=== PATIENT | female | born 1930 | race African-American/Black ===

== ENCOUNTER 2016-12-16 14:27 | Inpatient (IN) | payer MEDICARE, OTHER ==
[~2016-12-16] VITALS: Ht 163.2 cm; Wt 81.7 kg
[~2016-12-16 14:27] MED LIST: ALBU8.5H8 INH; ALLO100T PO; ALPR0.25 PO; AMLO10TA2 PO; AMLO10TA4 PO; AMLO5TAB2 PO; ASPI-612 PO; ASPI-630 PO; ATOR40TA PO; ATORVASTATIN CA80 MG PO; BUME1TAB PO; CITA40TA12 PO; CLOP75TA57 PO; DEXL60CA2 PO; ESOM40CA PO; EXEN2VIA SQ; EZET10TA18 PO; FERR-26 PO; FURO-68 PO; FURO-69 PO; FURO40TA4 PO; GLIP-26 PO; GLIP10TA13 PO; GUAI-107 PO; INSU100I17 SQ; INSU100I27 SQ; INSU100V13 SQ; INSU300I SQ; IPRA3AMP NEB; ISOS10TA2 PO; ISOS30TA4 PO; LIDO700A4 TP; LISI-338 PO; MECL25TA3 PO; METO10TA81 PO; METO25TA4 PO; METO50TA2 PO; NEBI10TA3 PO; NIFE30TA38 PO; NIFE60TA PO; NITR0.4T22 SL; PANT40TA5 PO; PIOG15TA42 PO; PRED-220 PO; PRED5TAB PO; RANO10002 PO; RANO500T2 PO; SUCR1TAB PO; SUCR1TAB35 PO; TRAM-48 PO; TRAM50TA PO; TRAZ-90 PO; TRAZ150T49 PO; UBID50CA25 PO; WARF-78 PO; WARF2TAB7 PO; WARF5TAB7 PO; Warfarin Sodium MC; co q 10
[2016-12-16 15:17] VITALS: BP 122/68
[2016-12-16 15:30] VITALS: BP 122/68
[2016-12-16 15:33] VITALS: BP 122/68
[2016-12-16] MEDS ORDERED: BUME2TAB PO (15:40)
[2016-12-16] MEDS ORDERED: ALBU1.25 NEB (15:43)
[2016-12-16 15:44] LABS: BASO # 0.1 x10^3/uL (0.0-0.2); BASO % 1 % (0-3); EOS # 0.1 x10^3/uL (0.0-0.7); EOS % 2 % (0-3); HEMATOCRIT 29.6 % (36.0-47.0); HEMOGLOBIN 9.7 g/dL (12.0-15.5); LYMPH # 1.8 x10^3/uL (1.0-4.8); LYMPH % 30 % (24-48); MEAN CORPUSCULAR HEMOGLOBIN 29 pg (25-35); MEAN CORPUSCULAR HGB CONC 33 g/dL (31-37); MEAN CORPUSCULAR VOLUME 87 fL (79-100); MONO # 0.5 x10^3/uL (0.0-1.1); MONO % 9 % (0-9); NEUT # 3.5 x10^3uL (1.8-7.7); NEUT % 59 % (31-73); PLATELET COUNT 182 x10^3/uL (140-400); RED BLOOD COUNT 3.39 x10^6/uL (3.50-5.40); RED CELL DISTRIBUTION WIDTH 15.4 % (11.5-14.5); WHITE BLOOD COUNT 5.9 x10^3/uL (4.0-11.0)
[2016-12-16] MEDS ORDERED: UBID100C26 PO (15:47)
[2016-12-16] MEDS ORDERED: ENOX40DI SQ (15:48)
[2016-12-16] MEDS ORDERED: CARV40CP PO (15:50)
[2016-12-16 15:51] LABS: ALBUMIN 3.2 g/dL (3.4-5.0); ALBUMIN/GLOBULIN RATIO 0.9 (1.0-1.7); CREATININE 1.8 mg/dL (0.6-1.0); GFR 32.3; MAGNESIUM 2.1 mg/dL (1.8-2.4); POTASSIUM 4.7 mmol/L (3.5-5.1); TOTAL BILIRUBIN 0.3 mg/dL (0.2-1.0); TOTAL PROTEIN 6.7 g/dL (6.4-8.2)
[2016-12-16] MEDS ORDERED: MAGN400T3 PO (15:51)
[2016-12-16] MEDS ORDERED: NIFE60TA16 PO (15:52)
[2016-12-16] MEDS ORDERED: INSU300I SQ (16:14)
[2016-12-16] MEDS ORDERED: traMADol 50 MG TABLET PO PRN (16:15)
[2016-12-16] MEDS ORDERED: MECLIZINE 25 MG TABLET PO PRN (16:15)
[2016-12-16] MEDS ORDERED: NITROGLYCERIN SUBLINGUAL 0.4 MG BOTTLE OF 25. SL PRN (16:15)
[2016-12-16] MEDS ORDERED: ALPRAZolam 0.25 MG TABLET PO PRN (16:15)
[2016-12-16] MEDS ORDERED: LIDOCAINE (700MG/PATCH) PATCH. TP PRN (16:15)
[2016-12-16] MEDS ORDERED: NON FORMULARY ITEM (Albuterol Sulfate (Albuterol Sulfate Neb Soln) 1 VIAL) NEB PRN (16:15)
[2016-12-16] MEDS ORDERED: DEXTROSE 50% 25 GM / 50ML DISP.SYRIN. IV PRN (16:30)
[2016-12-16] MEDS: INSULIN ASPART 300 UNITS/3 ML INSULN.PEN SQ SCH ×2 (16:30→20:23)
[2016-12-16] MEDS: SUCRALFATE 1 GM TABLET. PO SCH ×2 (16:58→20:18)
[2016-12-16] MEDS ORDERED: CARVEDILOL 12.5 MG TABLET PO SCH (17:00)
[2016-12-16] MEDS ORDERED: ALBUTEROL SULFATE 2.5 MG/3 ML NEBU. NEB PRN (17:15)
[2016-12-16] MEDS ORDERED: ENOXAPARIN 30 MG/0.3 ML DISP.SYRIN. SQ SCH ×2 (17:30→21:00)
[2016-12-16 18:45] VITALS: BP 157/76
[2016-12-16] MEDS: INSULIN DETEMIR 300 UNITS/3 ML INSULN.PEN. SQ SCH (20:19)
[2016-12-16] MEDS ORDERED: glipiZIDE XL 10 MG TAB.ER.24 PO SCH (21:00)
[2016-12-16] MEDS ORDERED: INSULIN DETEMIR 300 UNITS/3 ML INSULN.PEN. SQ SCH (21:00)
[2016-12-16] MEDS ORDERED: traZODone 50 MG TABLET. PO SCH (21:00)
[2016-12-16 22:47] VITALS: BP 166/68
[2016-12-17 05:03] VITALS: BP 122/58
[2016-12-17 06:18] LABS: HEMATOCRIT 28.9 % (36.0-47.0); HEMOGLOBIN 9.5 g/dL (12.0-15.5); RED BLOOD COUNT 3.31 x10^6/uL (3.50-5.40); RED CELL DISTRIBUTION WIDTH 15.3 % (11.5-14.5); WHITE BLOOD COUNT 5.6 x10^3/uL (4.0-11.0)
[2016-12-17 06:33] LABS: ALBUMIN 3.1 g/dL (3.4-5.0); ALBUMIN/GLOBULIN RATIO 0.9 (1.0-1.7); CREATININE 1.7 mg/dL (0.6-1.0); GFR 34.5; POTASSIUM 4.5 mmol/L (3.5-5.1); TOTAL BILIRUBIN 0.3 mg/dL (0.2-1.0); TOTAL PROTEIN 6.5 g/dL (6.4-8.2)
[2016-12-17] MEDS: INSULIN ASPART 300 UNITS/3 ML INSULN.PEN SQ SCH ×4 (07:20→20:25)
[2016-12-17] MEDS ORDERED: PANTOPRAZOLE 40 MG TABLET. PO SCH (07:30)
[2016-12-17] MEDS ORDERED: UBIDECARENONE 50 MG CAPSULE. PO SCH (09:00)
[2016-12-17] MEDS: SUCRALFATE 1 GM TABLET. PO SCH (09:00)
[2016-12-17] MEDS ORDERED: LISINOPRIL 5 MG TABLET. PO SCH (09:00)
[2016-12-17] MEDS ORDERED: MAGNESIUM OXIDE 400 MG TABLET PO SCH (09:00)
[2016-12-17] MEDS ORDERED: BUMETANIDE 2 MG TABLET PO SCH (09:00)
[2016-12-17] MEDS ORDERED: ISOSORBIDE MONONITRATE ER 30 MG TAB.ER.24H PO SCH (09:00)
[2016-12-17] MEDS ORDERED: NIFEDIPINE PO SCH (09:00)
[2016-12-17] MEDS ORDERED: NON FORMULARY ITEM (Nebivolol Hcl (Bystolic) 1 TAB) PO SCH (09:00)
[2016-12-17] MEDS ORDERED: amLODIPine BESYLATE 5 MG TABLET PO SCH (09:00)
[2016-12-17] MEDS: BUMETANIDE 1 MG TABLET PO SCH (09:30)
[2016-12-17] MEDS ORDERED: METO25TA4 PO (10:01)
[2016-12-17] MEDS ORDERED: LOSA50TA6 PO (10:01)
[2016-12-17] MEDS ORDERED: APIX2.5T PO (10:04)
[2016-12-17] MEDS ORDERED: RANO500T2 PO (10:04)
[2016-12-17] MEDS ORDERED: AMLO5TAB2 PO ×2 (10:04→10:19)
[2016-12-17] MEDS ORDERED: CHOL2000 PO (10:04)
[2016-12-17] MEDS ORDERED: INSU100V13 SQ (10:07)
[2016-12-17] MEDS ORDERED: ALPR0.25 PO (10:16)
[2016-12-17 10:44] VITALS: BP 135/66
[2016-12-17] MEDS: LOSARTAN 50 MG TABLET. PO SCH (11:12)
[2016-12-17] MEDS: RANOLAZINE 500 MG TAB.ER.12H PO SCH ×2 (11:12→20:28)
[2016-12-17] MEDS: ALPRAZolam 0.25 MG TABLET PO SCH ×2 (11:12→20:27)
[2016-12-17] MEDS: APIXABAN 2.5 MG TABLET PO SCH ×2 (11:12→20:27)
--- NOTE | 2016-12-17 13:08 | HP ---
ADMIT DATE: 12/17/2016 REASON FOR ADMISSION: Hypoglycemia, weakness, falls. HISTORY OF PRESENT ILLNESS: This is an 86-year-old female who was just in the hospital at [facility] from 12/06/2016 to 12/08/2016. She was sent back home. She was admitted for low blood sugar as well as falling, but did not stay long enough to be able to go to rehabilitation. One of her daughters called me yesterday and stated that she was still very weak. She was still having low blood sugars and was not able to get around very well, and so was admitted for evaluation. The patient reports not resting, very nervous, her bowels not moving and still some dizziness and low blood sugars at home. PAST MEDICAL HISTORY: The patient has had [id number] congestive heart failure multiple times, acute coronary syndrome requiring a stent, coronary artery disease with stents, chronic kidney disease stage 3, paroxysmal atrial fibrillation, hypertension, diabetes, long-term use of anticoagulants, moderate protein malnutrition, falls. She has sick sinus syndrome with a pacemaker placement, has had a CVA with left-sided weakness, history of TIAs, and osteoarthritis. PAST SURGICAL HISTORY: Coronary artery disease, status post PTCA, coronary angioplasty x 2 and stent deployment, sick sinus syndrome with permanent pacemaker implantation. She has had bilateral cataract extraction, cholecystectomy, appendectomy, tubal ligation, back surgery, left total hip, bilateral total knees, carpal tunnel release, laminectomy, tibial plateau, arthroplasty, and repair of umbilical hernia. ALLERGIES: Penicillin, influenza vaccine, amoxicillin, cephalexin, Reglan, Flexeril. FAMILY HISTORY: Positive for diabetes, hypertension, and stroke in her mother. SOCIAL HISTORY: She is a . She has 5 sons and 6 daughters, most of whom live in the area. Two sons live with her and currently, there is someone with her at all times. She quit driving about a year ago. 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 MEDICATIONS: Reviewed and corrected and are available on the MAR. REVIEW OF SYSTEMS: According to the patient, positive for insomnia, not resting, continued dizziness, low blood sugars, constipation. OBJECTIVE: VITAL SIGNS: Blood pressure pulse 73, respirations 20, pulse ox 96% on room air. Height 64.25 inches, weight 181.5 pounds. GENERAL: Pleasant elderly female, in no acute distress. HEENT: Her hearing is normal. Her eyes are clear. Nose is patent. Throat was clear. NECK: Supple, without adenopathy. LUNGS: Clear to auscultation. CARDIOVASCULAR: Regular rhythm and rate with a 2/6 systolic murmur. ABDOMEN: Mildly protuberant. Bowel sounds are positive. Nontender. EXTREMITIES: With a trace of edema. NEUROLOGIC: She is intact. Her gait was not examined. LABORATORY DATA: Her fasting glucose this morning was 52, yesterday afternoon was 64 with at bedtime of 207. Albumin is 3.1, BUN 25, creatinine 1.7. Hemoglobin 9.5, hematocrit 28.9. ASSESSMENT: 1. Weakness. 2. Hypoglycemia. 3. Constipation. 4. Insomnia. 5. Gastroparesis. 6. Frequent falls. 7. Multiple other chronic kidney disease, stage 3. 8. Long-term use of anticoagulants. PLAN: PT and OT evaluation and we will try to do swing bed and adjust her diabetes medications as the risk of hypoglycemia is certainly greater than mild hyperglycemia and we will monitor for falls. WARD ALCANTAR DO DR: CHANG/deepak JOB#: [id number] / [id number]
[2016-12-17 14:47] VITALS: BP 124/68
--- NOTE | 2016-12-17 17:02 | ACF ---
Admission Criteria Forms GENERAL ADMISSION CRITERIA (Place 'X' for any and all applicable criteria): Admission is indicated for ANY ONE of the following: [ ]I. Hemodynamic instability as indicated by ANY ONE of the following(1)(2) (3)(4)(5): [ ]a) Vital sign abnormality not readily corrected by appropriate treatment within 12 to 24 hours indicated by ANY ONE of the following: [ ]i) Hypotension [ ]ii) Symptomatic Tachycardia unresponsive to treatment (eg , analgesia, fluids, sedation as indicated) [ ]iii) Orthostatic vital sign changes unresponsive to treatment (eg, fluids) [ ]b) Vital sign abnormality that is severe indicated by ANY ONE of the following: [ ]i) Inadequate perfusion indicated by ANY ONE of the following: [ ]1) Lactic acidosis (greater than 2 mmol/L) [ ]2) New abnormal capillary refill (greater than 3 seconds) [ ]3) Other metabolic acidosis (arterial pH less than 7.35) not otherwise explained [ ]4) Reduced urine output [ ]5) Altered mental status [ ]6) Myocardial Ischemia [ ]v) Mean arterial pressure[A] less than 60 mm Hg [ ]vi) Mean arterial pressure[A] less than 70 mm Hg after 30 minutes of appropriate treatment (eg, fluid resuscitation) [ ]vii) IV inotropic or vasopressor medication required to maintain adequate blood pressure or perfusion [ ]viii) Sustained heart rate greater than 120 beats per minute in adult or child 6 years or older[B]] [ ]II. Hypertension requiring inpatient treatment as indicated by ANY ONE of the following(6)(7)(8): [ ]a) SBP greater than 220 mm Hg or DBP greater than 120 mm Hg despite treatment [ ]b) SBP greater than 140 mm Hg or DBP greater than 100 mm Hg with evidence of acute end organ damage as indicated by ANY ONE of the following: [ ]i) Encephalopathy [ ]ii) Acute renal failure as indicated by new onset of ANY ONE of the following(9)(10)(11)(12)(13): [ ]1) A 3-fold rise in serum creatinine from baseline [ ]2) Serum creatinine greater than 4 mg/dL ( 354 micromoles/L) with acute rise greater than 0.5 mg/dL (44.2 micromoles/L) [ ]3) Reduction of more than 75% in estimated glomerular filtration rate from baseline [ ]4) Estimated glomerular filtration rate less than 35 mL/min/1.73m2 (0.59 mL/sec/1.73m2) in child up to 18 years of age [ ]5) Cessation of urine output indicated by ALL of the following: [ ]A. Adequate volume status [ ]B. Inadequate urine output as indicated by ANY ONE of the following: [ ]a. Urine output less than 0.3 mL/kg/hr for 24 hours [ ]b. Anuria (urine output less than 0.1 mL/kg/hr) for 12 hours [ ]iii) Aortic dissection [ ]iv) Myocardial ischemia [ ]v) Left ventricular heart failure [ ]vi) Retinal hemorrhage [ ]vii) Other significant finding [ ]c) Hypertension in child requiring inpatient treatment as indicated by ALL of the following(14)(15)(16): [ ]i) Outpatient treatment not effective, not available, or not appropriate [ ]ii) SBP or DBP greater than 95th percentile for age [ ]iii) Evidence of acute end organ damage as indicated by ANY ONE of the following: [ ]1) Altered mental status [ ]2) Acute renal failure as indicated by new onset of ANY ONE of the following(9)(10)(11)(12)(13): [ ]A. A 3-fold rise in serum creatinine from baseline [ ]B. Serum creatinine greater than 4 mg/dL (354 micromoles/L) with acute rise greater than 0.5 mg/dL (44.2 micromoles/L) [ ]C. Reduction of more than 75% in estimated glomerular filtration rate from baseline [ ]D. Estimated glomerular filtration rate less than 35 mL/min/1.73m2 (0.59 mL/sec/1.73m2)in child up to 18 years of age [ ]E. Cessation of urine output indicated by ALL of the following: [ ]a. Adequate volume status [ ]b. Inadequate urine output as indicated by ANY ONE of the following: [ ]1) Urine output less than 0.3 mL/kg/hr for 24 hours [ ]2) Anuria (urine output less than 0.1 mL/kg/hr) for 12 hours [ ]3) Severe headache [ ]4) Visual disturbance [ ]5) Retinal hemorrhage [ ]6) Other significant finding [ ]III. Acute cardiac or peripheral ischemia as indicated by ANY ONE of the following: [ ]a) Acute coronary syndrome(17)(18) [ ]b) Acute peripheral ischemia (eg, pulseless, cool, mottled, or cyanotic extremity)(19) [ ]IV. Cardiac arrhythmias or findings of immediate concern indicated by ANY ONE of the following(20)(21): [ ]a) Heart rhythms that are inherently dangerous or unstable indicated by ANY ONE of the following(22)(23)(24): [ ]i) Resuscitated ventricular fibrillation or cardiac arrest [ ]ii) Ventricular escape rhythm [ ]iii) Sustained ventricular tachycardia (30 seconds or more of ventricular rhythm at greater than 100 beats per minute) [ ]iv) Nonsustained ventricular tachycardia and ANY ONE of the following: [ ]1) Suspected cardiac ischemia as cause or consequence of ventricular tachycardia [ ]2) In setting of acute myocarditis [ ]b) Unstable cardiac conduction defects indicated by ANY ONE of the following(24)(25)(26): [ ]i) Type II second-degree atrioventricular block [ ]ii) Third-degree atrioventricular block [ ]iii) New-onset left bundle branch block with suspected myocardial ischemia [ ]c) Any heart rhythm and ANY ONE of the following(22)(23)(27)(28)( 29): [ ] i) Continuous long-term ECG monitoring needed (eg, initiation of drug requiring monitoring for more than 24 hours) [ ] ii) Patient has automatic implanted cardioverter defibrillator that is repeatedly firing, malfunctioning, or in need of immediate adjustment of settings beyond the scope of ambulatory or observation care. [ ]d) Heart rhythms of concern due to ANY ONE of the following: [ ]i) Hypotension [ ]ii) Respiratory distress [ ]iii) Association with other significant symptoms (eg, bradycardia with syncope or ongoing dizziness, supraventricular tachycardia with chest pain) (27)(28) (30) [ ] V. Severe heart failure as indicated by ANY ONE of the following ( 31)(32): [ ]a) Respiratory distress [ ]b) Hypotension [ ]c) Anasarca (refractory to outpatient therapy) [ ]d) Cardiac arrhythmias of immediate concern [ ]e) Myocardial ischemia [ ]. Respiratory abnormalities, including ANY ONE of the following(33)(34) (35)(36): [ ]a) Respiratory rate greater than 30 breaths per minute unresponsive to treatment [A] [ ]b) New saturation of arterial oxygen less than 90% [ ]c) New partial pressure of carbon dioxide greater than 44 mm Hg ( 5.9 kPa) [ ]d) Supplemental oxygen or respiratory treatments needed that are new or not performable at other levels of care [ ]e) New-onset cyanosis [ ]f) Inability to protect airway [ ]g) Chronic lung disease with severe deterioration (not responsive to emergency and observation care treatment as appropriate) as indicated by ANY ONE of the following(34)(36 ): [ ]i) SaO2 5% below baseline in patient with chronic hypoxemia [ ]ii) New requirement for supplemental oxygen to keep SaO2 at baseline or acceptable level [ ]iii) Required supplemental oxygen performable only in acute inpatient setting [ ]iv) Severe airflow or ventilation abnormalities [ ]v) Previously mobile patient unable to walk between rooms [ ]vi Inability to eat or sleep due to dyspnea [ ]vii) Rapid rate of exacerbation onset [ ]viii) Altered mental status ]VII. Severe airflow or ventilation abnormalities (not responsive to emergency and observation care treatment as appropriate) as indicated by ANY ONE of the following(33)(34)(35)(37): [ ]a) PCO2 greater than 42 mm Hg (5.6 kPa) and pH less than 7.35 (new ) [ ]b) Documented PCO2 increased more than 5 mm Hg (0.7 kPa) from disease baseline [ ]c) Airflow measurements [B] less than 60% of previous best or predicted (eg, peak expiratory flow rate less than 300 L/minute) despite intensive emergent treatment [C] [ ]d) Required respiratory treatments that are performable only in acute inpatient setting [ ]VIII. Impending or actual respiratory arrest ( Also use Respiratory Failure GRG for severe respiratory disease and long-term mechanical ventilation patients) [ ]IX. Neurologic abnormalities, including ANY ONE of the following: [ ]a) New findings that suggest ANY ONE of the following: [ ]i) CLOTH EXAMINER infection(38) [ ]ii) Cerebral bleeding, ischemia, or vasospasm(39)(40) [ ]iii) Increased intracranial pressure, hydrocephalus, or cerebral edema(41)(42)(43) [ ]iv) Spinal cord injury(44) [ ]b) Uncontrolled seizures(45) [ ]c) New-onset coma (eg, Merritt coma scale score less than 9) or unexplained abnormal mental status (eg, Merritt coma scale score less than 14) [D](41)(46)(47) [ ]X. New-onset severe neurologic findings requiring inpatient care; examples include(42)(48)(49): [ ]a) Papilledema [ ]b) Cerebral edema [ ]c) Mass effect on CT scan [ ]XI. Suspected acute intra-abdominal process with peritoneal signs, abdominal mass, or similar findings (50)(51)(52) [X]XII. Severe physiologic disorder remaining after emergency or observation level care (as appropriate) as indicated by ANY ONE of the following (53): [ ]a) Significant dehydration [ ]b) Diabetic ketoacidosis [ ]c) Hyperglycemic hyperosmolar state (eg, osmolality greater than 320 mOsm/kg (mmol/kg) [X]d) Hypoglycemia [ ]e) Other (new) acid-base disorder with pH less than 7.35 or greater than 7.5(54) [ ]f) Thyroid storm (55) [ ]g) Myxedema coma (55) [ ]XIII. Abdominal abnormalities with ANY ONE of the following(56)(57): [ ]a) Absent bowel sounds with complete ileus [ ]b) Signs of intestinal obstruction or peritonitis [E] [ ]c) Nausea and vomiting that cannot be controlled with outpatient or observation care [ ]XIV. Acute renal failure as indicated by new onset of ANY ONE of the following(9)(10)(11)(12)(13): [ ]a) A 3-fold rise in serum creatinine from baseline [ ]b) Serum creatinine greater than 4 mg/dL (354 micromoles/L) with acute rise greater than 0.5 mg/dL (44.2 micromoles/L) [ ]c) Reduction of more than 75% in estimated glomerular filtration rate from baseline [ ]d) Estimated glomerular filtration rate less than 35 mL/min/ 1.73m2 (0.59 mL/sec/1.73m2) in child up to 18 years of age [ ]e) Cessation of urine output indicated by ALL of the following: [ ]i) Adequate volume status [ ]ii) Inadequate urine output as indicated by ANY ONE of the following: [ ]1) Urine output less than 0.3 mL/kg/hr for 24 hours [ ]2) Anuria (urine output less than 0.1 mL/kg/hr) for 12 hours [ ]XV. Significant uremic complications as indicated by ANY ONE of the following(58)(59)(60): [ ]a) Outpatient therapy is ineffective or not feasible for ANY ONE of the following: [ ]i) Severe heart failure [ ]ii) Severehypertension [ ]iii) Pleural effusion [ ]iv) Pericarditis or pericardial effusion [ ]b) Cardiac arrhythmias of immediate concern [ ]c) Intractable nausea or vomiting [ ]d) Recurrent seizures [ ]e) Encephalopathy [ ]f) Bleeding abnormalities (eg, platelet dysfunction) with active (eg, gastrointestinal) bleeding [ ]g) Dialysis indicated before long-term access or ambulatory arrangements can be made [ ]h) Significant metabolic or electrolyte abnormalities (eg, severe acidosis or hyperkalemia) [ ]XVI. High fever or other high-risk infection situation as indicated by ANY ONE of the following(61)(62)(63)(64): [ ]a) Outpatient and observation care antimicrobial treatment unavailable, not effective, or not appropriate [ ]b) Documented bacteremia [ ]c) Temperature greater than 40.5 degrees C (104.9 degrees F) ( oral) [ ]d) Temperature greater than 39.5 degrees C (103.1 degrees F) ( oral) or less than 36 degrees C (96.8 degrees F) (rectal) that does not respond to e treatment and observation care [ ] XVII. Temperature less than 95 degrees F (35 degrees C)(rectal)(65) [ ] XVIII. Severe nutritional abnormalities as indicated by ALL of the following (66)(67): [ ]a) Inability to tolerate or establish sufficient oral or other enteral nutrition in outpatient setting [ ]b) Parenteral nutrition regimen need that must be implemented on inpatient basis [ ] XIX. Severe electrolyte abnormalities indicated by ALL of the following(68) (69)(70): [ ]a) Electrolytes and associated findings are not as expected for patient baseline or acceptable treatment effects. [ ]b) Severe abnormalities indicated by ANY ONE of the following: [ ]i) Sodium less than 130 mEq/L (mmol/L) (new) [ ]ii)Sodium less than 135 mEq/L (mmol/L) with ANY ONE of the following: [ ]1) Uncorrectable (to near normal or chronic baseline) after trial of outpatient and emergency treatment [ ]2) Altered mental status [ ]3) Seizures [ ]4) Severe medical etiology requiring inpatient management (eg, heart failure, hypovolemia) [ ]iii) Sodium greater than 155 mEq/L (mmol/L) [ ]iv) Sodium greater than 150 mEq/L (mmol/L) with ANY ONE of the following: [ ]1) Uncorrectable (to near normal or chronic baseline) with outpatient and emergency treatment [ ]2) Altered mental status [ ]3) Seizures [ ]4) Severe medical etiology (eg, hypovolemia, diabetes insipidus) [ ]v) Potassium less than 2.5 mEq/L (mmol/L) despite outpatient and emergency treatment [ ]vi) Potassium less than 3 mEq/L (mmol/L) with ANY ONE of the following: [ ]1) Weakness [ ]2) Cardiac abnormality (eg, arrhythmia, conduction disturbance) [ ]3) Cardiac ischemia [ ]4) Ileus [ ]5) Ongoing medical cause requiring inpatient management (eg, acute renal wasting or SIADH) [ ]6) Other severe symptoms [ ]vii) Potassium greater than 6.5 mEq/L (mmol/L) [ ]viii) Potassium greater than 5 mEq/L (mmol/L) with ANY ONE of the following: [ ]1) Uncorrectable (to near normal or chronic baseline) with outpatient and emergency treatment [ ]2) Severe ECG findings [F] [ ]3) Acute worsening of renal failure (creatinine greater than 2.5 mg/dL (221 micromoles/L) or significant elevation for age and size) [ ]4) Severe weakness [ ]5) Severe medical etiology (eg, hemolysis, infection, drug overdose) [ ]ix) Calcium less than 7 mg/dL (1.75 mmol/L) despite outpatient and emergency treatment (72) [ ]x) Calcium less than 8 mg/dL (2 mmol/L) with significant symptoms or findings; examples include(72): [ ]1) Altered mental status [ ]2) Muscle spasms [ ]3) Seizures [ ]4) Breathing difficulty [ ]5) Cardiac abnormality (eg, arrhythmia or conduction disturbance) [ ]xi) Calcium greater than 14 mg/dL (3.5 mmol/L)(72) [ ]xii) Calcium greater than 12 mg/dL (3 mmol/L) with ANY ONE of the following(72): [ ]1) Uncorrectable (to near normal or chronic baseline) with outpatient and emergency treatment [ ]2) Significant dehydration or hypovolemia as indicated by ALL of the following(70)(73)(74): [ ]A. Not resolved with initial treatments [ ]B. Clinically significant dehydration as indicated by ANY ONE of the following: [ ]a. Vomiting refractory to outpatient treatment (ie, precluding oral rehydration) [ ]b. Inability to drink [ ]c. Hypernatremia or other electrolyte abnormality unable to be corrected with outpatient and emergency treatment [ ]d. Failure to remain hydrated with outpatient therapy [ ]e. Reduced urine output [ ]f. Hypotension [ ]g. Serious cause for dehydration requiring acute hospitalization (eg, bowel obstruction, increased intracranial pressure, infectious cause) [ ]h. Child with ANY ONE of the following(75): [ ]1) Severe abdominal tenderness [ ]2) Adequate care not available at home [ ]3) Severe dehydration ( greater than 9% loss of body weight) [ ]4) Significant symptoms or findings; examples include: [ ]A. Altered mental status [ ]B. Cardiac abnormality (eg, arrhythmia, conduction disturbance) [ ]C. Malignant etiology requiring inpatient treatment [ ]xiii) Phosphorus less than 1 mg/dL (0.32 mmol/L) [ ]xiv) Phosphorus less than 1.5 mg/dL (0.48 mmol/L) with ANY ONE of the following: [ ]1) Patient unresponsive to outpatient and emergency treatment [ ]2) Significant symptoms or findings; examples include: [ ]A. Weakness [ ]B. Altered mental status [ ]C. Breathing difficulty [ ]D. Seizures [ ]E. Rhabdomyolysis [ ]xv) Phosphorus greater than 10 mg/dL (3.2 mmol/L) [ ]xvi) Phosphorus greater than 4.5 mg/dL (1.45 mmol/L) (new) with ANY ONE of the following: [ ]1) Severe medical etiology (eg, crush injury, acute renal failure) [ ]2) Associated hypocalcemia with significant findings; examples include: [ ]A. Neurologic symptoms [ ]B. Altered mental status [ ]C. Muscle spasms [ ]D. Seizures [ ]E. Breathing difficulty [ ]F. Cardiac abnormality (eg, arrhythmia, conduction disturbance) [ ]xvii) Magnesium less than 1 mg/dL (0.41 mmol/L) [ ]xviii) Magnesium less than 1.5 mg/dL (0.62 mmol/L) with ANY ONE of the following: [ ]1) Patient unresponsive to outpatient and emergency treatment [ ]2) Associated hypocalcemia with significant findings; examples include: [ ]A. Altered mental status [ ]B. Muscle spasms [ ]C. Seizures [ ]D. Breathing difficulty [ ]E. Cardiac abnormality (eg, arrhythmia , conduction disturbance) [ ]3) Associated hypokalemia (potassium less than 3 mEq/L (mmol/L)) with risk of arrhythmia [ ]xix) Magnesium greater than 4 mEq/L (2 mmol/L) [ ]xx) Magnesium greater than 2.5 mEq/L (1.25 mmol/L) with significant symptoms or findings; examples include: [ ]1) Weakness [ ]2) Altered mental status [ ]3) Cardiac abnormality (eg, arrhythmia, conduction disturbance) [ ]4) Breathing difficulty [ ]5) Severe medical etiology (eg, renal failure, hypovolemia) [ ]xxi) Uric acid greater than 20 mg/dL (1190 micromoles/L)(76) [ ]xxii) Uric acid greater than 8 mg/dL (476 micromoles/L) with significant symptoms or findings of tumor lysis syndrome; examples include(76): [ ]1) Creatinine greater than 1.5 times upper limit of normal [ ]2) Cardiac abnormality (eg, arrhythmia, conduction disturbance) [ ]3) Seizure [ ]XX. Acute blood loss causing significant abnormality as indicated by ANY ONE of the following(77)(78): [ ]a) Hemoglobin less than 10 g/dL (100 g/L) (not baseline) [ ]b) Hematocrit less than 30% (0.30) (not baseline) [ ]c) Repeat hematocrit decreased more than 2% (0.02) [ ]d) Uncontrolled bleeding [ ]XXI. Severe anemia indicated by ANY ONE of the following(78)(79): [ ]a) Altered mental status [ ]b) Chest pain [ ]c) Exertional dyspnea [ ]d) Syncope [ ]e) Other findings suggesting inadequate perfusion [ ]f) Treatment with transfusion or volume replacement is ineffective at resolving ANY ONE of the following [G]: [ ]i) Tachycardia for age [ ]ii) Orthostatic vital sign changes as indicated by ANY ONE of the following(80): [ ]1) Fall in SBP of 20 mm Hg or more 1 to 3 minutes after patient sits or stands from recumbent position [ ]2) Fall in DBP of 10 mm Hg or more 1 to 3 minutes after patient sits or stands from recumbent position [ ]XXII. High-risk low platelet count as indicated by ANY ONE of the following( 81)(82): [ ]a) Severe or life-threatening bleeding (eg, intracranial, major gastrointestinal, or extensive mucosal bleeding), with any reduced platelet count [ ]b) Platelet count less than 20,000/mm3 (20 x109/L) with any active bleeding [ ]c) Platelet count less than 10,000/mm3 (10 x109/L) with minor purpura or petechiae [ ]d) Platelet count less than 5000/mm3 (5 x109/L) [ ]e) Low platelet count with hemolytic anemia [ ]XXIII. Disseminated intravascular coagulation(77)(83) [ ]XXIV. Severe adverse drug or systemic toxin reaction requiring inpatient treatment; examples include(84)(85): [ ]a) Serotonin syndrome(86) [ ]b) Neuroleptic malignant syndrome(86) [ ]c) Cholinergic syndrome with severe symptoms (eg, bronchorrhea, weakness, mental status changes, seizures) [ ]d) Sympathetic syndrome with severe symptoms (eg, seizures, mental status changes, cardiac dysrhythmias) [ ]e) Anticholinergic syndrome [ ]XXV. Severe pain requiring acute inpatient management as indicated by ALL of the following (87)(88)(89): [ ]a) Continuous or frequent (eg, every 2 to 4 hours) parenteral analgesics required [H] [ ]b) Rapid improvement expected from treatment or acute intervention (eg, surgery, anesthesia procedure) [ ]XXVI.Severe behavioral health issues judged unmanageable at a lower level of care (eg, residential) in a patient who is ANY ONE of the following(91) [ ]a) Acutely suicidal [ ]b) A danger to self (eg, self-mutilating or suicidal behavior) [ ]c) A danger to others (eg, assaultive or homicidal behavior) [ ]d) Incapacitated because of grave disability (eg, inability to provide for self at lower level of care) (92) [ ]XXVII. Inpatient monitoring needed; examples include(1)(3)(87)(93)(94)(95)(96 ): [ ]a) Vital signs, neurologic signs, or vascular checks more frequently than every 4 hours [ ]b) Cardiac or respiratory monitoring beyond the scope (eg, over 24 hours) of observation care [ ]c) Pulmonary artery catheter monitoring [ ]d) Suspected compartment syndrome(97) (98) [ ]e) Cerebral bleeding, hydrocephalus, or vasospasm monitoring [ ]f) Increased intracranial pressure or cerebral edema monitoring [ ]g) monitoring [ ]XXVIII. Treatment requiring inpatient care; examples include: [ ]a) IV fluid to replace significant ongoing losses (greater than 3 L/m2 per day)(53) [ ]b) High concentration oxygen (greater than 40%)(33)(99)(100) [ ]c) Frequent respiratory therapy (more frequently than every 4 hours) to maintain airflow rates greater than 60% of baseline(33)(99)(100) [ ]d) Epidural analgesia(87) [ ]e) IV anticoagulation, vasoactive, or antiarrhythmic medication(19 )(23) [ ]f) Acute thrombolytics (generally require 24 hours of observation )(101)(102) [ ]XXIX. Emergency procedures needed; examples include: [ ]a) Emergency inpatient surgery [ ]b) Temporary pacemaker placement(103) [ ]c) Chest tube placement with active evacuation (eg, suction, drainage)(104) [ ]d) Emergent cardioversion(105) [ ]e) Emergent cardiac or vascular procedures (eg, cardiac catheterization, angioplasty) (17)(18) [ ]f) Emergent dialysis access placement and institution(10)(106) [ ]g) Emergent pericardiocentesis(107) [ ]h) Emergent plasmapheresis or leukapheresis(83) [ ]i) Emergent tracheostomy The original [employer] content created by [employer] has been revised. The portions of the content which have been revised are identified through the use of italic text or in bold, and [facility] [employer] has neither reviewed nor approved the modified material. All other unmodified content is copyright [employer]. Please see references footnoted in the original [facility] edition 2016 Admission Criteria Met?: Yes YENNI SHAHID December 17, 2016 17:02
[2016-12-17 20:19] VITALS: BP 139/69
[2016-12-17] MEDS: INSULIN DETEMIR 300 UNITS/3 ML INSULN.PEN. SQ SCH (20:26)
[2016-12-17] MEDS: METOPROLOL TART IMMED RELEASE 25 MG TABLET PO SCH (20:27)
[2016-12-17 23:13] VITALS: BP 133/84
[2016-12-18] MEDS: INSULIN ASPART 300 UNITS/3 ML INSULN.PEN SQ SCH ×4 (07:30→20:31)
[2016-12-18 07:39] VITALS: BP 137/85
[2016-12-18] MEDS ORDERED: amLODIPine BESYLATE 5 MG TABLET PO SCH (09:00)
[2016-12-18] MEDS: BUMETANIDE 1 MG TABLET PO SCH (09:02)
[2016-12-18] MEDS: ALPRAZolam 0.25 MG TABLET PO SCH ×2 (09:02→20:31)
[2016-12-18] MEDS: APIXABAN 2.5 MG TABLET PO SCH ×2 (09:02→20:31)
[2016-12-18] MEDS: RANOLAZINE 500 MG TAB.ER.12H PO SCH ×2 (09:03→20:30)
[2016-12-18] MEDS: LOSARTAN 50 MG TABLET. PO SCH (09:04)
[2016-12-18] MEDS: METOPROLOL TART IMMED RELEASE 25 MG TABLET PO SCH ×2 (09:06→20:31)
[2016-12-18 10:45] VITALS: BP 158/65
[2016-12-18 14:27] VITALS: BP 126/66
[2016-12-18 17:52] VITALS: BP 129/74
[2016-12-18 20:31] VITALS: BP 129/74
[2016-12-18] MEDS: INSULIN DETEMIR 300 UNITS/3 ML INSULN.PEN. SQ SCH (20:33)
--- NOTE | 2016-12-19 01:16 | PN ---
DATE: 12/18/2016 PROBLEMS: 1. Weakness. 2. Hypoglycemia. 3. Constipation. 4. Insomnia. 5. Gastroparesis. 6. Frequent falls. 7. Long-term use of anticoagulants. 8. Chronic kidney disease, stage 3. 9. History of congestive heart failure. 10. Coronary artery disease. 11. Paroxysmal atrial fibrillation. 12. Normochromic normocytic anemia and mild protein-calorie malnutrition. NARRATIVE: An 86-year-old female who was admitted with weakness, hypoglycemia, and falls. Tonight will be her third night stay and she will be able to go to the swing bed status tomorrow. She was observed with the Physical Therapy Department ambulating in the [place] with a walker. The patient used some Smooth Move tea and was able to have a bowel movement and is feeling much better in that regard. OBJECTIVE: VITAL SIGNS: Blood pressure 158/65, pulse 72, respirations 20, temperature 97.7, pulse ox 100% on room air. GENERAL: The patient is sitting up in the chair, visiting. HEENT: Tongue was moist. NECK: Supple. LUNGS: Clear. CARDIOVASCULAR: Regular rhythm and rate. ABDOMEN: Soft, nontender. EXTREMITIES: With a trace of edema. LABORATORY DATA: Fasting blood sugar this morning was 80, which is improved from yesterday, which was 68 and she then had an additional . No other labs to check today. PLAN: One additional night stay and swing bed tomorrow. WARD ALCANTAR DO DR: CHANG/deepak JOB#: [id number] / [id number]
[2016-12-19] MEDS ORDERED: DEXTROSE 50% 25 GM / 50ML DISP.SYRIN. IV PRN (01:30)
[2016-12-19] MEDS ORDERED: INSU100I17 SQ (01:30)
[2016-12-19] MEDS ORDERED: NITROGLYCERIN SUBLINGUAL 0.4 MG BOTTLE OF 25. SL PRN (01:30)
[2016-12-19] MEDS ORDERED: NITR0.4T22 SL (01:30)
[2016-12-19] MEDS ORDERED: INSULIN ASPART 300 UNITS/3 ML INSULN.PEN SQ SCH (07:30)
[2016-12-24] MEDS ORDERED: CHOLECALCIFEROL (VITAMIN D3) 50,000 UNIT CAPSULE PO SCH (09:00)
== END 2016-12-19 04:14 | disposition swing bed (61) | DRG 638 ==
LOC: 1 SOUTH 14:53
PROVIDERS: ADMIT Family Medicine; ATTEND Family Medicine
DX: E11.649 Type 2 diabetes mellitus with hypoglycemia without coma (principal); E44.1 Mild protein-calorie malnutrition; I13.0 Hypertensive heart and chronic kidney disease with heart failure and stage 1 through stage 4 chronic kidney disease, or unspecified chronic kidney disease; I69.354 Hemiplegia and hemiparesis following cerebral infarction affecting left non-dominant side; R53.1 Weakness; E11.43 Type 2 diabetes mellitus with diabetic autonomic (poly)neuropathy; E16.2 Hypoglycemia, unspecified; D64.9 Anemia, unspecified; E11.22 Type 2 diabetes mellitus with diabetic chronic kidney disease; G47.00 Insomnia, unspecified; I25.10 Atherosclerotic heart disease of native coronary artery without angina pectoris; I48.0 Paroxysmal atrial fibrillation; M19.90 Unspecified osteoarthritis, unspecified site; I50.9 Heart failure, unspecified; N18.3 Chronic kidney disease, stage 3 (moderate); Z79.01 Long term (current) use of anticoagulants; Z82.3 Family history of stroke; Z82.49 Family history of ischemic heart disease and other diseases of the circulatory system; Z95.0 Presence of cardiac pacemaker; Z83.3 Family history of diabetes mellitus; Z95.5 Presence of coronary angioplasty implant and graft; Z98.41 Cataract extraction status, right eye; Z98.42 Cataract extraction status, left eye; Z68.30 Body mass index [BMI] 30.0-30.9, adult; Z88.1 Allergy status to other antibiotic agents; Z88.0 Allergy status to penicillin; Z88.7 Allergy status to serum and vaccine; Z88.8 Allergy status to other drugs, medicaments and biological substances
CPT/HCPCS: 36415; 80053; 82947; 83735; 85027; 94640; J1650; J1815; 97110; 97116; 97530

== ENCOUNTER 2017-03-26 10:48 | Inpatient (IN) | payer MEDICARE, OTHER ==
[~2017-03-26] VITALS: Ht 163.8 cm; Wt 85.9 kg
[~2017-03-26 10:48] MED LIST changes: +ALBU1.25 NEB; +APIX2.5T PO; +BUME2TAB PO; +CARV40CP PO; +CHOL2000 PO; +ENOX40DI SQ; +LOSA50TA6 PO; +MAGN400T3 PO; +NIFE60TA16 PO; +UBID100C26 PO
[2017-03-27] MEDS ORDERED: HYDR-2758 PO (12:12)
[2017-03-27] MEDS ORDERED: ACET325T9 PO (12:12)
[2017-03-27] MEDS ORDERED: MAGN400T3 PO (12:12)
[2017-03-27] MEDS ORDERED: GLIM4TAB2 PO (12:12)
[2017-03-27] MEDS ORDERED: FURO40TA4 PO (12:12)
[2017-03-27] MEDS ORDERED: PANT40TA5 PO (12:12)
[2017-03-27] MEDS ORDERED: SENN-37 PO (12:12)
[2017-03-27] MEDS ORDERED: NEBI5TAB2 PO (12:12)
[2017-03-27] MEDS ORDERED: IPRA3AMP NEB (12:43)
[2017-03-27] MEDS ORDERED: ATOR10TA60 PO (12:43)
[2017-03-27] MEDS ORDERED: DEXL60CA2 PO (12:43)
[2017-03-27] MEDS ORDERED: MECL25TA3 PO (12:43)
[2017-03-27 13:28] VITALS: BP 139/68
[2017-03-27] MEDS ORDERED: IPRATRPIUM/ALBUTEROL 0.5/2.5MG 3 ML NEBU. NEB PRN (13:45)
[2017-03-27] MEDS ORDERED: NITROGLYCERIN SUBLINGUAL 0.4 MG BOTTLE OF 25. SL PRN (13:45)
[2017-03-27] MEDS ORDERED: DEXTROSE 50% 25 GM / 50ML DISP.SYRIN. IV PRN (13:45)
[2017-03-27] MEDS ORDERED: MECLIZINE 12.5 MG TABLET. PO PRN (14:15)
[2017-03-27] MEDS: ACETAMINOPHEN 325 MG TABLET PO PRN ×2 (16:18→19:45)
[2017-03-27] MEDS: INSULIN ASPART 300 UNITS/3 ML INSULN.PEN SQ SCH ×2 (16:30→20:01)
[2017-03-27 17:59] VITALS: BP 131/86
[2017-03-27] MEDS: METOPROLOL TART IMMED RELEASE 25 MG TABLET PO SCH (19:45)
[2017-03-27] MEDS: APIXABAN 2.5 MG TABLET PO SCH (19:46)
[2017-03-27] MEDS: ATORVASTATIN CALCIUM 10 MG TABLET. PO SCH (19:46)
[2017-03-27] MEDS: INSULIN DETEMIR 300 UNITS/3 ML INSULN.PEN. SQ SCH (20:00)
[2017-03-27] MEDS: SENNOSIDES/DOCUSATE 8.6/50MG TABLET. PO SCH (20:02)
[2017-03-27] MEDS: BYSTOLIC 5 MG PO SCH (20:02)
[2017-03-27] MEDS: ALPRAZolam 0.25 MG TABLET PO PRN (21:09)
[2017-03-28 06:09] VITALS: BP 157/72
[2017-03-28] MEDS: INSULIN ASPART 300 UNITS/3 ML INSULN.PEN SQ SCH ×4 (07:30→20:36)
[2017-03-28] MEDS: SENNOSIDES/DOCUSATE 8.6/50MG TABLET. PO SCH ×2 (08:48→20:32)
[2017-03-28] MEDS: PANTOPRAZOLE 40 MG TABLET. PO SCH (08:48)
[2017-03-28] MEDS: FUROSEMIDE 40 MG TABLET PO SCH (08:48)
[2017-03-28] MEDS: APIXABAN 2.5 MG TABLET PO SCH ×2 (08:48→20:32)
[2017-03-28] MEDS: GLIMEPIRIDE 2 MG TABLET PO SCH (08:48)
[2017-03-28] MEDS: MAGNESIUM OXIDE 400 MG TABLET PO SCH (08:49)
[2017-03-28] MEDS: amLODIPine BESYLATE 5 MG TABLET PO SCH (08:49)
[2017-03-28] MEDS: METOPROLOL TART IMMED RELEASE 25 MG TABLET PO SCH ×2 (08:50→20:29)
[2017-03-28] MEDS: CHOLECALCIFEROL (VITAMIN D3) 1,000 UNIT TABLET PO SCH (08:55)
[2017-03-28] MEDS ORDERED: IPRATRPIUM/ALBUTEROL 0.5/2.5MG 3 ML NEBU. NEB ONE (09:15)
[2017-03-28 09:22] LABS: BASO % 1 % (0-3); EOS # 0.2 x10^3/uL (0.0-0.7); EOS % 3 % (0-3); HEMATOCRIT 26.4 % (36.0-47.0); HEMOGLOBIN 8.4 g/dL (12.0-15.5); LYMPH # 0.8 x10^3/uL (1.0-4.8); LYMPH % 11 % (24-48); MEAN CORPUSCULAR HEMOGLOBIN 29 pg (25-35); MEAN CORPUSCULAR HGB CONC 32 g/dL (31-37); MEAN CORPUSCULAR VOLUME 89 fL (79-100); MONO # 0.4 x10^3/uL (0.0-1.1); MONO % 6 % (0-9); NEUT % 80 % (31-73); PLATELET COUNT 180 x10^3/uL (140-400); RED BLOOD COUNT 2.95 x10^6/uL (3.50-5.40); RED CELL DISTRIBUTION WIDTH 15.7 % (11.5-14.5); WHITE BLOOD COUNT 7.5 x10^3/uL (4.0-11.0)
[2017-03-28] MEDS: IPRATRPIUM/ALBUTEROL 0.5/2.5MG 3 ML NEBU. NEB SCH ×3 (09:38→20:30)
[2017-03-28 09:44] LABS: CALCIUM 8.6 mg/dL (8.5-10.1); CREATININE 1.8 mg/dL (0.6-1.0); GFR 32.3; POTASSIUM 4.8 mmol/L (3.5-5.1)
--- NOTE | 2017-03-28 10:09 | RAD ---
Single view chest History:Shortness of breath An AP view of the chest is submitted. Comparison: 10/06/2016. Findings: There is no significant infiltrate, pleural effusion, or pneumothorax. The pericardial cardiac silhouette is within normal limits in size. There is again triple lead left electronic cardiac device. There is again cervical fusion hardware. There is degenerative change of the bilateral shoulders. There is atherosclerotic calcification near aortic arch. Impression: There is no evidence of acute cardiopulmonary disease.
--- NOTE | 2017-03-28 13:42 | HP ---
ADMIT DATE: 03/27/2017 History and physical for usp service/swing bed status. REASON FOR ADMISSION: PT and OT and usp services after a left total hip arthroplasty. HISTORY OF PRESENT ILLNESS: This is an 86-year-old female who was transferred from [facility] where she had been since 03/23/2017 and on 03/23/2017, underwent a left total hip arthroplasty. She was admitted to [facility] nursing services for further physical therapy, occupational therapy and usp services. PAST MEDICAL HISTORY: The patient has had congestive heart failure, acute coronary syndrome requiring stent, coronary artery disease with stents, chronic kidney disease stage 3, paroxysmal atrial fibrillation, hypertension, diabetes, long-term use of anticoagulants, moderate protein malnutrition, history of falls, sick sinus syndrome with pacemaker placement, CVA with left-sided weakness, history of TIAs and severe osteoarthritis. She recently had a blood transfusion at [facility] as well. PAST SURGICAL HISTORY: Recent total left hip arthroplasty, PTCA, coronary angioplasty x 2 with stent deployment, pacemaker implantation, bilateral cataract extraction, cholecystectomy, appendectomy, tubal ligation, back surgery, left total hip surgery, previous bilateral total knees, carpal tunnel release, laminectomy, tibial plateau arthroplasty and repair of umbilical hernia. ALLERGIES: PENICILLIN, INFLUENZA VACCINE, AMOXICILLIN, CEPHALEXIN, REGLAN, FLEXERIL. FAMILY HISTORY: Positive for diabetes, hypertension and stroke in her mother. SOCIAL HISTORY: She is a . She has 5 sons and 6 daughters, most of whom live in the left knee area, two sons live with her and there is someone with her at all times. She quit driving about a year ago. She does not drink alcohol or smoke, she never smoked. 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 MEDICATIONS: Reviewed from [facility] and are available on the MAR. REVIEW OF SYSTEMS: Positive for being a little bit short of breath, little bit wheezy and since hospitalization has had some weight gain. PHYSICAL EXAMINATION: VITAL SIGNS: Blood pressure is 157/72, pulse 63, respirations 18, temperature 97.8, pulse ox is 100% on 1 liter. Height is 64.5 inches, weight is 187.13 pounds, on previous admission, she was 174 pounds. GENERAL: An 86-year-old mildly short of breath. HEENT: Face is a little bit puffy. Her throat was clear. NECK: Supple. LUNGS: With mild inspiratory and expiratory wheezes. CARDIOVASCULAR: Regular rhythm and rate. ABDOMEN: Soft, nontender. EXTREMITIES: With slight trace of edema. Left hip has a battery powered drain. LABORATORY DATA: Hemoglobin is 8.4, hematocrit is 26.4. Chemistry, BNP 6801, up from previous admission; glucose is slightly elevated as well; BUN 26, creatinine 1.8 consistent with other admissions. Chest x-ray is negative acute congestive heart failure. ASSESSMENT: 1. Status post left total hip arthroplasty. 2. Mild congestive heart failure by symptoms. 3. Fall risk. 4. Type 2 diabetes. 5. Chronic kidney disease stage III. 6. Long-term use of anticoagulants. 7. Coronary artery disease. 8. Anemia. PLAN: Continue with anticoagulants, continue PT and OT, add in an extra dose of Lasix today and monitor her weight closely. WARD ALCANTAR DO DR: CHANG/deepak JOB#: [id number] / [id number]
[2017-03-28] MEDS: ACETAMINOPHEN 325 MG TABLET PO PRN ×2 (18:14→20:46)
[2017-03-28] MEDS: ATORVASTATIN CALCIUM 10 MG TABLET. PO SCH (20:29)
[2017-03-28] MEDS: INSULIN DETEMIR 300 UNITS/3 ML INSULN.PEN. SQ SCH (20:36)
[2017-03-28] MEDS: BYSTOLIC 5 MG PO SCH (20:37)
[2017-03-28] MEDS: ALPRAZolam 0.25 MG TABLET PO PRN (20:46)
[2017-03-29] MEDS: IPRATRPIUM/ALBUTEROL 0.5/2.5MG 3 ML NEBU. NEB SCH ×4 (05:58→21:16)
[2017-03-29 06:58] LABS: BASO % 0 % (0-3); EOS # 0.2 x10^3/uL (0.0-0.7); EOS % 3 % (0-3); HEMATOCRIT 24.1 % (36.0-47.0); HEMOGLOBIN 7.7 g/dL (12.0-15.5); LYMPH # 1.1 x10^3/uL (1.0-4.8); LYMPH % 16 % (24-48); MEAN CORPUSCULAR HEMOGLOBIN 29 pg (25-35); MEAN CORPUSCULAR HGB CONC 32 g/dL (31-37); MEAN CORPUSCULAR VOLUME 89 fL (79-100); MONO # 0.6 x10^3/uL (0.0-1.1); MONO % 8 % (0-9); NEUT # 5.2 x10^3uL (1.8-7.7); NEUT % 73 % (31-73); PLATELET COUNT 181 x10^3/uL (140-400); RED BLOOD COUNT 2.71 x10^6/uL (3.50-5.40); RED CELL DISTRIBUTION WIDTH 15.3 % (11.5-14.5); WHITE BLOOD COUNT 7.1 x10^3/uL (4.0-11.0)
[2017-03-29] MEDS: INSULIN ASPART 300 UNITS/3 ML INSULN.PEN SQ SCH ×4 (07:07→20:21)
[2017-03-29 07:10] LABS: ALBUMIN 2.3 g/dL (3.4-5.0); ALBUMIN/GLOBULIN RATIO 0.6 (1.0-1.7); CALCIUM 8.3 mg/dL (8.5-10.1); CREATININE 1.8 mg/dL (0.6-1.0); GFR 32.3; MAGNESIUM 1.9 mg/dL (1.8-2.4); POTASSIUM 4.2 mmol/L (3.5-5.1); TOTAL BILIRUBIN 0.3 mg/dL (0.2-1.0)
[2017-03-29] MEDS: FUROSEMIDE 40 MG TABLET PO SCH (07:59)
[2017-03-29] MEDS: APIXABAN 2.5 MG TABLET PO SCH ×2 (08:01→20:21)
[2017-03-29] MEDS: amLODIPine BESYLATE 5 MG TABLET PO SCH (08:01)
[2017-03-29] MEDS: GLIMEPIRIDE 2 MG TABLET PO SCH (08:02)
[2017-03-29] MEDS: METOPROLOL TART IMMED RELEASE 25 MG TABLET PO SCH ×2 (08:02→20:21)
[2017-03-29] MEDS: SENNOSIDES/DOCUSATE 8.6/50MG TABLET. PO SCH ×2 (08:02→20:21)
[2017-03-29] MEDS: PANTOPRAZOLE 40 MG TABLET. PO SCH (08:02)
[2017-03-29] MEDS: MAGNESIUM OXIDE 400 MG TABLET PO SCH (08:02)
[2017-03-29 08:03] VITALS: BP 152/68
[2017-03-29] MEDS ORDERED: FUROSEMIDE 40 MG TABLET PO ONE (09:00)
[2017-03-29] MEDS: ACETAMINOPHEN 325 MG TABLET PO PRN ×2 (11:03→20:29)
[2017-03-29 18:18] VITALS: BP 147/60
[2017-03-29] MEDS: BYSTOLIC 5 MG PO SCH (20:20)
[2017-03-29] MEDS: ATORVASTATIN CALCIUM 10 MG TABLET. PO SCH (20:21)
[2017-03-29] MEDS: ALPRAZolam 0.25 MG TABLET PO PRN (20:21)
[2017-03-29] MEDS: INSULIN DETEMIR 300 UNITS/3 ML INSULN.PEN. SQ SCH (20:41)
[2017-03-30] MEDS: IPRATRPIUM/ALBUTEROL 0.5/2.5MG 3 ML NEBU. NEB SCH ×4 (05:43→20:36)
[2017-03-30 06:06] LABS: CALCIUM 8.7 mg/dL (8.5-10.1); CREATININE 1.6 mg/dL (0.6-1.0); MAGNESIUM 1.7 mg/dL (1.8-2.4); POTASSIUM 4.2 mmol/L (3.5-5.1)
[2017-03-30 06:07] VITALS: BP 151/63
[2017-03-30] MEDS: INSULIN ASPART 300 UNITS/3 ML INSULN.PEN SQ SCH ×4 (07:30→21:17)
[2017-03-30] MEDS ORDERED: FUROSEMIDE 40 MG TABLET PO ONE (08:00)
[2017-03-30] MEDS: FUROSEMIDE 40 MG TABLET PO SCH (08:44)
[2017-03-30] MEDS: APIXABAN 2.5 MG TABLET PO SCH ×2 (08:45→20:32)
[2017-03-30] MEDS: MAGNESIUM OXIDE 400 MG TABLET PO SCH (08:45)
[2017-03-30] MEDS: GLIMEPIRIDE 2 MG TABLET PO SCH (08:45)
[2017-03-30] MEDS: amLODIPine BESYLATE 5 MG TABLET PO SCH (08:45)
[2017-03-30] MEDS: PANTOPRAZOLE 40 MG TABLET. PO SCH (08:45)
[2017-03-30] MEDS: SENNOSIDES/DOCUSATE 8.6/50MG TABLET. PO SCH ×2 (08:45→20:31)
[2017-03-30] MEDS: METOPROLOL TART IMMED RELEASE 25 MG TABLET PO SCH ×2 (08:45→20:31)
[2017-03-30] MEDS: ACETAMINOPHEN 325 MG TABLET PO PRN (14:40)
[2017-03-30 18:30] VITALS: BP 131/68
[2017-03-30] MEDS: ATORVASTATIN CALCIUM 10 MG TABLET. PO SCH (20:31)
[2017-03-30] MEDS: BYSTOLIC 5 MG PO SCH (20:32)
[2017-03-30] MEDS: INSULIN DETEMIR 300 UNITS/3 ML INSULN.PEN. SQ SCH (21:18)
[2017-03-31] MEDS: IPRATRPIUM/ALBUTEROL 0.5/2.5MG 3 ML NEBU. NEB SCH ×4 (04:23→21:21)
[2017-03-31 04:24] VITALS: BP 148/88
[2017-03-31] MEDS: INSULIN ASPART 300 UNITS/3 ML INSULN.PEN SQ SCH ×4 (07:30→21:59)
[2017-03-31] MEDS: FUROSEMIDE 40 MG TABLET PO SCH (09:05)
[2017-03-31] MEDS: GLIMEPIRIDE 2 MG TABLET PO SCH (09:05)
[2017-03-31] MEDS: PANTOPRAZOLE 40 MG TABLET. PO SCH (09:05)
[2017-03-31] MEDS: METOPROLOL TART IMMED RELEASE 25 MG TABLET PO SCH ×2 (09:05→21:26)
[2017-03-31] MEDS: APIXABAN 2.5 MG TABLET PO SCH ×2 (09:05→21:26)
[2017-03-31] MEDS: ACETAMINOPHEN 325 MG TABLET PO PRN (09:06)
[2017-03-31] MEDS: MAGNESIUM OXIDE 400 MG TABLET PO SCH (09:06)
[2017-03-31] MEDS: SENNOSIDES/DOCUSATE 8.6/50MG TABLET. PO SCH ×2 (09:06→21:26)
[2017-03-31] MEDS: amLODIPine BESYLATE 5 MG TABLET PO SCH (09:06)
[2017-03-31 18:43] VITALS: BP 142/55
[2017-03-31] MEDS: BYSTOLIC 5 MG PO SCH (21:00)
[2017-03-31] MEDS: ATORVASTATIN CALCIUM 10 MG TABLET. PO SCH (21:26)
[2017-03-31] MEDS: INSULIN DETEMIR 300 UNITS/3 ML INSULN.PEN. SQ SCH (21:57)
[2017-04-01 04:12] VITALS: BP 161/72
[2017-04-01] MEDS: IPRATRPIUM/ALBUTEROL 0.5/2.5MG 3 ML NEBU. NEB SCH ×4 (05:34→22:00)
[2017-04-01] MEDS: INSULIN ASPART 300 UNITS/3 ML INSULN.PEN SQ SCH ×4 (07:30→20:48)
[2017-04-01] MEDS: PANTOPRAZOLE 40 MG TABLET. PO SCH (09:29)
[2017-04-01] MEDS: GLIMEPIRIDE 2 MG TABLET PO SCH (09:30)
[2017-04-01] MEDS: APIXABAN 2.5 MG TABLET PO SCH ×2 (09:31→20:41)
[2017-04-01] MEDS: FUROSEMIDE 40 MG TABLET PO SCH (09:31)
[2017-04-01] MEDS: METOPROLOL TART IMMED RELEASE 25 MG TABLET PO SCH ×2 (09:33→20:41)
[2017-04-01] MEDS: MAGNESIUM OXIDE 400 MG TABLET PO SCH (09:33)
[2017-04-01] MEDS: amLODIPine BESYLATE 5 MG TABLET PO SCH (09:34)
[2017-04-01] MEDS: SENNOSIDES/DOCUSATE 8.6/50MG TABLET. PO SCH ×2 (09:35→20:41)
[2017-04-01] MEDS: ACETAMINOPHEN 325 MG TABLET PO PRN (09:36)
[2017-04-01 18:32] VITALS: BP 137/80
[2017-04-01] MEDS: BYSTOLIC 5 MG PO SCH (20:40)
[2017-04-01] MEDS: ATORVASTATIN CALCIUM 10 MG TABLET. PO SCH (20:41)
[2017-04-01] MEDS: ALPRAZolam 0.25 MG TABLET PO PRN (20:44)
[2017-04-01] MEDS: INSULIN DETEMIR 300 UNITS/3 ML INSULN.PEN. SQ SCH (20:48)
--- NOTE | 2017-04-02 02:19 | PN ---
DATE: 04/01/2017 SUBJECTIVE: The patient is resting slightly propped up in bed, resting comfortably, in no apparent distress. The nursing staff are concerned that she has been complaining of being dizzy. Her blood pressure was high. She did complain of what seems to be vertigo with things spinning around, although denied any nausea or vomiting. This happened twice now; last Thursday and today. She also complained of swelling of both lower extremities; however, the wound in her right hip is healing nicely with no redness, tenderness or discharge. PHYSICAL EXAMINATION: GENERAL: When I examined her, she was slightly pale, but no jaundice, cyanosis, or thyromegaly. No jugular venous distention, with mild bilateral lower limb edema. VITAL SIGNS: Her heart rate was 60, blood pressure was 161/72, temperature was 98.6, respiratory rate 20, and oxygen saturation was 100% on 1 liter of oxygen. HEAD, EYES, EARS, NOSE AND THROAT: Showed normocephalic, atraumatic. NECK: Supple. HEART: Showed normal first and second heart sounds with no gallop, rub or murmur. CHEST: Clear to auscultation. No crepitation or rhonchi. ABDOMEN: Distended, soft, nontender. No guarding or rigidity. No organomegaly. Hernial orifices intact. Bowel sounds normal. NEUROLOGIC: She was awake, alert, responding appropriately. Cranial nerves intact. She moves extremities without difficulty. She ambulates with a walker without difficulty. Her intake over the last 24 hours was 1900, output was 3600. LABORATORY DATA: Her white cell count was 7100, hemoglobin 7.7, hematocrit 24, MCV 89 and platelet count of 181,000. Her most recent chemistry showed a serum sodium 144, potassium 4.2, chloride 108, bicarbonate 29, anion gap of 7, BUN 20, creatinine 1.6, estimated GFR was 37 mL per minute. Her glucose was 61, calcium was 8.7, magnesium was 1.7. ASSESSMENT: 1. Status post right total hip arthroplasty revision. 2. Type 2 diabetes. 3. Chronic kidney disease stage III, coronary artery disease, anemia, probably diastolic congestive heart failure. She is currently on Levemir insulin 20 units subcutaneously at bedtime. She is on glimepiride 4 mg daily and furosemide 40 mg daily, amlodipine 5 mg daily. She is also on metoprolol 25 mg twice a day. PLAN: My plan is to repeat her labs and increase her amlodipine to 10 mg and decide on further management accordingly. JAMES MULTANI MD DR: ESTEPHANIA/deepak JOB#: [id number] / [id number]
[2017-04-02 05:35] VITALS: BP 152/71
[2017-04-02] MEDS: IPRATRPIUM/ALBUTEROL 0.5/2.5MG 3 ML NEBU. NEB SCH ×4 (06:14→20:36)
[2017-04-02 06:36] LABS: ALBUMIN 2.5 g/dL (3.4-5.0); ALBUMIN/GLOBULIN RATIO 0.7 (1.0-1.7); CALCIUM 8.6 mg/dL (8.5-10.1); CREATININE 1.5 mg/dL (0.6-1.0); GFR 39.8; MAGNESIUM 1.7 mg/dL (1.8-2.4); POTASSIUM 3.9 mmol/L (3.5-5.1); TOTAL BILIRUBIN 0.3 mg/dL (0.2-1.0)
[2017-04-02 06:42] LABS: HEMATOCRIT 23.3 % (36.0-47.0); HEMOGLOBIN 7.8 g/dL (12.0-15.5); RED BLOOD COUNT 2.72 x10^6/uL (3.50-5.40); RED CELL DISTRIBUTION WIDTH 14.9 % (11.5-14.5); WHITE BLOOD COUNT 7.6 x10^3/uL (4.0-11.0)
[2017-04-02] MEDS: INSULIN ASPART 300 UNITS/3 ML INSULN.PEN SQ SCH ×4 (07:18→20:24)
[2017-04-02] MEDS: PANTOPRAZOLE 40 MG TABLET. PO SCH (08:20)
[2017-04-02] MEDS: METOPROLOL TART IMMED RELEASE 25 MG TABLET PO SCH ×2 (08:20→20:16)
[2017-04-02] MEDS: SENNOSIDES/DOCUSATE 8.6/50MG TABLET. PO SCH ×2 (08:20→20:15)
[2017-04-02] MEDS: GLIMEPIRIDE 2 MG TABLET PO SCH (08:20)
[2017-04-02] MEDS: MAGNESIUM OXIDE 400 MG TABLET PO SCH (08:20)
[2017-04-02] MEDS: amLODIPine BESYLATE 10 MG TABLET PO SCH (08:21)
[2017-04-02] MEDS: FUROSEMIDE 40 MG TABLET PO SCH (08:21)
[2017-04-02] MEDS: APIXABAN 2.5 MG TABLET PO SCH ×2 (08:21→20:15)
[2017-04-02 18:46] VITALS: BP 152/58
[2017-04-02] MEDS: ATORVASTATIN CALCIUM 10 MG TABLET. PO SCH (20:15)
[2017-04-02] MEDS: ALPRAZolam 0.25 MG TABLET PO PRN (20:15)
[2017-04-02] MEDS: ACETAMINOPHEN 325 MG TABLET PO PRN (20:15)
[2017-04-02] MEDS: BYSTOLIC 5 MG PO SCH (20:17)
[2017-04-02] MEDS: INSULIN DETEMIR 300 UNITS/3 ML INSULN.PEN. SQ SCH (20:23)
[2017-04-03 03:15] LABS: HEMOGLOBIN A1C 6.9 % (4.8-5.6)
[2017-04-03 05:20] VITALS: BP 138/81
[2017-04-03] MEDS: IPRATRPIUM/ALBUTEROL 0.5/2.5MG 3 ML NEBU. NEB SCH ×4 (05:39→21:15)
[2017-04-03] MEDS: INSULIN ASPART 300 UNITS/3 ML INSULN.PEN SQ SCH ×4 (07:30→20:39)
[2017-04-03] MEDS: MAGNESIUM OXIDE 400 MG TABLET PO SCH (08:14)
[2017-04-03] MEDS: APIXABAN 2.5 MG TABLET PO SCH ×2 (08:14→20:23)
[2017-04-03] MEDS: FUROSEMIDE 40 MG TABLET PO SCH (08:15)
[2017-04-03] MEDS: METOPROLOL TART IMMED RELEASE 25 MG TABLET PO SCH ×2 (08:15→20:23)
[2017-04-03] MEDS: amLODIPine BESYLATE 10 MG TABLET PO SCH (08:15)
[2017-04-03] MEDS: PANTOPRAZOLE 40 MG TABLET. PO SCH (08:15)
[2017-04-03] MEDS: SENNOSIDES/DOCUSATE 8.6/50MG TABLET. PO SCH ×2 (08:15→20:22)
[2017-04-03] MEDS: GLIMEPIRIDE 2 MG TABLET PO SCH (08:15)
[2017-04-03] MEDS: ACETAMINOPHEN 325 MG TABLET PO PRN (10:12)
[2017-04-03 20:12] VITALS: BP 156/66
[2017-04-03] MEDS: ATORVASTATIN CALCIUM 10 MG TABLET. PO SCH (20:23)
[2017-04-03] MEDS: BYSTOLIC 5 MG PO SCH (20:24)
[2017-04-03] MEDS: INSULIN DETEMIR 300 UNITS/3 ML INSULN.PEN. SQ SCH (20:40)
[2017-04-04] MEDS: IPRATRPIUM/ALBUTEROL 0.5/2.5MG 3 ML NEBU. NEB SCH ×4 (05:35→22:13)
[2017-04-04 05:50] VITALS: BP 144/70
[2017-04-04] MEDS: INSULIN ASPART 300 UNITS/3 ML INSULN.PEN SQ SCH ×4 (07:30→20:52)
[2017-04-04] MEDS: PANTOPRAZOLE 40 MG TABLET. PO SCH (08:10)
[2017-04-04] MEDS: SENNOSIDES/DOCUSATE 8.6/50MG TABLET. PO SCH ×2 (08:11→20:19)
[2017-04-04] MEDS: APIXABAN 2.5 MG TABLET PO SCH ×2 (08:11→20:19)
[2017-04-04] MEDS: FUROSEMIDE 40 MG TABLET PO SCH (08:11)
[2017-04-04] MEDS: amLODIPine BESYLATE 10 MG TABLET PO SCH (08:11)
[2017-04-04] MEDS: MAGNESIUM OXIDE 400 MG TABLET PO SCH (08:12)
[2017-04-04] MEDS: METOPROLOL TART IMMED RELEASE 25 MG TABLET PO SCH ×2 (08:12→20:19)
[2017-04-04] MEDS: GLIMEPIRIDE 2 MG TABLET PO SCH (08:12)
[2017-04-04] MEDS: CHOLECALCIFEROL (VITAMIN D3) 1,000 UNIT TABLET PO SCH (08:40)
[2017-04-04] MEDS: ACETAMINOPHEN 325 MG TABLET PO PRN (09:35)
[2017-04-04 19:01] VITALS: BP 115/69
[2017-04-04] MEDS: ATORVASTATIN CALCIUM 10 MG TABLET. PO SCH (20:19)
[2017-04-04] MEDS: BYSTOLIC 5 MG PO SCH (20:20)
[2017-04-04] MEDS: INSULIN DETEMIR 300 UNITS/3 ML INSULN.PEN. SQ SCH (20:52)
[2017-04-05 05:11] VITALS: BP 136/58
[2017-04-05] MEDS: IPRATRPIUM/ALBUTEROL 0.5/2.5MG 3 ML NEBU. NEB SCH ×4 (05:25→21:50)
[2017-04-05 06:58] LABS: BASO # 0.1 x10^3/uL (0.0-0.2); BASO % 1 % (0-3); EOS # 0.4 x10^3/uL (0.0-0.7); EOS % 4 % (0-3); HEMATOCRIT 26.2 % (36.0-47.0); HEMOGLOBIN 8.3 g/dL (12.0-15.5); LYMPH # 1.6 x10^3/uL (1.0-4.8); LYMPH % 16 % (24-48); MEAN CORPUSCULAR HEMOGLOBIN 28 pg (25-35); MEAN CORPUSCULAR HGB CONC 32 g/dL (31-37); MEAN CORPUSCULAR VOLUME 89 fL (79-100); MONO # 0.6 x10^3/uL (0.0-1.1); MONO % 6 % (0-9); NEUT # 7.2 x10^3uL (1.8-7.7); NEUT % 73 % (31-73); PLATELET COUNT 301 x10^3/uL (140-400); RED BLOOD COUNT 2.95 x10^6/uL (3.50-5.40); RED CELL DISTRIBUTION WIDTH 15.1 % (11.5-14.5); WHITE BLOOD COUNT 9.8 x10^3/uL (4.0-11.0)
[2017-04-05 07:30] VITALS: BP 154/68
[2017-04-05] MEDS: INSULIN ASPART 300 UNITS/3 ML INSULN.PEN SQ SCH ×3 (07:30→17:05)
[2017-04-05] MEDS: PANTOPRAZOLE 40 MG TABLET. PO SCH (07:41)
[2017-04-05] MEDS: GLIMEPIRIDE 2 MG TABLET PO SCH (08:27)
[2017-04-05] MEDS: FUROSEMIDE 40 MG TABLET PO SCH (08:28)
[2017-04-05] MEDS: APIXABAN 2.5 MG TABLET PO SCH ×2 (08:28→19:58)
[2017-04-05] MEDS: MAGNESIUM OXIDE 400 MG TABLET PO SCH (08:29)
[2017-04-05] MEDS: METOPROLOL TART IMMED RELEASE 25 MG TABLET PO SCH ×2 (08:29→19:58)
[2017-04-05] MEDS: SENNOSIDES/DOCUSATE 8.6/50MG TABLET. PO SCH ×2 (08:30→20:03)
[2017-04-05] MEDS: amLODIPine BESYLATE 10 MG TABLET PO SCH (08:30)
[2017-04-05] MEDS ORDERED: FUROSEMIDE 40 MG TABLET PO ONE (12:45)
[2017-04-05 18:58] VITALS: BP 156/68
[2017-04-05] MEDS: ATORVASTATIN CALCIUM 10 MG TABLET. PO SCH (19:57)
[2017-04-05] MEDS: BYSTOLIC 5 MG PO SCH (19:58)
[2017-04-05] MEDS: ALPRAZolam 0.25 MG TABLET PO PRN (19:58)
[2017-04-05] MEDS: INSULIN DETEMIR 300 UNITS/3 ML INSULN.PEN. SQ SCH (20:00)
--- NOTE | 2017-04-06 02:47 | PN ---
DATE: 04/05/2017 SUBJECTIVE: the patient is sitting in her recliner, eating her lunch comfortably. However, on questioning her, she complained of swelling of her legs and pain, stating that sometimes when her gouty arthritis flares up, she feels this way. Although, I could not really see any inflammation on her first tarsometatarsal joint, no redness or tenderness. She does have bilateral lower extremity edema; however, she denied any chest pain or shortness of breath. Denied any orthopnea or paroxysmal nocturnal dyspnea. PHYSICAL EXAMINATION: GENERAL: When I examined her, she was pale, but no jaundice, cyanosis, or thyromegaly. No jugular venous distention. No limb edema. VITAL SIGNS: Her heart rate was 65, blood pressure 154/65, temperature was 98.5, respiratory rate was 16 and oxygen saturation was 100% on 3 liters of oxygen. HEAD, EYES, EARS, NOSE AND THROAT: Showed normocephalic, atraumatic. NECK: Supple. HEART: Showed normal first and second sounds. No gallop, rub or murmur. CHEST: Clear to auscultation. No crepitation or rhonchi. ABDOMEN: Distended, soft, nontender. No guarding or rigidity. No organomegaly. All hernial orifices are intact. Bowel sounds are normal. NEUROLOGIC: She was awake, alert, responding appropriately. All her cranial nerves are intact. She moves extremities without difficulty. She ambulates with a walker with standby assist. Her intake over the last 24 hours was 1316, no output was recorded. LABORATORY DATA: Most recent lab work showed that her BUN was 21, creatinine 1.5. Her calcium was 8.6, magnesium 1.7. ASSESSMENT: 1. Status post right total hip arthroplasty revision, doing well. The surgical wounds are healing nicely with no redness, tenderness or discharge. 2. Type 2 diabetes mellitus, well controlled. 3. Chronic kidney disease stage 3. 4. Coronary artery disease. 5. Anemia. 6. Diastolic congestive heart failure. 7. Mild bilateral lower limb edema, questionable flareup of polyarticular gouty arthritis. PLAN: My plan is to add extra dose of furosemide today. We will repeat her labs tomorrow including a serum uric acid, CBC, CMP, sed rate, CRP and decide on further management accordingly. I will also cover her with NovoLog insulin only before meals. Meanwhile, continue with all other medication. JAMES MULTANI MD DR: ESTEPHANIA/deepak JOB#: [id number] / [id number]
[2017-04-06] MEDS: IPRATRPIUM/ALBUTEROL 0.5/2.5MG 3 ML NEBU. NEB SCH ×4 (05:23→20:00)
[2017-04-06 06:10] VITALS: BP 129/53
[2017-04-06 06:38] LABS: HEMATOCRIT 23.7 % (36.0-47.0); HEMOGLOBIN 7.7 g/dL (12.0-15.5); RED BLOOD COUNT 2.69 x10^6/uL (3.50-5.40); RED CELL DISTRIBUTION WIDTH 15.3 % (11.5-14.5); WHITE BLOOD COUNT 8.9 x10^3/uL (4.0-11.0)
[2017-04-06 06:39] LABS: ALBUMIN 2.6 g/dL (3.4-5.0); ALBUMIN/GLOBULIN RATIO 0.7 (1.0-1.7); C REACTIVE PROTEIN 14.9 mg/L (0-3.3); CALCIUM 8.5 mg/dL (8.5-10.1); CREATININE 1.8 mg/dL (0.6-1.0); GFR 32.3; POTASSIUM 4.1 mmol/L (3.5-5.1); TOTAL BILIRUBIN 0.2 mg/dL (0.2-1.0); TOTAL PROTEIN 6.1 g/dL (6.4-8.2); URIC ACID 8.4 mg/dL (2.6-6.0)
[2017-04-06] MEDS: INSULIN ASPART 300 UNITS/3 ML INSULN.PEN SQ SCH ×3 (07:30→16:56)
[2017-04-06] MEDS: GLIMEPIRIDE 2 MG TABLET PO SCH (08:37)
[2017-04-06] MEDS: APIXABAN 2.5 MG TABLET PO SCH ×2 (08:37→20:15)
[2017-04-06] MEDS: PANTOPRAZOLE 40 MG TABLET. PO SCH (08:37)
[2017-04-06] MEDS: SENNOSIDES/DOCUSATE 8.6/50MG TABLET. PO SCH ×2 (08:37→20:15)
[2017-04-06] MEDS: amLODIPine BESYLATE 10 MG TABLET PO SCH (08:37)
[2017-04-06] MEDS: METOPROLOL TART IMMED RELEASE 25 MG TABLET PO SCH ×2 (08:37→20:16)
[2017-04-06] MEDS: FUROSEMIDE 40 MG TABLET PO SCH (08:38)
[2017-04-06] MEDS: MAGNESIUM OXIDE 400 MG TABLET PO SCH (08:38)
[2017-04-06 17:47] VITALS: BP 102/61
[2017-04-06 20:10] VITALS: BP 136/75
[2017-04-06] MEDS: ACETAMINOPHEN 325 MG TABLET PO PRN (20:15)
[2017-04-06] MEDS: ALPRAZolam 0.25 MG TABLET PO PRN (20:15)
[2017-04-06] MEDS: ATORVASTATIN CALCIUM 10 MG TABLET. PO SCH (20:15)
[2017-04-06] MEDS: BYSTOLIC 5 MG PO SCH (20:16)
[2017-04-06] MEDS: INSULIN DETEMIR 300 UNITS/3 ML INSULN.PEN. SQ SCH (20:20)
--- NOTE | 2017-04-07 01:42 | PN ---
DATE: 04/06/2017 SUBJECTIVE: The patient is sitting comfortably in her recliner in no apparent distress. She continued to complain of swelling of her legs and pain, although the pain is diffuse and not characteristic of acute gouty arthritis. I did send her labs yesterday including her serum uric acid, which was slightly high at 8.4. C-reactive protein was 14.9 and a sedimentation rate was elevated at 88. OBJECTIVE: GENERAL: When I examined her, she looked pale, no jaundice, cyanosis, lymphadenopathy, or thyromegaly. No jugular venous distention. No limb edema. VITAL SIGNS: Her heart rate was 60, blood pressure 129/53, temperature was 98.3, respiratory rate was 18 and oxygen saturation was 100% on 2 liters of oxygen. HEENT: Showed normocephalic, atraumatic. NECK: Supple. HEART: Showed normal first and second sounds. No gallop, rub or murmur. CHEST: Clear to auscultation. No crepitation or rhonchi. ABDOMEN: Distended, soft, nontender. No guarding or rigidity. No organomegaly. Hernial orifices intact. Bowel sounds normal. NEUROLOGIC: She was awake, alert, responding appropriately. Cranial nerves intact. She ambulates with a walker. Her intake over the last 24 hours is ____. LABORATORY DATA: Her lab work this morning showed a white cell count 8900, hemoglobin 7.7, hematocrit 23.7, MCV 88 and platelet count 266,000. Her chemistry showed a serum sodium of 143, potassium 4.1, chloride 108, bicarbonate 33, anion gap of 2, BUN 30, creatinine 1.8. Estimated GFR was 32 mL per minute. Her glucose was 126, calcium was 8.5. Uric acid was 8.4. Total bilirubin, AST, ALT were normal. Alkaline phosphatase was also normal. Total protein was 6.1, albumin 2.6. ASSESSMENT AND PLAN: 1. Status post right total hip arthroplasty revision, doing well, the surgical wounds are healing nicely with no redness, tenderness or discharge. 2. Type 2 diabetes mellitus, well controlled. 3. Chronic kidney disease, stage III. 4. Coronary artery disease, currently asymptomatic. 5. Normochromic normocytic anemia. 6. Diastolic congestive heart failure. 7. Mild bilateral lower limb edema. 8. Hyperuricemia with no evidence of acute gouty arthritis. I did add metolazone to be given Thursday, Thursday, and Thursday. She continued to have bilateral lower limb edema. I gave her the option of starting her on a tapering course of steroids, but the patient was reluctant to undergo that. She is not a good candidate for nonsteroidal anti-inflammatory medication or colchicine, and allopurinol could not be started without something to suppress the flareups. I advised her to follow up with her primary care physician. I will also order her serum iron, total iron binding capacity as well as vitamin B12 as she might be a candidate for starting on erythropoietin. JAMES MULTANI MD DR: ESTEPHANIA/deepak JOB#: [id number] / [id number]
[2017-04-07 05:25] VITALS: BP 149/68
[2017-04-07] MEDS: IPRATRPIUM/ALBUTEROL 0.5/2.5MG 3 ML NEBU. NEB SCH ×2 (05:39→11:41)
[2017-04-07] MEDS: INSULIN ASPART 300 UNITS/3 ML INSULN.PEN SQ SCH ×2 (07:30→11:41)
[2017-04-07] MEDS: GLIMEPIRIDE 2 MG TABLET PO SCH (08:38)
[2017-04-07] MEDS: PANTOPRAZOLE 40 MG TABLET. PO SCH (08:38)
[2017-04-07] MEDS: APIXABAN 2.5 MG TABLET PO SCH (08:39)
[2017-04-07] MEDS: FUROSEMIDE 40 MG TABLET PO SCH (08:39)
[2017-04-07] MEDS: METOPROLOL TART IMMED RELEASE 25 MG TABLET PO SCH (08:41)
[2017-04-07] MEDS: MAGNESIUM OXIDE 400 MG TABLET PO SCH (08:41)
[2017-04-07 08:42] VITALS: BP 149/68
[2017-04-07] MEDS: amLODIPine BESYLATE 10 MG TABLET PO SCH (08:42)
[2017-04-07] MEDS: SENNOSIDES/DOCUSATE 8.6/50MG TABLET. PO SCH (08:42)
[2017-04-07] MEDS ORDERED: METO2.5T PO (11:59)
[2017-04-07] MEDS ORDERED: ALLO100T PO (11:59)
[2017-04-07] MEDS ORDERED: AMLO5TAB2 PO (11:59)
--- NOTE | 2017-04-07 12:29 | PDOC3 ---
Discharge Summary Visit Information Date of Admission: Mar 27, 2017 Date of Discharge: Apr 07, 2017 Final Diagnosis . Status post left total hip arthroplasty. 2. Mild congestive heart failure by symptoms. 3. Fall risk. 4. Type 2 diabetes. 5. Chronic kidney disease stage III. 6. Long-term use of anticoagulants. 7. Coronary artery disease. 8. Anemia. . Mild bilateral lower limb edema. 8. Hyperuricemia with no evidence of acute gouty arthritis. . Problems: Brief Hospital Course Allergies Allergies Coded Allergies Type Severity Reaction Last Updated Verified Influenza Virus Vaccines Allergy Intermediate GENERALIZED BODY/JOINT ACHES 10/07 Yes Penicillins Allergy Intermediate NAUSEA/VOMITING 10/07/16 Yes amoxicillin Allergy Intermediate Nausea/Vomiting 10/07/16 Yes cephalexin Allergy Intermediate Nausea/Vomiting 10/07/16 Yes clavulanic acid Allergy Intermediate Nausea/Vomiting 10/07/16 Yes metoclopramide Allergy Intermediate NAUSEA/VOMITING 10/07/16 Yes Vital Signs Vital Signs Date Time Temp Pulse Resp B/P (MAP) Pulse Ox O2 Delivery O2 Flow Rate FiO2 04/07/17 11:41 95 Room Air 04/07/17 08:42 76 149/68 04/07/17 08:15 2.0 04/07/17 05:25 97.9 18 Lab Results Laboratory Tests Test 04/05/17 16:37 04/05/17 18:45 04/06/17 05:57 04/06/17 07:31 Glucose (Fingerstick) 180 mg/dL (70-99) 183 mg/dL (70-99) 112 mg/dL (70-99) White Blood Count 8.9 x10^3/uL (4.0-11.0) Red Blood Count 2.69 x10^6/uL (3.50-5.40) Hemoglobin 7.7 g/dL (12.0-15.5) Hematocrit 23.7 % (36.0-47.0) Mean Corpuscular Volume 88 fL (79-100) Mean Corpuscular Hemoglobin 28 pg (25-35) Mean Corpuscular Hemoglobin Concent 32 g/dL (31-37) Red Cell Distribution Width 15.3 % (11.5-14.5) Platelet Count 266 x10^3/uL (140-400) Erythrocyte Sedimentation Rate 88 (0-25) Sodium Level 143 mmol/L (136-145) Potassium Level 4.1 mmol/L (3.5-5.1) Chloride Level 108 mmol/L (98-107) Carbon Dioxide Level 33 mmol/L (21-32) Anion Gap 2 (6-14) Blood Urea Nitrogen 30 mg/dL (7-20) Creatinine 1.8 mg/dL (0.6-1.0) Estimated GFR (Cockcroft-Gault) 32.3 BUN/Creatinine Ratio 17 (6-20) Glucose Level 126 mg/dL (70-99) Uric Acid 8.4 mg/dL (2.6-6.0) Calcium Level 8.5 mg/dL (8.5-10.1) Total Bilirubin 0.2 mg/dL (0.2-1.0) Aspartate Amino Transf (AST/SGOT) 19 U/L (15-37) Alanine Aminotransferase (ALT/SGPT) 20 U/L (14-59) Alkaline Phosphatase 53 U/L (46-116) C-Reactive Protein 14.9 mg/L (0-3.3) Total Protein 6.1 g/dL (6.4-8.2) Albumin 2.6 g/dL (3.4-5.0) Albumin/Globulin Ratio 0.7 (1.0-1.7) Test 04/06/17 11:34 04/06/17 16:31 04/06/17 19:28 04/07/17 07:57 Glucose (Fingerstick) 215 mg/dL (70-99) 260 mg/dL (70-99) 327 mg/dL (70-99) 104 mg/dL (70-99) Test 04/07/17 11:36 Glucose (Fingerstick) 210 mg/dL (70-99) Brief Hospital Course Ms. Noriega is a 86 old female who was admitted to the Swing Bed unit for rehab after undergoing a left total hip arthroplasty. She did very well with her rehab. She did have and elevated uric acid and did not want to take steroids. I will start her on Allopurinol in a week or so. She is anemic and will have to have that monitored. She received extra diurectic for fluid retention. she was anxious lynette go home and was stable on the day of discharge. PE: tongue moist, throat clear, lungs clear to auscultation. CVRRR, EXT- 1 plus edema. Discharge Information Condition at Discharge: Improved Disposition/Orders: D/C to Home w/ HH Dischare Medications Current Medications Insulin Aspart (NovoLOG) 0-9 UNITS QIDACHS SQ Last administered on 04/05/17 12: 13; Start 03/27/17 at 16:30; Stop 04/05/17 at 12:40; Status DC Dextrose 12.5 gm PRN Q15MIN PRN IV SEE COMMENTS; Start 03/27/17 at 13:45 Acetaminophen (Tylenol) 650 mg PRN Q6HRS PRN PO PAIN Last administered on 20:15; Start 03/27/17 at 13:45 Alprazolam (Xanax) 0.25 mg PRN TID PRN PO ANXIETY / AGITATION Last administered on 04/06/17 20:15; Start 03/27/17 at 13:45 Amlodipine Besylate (Norvasc) 5 mg DAILY PO Last administered on 04/01/17 09: 34; Start 03/28/17 at 09:00; Stop 04/01/17 at 14:54; Status DC Apixaban (Eliquis) 2.5 mg BID PO Last administered on 04/07/17 08:39; Start at 21:00 Atorvastatin Calcium (Lipitor) 10 mg HS PO Last administered on 04/06/17 20:15 ; Start 03/27/17 at 21:00 Furosemide (Lasix) 40 mg DAILY PO Last administered on 04/07/17 08:39; Start at 09:00 Glimepiride (Amaryl) 4 mg DAILY PO Last administered on 04/07/17 08:38; Start 03/28/17 at 09:00 Albuterol/ Ipratropium (Duoneb) 3 ml PRN Q6HRS PRN NEB SHORTNESS OF BREATH; Start 03/27/17 at 13:45; Stop 03/28/17 at 09:12; Status DC Magnesium Oxide (Magnesium Oxide) 400 mg DAILY PO Last administered on 08:41; Start 03/28/17 at 09:00 Meclizine HCl (Antivert) 25 mg PRN TID PRN PO DIZZINESS; Start 03/27/17 at 14: 15 Metoprolol Tartrate (Lopressor) 25 mg BID PO Last administered on 04/07/17 08: 41; Start 03/27/17 at 21:00 Nitroglycerin (Nitrostat) 0.4 mg PRN Q5MIN PRN SL CHEST PAIN Last administered on 04/03/17 09:34; Start 03/27/17 at 13:45 Senna/Docusate Sodium (Senna Plus) 1 tab BID PO Last administered on 04/07/17 08:42; Start 03/27/17 at 21:00 Vitamin D (Vitamin D3) 5,000 unit WEEKLY PO Last administered on 04/04/17 08:40 ; Start 03/28/17 at 09:00 Pantoprazole Sodium (Protonix) 40 mg DAILYAC PO Last administered on 04/07/17 08:38; Start 03/28/17 at 07:30 Insulin Detemir (Levemir) 20 units QHS SQ Last administered on 03/29/17 20:41 ; Start 03/27/17 at 21:00; Stop 03/30/17 at 14:23; Status DC Non-Formulary Medication 1 tab HS PO Last administered on 04/06/17 20:16; Start 03/27/17 at 21:00 Albuterol/ Ipratropium (Duoneb) 3 ml RTQID NEB Last administered on 04/07/17 11 :41; Start 03/28/17 at 12:00 Albuterol/ Ipratropium (Duoneb) 3 ml 1X ONCE NEB Last administered on 09:37; Start 03/28/17 at 09:15; Stop 03/28/17 at 09:16; Status DC Furosemide (Lasix) 40 mg 1X ONCE PO Last administered on 03/29/17 08:03; Start 03/29/17 at 09:00; Stop 03/29/17 at 09:01; Status DC Furosemide (Lasix) 40 mg 1X ONCE PO Last administered on 03/30/17 08:44; Start 03/30/17 at 08:00; Stop 03/30/17 at 08:01; Status DC Insulin Detemir (Levemir) 20 units QHS SQ Last administered on 04/06/17 20:20; Start 03/30/17 at 14:23 Amlodipine Besylate (Norvasc) 10 mg DAILY PO Last administered on 04/07/17 08: 42; Start 04/02/17 at 09:00 Furosemide (Lasix) 40 mg 1X ONCE PO Last administered on 04/05/17 12:59; Start 04/05/17 at 12:45; Stop 04/05/17 at 12:46; Status DC Insulin Aspart (NovoLOG) 0-9 UNITS TIDAC SQ Last administered on 04/07/17 11:41 ; Start 04/05/17 at 16:30 Metolazone (Zaroxolyn) 2.5 mg 3X/WEEK PO ; Start 04/08/17 at 09:00 Active Scripts Active Reported Meclizine Hcl 25 Mg Tablet 1 Tab PO PRN TID Duoneb 0.5-3(2.5) Mg/3 Ml (Albuterol/Ipratropium) 3 Ml Ampul.neb 3 Ml NEB PRN Q6HRS PRN Dexilant (Dexlansoprazole) 60 Mg Cap.mp 1 Cap PO DAILY Atorvastatin Calcium 10 Mg Tablet 1 Tab PO HS Hydrocodone-Apap 5-325 (Hydrocodone Bit/Acetaminophen) 1 Each Tablet 1-2 Tab PO PRN Q4HRS PRN Tylenol (Acetaminophen) 325 Mg Tablet 2 Tab PO PRN Q6HRS PRN Senokot-S Tablet (Sennosides/Docusate Sodium) 1 Each Tablet 1 Tab PO BID Bystolic (Nebivolol Hcl) 5 Mg Tablet 1 Tab PO HS Magnesium Oxide 400 Mg Tablet 1 Tab PO DAILY Glimepiride 4 Mg Tablet 1 Tab PO DAILY Furosemide 40 Mg Tablet 1 Tab PO DAILY Novolog Flexpen (Insulin Aspart) 100 Unit/1 Ml Insuln.pen 0-7 Unit SQ QIDACHS LAST DOSE GIVEN: DATE: 01/01/17 TIME: 2100 NEXT DOSE DUE: DATE: 01/02/17 TIME: 0730 NITROGLYCERIN SubLingual (Nitroglycerin) 0.4 Mg Tab.subl 0.4 Mg SL PRN Q5MIN PRN LAST DOSE GIVEN: DATE: No given in hospital TIME: NEXT DOSE DUE: DATE: as needed for chest pain TIME: Amlodipine Besylate 5 Mg Tablet 5 Mg PO DAILY LAST DOSE GIVEN: DATE: 01/01/17 TIME: 0900 NEXT DOSE DUE: DATE: 01/02/17 TIME: 899 Xanax (Alprazolam) 0.25 Mg Tablet 0.25 Mg PO PRN TID PRN LAST DOSE GIVEN: DATE: 01/01/17 TIME: 2099 NEXT DOSE DUE: DATE: 01/02/17 TIME: 899 Levemir (Insulin Detemir) 100 Unit/1 Ml Vial 20 Unit SQ HS LAST DOSE GIVEN: DATE: 01/01/17 TIME: 2099 NEXT DOSE DUE: DATE: 01/02/17 TIME: 2099 Eliquis (Apixaban) 2.5 Mg Tablet 2.5 Mg PO BID LAST DOSE GIVEN: DATE: 01/01/17 TIME: 2099 NEXT DOSE DUE: DATE: 01/02/17 TIME: 899 Vitamin D (Cholecalciferol (Vitamin D3)) 2,000 Unit Capsule 5,000 Unit PO WEEKLY LAST DOSE GIVEN: DATE: 12/31/16 TIME: 0900 NEXT DOSE DUE: DATE:01/07/17 TIME: 899 Metoprolol Tartrate 25 Mg Tablet 25 Mg PO BID LAST DOSE GIVEN: DATE: 01/01/17 TIME: 2099 NEXT DOSE DUE: DATE: 01/02/17 TIME: 0900 Patient Instructions Patient Instuctions See typwritten instructions on [employer]. WARD ALCANTAR DO Apr 07, 2017 12:29
[2017-04-08] MEDS ORDERED: metOLazone 2.5 MG TABLET PO SCH (09:00)
== END 2017-04-07 14:00 | disposition home health service (06) | DRG 292 ==
LOC: LND 03-27 12:56
PROVIDERS: ADMIT Family Medicine; ATTEND Family Medicine
DX: I13.0 Hypertensive heart and chronic kidney disease with heart failure and stage 1 through stage 4 chronic kidney disease, or unspecified chronic kidney disease (principal); I50.30 Unspecified diastolic (congestive) heart failure; E11.22 Type 2 diabetes mellitus with diabetic chronic kidney disease; I48.0 Paroxysmal atrial fibrillation; D64.9 Anemia, unspecified; I25.10 Atherosclerotic heart disease of native coronary artery without angina pectoris; E79.0 Hyperuricemia without signs of inflammatory arthritis and tophaceous disease; N18.3 Chronic kidney disease, stage 3 (moderate); Z96.643 Presence of artificial hip joint, bilateral; F41.9 Anxiety disorder, unspecified; M19.90 Unspecified osteoarthritis, unspecified site; M79.89 Other specified soft tissue disorders; R70.0 Elevated erythrocyte sedimentation rate; Z96.653 Presence of artificial knee joint, bilateral; Z98.41 Cataract extraction status, right eye; Z79.01 Long term (current) use of anticoagulants; Z79.4 Long term (current) use of insulin; Z79.84 Long term (current) use of oral hypoglycemic drugs; Z79.899 Other long term (current) drug therapy; Z82.3 Family history of stroke; Z82.49 Family history of ischemic heart disease and other diseases of the circulatory system; Z91.81 History of falling; Z83.3 Family history of diabetes mellitus; Z95.0 Presence of cardiac pacemaker; Z95.5 Presence of coronary angioplasty implant and graft; Z98.42 Cataract extraction status, left eye; Z88.0 Allergy status to penicillin; Z88.7 Allergy status to serum and vaccine; Z88.8 Allergy status to other drugs, medicaments and biological substances; Z86.73 Personal history of transient ischemic attack (TIA), and cerebral infarction without residual deficits; Z88.6 Allergy status to analgesic agent; Z88.1 Allergy status to other antibiotic agents
CPT/HCPCS: 36415; 71010; 80048; 80053; 82607; 82728; 82746; 82947; 83036; 83540; 83550; 83735; 83880; 84550; 85025; 85027; 85651; 86140; 94640; 94760; J1815; J7620; 97110; 97116; 97530; 97535

== ENCOUNTER 2017-04-11 16:21 | Inpatient (IN) | payer MEDICARE, OTHER ==
[~2017-04-11] VITALS: Ht 163.8 cm; Wt 85.3 kg
[~2017-04-11 16:21] MED LIST changes: +ACET325T9 PO; +ATOR10TA60 PO; +GLIM4TAB2 PO; -GUAI-107 PO; +GUAI-108 PO; +HYDR-2758 PO; +METO2.5T PO; +NEBI5TAB2 PO; +SENN-37 PO
--- NOTE | 2017-04-11 16:47 | PHYS DOC ---
Past History Past Medical History: A-Fib, Diabetes, Heart Disease, Hypertension Past Surgical History: Appendectomy, Cholecystectomy, Knee Replacement, Pacemaker, Other Alcohol Use: None Drug Use: None Adult General Chief Complaint Chief Complaint: LOWER EXT PAIN HPI HPI 86-year-old female with a history of [place] and congestive heart failure who recently had hip surgery presents emergency department with worsening shortness of breath. She also describes a chest pain that is mild nonradiating a pressure sensation intermittent and without alleviating factors. She denies nausea vomiting or diaphoresis but does have worsening shortness of breath with exertion and is improved with rest. Review of systems is negative for fevers chills nausea vomiting diaphoresis. All other review of systems is negative unless otherwise noted in history of present illness. ED course: 86-year-old female presenting to the emergency department today with shortness of breath and chest pain. EKG obtained which showed paced rhythm with a regular rate. Chest x-ray obtained along with blood work. Patient was saturating well on room air. Pertinent physical examination findings showed mild pulmonary crackles on inspiration and expiration with 2+ edema in the legs. Otherwise abdomen is soft and nontender. The patient was then admitted to the hospital for further evaluation workup and care. Likely CHF exacerbation. Review of Systems Review of Systems see above Allergies Allergies Allergies Coded Allergies Type Severity Reaction Last Updated Verified Influenza Virus Vaccines Allergy Intermediate GENERALIZED BODY/JOINT ACHES 10/07 Yes Penicillins Allergy Intermediate NAUSEA/VOMITING 10/07/16 Yes amoxicillin Allergy Intermediate Nausea/Vomiting 10/07/16 Yes cephalexin Allergy Intermediate Nausea/Vomiting 10/07/16 Yes clavulanic acid Allergy Intermediate Nausea/Vomiting 10/07/16 Yes metoclopramide Allergy Intermediate NAUSEA/VOMITING 10/07/16 Yes Physical Exam Physical Exam See above Constitutional: Well developed, well nourished, no acute distress, non-toxic appearance. [] HENT: Normocephalic, atraumatic, bilateral external ears normal, oropharynx moist, no oral exudates, nose normal. [] Eyes: PERRLA, EOMI, conjunctiva normal, no discharge. [] Neck: Normal range of motion, no tenderness, supple, no stridor. [] Cardiovascular:Heart rate regular rhythm, no murmur [] Lungs & Thorax: See above Abdomen: Bowel sounds normal, soft, no tenderness, no masses, no pulsatile masses. [] Skin: Warm, dry, no erythema, no rash. [] Back: No tenderness, no CVA tenderness. [] Extremities: No tenderness, no cyanosis, no clubbing, ROM intact, See above Neurologic: Alert and oriented X 3, normal motor function, normal sensory function, no focal deficits noted. [] Psychologic: Affect normal, judgement normal, mood normal. [] EKG EKG See above[] Radiology/Procedures Radiology/Procedures [] Course & Med Decision Making Course & Med Decision Making Pertinent Labs and Imaging studies reviewed. (See chart for details) [] Dragon Disclaimer Dragon Disclaimer This chart was dictated in whole or in part using Voice Recognition software in a busy, high-work load, and often noisy Emergency Department environment. It may contain unintended and wholly unrecognized errors or omissions. Departure Departure: Impression: Primary Impression: CHF (congestive heart failure) Additional Impressions: Weakness Shortness of breath Disposition: ADMITTED INPATIENT Admitting Physician: Veronica Blair Condition: STABLE Referrals: PATRICIA COOPER MD (PCP) Problem Qualifiers KIRILL FARRIS MD Apr 11, 2017 16:47
[2017-04-11] MEDS ORDERED: MORPHINE SULFATE 2 MG/ML DISP.SYRIN. IV PRN (17:15)
[2017-04-11] MEDS ORDERED: ONDANSETRON PF 4 MG/2 ML VIAL. IV PRN (17:15)
--- NOTE | 2017-04-11 17:22 | EKG ---
[address] [address] Test Date: 2017-04-11 Test Time: 16:39:47 Pat Name: CARINA TREADWELL Department: Room: Gender: F Clinical Sales Consultant: : [id number] Requested By: KIRILL FARRIS Order Number: [id number] Reading MD: Indra Waller Measurements Intervals [place] Rate: 97 P: SD: QRS: -72 QRSD: 194 T: 94 QT: 404 QTc: 518 Interpretive Statements V-PACED Electronically Signed On 04-13-2017 9:56:16 CDT by Indra Waller
[2017-04-11 17:26] LABS: DIRECT BILIRUBIN 0.1 mg/dL (0.0-0.2)
[2017-04-11 17:38] LABS: BASO # 0.1 x10^3/uL (0.0-0.2); BASO % 1 % (0-3); EOS # 0.4 x10^3/uL (0.0-0.7); EOS % 5 % (0-3); HEMATOCRIT 27.6 % (36.0-47.0); LYMPH % 22 % (24-48); MEAN CORPUSCULAR HEMOGLOBIN 29 pg (25-35); MEAN CORPUSCULAR HGB CONC 33 g/dL (31-37); MEAN CORPUSCULAR VOLUME 88 fL (79-100); MONO # 0.5 x10^3/uL (0.0-1.1); MONO % 6 % (0-9); NEUT # 5.8 x10^3uL (1.8-7.7); NEUT % 66 % (31-73); PLATELET COUNT 266 x10^3/uL (140-400); RED BLOOD COUNT 3.15 x10^6/uL (3.50-5.40); RED CELL DISTRIBUTION WIDTH 15.1 % (11.5-14.5); WHITE BLOOD COUNT 8.8 x10^3/uL (4.0-11.0)
[2017-04-11] MEDS ORDERED: ASPIRIN 81 MG TAB.CHEW PO ONE (18:00)
--- NOTE | 2017-04-11 18:23 | NUR ---
The patient, CARINA TREADWELL, 86 y/o, F admitted by WARD ALCANTAR DO, was given written information regarding hospital policies, unit procedures and contact persons. Valuables were checked and the patient was made comfortable by staff.
[2017-04-11 18:29] LABS: HEMOGLOBIN ISTAT 8.5 gm/dL; POTASSIUM ISTAT 4.4 mmol/L (3.5-5.0)
[2017-04-11] MEDS ORDERED: DEXTROSE 50% 25 GM / 50ML DISP.SYRIN. IV PRN (18:45)
[2017-04-11] MEDS ORDERED: MECLIZINE 12.5 MG TABLET. PO PRN (18:45)
[2017-04-11] MEDS ORDERED: NITROGLYCERIN SUBLINGUAL 0.4 MG BOTTLE OF 25. SL PRN (18:45)
[2017-04-11] MEDS ORDERED: ALBUTEROL SULFATE 2.5 MG/3 ML NEBU. NEB PRN (19:00)
[2017-04-11 19:07] LABS: BILIRUBIN,URINE NEG (NEG); CLARITY,URINE HAZY; COLOR,URINE YELLOW; GLUCOSE,URINE NEG (NEG); NITRITE,URINE NEG (NEG); UROBILINOGEN,URINE 0.2 mg/dL (0.2 mg/dL)
[2017-04-11 19:08] LABS: BACTERIA,URINE FEW /HPF (0-FEW); SQUAMOUS EPITHELIAL CELL,UR MANY /LPF
[2017-04-11] MEDS ORDERED: FUROSEMIDE 40 MG/4 ML VIAL IVP ONE (19:15)
[2017-04-11 19:30] VITALS: BP 148/59
[2017-04-11 21:28] LABS: ALBUMIN 3.1 g/dL (3.4-5.0); TOTAL BILIRUBIN 0.2 mg/dL (0.2-1.0)
[2017-04-11] MEDS: SENNOSIDES/DOCUSATE 8.6/50MG TABLET. PO SCH (21:36)
[2017-04-11] MEDS: ATORVASTATIN CALCIUM 10 MG TABLET. PO SCH (21:36)
[2017-04-11] MEDS: ACETAMINOPHEN 325 MG TABLET PO PRN (21:36)
[2017-04-11] MEDS: METOPROLOL TART IMMED RELEASE 25 MG TABLET PO SCH (21:37)
[2017-04-11 21:38] LABS: TOTAL PROTEIN 6.7 g/dL (6.4-8.2)
[2017-04-11] MEDS: INSULIN DETEMIR 300 UNITS/3 ML INSULN.PEN. SQ SCH (21:38)
[2017-04-11] MEDS: INSULIN ASPART 300 UNITS/3 ML INSULN.PEN SQ SCH (21:40)
[2017-04-11] MEDS: APIXABAN 2.5 MG TABLET PO SCH (21:40)
[2017-04-11] MEDS: ALPRAZolam 0.25 MG TABLET PO PRN (21:41)
--- NOTE | 2017-04-11 21:57 | RAD ---
Bilateral lower extremity venous Doppler ultrasound Indication: 2 weeks right hip replacement. Right hip pain and swelling. Technique: Color Doppler, grayscale, duplex, spectral waveform analysis is used to evaluate the bilateral lower extremity deep venous system, including the common femoral vein, superficial femoral vein, popliteal vein, tibioperoneal trunk and calf veins. Findings: As per the technologist, there were technical difficulties with the scan resulting in limited detail. The right and left common femoral vein, deep femoral vein, greater saphenous vein proximal to mid superficial femoral vein and popliteal vein appear patent bilaterally. The distal right and left superficial femoral vein could not be adequately visualized on either side for diagnosis. Similarly, the calf veins could not be adequately visualized for diagnosis. IMPRESSION: Technically limited examination. No definite right or left deep venous thrombosis, but note that the distal right and left superficial femoral veins, and the bilateral calf veins, are in particular poorly seen. Electronically signed by: Madan Rodriguez MD (04/11/2017 9:54 PM) [facility]
[2017-04-11 22:30] VITALS: BP 131/64
[2017-04-12] MEDS: ACETAMINOPHEN 325 MG TABLET PO PRN ×2 (05:40→20:20)
[2017-04-12 05:46] VITALS: BP 113/61
[2017-04-12 06:58] LABS: BASO # 0.1 x10^3/uL (0.0-0.2); BASO % 1 % (0-3); EOS # 0.3 x10^3/uL (0.0-0.7); EOS % 6 % (0-3); HEMATOCRIT 23.4 % (36.0-47.0); HEMOGLOBIN 7.7 g/dL (12.0-15.5); LYMPH # 1.5 x10^3/uL (1.0-4.8); LYMPH % 25 % (24-48); MEAN CORPUSCULAR HEMOGLOBIN 29 pg (25-35); MEAN CORPUSCULAR HGB CONC 33 g/dL (31-37); MEAN CORPUSCULAR VOLUME 88 fL (79-100); MONO # 0.4 x10^3/uL (0.0-1.1); MONO % 7 % (0-9); NEUT # 3.7 x10^3uL (1.8-7.7); NEUT % 62 % (31-73); PLATELET COUNT 202 x10^3/uL (140-400); RED BLOOD COUNT 2.67 x10^6/uL (3.50-5.40); RED CELL DISTRIBUTION WIDTH 15.4 % (11.5-14.5)
[2017-04-12] MEDS: MAGNESIUM OXIDE 400 MG TABLET PO SCH (08:00)
[2017-04-12] MEDS: GLIMEPIRIDE 4 MG TABLET PO SCH (08:00)
[2017-04-12] MEDS: SENNOSIDES/DOCUSATE 8.6/50MG TABLET. PO SCH ×2 (08:01→20:19)
[2017-04-12] MEDS: APIXABAN 2.5 MG TABLET PO SCH ×2 (08:01→20:20)
[2017-04-12] MEDS: ALLOPURINOL 100 MG TABLET. PO SCH (08:01)
[2017-04-12] MEDS: FUROSEMIDE 40 MG TABLET PO SCH (08:01)
[2017-04-12] MEDS: PANTOPRAZOLE 40 MG TABLET. PO SCH (08:01)
[2017-04-12] MEDS: METOPROLOL TART IMMED RELEASE 25 MG TABLET PO SCH ×2 (08:02→20:20)
[2017-04-12] MEDS: amLODIPine BESYLATE 10 MG TABLET PO SCH (08:03)
--- NOTE | 2017-04-12 08:17 | RAD ---
Portable chest, 04/11/2017: History: Chest pain Comparison is made to a study from 03/28/2017. A left-sided transvenous pacemaker remains in place with active an active leads extending into the right heart. The heart size and pulmonary vascularity are normal. There is calcific plaquing of the aorta. No pulmonary infiltrates are seen. There is no evidence of pleural fluid. A surgical plate and screws is evident in the lower cervical spine. There are moderate scattered degenerative changes in the spine and at both shoulders. IMPRESSION: No acute cardiopulmonary abnormality is detected.
[2017-04-12 08:18] LABS: CALCIUM 8.5 mg/dL (8.5-10.1); GFR 28.6; POTASSIUM 4.3 mmol/L (3.5-5.1)
[2017-04-12] MEDS ORDERED: METOPROLOL TART IMMED RELEASE 25 MG TABLET PO SCH (09:00)
[2017-04-12] MEDS: INSULIN ASPART 300 UNITS/3 ML INSULN.PEN SQ SCH ×4 (09:08→20:24)
--- NOTE | 2017-04-12 09:08 | RAD ---
Ventilation/perfusion lung scan, 04/12/2017: History: Chest pain, shortness of breath, elevated d-dimer The ventilation study was performed utilizing 12.5 mCi of xenon-133. Activity in the lungs is mildly heterogeneous, probably related to patient size. There is decreased activity in the left lower chest due to the enlarged heart. There is minimal retention of activity in the lungs on the washout phase. Perfusion imaging was performed utilizing 5.5 mCi of technetium 99m MAA. A similar pattern of activity is seen. No segmental or unmatched perfusion defects are seen. IMPRESSION: There are no VQ findings to suggest pulmonary .
[2017-04-12] MEDS ORDERED: IPRATRPIUM/ALBUTEROL 0.5/2.5MG 3 ML NEBU. NEB ONE (09:45)
[2017-04-12] MEDS ORDERED: methylPREDNISolone SOD SUCC PF 40 MG/ML VIAL. IV ONE (10:00)
[2017-04-12 11:00] VITALS: BP 129/72
[2017-04-12 15:00] VITALS: BP 149/56
[2017-04-12] MEDS: IPRATRPIUM/ALBUTEROL 0.5/2.5MG 3 ML NEBU. NEB SCH ×2 (16:23→20:28)
[2017-04-12 19:58] VITALS: BP 160/68
--- NOTE | 2017-04-12 20:05 | NUR ---
Patient assessed, care plan reviewed, continue to monitor.
[2017-04-12] MEDS: ALPRAZolam 0.25 MG TABLET PO PRN (20:19)
[2017-04-12] MEDS: ATORVASTATIN CALCIUM 10 MG TABLET. PO SCH (20:21)
--- NOTE | 2017-04-12 20:24 | HP ---
ADMIT DATE: 04/12/2017 REASON FOR ADMISSION: Shortness of breath, chest pressure, weight gain. HISTORY OF PRESENT ILLNESS: This is an 86-year-old female, who was just discharged from the swing bed where she was undergoing rehab for left total hip arthroplasty. She went back home and physical therapist saw her yesterday and it appeared that she had gained like 9 pounds and she was feeling short of breath and had some central chest pain and so was admitted. PAST MEDICAL HISTORY: 1.Status post left total hip arthroplasty. 2.Congestive heart failure. 3.Fall risk. 4.Type 2 diabetes. 5.Chronic kidney disease stage 3. 6.Long-term use of anticoagulants. 7.Coronary artery disease. 8.Anemia. 9.Hyperuricemia. MEDICATIONS: Reviewed. ALLERGIES: INFLUENZA VIRUS VACCINE, PENICILLIN, AMOXICILLIN, CEPHALEXIN, CLAVULANIC ACID, METOCLOPRAMIDE. HABITS: Nonsmoker, nondrinker. Most of this information is available on multiple other history and physicals. REVIEW OF SYSTEMS: Positive for some central chest pain and some shortness of breath and right leg swelling. OBJECTIVE: VITAL SIGNS: Blood pressure 129/72, pulse 81, respirations 18, O2 sat is 98% on room air. Height 64-1/2 inches, weight was . GENERAL: She is alert and oriented. HEENT: Her eyes were clear. Her tongue was moist. NECK: Supple. LUNGS: With diffuse wheezes. CARDIOVASCULAR: Regular rhythm and rate. ABDOMEN: Soft, nontender. EXTREMITIES: Right leg is completely swollen with edema, left leg slightly edematous. LABORATORY DATA: D-dimer was 2.09. CBC: Hemoglobin is 7.7, hematocrit 23.4. Urinalysis 5 to 10 white cells, trace leukocyte esterase. Chest x-ray negative. V/Q scan negative for PE. Doppler is negative for DVT. Chest x-ray does not show any evidence of congestive heart failure. ASSESSMENT: 1. Mild exacerbation of chronic obstructive pulmonary disease. 2. Lower extremity swelling. 3. Weight gain. 4. Coronary artery disease. 5. Frequent bouts of congestive heart failure. 6. Long-term use of anticoagulants. 7. Elevated D-dimer, pulmonary embolism and DVT negative. PLAN: Gave her a small dose of Lasix and a low dose of Solu-Medrol, started her on breathing treatments. She should be able to be discharged tomorrow and her metolazone was increased to 3 times a day. She had been discharged on twice a day, otherwise doing well. Her BNP was 2307, it was over 6000 at the last visit. Her troponin was negative. WARD ALCANTAR DO DR: CHANG/deepak JOB#: [id number] / [id number]
[2017-04-12] MEDS: INSULIN DETEMIR 300 UNITS/3 ML INSULN.PEN. SQ SCH (20:25)
[2017-04-13 04:30] VITALS: BP_SYST 147; BP_DIAS 65; BP_DIAS 68
[2017-04-13 07:53] VITALS: BP 142/67
[2017-04-13] MEDS: MAGNESIUM OXIDE 400 MG TABLET PO SCH (07:59)
[2017-04-13] MEDS: APIXABAN 2.5 MG TABLET PO SCH ×2 (08:02→20:53)
[2017-04-13] MEDS: METOPROLOL TART IMMED RELEASE 25 MG TABLET PO SCH ×2 (08:02→20:54)
[2017-04-13] MEDS: amLODIPine BESYLATE 10 MG TABLET PO SCH (08:02)
[2017-04-13] MEDS: GLIMEPIRIDE 4 MG TABLET PO SCH (08:03)
[2017-04-13] MEDS: PANTOPRAZOLE 40 MG TABLET. PO SCH (08:03)
[2017-04-13] MEDS: metOLazone 2.5 MG TABLET PO SCH (08:03)
[2017-04-13] MEDS: FUROSEMIDE 40 MG TABLET PO SCH (08:03)
[2017-04-13] MEDS: SENNOSIDES/DOCUSATE 8.6/50MG TABLET. PO SCH ×2 (08:03→20:53)
[2017-04-13] MEDS: ALLOPURINOL 100 MG TABLET. PO SCH (08:03)
[2017-04-13] MEDS: INSULIN ASPART 300 UNITS/3 ML INSULN.PEN SQ SCH ×4 (08:07→21:19)
[2017-04-13] MEDS: IPRATRPIUM/ALBUTEROL 0.5/2.5MG 3 ML NEBU. NEB SCH ×3 (09:00→20:34)
--- NOTE | 2017-04-13 10:46 | NUR ---
Pt resting in chair at this time, independent with transfers using walker for assistance. Pt does become SOA after walking, vital signs remain stable. Pt states she continues to have these issues. Will notify cardiology and hospitalist of concerns.
[2017-04-13 11:11] VITALS: BP 123/61
[2017-04-13 13:30] LABS: HEMATOCRIT 26.7 % (36.0-47.0); HEMOGLOBIN 8.7 g/dL (12.0-15.5); RED BLOOD COUNT 3.06 x10^6/uL (3.50-5.40); RED CELL DISTRIBUTION WIDTH 15.3 % (11.5-14.5); WHITE BLOOD COUNT 11.2 x10^3/uL (4.0-11.0)
[2017-04-13 13:33] LABS: CALCIUM 9.2 mg/dL (8.5-10.1); CREATININE 1.9 mg/dL (0.6-1.0); GFR 30.3; POTASSIUM 4.3 mmol/L (3.5-5.1)
[2017-04-13 14:43] VITALS: BP 135/68
--- NOTE | 2017-04-13 15:10 | RAD ---
CT of the chest, abdomen and pelvis without contrast, 04/13/2017: History: Shortness of breath, chest pain, epigastric pain Noncontrast scans were obtained as requested. Transvenous pacing leads extend into the right heart. There are moderate coronary artery calcifications. There is calcific plaquing of the thoracic aorta without evidence of aneurysm. No mediastinal hemorrhage or adenopathy is seen. No pulmonary infiltrate is present. There is no evidence of pleural fluid or pneumothorax. The unopacified liver is unremarkable. The gallbladder is surgically absent. No pancreatic abnormality is detected. The spleen is of normal size. The unopacified kidneys demonstrate a couple of small cysts. There is moderate bilateral renal cortical scarring. The kidneys show no evidence of obstruction. Moderate aortoiliac calcific plaquing is present without evidence of aneurysm. Artifacts arising from bilateral hip prostheses degrade image quality in the lower pelvis. There are small uterine calcifications. No abdominal or pelvic adenopathy is seen. The bowel loops are not dilated. No free air or significant free fluid is identified in the abdomen. Moderate multilevel degenerative changes are present in the spine, most severe in the lower lumbar region. IMPRESSION: 1. Calcific plaquing of the aorta and coronary arteries. 2. Moderate bilateral renal scarring with small renal cysts. 3. No acute abnormality is identified in the chest, abdomen or pelvis. PQRS Compliance Statement: One or more of the following individualized dose reduction techniques were utilized for this examination: 1. Automated exposure control 2. Adjustment of the mA and/or kV according to patient size 3. Use of iterative reconstruction technique
[2017-04-13 18:25] VITALS: BP 136/75
[2017-04-13 20:00] VITALS: BP 119/60
--- NOTE | 2017-04-13 20:00 | NUR ---
resumed care of pt. reviewed poc with pt, pt verbalized understanding of poc. discussed chf, soa, and how we will make her comfortable (position robles ) for her to be able to sleep tonight. Pt does state she gets anxious and becomes more sob.
[2017-04-13] MEDS: ATORVASTATIN CALCIUM 10 MG TABLET. PO SCH (20:53)
[2017-04-13] MEDS: INSULIN DETEMIR 300 UNITS/3 ML INSULN.PEN. SQ SCH (21:19)
[2017-04-13] MEDS: ALPRAZolam 0.25 MG TABLET PO PRN (22:31)
[2017-04-14 00:01] VITALS: BP 124/68
--- NOTE | 2017-04-14 02:13 | PN ---
DATE: 04/13/2017 SUBJECTIVE: The patient is sitting in her recliner, continued to complain of shortness of breath on exertion, also chest pain that goes through to the back. She also complained of orthopnea and paroxysmal nocturnal dyspnea and swelling of her legs, but denied any chills, rigors or fever. Denied any cough, phlegm or hemoptysis. When I examined her, she was clearly very anxious, emotional and crying, stating that she is depressed and she is unable to walk without becoming very short of breath. PHYSICAL EXAMINATION: GENERAL: However, when I examined her, she looked pale, but no jaundice, cyanosis or thyromegaly. No jugular venous distension. No limb edema. VITAL SIGNS: Her heart rate was 68, blood pressure 123/61, temperature was 97, respiratory rate was 20, and oxygen saturation was 99% on 2 liters of oxygen. HEAD, EYES, EARS, NOSE AND THROAT: Showed normocephalic, atraumatic. NECK: Supple. HEART: Showed normal first and second heart sounds with no gallop, rub or murmur. CHEST: Clear to auscultation. Chest shows central trachea, equally reduced expansion, reduced air entry, vesicular sounds. I could not really appreciate any crepitation or rhonchi. ABDOMEN: Distended, soft, nontender. NEUROLOGIC: She was awake, alert, responding appropriately. Cranial nerves intact. She moves extremities without difficulty. Her intake over the last 24 hours was 560, output was 775. LABORATORY DATA: As of yesterday showed a serum sodium 142, potassium 4.3, chloride 106, bicarbonate 28, anion gap of 8, BUN of 36, creatinine 2. Estimated GFR was 28 mL per minute. Her glucose was 116. Calcium was 8.5. His white cell count was 6000, hemoglobin 7.7, hematocrit 23.4, MCV 88 and platelet count of 222,000 with normal manual differential. She apparently has had a V/Q scan because of elevated D-dimer, which showed no V/Q scan findings to suggest pulmonary embolism. Venous Doppler ultrasound of both lower extremities showed no definite right or left deep vein thrombosis, but the distal right and left superficial femoral veins and bilateral calf veins are in particular poorly seen. Her chest x-ray showed that the left-sided transverse pacemaker remains in place with active leads extending into the right heart to heart size and pulmonary vascularity are normal. There is calcific plaquing of the aorta. No pulmonary infiltrates are seen. There is no evidence of pleural fluid. The surgical plates and screws are evident in the lower cervical spine. There are moderate scattered degenerative changes in the spine and at both shoulders. ASSESSMENT: This is an 86-year-old -[place] female patient, who was admitted with: 1. Increasing shortness of breath on exertion. 2. Status post left total hip arthroplasty. 3. She is known to have congestive heart failure. 4. Type 2 diabetes mellitus. 5. Chronic kidney disease stage 3, labile hypertension, anemia as well as hyperuricemia. PLAN: My plan is to consult the cardiology team, do 2 more sets of cardiac enzyme and perhaps change her IV Lasix to be given intravenously and decide on further management accordingly. JAMES MULTANI MD DR: ESTEPHANIA/deepak JOB#: [id number] / [id number]
[2017-04-14 05:00] VITALS: BP 138/66
[2017-04-14 06:27] VITALS: BP 138/66
[2017-04-14 06:37] LABS: BASO # 0.1 x10^3/uL (0.0-0.2); BASO % 1 % (0-3); EOS # 0.2 x10^3/uL (0.0-0.7); EOS % 3 % (0-3); HEMATOCRIT 24.5 % (36.0-47.0); HEMOGLOBIN 7.9 g/dL (12.0-15.5); LYMPH # 2.2 x10^3/uL (1.0-4.8); LYMPH % 29 % (24-48); MEAN CORPUSCULAR HEMOGLOBIN 29 pg (25-35); MEAN CORPUSCULAR HGB CONC 32 g/dL (31-37); MEAN CORPUSCULAR VOLUME 88 fL (79-100); MONO # 0.6 x10^3/uL (0.0-1.1); MONO % 8 % (0-9); NEUT # 4.6 x10^3uL (1.8-7.7); NEUT % 61 % (31-73); PLATELET COUNT 216 x10^3/uL (140-400); RED BLOOD COUNT 2.79 x10^6/uL (3.50-5.40); RED CELL DISTRIBUTION WIDTH 15.2 % (11.5-14.5); WHITE BLOOD COUNT 7.6 x10^3/uL (4.0-11.0)
[2017-04-14 06:58] LABS: ALBUMIN/GLOBULIN RATIO 0.9 (1.0-1.7); CALCIUM 8.8 mg/dL (8.5-10.1); CREATININE 1.9 mg/dL (0.6-1.0); GFR 30.3; MAGNESIUM 2.1 mg/dL (1.8-2.4); POTASSIUM 3.9 mmol/L (3.5-5.1); TOTAL BILIRUBIN 0.3 mg/dL (0.2-1.0); TOTAL PROTEIN 6.3 g/dL (6.4-8.2)
[2017-04-14] MEDS: INSULIN ASPART 300 UNITS/3 ML INSULN.PEN SQ SCH ×4 (07:30→21:00)
[2017-04-14] MEDS ORDERED: methylPREDNISolone 4 MG TABLET. PO SCH ×2 (09:00→12:30)
--- NOTE | 2017-04-14 09:03 | PDOC ---
GABINO SULLIVAN TELEVISION NEWS ANCHOR 04/14/17 0903: PROGRESS NOTES Diagnosis Problem Problems Medical Problems: (1) Chest pain Status: Acute (2) CHF (congestive heart failure) Status: Acute (3) Shortness of breath Status: Acute Assessment Full consult was dictated 04/13/[address] Canela. Not available on chart yet. We are seeing the patient for congestive heart failure 1. Congestive heart failure, acute on chronic diastolic. She is feeling much better this morning after 2000cc of urine out last night. On Lasix/Metolozone and beta juarez. Not on NICHOLE/ARB due to chronic kidney disease. Continue IV lasix one more day and check labs in the am. 2. CAD - Chest tightness improved with diuresing. GA has been ruled out. Continue medical therapy. 3. HTN - Controlled, continue current medications 4. HLD - Continue statin therapy Problems: Subjective Breathing has improved, continues to have mild orthopnea. 2 pillows with HOB up 30 degrees. SOA when getting up to chair but at rest breathing is good. Constant tightness sensation has improved and denies palpitations. Slept better last night. Objective Vital Signs Date Time Temp Pulse Resp B/P (MAP) Pulse Ox O2 Delivery O2 Flow Rate FiO2 04/14/17 05:00 98.2 68 20 138/66 (90) 98 Room Air 04/13/17 20:34 2.0 Abdomen: Normal bowel sounds, Soft, No tenderness Heart: Regular rate, Normal S1, Normal S2, No murmurs Extremities: Other (right +1 left trace) General: Alert, Oriented X3 HEENT: EOMI, Mucous membr. moist/pink Lungs: Clear to auscultation Psych/Mental Status: Mental status NL, Mood NL Review of Relevant I have reviewed the following items alisha (where applicable) has been applied. Labs Laboratory Tests Test 04/12/17 11:39 04/12/17 16:51 04/12/17 20:09 04/13/17 07:32 Glucose (Fingerstick) 200 mg/dL (70-99) 243 mg/dL (70-99) 346 mg/dL (70-99) 237 mg/dL (70-99) Test 04/13/17 11:35 04/13/17 13:17 04/13/17 16:25 04/13/17 20:57 Glucose (Fingerstick) 223 mg/dL (70-99) 233 mg/dL (70-99) 217 mg/dL (70-99) White Blood Count 11.2 x10^3/uL (4.0-11.0) Red Blood Count 3.06 x10^6/uL (3.50-5.40) Hemoglobin 8.7 g/dL (12.0-15.5) Hematocrit 26.7 % (36.0-47.0) Mean Corpuscular Volume 87 fL (79-100) Mean Corpuscular Hemoglobin 29 pg (25-35) Mean Corpuscular Hemoglobin Concent 33 g/dL (31-37) Red Cell Distribution Width 15.3 % (11.5-14.5) Platelet Count 255 x10^3/uL (140-400) Sodium Level 139 mmol/L (136-145) Potassium Level 4.3 mmol/L (3.5-5.1) Chloride Level 103 mmol/L (98-107) Carbon Dioxide Level 29 mmol/L (21-32) Anion Gap 7 (6-14) Blood Urea Nitrogen 42 mg/dL (7-20) Creatinine 1.9 mg/dL (0.6-1.0) Estimated GFR (Cockcroft-Gault) 30.3 Glucose Level 210 mg/dL (70-99) Calcium Level 9.2 mg/dL (8.5-10.1) Troponin I Quantitative < 0.017 ng/mL (0-0.055) Lipase 56 U/L (73-393) Test 04/14/17 05:50 White Blood Count 7.6 x10^3/uL (4.0-11.0) Red Blood Count 2.79 x10^6/uL (3.50-5.40) Hemoglobin 7.9 g/dL (12.0-15.5) Hematocrit 24.5 % (36.0-47.0) Mean Corpuscular Volume 88 fL (79-100) Mean Corpuscular Hemoglobin 29 pg (25-35) Mean Corpuscular Hemoglobin Concent 32 g/dL (31-37) Red Cell Distribution Width 15.2 % (11.5-14.5) Platelet Count 216 x10^3/uL (140-400) Neutrophils (%) (Auto) 61 % (31-73) Lymphocytes (%) (Auto) 29 % (24-48) Monocytes (%) (Auto) 8 % (0-9) Eosinophils (%) (Auto) 3 % (0-3) Basophils (%) (Auto) 1 % (0-3) Neutrophils # (Auto) 4.6 x10^3uL (1.8-7.7) Lymphocytes # (Auto) 2.2 x10^3/uL (1.0-4.8) Monocytes # (Auto) 0.6 x10^3/uL (0.0-1.1) Eosinophils # (Auto) 0.2 x10^3/uL (0.0-0.7) Basophils # (Auto) 0.1 x10^3/uL (0.0-0.2) Sodium Level 143 mmol/L (136-145) Potassium Level 3.9 mmol/L (3.5-5.1) Chloride Level 107 mmol/L (98-107) Carbon Dioxide Level 29 mmol/L (21-32) Anion Gap 7 (6-14) Blood Urea Nitrogen 42 mg/dL (7-20) Creatinine 1.9 mg/dL (0.6-1.0) Estimated GFR (Cockcroft-Gault) 30.3 BUN/Creatinine Ratio 22 (6-20) Glucose Level 99 mg/dL (70-99) Calcium Level 8.8 mg/dL (8.5-10.1) Magnesium Level 2.1 mg/dL (1.8-2.4) Total Bilirubin 0.3 mg/dL (0.2-1.0) Aspartate Amino Transf (AST/SGOT) 17 U/L (15-37) Alanine Aminotransferase (ALT/SGPT) 20 U/L (14-59) Alkaline Phosphatase 55 U/L (46-116) Total Protein 6.3 g/dL (6.4-8.2) Albumin 3.0 g/dL (3.4-5.0) Albumin/Globulin Ratio 0.9 (1.0-1.7) Microbiology 04/11/17 Urine Culture - Final, Complete 04/11/17 Urine Culture Result 1 (CLAUDIO) - Final, Complete Medications Current Medications Ondansetron HCl (Zofran) 4 mg PRN Q4HRS PRN IV NAUSEA/VOMITING; Start 04/11/17 at 17:15; Stop 04/12/17 at 17:14; Status DC Morphine Sulfate (Morphine 2mg Syringe) 2 mg PRN Q2HR PRN IV PAIN; Start at 17:15; Stop 04/11/17 at 18:33; Status DC Aspirin (Children'S Aspirin) 324 mg 1X ONCE PO Last administered on 04/11/17 17:40; Start 04/11/17 at 18:00; Stop 04/11/17 at 18:02; Status DC Furosemide (Lasix) 40 mg 1X ONCE IVP Last administered on 04/11/17 21:33; Start 04/11/17 at 19:15; Stop 04/11/17 at 19:16; Status DC Acetaminophen (Tylenol) 650 mg PRN Q6HRS PRN PO PAIN Last administered on 20:20; Start 04/11/17 at 18:45 Allopurinol (Zyloprim) 100 mg DAILY PO Last administered on 04/13/17 08:03; Start 04/12/17 at 09:00 Alprazolam (Xanax) 0.25 mg PRN TID PRN PO ANXIETY / AGITATION Last administered on 04/13/17 22:31; Start 04/11/17 at 18:45 Amlodipine Besylate (Norvasc) 10 mg DAILY PO Last administered on 04/13/17 08: 02; Start 04/12/17 at 09:00 Apixaban (Eliquis) 2.5 mg BID PO Last administered on 04/13/17 20:53; Start at 21:00 Atorvastatin Calcium (Lipitor) 10 mg HS PO Last administered on 04/13/17 20:53 ; Start 04/11/17 at 21:00 Furosemide (Lasix) 40 mg DAILY PO Last administered on 04/13/17 08:03; Start 04/12/17 at 09:00; Stop 04/13/17 at 13:13; Status DC Glimepiride (Amaryl) 4 mg DAILY PO Last administered on 04/13/17 08:03; Start 04/12/17 at 09:00 Albuterol Sulfate (Ventolin) 2.5 mg PRN Q6HRS PRN NEB SOA; Start 04/11/17 at 19: 00 Magnesium Oxide (Magnesium Oxide) 400 mg DAILY PO Last administered on 07:59; Start 04/12/17 at 09:00 Meclizine HCl (Antivert) 25 mg PRN TID PRN PO DIZZINESS Last administered on 21:40; Start 04/11/17 at 18:45 Metolazone (Zaroxolyn) 2.5 mg 3X/WEEK PO Last administered on 04/13/17 08:03; Start 04/13/17 at 09:00 Metoprolol Tartrate (Lopressor) 25 mg BID PO Last administered on 04/13/17 20: 54; Start 04/11/17 at 21:00 Nitroglycerin (Nitrostat) 0.4 mg PRN Q5MIN PRN SL CHEST PAIN; Start 04/11/17 at 18:45 Senna/Docusate Sodium (Senna Plus) 1 tab BID PO Last administered on 04/13/17 20:53; Start 04/11/17 at 21:00 Vitamin D (Vitamin D3) 5,000 unit WEEKLY PO ; Start 04/18/17 at 09:00 Pantoprazole Sodium (Protonix) 40 mg DAILYAC PO Last administered on 04/13/17 08:03; Start 04/12/17 at 07:30 Insulin Detemir (Levemir) 20 units QHS SQ Last administered on 04/13/17 21:19 ; Start 04/11/17 at 21:00 Metoprolol Tartrate (Lopressor) 25 mg BID PO ; Start 04/12/17 at 09:00; Stop 05/19 at 09:00; Status DC Insulin Aspart (NovoLOG) 0-7 UNITS QIDACHS SQ Last administered on 04/13/17 21 :19; Start 04/11/17 at 21:00 Dextrose 12.5 gm PRN Q15MIN PRN IV SEE COMMENTS; Start 04/11/17 at 18:45 Albuterol/ Ipratropium (Duoneb) 3 ml 1X ONCE NEB Last administered on 09:59; Start 04/12/17 at 09:45; Stop 04/12/17 at 09:46; Status DC Albuterol/ Ipratropium (Duoneb) 3 ml [id number] NEB Last administered on 04/13/17t 20:34; Start 04/12/17 at 16:00 Methylprednisolone Sodium Succinate (SOLU-Medrol 40MG VIAL) 30 mg 1X ONCE IV Last administered on 04/12/17t 12:31; Start 04/12/17 at 10:00; Stop 04/12/17 at 10:01; Status DC Furosemide (Lasix) 40 mg DAILY IVP ; Start 04/14/17 at 09:00 Active Scripts Active Allopurinol 100 Mg Tablet 1 Tab PO DAILY Metolazone 2.5 Mg Tablet 2.5 Mg PO 2XWEEK 90 Days Amlodipine Besylate 5 Mg Tablet 10 Mg PO DAILY 90 Days LAST DOSE GIVEN: DATE: 01/01/17 TIME: 0900 NEXT DOSE DUE: DATE: 01/02/17 TIME: 0900 Reported Meclizine Hcl 25 Mg Tablet 1 Tab PO PRN TID Take as prescribed when needed Duoneb 0.5-3(2.5) Mg/3 Ml (Albuterol/Ipratropium) 3 Ml Ampul.neb 3 Ml NEB PRN Q6HRS PRN Dexilant (Dexlansoprazole) 60 Mg Cap.mp 1 Cap PO DAILY Take tomorrow morning Atorvastatin Calcium 10 Mg Tablet 1 Tab PO HS LAST DOSE GIVEN: DATE: 04/06/17 TIME: 9 PM NEXT DOSE DUE: DATE: 04/07/17 TIME: 9 PM Tylenol (Acetaminophen) 325 Mg Tablet 2 Tab PO PRN Q6HRS PRN Take as directed when needed Senokot-S Tablet (Sennosides/Docusate Sodium) 1 Each Tablet 1 Tab PO BID LAST DOSE GIVEN: DATE: 04/07/17 TIME: 9 AM NEXT DOSE DUE: DATE: 04/07/17 TIME: 9 PM Bystolic (Nebivolol Hcl) 5 Mg Tablet 1 Tab PO HS LAST DOSE GIVEN: DATE: 04/06/17 TIME: 9 PM NEXT DOSE DUE: DATE: 04/07/17 TIME: 9 PM Magnesium Oxide 400 Mg Tablet 1 Tab PO DAILY Take tomorrow morning Glimepiride 4 Mg Tablet 1 Tab PO DAILY Take tomorrow morning Furosemide 40 Mg Tablet 1 Tab PO DAILY Take tomorrow morning Novolog Flexpen (Insulin Aspart) 100 Unit/1 Ml Insuln.pen 0-7 Unit SQ QIDACHS LAST DOSE GIVEN: DATE: 04/07/17 TIME: 1130 NEXT DOSE DUE: DATE: 04/07/17 TIME: 9 PM According to sliding scale NITROGLYCERIN SubLingual (Nitroglycerin) 0.4 Mg Tab.subl 0.4 Mg SL PRN Q5MIN PRN LAST DOSE GIVEN: DATE: No given in hospital TIME: NEXT DOSE DUE: DATE: as needed for chest pain TIME: Xanax (Alprazolam) 0.25 Mg Tablet 0.25 Mg PO PRN TID PRN Take as directed when needed DATE: 01/01/17 TIME: 2100 NEXT DOSE DUE: DATE: 01/02/17 TIME: 0900 Levemir (Insulin Detemir) 100 Unit/1 Ml Vial 20 Unit SQ HS LAST DOSE GIVEN: DATE: 04/06/17 TIME: 9 PM NEXT DOSE DUE: DATE: 04/07/17 TIME: 9 PM Eliquis (Apixaban) 2.5 Mg Tablet 2.5 Mg PO BID LAST DOSE GIVEN: DATE: 04/07/17 TIME: 9 AM NEXT DOSE DUE: DATE: 04/07/17 TIME: 9 PM Vitamin D (Cholecalciferol (Vitamin D3)) 2,000 Unit Capsule 5,000 Unit PO WEEKLY Continue taking on your weekly schedule DATE: 12/31/16 TIME: 0900 NEXT DOSE DUE: DATE:01/07/17 TIME: 0900 Metoprolol Tartrate 25 Mg Tablet 25 Mg PO BID LAST DOSE GIVEN: DATE: 04/07/17 TIME: 9 AM NEXT DOSE DUE: DATE: 04/07/17 TIME: 9 PM Vitals/I & O Vital Sign - Last 24 Hours 04/13/17 04/13/17 04/13/17 04/13/17 11:11 14:43 15:16 18:25 Temp 97.0 97.8 98.3 Pulse 68 60 70 Resp 20 20 20 B/P (MAP) 123/61 (81) 135/68 (90) 136/75 (95) Pulse Ox 99 99 100 99 O2 Delivery Nasal Cannula Nasal Cannula Nasal Cannula Room Air O2 Flow Rate 2.0 2.0 2.0 04/13/17 04/13/17 04/13/17 04/13/17 20:00 20:00 20:34 20:54 Temp 98.0 Pulse 68 68 Resp 18 B/P (MAP) 119/60 (79) 119/60 Pulse Ox 97 100 O2 Delivery Room Air Room Air Nasal Cannula O2 Flow Rate 2.0 04/14/17 04/14/17 00:01 05:00 Temp 98.2 Pulse 65 68 Resp 20 20 B/P (MAP) 124/68 (86) 138/66 (90) Pulse Ox 97 98 O2 Delivery Room Air Room Air CAROL ALLEN Jr, MD 04/20/17 1820: PROGRESS NOTES Assessment The patient was seen by Gabino Sullivan APRN and I have reviewed her findings and plan and agree with above. Due to staffing constraints, we did not have an attending available on this day to see the patient. Problems: GABINO SULLIVAN APRN Apr 14, 2017 09:03 CAROL ALLEN Jr, MD Apr 20, 2017 18:20
[2017-04-14] MEDS: ALLOPURINOL 100 MG TABLET. PO SCH (11:03)
[2017-04-14] MEDS: METOPROLOL TART IMMED RELEASE 25 MG TABLET PO SCH ×2 (11:03→21:41)
[2017-04-14] MEDS: SENNOSIDES/DOCUSATE 8.6/50MG TABLET. PO SCH ×2 (11:04→21:40)
[2017-04-14] MEDS: APIXABAN 2.5 MG TABLET PO SCH ×2 (11:04→21:41)
[2017-04-14] MEDS: MAGNESIUM OXIDE 400 MG TABLET PO SCH (11:04)
[2017-04-14] MEDS: amLODIPine BESYLATE 10 MG TABLET PO SCH (11:04)
[2017-04-14] MEDS: GLIMEPIRIDE 4 MG TABLET PO SCH (11:04)
[2017-04-14] MEDS: PANTOPRAZOLE 40 MG TABLET. PO SCH (11:04)
[2017-04-14] MEDS: FUROSEMIDE 40 MG/4 ML VIAL IVP SCH (11:05)
[2017-04-14] MEDS: ACETAMINOPHEN 325 MG TABLET PO PRN (11:19)
--- NOTE | 2017-04-14 12:00 | CONS ---
DATE OF CONSULTATION: 04/13/2017 CARDIOLOGY CONSULTATION HISTORY OF PRESENT ILLNESS: This is an 86-year-old -[place] woman who is well known to our service, who has been in and out of the hospital recently with multiple different issues, the most recent being a hip surgery on the right side. She was in the hospital and was discharged 6 days ago from the swing bed. However, after she went home, she noted that she was more short of breath and hence decided to come to the hospital. On further questioning, she said she has been short of breath for a year or so, and hence this appears to be a worsening of the baseline abnormality. She has noticed edema, more on the right than the left. She is feeling somewhat better, although she continues to have exertional shortness of breath and tiredness even with walking. REVIEW OF SYSTEMS: Shortness of breath and tightness, and pedal edema. She denies any palpitations. She denies any dizziness. She has hip pain from a recent surgery. She does have chronic exertional dyspnea for at least a year and has seen multiple doctors for this. PREVIOUS MEDICAL HISTORY: She has a history of coronary artery disease, and has a history of stent placement to the LAD, with the most recent stent in 07/2015. She had her most recent cardiac catheterization in 09/2016, which showed that her stent in the LAD was patent, although it may be protruding into the left main. There is a 20% stenosis. There was an 80% stenosis in the ostium of the left circumflex, which was decided to be managed medically, and the right coronary artery was nonobstructive. She has normal LV function. Her PA systolic pressure is mildly increased to 37. She has a history of DVT, paroxysmal atrial fibrillation, sick sinus syndrome, status post pacemaker implant, hypertension, and untreated hypercholesterolemia. She is a diabetic, on insulin currently. FAMILY HISTORY: Mother had a history of coronary artery disease, but at age of 92. There is no other family history of premature coronary artery disease. SOCIAL HISTORY: She lives with her son. She does not smoke or take alcohol. She does have oxygen. She uses a cane normally. MEDICATIONS: This is reviewed. This includes furosemide, Eliquis, amlodipine, metolazone, glimepiride, insulin, metoprolol, Nitrostat. PHYSICAL EXAMINATION: GENERAL: She appears comfortable. Her family is with her. VITAL SIGNS: She is afebrile. O2 sats 99% on nasal cannula at 2 liters at 94% on room air. Blood pressure 135/68. HEENT: Her pupils are equal and reactive. Extraocular movements are normal. Sclerae was clear. Mucous membranes are moist. NECK: Supple. No thyromegaly. Jugular venous pressure is not elevated. Hepatojugular reflux is absent. There are no carotid bruits. Apical impulse is not palpable. She does appear to have prominent parasternal pulsations. CARDIOVASCULAR: First and second heart sounds appear normal. She has a 2/6 systolic murmur. There are no diastolic murmurs. CHEST: Revealed diminished breath sounds bilaterally. She does have expiratory wheezing. Diminished breath sounds are diminished bilaterally. No crackles. ABDOMEN: Soft, without any palpable mass or pulsations. No bruits. EXTREMITIES: Revealed mild edema on the right leg and trace edema on the left leg. Distal pulses are well felt. There is no cyanosis or clubbing. No tremors. NEUROLOGIC: There is no facial asymmetry. There are no motor or sensory deficits. INVESTIGATIONS: Hemoglobin was 9.0, 7.7, and 8.7. Her BUN and creatinine are 42 and 1.9. Her ProBNP was . Her serial troponins are negative. EKG: Shows an atrial ventricular paced rhythm. IMPRESSION: 1. Acute decompensated diastolic congestive heart failure: This may be secondary to her recent hospitalization component by anemia. Her symptoms appear to be related to this. The proBNP is ____. I would agree with Lasix IV, which was just seen today and increasing the metolazone. Her edema has improved, although her respiratory symptoms still persist. 2. ?Chronic obstructive pulmonary disease: Chest examination does reveal expiratory wheezes. She is not known to have COPD. She has had a chest CT today, the report of which is still pending. 3. Pulmonary hypertension: She has had mild pulmonary hypertension with a PA systolic pressure of 37 by her most recent echo in September 2016. It is possible that this is an underestimation. 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 4. Coronary artery disease: She had a prior stent to the proximal LAD and the most recent cardiac catheterization showed an 80% stenosis in the ostium of the left circumflex, which was managed medically. I will add Imdur to this regimen. 5. Essential hypertension: Blood pressure under good control except for occasional spike to 160. 6. Hypercholesterolemia: She is not on a statin. She should be on one as she has coronary disease and a diabetic. I discussed this with her. She thought she was on some treatment. I will start her on a statin. 7. Exertional chest tightness: This is likely related to CHF. Her troponins are negative. She had a recent cardiac catheterization. She also reports that she has had a stress myocardial perfusion scan in Dr. Dunn's office. 8. Edema: Likely related to surgery as well as renal impairment. This is improving with IV Lasix. 9. Chronic kidney disease: Creatinine has been ranging between 1.8-2.0. 10. Anemia: Her hemoglobin dropped to as low as 7.7. This is likely related to her recent surgery. 11. Paroxysmal atrial fibrillation: She was placed on warfarin, but now is on Eliquis 2.5, which is appropriate for her age and renal impairment. 12. Recent hip surgery. She had a negative V/Q scan and lower extremity duplex scan. Thank you for the consultation. PAUL FERRER MD DR: NEREYDA/deepak JOB#: [id number] / [id number] JAMES Lynch MD, KIRITKUMAR MD
--- NOTE | 2017-04-14 14:50 | RAD ---
Right lower extremity venous ultrasound, 04/14/2017 : History: Right groin and thigh pain after hip replacement Duplex evaluation including grayscale, color flow and spectral Doppler analysis was performed. The femoral and popliteal veins show no filling defects to suggest DVT. The visualized deep veins in the right calf are unremarkable. IMPRESSION: There is no sonographic evidence of deep vein thrombosis in the right lower extremity
[2017-04-14 15:34] VITALS: BP 134/62
--- NOTE | 2017-04-14 18:17 | NUR ---
Pt has been in the chair for the majority of the day with visitors at bedside. Pt was c/o new onset of pain 6/10 in right leg. Pt would grimace with any pressure to the groin or the inner calf. Dr. Lynn notified and order given to obtain a new venous doppler. Pt has had to use PRN O2 at 2L/NC throughout the day. Request to hold senna this evening as she has had 2 loose stools today and excellent output from the lasix. Pt is up with SBA and walker to get around in the room. Denies further needs at this time, encourage to elevate legs as there is 3+ pitting edema bilaterally. Pt refuses SCD's or KELLE hose. Up in chair and call light within reach.
[2017-04-14 19:49] VITALS: BP 122/63
[2017-04-14] MEDS: IPRATRPIUM/ALBUTEROL 0.5/2.5MG 3 ML NEBU. NEB SCH (21:37)
[2017-04-14] MEDS: INSULIN DETEMIR 300 UNITS/3 ML INSULN.PEN. SQ SCH (21:39)
[2017-04-14] MEDS: ATORVASTATIN CALCIUM 10 MG TABLET. PO SCH (21:41)
[2017-04-14 23:33] VITALS: BP 122/56
--- NOTE | 2017-04-15 03:28 | PN ---
DATE: 04/14/2017 SUBJECTIVE: The patient is sitting comfortably in her recliner, in no apparent distress. She complained of pain in her right lower extremity, which is more swollen than the left lower extremity. We did a venous Doppler ultrasound, which was negative for deep vein thrombosis. She was seen by the Cardiology team, who made some adjustment including adding Imdur as well as statin. PHYSICAL EXAMINATION: GENERAL: When I examined her this afternoon, she looked well and was clearly in no apparent respiratory distress, pale, but no jaundice, cyanosis, or thyromegaly. No jugular venous distention. No limb edema. VITAL SIGNS: Her heart rate was 74, blood pressure 134/62, temperature was 98.2, respiratory rate 20, and oxygen saturation was 98% on 2 liters of oxygen. HEAD, EYES, EARS, NOSE AND THROAT: Showed normocephalic, atraumatic. NECK: Supple. HEART: Showed normal first and second heart sounds with no gallop, rub or murmur. CHEST: Shows central trachea, equally reduced expansion, reduced air entry, vesicular sounds with very few scattered rhonchi, could not appreciate any crepitation. ABDOMEN: Distended, soft, nontender. No guarding or rigidity. No organomegaly. Hernial orifices were intact. Bowel sounds normal. NEUROLOGIC: She was awake, alert, responding appropriately. Cranial nerves intact. She moves extremities without difficulty. EXTREMITIES: Her right lower extremity is definitely more swollen than left and she has marked tenderness in her right foot, especially around the first tarsometatarsal, especially over the big toe and the lateral aspect of the right foot. LABORATORY DATA: Her intake over the last 24 hours was 1100, output was 2400. Her lab work this morning showed a white cell count of 7600, hemoglobin 7.9, hematocrit 24, MCV 88 and platelet count 216,000. Her chemistry showed a serum sodium 143, potassium 3.9, chloride 107, bicarbonate 29, anion gap of 7, BUN 42, creatinine 1.9, estimated GFR was mL per minute. Her glucose was 99. Calcium was 8.8, magnesium was 2.1. Total bilirubin, AST, ALT, alkaline phosphatase were normal. Her total protein was 6.3, albumin 3. Her prothrombin time was 10.3, INR of 1, APTT is 26. Her D-dimer was slightly high at 2.09. Urinalysis was essentially unremarkable. ASSESSMENT: 1. Acute decompensated diastolic congestive heart failure for which she is now on IV Lasix together with metolazone. She continued to have swollen lower extremities, right more than left and continued to complain of shortness of breath on exertion. 2. Chronic obstructive pulmonary disease. The patient herself denied and said she has never smoked, but she has been a secondhand smoker. Her V/Q scan was low probability for PE and her CT scan of the chest was unremarkable. 3. Pulmonary hypertension. 4. Coronary artery disease for which she had had a prior stent to the proximal left anterior descending and the most recent cardiac catheterization showed an 80% stenosis in the ostium of the left circumflex, which was managed medically. Dr. Canela has added Imdur to her treatment. 5. Hypertension, seems to be reasonably controlled with occasional spikes. 6. Hypercholesterolemia for which she was started on statin. 7. Exertional chest tightness, likely related to congestive heart failure. Her troponin was negative. 8. Bilateral lower extremity edema, right more than left, for which we started her on IV Lasix and also did venous Doppler ultrasound, was negative. 9. Chronic kidney disease with serum creatinine that is stable between 1.8 to 2 mg. 10. Normochromic normocytic anemia that is most likely due to chronic kidney disease. 11. Paroxysmal atrial fibrillation, rate controlled and she is now on apixaban and well anticoagulated. 12. Pain in her right big toe consistent with flareup of gout for which I will start her on a short course of tapering steroids in the form of Medrol Dosepak. JAMES MULTANI MD DR: ESTEPHANIA/deepak JOB#: [id number] / [id number]
[2017-04-15 05:42] VITALS: BP 126/55
[2017-04-15 06:24] LABS: BASO # 0.1 x10^3/uL (0.0-0.2); BASO % 1 % (0-3); EOS # 0.4 x10^3/uL (0.0-0.7); EOS % 5 % (0-3); HEMATOCRIT 24.9 % (36.0-47.0); HEMOGLOBIN 8.2 g/dL (12.0-15.5); LYMPH # 1.8 x10^3/uL (1.0-4.8); LYMPH % 24 % (24-48); MEAN CORPUSCULAR HEMOGLOBIN 29 pg (25-35); MEAN CORPUSCULAR HGB CONC 33 g/dL (31-37); MEAN CORPUSCULAR VOLUME 87 fL (79-100); MONO # 0.6 x10^3/uL (0.0-1.1); MONO % 8 % (0-9); NEUT # 4.8 x10^3uL (1.8-7.7); NEUT % 63 % (31-73); PLATELET COUNT 223 x10^3/uL (140-400); RED BLOOD COUNT 2.86 x10^6/uL (3.50-5.40); RED CELL DISTRIBUTION WIDTH 15.6 % (11.5-14.5); WHITE BLOOD COUNT 7.7 x10^3/uL (4.0-11.0)
[2017-04-15 06:40] LABS: ALBUMIN/GLOBULIN RATIO 0.9 (1.0-1.7); C REACTIVE PROTEIN 10.2 mg/L (0-3.3); CALCIUM 8.9 mg/dL (8.5-10.1); CREATININE 1.8 mg/dL (0.6-1.0); GFR 32.3; POTASSIUM 4.2 mmol/L (3.5-5.1); TOTAL BILIRUBIN 0.2 mg/dL (0.2-1.0); TOTAL PROTEIN 6.4 g/dL (6.4-8.2); URIC ACID 8.7 mg/dL (2.6-6.0)
--- NOTE | 2017-04-15 07:24 | RAD ---
Right foot, 2 views, 04/14/2017: History: Foot pain There is moderate degenerative change at the first MTP joint. There is mild spurring at the midfoot level. No fracture or destructive bony lesion is seen. Arterial calcifications are evident. There is moderate diffuse soft tissue swelling about the foot. IMPRESSION: 1. Degenerative change. 2. No acute bony abnormality is detected.
[2017-04-15] MEDS: INSULIN ASPART 300 UNITS/3 ML INSULN.PEN SQ SCH ×4 (07:30→20:57)
[2017-04-15 08:10] LABS: SEDIMENTATION RATE 70 (0-25)
[2017-04-15] MEDS ORDERED: methylPREDNISolone 4 MG TABLET. PO SCH ×4 (08:30→21:00)
[2017-04-15] MEDS: SENNOSIDES/DOCUSATE 8.6/50MG TABLET. PO SCH ×2 (09:00→20:39)
--- NOTE | 2017-04-15 09:55 | PDOC ---
SUBJECTIVE Subjective: Ms. Noriega is doing reasonably well this morning. She reports that her breathing continues to improve. She does continue to report symptoms of chest pressure and discomfort. She has not been able to identify any significant exacerbating or relieving factors, other than perhaps some mild exertion. The patient denies any palpitations, lightheadedness, or syncope. She has not had any significant nausea or vomiting. Exam x OBJECTIVE Vital Signs Vital Signs Date Time Temp Pulse Resp B/P (MAP) Pulse Ox O2 Delivery O2 Flow Rate FiO2 04/15/17 08:33 Room Air 04/15/17 05:42 97.5 64 20 126/55 (78) 94 04/14/17 15:34 2.0 Physical Exam Constitutional: Well developed, well nourished, no acute distress, non-toxic appearance. HENT: Normocephalic, atraumatic, bilateral external ears normal, oropharynx moist, no oral exudates, nose normal. Eyes: ABBY, EOMI, conjunctiva normal, no discharge. Neck: Normal range of motion, no tenderness, supple, no stridor. Cardiovascular: JVP not elevated. No carotid bruit. Nor precordial pulsations or heaves. S1 N,S2N. No murmurs. No rubs or clicks. Thorax and Lungs: Normal respiration. Normal chest expansion. Normal to percuss. Equal breath sounds. No crackles. Expiratory wheezes. Abdomen: Bowel sounds normal, soft, no tenderness, no masses, no pulsatile masses. Skin: Warm, dry, no erythema, no rash. Back: No tenderness, no CVA tenderness. Extremities: Intact distal pulses, no tenderness, no cyanosis, no clubbing, ROM intact, 1+ pitting edema bilaterally. Neurologic: Alert and oriented X 3, normal motor function, normal sensory function, no focal deficits noted. Psychologic: Affect normal, judgement normal, mood normal. Lab Laboratory Tests Test 04/14/17 11:28 04/14/17 16:53 04/14/17 20:32 04/15/17 05:58 Glucose (Fingerstick) 197 mg/dL (70-99) H 253 mg/dL (70-99) H 132 mg/dL (70-99) H White Blood Count 7.7 x10^3/uL (4.0-11.0) Red Blood Count 2.86 x10^6/uL (3.50-5.40) L Hemoglobin 8.2 g/dL (12.0-15.5) L Hematocrit 24.9 % (36.0-47.0) L Mean Corpuscular Volume 87 fL (79-100) Mean Corpuscular Hemoglobin 29 pg (25-35) Mean Corpuscular Hemoglobin Concent 33 g/dL (31-37) Red Cell Distribution Width 15.6 % (11.5-14.5) H Platelet Count 223 x10^3/uL (140-400) Neutrophils (%) (Auto) 63 % (31-73) Lymphocytes (%) (Auto) 24 % (24-48) Monocytes (%) (Auto) 8 % (0-9) Eosinophils (%) (Auto) 5 % (0-3) H Basophils (%) (Auto) 1 % (0-3) Neutrophils # (Auto) 4.8 x10^3uL (1.8-7.7) Lymphocytes # (Auto) 1.8 x10^3/uL (1.0-4.8) Monocytes # (Auto) 0.6 x10^3/uL (0.0-1.1) Eosinophils # (Auto) 0.4 x10^3/uL (0.0-0.7) Basophils # (Auto) 0.1 x10^3/uL (0.0-0.2) Erythrocyte Sedimentation Rate 70 (0-25) H Sodium Level 141 mmol/L (136-145) Potassium Level 4.2 mmol/L (3.5-5.1) Chloride Level 106 mmol/L (98-107) Carbon Dioxide Level 33 mmol/L (21-32) H Anion Gap 2 (6-14) L Blood Urea Nitrogen 37 mg/dL (7-20) H Creatinine 1.8 mg/dL (0.6-1.0) H Estimated GFR (Cockcroft-Gault) 32.3 BUN/Creatinine Ratio 21 (6-20) H Glucose Level 133 mg/dL (70-99) H Uric Acid 8.7 mg/dL (2.6-6.0) H Calcium Level 8.9 mg/dL (8.5-10.1) Total Bilirubin 0.2 mg/dL (0.2-1.0) Aspartate Amino Transferase (AST) 13 U/L (15-37) L Alanine Aminotransferase (ALT) 19 U/L (14-59) Alkaline Phosphatase 58 U/L (46-116) C-Reactive Protein 10.2 mg/L (0-3.3) H Total Protein 6.4 g/dL (6.4-8.2) Albumin 3.0 g/dL (3.4-5.0) L Albumin/Globulin Ratio 0.9 (1.0-1.7) L Test 04/15/17 08:00 Glucose (Fingerstick) 112 mg/dL (70-99) H MEDICATIONS Medications Current Medications Medications (Trade) Dose Ordered Sig/Ruel Start Time Stop Time Status Last Admin Dose Admin Acetaminophen (Tylenol) 650 mg PRN Q6HRS PRN 04/11/17 18:45 04/14/17 11:19 650 MG Albuterol Sulfate (Ventolin) 2.5 mg PRN Q6HRS PRN 04/11/17 19:00 Albuterol/ Ipratropium (Duoneb) 3 ml [id number] 04/12/17 16:00 04/14/17 21:37 3 ML Allopurinol (Zyloprim) 100 mg DAILY 04/12/17 09:00 04/14/17 11:03 100 MG Alprazolam (Xanax) 0.25 mg PRN TID PRN 04/11/17 18:45 04/13/17 22:31 0.25 MG Amlodipine Besylate (Norvasc) 10 mg DAILY 04/12/17 09:00 04/14/17 11:04 10 MG Apixaban (Eliquis) 2.5 mg BID 04/11/17 21:00 04/14/17 21:41 2.5 MG Aspirin (Children'S Aspirin) 324 mg 1X ONCE 04/11/17 18:00 04/11/17 18:02 DC 04/11/17 17:40 324 MG Atorvastatin Calcium (Lipitor) 10 mg HS 04/11/17 21:00 04/14/17 21:41 10 MG Dextrose 12.5 gm PRN Q15MIN PRN 04/11/17 18:45 Furosemide (Lasix) 40 mg DAILY 04/14/17 09:00 04/14/17 11:05 40 MG Glimepiride (Amaryl) 4 mg DAILY 04/12/17 09:00 04/14/17 11:04 4 MG Insulin Aspart (NovoLOG) 0-7 UNITS QIDACHS 04/11/17 21:00 04/14/17 16:58 6 UNITS Insulin Detemir (Levemir) 20 units QHS 04/11/17 21:00 04/14/17 21:39 20 UNITS Isosorbide Mononitrate (Imdur) 30 mg DAILY 04/15/17 09:00 Magnesium Oxide (Magnesium Oxide) 400 mg DAILY 04/12/17 09:00 04/14/17 11:04 400 MG Meclizine HCl (Antivert) 25 mg PRN TID PRN 04/11/17 18:45 04/11/17 21:40 25 MG Methylprednisolone (Medrol) 4 mg DAILY 04/20/17 09:00 04/20/17 09:01 Methylprednisolone Sodium Succinate (SOLU-Medrol 40MG VIAL) 30 mg 1X ONCE 04/12/17 10:00 04/12/17 10:01 DC 04/12/17 12:31 30 MG Metolazone (Zaroxolyn) 2.5 mg 3X/WEEK 04/13/17 09:00 04/13/17 08:03 2.5 MG Metoprolol Tartrate (Lopressor) 25 mg BID 04/12/17 09:00 04/12/17 09:00 DC Morphine Sulfate (Morphine 2mg Syringe) 2 mg PRN Q2HR PRN 04/11/17 17:15 04/11/17 18:33 DC Nitroglycerin (Nitrostat) 0.4 mg PRN Q5MIN PRN 04/11/17 18:45 Ondansetron HCl (Zofran) 4 mg PRN Q4HRS PRN 04/11/17 17:15 04/12/17 17:14 DC Pantoprazole Sodium (Protonix) 40 mg DAILYAC 04/12/17 07:30 04/14/17 11:04 40 MG Senna/Docusate Sodium (Senna Plus) 1 tab BID 04/11/17 21:00 04/14/17 21:40 1 TAB Vitamin D (Vitamin D3) 5,000 unit WEEKLY 04/18/17 09:00 PLAN Plan 1. Acute CHF, diastolic, improving 2. HFpEF 3. Chest pain, possible underlying angina pectoris 4. CAD s/p PCI to LAD with known severe residual stenosis of the ostial LCX 5. Essential hypertension 6. Hyperlipidemia Ms. Noriega has remained hemodynamically stable. She continues to have symptoms of mild chest discomfort, particularly with significant exertion, but this appears to be stable at the moment. Patient does have known underlying severe 80% ostial stenosis of her left circumflex coronary artery, as well as a previously placed stent within the proximal LAD extending into the distal left main coronary artery per prior reports. Plans have been to manage this conservatively. On examination, the patient does appear to be more euvolemic, and she does demonstrate evidence of expiratory wheezes on auscultation of her lungs with mild lower extremity edema. At this point in time, I agree with continued IV diuresis. We could consider transitioning her back to oral Lasix regimen tomorrow if able. I agree with continuing her metolazone as prescribed. I would hold off on any further cardiac diagnostic testing in the inpatient setting at this point in time. The patient does follow closely with Dr. Dunn in [place], [place], and I would suggest that she follow closely with him when she is ready for discharge. We will continue to follow along. Please call with any further questions. UMAIR DONALD MD Apr 15, 2017 09:55
[2017-04-15] MEDS: PANTOPRAZOLE 40 MG TABLET. PO SCH (10:25)
[2017-04-15] MEDS: APIXABAN 2.5 MG TABLET PO SCH ×2 (10:26→20:59)
[2017-04-15] MEDS: GLIMEPIRIDE 4 MG TABLET PO SCH (10:26)
[2017-04-15] MEDS: ISOSORBIDE MONONITRATE ER 30 MG TAB.ER.24H PO SCH (10:27)
[2017-04-15] MEDS: FUROSEMIDE 40 MG/4 ML VIAL IVP SCH (10:28)
[2017-04-15] MEDS: METOPROLOL TART IMMED RELEASE 25 MG TABLET PO SCH ×2 (10:28→20:59)
[2017-04-15] MEDS: MAGNESIUM OXIDE 400 MG TABLET PO SCH (10:28)
[2017-04-15] MEDS: methylPREDNISolone 4 MG TABLET. PO SCH ×4 (10:30→21:00)
[2017-04-15] MEDS: amLODIPine BESYLATE 10 MG TABLET PO SCH (10:30)
[2017-04-15] MEDS: ALLOPURINOL 100 MG TABLET. PO SCH (10:31)
[2017-04-15] MEDS: metOLazone 2.5 MG TABLET PO SCH (10:33)
[2017-04-15] MEDS: IPRATRPIUM/ALBUTEROL 0.5/2.5MG 3 ML NEBU. NEB SCH ×2 (10:50→21:00)
[2017-04-15 11:12] VITALS: BP 130/59
--- NOTE | 2017-04-15 13:00 | NUR ---
Pt transferred to Med Surg room 103. "Check in with nurse" note placed on door to limit visitors to 15 minutes. Pt request to sleep at this time, pt will be asked to return later. Pt denies pain or further needs at this time.
[2017-04-15 15:40] VITALS: BP 158/67
[2017-04-15 20:29] VITALS: BP 115/69
[2017-04-15] MEDS: INSULIN DETEMIR 300 UNITS/3 ML INSULN.PEN. SQ SCH (20:55)
[2017-04-15] MEDS: traZODone 50 MG TABLET. PO SCH (20:59)
[2017-04-15] MEDS: ATORVASTATIN CALCIUM 10 MG TABLET. PO SCH (20:59)
[2017-04-15 22:53] VITALS: BP 129/70
[2017-04-16] VITALS (7 sets, daily range): BP systolic 111–136; BP diastolic 57–71
[2017-04-16] MEDS: ACETAMINOPHEN 325 MG TABLET PO PRN ×2 (01:19→20:24)
[2017-04-16] MEDS: ALPRAZolam 0.25 MG TABLET PO PRN (01:19)
--- NOTE | 2017-04-16 01:37 | PN ---
DATE: 04/15/2017 SUBJECTIVE: The patient is resting slightly propped up in her recliner in no apparent distress. She is feeling tired, but denied any chest pain or shortness of breath. The swelling of her right lower extremity is still there, but the venous Doppler ultrasound is negative. X-ray of her right foot is negative, apart from some degenerative changes, no evidence of fracture. OBJECTIVE: GENERAL: On examining her, she looked pale, but not jaundiced, cyanosed or thyromegaly. No jugular venous distension. No limb edema. VITAL SIGNS: Her heart rate was 64, blood pressure 130/59, temperature was 97.5, respiratory rate was 20, and oxygen saturation was 95% on room air. HEAD, EYES, EARS, NOSE AND THROAT: Showed normocephalic, atraumatic. NECK: Supple. HEART: Showed normal first and second heart sounds with no gallop, rub or murmur. CHEST: Clear to auscultation. No crepitation or rhonchi. ABDOMEN: Distended, soft, nontender. No guarding or rigidity. No organomegaly. Hernial orifices intact. Bowel sounds normal. NEUROLOGIC: She was sleepy, but arousable. All cranial nerves intact. She moves extremities without difficulty. She ambulates with a walker. Her intake was 1080, output was 2400. LABORATORY DATA: As of this morning, her white cell count was 7700, hemoglobin 8.2, hematocrit 24.9, MCV 87 and platelet count 223,000. Her chemistry showed a serum sodium 141, potassium 4.2, chloride 106, bicarbonate 33, anion gap of 2, BUN of 37 and creatinine 1.8. Estimated GFR was 32 mL per minute. Her glucose was 133, uric acid was 8.7, calcium was 8.9. Total bilirubin, AST, ALT, alkaline phosphatase were normal. Her C-reactive protein was high at 10.2, total protein was 6.4, albumin 3. Her sedimentation rate was 70 mm per hour. ASSESSMENT: 1. Acute decompensated diastolic congestive heart failure, for which she is now on IV Lasix together with metolazone. She continued to have swelling in the lower extremity, right more than left. She continued to complain of shortness of breath on exertion. 2. Chronic obstructive pulmonary disease. The patient herself denied any smoking, she has never smoked; however, she has been a secondhand smoker. Her VQ scan showed low probability for PE and her CT scan of the chest was unremarkable. 3. Pulmonary hypertension. 4. Coronary artery disease for which she has had prior stent to the proximal left anterior descending. Most recent cardiac catheterization showed an 80% stenosis to the ostium of the left circumflex, which was managed medically. Imdur 30 mg was added yesterday. 5. Hypertension seems to be reasonably controlled with occasional spikes. 6. Hypercholesterolemia for which she was started on statin. 7. Exertional chest tightness, likely related to congestive heart failure. Her troponins were negative. 8. Bilateral lower extremity edema, right more than left, for which we started her on IV Lasix and did venous Doppler ultrasound that was negative. 9. Chronic kidney disease with serum creatinine that is stable around 1.8 to 2 mg/dL. 10. Normochromic normocytic anemia that is most likely due to chronic kidney disease. 11. Paroxysmal atrial fibrillation, rate controlled and she is now on apixaban and well anticoagulated. 12. Pain in her right big toe consistent with flare up of gout, for which we started her on short course of tapering steroids in the form of Medrol Dosepak. PLAN: To continue with IV Lasix. Continue with tapering course of steroids. Continue with metolazone. Continue with nebulized albuterol and Atrovent as well as allopurinol. Continue to monitor her blood sugars and adjust insulin as needed. We will discharge her to swing bed. JAMES MULTANI MD DR: ESTEPHANIA/deepak JOB#: [id number] / [id number]
[2017-04-16 06:45] LABS: ALBUMIN 2.9 g/dL (3.4-5.0); ALBUMIN/GLOBULIN RATIO 0.9 (1.0-1.7); CALCIUM 8.4 mg/dL (8.5-10.1); GFR 28.6; POTASSIUM 4.9 mmol/L (3.5-5.1); TOTAL BILIRUBIN 0.3 mg/dL (0.2-1.0); TOTAL PROTEIN 6.2 g/dL (6.4-8.2)
[2017-04-16 06:52] LABS: BASO % 0 % (0-3); EOS % 0 % (0-3); HEMATOCRIT 23.5 % (36.0-47.0); HEMOGLOBIN 7.9 g/dL (12.0-15.5); LYMPH # 0.9 x10^3/uL (1.0-4.8); LYMPH % 12 % (24-48); MEAN CORPUSCULAR HEMOGLOBIN 29 pg (25-35); MEAN CORPUSCULAR HGB CONC 33 g/dL (31-37); MEAN CORPUSCULAR VOLUME 86 fL (79-100); MONO # 0.3 x10^3/uL (0.0-1.1); MONO % 3 % (0-9); NEUT # 6.3 x10^3uL (1.8-7.7); NEUT % 84 % (31-73); PLATELET COUNT 202 x10^3/uL (140-400); RED BLOOD COUNT 2.74 x10^6/uL (3.50-5.40); RED CELL DISTRIBUTION WIDTH 15.1 % (11.5-14.5); WHITE BLOOD COUNT 7.5 x10^3/uL (4.0-11.0)
[2017-04-16] MEDS: methylPREDNISolone 4 MG TABLET. PO SCH ×3 (08:08→17:16)
[2017-04-16] MEDS: PANTOPRAZOLE 40 MG TABLET. PO SCH (08:09)
[2017-04-16] MEDS: INSULIN ASPART 300 UNITS/3 ML INSULN.PEN SQ SCH ×4 (08:10→20:39)
[2017-04-16] MEDS ORDERED: methylPREDNISolone 4 MG TABLET. PO SCH ×3 (09:00→21:00)
--- NOTE | 2017-04-16 09:49 | PDOC ---
GABINO SULLIVAN GRAVITY PROSPECTING OPERATOR 04/16/17 0949: PROGRESS NOTES Diagnosis Problem Problems Medical Problems: (1) Chest pain Status: Acute (2) CHF (congestive heart failure) Status: Acute (3) Shortness of breath Status: Acute Assessment We are seeing the patient for congestive heart failure 1. Congestive heart failure, acute on chronic diastolic. Not on NICHOLE/ARB due to chronic kidney disease. change over to oral therapy and plan to transfer to swing bed. 2. CAD - Chest tightness - NE has been ruled out. Continue medical therapy. Will plan for evaluation post discharge. 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 HTN - Controlled, continue current medications 4. HLD - Continue statin therapy Problems: Subjective She is sitting up in the chair and her breathing has improved. She continues to have swelling in her right leg greater than her left leg. She complains of restless leg syndrome and feeling of hoarseness. She states her chest discomfort she does not believe is coming from her heart she pleases coming from the congestion. It is not related to activity and does not seem worse when she is mobile. It is not associated with any shortness of breath, nausea, vomiting or diaphoresis. Objective Vital Signs Date Time Temp Pulse Resp B/P (MAP) Pulse Ox O2 Delivery O2 Flow Rate FiO2 04/16/17 05:50 98.2 69 20 120/71 (87) 97 Room Air 04/14/17 15:34 2.0 Intake and Output 04/17/17 07:00 Intake Total 480 ml Balance 480 ml Intake Oral 480 ml Abdomen: Normal bowel sounds, Soft, No tenderness Heart: Regular rate, Normal S1, Normal S2, No murmurs Extremities: Other (right +1 and left trace) General: Alert, Oriented X3, Cooperative Lungs: Clear to auscultation Psych/Mental Status: Mental status NL, Mood NL Review of Relevant I have reviewed the following items alisha (where applicable) has been applied. Labs Laboratory Tests Test 04/14/17 11:28 04/14/17 16:53 04/14/17 20:32 04/15/17 05:58 Glucose (Fingerstick) 197 mg/dL (70-99) 253 mg/dL (70-99) 132 mg/dL (70-99) White Blood Count 7.7 x10^3/uL (4.0-11.0) Red Blood Count 2.86 x10^6/uL (3.50-5.40) Hemoglobin 8.2 g/dL (12.0-15.5) Hematocrit 24.9 % (36.0-47.0) Mean Corpuscular Volume 87 fL (79-100) Mean Corpuscular Hemoglobin 29 pg (25-35) Mean Corpuscular Hemoglobin Concent 33 g/dL (31-37) Red Cell Distribution Width 15.6 % (11.5-14.5) Platelet Count 223 x10^3/uL (140-400) Neutrophils (%) (Auto) 63 % (31-73) Lymphocytes (%) (Auto) 24 % (24-48) Monocytes (%) (Auto) 8 % (0-9) Eosinophils (%) (Auto) 5 % (0-3) Basophils (%) (Auto) 1 % (0-3) Neutrophils # (Auto) 4.8 x10^3uL (1.8-7.7) Lymphocytes # (Auto) 1.8 x10^3/uL (1.0-4.8) Monocytes # (Auto) 0.6 x10^3/uL (0.0-1.1) Eosinophils # (Auto) 0.4 x10^3/uL (0.0-0.7) Basophils # (Auto) 0.1 x10^3/uL (0.0-0.2) Erythrocyte Sedimentation Rate 70 (0-25) Sodium Level 141 mmol/L (136-145) Potassium Level 4.2 mmol/L (3.5-5.1) Chloride Level 106 mmol/L (98-107) Carbon Dioxide Level 33 mmol/L (21-32) Anion Gap 2 (6-14) Blood Urea Nitrogen 37 mg/dL (7-20) Creatinine 1.8 mg/dL (0.6-1.0) Estimated GFR (Cockcroft-Gault) 32.3 BUN/Creatinine Ratio 21 (6-20) Glucose Level 133 mg/dL (70-99) Uric Acid 8.7 mg/dL (2.6-6.0) Calcium Level 8.9 mg/dL (8.5-10.1) Total Bilirubin 0.2 mg/dL (0.2-1.0) Aspartate Amino Transf (AST/SGOT) 13 U/L (15-37) Alanine Aminotransferase (ALT/SGPT) 19 U/L (14-59) Alkaline Phosphatase 58 U/L (46-116) C-Reactive Protein 10.2 mg/L (0-3.3) Total Protein 6.4 g/dL (6.4-8.2) Albumin 3.0 g/dL (3.4-5.0) Albumin/Globulin Ratio 0.9 (1.0-1.7) Test 04/15/17 08:00 04/15/17 11:35 04/15/17 17:02 04/15/17 20:11 Glucose (Fingerstick) 112 mg/dL (70-99) 225 mg/dL (70-99) 332 mg/dL (70-99) 379 mg/dL (70-99) Test 04/15/17 22:40 04/16/17 06:08 04/16/17 07:26 Glucose (Fingerstick) 320 mg/dL (70-99) 282 mg/dL (70-99) White Blood Count 7.5 x10^3/uL (4.0-11.0) Red Blood Count 2.74 x10^6/uL (3.50-5.40) Hemoglobin 7.9 g/dL (12.0-15.5) Hematocrit 23.5 % (36.0-47.0) Mean Corpuscular Volume 86 fL (79-100) Mean Corpuscular Hemoglobin 29 pg (25-35) Mean Corpuscular Hemoglobin Concent 33 g/dL (31-37) Red Cell Distribution Width 15.1 % (11.5-14.5) Platelet Count 202 x10^3/uL (140-400) Neutrophils (%) (Auto) 84 % (31-73) Lymphocytes (%) (Auto) 12 % (24-48) Monocytes (%) (Auto) 3 % (0-9) Eosinophils (%) (Auto) 0 % (0-3) Basophils (%) (Auto) 0 % (0-3) Neutrophils # (Auto) 6.3 x10^3uL (1.8-7.7) Lymphocytes # (Auto) 0.9 x10^3/uL (1.0-4.8) Monocytes # (Auto) 0.3 x10^3/uL (0.0-1.1) Eosinophils # (Auto) 0.0 x10^3/uL (0.0-0.7) Basophils # (Auto) 0.0 x10^3/uL (0.0-0.2) Sodium Level 137 mmol/L (136-145) Potassium Level 4.9 mmol/L (3.5-5.1) Chloride Level 103 mmol/L (98-107) Carbon Dioxide Level 29 mmol/L (21-32) Anion Gap 5 (6-14) Blood Urea Nitrogen 47 mg/dL (7-20) Creatinine 2.0 mg/dL (0.6-1.0) Estimated GFR (Cockcroft-Gault) 28.6 BUN/Creatinine Ratio 24 (6-20) Glucose Level 293 mg/dL (70-99) Calcium Level 8.4 mg/dL (8.5-10.1) Total Bilirubin 0.3 mg/dL (0.2-1.0) Aspartate Amino Transf (AST/SGOT) 11 U/L (15-37) Alanine Aminotransferase (ALT/SGPT) 14 U/L (14-59) Alkaline Phosphatase 58 U/L (46-116) Total Protein 6.2 g/dL (6.4-8.2) Albumin 2.9 g/dL (3.4-5.0) Albumin/Globulin Ratio 0.9 (1.0-1.7) Microbiology 04/11/17 Urine Culture - Final, Complete 04/11/17 Urine Culture Result 1 (CLAUDIO) - Final, Complete Medications Current Medications Ondansetron HCl (Zofran) 4 mg PRN Q4HRS PRN IV NAUSEA/VOMITING; Start 04/11/17 at 17:15; Stop 04/12/17 at 17:14; Status DC Morphine Sulfate (Morphine 2mg Syringe) 2 mg PRN Q2HR PRN IV PAIN; Start at 17:15; Stop 04/11/17 at 18:33; Status DC Aspirin (Children'S Aspirin) 324 mg 1X ONCE PO Last administered on 04/11/17 17:40; Start 04/11/17 at 18:00; Stop 04/11/17 at 18:02; Status DC Furosemide (Lasix) 40 mg 1X ONCE IVP Last administered on 04/11/17 21:33; Start 04/11/17 at 19:15; Stop 04/11/17 at 19:16; Status DC Acetaminophen (Tylenol) 650 mg PRN Q6HRS PRN PO PAIN Last administered on 01:19; Start 04/11/17 at 18:45 Allopurinol (Zyloprim) 100 mg DAILY PO Last administered on 04/15/17 10:31; Start 04/12/17 at 09:00 Alprazolam (Xanax) 0.25 mg PRN TID PRN PO ANXIETY / AGITATION Last administered on 04/16/17 01:19; Start 04/11/17 at 18:45 Amlodipine Besylate (Norvasc) 10 mg DAILY PO Last administered on 04/15/17 10: 30; Start 04/12/17 at 09:00 Apixaban (Eliquis) 2.5 mg BID PO Last administered on 04/15/17 20:59; Start at 21:00 Atorvastatin Calcium (Lipitor) 10 mg HS PO Last administered on 04/15/17 20:59 ; Start 04/11/17 at 21:00 Furosemide (Lasix) 40 mg DAILY PO Last administered on 04/13/17 08:03; Start 04/12/17 at 09:00; Stop 04/13/17 at 13:13; Status DC Glimepiride (Amaryl) 4 mg DAILY PO Last administered on 04/15/17 10:26; Start 04/12/17 at 09:00 Albuterol Sulfate (Ventolin) 2.5 mg PRN Q6HRS PRN NEB SOA; Start 04/11/17 at 19: 00 Magnesium Oxide (Magnesium Oxide) 400 mg DAILY PO Last administered on 10:28; Start 04/12/17 at 09:00 Meclizine HCl (Antivert) 25 mg PRN TID PRN PO DIZZINESS Last administered on 21:40; Start 04/11/17 at 18:45 Metolazone (Zaroxolyn) 2.5 mg 3X/WEEK PO Last administered on 04/15/17 10:33; Start 04/13/17 at 09:00 Metoprolol Tartrate (Lopressor) 25 mg BID PO Last administered on 04/15/17 20: 59; Start 04/11/17 at 21:00 Nitroglycerin (Nitrostat) 0.4 mg PRN Q5MIN PRN SL CHEST PAIN; Start 04/11/17 at 18:45 Senna/Docusate Sodium (Senna Plus) 1 tab BID PO Last administered on 04/14/17 21:40; Start 04/11/17 at 21:00 Vitamin D (Vitamin D3) 5,000 unit WEEKLY PO ; Start 04/18/17 at 09:00 Pantoprazole Sodium (Protonix) 40 mg DAILYAC PO Last administered on 04/16/17 08:09; Start 04/12/17 at 07:30 Insulin Detemir (Levemir) 20 units QHS SQ Last administered on 04/15/17 20:55 ; Start 04/11/17 at 21:00 Metoprolol Tartrate (Lopressor) 25 mg BID PO ; Start 04/12/17 at 09:00; Stop 05/19 at 09:00; Status DC Insulin Aspart (NovoLOG) 0-7 UNITS QIDACHS SQ Last administered on 04/16/17 08 :10; Start 04/11/17 at 21:00 Dextrose 12.5 gm PRN Q15MIN PRN IV SEE COMMENTS; Start 04/11/17 at 18:45 Albuterol/ Ipratropium (Duoneb) 3 ml 1X ONCE NEB Last administered on 09:59; Start 04/12/17 at 09:45; Stop 04/12/17 at 09:46; Status DC Albuterol/ Ipratropium (Duoneb) 3 ml [id number] NEB Last administered on 04/15/17 10:50; Start 04/12/17 at 16:00; Stop 04/15/17 at 16:09; Status DC Methylprednisolone Sodium Succinate (SOLU-Medrol 40MG VIAL) 30 mg 1X ONCE IV Last administered on 04/12/17 12:31; Start 04/12/17 at 10:00; Stop 04/12/17 at 10:01; Status DC Furosemide (Lasix) 40 mg DAILY IVP Last administered on 04/15/17 10:28; Start 04/14/17 at 09:00 Isosorbide Mononitrate (Imdur) 30 mg DAILY PO Last administered on 04/15/17t 10 :27; Start 04/15/17 at 09:00 Methylprednisolone (Medrol) 8 mg BID PO ; Start 04/14/17 at 09:00; Stop at 21:01; Status UNV Methylprednisolone (Medrol) 4 mg BIDPCLD PO ; Start 04/14/17 at 12:30; Stop 07/19 at 17:31; Status UNV Methylprednisolone (Medrol) 4 mg TIDPC PO ; Start 04/15/17 at 08:30; Stop at 17:31; Status UNV Methylprednisolone (Medrol) 8 mg QHS PO ; Start 04/15/17 at 21:00; Stop at 21:01; Status UNV Methylprednisolone (Medrol) 4 mg QIDAFTMEAL PO ; Start 04/16/17 at 09:00; Stop 04/16/17 at 21:01; Status UNV Methylprednisolone (Medrol) 4 mg TID PO ; Start 04/17/17 at 09:00; Stop at 21:01; Status UNV Methylprednisolone (Medrol) 4 mg BID PO ; Start 04/18/17 at 09:00; Stop at 21:01; Status UNV Methylprednisolone (Medrol) 4 mg DAILY PO ; Start 04/19/17 at 09:00; Stop at 09:01; Status UNV Methylprednisolone (Medrol) 4 mg TIDPC PO ; Start 04/15/17 at 08:30; Stop at 17:31; Status UNV Methylprednisolone (Medrol) 8 mg QHS PO ; Start 04/15/17 at 21:00; Stop at 21:01; Status UNV Methylprednisolone (Medrol) 4 mg QIDAFTMEAL PO ; Start 04/16/17 at 09:00; Stop 04/16/17 at 21:01; Status UNV Methylprednisolone (Medrol) 4 mg TID PO ; Start 04/17/17 at 09:00; Stop at 21:01; Status UNV Methylprednisolone (Medrol) 4 mg BID PO ; Start 04/18/17 at 09:00; Stop at 21:01; Status UNV Methylprednisolone (Medrol) 4 mg DAILY PO ; Start 04/19/17 at 09:00; Stop at 09:01; Status UNV Methylprednisolone (Medrol) 8 mg BID PO Last administered on 04/15/17 21:00; Start 04/15/17 at 09:00; Stop 04/15/17 at 21:01; Status DC Methylprednisolone (Medrol) 4 mg BIDPCLD PO Last administered on 04/15/17 17: 18; Start 04/15/17 at 12:30; Stop 04/15/17 at 17:31; Status DC Methylprednisolone (Medrol) 4 mg TIDPC PO Last administered on 04/16/17 08:08 ; Start 04/16/17 at 08:30; Stop 04/16/17 at 17:31 Methylprednisolone (Medrol) 8 mg QHS PO ; Start 04/16/17 at 21:00; Stop at 21:01 Methylprednisolone (Medrol) 4 mg QIDAFTMEAL PO ; Start 04/17/17 at 09:00; Stop 04/17/17 at 21:01 Methylprednisolone (Medrol) 4 mg TID PO ; Start 04/18/17 at 09:00; Stop at 21:01 Methylprednisolone (Medrol) 4 mg BID PO ; Start 04/19/17 at 09:00; Stop at 21:01 Methylprednisolone (Medrol) 4 mg DAILY PO ; Start 04/20/17 at 09:00; Stop at 09:01 Albuterol/ Ipratropium (Duoneb) 3 ml BID NEB Last administered on 04/15/17 21: 00; Start 04/15/17 at 21:00 Trazodone HCl (Desyrel) 50 mg QHS PO Last administered on 04/15/17 20:59; Start 04/15/17 at 21:00 Active Scripts Active Allopurinol 100 Mg Tablet 1 Tab PO DAILY Metolazone 2.5 Mg Tablet 2.5 Mg PO 2XWEEK 90 Days Amlodipine Besylate 5 Mg Tablet 10 Mg PO DAILY 90 Days LAST DOSE GIVEN: DATE: 01/01/17 TIME: 0900 NEXT DOSE DUE: DATE: 01/02/17 TIME: 0900 Reported Meclizine Hcl 25 Mg Tablet 1 Tab PO PRN TID Take as prescribed when needed Duoneb 0.5-3(2.5) Mg/3 Ml (Albuterol/Ipratropium) 3 Ml Ampul.neb 3 Ml NEB PRN Q6HRS PRN Dexilant (Dexlansoprazole) 60 Mg Cap. 1 Cap PO DAILY Take tomorrow morning Atorvastatin Calcium 10 Mg Tablet 1 Tab PO HS LAST DOSE GIVEN: DATE: 04/06/17 TIME: 9 PM NEXT DOSE DUE: DATE: 04/07/17 TIME: 9 PM Tylenol (Acetaminophen) 325 Mg Tablet 2 Tab PO PRN Q6HRS PRN Take as directed when needed Senokot-S Tablet (Sennosides/Docusate Sodium) 1 Each Tablet 1 Tab PO BID LAST DOSE GIVEN: DATE: 04/07/17 TIME: 9 AM NEXT DOSE DUE: DATE: 04/07/17 TIME: 9 PM Bystolic (Nebivolol Hcl) 5 Mg Tablet 1 Tab PO HS LAST DOSE GIVEN: DATE: 04/06/17 TIME: 9 PM NEXT DOSE DUE: DATE: 04/07/17 TIME: 9 PM Magnesium Oxide 400 Mg Tablet 1 Tab PO DAILY Take tomorrow morning Glimepiride 4 Mg Tablet 1 Tab PO DAILY Take tomorrow morning Furosemide 40 Mg Tablet 1 Tab PO DAILY Take tomorrow morning Novolog Flexpen (Insulin Aspart) 100 Unit/1 Ml Insuln.pen 0-7 Unit SQ QIDACHS LAST DOSE GIVEN: DATE: 04/07/17 TIME: 1130 NEXT DOSE DUE: DATE: 04/07/17 TIME: 9 PM According to sliding scale NITROGLYCERIN SubLingual (Nitroglycerin) 0.4 Mg Tab.subl 0.4 Mg SL PRN Q5MIN PRN LAST DOSE GIVEN: DATE: No given in hospital TIME: NEXT DOSE DUE: DATE: as needed for chest pain TIME: Xanax (Alprazolam) 0.25 Mg Tablet 0.25 Mg PO PRN TID PRN Take as directed when needed DATE: 01/01/17 TIME: 2100 NEXT DOSE DUE: DATE: 01/02/17 TIME: 0900 Levemir (Insulin Detemir) 100 Unit/1 Ml Vial 20 Unit SQ HS LAST DOSE GIVEN: DATE: 04/06/17 TIME: 9 PM NEXT DOSE DUE: DATE: 04/07/17 TIME: 9 PM Eliquis (Apixaban) 2.5 Mg Tablet 2.5 Mg PO BID LAST DOSE GIVEN: DATE: 04/07/17 TIME: 9 AM NEXT DOSE DUE: DATE: 04/07/17 TIME: 9 PM Vitamin D (Cholecalciferol (Vitamin D3)) 2,000 Unit Capsule 5,000 Unit PO WEEKLY Continue taking on your weekly schedule DATE: 12/31/16 TIME: 0900 NEXT DOSE DUE: DATE:01/07/17 TIME: 0900 Metoprolol Tartrate 25 Mg Tablet 25 Mg PO BID LAST DOSE GIVEN: DATE: 04/07/17 TIME: 9 AM NEXT DOSE DUE: DATE: 04/07/17 TIME: 9 PM Vitals/I & O Vital Sign - Last 24 Hours 04/15/17 04/15/17 04/15/17 04/15/17 10:27 10:28 10:30 10:50 Pulse 64 64 64 B/P (MAP) 126/55 126/55 126/55 Pulse Ox 98 O2 Delivery Room Air 04/15/17 04/15/17 04/15/17 04/15/17 11:12 15:40 19:50 20:29 Temp 98.1 98.0 Pulse 67 70 Resp 20 20 B/P (MAP) 130/59 (82) 158/67 (97) 115/69 (84) Pulse Ox 95 100 100 O2 Delivery Room Air Room Air Room Air Room Air 04/15/17 04/15/17 04/15/17 04/16/17 20:59 21:44 22:53 01:18 Temp 97.8 97.7 Pulse 70 69 64 Resp 18 18 B/P (MAP) 115/69 129/70 (89) 136/71 (92) Pulse Ox 99 100 98 O2 Delivery Room Air Room Air Room Air 04/16/17 05:50 Temp 98.2 Pulse 69 Resp 20 B/P (MAP) 120/71 (87) Pulse Ox 97 O2 Delivery Room Air Intake and Output 04/16/17 04/16/17 04/17/17 15:00 23:00 07:00 Intake Total 480 ml Balance 480 ml CAROL ALLEN Jr, MD 04/20/17 1822: PROGRESS NOTES Assessment The patient was seen by Gabino Sullivan APRN and I have reviewed her findings and plan and agree with above. Due to staffing constraints, we did not have an attending available on this day to see the patient. Problems: GABINO SULLIVAN APRN Apr 16, 2017 09:49 CAROL ALLEN Jr, MD Apr 20, 2017 18:22
[2017-04-16] MEDS: FUROSEMIDE 40 MG/4 ML VIAL IVP SCH (11:05)
[2017-04-16] MEDS: MAGNESIUM OXIDE 400 MG TABLET PO SCH (11:07)
[2017-04-16] MEDS: ALLOPURINOL 100 MG TABLET. PO SCH (11:09)
[2017-04-16] MEDS: APIXABAN 2.5 MG TABLET PO SCH ×2 (11:10→20:24)
[2017-04-16] MEDS: SENNOSIDES/DOCUSATE 8.6/50MG TABLET. PO SCH ×2 (11:10→20:24)
[2017-04-16] MEDS: amLODIPine BESYLATE 10 MG TABLET PO SCH (11:11)
[2017-04-16] MEDS: ISOSORBIDE MONONITRATE ER 30 MG TAB.ER.24H PO SCH (11:12)
[2017-04-16] MEDS: METOPROLOL TART IMMED RELEASE 25 MG TABLET PO SCH ×2 (11:13→20:25)
[2017-04-16] MEDS: GLIMEPIRIDE 4 MG TABLET PO SCH (11:19)
[2017-04-16] MEDS: IPRATRPIUM/ALBUTEROL 0.5/2.5MG 3 ML NEBU. NEB SCH ×2 (11:42→21:35)
[2017-04-16] MEDS: traZODone 50 MG TABLET. PO SCH (20:24)
[2017-04-16] MEDS: ATORVASTATIN CALCIUM 10 MG TABLET. PO SCH (20:26)
[2017-04-16] MEDS: INSULIN DETEMIR 300 UNITS/3 ML INSULN.PEN. SQ SCH (20:39)
[2017-04-16] MEDS ORDERED: rOPINIRole 0.25 MG TABLET. PO SCH (21:00)
[2017-04-17 05:00] VITALS: BP 147/64
--- NOTE | 2017-04-17 06:02 | ACF ---
Admission Criteria Forms HEART FAILURE: COMMON COMPLICATIONS (Place 'X' for any and all applicable criteria): Ongoing inpatient care may be indicated for heart failure with 1 or more of the following (1)(2)(3)(4)(5)(6)(7)(8): [ ]I. New-onset heart failure [ ]II. Acute cardiac ischemia causing or associated with failure [ ]III. Ongoing need for care for primary condition requiring frequent therapy adjustments because of changes in cardiac function (eg, drug dosage changes for drugs that are renally metabolized) [X]IV. Complications of heart failure, including 1 or more of the following: [ ]a) Hemodynamic instability [ ]b) Pericardial effusion [ ]c) Symptomatic pleural effusion [ ]d) Hypoxemia [ ]e) Tachypnea [X]f) Dyspnea [ ]g) Syncope [ ]h) Altered mental status [ ]i) Acute renal insufficiency that is severe (reduction of more than 50% in estimated glomerular filtration rate from baseline) or progressive reduction of more than 25% in estimated glomerular filtration rate from baseline, with creatinine continuing to rise) [ ]j) Debilitating anasarca (eg tissue breakdown with infection, inability to void due to edema) (E) [ ]k) Clinically significant metabolic abnormalities due to heart failure (eg, new-onset metabolic acidosis) Extended stay may be needed until ALL of the following are present (1)(3)(18)(41 )(55) [ ]a) Hemodynamic stability [ ]b) Stable and effective diuretic regimen established (or patient on stable dialysis regimen if in chronic renal failure) [ ]c) Volume status acceptable on oral medication [ ]d) Breathing comfortably at rest [ ]e) Saturation of arterial oxygen greater than 90% or at acceptable baseline [ ]f) Pulmonary edema absent or improved [ ]g) Peripheral or sacral edema absent or improved [ ]h) Renal function stable and manageable at a lower level of care [ ]i) Complications (eg, pleural effusion) resolved or manageable at a lower level of care [ ]g) Patient or caregiver has received written discharge instructions or educational material addressing activity level, diet, discharge medications, follow-up appointment, weight monitoring, and what to do if symptoms worsen.(25)(26) The original [facility] [employer] content created by [facility] has been revised. The portions of the content which have been revised are identified through the use of italic text, and [facility] has neither reviewed nor approved the modified material.All other unmodified content is copyright [facility]. Please see references footnoted in the original [facility] edition 2015 Admission Criteria Met?: Yes YENNI SHAHID Apr 17, 2017 06:02
[2017-04-17 06:48] LABS: CALCIUM 8.5 mg/dL (8.5-10.1); CREATININE 2.1 mg/dL (0.6-1.0); POTASSIUM 4.7 mmol/L (3.5-5.1)
[2017-04-17] MEDS: PANTOPRAZOLE 40 MG TABLET. PO SCH (07:05)
--- NOTE | 2017-04-17 08:54 | PDOC ---
GABINO SULLIVAN [employer]ING [employer]EM[employer] 04/17/17 0853: PROGRESS NOTES Diagnosis Problem Problems Medical Problems: (1) Chest pain Status: Acute (2) CHF (congestive heart failure) Status: Acute (3) Shortness of breath Status: Acute Assessment We are seeing the patient for congestive heart failure 1. Congestive heart failure, chronic diastolic. Patient appears euvolemic at this time. Change lasix to oral. Not on NICHOLE/ARB due to chronic kidney disease. Plan to transfer to swing bed. 2. CAD - Chest tightness - [place] has been ruled out. Continue medical therapy. Will plan for evaluation post discharge. With her primary pediatric intensive physician 3. HTN - Controlled, continue current medications 4. HLD - Continue statin therapy Problems: Subjective She believes the chest tightness comes with swallowing and dryness. She is having a swallow study this morning. Shortness of breath and edema have improved. She denies palpitations. Objective Vital Signs Date Time Temp Pulse Resp B/P (MAP) Pulse Ox O2 Delivery O2 Flow Rate FiO2 04/17/17 08:20 Room Air 04/17/17 05:00 98.2 69 20 147/64 (91) 94 04/16/17 11:05 0.0 Abdomen: Normal bowel sounds, Soft, No tenderness Heart: Regular rate, Normal S1, Normal S2, No murmurs Extremities: No edema, Normal pulses General: Alert, Oriented X3, Cooperative HEENT: EOMI, Mucous membr. moist/pink Lungs: Clear to auscultation Psych/Mental Status: Mental status NL, Mood NL Review of Relevant I have reviewed the following items alisha (where applicable) has been applied. Labs Laboratory Tests Test 04/15/17 11:35 04/15/17 17:02 04/15/17 20:11 04/15/17 22:40 Glucose (Fingerstick) 225 mg/dL (70-99) 332 mg/dL (70-99) 379 mg/dL (70-99) 320 mg/dL (70-99) Test 04/16/17 06:08 04/16/17 07:26 04/16/17 11:42 04/16/17 16:34 White Blood Count 7.5 x10^3/uL (4.0-11.0) Red Blood Count 2.74 x10^6/uL (3.50-5.40) Hemoglobin 7.9 g/dL (12.0-15.5) Hematocrit 23.5 % (36.0-47.0) Mean Corpuscular Volume 86 fL (79-100) Mean Corpuscular Hemoglobin 29 pg (25-35) Mean Corpuscular Hemoglobin Concent 33 g/dL (31-37) Red Cell Distribution Width 15.1 % (11.5-14.5) Platelet Count 202 x10^3/uL (140-400) Neutrophils (%) (Auto) 84 % (31-73) Lymphocytes (%) (Auto) 12 % (24-48) Monocytes (%) (Auto) 3 % (0-9) Eosinophils (%) (Auto) 0 % (0-3) Basophils (%) (Auto) 0 % (0-3) Neutrophils # (Auto) 6.3 x10^3uL (1.8-7.7) Lymphocytes # (Auto) 0.9 x10^3/uL (1.0-4.8) Monocytes # (Auto) 0.3 x10^3/uL (0.0-1.1) Eosinophils # (Auto) 0.0 x10^3/uL (0.0-0.7) Basophils # (Auto) 0.0 x10^3/uL (0.0-0.2) Sodium Level 137 mmol/L (136-145) Potassium Level 4.9 mmol/L (3.5-5.1) Chloride Level 103 mmol/L (98-107) Carbon Dioxide Level 29 mmol/L (21-32) Anion Gap 5 (6-14) Blood Urea Nitrogen 47 mg/dL (7-20) Creatinine 2.0 mg/dL (0.6-1.0) Estimated GFR (Cockcroft-Gault) 28.6 BUN/Creatinine Ratio 24 (6-20) Glucose Level 293 mg/dL (70-99) Calcium Level 8.4 mg/dL (8.5-10.1) Total Bilirubin 0.3 mg/dL (0.2-1.0) Aspartate Amino Transf (AST/SGOT) 11 U/L (15-37) Alanine Aminotransferase (ALT/SGPT) 14 U/L (14-59) Alkaline Phosphatase 58 U/L (46-116) Total Protein 6.2 g/dL (6.4-8.2) Albumin 2.9 g/dL (3.4-5.0) Albumin/Globulin Ratio 0.9 (1.0-1.7) Glucose (Fingerstick) 282 mg/dL (70-99) 389 mg/dL (70-99) 293 mg/dL (70-99) Test 04/16/17 20:16 04/17/17 05:45 Glucose (Fingerstick) 324 mg/dL (70-99) Sodium Level 137 mmol/L (136-145) Potassium Level 4.7 mmol/L (3.5-5.1) Chloride Level 102 mmol/L (98-107) Carbon Dioxide Level 28 mmol/L (21-32) Anion Gap 7 (6-14) Blood Urea Nitrogen 54 mg/dL (7-20) Creatinine 2.1 mg/dL (0.6-1.0) Estimated GFR (Cockcroft-Gault) 27.0 Glucose Level 294 mg/dL (70-99) Calcium Level 8.5 mg/dL (8.5-10.1) Microbiology 04/11/17 Urine Culture - Final, Complete 04/11/17 Urine Culture Result 1 (CLAUDIO) - Final, Complete Medications Current Medications Ondansetron HCl (Zofran) 4 mg PRN Q4HRS PRN IV NAUSEA/VOMITING; Start 04/11/17 at 17:15; Stop 04/12/17 at 17:14; Status DC Morphine Sulfate (Morphine 2mg Syringe) 2 mg PRN Q2HR PRN IV PAIN; Start at 17:15; Stop 04/11/17 at 18:33; Status DC Aspirin (Children'S Aspirin) 324 mg 1X ONCE PO Last administered on 04/11/17 17:40; Start 04/11/17 at 18:00; Stop 04/11/17 at 18:02; Status DC Furosemide (Lasix) 40 mg 1X ONCE IVP Last administered on 04/11/17 21:33; Start 04/11/17 at 19:15; Stop 04/11/17 at 19:16; Status DC Acetaminophen (Tylenol) 650 mg PRN Q6HRS PRN PO PAIN Last administered on 20:24; Start 04/11/17 at 18:45 Allopurinol (Zyloprim) 100 mg DAILY PO Last administered on 04/16/17 11:09; Start 04/12/17 at 09:00 Alprazolam (Xanax) 0.25 mg PRN TID PRN PO ANXIETY / AGITATION Last administered on 04/16/17 01:19; Start 04/11/17 at 18:45 Amlodipine Besylate (Norvasc) 10 mg DAILY PO Last administered on 04/16/17 11: 11; Start 04/12/17 at 09:00 Apixaban (Eliquis) 2.5 mg BID PO Last administered on 04/16/17 20:24; Start at 21:00 Atorvastatin Calcium (Lipitor) 10 mg HS PO Last administered on 04/16/17 20:26 ; Start 04/11/17 at 21:00 Furosemide (Lasix) 40 mg DAILY PO Last administered on 04/13/17 08:03; Start 04/12/17 at 09:00; Stop 04/13/17 at 13:13; Status DC Glimepiride (Amaryl) 4 mg DAILY PO Last administered on 04/16/17 11:19; Start 04/12/17 at 09:00 Albuterol Sulfate (Ventolin) 2.5 mg PRN Q6HRS PRN NEB SOA; Start 04/11/17 at 19: 00 Magnesium Oxide (Magnesium Oxide) 400 mg DAILY PO Last administered on 11:07; Start 04/12/17 at 09:00 Meclizine HCl (Antivert) 25 mg PRN TID PRN PO DIZZINESS Last administered on 21:40; Start 04/11/17 at 18:45 Metolazone (Zaroxolyn) 2.5 mg 3X/WEEK PO Last administered on 04/15/17 10:33; Start 04/13/17 at 09:00 Metoprolol Tartrate (Lopressor) 25 mg BID PO Last administered on 04/16/17 20: 25; Start 04/11/17 at 21:00 Nitroglycerin (Nitrostat) 0.4 mg PRN Q5MIN PRN SL CHEST PAIN; Start 04/11/17 at 18:45 Senna/Docusate Sodium (Senna Plus) 1 tab BID PO Last administered on 04/16/17 20:24; Start 04/11/17 at 21:00 Vitamin D (Vitamin D3) 5,000 unit WEEKLY PO ; Start 04/18/17 at 09:00 Pantoprazole Sodium (Protonix) 40 mg DAILYAC PO Last administered on 04/17/17 07:05; Start 04/12/17 at 07:30 Insulin Detemir (Levemir) 20 units QHS SQ Last administered on 04/16/17 20:39 ; Start 04/11/17 at 21:00 Metoprolol Tartrate (Lopressor) 25 mg BID PO ; Start 04/12/17 at 09:00; Stop 05/19 at 09:00; Status DC Insulin Aspart (NovoLOG) 0-7 UNITS QIDACHS SQ Last administered on 04/16/17 12 :19; Start 04/11/17 at 21:00; Stop 04/16/17 at 12:26; Status DC Dextrose 12.5 gm PRN Q15MIN PRN IV SEE COMMENTS; Start 04/11/17 at 18:45 Albuterol/ Ipratropium (Duoneb) 3 ml 1X ONCE NEB Last administered on 09:59; Start 04/12/17 at 09:45; Stop 04/12/17 at 09:46; Status DC Albuterol/ Ipratropium (Duoneb) 3 ml [id number] NEB Last administered on 04/15/17 10:50; Start 04/12/17 at 16:00; Stop 04/15/17 at 16:09; Status DC Methylprednisolone Sodium Succinate (SOLU-Medrol 40MG VIAL) 30 mg 1X ONCE IV Last administered on 04/12/17 12:31; Start 04/12/17 at 10:00; Stop 04/12/17 at 10:01; Status DC Furosemide (Lasix) 40 mg DAILY IVP Last administered on 04/16/17 11:05; Start 04/14/17 at 09:00 Isosorbide Mononitrate (Imdur) 30 mg DAILY PO Last administered on 04/16/17 11 :12; Start 04/15/17 at 09:00 Methylprednisolone (Medrol) 8 mg BID PO ; Start 04/14/17 at 09:00; Stop at 21:01; Status UNV Methylprednisolone (Medrol) 4 mg BIDPCLD PO ; Start 04/14/17 at 12:30; Stop 07/19 at 17:31; Status UNV Methylprednisolone (Medrol) 4 mg TIDPC PO ; Start 04/15/17 at 08:30; Stop at 17:31; Status UNV Methylprednisolone (Medrol) 8 mg QHS PO ; Start 04/15/17 at 21:00; Stop at 21:01; Status UNV Methylprednisolone (Medrol) 4 mg QIDAFTMEAL PO ; Start 04/16/17 at 09:00; Stop 04/16/17 at 21:01; Status UNV Methylprednisolone (Medrol) 4 mg TID PO ; Start 04/17/17 at 09:00; Stop at 21:01; Status UNV Methylprednisolone (Medrol) 4 mg BID PO ; Start 04/18/17 at 09:00; Stop at 21:01; Status UNV Methylprednisolone (Medrol) 4 mg DAILY PO ; Start 04/19/17 at 09:00; Stop at 09:01; Status UNV Methylprednisolone (Medrol) 4 mg TIDPC PO ; Start 04/15/17 at 08:30; Stop at 17:31; Status UNV Methylprednisolone (Medrol) 8 mg QHS PO ; Start 04/15/17 at 21:00; Stop at 21:01; Status UNV Methylprednisolone (Medrol) 4 mg QIDAFTMEAL PO ; Start 04/16/17 at 09:00; Stop 04/16/17 at 21:01; Status UNV Methylprednisolone (Medrol) 4 mg TID PO ; Start 04/17/17 at 09:00; Stop at 21:01; Status UNV Methylprednisolone (Medrol) 4 mg BID PO ; Start 04/18/17 at 09:00; Stop at 21:01; Status UNV Methylprednisolone (Medrol) 4 mg DAILY PO ; Start 04/19/17 at 09:00; Stop at 09:01; Status UNV Methylprednisolone (Medrol) 8 mg BID PO Last administered on 04/15/17t 21:00; Start 04/15/17 at 09:00; Stop 04/15/17 at 21:01; Status DC Methylprednisolone (Medrol) 4 mg BIDPCLD PO Last administered on 04/15/17 17: 18; Start 04/15/17 at 12:30; Stop 04/15/17 at 17:31; Status DC Methylprednisolone (Medrol) 4 mg TIDPC PO Last administered on 04/16/17 17:16 ; Start 04/16/17 at 08:30; Stop 04/16/17 at 17:31; Status DC Methylprednisolone (Medrol) 8 mg QHS PO Last administered on 04/16/17 20:24; Start 04/16/17 at 21:00; Stop 04/16/17 at 21:01; Status DC Methylprednisolone (Medrol) 4 mg QIDAFTMEAL PO ; Start 04/17/17 at 09:00; Stop 04/17/17 at 21:01 Methylprednisolone (Medrol) 4 mg TID PO ; Start 04/18/17 at 09:00; Stop at 21:01 Methylprednisolone (Medrol) 4 mg BID PO ; Start 04/19/17 at 09:00; Stop at 21:01 Methylprednisolone (Medrol) 4 mg DAILY PO ; Start 04/20/17 at 09:00; Stop at 09:01 Albuterol/ Ipratropium (Duoneb) 3 ml BID NEB Last administered on 04/16/17 21: 35; Start 04/15/17 at 21:00 Trazodone HCl (Desyrel) 50 mg QHS PO Last administered on 04/16/17 20:24; Start 04/15/17 at 21:00 Insulin Aspart (NovoLOG) 0-9 UNITS QIDACHS SQ Last administered on 04/16/17 20 :39; Start 04/16/17 at 16:30 Ropinirole HCl (Requip) 0.25 mg QHS PO Last administered on 04/16/17 20:24; Start 04/16/17 at 21:00 Active Scripts Active Allopurinol 100 Mg Tablet 1 Tab PO DAILY Metolazone 2.5 Mg Tablet 2.5 Mg PO 2XWEEK 90 Days Amlodipine Besylate 5 Mg Tablet 10 Mg PO DAILY 90 Days LAST DOSE GIVEN: DATE: 01/01/17 TIME: 0900 NEXT DOSE DUE: DATE: 01/02/17 TIME: 0900 Reported Meclizine Hcl 25 Mg Tablet 1 Tab PO PRN TID Take as prescribed when needed Duoneb 0.5-3(2.5) Mg/3 Ml (Albuterol/Ipratropium) 3 Ml Ampul.neb 3 Ml NEB PRN Q6HRS PRN Dexilant (Dexlansoprazole) 60 Mg Cap. 1 Cap PO DAILY Take tomorrow morning Atorvastatin Calcium 10 Mg Tablet 1 Tab PO HS LAST DOSE GIVEN: DATE: 04/06/17 TIME: 9 PM NEXT DOSE DUE: DATE: 04/07/17 TIME: 9 PM Tylenol (Acetaminophen) 325 Mg Tablet 2 Tab PO PRN Q6HRS PRN Take as directed when needed Senokot-S Tablet (Sennosides/Docusate Sodium) 1 Each Tablet 1 Tab PO BID LAST DOSE GIVEN: DATE: 04/07/17 TIME: 9 AM NEXT DOSE DUE: DATE: 04/07/17 TIME: 9 PM Bystolic (Nebivolol Hcl) 5 Mg Tablet 1 Tab PO HS LAST DOSE GIVEN: DATE: 04/06/17 TIME: 9 PM NEXT DOSE DUE: DATE: 04/07/17 TIME: 9 PM Magnesium Oxide 400 Mg Tablet 1 Tab PO DAILY Take tomorrow morning Glimepiride 4 Mg Tablet 1 Tab PO DAILY Take tomorrow morning Furosemide 40 Mg Tablet 1 Tab PO DAILY Take tomorrow morning Novolog Flexpen (Insulin Aspart) 100 Unit/1 Ml Insuln.pen 0-7 Unit SQ QIDACHS LAST DOSE GIVEN: DATE: 04/07/17 TIME: 1130 NEXT DOSE DUE: DATE: 04/07/17 TIME: 9 PM According to sliding scale NITROGLYCERIN SubLingual (Nitroglycerin) 0.4 Mg Tab.subl 0.4 Mg SL PRN Q5MIN PRN LAST DOSE GIVEN: DATE: No given in hospital TIME: NEXT DOSE DUE: DATE: as needed for chest pain TIME: Xanax (Alprazolam) 0.25 Mg Tablet 0.25 Mg PO PRN TID PRN Take as directed when needed DATE: 01/01/17 TIME: 2100 NEXT DOSE DUE: DATE: 01/02/17 TIME: 0900 Levemir (Insulin Detemir) 100 Unit/1 Ml Vial 20 Unit SQ HS LAST DOSE GIVEN: DATE: 04/06/17 TIME: 9 PM NEXT DOSE DUE: DATE: 04/07/17 TIME: 9 PM Eliquis (Apixaban) 2.5 Mg Tablet 2.5 Mg PO BID LAST DOSE GIVEN: DATE: 04/07/17 TIME: 9 AM NEXT DOSE DUE: DATE: 04/07/17 TIME: 9 PM Vitamin D (Cholecalciferol (Vitamin D3)) 2,000 Unit Capsule 5,000 Unit PO WEEKLY Continue taking on your weekly schedule DATE: 12/31/16 TIME: 0900 NEXT DOSE DUE: DATE:01/07/17 TIME: 0900 Metoprolol Tartrate 25 Mg Tablet 25 Mg PO BID LAST DOSE GIVEN: DATE: 04/07/17 TIME: 9 AM NEXT DOSE DUE: DATE: 04/07/17 TIME: 9 PM Vitals/I & O Vital Sign - Last 24 Hours 04/16/17 04/16/17 04/16/17 04/16/17 10:58 11:05 11:11 11:12 Temp 98.2 Pulse 61 72 72 72 Resp 20 20 B/P (MAP) 121/59 (79) 123/67 (85) 125/67 123/67 Pulse Ox 99 99 O2 Delivery Room Air Room Air O2 Flow Rate 0.0 04/16/17 04/16/17 04/16/17 04/16/17 11:13 11:43 16:03 19:40 Temp 98.3 Pulse 72 78 Resp 18 B/P (MAP) 123/67 111/58 (75) Pulse Ox 99 97 O2 Delivery Room Air Room Air Room Air 04/16/17 04/16/17 04/16/17 04/16/17 20:00 20:25 21:35 23:42 Temp 97.8 98.1 Pulse 76 76 60 Resp 18 20 B/P (MAP) 123/62 (82) 123/62 117/57 (77) Pulse Ox 97 99 94 O2 Delivery Room Air Room Air Room Air 04/17/17 04/17/17 05:00 08:20 Temp 98.2 Pulse 69 Resp 20 B/P (MAP) 147/64 (91) Pulse Ox 94 O2 Delivery Room Air Room Air PAUL FERRER MD 04/17/17 1245: PROGRESS NOTES Assessment I have participated in the care of this patient and I have reviewed and agree with all pertinent clinical information above including history, exam, and recommendations. Constitutional: Well developed, well nourished, no acute distress, non-toxic appearance. HENT: Normocephalic, atraumatic, bilateral external ears normal, oropharynx moist, no oral exudates, nose normal. Eyes: ABBY, EOMI, conjunctiva normal, no discharge. Neck: Normal range of motion, no tenderness, supple, no stridor. Cardiovascular: First and second heart sounds Thorax and Lungs: Chest is clear Abdomen: Bowel sounds normal, soft, no tenderness, no masses, no pulsatile masses. Skin: Warm, dry, no erythema, no rash. Back: No tenderness, no CVA tenderness. Extremities: Intact distal pulses, no tenderness, no cyanosis, no clubbing, ROM intact, mild pitting edema on the right . Neurologic: Alert and oriented X 3, normal motor function, normal sensory function, no focal deficits noted. Psychologic: Affect normal, judgement normal, mood normal. Impression Acute decompensated heart failure percent ejection fraction: She has improved. Agree with changing to PO diuretics consisting the metolazone. COPD: The chest is now much better Coronary disease: She's had a prior stent to theand has a 80% residual stenosis in the ostial circumflex which is being managed medically. She has had no further chest pain . Pulmonary hypertension: She has had mild pulmonary hypertension with a PA systolic pressure of 37 by her most recent echo in September 2016. It is possible that this is an underestimation. 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 Essential hypertension: Blood pressure under good control Hypercholesterolemia: We'll recently started her on atorvastatin Problems: CAROL ALLEN Jr, MD 04/20/171821: PROGRESS NOTES Assessment The patient was seen by Gabino Sullivan APRN and I have reviewed her findings and plan and agree with above. Due to staffing constraints, we did not have an attending available on this day to see the patient. Problems: GABINO SULLIVAN APRN Apr 17, 2017 08:53 PAUL FERRER MD Apr 17, 2017 12:45 CAROL ALLEN Jr, MD Apr 20, 2017 18:22
[2017-04-17] MEDS ORDERED: FUROSEMIDE 20 MG TABLET PO SCH (09:00)
[2017-04-17] MEDS ORDERED: methylPREDNISolone 4 MG TABLET. PO SCH ×2 (09:00)
[2017-04-17] MEDS: SENNOSIDES/DOCUSATE 8.6/50MG TABLET. PO SCH (09:00)
[2017-04-17] MEDS: APIXABAN 2.5 MG TABLET PO SCH (09:06)
[2017-04-17] MEDS: metOLazone 2.5 MG TABLET PO SCH (09:06)
[2017-04-17] MEDS: MAGNESIUM OXIDE 400 MG TABLET PO SCH (09:06)
[2017-04-17] MEDS: methylPREDNISolone 4 MG TABLET. PO SCH ×2 (09:06→13:05)
[2017-04-17] MEDS: GLIMEPIRIDE 4 MG TABLET PO SCH (09:07)
[2017-04-17] MEDS: ISOSORBIDE MONONITRATE ER 30 MG TAB.ER.24H PO SCH (09:07)
[2017-04-17] MEDS: ALLOPURINOL 100 MG TABLET. PO SCH (09:08)
[2017-04-17] MEDS: METOPROLOL TART IMMED RELEASE 25 MG TABLET PO SCH (09:17)
[2017-04-17] MEDS: amLODIPine BESYLATE 10 MG TABLET PO SCH (09:18)
[2017-04-17] MEDS: INSULIN ASPART 300 UNITS/3 ML INSULN.PEN SQ SCH ×3 (09:19→17:28)
[2017-04-17] MEDS: IPRATRPIUM/ALBUTEROL 0.5/2.5MG 3 ML NEBU. NEB SCH (09:26)
--- NOTE | 2017-04-17 10:55 | RAD ---
Examination: Esophagram History: History of dysphagia Comparison: None available Findings Patient was brought to the fluoroscopic suite. Patient was given oral thick and thin barium. There is normal peristalsis of the esophagus. No evidence of diverticula identified. However examination is limited as the examination was not completed due to patient's dizziness. On the visualized images there is only minimal distention of the laryngo-pharyngeal and upper esophageal region. Patient had difficulty initiating swallow. Impression: 1. Limited examination as examination was not completed due to patient dizziness. 2. On the visualized images , there is only minimal distention of the laryngo-pharyngeal and upper esophageal region. Patient had difficulty initiating swallow. Consider endoscopic evaluation to evaluate the laryngopharynx and upper esophagus. Total fluoroscopy time 1.2 minutes. Total fluoroscopy images 20.
--- NOTE | 2017-04-17 10:59 | RAD ---
Examination: Video swallow History: History of dysphagia to liquids Comparison: None available Findings: Patient was brought to fluoroscopy suite. Patient was given thin liquids, thick liquids and pudding consistency. There is no evidence of deep laryngeal penetration or aspiration identified. There is only minimal distention of the laryngopharynx below the level of the epiglottis. Patient had difficulty initiating swallow. Impression: 1. Difficulty initiating swallow. 2. Minimal distention of the laryngopharynx below the level of the epiglottis. Consider endoscopic evaluation. 3. Please see speech pathology report report for further details. Total fluoroscopy time 1 minute. No fluoroscopic Images were obtained.
[2017-04-17 11:00] VITALS: BP 125/63
[2017-04-17] MEDS: ACETAMINOPHEN 325 MG TABLET PO PRN (11:52)
--- NOTE | 2017-04-17 11:52 | NUR ---
Videoswallow evaluation completed. Please refer to full report in speech therapy section. Impressions: Mild oropharyngeal dysphagia w/ difficulty and effort to initiate swallow. Pt. appears at low risk of aspiration for all PO, however pt's struggle and initiation at time is a factor in eating/drinking. Etiology of swallowing deficit unknown at this time. Due to pt's notable hoarse vocal quality in addition to this onset of swallowing difficulty an ENT referral is recommended. Recommendations: 1. Regular diet/thin liquids or foods as preferred by pt. 2. Investigation into etiology of dysphagia and esophageal complaints; and ENT referral 3. Refer to Dr. Arguello's report (radiology) for additional information. 4. ST f/u for dysphagia
--- NOTE | 2017-04-17 15:02 | RAD ---
Examination: CT soft tissue neck with contrast History: History of dysphagia. Comparison: None available Technique: Axial CT soft tissue neck were performed without contrast. Coronal and sagittal reformats are performed. PQRS Compliance Statement: One or more of the following individualized dose reduction techniques were utilized for this examination: 1. Automated exposure control 2. Adjustment of the mA and/or kV according to patient size 3. Use of iterative reconstruction technique Findings: The visualized intracranial portion grossly appears unremarkable. The bilateral parotid glands, masticators spaces grossly appears unremarkable. The bilateral parapharyngeal spaces unremarkable No radiologically significant cervical lymphadenopathy identified. There is collapsed appearance of the left piriform sinus. There is mild thickening of the soft tissue in the region of the right arytenoid fold fold with some calcification. There is mild asymmetry of the vocal cords. The visualized thyroid gland grossly appears unremarkable Moderate aortic atherosclerosis The apical lungs are clear. There is medial deviation of the bilateral carotid arteries lying just below the mucosa in the laryngopharyngeal region. Anterior cervical fusion device with the intervertebral disc spacer are identified at C5-C6 vertebral levels. The bilateral facets are well aligned. Impression: 1. Mild thickening of the soft tissue in the region of the right arytenoid fold with some calcification,, nonspecific with collapsed appearance of the left piriform sinus. Endoscopic evaluation can be considered. 2. Medial tortuous carotid arteries.
[2017-04-17 16:27] VITALS: BP 179/63
--- NOTE | 2017-04-17 17:31 | NUR ---
Pt and daughter Elaine given discharge instructions, IV removed without incident, catheter tip intact, direct pressure applied, pt belongings, pt discharged to [facility]
[2017-04-17] MEDS ORDERED: ISOS30TA4 PO (20:00)
--- NOTE | 2017-04-17 23:57 | DS ---
DATE OF DISCHARGE: 04/17/2017 HOSPITAL COURSE: The patient is an 86-year-old female patient who was admitted on 04/12/2017, with increased shortness of breath and chest pressure and weight gain. She was extensively evaluated by the Cardiology team. She also complained of swelling of her right lower extremity and we did actually the venous Doppler ultrasound, which showed no evidence of deep vein thrombosis. She did have also pulmonary perfusion ventilation scan, which was read as low probability for pulmonary embolism. She was started on IV Lasix and did very well. She had an episode of acute gouty arthritis treated with tapering dose of steroids, as she has impaired kidney function and is not a candidate for nonsteroidals or colchicine and did very well with that. She did start complaining of also difficulty swallowing and she has had a video swallowing evaluation as well as CT scan of the soft tissue of the neck, which basically showed mild thickening of the soft tissue in the region of the right arytenoid fold with some calcifications, nonspecific with collapsed appearance with a soft piriform sinus. Endoscopic evaluation can be considered. The video swallowing evaluation showed that there is only minimal distention of the laryngopharyngeal and upper esophageal region. The patient had difficulty initiating swallow, considering endoscopic evaluation to evaluate laryngopharyngeal and upper esophagus area. We actually contacted [facility] and we have no ENT surgeons here or at [facility] and decision was made to discharge her to swing bed to continue with the process of physical and occupational therapy and arrange for her to be seen by an ENT surgeon upon discharge from the swing bed. PHYSICAL EXAMINATION: GENERAL: When I examined her today, she looked well and was clearly in no apparent respiratory distress, pale, no jaundice, cyanosis, or thyromegaly. No jugular venous distention. No limb edema. VITAL SIGNS: Her heart rate was 68, blood pressure 125/63, temperature was 98.2, respiratory rate was 20, and oxygen saturation was 94% on room air. HEAD, EYES, EARS, NOSE AND THROAT: Showed normocephalic, atraumatic. NECK: Supple. HEART: Showed normal first and second heart sounds with no gallop, rub or murmur. CHEST: Clear to auscultation. No crepitation or rhonchi. ABDOMEN: Distended, soft, nontender. No guarding or rigidity. No organomegaly. Hernial orifices intact. Bowel sounds normal. NEUROLOGIC: She was awake, alert, responding appropriately. Cranial nerves intact. EXTREMITIES: She moves extremities without difficulty. She ambulates with a walker with standby assist. LABORATORY DATA: Her lab work this morning showed a white cell count of 7500; hemoglobin 7.9; hematocrit 23.5; MCV 86 and platelet count of 202,000. Her chemistry showed a serum sodium of 137, potassium 4.7, chloride 102, bicarbonate 28, anion gap of 7, BUN 54, creatinine 2.1, estimated GFR was 27, glucose was 294, calcium was 8.5. Her prothrombin time was 10.3, INR 1, aPTT was 26. Her D-dimer was high at 2.09. Urinalysis was unremarkable. DISCHARGE MEDICATIONS: She was transferred to [facility] bed to continue on a tapering course of steroids as directed, vitamin D 5000 international units once a week, furosemide 40 mg once a day, Requip 0.25 mg at bedtime. She is on NovoLog insulin before meals, trazodone 50 mg at bedtime, albuterol/Atrovent by nebulizer twice a day, isosorbide mononitrate 30 mg once a day, metolazone 2.5 mg 3 times a week, magnesium oxide 400 mg daily, glimepiride 4 mg once a day, amlodipine 10 mg once a day, allopurinol 100 mg daily, Protonix 40 mg daily p.r.n., Levemir insulin 20 units at bedtime, Senna-S 1 tablet p.o. b.i.d., metoprolol tartrate 25 mg twice a day, atorvastatin 10 mg at bedtime, apixaban 2.5 mg twice a day, albuterol sulfate every 6 hours, nitroglycerin 0.4 mg sublingually every 5 minutes x 3 for chest pain, meclizine 25 mg 3 times a day, alprazolam 0.25 mg t.i.d., acetaminophen 650 mg every 6 hours as needed. FINAL DISCHARGE DIAGNOSES: 1. Acute decompensated diastolic congestive heart failure for which she was treated with IV Lasix and metolazone and swelling of her upper extremities is much, much improved. 2. Chronic obstructive pulmonary disease. The patient probably has been a secondhand smoker; however, ventilation/perfusion scan showed low probability for pulmonary embolism and a CT scan of the chest was unremarkable. 3. Pulmonary hypertension. 4. Coronary artery disease for which she had prior stent to the proximal left anterior descending. Most recent cardiac catheterization showed an 80% stenosis to the ostium and left circumflex, which was managed medically, Imdur 30 mg daily was added. 5. Hypertension, seems to be reasonably controlled. 6. Hypercholesterolemia for which she was started on statin. 7. Exertional chest tightness, likely related to congestive heart failure. Her troponins were negative. 8. She had bilateral lower extremity edema, right more than left, for which we started her on on IV Lasix and did have venous Doppler ultrasound, which was negative. 9. Chronic kidney disease, serum creatinine that is stable around 1.8 to 2 mg/dL. 10. Normochromic normocytic anemia, most likely due to chronic kidney disease. 11. Paroxysmal atrial fibrillation, rate controlled and she is now on apixaban and well anticoagulated. 12. Acute gouty arthritis for which she was treated with a tapering course of steroids. 13. Dysphagia for which we did video swallowing evaluation as well as CT scan of the soft tissue of the neck, which basically showed that she has mild thickening of the soft tissue in the region of the right arytenoid fold with some calcification, nonspecific with collapsed appearance of the left piriform sinus. Endoscopic evaluation could be considered. PLAN: To switch her to swing bed and arrange for her to be seen as an outpatient by an ENT surgeon upon discharge. JAMES MULTANI MD DR: ESTEPHANIA/deepak JOB#: [id number] / [id number]
[2017-04-18] MEDS ORDERED: CHOLECALCIFEROL (VITAMIN D3) 1,000 UNIT TABLET PO SCH (09:00)
[2017-04-18] MEDS ORDERED: methylPREDNISolone 4 MG TABLET. PO SCH ×3 (09:00)
[2017-04-19] MEDS ORDERED: methylPREDNISolone 4 MG TABLET. PO SCH ×3 (09:00)
[2017-04-20] MEDS ORDERED: methylPREDNISolone 4 MG TABLET. PO SCH (09:00)
[2017-04-23] MEDS ORDERED: METO2.5T PO (07:21)
[2017-04-23] MEDS ORDERED: LIDO700A39 TD (07:21)
[2017-04-23] MEDS ORDERED: PANT40TA5 PO (07:21)
[2017-04-23] MEDS ORDERED: ROPI0.25 PO (07:21)
[2017-04-23] MEDS ORDERED: TRAZ50TA15 PO (07:21)
== END 2017-04-17 16:00 | DRG 291 ==
LOC: ER 16:21 → ICU 17:52 → 1 SOUTH 04-15 14:11
PROVIDERS: ADMIT Family Medicine; ATTEND Family Medicine
DX: I13.0 Hypertensive heart and chronic kidney disease with heart failure and stage 1 through stage 4 chronic kidney disease, or unspecified chronic kidney disease (principal); I50.33 Acute on chronic diastolic (congestive) heart failure; N18.4 Chronic kidney disease, stage 4 (severe); I27.2 Other secondary pulmonary hypertension; E11.22 Type 2 diabetes mellitus with diabetic chronic kidney disease; J44.1 Chronic obstructive pulmonary disease with (acute) exacerbation; I48.0 Paroxysmal atrial fibrillation; R13.10 Dysphagia, unspecified; F32.9 Major depressive disorder, single episode, unspecified; G25.81 Restless legs syndrome; D63.1 Anemia in chronic kidney disease; E78.00 Pure hypercholesterolemia, unspecified; E78.5 Hyperlipidemia, unspecified; I25.10 Atherosclerotic heart disease of native coronary artery without angina pectoris; Z96.659 Presence of unspecified artificial knee joint; M10.9 Gout, unspecified; Z77.22 Contact with and (suspected) exposure to environmental tobacco smoke (acute) (chronic); R63.5 Abnormal weight gain; Z68.31 Body mass index [BMI] 31.0-31.9, adult; Z96.642 Presence of left artificial hip joint; Z82.49 Family history of ischemic heart disease and other diseases of the circulatory system; I25.2 Old myocardial infarction; Z90.49 Acquired absence of other specified parts of digestive tract; Z95.0 Presence of cardiac pacemaker; Z88.0 Allergy status to penicillin; Z88.8 Allergy status to other drugs, medicaments and biological substances; Z88.1 Allergy status to other antibiotic agents; Z79.01 Long term (current) use of anticoagulants; Z88.7 Allergy status to serum and vaccine; Z95.5 Presence of coronary angioplasty implant and graft; Z86.718 Personal history of other venous thrombosis and embolism; Z79.4 Long term (current) use of insulin; Z79.84 Long term (current) use of oral hypoglycemic drugs; Z79.899 Other long term (current) drug therapy
CPT/HCPCS: 36415; 70490; 71010; 71250; 73630; 74176; 74220; 74230; 78582; 80047; 80048; 80053; 80076; 81001; 82728; 82947; 83540; 83550; 83690; 83735; 83880; 84484; 84550; 85025; 85027; 85379; 85610; 85651; 85730; 86140; 87086; 87641; 93005; 93970; 93971; 94640; 96374; A9540; A9558; J1815; J1940; J2920; J7509; J7620; J8597; 92610; 92611; 97110; 97116; 97530; 97535; 99285-25

== ENCOUNTER 2017-04-16 08:34 | Inpatient (IN) | payer MEDICARE, OTHER ==
[~2017-04-16] VITALS: Ht 163.8 cm; Wt 84.8 kg
[2017-04-16] MEDS ORDERED: IPRATRPIUM/ALBUTEROL 0.5/2.5MG 3 ML NEBU. ONE (11:26)
--- NOTE | 2017-04-17 07:46 | PN ---
DATE: 04/16/2017 SUBJECTIVE: The patient is resting, slightly propped up in bed, and in no apparent distress. On questioning her, she did complain of dysphagia mostly liquid. She complained of restless legs syndrome. She could not sleep last night. Her pain on her throat has largely subsided. Swelling is much improved. PHYSICAL EXAMINATION: GENERAL: When I examined her, she was slightly pale, but no jaundice, cyanosis, or thyromegaly. No jugular venous distension. No limb edema. VITAL SIGNS: Her heart rate was 72, blood pressure 123/67, temperature was 98.2, respiratory rate 20, and oxygen saturation was 99%. HEAD, EYES, EARS, NOSE, AND THROAT: Normocephalic and atraumatic. NECK: Supple. HEART: Showed normal first and second heart sounds with no gallop, rub, or murmur. CHEST: Clear to auscultation. No wheezes or rhonchi. ABDOMEN: Distended, soft, and nontender. No guarding or rigidity. No organomegaly. Hernial orifices are intact. Bowel sounds normal. NEUROLOGIC: She is awake, alert, and responding appropriately. Cranial nerves are intact. She moves extremities without difficulty. She does ambulate with a walker. Her intake was 1050 and output was 530. LABORATORY DATA: Her lab work this morning showed white cell count 7500, hemoglobin 7.9, hematocrit 33.5, MCV 86, and platelet count 202,000. Her chemistry showed a serum sodium 137, potassium 4.9, chloride 103, bicarbonate 29, anion gap of 5, BUN 47, creatinine 2, and estimated GFR was 28 mL per minute. Her glucose was 193. Calcium was 8.4. Total bilirubin, AST, ALT, and alkaline phosphatase were normal. Total protein 6.2 and albumin 2.5. ASSESSMENT: 1. Acute decompensated diastolic congestive heart failure for which she is on IV Lasix and metolazone. She continued to have swelling in the right lower extremity, right more than left that is actually improving. 2. Chronic obstructive pulmonary disease. The patient herself denied any smoking. She has never smoked; however, she has been secondhand smoker. Her V/Q scan showed low probability for PE and her CT scan of the chest was unremarkable. 3. Pulmonary hypertension. 4. Coronary artery disease for which she has prior stent to the proximal left anterior descending. Most recent cardiac catheterization showed an 80% stenosis at the ostium of the left circumflex that was treated medically. Imdur 30 mg was added. 5. Hypertension, much better controlled. 6. Hypercholesterolemia for which she was started on statin. 7. Exertional chest tightness likely related to congestive heart failure. Her troponins were negative. 8. Bilateral lower extremity edema, right more than left for which we started her on IV Lasix and the venous Doppler ultrasound was negative. 9. Chronic kidney disease with a serum creatinine is stable around 1.8-2 mg/dL. 10. Normochromic and normocytic anemia most likely due to chronic kidney disease. 11. Paroxysmal atrial fibrillation, rate controlled. She is now on apixaban and well anticoagulated it. 12. Pain in her right big toe ____ flare up of gout for which we started her short tapering course of steroids and Medrol Dosepak. 13. Dysphagia. The patient stated that she has had esophageal stricture that was dilated before, but cannot remember when and where. We did consult the speech and language pathology to evaluate that and perhaps order barium swallow. 13. Restless legs syndrome for which I will start her on Requip. JAMES MULTANI MD DR: ESTEPHANIA/deepak JOB#: [id number] / [id number]
--- NOTE | 2017-04-17 18:30 | NUR ---
Pt admitted to group home unit 04/17/2017 for PT/OT d/t weakness for generalized strengthening. Cognitive: Pt is A&Ox4. Pt states that she is "Feeling much better." Pt is calm and cooperative with cares Pain: Pt denies any pain at this time Respiratory Status: Pt is on room air and remains up in chair throughout the day Skin: Dry and Intact, post surgical right hip revision site has healed and open to air ADL: Pt requires minimal assistance with all ADL, pt ambulates with walker to restroom, toilets herself, makes her bed, feeds and dresses herself unassisted. Pt got up made her bed, dressed herself and was seated in the chair waiting for breakfast this morning. Pt repositions herself when in bed. Pt is resting in her chair, call light within reach, no complaints
[2017-04-17] MEDS ORDERED: ALPRAZolam 0.25 MG TABLET PO PRN (20:00)
[2017-04-17] MEDS ORDERED: NITROGLYCERIN SUBLINGUAL 0.4 MG BOTTLE OF 25. SL PRN (20:00)
[2017-04-17] MEDS ORDERED: ISOS30TA4 PO (20:00)
[2017-04-17 20:11] VITALS: BP 129/67
[2017-04-17] MEDS ORDERED: DEXTROSE 50% 25 GM / 50ML DISP.SYRIN. IV PRN (20:15)
[2017-04-17] MEDS ORDERED: MECLIZINE 12.5 MG TABLET. PO PRN (20:45)
[2017-04-17] MEDS: IPRATRPIUM/ALBUTEROL 0.5/2.5MG 3 ML NEBU. NEB SCH (20:53)
--- NOTE | 2017-04-17 20:55 | NUR ---
Patients HS blood sugar was 433, called Dr. Lynn. He said to increase her levemir to 25 units and to hold HS novolog. New orders noted. Will continue to monitor.
[2017-04-17] MEDS ORDERED: NON FORMULARY ITEM (Nebivolol Hcl (Bystolic) 1 TAB) PO SCH (21:00)
[2017-04-17] MEDS ORDERED: methylPREDNISolone 4 MG TABLET. PO SCH (21:00)
[2017-04-17] MEDS ORDERED: INSULIN DETEMIR 300 UNITS/3 ML INSULN.PEN. SQ SCH (21:00)
[2017-04-17] MEDS: INSULIN ASPART 300 UNITS/3 ML INSULN.PEN SQ SCH (21:00)
[2017-04-17] MEDS ORDERED: ALBUTEROL SULFATE 2.5 MG/3 ML NEBU. NEB PRN (21:00)
[2017-04-17] MEDS: traZODone 50 MG TABLET. PO SCH (21:02)
[2017-04-17] MEDS: APIXABAN 2.5 MG TABLET PO SCH (21:02)
[2017-04-17] MEDS: ATORVASTATIN CALCIUM 10 MG TABLET. PO SCH (21:02)
[2017-04-17] MEDS: METOPROLOL TART IMMED RELEASE 25 MG TABLET PO SCH (21:03)
[2017-04-17] MEDS: SENNOSIDES/DOCUSATE 8.6/50MG TABLET. PO SCH (21:06)
[2017-04-17] MEDS: INSULIN DETEMIR 300 UNITS/3 ML INSULN.PEN. SQ SCH (21:08)
--- NOTE | 2017-04-18 02:24 | NUR ---
Pt admitted to senior care unit 04/17/2017 for PT/OT d/t weakness for generalized strengthening. Admitted from the ICU unit, prior to that she was living at home. Cognitive: Pt is A&Ox4. Pt states that she is "Feeling much better." Pt is calm and cooperative with cares. Pain: Pt denies any pain at this time. Respiratory Status: Patient is on room air and lungs are clear. Skin: Dry and Intact, post surgical right hip revision site has healed and open to air. ADL: Pt requires minimal assistance with all ADL, pt ambulates with walker to restroom, toilets herself, patient is able to dress her self. Patient is continent of bowel and bladder. Last BM was on 04/17. Refused HS snack. PT/OT consulted.
[2017-04-18 05:26] VITALS: BP 138/58
[2017-04-18] MEDS: SENNOSIDES/DOCUSATE 8.6/50MG TABLET. PO SCH ×2 (08:14→20:42)
[2017-04-18] MEDS: APIXABAN 2.5 MG TABLET PO SCH ×2 (08:14→20:42)
[2017-04-18] MEDS: MAGNESIUM OXIDE 400 MG TABLET PO SCH (08:14)
[2017-04-18] MEDS: GLIMEPIRIDE 2 MG TABLET PO SCH (08:14)
[2017-04-18] MEDS: PANTOPRAZOLE 40 MG TABLET. PO SCH (08:14)
[2017-04-18] MEDS: METOPROLOL TART IMMED RELEASE 25 MG TABLET PO SCH ×2 (08:15→20:42)
[2017-04-18] MEDS: amLODIPine BESYLATE 5 MG TABLET PO SCH (08:15)
[2017-04-18] MEDS: ALLOPURINOL 100 MG TABLET. PO SCH (08:15)
[2017-04-18] MEDS: FUROSEMIDE 40 MG TABLET PO SCH (08:16)
[2017-04-18] MEDS: methylPREDNISolone 4 MG TABLET. PO SCH ×3 (08:16→20:42)
[2017-04-18] MEDS: ISOSORBIDE MONONITRATE ER 30 MG TAB.ER.24H PO SCH (08:16)
[2017-04-18] MEDS: ACETAMINOPHEN 325 MG TABLET PO PRN ×2 (08:19→20:42)
[2017-04-18] MEDS: INSULIN ASPART 300 UNITS/3 ML INSULN.PEN SQ SCH ×3 (08:25→16:57)
--- NOTE | 2017-04-18 08:52 | NUR ---
Pt doing well this morning. Does state she feels some shortness of air, but was trying to tidy up her room and make her bed. Swelling improved. Lung sounds clear but diminished. No other complaints. Will continue to monitor.
--- NOTE | 2017-04-18 08:54 | NUR ---
Pt admitted to residential unit 04/17/2017 for PT/OT d/t weakness for generalized strengthening. Admitted from the ICU unit, prior to that she was living at home. Cognitive: Pt is A&Ox4. Pt states that she is "Feeling some shortness of air." Pt is calm and cooperative with cares. Pain: Pt denies any pain at this time. Respiratory Status: Patient is on room air and lungs are clear. Skin: Dry and Intact, post surgical right hip revision site has healed and open to air. ADL: Pt requires minimal assistance with all ADL, pt ambulates with walker to restroom, toilets herself, patient is able to dress her self. Patient is continent of bowel and bladder. Last BM was on 04/17. PT/OT consulted.
[2017-04-18] MEDS ORDERED: CHOLECALCIFEROL (VITAMIN D3) 1,000 UNIT TABLET PO SCH (09:00)
[2017-04-18] MEDS ORDERED: FUROSEMIDE 40 MG TABLET PO SCH (09:00)
[2017-04-18] MEDS: IPRATRPIUM/ALBUTEROL 0.5/2.5MG 3 ML NEBU. NEB SCH ×2 (10:24→19:55)
[2017-04-18] MEDS ORDERED: DEXTROSE 50% 25 GM / 50ML DISP.SYRIN. IV PRN (12:30)
[2017-04-18 15:27] VITALS: BP 126/78
[2017-04-18 20:04] VITALS: BP 110/64
[2017-04-18] MEDS: rOPINIRole 0.25 MG TABLET. PO SCH (20:42)
[2017-04-18] MEDS: traZODone 50 MG TABLET. PO SCH (20:42)
[2017-04-18] MEDS: ATORVASTATIN CALCIUM 10 MG TABLET. PO SCH (20:42)
[2017-04-18] MEDS: INSULIN DETEMIR 300 UNITS/3 ML INSULN.PEN. SQ SCH (20:47)
--- NOTE | 2017-04-19 02:06 | NUR ---
Swing Bed Nursing Note Nursing Problem: Pt admitted to snf unit 04/17/2017 for PT/OT d/t weakness for generalized strengthening. Admitted from the ICU unit, prior to that she was living at home. Cognitive: Pt is A&Ox4. Pt states that she is "Feeling some shortness of air." Pt is calm and cooperative with cares. Pain: Pt denies any pain at this time. Respiratory Status: Patient is on room air and lungs are clear. Skin: Dry and Intact, post surgical right hip revision site has healed and open to air. ADL: Pt requires minimal assistance with all ADL, pt ambulates with walker to restroom, toilets herself, patient is able to dress her self. Patient is continent of bowel and bladder. Last BM was on 04/17. PT/OT consulted.
[2017-04-19 05:57] LABS: BASO % 0 % (0-3); EOS % 1 % (0-3); HEMOGLOBIN 8.4 g/dL (12.0-15.5); LYMPH # 1.3 x10^3/uL (1.0-4.8); LYMPH % 16 % (24-48); MEAN CORPUSCULAR HEMOGLOBIN 29 pg (25-35); MEAN CORPUSCULAR HGB CONC 34 g/dL (31-37); MEAN CORPUSCULAR VOLUME 86 fL (79-100); MONO # 0.6 x10^3/uL (0.0-1.1); MONO % 8 % (0-9); NEUT # 6.1 x10^3uL (1.8-7.7); NEUT % 75 % (31-73); PLATELET COUNT 204 x10^3/uL (140-400); RED BLOOD COUNT 2.92 x10^6/uL (3.50-5.40); RED CELL DISTRIBUTION WIDTH 15.6 % (11.5-14.5)
[2017-04-19 06:20] LABS: ALBUMIN 3.2 g/dL (3.4-5.0); CALCIUM 8.4 mg/dL (8.5-10.1); CREATININE 2.1 mg/dL (0.6-1.0); POTASSIUM 4.1 mmol/L (3.5-5.1); TOTAL BILIRUBIN 0.2 mg/dL (0.2-1.0); TOTAL PROTEIN 6.5 g/dL (6.4-8.2)
[2017-04-19] MEDS: PANTOPRAZOLE 40 MG TABLET. PO SCH (07:43)
[2017-04-19] MEDS: INSULIN ASPART 300 UNITS/3 ML INSULN.PEN SQ SCH ×3 (07:45→16:31)
[2017-04-19] MEDS: FUROSEMIDE 40 MG TABLET PO SCH (08:23)
[2017-04-19] MEDS: methylPREDNISolone 4 MG TABLET. PO SCH ×2 (08:23→19:51)
[2017-04-19] MEDS: MAGNESIUM OXIDE 400 MG TABLET PO SCH (08:23)
[2017-04-19] MEDS: APIXABAN 2.5 MG TABLET PO SCH ×2 (08:23→19:51)
[2017-04-19] MEDS: amLODIPine BESYLATE 5 MG TABLET PO SCH (08:23)
[2017-04-19] MEDS: SENNOSIDES/DOCUSATE 8.6/50MG TABLET. PO SCH ×2 (08:23→19:54)
[2017-04-19] MEDS: GLIMEPIRIDE 2 MG TABLET PO SCH (08:23)
[2017-04-19] MEDS: ALLOPURINOL 100 MG TABLET. PO SCH (08:24)
[2017-04-19] MEDS: METOPROLOL TART IMMED RELEASE 25 MG TABLET PO SCH ×2 (08:24→19:53)
[2017-04-19] MEDS: ISOSORBIDE MONONITRATE ER 30 MG TAB.ER.24H PO SCH (08:24)
[2017-04-19] MEDS: IPRATRPIUM/ALBUTEROL 0.5/2.5MG 3 ML NEBU. NEB SCH ×2 (09:00→20:22)
--- NOTE | 2017-04-19 09:10 | NUR ---
Swing Bed Nursing Note Nursing Problem: Pt [facility] to prison unit 04/17/2017 for PT/OT d/t weakness for generalized strengthening. Admitted from the ICU unit, prior to that she was living at home. Cognitive: Pt is A&Ox4. Pt states that she is "Doing well!". Pt is calm and cooperative with cares. Pain: Pt denies any pain at this time. Respiratory Status: Patient is on room air and lungs are clear. Skin: Dry and Intact, post surgical right hip revision site has healed and open to air. ADL: Pt requires minimal assistance with all ADL, pt ambulates with walker to restroom, toilets herself, patient is able to dress her self. Patient is continent of bowel and bladder. Last BM was on 04/19. PT/OT consulted. Assist with set up for shower.
[2017-04-19 10:29] VITALS: BP 144/69
[2017-04-19] MEDS: ACETAMINOPHEN 325 MG TABLET PO PRN (14:53)
[2017-04-19 18:03] VITALS: BP 116/61
[2017-04-19] MEDS: rOPINIRole 0.25 MG TABLET. PO SCH (19:52)
[2017-04-19] MEDS: traZODone 50 MG TABLET. PO SCH (19:52)
[2017-04-19] MEDS: ATORVASTATIN CALCIUM 10 MG TABLET. PO SCH (19:53)
[2017-04-19] MEDS: INSULIN DETEMIR 300 UNITS/3 ML INSULN.PEN. SQ SCH (19:58)
--- NOTE | 2017-04-20 01:26 | NUR ---
Swing Bed Nursing Note Nursing Problem: Pt admitted to long term unit 04/17/2017 for PT/OT d/t weakness for generalized strengthening. Admitted from the ICU unit, prior to that she was living at home. Cognitive: Pt is A&Ox4. Pt states that she is feeling great. Pt is calm and cooperative with cares. Pain: Pt denies any pain at this time. Respiratory Status: Patient is on room air and lungs are clear. Skin: Dry and Intact, post surgical right hip revision site has healed and open to air. ADL: Pt requires minimal assistance with all ADL, pt ambulates with walker to restroom, toilets herself, patient is able to dress her self. Patient is continent of bowel and bladder. Last BM was on 04/19. PT/OT consulted.
[2017-04-20 06:05] VITALS: BP 121/68
--- NOTE | 2017-04-20 07:12 | NUR ---
Swing Bed Nursing Note Nursing Problem: Pt admitted to assisted unit 04/17/2017 for PT/OT d/t weakness for generalized strengthening. Admitted from the ICU unit, prior to that she was living at home. Cognitive: Pt is A&Ox4. Pt states that she is feeling great. Pt is calm and cooperative with cares. Pain: Pt denies any pain at this time. Respiratory Status: Patient is on room air and lungs are clear. Skin: Dry and Intact, post surgical right hip revision site has healed and open to air. ADL: Pt requires minimal assistance with all ADL, pt ambulates with walker to restroom, toilets herself, patient is able to dress her self. Patient is continent of bowel and bladder. Last BM was on 04/19. PT/OT consulted.
[2017-04-20] MEDS: INSULIN ASPART 300 UNITS/3 ML INSULN.PEN SQ SCH ×3 (07:30→17:17)
[2017-04-20] MEDS: MAGNESIUM OXIDE 400 MG TABLET PO SCH (08:08)
[2017-04-20] MEDS: METOPROLOL TART IMMED RELEASE 25 MG TABLET PO SCH ×2 (08:08→21:01)
[2017-04-20] MEDS: ISOSORBIDE MONONITRATE ER 30 MG TAB.ER.24H PO SCH (08:08)
[2017-04-20] MEDS: GLIMEPIRIDE 2 MG TABLET PO SCH (08:09)
[2017-04-20] MEDS: ALLOPURINOL 100 MG TABLET. PO SCH (08:09)
[2017-04-20] MEDS: metOLazone 2.5 MG TABLET PO SCH (08:09)
[2017-04-20] MEDS: APIXABAN 2.5 MG TABLET PO SCH ×2 (08:09→21:01)
[2017-04-20] MEDS: FUROSEMIDE 40 MG TABLET PO SCH (08:10)
[2017-04-20] MEDS: PANTOPRAZOLE 40 MG TABLET. PO SCH (08:10)
[2017-04-20] MEDS: amLODIPine BESYLATE 5 MG TABLET PO SCH (08:10)
[2017-04-20] MEDS: SENNOSIDES/DOCUSATE 8.6/50MG TABLET. PO SCH ×2 (08:13→21:01)
[2017-04-20] MEDS ORDERED: methylPREDNISolone 4 MG TABLET. PO SCH (09:00)
[2017-04-20] MEDS: IPRATRPIUM/ALBUTEROL 0.5/2.5MG 3 ML NEBU. NEB SCH ×2 (10:55→20:27)
[2017-04-20 20:58] VITALS: BP 166/72
[2017-04-20] MEDS: INSULIN DETEMIR 300 UNITS/3 ML INSULN.PEN. SQ SCH (20:59)
[2017-04-20] MEDS: rOPINIRole 0.25 MG TABLET. PO SCH (21:00)
[2017-04-20] MEDS: ACETAMINOPHEN 325 MG TABLET PO PRN (21:00)
[2017-04-20] MEDS: ATORVASTATIN CALCIUM 10 MG TABLET. PO SCH (21:01)
[2017-04-20] MEDS: traZODone 50 MG TABLET. PO SCH (21:01)
--- NOTE | 2017-04-21 04:47 | NUR ---
Pt reporting feeling weak this morning, checked blood sugar: 61. Pt given orange juice, milk and a cereal bar.
[2017-04-21 04:52] VITALS: BP 100/62
--- NOTE | 2017-04-21 05:23 | NUR ---
Swing Bed Nursing Note Nursing Problem: Pt admitted to half-way unit 04/17/2017 for PT/OT d/t weakness for generalized strengthening. Admitted from the ICU unit, prior to that she was living at home. Cognitive: Pt is A&Ox4. Pt is calm and cooperative with cares. Pain: Pt denies any pain at this time. Respiratory Status: Patient is on room air and lungs are clear. Skin: Dry and Intact, post surgical right hip revision site has healed and open to air. ADL: Pt requires minimal assistance with all ADL, pt ambulates with walker to restroom, toilets herself, patient is able to dress her self. Patient is continent of bowel and bladder. Last BM was on 04/20. PT/OT consulted.
[2017-04-21] MEDS: INSULIN ASPART 300 UNITS/3 ML INSULN.PEN SQ SCH ×3 (07:30→16:30)
[2017-04-21] MEDS: MAGNESIUM OXIDE 400 MG TABLET PO SCH (08:09)
[2017-04-21] MEDS: ALLOPURINOL 100 MG TABLET. PO SCH (08:09)
[2017-04-21] MEDS: ISOSORBIDE MONONITRATE ER 30 MG TAB.ER.24H PO SCH (08:10)
[2017-04-21] MEDS: amLODIPine BESYLATE 5 MG TABLET PO SCH (08:10)
[2017-04-21] MEDS: PANTOPRAZOLE 40 MG TABLET. PO SCH (08:10)
[2017-04-21] MEDS: SENNOSIDES/DOCUSATE 8.6/50MG TABLET. PO SCH ×2 (08:11→20:15)
[2017-04-21] MEDS: GLIMEPIRIDE 2 MG TABLET PO SCH (08:11)
[2017-04-21] MEDS: METOPROLOL TART IMMED RELEASE 25 MG TABLET PO SCH ×2 (08:11→20:22)
[2017-04-21] MEDS: FUROSEMIDE 40 MG TABLET PO SCH (08:11)
[2017-04-21] MEDS: APIXABAN 2.5 MG TABLET PO SCH ×2 (08:11→20:15)
[2017-04-21] MEDS: ACETAMINOPHEN 325 MG TABLET PO PRN (08:17)
[2017-04-21] MEDS: IPRATRPIUM/ALBUTEROL 0.5/2.5MG 3 ML NEBU. NEB SCH ×2 (10:21→21:00)
[2017-04-21 11:32] VITALS: BP 108/68
[2017-04-21] MEDS: LIDOCAINE (700MG/PATCH) PATCH. TD SCH (16:25)
[2017-04-21 16:52] LABS: ALBUMIN 3.3 g/dL (3.4-5.0); CALCIUM 8.9 mg/dL (8.5-10.1); GFR 28.6; MAGNESIUM 2.1 mg/dL (1.8-2.4); TOTAL BILIRUBIN 0.2 mg/dL (0.2-1.0); TOTAL PROTEIN 6.7 g/dL (6.4-8.2)
[2017-04-21 17:14] LABS: BASO % 1 % (0-3); EOS # 0.2 x10^3/uL (0.0-0.7); EOS % 3 % (0-3); HEMATOCRIT 29.1 % (36.0-47.0); HEMOGLOBIN 9.5 g/dL (12.0-15.5); LYMPH % 23 % (24-48); MEAN CORPUSCULAR HEMOGLOBIN 28 pg (25-35); MEAN CORPUSCULAR HGB CONC 33 g/dL (31-37); MEAN CORPUSCULAR VOLUME 86 fL (79-100); MONO # 0.7 x10^3/uL (0.0-1.1); MONO % 8 % (0-9); NEUT # 5.6 x10^3uL (1.8-7.7); NEUT % 66 % (31-73); PLATELET COUNT 224 x10^3/uL (140-400); RED BLOOD COUNT 3.37 x10^6/uL (3.50-5.40); RED CELL DISTRIBUTION WIDTH 15.9 % (11.5-14.5); WHITE BLOOD COUNT 8.6 x10^3/uL (4.0-11.0)
[2017-04-21] MEDS: ATORVASTATIN CALCIUM 10 MG TABLET. PO SCH (20:15)
[2017-04-21] MEDS: rOPINIRole 0.25 MG TABLET. PO SCH (20:15)
[2017-04-21] MEDS: traZODone 50 MG TABLET. PO SCH (20:15)
[2017-04-21 20:21] VITALS: BP 121/65
[2017-04-21] MEDS: INSULIN DETEMIR 300 UNITS/3 ML INSULN.PEN. SQ SCH (20:25)
--- NOTE | 2017-04-21 20:50 | NUR ---
Swing Bed Nursing Note Nursing Problem: Pt admitted to [facility] unit 04/17/2017 for PT/OT d/t weakness for generalized strengthening. Admitted from the ICU unit, prior to that she was living at home. Cognitive: Pt is A&Ox4. Pt is calm and cooperative with cares. Pain: Lidocaine patches ordered today. Patient states it has helped the pain but pain is still there. Patient reports 3/10 pain in R saenz and between breasts. Patient describes the pain as tenderness. Lidocaine patches removed at 2049 as patient is going to bed. Respiratory Status: Patient is on room air and lungs are clear and diminished. Skin: Dry and Intact, post surgical right hip revision site has healed and open to air. ADL: Pt requires minimal assistance with all ADL, pt ambulates with walker to restroom, toilets herself, patient is able to dress her self. Patient is continent of bowel and bladder. Last BM was on 04/20. PT/OT consulted.
[2017-04-22 06:06] VITALS: BP 130/69
--- NOTE | 2017-04-22 07:15 | RAD ---
Chest, 2 views, 04/21/2017: History: Shortness of breath Comparison is made to a study from 04/11/2017. 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 The heart size and pulmonary vascularity are normal. There is calcific plaquing of the aorta. No pulmonary infiltrate is seen. There is no evidence of pleural fluid. Moderate hypertrophic spurring is present in the spine. A surgical plate and screws is noted in the lower cervical region. IMPRESSION: No acute cardiopulmonary abnormality is detected.
[2017-04-22] MEDS: INSULIN ASPART 300 UNITS/3 ML INSULN.PEN SQ SCH ×3 (07:30→17:19)
[2017-04-22] MEDS: metOLazone 2.5 MG TABLET PO SCH (08:28)
[2017-04-22] MEDS: SENNOSIDES/DOCUSATE 8.6/50MG TABLET. PO SCH ×2 (08:29→20:32)
[2017-04-22] MEDS: METOPROLOL TART IMMED RELEASE 25 MG TABLET PO SCH ×2 (08:29→20:32)
[2017-04-22] MEDS: PANTOPRAZOLE 40 MG TABLET. PO SCH (08:30)
[2017-04-22] MEDS: ISOSORBIDE MONONITRATE ER 30 MG TAB.ER.24H PO SCH (08:30)
[2017-04-22] MEDS: APIXABAN 2.5 MG TABLET PO SCH ×2 (08:31→20:32)
[2017-04-22] MEDS: FUROSEMIDE 40 MG TABLET PO SCH (08:31)
[2017-04-22] MEDS: ALLOPURINOL 100 MG TABLET. PO SCH (08:32)
[2017-04-22] MEDS: MAGNESIUM OXIDE 400 MG TABLET PO SCH (08:32)
[2017-04-22] MEDS: amLODIPine BESYLATE 5 MG TABLET PO SCH (08:33)
[2017-04-22] MEDS: GLIMEPIRIDE 2 MG TABLET PO SCH (08:34)
[2017-04-22] MEDS: LIDOCAINE (700MG/PATCH) PATCH. TD SCH (08:37)
[2017-04-22] MEDS: IPRATRPIUM/ALBUTEROL 0.5/2.5MG 3 ML NEBU. NEB SCH ×2 (11:28→21:00)
--- NOTE | 2017-04-22 11:53 | PN ---
DATE: RESIDENTIAL SERVICE CHIEF COMPLAINT: Pain, right below her sternum and little bit of chest pain, which she describes as wish she had a spoon and she could scoop it out. She also has a little bit of pain in her right saenz, which is not new and occasional headache on the left side, also that is not new. She continues on all her medications, have to be concerned that we have to watch her kidney function with the diuretics that she is on. She is also complaining of a little bit of dry mouth, which makes me think maybe we need to hold her diuretic for a day____. PHYSICAL EXAMINATION: VITAL SIGNS: ____ blood pressure 108/68, pulse 69, respirations 18, pulse ox 99% on room air. Height is 64 inches, weight is 168 pounds. She is actually down a couple of pounds since the . HEENT: Her eyes are clear. Her throat is clear. Tongue slightly dry. NECK: Supple. LUNGS: Clear. CARDIOVASCULAR: Regular rhythm and rate. ABDOMEN: Soft, nontender. She does have some soft tissue tenderness right below the sternum, it is tender to palpation. EXTREMITIES: She has some tenderness on her saenz, it is not swollen. Nothing else was found that was abnormal. LABORATORY DATA: Glucose was 377 at lunch time and her last hemoglobin was 8.4. ASSESSMENT: 1. Soft tissue, midepigastric pain. 2. Dysphagia with some subtle abnormalities on her esophagogram and video swallow, this needs to be followed up as an outpatient. 3. Right saenz pain, this is not new and the right mid sternal soft tissue pain. 4. Chronic diastolic congestive heart failure. PLAN: Repeat her labs, check a chest x-ray, a BNP and get a lidocaine patch for her saenz, that area that is tender and we can increase her Protonix to see if that helps, but probably is going to need an ear, nose and throat evaluation as soon as she is discharged from [facility]. WARD ALCANTAR DO DR: CHANG/deepak JOB#: [id number] / [id number]
--- NOTE | 2017-04-22 17:00 | NUR ---
Swing Bed Nursing Note Nursing Problem: Pt admitted to correction unit 04/17/2017 for PT/OT d/t weakness for generalized strengthening. Admitted from the ICU unit, prior to that she was living at home. Cognitive: Pt is A&Ox4. Pt has been laughing and interactive with staff this shift. Pain: Lidocaine patch applied to chest this AM. Patient has not reported any pain to this nurse this shift. Respiratory Status: Patient is on room air and lungs are clear but diminished. Denies cough or SOA. Skin: Dry and Intact, post surgical right hip revision site has healed and open to air. ADL: Pt requires minimal assistance with all ADL's, pt ambulates with walker to restroom, toilets herself, patient is able to dress her self. Patient is continent of bowel and bladder. Reports last BM was 04/20. Pt has been receiving Senna tabs BID. PT/OT consulted.
--- NOTE | 2017-04-22 18:20 | PDOC ---
PROGRESS NOTES Assessment Chest pain. Most likely musculoskeletal. This is improved with a lidocaine patch. She had a cardiac catheterization earlier this year that did not show any coronary disease that required revascularization. I would just continue with pain medication and the lighted derm patch as needed for pain relief. Congestive heart failure, chronic, with preserved ejection fraction. She seems to be about euvolemic at this point time. I would recommend she continue on the present medication. Coronary artery disease. As above, I do not believe she is having angina. I believe her chest pain is due to a musculoskeletal disorder. She should continue on the present cardiac medications. Essential hypertension. Blood pressure appears reasonably controlled. She should continue on the present medication. Problems: Subjective We were asked to see the patient again due to ongoing chest pain. She has a small area of chest pain and her lower sternal margin. She can reproduce this with 1 finger pressing on her sternum. She was given a lidocaine patch and her chest pain is improved. Her shortness breath is also improving. She is able to work with physical therapy. Moving from the bed to chair does not cause significant shortness of breath. When I saw her she had just come back from physical therapy and was very tired. Her lower extremity edema has resolved. She denies any palpitations or syncope. Objective Vital Signs Date Time Temp Pulse Resp B/P (MAP) Pulse Ox O2 Delivery O2 Flow Rate FiO2 04/22/17 11:28 98 Room Air 04/22/17 08:33 64 130/69 04/22/17 06:06 98.2 16 Intake and Output 04/23/17 07:00 Intake Total 1320 ml Balance 1320 ml Intake Oral 1320 ml Abdomen: Normal bowel sounds, Soft, No tenderness Heart: Regular rate, Normal S1, Normal S2, Other (2/6 systolic ejection murmur. ) Extremities: No clubbing, No cyanosis, No edema, Normal pulses General: Alert, Oriented X3, Cooperative, No acute distress HEENT: Atraumatic, EOMI, Mucous membr. moist/pink Lungs: Clear to auscultation, Normal air movement Neck: Supple, No JVD, +2 carotid pulse wo bruit Neuro: Normal speech, Strength at 5/5 X4 ext, Normal tone, Cranial nerves 3-12 NL Psych/Mental Status: Mental status NL, Mood NL Skin: No rashes, No breakdown, No significant lesion Review of Relevant I have reviewed the following items alisha (where applicable) has been applied. Labs Laboratory Tests Test 04/20/17 20:55 04/21/17 04:34 04/21/17 05:41 04/21/17 07:53 Glucose (Fingerstick) 210 mg/dL (70-99) 61 mg/dL (70-99) 135 mg/dL (70-99) 145 mg/dL (70-99) Test 04/21/17 11:50 04/21/17 16:00 04/21/17 16:49 04/21/17 19:27 Glucose (Fingerstick) 142 mg/dL (70-99) 203 mg/dL (70-99) 266 mg/dL (70-99) White Blood Count 8.6 x10^3/uL (4.0-11.0) Red Blood Count 3.37 x10^6/uL (3.50-5.40) Hemoglobin 9.5 g/dL (12.0-15.5) Hematocrit 29.1 % (36.0-47.0) Mean Corpuscular Volume 86 fL (79-100) Mean Corpuscular Hemoglobin 28 pg (25-35) Mean Corpuscular Hemoglobin Concent 33 g/dL (31-37) Red Cell Distribution Width 15.9 % (11.5-14.5) Platelet Count 224 x10^3/uL (140-400) Neutrophils (%) (Auto) 66 % (31-73) Lymphocytes (%) (Auto) 23 % (24-48) Monocytes (%) (Auto) 8 % (0-9) Eosinophils (%) (Auto) 3 % (0-3) Basophils (%) (Auto) 1 % (0-3) Neutrophils # (Auto) 5.6 x10^3uL (1.8-7.7) Lymphocytes # (Auto) 2.0 x10^3/uL (1.0-4.8) Monocytes # (Auto) 0.7 x10^3/uL (0.0-1.1) Eosinophils # (Auto) 0.2 x10^3/uL (0.0-0.7) Basophils # (Auto) 0.0 x10^3/uL (0.0-0.2) Sodium Level 138 mmol/L (136-145) Potassium Level 4.0 mmol/L (3.5-5.1) Chloride Level 101 mmol/L (98-107) Carbon Dioxide Level 31 mmol/L (21-32) Anion Gap 6 (6-14) Blood Urea Nitrogen 51 mg/dL (7-20) Creatinine 2.0 mg/dL (0.6-1.0) Estimated GFR (Cockcroft-Gault) 28.6 BUN/Creatinine Ratio 26 (6-20) Glucose Level 219 mg/dL (70-99) Calcium Level 8.9 mg/dL (8.5-10.1) Magnesium Level 2.1 mg/dL (1.8-2.4) Total Bilirubin 0.2 mg/dL (0.2-1.0) Aspartate Amino Transf (AST/SGOT) 13 U/L (15-37) Alanine Aminotransferase (ALT/SGPT) 21 U/L (14-59) Alkaline Phosphatase 61 U/L (46-116) OL-Cfg-W-Type Natriuretic Peptide 1607 pg/mL (0-449) Total Protein 6.7 g/dL (6.4-8.2) Albumin 3.3 g/dL (3.4-5.0) Albumin/Globulin Ratio 1.0 (1.0-1.7) Test 04/22/17 07:35 04/22/17 11:05 04/22/17 16:19 Glucose (Fingerstick) 121 mg/dL (70-99) 189 mg/dL (70-99) 268 mg/dL (70-99) Medications Current Medications Albuterol/ Ipratropium (Duoneb) 3 ml STK-MED ONCE .ROUTE ; Start 04/16/17 at 11: 26; Stop 04/16/17 at 11:27; Status DC Methylprednisolone (Medrol) 8 mg HS PO Last administered on 04/17/17 21:03; Start 04/17/17 at 21:00; Stop 04/17/17 at 21:01; Status DC Methylprednisolone (Medrol) 4 mg TID PO Last administered on 04/18/17 20:42; Start 04/18/17 at 09:00; Stop 04/18/17 at 21:01; Status DC Methylprednisolone (Medrol) 4 mg BID PO Last administered on 04/19/17 19:51; Start 04/19/17 at 09:00; Stop 04/19/17 at 21:01; Status DC Methylprednisolone (Medrol) 4 mg DAILY PO Last administered on 04/20/17 08:10 ; Start 04/20/17 at 09:00; Stop 04/20/17 at 09:01; Status DC Furosemide (Lasix) 40 mg DAILY PO Last administered on 04/22/17 08:31; Start 04/18/17 at 09:00 Isosorbide Mononitrate (Imdur) 30 mg DAILY PO Last administered on 04/22/17 08 :30; Start 04/18/17 at 09:00 Pantoprazole Sodium (Protonix) 40 mg DAILYAC PO Last administered on 04/22/17 08:30; Start 04/18/17 at 07:30 Acetaminophen (Tylenol) 650 mg PRN Q6HRS PRN PO PAIN Last administered on 08:17; Start 04/17/17 at 20:00 Allopurinol (Zyloprim) 100 mg DAILY PO Last administered on 04/22/17 08:32; Start 04/18/17 at 09:00 Alprazolam (Xanax) 0.25 mg PRN TID PRN PO ANXIETY / AGITATION; Start 04/17/17 at 20:00 Amlodipine Besylate (Norvasc) 10 mg DAILY PO Last administered on 04/22/17 08: 33; Start 04/18/17 at 09:00 Apixaban (Eliquis) 2.5 mg BID PO Last administered on 04/22/17 08:31; Start at 21:00 Atorvastatin Calcium (Lipitor) 10 mg HS PO Last administered on 04/21/17 20:15 ; Start 04/17/17 at 21:00 Furosemide (Lasix) 40 mg DAILY PO ; Start 04/18/17 at 09:00; Status UNV Glimepiride (Amaryl) 4 mg DAILY PO Last administered on 04/22/17 08:34; Start 04/18/17 at 09:00 Albuterol/ Ipratropium (Duoneb) 3 ml BID NEB Last administered on 04/22/17 11: 28; Start 04/17/17 at 21:00 Magnesium Oxide (Magnesium Oxide) 400 mg DAILY PO Last administered on 08:32; Start 04/18/17 at 09:00 Metolazone (Zaroxolyn) 2.5 mg 3X/WEEK PO Last administered on 04/22/17 08:28; Start 04/20/17 at 09:00 Metoprolol Tartrate (Lopressor) 25 mg BID PO Last administered on 04/22/17 08: 29; Start 04/17/17 at 21:00 Nitroglycerin (Nitrostat) 0.4 mg PRN Q5MIN PRN SL CHEST PAIN; Start 04/17/17 at 20:00 Senna/Docusate Sodium (Senna Plus) 1 tab BID PO Last administered on 04/22/17 08:29; Start 04/17/17 at 21:00 Vitamin D (Vitamin D3) 5,000 unit WEEKLY PO Last administered on 04/18/17 08: 14; Start 04/18/17 at 09:00 Insulin Detemir (Levemir) 20 units QHS SQ ; Start 04/17/17 at 21:00; Stop at 21:00; Status DC Meclizine HCl (Antivert) 25 mg PRN TID PRN PO DIZZINESS; Start 04/17/17 at 20: 45 Non-Formulary Medication 1 tab HS PO ; Start 04/17/17 at 21:00; Status UNV Insulin Aspart (NovoLOG) 0-7 UNITS QIDACHS SQ Last administered on 04/18/17 11 :30; Start 04/17/17 at 21:00; Stop 04/18/17 at 12:20; Status DC Dextrose 12.5 gm PRN Q15MIN PRN IV SEE COMMENTS; Start 04/17/17 at 20:15 Insulin Detemir (Levemir) 25 units QHS SQ Last administered on 04/18/17 20:47 ; Start 04/17/17 at 21:00; Stop 04/19/17 at 14:43; Status DC Albuterol Sulfate (Ventolin) 2.5 mg PRN Q6HRS PRN NEB SHORTNESS OF BREATH; Start 04/17/17 at 21:00 Trazodone HCl (Desyrel) 50 mg HS PO Last administered on 04/21/17 20:15; Start 04/17/17 at 21:00 Ropinirole HCl (Requip) 0.25 mg HS PO Last administered on 04/21/17 20:15; Start 04/18/17 at 21:00 Insulin Aspart (NovoLOG) 0-9 UNITS TIDAC SQ Last administered on 04/22/17 17: 19; Start 04/18/17 at 16:30 Dextrose 12.5 gm PRN Q15MIN PRN IV SEE COMMENTS; Start 04/18/17 at 12:30; Status Cancel Insulin Detemir (Levemir) 30 units QHS SQ Last administered on 04/21/17 20:25 ; Start 04/19/17 at 21:00 Lidocaine (Lidoderm) 1 patch DAILY TD Last administered on 04/22/17 08:37; Start 04/21/17 at 16:10 Active Scripts Active Allopurinol 100 Mg Tablet 1 Tab PO DAILY Metolazone 2.5 Mg Tablet 2.5 Mg PO 2XWEEK 90 Days Amlodipine Besylate 5 Mg Tablet 10 Mg PO DAILY 90 Days LAST DOSE GIVEN: DATE: 01/01/17 TIME: 0900 NEXT DOSE DUE: DATE: 01/02/17 TIME: 0900 Reported Isosorbide Mononitrate Er (Isosorbide Mononitrate) 30 Mg Tab.er.24h 1 Tab PO DAILY Meclizine Hcl 25 Mg Tablet 1 Tab PO PRN TID Take as prescribed when needed Duoneb 0.5-3(2.5) Mg/3 Ml (Albuterol/Ipratropium) 3 Ml Ampul.neb 3 Ml NEB PRN Q6HRS PRN Atorvastatin Calcium 10 Mg Tablet 1 Tab PO HS LAST DOSE GIVEN: DATE: 04/06/17 TIME: 9 PM NEXT DOSE DUE: DATE: 04/07/17 TIME: 9 PM Tylenol (Acetaminophen) 325 Mg Tablet 2 Tab PO PRN Q6HRS PRN Take as directed when needed Senokot-S Tablet (Sennosides/Docusate Sodium) 1 Each Tablet 1 Tab PO BID LAST DOSE GIVEN: DATE: 04/07/17 TIME: 9 AM NEXT DOSE DUE: DATE: 04/07/17 TIME: 9 PM Bystolic (Nebivolol Hcl) 5 Mg Tablet 1 Tab PO HS LAST DOSE GIVEN: DATE: 04/06/17 TIME: 9 PM NEXT DOSE DUE: DATE: 04/07/17 TIME: 9 PM Magnesium Oxide 400 Mg Tablet 1 Tab PO DAILY Take tomorrow morning Glimepiride 4 Mg Tablet 1 Tab PO DAILY Take tomorrow morning Furosemide 40 Mg Tablet 1 Tab PO DAILY Take tomorrow morning Novolog Flexpen (Insulin Aspart) 100 Unit/1 Ml Insuln.pen 0-7 Unit SQ QIDACHS LAST DOSE GIVEN: DATE: 04/07/17 TIME: 1130 NEXT DOSE DUE: DATE: 04/07/17 TIME: 9 PM According to sliding scale NITROGLYCERIN SubLingual (Nitroglycerin) 0.4 Mg Tab.subl 0.4 Mg SL PRN Q5MIN PRN LAST DOSE GIVEN: DATE: No given in hospital TIME: NEXT DOSE DUE: DATE: as needed for chest pain TIME: Xanax (Alprazolam) 0.25 Mg Tablet 0.25 Mg PO PRN TID PRN Take as directed when needed DATE: 01/01/17 TIME: 2100 NEXT DOSE DUE: DATE: 01/02/17 TIME: 0900 Levemir (Insulin Detemir) 100 Unit/1 Ml Vial 20 Unit SQ HS LAST DOSE GIVEN: DATE: 04/06/17 TIME: 9 PM NEXT DOSE DUE: DATE: 04/07/17 TIME: 9 PM Eliquis (Apixaban) 2.5 Mg Tablet 2.5 Mg PO BID LAST DOSE GIVEN: DATE: 04/07/17 TIME: 9 AM NEXT DOSE DUE: DATE: 04/07/17 TIME: 9 PM Vitamin D (Cholecalciferol (Vitamin D3)) 2,000 Unit Capsule 5,000 Unit PO WEEKLY Continue taking on your weekly schedule DATE: 12/31/16 TIME: 0900 NEXT DOSE DUE: DATE:01/07/17 TIME: 0900 Metoprolol Tartrate 25 Mg Tablet 25 Mg PO BID LAST DOSE GIVEN: DATE: 04/07/17 TIME: 9 AM NEXT DOSE DUE: DATE: 04/07/17 TIME: 9 PM Vitals/I & O Vital Sign - Last 24 Hours 04/21/17 04/21/17 04/21/17 04/22/17 20:00 20:21 20:22 06:06 Temp 98.1 98.2 Pulse 71 71 64 Resp 18 16 B/P (MAP) 121/65 (83) 121/65 130/69 (89) Pulse Ox 98 99 O2 Delivery Room Air Room Air Room Air 04/22/17 04/22/17 04/22/17 04/22/17 08:00 08:29 08:30 08:33 Pulse 64 64 64 B/P (MAP) 130/69 130/69 130/69 O2 Delivery Room Air 04/22/17 11:28 Pulse Ox 98 O2 Delivery Room Air Intake and Output 04/22/17 04/22/17 04/23/17 15:00 23:00 07:00 Intake Total 1080 ml 240 ml Balance 1080 ml 240 ml CAROL ALLEN Jr, MD Apr 22, 2017 18:20
[2017-04-22 18:45] VITALS: BP 124/64
[2017-04-22] MEDS: traZODone 50 MG TABLET. PO SCH (20:31)
[2017-04-22] MEDS: rOPINIRole 0.25 MG TABLET. PO SCH (20:31)
[2017-04-22] MEDS: ATORVASTATIN CALCIUM 10 MG TABLET. PO SCH (20:32)
[2017-04-22] MEDS: INSULIN DETEMIR 300 UNITS/3 ML INSULN.PEN. SQ SCH (20:36)
--- NOTE | 2017-04-22 22:33 | NUR ---
Swing Bed Nursing Note Nursing Problem: Pt admitted to shelter unit 04/17/2017 for PT/OT d/t weakness for generalized strengthening. Admitted from the ICU unit, prior to that she was living at home. Cognitive: Pt is A&Ox4. Pt visiting with family at change of shift, laughing and interactive. Pain: Lidocaine patch removed from chest at HS. Patient reports some relief, but rates 2/10 "tenderness" between breasts. Respiratory Status: Patient is on room air and lungs are clear and diminished. Denies cough or SOA. Declined HS duoneb treatment. Skin: Dry and Intact, post surgical right hip revision site has healed and open to air. ADL: Pt requires minimal assistance with all ADL's, pt ambulates with walker to restroom, toilets herself, patient is able to dress her self. Patient is continent of bowel and bladder. Reports last BM was today 04/22. PT/OT consulted.
[2017-04-23 05:48] VITALS: BP 134/61
[2017-04-23] MEDS ORDERED: PANT40TA5 PO (07:21)
[2017-04-23] MEDS ORDERED: TRAZ50TA15 PO (07:21)
[2017-04-23] MEDS ORDERED: ROPI0.25 PO (07:21)
[2017-04-23] MEDS ORDERED: METO2.5T PO (07:21)
[2017-04-23] MEDS ORDERED: LIDO700A39 TD (07:21)
[2017-04-23] MEDS: INSULIN ASPART 300 UNITS/3 ML INSULN.PEN SQ SCH (07:30)
[2017-04-23] MEDS: LIDOCAINE (700MG/PATCH) PATCH. TD SCH (08:18)
[2017-04-23] MEDS: APIXABAN 2.5 MG TABLET PO SCH (08:18)
[2017-04-23] MEDS: SENNOSIDES/DOCUSATE 8.6/50MG TABLET. PO SCH (08:19)
[2017-04-23] MEDS: GLIMEPIRIDE 2 MG TABLET PO SCH (08:19)
[2017-04-23] MEDS: ALLOPURINOL 100 MG TABLET. PO SCH (08:19)
[2017-04-23] MEDS: METOPROLOL TART IMMED RELEASE 25 MG TABLET PO SCH (08:19)
[2017-04-23 08:20] VITALS: BP 134/61
[2017-04-23] MEDS: FUROSEMIDE 40 MG TABLET PO SCH (08:20)
[2017-04-23] MEDS: PANTOPRAZOLE 40 MG TABLET. PO SCH (08:20)
[2017-04-23] MEDS: amLODIPine BESYLATE 5 MG TABLET PO SCH (08:20)
[2017-04-23] MEDS: ISOSORBIDE MONONITRATE ER 30 MG TAB.ER.24H PO SCH (08:20)
[2017-04-23] MEDS: MAGNESIUM OXIDE 400 MG TABLET PO SCH (08:26)
[2017-04-23] MEDS: IPRATRPIUM/ALBUTEROL 0.5/2.5MG 3 ML NEBU. NEB SCH (09:00)
--- NOTE | 2017-04-23 10:46 | NUR ---
Swing Bed Nursing Note Nursing Problem: Pt admitted to alf unit 04/17/2017 for PT/OT d/t weakness for generalized strengthening. Admitted from the ICU unit, prior to that she was living at home. Cognitive: Pt is A&Ox4. Pt has been laughing and joking with staff this morning. Pt states that she is excited to go home today. Pain: Lidocaine patch applied to midline chest and right saenz as ordered. Pt denies any pain at this time. Respiratory Status: Patient is on room air and lungs are clear and diminished. Denies cough or SOA. Skin: Dry and Intact, post surgical right hip revision site has healed and open to air. ADL: Pt requires minimal assistance with all ADL's, pt ambulates with walker to restroom, toilets herself, patient is able to dress her self. Patient is continent of bowel and bladder. Reports last BM was 04/22. PT/OT consulted.
--- NOTE | 2017-04-23 10:48 | NUR ---
Discharge Note: CARINA TREADWELL [address] Discharge instructions and discharge home medications reviewed with Patient and a copy given. All questions have been answered and understanding verbalized. The following instructions and handouts were given: MEDICATIONS, FOLLOW UP INSTRUCTIONS, FOLLOW UP APPOINTMENT INFORMATION, AND EDUCATIONAL HANDOUTS GIVEN. Discontinued lines and drains: NO PERIPHERAL IV TO DISCONTINUE. Patient discharged to HOME with FAMILY via PRIVATE FAMILY VEHICLE. HOME HEALTH SERVICES WILL FOLLOW PATIENT.
--- NOTE | 2017-04-23 20:40 | DS ---
DATE OF DISCHARGE: 04/23/2017 DISPOSITION: Home with Home Health. DISCHARGE DIAGNOSES: 1. Weakness. 2. Status post right hip arthroplasty. 3. Dysphagia with some abnormalities on testing. 4. Right saenz pain. 5. Chronic diastolic congestive heart failure. 6. Midsternal soft tissue pain. 7. Hypertension. 8. Coronary artery disease. RESIDENTIAL COURSE: Pleasant 86-year-old female who had a stay in the hospital after some acute on chronic diastolic heart failure. She responded nicely to treatment and then was switched to swing bed where she received PT and OT. All of her problems were addressed during her long term stay. Incidentally, she was found to have some dysphagia with some subtle abnormalities on number of tests such as barium swallow. She was given an appointment with [facility] in 1 weeks' time. She will follow up with her own physician within a week and she sees her director biostatistics regularly. For medication, see JUAN PABLO. She was discharged in good condition on 04/23/2017. Blood pressure 134/61, pulse 60. WARD ALCANTAR DO DR: CHANG/deepak JOB#: [id number] / [id number]
== END 2017-04-23 10:40 | disposition home health service (06) | DRG 291 ==
LOC: 1 SOUTH 04-17 17:38
PROVIDERS: ADMIT Internal Medicine; ATTEND Internal Medicine
DX: I13.0 Hypertensive heart and chronic kidney disease with heart failure and stage 1 through stage 4 chronic kidney disease, or unspecified chronic kidney disease (principal); I50.33 Acute on chronic diastolic (congestive) heart failure; I27.2 Other secondary pulmonary hypertension; J44.9 Chronic obstructive pulmonary disease, unspecified; I48.0 Paroxysmal atrial fibrillation; R13.10 Dysphagia, unspecified; G25.81 Restless legs syndrome; M10.9 Gout, unspecified; D63.1 Anemia in chronic kidney disease; I25.10 Atherosclerotic heart disease of native coronary artery without angina pectoris; E78.00 Pure hypercholesterolemia, unspecified; R07.89 Other chest pain; N18.9 Chronic kidney disease, unspecified; Z96.641 Presence of right artificial hip joint; Z77.22 Contact with and (suspected) exposure to environmental tobacco smoke (acute) (chronic); Z88.6 Allergy status to analgesic agent; Z88.1 Allergy status to other antibiotic agents; Z88.0 Allergy status to penicillin; Z88.7 Allergy status to serum and vaccine; Z88.8 Allergy status to other drugs, medicaments and biological substances; Z95.5 Presence of coronary angioplasty implant and graft
CPT/HCPCS: 36415; 71020; 80053; 82947; 83735; 83880; 85025; 94640; J7509; J7620; 97110; 97116; 97530; 97535

== ENCOUNTER 2017-07-03 11:13 | Inpatient (IN) | payer MEDICARE, OTHER ==
[~2017-07-03] VITALS: Ht 162.6 cm; Wt 82.7 kg
[~2017-07-03 11:13] MED LIST changes: +LIDO700A39 TD; +ROPI0.25 PO; +TRAZ50TA15 PO
--- NOTE | 2017-07-03 11:26 | PHYS DOC ---
Past History Past Medical History: A-Fib, Diabetes, Heart Disease, Hip Fracture, Hypertension, Other Past Surgical History: Appendectomy, Cholecystectomy, Hip Replacement, Knee Replacement, Pacemaker, Other Alcohol Use: None Drug Use: None Adult General HPI HPI Patient is a 87-year-old female presenting to the emergency department essentially for evaluation of a 12 pound weight gain that occurred over the past 24 hours. Patient has history of kidney disease congestive heart failure and COPD and was weighed yesterday by her physician and was weight again today and she jumped from 169 pounds to 181 pounds. Has some shortness of breath mostly when she gets up and moves around. Patient says that she is having some pain in her chest region the feels somewhat heavy but it is reproducible with chest palpation. Patient is in no obvious distress with normal vital signs and no obvious signs of edema peripherally. Review of Systems Review of Systems Constitutional: Denies fever or chills [] Eyes: Denies change in visual acuity, redness, or eye pain [] HENT: Denies nasal congestion or sore throat [] Respiratory: Denies cough. + shortness of breath [] Cardiovascular: + CP GI: Denies abdominal pain, nausea, vomiting, bloody stools or diarrhea [] : Denies dysuria or hematuria [] Musculoskeletal: Denies back pain or joint pain [] Integument: Denies rash or skin lesions [] Neurologic: Denies headache, focal weakness or sensory changes [ All other systems were reviewed and found to be within normal limits, except as documented in this note. Allergies Allergies Allergies Coded Allergies Type Severity Reaction Last Updated Verified Influenza Virus Vaccines Allergy Intermediate GENERALIZED BODY/JOINT ACHES 10/07 Yes Penicillins Allergy Intermediate NAUSEA/VOMITING 10/07/16 Yes amoxicillin Allergy Intermediate Nausea/Vomiting 10/07/16 Yes cephalexin Allergy Intermediate Nausea/Vomiting 10/07/16 Yes clavulanic acid Allergy Intermediate Nausea/Vomiting 10/07/16 Yes metoclopramide Allergy Intermediate NAUSEA/VOMITING 10/07/16 Yes Physical Exam Physical Exam Constitutional: Well developed, well nourished, no acute distress, non-toxic appearance. [] HENT: Normocephalic, atraumatic, bilateral external ears normal, oropharynx moist, no oral exudates, nose normal. [] Eyes: PERRLA, EOMI, conjunctiva normal, no discharge. [] Neck: Normal range of motion, no tenderness, supple, no stridor. [] Cardiovascular:Heart rate regular rhythm, no murmur [] Lungs & Thorax: Bilateral breath sounds clear to auscultation [] Abdomen: Bowel sounds normal, soft, no tenderness, no masses, no pulsatile masses. [] Skin: Warm, dry, no erythema, no rash. [] Back: No tenderness, no CVA tenderness. [] Extremities: No tenderness, no cyanosis, no clubbing, ROM intact, no edema. [] Neurologic: Alert and oriented X 3, normal motor function, normal sensory function, no focal deficits noted. [] EKG EKG [] Radiology/Procedures Radiology/Procedures Portable chest, 07/03/2017: History: Chest pain, shortness of breath Comparison is made to a study from 04/21/2017. 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 The heart size and pulmonary vascularity are normal. There is calcific plaquing of the aorta. No pulmonary infiltrates are seen. There is no evidence of pleural fluid. IMPRESSION: No acute cardiopulmonary abnormality is detected. DICTATED AND SIGNED BY: VERENICE WEISS MD DATE: 07/03/17 1208 Course & Med Decision Making Course & Med Decision Making Patient with 12 pound weight gain so she will get labs including kidney function BNP chest x-ray and then be reassessed. Patient and daughter quite uncomfortable going home given the recent weight loss and shortness of breath. Chest pain is atypical for ACS as it is reproducible with palpation however she does have risk factors. Shortness of breath is more likely COPD given how normal her chest x-ray and BNP are especially in comparison to priors. Patient will be admitted for further evaluation and treatment. Dragon Disclaimer Dragon Disclaimer This electronic medical record was generated, in whole or in part, using a voice recognition dictation system. Departure Departure: Impression: Primary Impression: COPD with acute exacerbation Additional Impressions: CHF (congestive heart failure) Chest pain Renal insufficiency Disposition: ADMITTED INPATIENT Admitting Physician: Juan Luis Yin Condition: STABLE Referrals: PATRICIA COOPER MD (PCP) Problem Qualifiers CAROL WOODS DO Jul 03, 2017 11:26
[2017-07-03 12:00] LABS: BASO # 0.1 x10^3/uL (0.0-0.2); BASO % 1 % (0-3); EOS # 0.1 x10^3/uL (0.0-0.7); EOS % 2 % (0-3); HEMATOCRIT 33.1 % (36.0-47.0); HEMOGLOBIN 10.9 g/dL (12.0-15.5); LYMPH # 1.9 x10^3/uL (1.0-4.8); LYMPH % 26 % (24-48); MEAN CORPUSCULAR HEMOGLOBIN 28 pg (25-35); MEAN CORPUSCULAR HGB CONC 33 g/dL (31-37); MEAN CORPUSCULAR VOLUME 86 fL (79-100); MONO # 0.4 x10^3/uL (0.0-1.1); MONO % 6 % (0-9); NEUT # 4.6 x10^3uL (1.8-7.7); NEUT % 65 % (31-73); PLATELET COUNT 172 x10^3/uL (140-400); RED BLOOD COUNT 3.86 x10^6/uL (3.50-5.40); RED CELL DISTRIBUTION WIDTH 15.5 % (11.5-14.5); WHITE BLOOD COUNT 7.1 x10^3/uL (4.0-11.0)
--- NOTE | 2017-07-03 12:11 | RAD ---
Portable chest, 07/03/2017: History: Chest pain, shortness of breath Comparison is made to a study from 04/21/2017. 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 The heart size and pulmonary vascularity are normal. There is calcific plaquing of the aorta. No pulmonary infiltrates are seen. There is no evidence of pleural fluid. IMPRESSION: No acute cardiopulmonary abnormality is detected.
--- NOTE | 2017-07-03 12:11 | EKG ---
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
[2017-07-03 12:19] LABS: ALBUMIN 3.5 g/dL (3.4-5.0); ALBUMIN/GLOBULIN RATIO 0.8 (1.0-1.7); CALCIUM 9.7 mg/dL (8.5-10.1); CREATININE 2.5 mg/dL (0.6-1.0); POTASSIUM 4.4 mmol/L (3.5-5.1); TOTAL BILIRUBIN 0.3 mg/dL (0.2-1.0); TOTAL PROTEIN 7.7 g/dL (6.4-8.2)
[2017-07-03 12:26] LABS: BACTERIA,URINE 0 /HPF (0-FEW); BILIRUBIN,URINE NEG (NEG); CLARITY,URINE HAZY; COLOR,URINE YELLOW; GLUCOSE,URINE NEG (NEG); NITRITE,URINE NEG (NEG); RBC,URINE OCC /HPF (0-2); SQUAMOUS EPITHELIAL CELL,UR FEW /LPF; UROBILINOGEN,URINE 0.2 mg/dL (0.2 mg/dL); WBC,URINE OCC /HPF (0-4)
[2017-07-03] MEDS ORDERED: IPRATRPIUM/ALBUTEROL 0.5/2.5MG 3 ML NEBU. NEB ONE (12:45)
[2017-07-03] MEDS ORDERED: methylPREDNISolone SOD SUCC PF 125 MG/2 ML VIAL. IV ONE (13:15)
[2017-07-03] MEDS ORDERED: ONDANSETRON PF 4 MG/2 ML VIAL. IV PRN (13:30)
[2017-07-03 15:19] VITALS: BP 100/74
[2017-07-03] MEDS ORDERED: IPRATRPIUM/ALBUTEROL 0.5/2.5MG 3 ML NEBU. NEB PRN (15:45)
[2017-07-03] MEDS ORDERED: ALPRAZolam 0.25 MG TABLET PO PRN (15:45)
[2017-07-03] MEDS ORDERED: ACETAMINOPHEN 325 MG TABLET PO PRN (15:45)
[2017-07-03] MEDS ORDERED: NITROGLYCERIN SUBLINGUAL 0.4 MG BOTTLE OF 25. SL PRN (15:45)
[2017-07-03] MEDS ORDERED: MECLIZINE 12.5 MG TABLET. PO PRN (16:00)
[2017-07-03 18:28] VITALS: BP 148/69
--- NOTE | 2017-07-03 18:51 | PDOC1 ---
History of Present Illness Reason for Visit: Chest pain History of Present Illness Pt states that she gained 10 pounds overnight. Today, she was feeling a "fullness" in her chest that she was concerned was her heart, as it has felt that way before when she has "too much fluid." She says she is feeling much better now. She denies any medication changes recently, or dietary changes. She admits she has been under a lot of stress lately as she is trying to decide whether to sell her house and move in to her son's house. She says this makes her sad to think about. She denies leg swelling, hemoptysis, fever, dizziness, headache, n/v, abd pain, diarrhea, rash, weakness, numbness, or cough. Chief Complaint: SHORTNESS OF BREATH Allergies: Coded Allergies: Influenza Virus Vaccines (Verified Allergy, Intermediate, GENERALIZED BODY /JOINT ACHES, 10/07/16) Penicillins (Verified Allergy, Intermediate, NAUSEA/VOMITING, 10/07/16) amoxicillin (Verified Allergy, Intermediate, Nausea/Vomiting, 10/07/16) cephalexin (Verified Allergy, Intermediate, Nausea/Vomiting, 10/07/16) clavulanic acid (Verified Allergy, Intermediate, Nausea/Vomiting, 10/07/16) metoclopramide (Verified Allergy, Intermediate, NAUSEA/VOMITING, 10/07/16) Past Medical History Cardiac: CAD, CHF, HTN, pulmonary hypertension Pulmonary: COPD 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 See HPI for pertinent positives and negative responses, other robles all other systems are negative, non pertinent or non contributory Allergies: Coded Allergies: Influenza Virus Vaccines (Verified Allergy, Intermediate, GENERALIZED BODY /JOINT ACHES, 10/07/16) Penicillins (Verified Allergy, Intermediate, NAUSEA/VOMITING, 10/07/16) amoxicillin (Verified Allergy, Intermediate, Nausea/Vomiting, 10/07/16) cephalexin (Verified Allergy, Intermediate, Nausea/Vomiting, 10/07/16) clavulanic acid (Verified Allergy, Intermediate, Nausea/Vomiting, 10/07/16) metoclopramide (Verified Allergy, Intermediate, NAUSEA/VOMITING, 10/07/16) Medications Current Medications Methylprednisolone Sodium Succinate (SOLU-Medrol 125MG VIAL) 125 mg 1X ONCE IV Last administered on 07/03/17t 13:04; Start 07/03/17 at 13:15; Stop 07/03/17 at 13:16; Status DC Albuterol/ Ipratropium (Duoneb) 3 ml 1X ONCE NEB Last administered on t 13:15; Start 07/03/17 at 12:45; Stop 07/03/17 at 12:57; Status DC Ondansetron HCl (Zofran) 4 mg PRN Q4HRS PRN IV NAUSEA/VOMITING; Start 07/03/17 at 13:30; Stop 07/04/17 at 13:29 Fentanyl Citrate (Fentanyl 2ml Vial) 50 mcg PRN Q2HR PRN IV PAIN; Start at 13:30; Stop 07/04/17 at 13:29 Acetaminophen (Tylenol) 650 mg PRN Q6HRS PRN PO PAIN; Start 07/03/17 at 15:45 Allopurinol (Zyloprim) 100 mg DAILY PO ; Start 07/04/17 at 09:00 Alprazolam (Xanax) 0.25 mg PRN TID PRN PO ANXIETY / AGITATION; Start 07/03/17 at 15:45 Amlodipine Besylate (Norvasc) 10 mg DAILY PO ; Start 07/04/17 at 09:00 Apixaban (Eliquis) 2.5 mg BID PO ; Start 07/03/17 at 21:00 Atorvastatin Calcium (Lipitor) 10 mg HS PO ; Start 07/03/17 at 21:00 Furosemide (Lasix) 40 mg DAILY PO ; Start 07/04/17 at 09:00 Albuterol/ Ipratropium (Duoneb) 3 ml PRN Q6HRS PRN NEB SHORTNESS OF BREATH; Start 07/03/17 at 15:45 Lidocaine (Lidoderm) 1 patch DAILY TD ; Start 07/04/17 at 09:00 Magnesium Oxide (Magnesium Oxide) 400 mg DAILY PO ; Start 07/04/17 at 09:00 Metolazone (Zaroxolyn) 2.5 mg 3X/WEEK PO ; Start 07/06/17 at 09:00 Nitroglycerin (Nitrostat) 0.4 mg PRN Q5MIN PRN SL CHEST PAIN; Start 07/03/17 at 15:45 Pantoprazole Sodium (Protonix) 40 mg DAILYAC PO ; Start 07/04/17 at 07:30 Ropinirole HCl (Requip) 0.25 mg HS PO ; Start 07/03/17 at 21:00 Senna/Docusate Sodium (Senna Plus) 1 tab BID PO ; Start 07/03/17 at 21:00 Trazodone HCl (Desyrel) 50 mg HS PO ; Start 07/03/17 at 21:00 Glimepiride (Amaryl) 4 mg DAILY PO ; Start 07/04/17 at 09:00 Insulin Detemir (Levemir) 20 units BID SQ ; Start 07/03/17 at 21:00 Meclizine HCl (Antivert) 25 mg PRN TID PRN PO DIZZINESS; Start 07/03/17 at 16: 00 Metoprolol Tartrate (Lopressor) 25 mg BID PO ; Start 07/03/17 at 21:00 Active Scripts Active Trazodone Hcl 50 Mg Tablet 50 Mg PO HS 90 Days Requip (Ropinirole Hcl) 0.25 Mg Tablet 0.25 Mg PO HS 90 Days Pantoprazole Sodium 40 Mg Tablet.dr 40 Mg PO DAILYAC 90 Days Lidocaine 1 Each Adh..patch 1 Patch TD DAILY 60 Days Metolazone 2.5 Mg Tablet 2.5 Mg PO 3X/WEEK 90 Days Allopurinol 100 Mg Tablet 1 Tab PO DAILY Amlodipine Besylate 5 Mg Tablet 10 Mg PO DAILY 90 Days LAST DOSE GIVEN: DATE: 01/01/17 TIME: 0900 NEXT DOSE DUE: DATE: 01/02/17 TIME: 0900 Reported Meclizine Hcl 25 Mg Tablet 1 Tab PO PRN TID NEXT DOSE DUE: DATE: TODAY TIME: IF NEEDED Duoneb 0.5-3(2.5) Mg/3 Ml (Albuterol/Ipratropium) 3 Ml Ampul.neb 3 Ml NEB PRN Q6HRS PRN LAST DOSE GIVEN: DATE: TODAY TIME: AM NEXT DOSE DUE: DATE: TODAY TIME: AFTERNOON Atorvastatin Calcium 10 Mg Tablet 1 Tab PO HS LAST DOSE GIVEN: DATE: YESTERDAY TIME: AT BEDTIME NEXT DOSE DUE: DATE: TODAY TIME: AT BEDTIME Tylenol (Acetaminophen) 325 Mg Tablet 2 Tab PO PRN Q6HRS PRN NEXT DOSE DUE: DATE: TODAY TIME: IF NEEDED Senokot-S Tablet (Sennosides/Docusate Sodium) 1 Each Tablet 1 Tab PO BID LAST DOSE GIVEN: DATE: TIME: AM NEXT DOSE DUE: DATE: TODAY TIME: PM Bystolic (Nebivolol Hcl) 5 Mg Tablet 1 Tab PO HS LAST DOSE GIVEN: DATE: TIME: AT BEDTIME NEXT DOSE DUE: DATE: TODAY TIME: AT BEDTIME Magnesium Oxide 400 Mg Tablet 1 Tab PO DAILY LAST DOSE GIVEN: DATE: TIME: AM NEXT DOSE DUE: DATE: TOMORR TIME: AM Glimepiride 4 Mg Tablet 1 Tab PO DAILY LAST DOSE GIVEN: DATE: TIME: AM NEXT DOSE DUE: DATE: TIME: AM Furosemide 40 Mg Tablet 1 Tab PO DAILY LAST DOSE GIVEN: DATE: TIME: AM NEXT DOSE DUE: DATE: TIME: AM NITROGLYCERIN SubLingual (Nitroglycerin) 0.4 Mg Tab.subl 0.4 Mg SL PRN Q5MIN PRN NEXT DOSE DUE: DATE: TIME: IF NEEDED NEXT DOSE DUE: DATE: as needed for chest pain TIME: Xanax (Alprazolam) 0.25 Mg Tablet 0.25 Mg PO PRN TID PRN NEXT DOSE DUE: DATE: TIME: IF NEEDED NEXT DOSE DUE: DATE: 01/02/17 TIME: 0900 Levemir (Insulin Detemir) 100 Unit/1 Ml Vial 20 Unit SQ BID LAST DOSE GIVEN: DATE: TIME: AT BEDTIME NEXT DOSE DUE: DATE: TODAY TIME: AT BEDTIME Eliquis (Apixaban) 2.5 Mg Tablet 2.5 Mg PO BID LAST DOSE GIVEN: DATE: TIME: AM NEXT DOSE DUE: DATE: TODAY TIME: PM Vitamin D (Cholecalciferol (Vitamin D3)) 2,000 Unit Capsule 5,000 Unit PO WEEKLY Continue taking on your weekly schedule DATE: 04/18/17 TIME: 0900 NEXT DOSE DUE: DATE: 04/25/17 TIME: 0900 Exam Vital Signs Vital Signs Date Time Temp Pulse Resp B/P (MAP) Pulse Ox O2 Delivery O2 Flow Rate FiO2 07/03/17 18:28 98.1 63 20 148/69 (95) 96 Room Air General Appearance: Alert, Oriented X3, Cooperative, No acute distress HEENT: Atraumatic, PERRLA, EOMI, Mucous membr. moist/pink, Other (Neck supple, no JVD, no LAD) Respiratory: Clear to auscultation, Normal air movement Heart: Regular rate, Normal S1, Normal S2, No murmurs Abdominal: Soft, No tenderness, No hepatospenomegaly, No masses Extremities: No edema, Normal pulses Skin: No rashes Neuro: Normal speech, Strength at 5/5 X4 ext, Normal tone, Cranial nerves 3-12 NL Psych/Mental Status: Mental status NL, Mood NL Assessment/Plan Assessment/Plan 1. Chest pain, atypical, resolved: R/o ACS w/ serial troponins. Cardiology consult. Resume home medications. PRN NTG. Pt was given steroids in ER, but pt is not SOA or wheezing and I see no evidence of COPD exacerbation. last echo on file in 2014 showed normal EF w/ pulmonary HTN. Pt has no extremity edema. 2. CKD,stage 4: Creat 2.5, baseline is around 2.1. Will need to repeat in AM. If going to stay as high as 2.5, may need to consider changing off Eliquis , since her eGFR is <20 right now. 3. CHF: Stable, CXR normal. Continue home meds. 4. DM2: Continue home meds, accucheck AC/HS 5. COPD: Continue home breathing treatments. 6. DVT proph: Pt on Eliquis. 7. Disp: Cardiology in AM. COURSE Allergies Coded Allergies Type Severity Reaction Last Updated Verified Influenza Virus Vaccines Allergy Intermediate GENERALIZED BODY/JOINT ACHES 10/07 Yes Penicillins Allergy Intermediate NAUSEA/VOMITING 10/07/16 Yes amoxicillin Allergy Intermediate Nausea/Vomiting 10/07/16 Yes cephalexin Allergy Intermediate Nausea/Vomiting 10/07/16 Yes clavulanic acid Allergy Intermediate Nausea/Vomiting 10/07/16 Yes metoclopramide Allergy Intermediate NAUSEA/VOMITING 10/07/16 Yes Laboratory Tests Test 07/03/17 11:40 07/03/17 12:05 White Blood Count 7.1 x10^3/uL (4.0-11.0) Red Blood Count 3.86 x10^6/uL (3.50-5.40) Hemoglobin 10.9 g/dL (12.0-15.5) Hematocrit 33.1 % (36.0-47.0) Mean Corpuscular Volume 86 fL (79-100) Mean Corpuscular Hemoglobin 28 pg (25-35) Mean Corpuscular Hemoglobin Concent 33 g/dL (31-37) Red Cell Distribution Width 15.5 % (11.5-14.5) Platelet Count 172 x10^3/uL (140-400) Neutrophils (%) (Auto) 65 % (31-73) Lymphocytes (%) (Auto) 26 % (24-48) Monocytes (%) (Auto) 6 % (0-9) Eosinophils (%) (Auto) 2 % (0-3) Basophils (%) (Auto) 1 % (0-3) Neutrophils # (Auto) 4.6 x10^3uL (1.8-7.7) Lymphocytes # (Auto) 1.9 x10^3/uL (1.0-4.8) Monocytes # (Auto) 0.4 x10^3/uL (0.0-1.1) Eosinophils # (Auto) 0.1 x10^3/uL (0.0-0.7) Basophils # (Auto) 0.1 x10^3/uL (0.0-0.2) Prothrombin Time 10.3 SEC (9.4-11.4) Prothromb Time International Ratio 1.0 (0.9-1.1) Activated Partial Thromboplast Time 26 SEC (23-33) Sodium Level 138 mmol/L (136-145) Potassium Level 4.4 mmol/L (3.5-5.1) Chloride Level 99 mmol/L (98-107) Carbon Dioxide Level 30 mmol/L (21-32) Anion Gap 9 (6-14) Blood Urea Nitrogen 57 mg/dL (7-20) Creatinine 2.5 mg/dL (0.6-1.0) Estimated GFR (Cockcroft-Gault) 22.0 BUN/Creatinine Ratio 23 (6-20) Glucose Level 281 mg/dL (70-99) Calcium Level 9.7 mg/dL (8.5-10.1) Magnesium Level 2.0 mg/dL (1.8-2.4) Total Bilirubin 0.3 mg/dL (0.2-1.0) Aspartate Amino Transf (AST/SGOT) 20 U/L (15-37) Alanine Aminotransferase (ALT/SGPT) 16 U/L (14-59) Alkaline Phosphatase 55 U/L (46-116) Troponin I Quantitative < 0.017 ng/mL (0-0.055) CI-Rqc-R-Type Natriuretic Peptide 1213 pg/mL (0-449) Total Protein 7.7 g/dL (6.4-8.2) Albumin 3.5 g/dL (3.4-5.0) Albumin/Globulin Ratio 0.8 (1.0-1.7) Urine Collection Type Unknown Urine Color Yellow Urine Clarity Hazy Urine pH 5.0 Urine Specific [place] 1.010 Urine Protein 100 mg/dl (NEG-TRACE) Urine Glucose (UA) Neg mg/dL (NEG) Urine Ketones (Stick) Neg mg/dL (NEG) Urine Blood Neg (NEG) Urine Nitrite Neg (NEG) Urine Bilirubin Neg (NEG) Urine Urobilinogen Dipstick 0.2 mg/dL (0.2 mg/dL) Urine Leukocyte Esterase Neg (NEG) Urine RBC Occ /HPF (0-2) Urine WBC Occ /HPF (0-4) Urine Squamous Epithelial Cells Few /LPF Urine Bacteria 0 /HPF (0-FEW) Current Medications Medications (Trade) Dose Ordered Sig/Ruel Route PRN Reason Start Time Stop Time Status Last Admin Dose Admin Methylprednisolone Sodium Succinate (SOLU-Medrol 125MG VIAL) 125 mg 1X ONCE IV 07/03/17 13:15 07/03/17 13:16 DC 07/03/17 13:04 Albuterol/ Ipratropium (Duoneb) 3 ml 1X ONCE NEB 07/03/17 12:45 07/03/17 12:57 DC 07/03/17 13:15 Ondansetron HCl (Zofran) 4 mg PRN Q4HRS PRN IV NAUSEA/VOMITING 07/03/17 13:30 07/04/17 13:29 Fentanyl Citrate (Fentanyl 2ml Vial) 50 mcg PRN Q2HR PRN IV PAIN 07/03/17 13:30 07/04/17 13:29 Acetaminophen (Tylenol) 650 mg PRN Q6HRS PRN PO PAIN 07/03/17 15:45 Allopurinol (Zyloprim) 100 mg DAILY PO 07/04/17 09:00 Alprazolam (Xanax) 0.25 mg PRN TID PRN PO ANXIETY / AGITATION 07/03/17 15:45 Amlodipine Besylate (Norvasc) 10 mg DAILY PO 07/04/17 09:00 Apixaban (Eliquis) 2.5 mg BID PO 07/03/17 21:00 Atorvastatin Calcium (Lipitor) 10 mg HS PO 07/03/17 21:00 Furosemide (Lasix) 40 mg DAILY PO 07/04/17 09:00 Albuterol/ Ipratropium (Duoneb) 3 ml PRN Q6HRS PRN NEB SHORTNESS OF BREATH 07/03/17 15:45 Lidocaine (Lidoderm) 1 patch DAILY TD 07/04/17 09:00 Magnesium Oxide (Magnesium Oxide) 400 mg DAILY PO 07/04/17 09:00 Metolazone (Zaroxolyn) 2.5 mg 3X/WEEK PO 07/06/17 09:00 Nitroglycerin (Nitrostat) 0.4 mg PRN Q5MIN PRN SL CHEST PAIN 07/03/17 15:45 Pantoprazole Sodium (Protonix) 40 mg DAILYAC PO 07/04/17 07:30 Ropinirole HCl (Requip) 0.25 mg HS PO 07/03/17 21:00 Senna/Docusate Sodium (Senna Plus) 1 tab BID PO 07/03/17 21:00 Trazodone HCl (Desyrel) 50 mg HS PO 07/03/17 21:00 Glimepiride (Amaryl) 4 mg DAILY PO 07/04/17 09:00 Insulin Detemir (Levemir) 20 units BID SQ 07/03/17 21:00 Meclizine HCl (Antivert) 25 mg PRN TID PRN PO DIZZINESS 07/03/17 16:00 Metoprolol Tartrate (Lopressor) 25 mg BID PO 07/03/17 21:00 Vital Signs Date Time Temp Pulse Resp B/P (MAP) Pulse Ox O2 Delivery O2 Flow Rate FiO2 07/03/17 18:28 98.1 63 20 148/69 (95) 96 Room Air Portable chest, 07/03/2017: History: Chest pain, shortness of breath Comparison is made to a study from 04/21/2017. 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 The heart size and pulmonary vascularity are normal. There is calcific plaquing of the aorta. No pulmonary infiltrates are seen. There is no evidence of pleural fluid. IMPRESSION: No acute cardiopulmonary abnormality is detected. EKG: Paced rhythm, no ischemic changes HAL KOHLER MD Jul 03, 2017 18:51
[2017-07-03] MEDS: SENNOSIDES/DOCUSATE 8.6/50MG TABLET. PO SCH (20:26)
[2017-07-03] MEDS: APIXABAN 2.5 MG TABLET PO SCH (20:26)
[2017-07-03] MEDS: METOPROLOL TART IMMED RELEASE 25 MG TABLET PO SCH (20:26)
[2017-07-03] MEDS: INSULIN DETEMIR 300 UNITS/3 ML INSULN.PEN. SQ SCH (20:38)
[2017-07-03] MEDS ORDERED: ATORVASTATIN CALCIUM 10 MG TABLET. PO SCH (21:00)
[2017-07-03] MEDS ORDERED: traZODone 50 MG TABLET. PO SCH (21:00)
[2017-07-03] MEDS ORDERED: rOPINIRole 0.25 MG TABLET. PO SCH (21:00)
[2017-07-03] MEDS ORDERED: INSULIN ASPART 300 UNITS/3 ML INSULN.PEN SQ ONE ×2 (22:45→23:45)
[2017-07-03 23:19] VITALS: BP 144/78
[2017-07-04] MEDS ORDERED: INSULIN ASPART 300 UNITS/3 ML INSULN.PEN SQ ONE ×2 (00:45→12:30)
[2017-07-04 03:54] LABS: BASO % 0 % (0-3); EOS % 0 % (0-3); HEMATOCRIT 32.9 % (36.0-47.0); HEMOGLOBIN 10.9 g/dL (12.0-15.5); LYMPH # 1.1 x10^3/uL (1.0-4.8); LYMPH % 14 % (24-48); MEAN CORPUSCULAR HEMOGLOBIN 28 pg (25-35); MEAN CORPUSCULAR HGB CONC 33 g/dL (31-37); MEAN CORPUSCULAR VOLUME 85 fL (79-100); MONO # 0.1 x10^3/uL (0.0-1.1); MONO % 1 % (0-9); NEUT # 6.8 x10^3uL (1.8-7.7); NEUT % 85 % (31-73); PLATELET COUNT 171 x10^3/uL (140-400); RED BLOOD COUNT 3.86 x10^6/uL (3.50-5.40); RED CELL DISTRIBUTION WIDTH 15.6 % (11.5-14.5); WHITE BLOOD COUNT 7.9 x10^3/uL (4.0-11.0)
[2017-07-04 04:05] LABS: CALCIUM 9.2 mg/dL (8.5-10.1); CREATININE 2.6 mg/dL (0.6-1.0); GFR 21.1; POTASSIUM 4.1 mmol/L (3.5-5.1)
[2017-07-04 05:48] VITALS: BP 128/67
[2017-07-04] MEDS ORDERED: PANTOPRAZOLE 40 MG TABLET. PO SCH (07:30)
[2017-07-04] MEDS: SENNOSIDES/DOCUSATE 8.6/50MG TABLET. PO SCH (08:17)
[2017-07-04] MEDS: APIXABAN 2.5 MG TABLET PO SCH (08:17)
[2017-07-04] MEDS: METOPROLOL TART IMMED RELEASE 25 MG TABLET PO SCH (08:18)
[2017-07-04] MEDS: INSULIN DETEMIR 300 UNITS/3 ML INSULN.PEN. SQ SCH (08:25)
[2017-07-04] MEDS ORDERED: MAGNESIUM OXIDE 400 MG TABLET PO SCH (09:00)
[2017-07-04] MEDS ORDERED: FUROSEMIDE 40 MG TABLET PO SCH (09:00)
[2017-07-04] MEDS ORDERED: amLODIPine BESYLATE 10 MG TABLET PO SCH (09:00)
[2017-07-04] MEDS ORDERED: ALLOPURINOL 100 MG TABLET. PO SCH (09:00)
[2017-07-04] MEDS ORDERED: LIDOCAINE (700MG/PATCH) PATCH. TD SCH (09:00)
[2017-07-04] MEDS ORDERED: GLIMEPIRIDE 2 MG TABLET PO SCH (09:00)
--- NOTE | 2017-07-04 10:45 | PDOC3 ---
Discharge Summary Visit Information Final Diagnosis Problems Medical Problems: (1) Chest pain: mi RULED OUT Status: Acute Status: Acu Status: Acute (2) Renal insufficiency-HAS WORSENED- DIURETICS ADJUSTED #(STRESS RELATED TO MOVING OUT OF HER HOUSE (3) HYPERGLYCEMIA Status: Acute Problems: Brief Hospital Course Allergies Allergies Coded Allergies Type Severity Reaction Last Updated Verified Influenza Virus Vaccines Allergy Intermediate GENERALIZED BODY/JOINT ACHES 10/07 Yes Penicillins Allergy Intermediate NAUSEA/VOMITING 10/07/16 Yes amoxicillin Allergy Intermediate Nausea/Vomiting 10/07/16 Yes cephalexin Allergy Intermediate Nausea/Vomiting 10/07/16 Yes clavulanic acid Allergy Intermediate Nausea/Vomiting 10/07/16 Yes metoclopramide Allergy Intermediate NAUSEA/VOMITING 10/07/16 Yes Vital Signs Vital Signs Date Time Temp Pulse Resp B/P (MAP) Pulse Ox O2 Delivery O2 Flow Rate FiO2 07/04/17 08:18 65 128/67 07/04/17 05:48 20 97 Room Air 07/03/17 23:19 97.5 Lab Results Laboratory Tests Test 07/03/17 11:40 07/03/17 12:05 07/03/17 18:19 07/03/17 20:36 White Blood Count 7.1 x10^3/uL (4.0-11.0) Red Blood Count 3.86 x10^6/uL (3.50-5.40) Hemoglobin 10.9 g/dL (12.0-15.5) Hematocrit 33.1 % (36.0-47.0) Mean Corpuscular Volume 86 fL (79-100) Mean Corpuscular Hemoglobin 28 pg (25-35) Mean Corpuscular Hemoglobin Concent 33 g/dL (31-37) Red Cell Distribution Width 15.5 % (11.5-14.5) Platelet Count 172 x10^3/uL (140-400) Neutrophils (%) (Auto) 65 % (31-73) Lymphocytes (%) (Auto) 26 % (24-48) Monocytes (%) (Auto) 6 % (0-9) Eosinophils (%) (Auto) 2 % (0-3) Basophils (%) (Auto) 1 % (0-3) Neutrophils # (Auto) 4.6 x10^3uL (1.8-7.7) Lymphocytes # (Auto) 1.9 x10^3/uL (1.0-4.8) Monocytes # (Auto) 0.4 x10^3/uL (0.0-1.1) Eosinophils # (Auto) 0.1 x10^3/uL (0.0-0.7) Basophils # (Auto) 0.1 x10^3/uL (0.0-0.2) Prothrombin Time 10.3 SEC (9.4-11.4) Prothromb Time International Ratio 1.0 (0.9-1.1) Activated Partial Thromboplast Time 26 SEC (23-33) Sodium Level 138 mmol/L (136-145) Potassium Level 4.4 mmol/L (3.5-5.1) Chloride Level 99 mmol/L (98-107) Carbon Dioxide Level 30 mmol/L (21-32) Anion Gap 9 (6-14) Blood Urea Nitrogen 57 mg/dL (7-20) Creatinine 2.5 mg/dL (0.6-1.0) Estimated GFR (Cockcroft-Gault) 22.0 BUN/Creatinine Ratio 23 (6-20) Glucose Level 281 mg/dL (70-99) Calcium Level 9.7 mg/dL (8.5-10.1) Magnesium Level 2.0 mg/dL (1.8-2.4) Total Bilirubin 0.3 mg/dL (0.2-1.0) Aspartate Amino Transf (AST/SGOT) 20 U/L (15-37) Alanine Aminotransferase (ALT/SGPT) 16 U/L (14-59) Alkaline Phosphatase 55 U/L (46-116) Troponin I Quantitative < 0.017 ng/mL (0-0.055) < 0.017 ng/mL (0-0.055) KS-Ceg-U-Type Natriuretic Peptide 1213 pg/mL (0-449) Total Protein 7.7 g/dL (6.4-8.2) Albumin 3.5 g/dL (3.4-5.0) Albumin/Globulin Ratio 0.8 (1.0-1.7) Urine Collection Type Unknown Urine Color Yellow Urine Clarity Hazy Urine pH 5.0 Urine Specific [place] 1.010 Urine Protein 100 mg/dl (NEG-TRACE) Urine Glucose (UA) Neg mg/dL (NEG) Urine Ketones (Stick) Neg mg/dL (NEG) Urine Blood Neg (NEG) Urine Nitrite Neg (NEG) Urine Bilirubin Neg (NEG) Urine Urobilinogen Dipstick 0.2 mg/dL (0.2 mg/dL) Urine Leukocyte Esterase Neg (NEG) Urine RBC Occ /HPF (0-2) Urine WBC Occ /HPF (0-4) Urine Squamous Epithelial Cells Few /LPF Urine Bacteria 0 /HPF (0-FEW) Glucose (Fingerstick) 491 mg/dL (70-99) Test 07/03/17 22:28 07/03/17 23:36 07/04/17 00:42 07/04/17 02:15 Glucose (Fingerstick) 529 mg/dL (70-99) 497 mg/dL (70-99) 458 mg/dL (70-99) White Blood Count 7.9 x10^3/uL (4.0-11.0) Red Blood Count 3.86 x10^6/uL (3.50-5.40) Hemoglobin 10.9 g/dL (12.0-15.5) Hematocrit 32.9 % (36.0-47.0) Mean Corpuscular Volume 85 fL (79-100) Mean Corpuscular Hemoglobin 28 pg (25-35) Mean Corpuscular Hemoglobin Concent 33 g/dL (31-37) Red Cell Distribution Width 15.6 % (11.5-14.5) Platelet Count 171 x10^3/uL (140-400) Neutrophils (%) (Auto) 85 % (31-73) Lymphocytes (%) (Auto) 14 % (24-48) Monocytes (%) (Auto) 1 % (0-9) Eosinophils (%) (Auto) 0 % (0-3) Basophils (%) (Auto) 0 % (0-3) Neutrophils # (Auto) 6.8 x10^3uL (1.8-7.7) Lymphocytes # (Auto) 1.1 x10^3/uL (1.0-4.8) Monocytes # (Auto) 0.1 x10^3/uL (0.0-1.1) Eosinophils # (Auto) 0.0 x10^3/uL (0.0-0.7) Basophils # (Auto) 0.0 x10^3/uL (0.0-0.2) Sodium Level 134 mmol/L (136-145) Potassium Level 4.1 mmol/L (3.5-5.1) Chloride Level 96 mmol/L (98-107) Carbon Dioxide Level 25 mmol/L (21-32) Anion Gap 13 (6-14) Blood Urea Nitrogen 59 mg/dL (7-20) Creatinine 2.6 mg/dL (0.6-1.0) Estimated GFR (Cockcroft-Gault) 21.1 Glucose Level 411 mg/dL (70-99) Calcium Level 9.2 mg/dL (8.5-10.1) Troponin I Quantitative < 0.017 ng/mL (0-0.055) Test 07/04/17 05:41 07/04/17 07:41 Glucose (Fingerstick) 222 mg/dL (70-99) 186 mg/dL (70-99) Brief Hospital Course Ms. Noriega is a 87 old [sex] who presented with [ ] Pt states that she gained 10 pounds overnight. Today, she was feeling a "fullness" in her chest that she was concerned was her heart, as it has felt that way before when she has "too much fluid." She says she is feeling much better now. She denies any medication changes recently, or dietary changes. She admits she has been under a lot of stress lately as she is trying to decide whether to sell her house and move in to her son's house. She says this makes her sad to think about. She denies leg swelling, hemoptysis, fever, dizziness, headache, n/v, abd pain, diarrhea, rash, weakness, numbness, or cough. IL RULED OUT. THIS WAS MOST LILELY COSTOCHRONDRITIIS, STRESS RELATED. HER TROPONINS WERE NEGATIVE. CXR NEGATIVE FOR CHF. HER WEIGHT WAS ACTUALLY BELOW HER MARY ADMISSION WEIGHT. HER BNP WAS MUCH LOWER THAN IT USUALLY IS.. HER KIDNEY FUNCTION HAS WORSENENED AND iI CUT HER METALAZONE IN HALF. SHE WILL LET DR. AGUIRRE KNOW ABOUT THAT. PE: TONGUE SLIGHTLY DRY, NECK SUPPLE, LUNGS CLEAR IN ALL WAYNE. CVRRR WITH 2-3/ 6 SYSTOLIC MURMUR, EXTREMETIES WITHOUR EDEMA Discharge Information Condition at Discharge: Improved Disposition/Orders: D/C to Home Dischare Medications Current Medications Methylprednisolone Sodium Succinate (SOLU-Medrol 125MG VIAL) 125 mg 1X ONCE IV Last administered on 07/03/17 13:04; Start 07/03/17 at 13:15; Stop 07/03/17 at 13:16; Status DC Albuterol/ Ipratropium (Duoneb) 3 ml 1X ONCE NEB Last administered on 13:15; Start 07/03/17 at 12:45; Stop 07/03/17 at 12:57; Status DC Ondansetron HCl (Zofran) 4 mg PRN Q4HRS PRN IV NAUSEA/VOMITING; Start 07/03/17 at 13:30; Stop 07/04/17 at 13:29 Fentanyl Citrate (Fentanyl 2ml Vial) 50 mcg PRN Q2HR PRN IV PAIN; Start at 13:30; Stop 07/04/17 at 07:34; Status DC Acetaminophen (Tylenol) 650 mg PRN Q6HRS PRN PO PAIN; Start 07/03/17 at 15:45 Allopurinol (Zyloprim) 100 mg DAILY PO Last administered on 07/04/17 08:19; Start 07/04/17 at 09:00 Alprazolam (Xanax) 0.25 mg PRN TID PRN PO ANXIETY / AGITATION Last administered on 07/03/17 20:26; Start 07/03/17 at 15:45 Amlodipine Besylate (Norvasc) 10 mg DAILY PO Last administered on 07/04/17 08: 18; Start 07/04/17 at 09:00 Apixaban (Eliquis) 2.5 mg BID PO Last administered on 07/04/17 08:17; Start 07/03/17 at 21:00 Atorvastatin Calcium (Lipitor) 10 mg HS PO Last administered on 07/03/17 20:26 ; Start 07/03/17 at 21:00 Furosemide (Lasix) 40 mg DAILY PO Last administered on 07/04/17 08:18; Start 07/04/17 at 09:00 Albuterol/ Ipratropium (Duoneb) 3 ml PRN Q6HRS PRN NEB SHORTNESS OF BREATH; Start 07/03/17 at 15:45 Lidocaine (Lidoderm) 1 patch DAILY TD ; Start 07/04/17 at 09:00 Magnesium Oxide (Magnesium Oxide) 400 mg DAILY PO Last administered on 08:17; Start 07/04/17 at 09:00 Metolazone (Zaroxolyn) 2.5 mg 3X/WEEK PO ; Start 07/06/17 at 09:00; Stop at 09:00; Status DC Nitroglycerin (Nitrostat) 0.4 mg PRN Q5MIN PRN SL CHEST PAIN; Start 07/03/17 at 15:45 Pantoprazole Sodium (Protonix) 40 mg DAILYAC PO Last administered on 07/04/17 08:18; Start 07/04/17 at 07:30 Ropinirole HCl (Requip) 0.25 mg HS PO Last administered on 07/03/17 20:27; Start 07/03/17 at 21:00 Senna/Docusate Sodium (Senna Plus) 1 tab BID PO Last administered on 07/04/17 08:17; Start 07/03/17 at 21:00 Trazodone HCl (Desyrel) 50 mg HS PO Last administered on 07/03/17 20:26; Start 07/03/17 at 21:00 Glimepiride (Amaryl) 4 mg DAILY PO Last administered on 07/04/17 08:18; Start 07/04/17 at 09:00 Insulin Detemir (Levemir) 20 units BID SQ Last administered on 07/04/17 08:25 ; Start 07/03/17 at 21:00 Meclizine HCl (Antivert) 25 mg PRN TID PRN PO DIZZINESS; Start 07/03/17 at 16: 00 Metoprolol Tartrate (Lopressor) 25 mg BID PO Last administered on 07/04/17 08: 18; Start 07/03/17 at 21:00 Insulin Aspart (NovoLOG) 10 units 1X ONCE SQ Last administered on 07/03/17 22 :40; Start 07/03/17 at 22:45; Stop 07/03/17 at 22:46; Status DC Insulin Aspart (NovoLOG) 10 units 1X ONCE SQ Last administered on 07/03/17 23 :43; Start 07/03/17 at 23:45; Stop 07/04/17 at 00:43; Status DC Insulin Aspart (NovoLOG) 10 units 1X ONCE SQ Last administered on 07/04/17t 00 :51; Start 07/04/17 at 00:45; Stop 07/04/17 at 00:49; Status DC Metolazone (Zaroxolyn) 1.25 mg 3X/WEEK PO ; Start 07/06/17 at 09:00 Active Scripts Active Trazodone Hcl 50 Mg Tablet 50 Mg PO HS 90 Days Requip (Ropinirole Hcl) 0.25 Mg Tablet 0.25 Mg PO HS 90 Days Pantoprazole Sodium 40 Mg Tablet.dr 40 Mg PO DAILYAC 90 Days Lidocaine 1 Each Adh..patch 1 Patch TD DAILY 60 Days Metolazone 2.5 Mg Tablet 2.5 Mg PO 3X/WEEK 90 Days Allopurinol 100 Mg Tablet 1 Tab PO DAILY Amlodipine Besylate 5 Mg Tablet 10 Mg PO DAILY 90 Days LAST DOSE GIVEN: DATE: 01/01/17 TIME: 0900 NEXT DOSE DUE: DATE: 01/02/17 TIME: 0900 Reported Meclizine Hcl 25 Mg Tablet 1 Tab PO PRN TID NEXT DOSE DUE: DATE: TODAY TIME: IF NEEDED Duoneb 0.5-3(2.5) Mg/3 Ml (Albuterol/Ipratropium) 3 Ml Ampul.neb 3 Ml NEB PRN Q6HRS PRN LAST DOSE GIVEN: DATE: TODAY TIME: AM NEXT DOSE DUE: DATE: TODAY TIME: AFTERNOON Atorvastatin Calcium 10 Mg Tablet 1 Tab PO HS LAST DOSE GIVEN: DATE: YESTER TIME: AT BEDTIME NEXT DOSE DUE: DATE: TODAY TIME: AT BEDTIME Tylenol (Acetaminophen) 325 Mg Tablet 2 Tab PO PRN Q6HRS PRN NEXT DOSE DUE: DATE: TODAY TIME: IF NEEDED Senokot-S Tablet (Sennosides/Docusate Sodium) 1 Each Tablet 1 Tab PO BID LAST DOSE GIVEN: DATE: TODAY TIME: AM NEXT DOSE DUE: DATE: TODAY TIME: PM Bystolic (Nebivolol Hcl) 5 Mg Tablet 1 Tab PO HS LAST DOSE GIVEN: DATE: YESAY TIME: AT BEDTIME NEXT DOSE DUE: DATE: TODAY TIME: AT BEDTIME Magnesium Oxide 400 Mg Tablet 1 Tab PO DAILY LAST DOSE GIVEN: DATE: TODAY TIME: AM NEXT DOSE DUE: DATE: TOMORROW TIME: AM Glimepiride 4 Mg Tablet 1 Tab PO DAILY LAST DOSE GIVEN: DATE: TODAY TIME: AM NEXT DOSE DUE: DATE: TOMORR TIME: AM Furosemide 40 Mg Tablet 1 Tab PO DAILY LAST DOSE GIVEN: DATE: TODAY TIME: AM NEXT DOSE DUE: DATE: TOMORR TIME: AM NITROGLYCERIN SubLingual (Nitroglycerin) 0.4 Mg Tab.subl 0.4 Mg SL PRN Q5MIN PRN NEXT DOSE DUE: DATE: TIME: IF NEEDED NEXT DOSE DUE: DATE: as needed for chest pain TIME: Xanax (Alprazolam) 0.25 Mg Tablet 0.25 Mg PO PRN TID PRN NEXT DOSE DUE: DATE: TIME: IF NEEDED NEXT DOSE DUE: DATE: 01/02/17 TIME: 0900 Levemir (Insulin Detemir) 100 Unit/1 Ml Vial 20 Unit SQ BID LAST DOSE GIVEN: DATE: YESTER TIME: AT BEDTIME NEXT DOSE DUE: DATE: TODAY TIME: AT BEDTIME Eliquis (Apixaban) 2.5 Mg Tablet 2.5 Mg PO BID LAST DOSE GIVEN: DATE: TIME: AM NEXT DOSE DUE: DATE: TODAY TIME: PM Vitamin D (Cholecalciferol (Vitamin D3)) 2,000 Unit Capsule 5,000 Unit PO WEEKLY Continue taking on your weekly schedule DATE: 04/18/17 TIME: 0900 NEXT DOSE DUE: DATE: 04/25/17 TIME: 0900 Patient Instructions Patient Instuctions METALAZONE TO BE DECREASED TO 1.25 THREE TIMES A WEEK. ALL OTHER MEDICATIONS THE SAME. WARD ALCANTAR DO Jul 04, 2017 10:45
[2017-07-04 11:40] VITALS: BP 138/77
[2017-07-06] MEDS ORDERED: metOLazone 2.5 MG TABLET PO SCH ×2 (09:00)
== END 2017-07-04 18:19 | disposition home or self-care (01) | DRG 206 ==
LOC: ER 11:13 → 1 SOUTH 13:19
PROVIDERS: ADMIT Family Medicine; ATTEND Family Medicine
DX: M94.0 Chondrocostal junction syndrome [Tietze] (principal); E11.22 Type 2 diabetes mellitus with diabetic chronic kidney disease; E11.65 Type 2 diabetes mellitus with hyperglycemia; K31.84 Gastroparesis; N18.4 Chronic kidney disease, stage 4 (severe); I27.20 Pulmonary hypertension, unspecified; E11.43 Type 2 diabetes mellitus with diabetic autonomic (poly)neuropathy; I13.0 Hypertensive heart and chronic kidney disease with heart failure and stage 1 through stage 4 chronic kidney disease, or unspecified chronic kidney disease; J44.1 Chronic obstructive pulmonary disease with (acute) exacerbation; I50.9 Heart failure, unspecified; I25.10 Atherosclerotic heart disease of native coronary artery without angina pectoris; I48.91 Unspecified atrial fibrillation; Z96.649 Presence of unspecified artificial hip joint; Z96.659 Presence of unspecified artificial knee joint; F41.9 Anxiety disorder, unspecified; M19.90 Unspecified osteoarthritis, unspecified site; Z90.49 Acquired absence of other specified parts of digestive tract; Z86.73 Personal history of transient ischemic attack (TIA), and cerebral infarction without residual deficits; Z87.81 Personal history of (healed) traumatic fracture; Z88.1 Allergy status to other antibiotic agents; Z88.0 Allergy status to penicillin; Z88.8 Allergy status to other drugs, medicaments and biological substances; Z88.7 Allergy status to serum and vaccine
CPT/HCPCS: 36415; 71010; 80048; 80053; 81001; 82947; 83735; 83880; 84484; 85025; 85610; 85730; 93005; 94640; J1815; J2930; J7620

== ENCOUNTER 2017-07-15 17:02 | Inpatient (IN) | payer MEDICARE, OTHER ==
[~2017-07-15] VITALS: Ht 162.6 cm; Wt 82.6 kg
[~2017-07-15 17:02] MED LIST changes: -METO50TA2 PO; +METO50TA6 PO
--- NOTE | 2017-07-15 17:22 | RAD ---
CT Head W/O Contrast: History: CODE STROKE, DIZZINESS, SEVERE HEADACHE, HX OF STROKE
PRIOR CT HEAD SENT Comparison: March 28, 2015 Axial images were obtained without contrast. The mora and white matter appears normal and symmetrical for the patients age. There is no mass effect, extraaxial fluid collections or hydrocephalus. There is no gross bleed. There is no focal loss of mora-white matter distinction to suggest acute ischemia, i.e. stroke. Impression: No acute findings. These results were called to the Emergency Department and at the time of dictation. PQRS Compliance Statement: One or more of the following individualized dose reduction techniques were utilized for this examination: 1. Automated exposure control 2. Adjustment of the mA and/or kV according to patient size 3. Use of iterative reconstruction technique Electronically signed by: Hira Ruiz III, MD (07/15/2017 5:19 PM) [facility]
--- NOTE | 2017-07-15 17:31 | EKG ---
[address] [address] Test Date: 2017-07-15 Test Time: 17:22:04 Pat Name: CARINA TREADWELL Department: Room: Gender: F Pulmonary Function Technician: ALANA : 1930 Requested By: BRENDA DOMÍNGUEZ Order Number: [id number] Reading MD: Indra Waller MD Measurements Intervals [place] Rate: 71 P: -90 HI: 206 QRS: -66 QRSD: 202 T: 103 QT: 468 QTc: 509 Interpretive Statements V-PACING Electronically Signed On 07-21-2017 14:20:44 BOOSTER STATION OPERATOR by Indra Waller MD
[2017-07-15 18:07] LABS: BASO # 0.1 x10^3/uL (0.0-0.2); BASO % 1 % (0-3); EOS # 0.2 x10^3/uL (0.0-0.7); EOS % 2 % (0-3); HEMATOCRIT 34.4 % (36.0-47.0); HEMOGLOBIN 11.2 g/dL (12.0-15.5); LYMPH # 2.1 x10^3/uL (1.0-4.8); LYMPH % 27 % (24-48); MEAN CORPUSCULAR HEMOGLOBIN 28 pg (25-35); MEAN CORPUSCULAR HGB CONC 33 g/dL (31-37); MEAN CORPUSCULAR VOLUME 85 fL (79-100); MONO # 0.5 x10^3/uL (0.0-1.1); MONO % 6 % (0-9); NEUT % 64 % (31-73); PLATELET COUNT 167 x10^3/uL (140-400); RED BLOOD COUNT 4.07 x10^6/uL (3.50-5.40); WHITE BLOOD COUNT 7.8 x10^3/uL (4.0-11.0)
[2017-07-15 18:20] LABS: ALBUMIN 3.6 g/dL (3.4-5.0); ALBUMIN/GLOBULIN RATIO 0.9 (1.0-1.7); CALCIUM 9.9 mg/dL (8.5-10.1); CREATININE 2.3 mg/dL (0.6-1.0); GFR 24.3; POTASSIUM 4.1 mmol/L (3.5-5.1); TOTAL BILIRUBIN 0.2 mg/dL (0.2-1.0); TOTAL PROTEIN 7.6 g/dL (6.4-8.2)
[2017-07-15 18:40] LABS: COLOR,URINE COLORLESS
[2017-07-15 18:41] LABS: BACTERIA,URINE 0 /HPF (0-FEW); BILIRUBIN,URINE NEG (NEG); CLARITY,URINE CLEAR; GLUCOSE,URINE NEG (NEG); NITRITE,URINE NEG (NEG); RBC,URINE OCC /HPF (0-2); SQUAMOUS EPITHELIAL CELL,UR MOD /LPF; UROBILINOGEN,URINE 0.2 mg/dL (0.2 mg/dL); WBC,URINE OCC /HPF (0-4)
[2017-07-15] MEDS ORDERED: ONDANSETRON PF 4 MG/2 ML VIAL. IV PRN (19:30)
--- NOTE | 2017-07-15 20:05 | PHYS DOC ---
Past History Past Medical History: A-Fib, Diabetes, Heart Disease, Hip Fracture, Hypertension, Other Past Surgical History: Appendectomy, Cholecystectomy, Hip Replacement, Knee Replacement, Pacemaker Alcohol Use: None Drug Use: None Adult General Chief Complaint Chief Complaint: WEAKNESS/GENERALIZED HPI HPI Patient is a 87-year-old female presenting to the emergency department with family for evaluation of the beer onset headache with left-sided weakness. Symptoms started this morning shortly after she woke up and she had severe left head pain and she says that she could not move the left side of her body very well for approximately one to 2 hours. She reportedly received some orange juice and was feeling better afterwards but there is no blood glucose that was checked. Patient says that the headache and weakness has slowly resolved and she is not having any pain currently. She says that she was having some nausea but no vomiting fevers chills vision changes difficulty speaking with this episode. Patient is in no obvious distress with normal vital signs. There is some social problems as son was out in waiting room making a racket, yelling at staff. Daughter states that patient lives with son and he is making her very stressed. When patient heard about son's behavior she was crying and difficult to console. Review of Systems Review of Systems Constitutional: Denies fever or chills [] Eyes: Denies change in visual acuity, redness, or eye pain [] HENT: Denies nasal congestion or sore throat [] Respiratory: Denies cough or shortness of breath [] Cardiovascular: No additional information not addressed in HPI [] GI: Denies abdominal pain, nausea, vomiting, bloody stools or diarrhea [] : Denies dysuria or hematuria [] Musculoskeletal: Denies back pain or joint pain [] Integument: Denies rash or skin lesions [] Neurologic: + headache, focal weakness. No sensory changes [] All other systems were reviewed and found to be within normal limits, except as documented in this note. Allergies Allergies Allergies Coded Allergies Type Severity Reaction Last Updated Verified Influenza Virus Vaccines Allergy Intermediate GENERALIZED BODY/JOINT ACHES 10/07 Yes Penicillins Allergy Intermediate NAUSEA/VOMITING 10/07/16 Yes amoxicillin Allergy Intermediate Nausea/Vomiting 10/07/16 Yes cephalexin Allergy Intermediate Nausea/Vomiting 10/07/16 Yes clavulanic acid Allergy Intermediate Nausea/Vomiting 10/07/16 Yes metoclopramide Allergy Intermediate NAUSEA/VOMITING 10/07/16 Yes Physical Exam Physical Exam Constitutional: Well developed, well nourished, no acute distress, non-toxic appearance. [] HENT: Normocephalic, atraumatic, bilateral external ears normal, oropharynx moist, no oral exudates, nose normal. [] Eyes: PERRLA, EOMI, conjunctiva normal, no discharge. [] Neck: Normal range of motion, no tenderness, supple, no stridor. [] Cardiovascular:Heart rate regular rhythm, no murmur [] Lungs & Thorax: Bilateral breath sounds clear to auscultation [] Abdomen: Bowel sounds normal, soft, no tenderness, no masses, no pulsatile masses. [] Skin: Warm, dry, no erythema, no rash. [] Back: No tenderness, no CVA tenderness. [] Extremities: No tenderness, no cyanosis, no clubbing, ROM intact, no edema. [] Neurologic: Alert and oriented X 3, 4 out of 5 strength with left upper and left lower extremity as she can only hold her left leg up for approximately 3 seconds before it started falling to the bed. 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 No signs of cerebellar dysfunction or sensory changes. Current Patient Data Lab Results Laboratory Tests Test 07/15/17 17:35 07/15/17 18:00 White Blood Count 7.8 x10^3/uL (4.0-11.0) Red Blood Count 4.07 x10^6/uL (3.50-5.40) Hemoglobin 11.2 g/dL (12.0-15.5) L Hematocrit 34.4 % (36.0-47.0) L Mean Corpuscular Volume 85 fL (79-100) Mean Corpuscular Hemoglobin 28 pg (25-35) Mean Corpuscular Hemoglobin Concent 33 g/dL (31-37) Red Cell Distribution Width 16.0 % (11.5-14.5) H Platelet Count 167 x10^3/uL (140-400) Neutrophils (%) (Auto) 64 % (31-73) Lymphocytes (%) (Auto) 27 % (24-48) Monocytes (%) (Auto) 6 % (0-9) Eosinophils (%) (Auto) 2 % (0-3) Basophils (%) (Auto) 1 % (0-3) Neutrophils # (Auto) 5.0 x10^3uL (1.8-7.7) Lymphocytes # (Auto) 2.1 x10^3/uL (1.0-4.8) Monocytes # (Auto) 0.5 x10^3/uL (0.0-1.1) Eosinophils # (Auto) 0.2 x10^3/uL (0.0-0.7) Basophils # (Auto) 0.1 x10^3/uL (0.0-0.2) Sodium Level 140 mmol/L (136-145) Potassium Level 4.1 mmol/L (3.5-5.1) Chloride Level 102 mmol/L (98-107) Carbon Dioxide Level 28 mmol/L (21-32) Anion Gap 10 (6-14) Blood Urea Nitrogen 60 mg/dL (7-20) H Creatinine 2.3 mg/dL (0.6-1.0) H Estimated GFR (Cockcroft-Gault) 24.3 BUN/Creatinine Ratio 26 (6-20) H Glucose Level 163 mg/dL (70-99) H Lactic Acid Level 1.2 mmol/L (0.4-2.0) Calcium Level 9.9 mg/dL (8.5-10.1) Total Bilirubin 0.2 mg/dL (0.2-1.0) Aspartate Amino Transferase (AST) 19 U/L (15-37) Alanine Aminotransferase (ALT) 17 U/L (14-59) Alkaline Phosphatase 52 U/L (46-116) Troponin I Quantitative 0.027 ng/mL (0-0.055) TS-Gzc-G-Type Natriuretic Peptide 1612 pg/mL (0-449) H Total Protein 7.6 g/dL (6.4-8.2) Albumin 3.6 g/dL (3.4-5.0) Albumin/Globulin Ratio 0.9 (1.0-1.7) L Urine Collection Type Unknown Urine Color Colorless Urine Clarity Clear Urine pH 5.0 Urine Specific [place] <=1.005 Urine Protein Trace (NEG-TRACE) Urine Glucose (UA) Neg mg/dL (NEG) Urine Ketones (Stick) Neg mg/dL (NEG) Urine Blood Trace (NEG) Urine Nitrite Neg (NEG) Urine Bilirubin Neg (NEG) Urine Urobilinogen Dipstick 0.2 mg/dL (0.2 mg/dL) Urine Leukocyte Esterase Neg (NEG) Urine RBC Occ /HPF (0-2) Urine WBC Occ /HPF (0-4) Urine Squamous Epithelial Cells Mod /LPF Urine Bacteria 0 /HPF (0-FEW) EKG EKG Sinus rhythm with no obvious ST elevation or depression and normal T waves. Radiology/Procedures Radiology/Procedures CT Head W/O Contrast: History: CODE STROKE, DIZZINESS, SEVERE HEADACHE, HX OF STROKE
PRIOR CT HEAD SENT Comparison: March 28, 2015 Axial images were obtained without contrast. The mora and white matter appears normal and symmetrical for the patients age. There is no mass effect, extraaxial fluid collections or hydrocephalus. There is no gross bleed. There is no focal loss of mora-white matter distinction to suggest acute ischemia, i.e. stroke. Impression: No acute findings. These results were called to the Emergency Department and at the time of dictation. PQRS Compliance Statement: One or more of the following individualized dose reduction techniques were utilized for this examination: 1. Automated exposure control 2. Adjustment of the mA and/or kV according to patient size 3. Use of iterative reconstruction technique Electronically signed by: Rajani King III, MD (07/15/2017 5:19 PM) [facility] DICTATED AND SIGNED BY: RAJANI KING III, MD DATE: 07/15/17 171 Course & Med Decision Making Course & Med Decision Making Difficult to say if this is true transient ischemic attack hypoglycemic episode or more of a stress response. Patient is ready on aspirin and elequis so I don' t think there is much else to do as far stroke prevention. Daughter is insisting on admission. I asked why and she said more so for stress from living environment. Patient will be admitted in stable condition. Dragon Disclaimer Dragon Disclaimer This electronic medical record was generated, in whole or in part, using a voice recognition dictation system. Departure Departure: Impression: Primary Impression: TIA (transient ischemic attack) Additional Impression: Headache Disposition: ADMITTED INPATIENT Admitting Physician: Veronica Blair Condition: IMPROVED Referrals: PATRICIA COOPER MD (PCP) Problem Qualifiers Primary Impression: TIA (transient ischemic attack) Transient cerebral ischemia type: unspecified Qualified Codes: G45.9 - Transient cerebral ischemic attack, unspecified CAROL WOODS DO Jul 15, 2017 20:05
[2017-07-15 20:43] VITALS: BP 132/74
[2017-07-15] MEDS ORDERED: ALPRAZolam 0.25 MG TABLET PO PRN (20:45)
[2017-07-15] MEDS ORDERED: IPRATRPIUM/ALBUTEROL 0.5/2.5MG 3 ML NEBU. NEB PRN (20:45)
[2017-07-15] MEDS ORDERED: DEXTROSE 50% 25 GM / 50ML DISP.SYRIN. IV PRN (20:45)
[2017-07-15] MEDS ORDERED: NITROGLYCERIN SUBLINGUAL 0.4 MG BOTTLE OF 25. SL PRN (20:45)
[2017-07-15] MEDS: INSULIN ASPART 300 UNITS/3 ML INSULN.PEN SQ SCH (21:00)
[2017-07-15] MEDS ORDERED: MECLIZINE 12.5 MG TABLET. PO PRN (21:00)
[2017-07-15] MEDS: ATORVASTATIN CALCIUM 10 MG TABLET. PO SCH (21:14)
[2017-07-15] MEDS: traZODone 50 MG TABLET. PO SCH (21:14)
[2017-07-15] MEDS: ACETAMINOPHEN 500 MG TABLET PO PRN (21:14)
[2017-07-15] MEDS: SENNOSIDES/DOCUSATE 8.6/50MG TABLET. PO SCH (21:14)
[2017-07-15] MEDS: METOPROLOL TART IMMED RELEASE 25 MG TABLET PO SCH (21:14)
[2017-07-15] MEDS: rOPINIRole 0.25 MG TABLET. PO SCH (21:15)
[2017-07-15] MEDS: APIXABAN 2.5 MG TABLET PO SCH (21:15)
[2017-07-15] MEDS: HYDROcodone/APAP 5/325MG 1 TAB TABLET PO PRN (21:15)
[2017-07-15] MEDS: INSULIN DETEMIR 300 UNITS/3 ML INSULN.PEN. SQ SCH (21:20)
[2017-07-15 23:00] VITALS: BP 131/68
[2017-07-16] VITALS (7 sets, daily range): BP systolic 96–128; BP diastolic 59–80
[2017-07-16 06:06] LABS: BASO # 0.1 x10^3/uL (0.0-0.2); BASO % 1 % (0-3); EOS # 0.1 x10^3/uL (0.0-0.7); EOS % 2 % (0-3); HEMATOCRIT 31.2 % (36.0-47.0); HEMOGLOBIN 10.3 g/dL (12.0-15.5); LYMPH # 2.2 x10^3/uL (1.0-4.8); LYMPH % 32 % (24-48); MEAN CORPUSCULAR HEMOGLOBIN 28 pg (25-35); MEAN CORPUSCULAR HGB CONC 33 g/dL (31-37); MEAN CORPUSCULAR VOLUME 85 fL (79-100); MONO # 0.4 x10^3/uL (0.0-1.1); MONO % 6 % (0-9); NEUT # 4.2 x10^3uL (1.8-7.7); NEUT % 59 % (31-73); PLATELET COUNT 145 x10^3/uL (140-400); RED BLOOD COUNT 3.68 x10^6/uL (3.50-5.40); RED CELL DISTRIBUTION WIDTH 15.9 % (11.5-14.5)
[2017-07-16 06:09] LABS: CALCIUM 9.2 mg/dL (8.5-10.1); CREATININE 2.8 mg/dL (0.6-1.0); GFR 19.3
[2017-07-16] MEDS: INSULIN ASPART 300 UNITS/3 ML INSULN.PEN SQ SCH ×4 (07:30→20:38)
[2017-07-16] MEDS: APIXABAN 2.5 MG TABLET PO SCH ×2 (08:34→20:30)
[2017-07-16] MEDS: SENNOSIDES/DOCUSATE 8.6/50MG TABLET. PO SCH ×2 (08:34→20:30)
[2017-07-16] MEDS: MAGNESIUM OXIDE 400 MG TABLET PO SCH (08:35)
[2017-07-16] MEDS: GLIMEPIRIDE 2 MG TABLET PO SCH (08:39)
[2017-07-16] MEDS: ALLOPURINOL 100 MG TABLET. PO SCH (08:40)
[2017-07-16] MEDS: PANTOPRAZOLE 40 MG TABLET. PO SCH (08:47)
[2017-07-16] MEDS ORDERED: amLODIPine BESYLATE 5 MG TABLET PO SCH (09:00)
[2017-07-16] MEDS ORDERED: FUROSEMIDE 40 MG TABLET PO SCH (09:00)
[2017-07-16] MEDS: INSULIN DETEMIR 300 UNITS/3 ML INSULN.PEN. SQ SCH ×2 (09:00→20:38)
[2017-07-16] MEDS: METOPROLOL TART IMMED RELEASE 25 MG TABLET PO SCH ×2 (09:00→20:29)
[2017-07-16] MEDS: LIDOCAINE (700MG/PATCH) PATCH. TD SCH (09:03)
--- NOTE | 2017-07-16 13:21 | HP ---
ADMIT DATE: 07/15/2017 REASON FOR ADMISSION: Stroke-like symptoms, headache. HISTORY OF PRESENT ILLNESS: This is an 87-year-old female who has multiple medical problems who presented to the Emergency Room complaining of severe headache, which she described as left-sided weakness and some difficulty ambulating, it started yesterday morning and continued throughout the day. However, she did not seek care at that time. She stated that she could not move the left side of her body for about 2 hours yesterday. She drank some orange juice and said that it made it better, but her blood sugar was not checked. The weakness and the headache slowly got better. She describes the headache is left-sided with no change in her vision. She had some left-sided weakness. She thought she was having some spasms as well. She recently saw Dr. Dunn who told her to take some nitroglycerin if she had chest pain. PAST MEDICAL HISTORY: She has had multiple episodes of acute on chronic congestive heart failure, status post left total hip arthroplasty in April 2017, fall risk, type 2 diabetes, chronic kidney disease stage 3, long-term use of anticoagulants, coronary artery disease, paroxysmal atrial fibrillation, pacemaker status, anemia, hyperuricemia, history of stroke, and hypertension. PAST SURGICAL HISTORY: Appendectomy, cholecystectomy, left total hip arthroplasty, knee replacement, pacemaker. SOCIAL HISTORY: The patient is in the process of moving to another house with her son. This has caused quite a deal of stress for her. She has been doing some packing and lifting up some boxes, not heavy boxes, but has been doing some lifting and more activity than she used to doing. ALLERGIES: INFLUENZA VIRUS, PENICILLIN, AMOXICILLIN, CEPHALEXIN, CLAVULANIC ACID AND REGLAN. MEDICATIONS: Unchanged since her previous admission. REVIEW OF SYSTEMS: Positive for some shortness of breath, left-sided chest pain, left-sided headache, split down the middle. No change in her vision, no sore throat, no fever, no chills. Negative bowel or bladder issues. Positive weakness in her legs and decreased strength. OBJECTIVE: VITAL SIGNS: Blood pressure lower than normal for her 100/60, pulse 60, respirations 20, temperature 98.5, pulse ox 95% on room air. Height 64 inches, weight 178.38 pounds. GENERAL: Pleasant elderly female, in no acute distress. She is mildly anxious. HEENT: The pupils were equal, round, react to light. Extraocular muscles were intact. The patient has some slight vision changes in the left eye, which she could not really describe. Scalp is mildly tender, posterior neck tender in the left occipital area. There were no carotid bruits. LUNGS: Clear to auscultation. CARDIOVASCULAR: Regular rhythm and rate with 2/6 systolic murmur. ABDOMEN: Soft, nontender. EXTREMITIES: Without edema. NEUROLOGIC: Cranial nerves appear to be intact. Really, there is no facial droop or weakness. 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 Good motor. There is Babinski on the left. Also, her gait is abnormal and weak. LABORATORY DATA: Hemoglobin 10.3, hematocrit 31.2. Chemistry: BUN 61, creatinine 2.8 about the same, GFR of 19.3, glucose is 160, 173, fasting of 95. Urinalysis, negative. CT of the head, there is no mass effect or acute bleed to suggest stroke. The patient is not a candidate for MRI due to old pacemaker. ASSESSMENT: 1. Stroke-like symptoms with abnormal gait, possible posterior stroke. 2. History of cerebrovascular accident. 3. History of left carotid artery disease. 4. Headache is better now. 5. Hypertension, hypotensive today. 6. Long-term use of anticoagulants. 7. Coronary artery disease. 8. Status post left total hip arthroplasty. 9. Normochromic normocytic anemia. 10. Mildly hypotensive. PLAN: Dr. Reynoso has been consulted. She will need rehab for this new onset of abnormal gait and weakness. Carotid studies have been ordered and Cardiology has been consulted regarding the low blood pressure. WARD ALCANTAR DO DR: CHANG/deepak JOB#: [id number] / [id number]
--- NOTE | 2017-07-16 15:13 | RAD ---
Exam : Carotid Duplex with Grayscale Ultrasound and Spectral and Color Doppler Analysis: Clinical Indications: Carotid stenosis. Comparison study: None available. PQRS Compliance Statement - Stenosis calculations for CT, MR and conventional angiography are based upon measurement of the distal ICA diameter in accordance with the NASCET methodology. Stenosis calculations for carotid ultrasound studies are derived from validated velocity criteria which are known to correlate with the NASCET methodology. Findings: The common, internal and external carotid arteries were examined by grayscale, color and spectral Doppler ultrasound. Diffuse atherosclerotic vascular disease is noted. Flow in both vertebral arteries was antegrade and normal. The following are the velocities and ratios in the carotid arteries on both sides: RIGHT ICA PV: 81cm/sec RIGHT CCA PV: 75cm/sec RIGHT ICA ED: 21cm/sec RIGHT IC/CCPV: 1.1 RIGHT VERTEBRAL: antegrade flow RIGHT % STENOSIS: [Less than 50%] LEFT ICA PV: 105cm/sec LEFT CCA PV: 74cm/sec LEFT ICA ED: 28cm/sec LEFT IC/CCPV: 1.4 LEFT VERTEBRAL: antegrade flow LEFT % STENOSIS: [Less than 50%] <50% ICA Stenosis: PSV < 125cm/s (EDV < 40cm/s; SVR < 2.0) 50-69% ICA Stenosis: PSV < 125-229cm/s (EDV 40-99cm/s; SVR 2.0-3.9) >70% ICA Stenosis: PSV > 230cm/s (EDV >100cm/s; SVR >4.0) Impression: Diffuse atherosclerotic vascular disease with less than 50% stenosis of the bilateral internal carotid arteries by ultrasound criteria.
[2017-07-16] MEDS: ATORVASTATIN CALCIUM 10 MG TABLET. PO SCH (20:28)
[2017-07-16] MEDS: traZODone 50 MG TABLET. PO SCH (20:29)
[2017-07-16] MEDS: rOPINIRole 0.25 MG TABLET. PO SCH (20:30)
[2017-07-16] MEDS: HYDROcodone/APAP 5/325MG 1 TAB TABLET PO PRN (20:34)
--- NOTE | 2017-07-17 01:02 | CONS ---
DATE OF CONSULTATION: 07/15/2017 NEUROLOGIC CONSULTATION REFERRING PHYSICIAN: Veronica Blair DO REASON FOR CONSULTATION: Weakness of the left side and dizziness. HISTORY OF PRESENT ILLNESS: This is an 87-year-old right-handed -[place] female who was admitted through Emergency Room yesterday after she presented with chief complaints of increased weakness of the left upper and lower extremities and dizziness. She also complains of generalized weakness. The patient woke up yesterday morning and able to walk for approximately 2 hours. The patient also complains of left-sided headaches radiating into the neck and left shoulder blade. She denies visual disturbances, dysphagia, dysarthria or paraesthesia. The patient also complains of exertional dyspnea, but no chest pain or palpitations. On arrival to the Emergency Room, her blood pressure was 146/80. Initial nonenhanced head CT scan revealed no evidence of acute intracranial process. PAST MEDICAL HISTORY: Quite extensive, includes coronary artery disease status post stent placement in 2014. She underwent cardiac catheterization in 09/2016, which revealed stenosis of 20% of LAD with patent stent and 80% stenosis in the ostium of the left circumflex, history of DVT and paroxysmal atrial, status post pacemaker placement, hypertension, hyperlipidemia, diabetes mellitus on insulin, history of TIA in the past resulted in weakness of the left upper and lower extremities, gout. SOCIAL HISTORY: The patient lives with her son. She denies smoking, alcohol drinking, or illicit drug use. She uses a cane for ambulation. FAMILY HISTORY: Mother had coronary artery disease, but she at the age of 92, otherwise unremarkable. PAST SURGICAL HISTORY: Significant for abdominal surgery, possibly for cholecystectomy, bilateral total knee replacement and status post pacemaker placement. CURRENT MEDICATIONS: Vitamin D, metolazone 2.5 mg 3 times weekly, Amaryl 4 mg daily, magnesium oxide 400 mg daily, lidocaine patches, Lasix 40 mg p.o. daily, amlodipine 10 mg p.o. daily, allopurinol 100 mg daily, pantoprazole 40 mg p.o. daily, metoprolol 25 mg b.i.d., meclizine 25 mg t.i.d. p.r.n. for dizziness, insulin 20 units b.i.d., trazodone 50 mg at bedtime, ropinirole 0.25 mg at bedtime, Lipitor 10 mg at bedtime, apixaban 2.5 mg b.i.d., nitroglycerin p.r.n. 0.4 mg sublingually p.r.n., albuterol nebulizer, alprazolam 0.25 mg t.i.d. p.r.n. for anxiety, Fioricet 1 tablet q. 6 hours p.r.n. for pain, fentanyl 50 mcg q. 2 hours p.r.n. ALLERGIES: INFLUENZA VIRUS VACCINE, PENICILLIN, AMOXICILLIN, CEPHALEXIN, CLAVULANIC ACID AND METOCLOPRAMIDE. REVIEW OF SYSTEMS: Ten-point review of system was performed as mentioned above in the history of present illness. PHYSICAL EXAMINATION: GENERAL: Well-developed, well-nourished -[place] female, not in acute distress. She weighs 178 pounds. VITAL SIGNS: Blood pressure 132/74, respiratory rate 20, pulse is 69 and regular, temperature 98.3, oxygen saturation is 96% on room air. HEENT: Normocephalic, atraumatic, otherwise unremarkable. NECK: Supple. Negative for carotid bruit, lymphadenopathy or thyromegaly. LUNGS: Clear to A and P. CARDIOVASCULAR: Regular rate and rhythm, normal S1, S2. There is no S3, S4 or murmur. ABDOMEN: Soft. Bowel sounds positive. EXTREMITIES: Negative for cyanosis, clubbing or pitting edema. NEUROLOGICAL EXAMINATION: 1. Mental Status: The patient is alert and oriented x 3. Speech is fluent. There is no language dysfunction. Memory, judgment, and abstract thinking are fair. The patient denies hallucination or delusion. 2. Cranial Nerves: Visual allen are full. The pupils are reactive to light and accommodation. The extraocular movements are intact. There is no nystagmus. There is no facial motor or sensory deficit. Hearing is intact bilaterally. The palate is elevated symmetrically. Sternocleidomastoid muscles are powerful bilaterally. The patient shrugs her shoulders symmetrically and protrudes her tongue in the midline without fasciculation or atrophy. 3. Motor Examination: No focal muscle bulk was seen. The tone is normal. The strength is 4/5 throughout. 4. Sensory Examination: Revealed normal pinprick, light touch, vibratory and position senses. 5. Deep tendon reflexes are symmetric and active with absent Achilles responses. Babinski is positive on the left side. 6. Gait: The patient has unsteady stance even though when she tried to use a walker. DIAGNOSTIC DATA: Nonenhanced head CT scan revealed no evidence of acute intracranial process, otherwise unremarkable. LABORATORY DATA: CBC revealed white blood cells of 7000, hemoglobin 10.3, hematocrit 31.2, platelet count 145,000. Chemistry revealed sodium of 143, potassium of 4, chloride of 105, CO2 of 29, BUN 61, creatinine 2.8, glucose is 130 and calcium 9.2. IMPRESSION: 1. Worsening of left-sided weakness, possible transient ischemic attack. 2. Extensive multiple medical problems includes coronary artery disease, hypertension, hyperlipidemia, diabetes mellitus, gout, gastroesophageal reflux disease, restless leg syndrome, neck pain, status post pacemaker placement. RECOMMENDATIONS: 1. Carotid Doppler study. 2. Continue with current management initiated by Dr. Blair. 3. Physical therapy as tolerated. 4. 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 Canela ____. M Kelin DONALD MD DR: LOLITA/deepak JOB#: [id number] / [id number]
[2017-07-17 05:36] VITALS: BP 101/53
[2017-07-17 06:51] LABS: BASO % 1 % (0-3); EOS # 0.2 x10^3/uL (0.0-0.7); EOS % 2 % (0-3); HEMATOCRIT 30.6 % (36.0-47.0); HEMOGLOBIN 10.1 g/dL (12.0-15.5); LYMPH # 2.4 x10^3/uL (1.0-4.8); LYMPH % 33 % (24-48); MEAN CORPUSCULAR HEMOGLOBIN 28 pg (25-35); MEAN CORPUSCULAR HGB CONC 33 g/dL (31-37); MEAN CORPUSCULAR VOLUME 85 fL (79-100); MONO # 0.4 x10^3/uL (0.0-1.1); MONO % 6 % (0-9); NEUT # 4.3 x10^3uL (1.8-7.7); NEUT % 59 % (31-73); PLATELET COUNT 143 x10^3/uL (140-400); RED BLOOD COUNT 3.61 x10^6/uL (3.50-5.40); WHITE BLOOD COUNT 7.3 x10^3/uL (4.0-11.0)
[2017-07-17 06:59] LABS: ALBUMIN/GLOBULIN RATIO 0.9 (1.0-1.7); CALCIUM 8.9 mg/dL (8.5-10.1); GFR 17.9; POTASSIUM 3.8 mmol/L (3.5-5.1); TOTAL BILIRUBIN 0.3 mg/dL (0.2-1.0); TOTAL PROTEIN 6.5 g/dL (6.4-8.2)
[2017-07-17] MEDS: INSULIN ASPART 300 UNITS/3 ML INSULN.PEN SQ SCH ×4 (07:30→21:19)
[2017-07-17] MEDS ORDERED: metOLazone 2.5 MG TABLET PO SCH (09:00)
--- NOTE | 2017-07-17 09:21 | PDOC2 ---
SARA CHAIREZ INDUSTRIAL THERAPIST 07/17/17 0921: CONSULT Date of Admission DATE: 07/17/17 TIME: 09:01 Reason for Consult: Low blood pressure Problem List Problems Medical Problems: (1) Headache Status: Acute (2) TIA (transient ischemic attack) Status: Acute History of Present Illness REASON FOR CONSULTATION: Low blood pressure HISTORY OF PRESENT ILLNESS: The patient is a pleasant 87-year-old female who presented with chief complaint of headache and weakness. She has a past medical history of chronic diastolic congestive heart failure, coronary artery disease, hypertension, paroxysmal atrial fibrillation and hyperlipidemia. She follows with Dr Dunn as her primary parts sales representative. Thursday morning she developed left-sided weakness and some difficulty ambulating, she rested and seemed to get worse as day went on. At one point she felt she could not move the left side of her body for about 2 hours. She drank some juice and that improved but she began to get a severe headache and finally came to the ER. In the Er her blood pressure on admit was 146/80. Yesterday she started running in the low 100s systolic and her morning medications were held. Her GFR on admit was 24 and this morning was 17. Her diuretics are on hold as well as her Norvasc and her pressures continue to be acceptable lower range. She denies any chest discomfort, palpitations, lightheadedness, or syncope. PAST MEDICAL HISTORY: 1. Coronary artery disease with recent unstable angina. 2. Essential hypertension. 3. Hypercholesterolemia. 4. Paroxysmal atrial fibrillation. 5. Chronic diastolic congestive heart failure. 6. Pulmonary hypertension, mild. 7. Chronic anemia. 8. Arthritis. 9. Previous history of deep venous thrombosis. 10. Type 2 diabetes mellitus. 11. Gastroesophageal reflux disease. 12. Bilateral knee replacements. 13. Permanent pacemaker implantation. 14. History of peripheral arterial disease. 15. History of a stroke with no residual deficits. 16. Sick sinus syndrome. PAST SURGICAL HISTORY: 1. Status post permanent pacemaker implantation. 2. Status post knee replacements. FAMILY HISTORY: She does not know of any family history of premature coronary artery disease. SOCIAL HISTORY: She lives at home with her son. She does not smoke or drink alcohol. REVIEW OF SYSTEMS: Review of 10 organ systems is as per the history of present illness, otherwise negative. ALLERGIES: INCLUDE PENICILLIN, AMOXICILLIN, CEPHALEXIN, AUGMENTIN, REGLAN, AND FLU VACCINES. PHYSICAL EXAMINATION: GENERAL: The patient is awake and alert. She is in no acute distress. Sheappears well nourished and appears her stated age. HEAD AND NECK: The patient is normocephalic and atraumatic. Carotid pulsations are 2/2 bilaterally without bruits. Jugular venous pressure does not appearelevated. No thyromegaly appreciated. EYES: Conjunctivae are clear. Extraocular movements are intact. There is no xanthelasma. LUNGS: There is good respiratory effort with symmetrical expansion bilaterally. Lungs are clear to auscultation bilaterally. CARDIOVASCULAR: Regular rate and rhythm with normal S1 and S2. No rubs or gallops appreciated. Point of maximal impulse does not appear displaced. ABDOMEN: There are normal bowel sounds and the abdomen is soft and nontender. LOWER EXTREMITIES: There is trace pretibial edema bilaterally with compression stockings in place. The posterior tibial pulses are palpable bilaterally. SKIN: There is normal skin turgor. MUSCULOSKELETAL: I do not appreciate kyphosis or scoliosis. NEUROLOGIC: The patient is alert and oriented x 3. Cranial nerves 3 through 12 appear grossly intact. The patient has good motor tone and strength in the upper and lower extremities bilaterally. PSYCHOLOGICAL: The patient is pleasant and has normal affect. IMPRESSION: Low blood pressure - hold Norvasc, lasix, and metolazone. Resume slowly as tolerated. Paroxysmal atrial fibrillation - Continue Eliquis for anticoagulation and metoprolol for rhythm/rate maintenance. Congestive heart failure, chronic, with preserved ejection fraction. She is dehydrated at this time. Hold Lasix and Metolazone She will most likely need to be on a small dose of diuretics when she is discharged to home. Coronary artery disease. She is not presently having angina. She had a recent catheterization that did not show any coronary disease that required revascularization. Hypercholesterolemia. The patient should be continued on her atorvastatin. Plan for fasting lipid profile. Sick sinus syndrome. The patient's pacemaker appears to be functioning normally. She can continue with routine pacemaker checks through her regular parts sales representative. Thank you Dr. Blair for the courtesy of this consultation. We will be happy to follow along with you in consultation. As above, once the patient is discharged to home she can follow up with her regular parts sales representative after discharge. Current Medications Current Medications Ondansetron HCl (Zofran) 4 mg PRN Q4HRS PRN IV NAUSEA/VOMITING Last administered on 07/16/17 03:25; Start 07/15/17 at 19:30; Stop 07/16/17 at 19 :29; Status DC Fentanyl Citrate (Fentanyl 2ml Vial) 50 mcg PRN Q2HR PRN IV PAIN; Start at 19:30; Stop 07/16/17 at 19:29; Status DC Acetaminophen/ Hydrocodone Bitart (Lortab 5/325) 1 tab PRN Q6HRS PRN PO PAIN Last administered on 07/16/17 20:34; Start 07/15/17 at 20:45 Acetaminophen (Tylenol) 500 mg PRN Q6HRS PRN PO PAIN / TEMP Last administered on 07/15/17 21:14; Start 07/15/17 at 20:45 Insulin Aspart (NovoLOG) 0-7 UNITS QIDACHS SQ Last administered on 07/16/17 20:38; Start 07/15/17 at 21:00 Dextrose 12.5 gm PRN Q15MIN PRN IV SEE COMMENTS; Start 07/15/17 at 20:45 Allopurinol (Zyloprim) 100 mg DAILY PO Last administered on 07/16/17 08:40; Start 07/16/17 at 09:00 Alprazolam (Xanax) 0.25 mg PRN TID PRN PO ANXIETY / AGITATION; Start 07/15/17 at 20:45 Amlodipine Besylate (Norvasc) 10 mg DAILY PO ; Start 07/16/17 at 09:00; Stop 07/16/17 at 17:08; Status DC Apixaban (Eliquis) 2.5 mg BID PO Last administered on 07/16/17 20:30; Start 07/15/17 at 21:00 Atorvastatin Calcium (Lipitor) 10 mg HS PO Last administered on 07/16/17 20: 28; Start 07/15/17 at 21:00 Furosemide (Lasix) 40 mg DAILY PO ; Start 07/16/17 at 09:00; Stop 07/16/17 at 17:08; Status DC Albuterol/ Ipratropium (Duoneb) 3 ml PRN Q6HRS PRN NEB SHORTNESS OF BREATH; Start 07/15/17 at 20:45 Lidocaine (Lidoderm) 1 patch DAILY TD Last administered on 07/16/17 09:03; Start 07/16/17 at 09:00 Magnesium Oxide (Magnesium Oxide) 400 mg DAILY PO Last administered on 08:35; Start 07/16/17 at 09:00 Metolazone (Zaroxolyn) 2.5 mg 3X/WEEK PO ; Start 07/17/17 at 09:00 Nitroglycerin (Nitrostat) 0.4 mg PRN Q5MIN PRN SL CHEST PAIN; Start 07/15/17 at 20:45 Pantoprazole Sodium (Protonix) 40 mg DAILYAC PO Last administered on 08:47; Start 07/16/17 at 07:30 Ropinirole HCl (Requip) 0.25 mg HS PO Last administered on 07/16/17 20:30; Start 07/15/17 at 21:00 Senna/Docusate Sodium (Senna Plus) 1 tab BID PO Last administered on 20:30; Start 07/15/17 at 21:00 Trazodone HCl (Desyrel) 50 mg HS PO Last administered on 07/16/17 20:29; Start 07/15/17 at 21:00 Vitamin D (Vitamin D3) 5,000 unit WEEKLY PO ; Start 07/22/17 at 09:00 Glimepiride (Amaryl) 4 mg DAILY PO Last administered on 07/16/17 08:39; Start 07/16/17 at 09:00 Insulin Detemir (Levemir) 20 units BID SQ Last administered on 07/16/17 20:38 ; Start 07/15/17 at 21:00 Meclizine HCl (Antivert) 25 mg PRN TID PRN PO DIZZINESS Last administered on 03:25; Start 07/15/17 at 21:00 Metoprolol Tartrate (Lopressor) 25 mg BID PO Last administered on 07/16/17 20 :29; Start 07/15/17 at 21:00 Active Scripts Active Trazodone Hcl 50 Mg Tablet 50 Mg PO HS 90 Days Requip (Ropinirole Hcl) 0.25 Mg Tablet 0.25 Mg PO HS 90 Days Pantoprazole Sodium 40 Mg Tablet.dr 40 Mg PO DAILYAC 90 Days Lidocaine 1 Each Adh..patch 1 Patch TD DAILY 60 Days Metolazone 2.5 Mg Tablet 2.5 Mg PO 3X/WEEK 90 Days Allopurinol 100 Mg Tablet 1 Tab PO DAILY Amlodipine Besylate 5 Mg Tablet 10 Mg PO DAILY 90 Days LAST DOSE GIVEN: DATE: 01/01/17 TIME: 0900 NEXT DOSE DUE: DATE: 01/02/17 TIME: 0900 Reported Meclizine Hcl 25 Mg Tablet 1 Tab PO PRN TID NEXT DOSE DUE: DATE: TODAY TIME: IF NEEDED Duoneb 0.5-3(2.5) Mg/3 Ml (Albuterol/Ipratropium) 3 Ml Ampul.neb 3 Ml NEB PRN Q6HRS PRN LAST DOSE GIVEN: DATE: TODAY TIME: AM NEXT DOSE DUE: DATE: TODAY TIME: AFTERNOON Atorvastatin Calcium 10 Mg Tablet 1 Tab PO HS LAST DOSE GIVEN: DATE: YES TIME: AT BEDTIME NEXT DOSE DUE: DATE: TIME: AT BEDTIME Tylenol (Acetaminophen) 325 Mg Tablet 2 Tab PO PRN Q6HRS PRN NEXT DOSE DUE: DATE: TODAY TIME: IF NEEDED Senokot-S Tablet (Sennosides/Docusate Sodium) 1 Each Tablet 1 Tab PO BID LAST DOSE GIVEN: DATE: TIME: AM NEXT DOSE DUE: DATE: TODAY TIME: PM Bystolic (Nebivolol Hcl) 5 Mg Tablet 1 Tab PO HS LAST DOSE GIVEN: DATE: TIME: AT BEDTIME NEXT DOSE DUE: DATE: TIME: AT BEDTIME Magnesium Oxide 400 Mg Tablet 1 Tab PO DAILY LAST DOSE GIVEN: DATE: TIME: AM NEXT DOSE DUE: DATE: TOMORROW TIME: AM Glimepiride 4 Mg Tablet 1 Tab PO DAILY LAST DOSE GIVEN: DATE: TODAY TIME: AM NEXT DOSE DUE: DATE: TOMORR TIME: AM Furosemide 40 Mg Tablet 1 Tab PO DAILY LAST DOSE GIVEN: DATE: TODAY TIME: AM NEXT DOSE DUE: DATE: TOMORR TIME: AM NITROGLYCERIN SubLingual (Nitroglycerin) 0.4 Mg Tab.subl 0.4 Mg SL PRN Q5MIN PRN NEXT DOSE DUE: DATE: TODAY TIME: IF NEEDED NEXT DOSE DUE: DATE: as needed for chest pain TIME: Xanax (Alprazolam) 0.25 Mg Tablet 0.25 Mg PO PRN TID PRN NEXT DOSE DUE: DATE: TODAY TIME: IF NEEDED NEXT DOSE DUE: DATE: 01/02/17 TIME: 0900 Levemir (Insulin Detemir) 100 Unit/1 Ml Vial 20 Unit SQ BID LAST DOSE GIVEN: DATE: YESTERDAY TIME: AT BEDTIME NEXT DOSE DUE: DATE: TODAY TIME: AT BEDTIME Eliquis (Apixaban) 2.5 Mg Tablet 2.5 Mg PO BID LAST DOSE GIVEN: DATE: TODAY TIME: AM NEXT DOSE DUE: DATE: TODAY TIME: PM Vitamin D (Cholecalciferol (Vitamin D3)) 2,000 Unit Capsule 5,000 Unit PO WEEKLY Continue taking on your weekly schedule DATE: 04/18/17 TIME: 0900 NEXT DOSE DUE: DATE: 04/25/17 TIME: 0900 Allergies: Coded Allergies: Influenza Virus Vaccines (Verified Allergy, Intermediate, GENERALIZED BODY /JOINT ACHES, 10/07/16) Penicillins (Verified Allergy, Intermediate, NAUSEA/VOMITING, 10/07/16) amoxicillin (Verified Allergy, Intermediate, Nausea/Vomiting, 10/07/16) cephalexin (Verified Allergy, Intermediate, Nausea/Vomiting, 10/07/16) clavulanic acid (Verified Allergy, Intermediate, Nausea/Vomiting, 10/07/16) metoclopramide (Verified Allergy, Intermediate, NAUSEA/VOMITING, 10/07/16) VITALS Vital Signs Date Time Temp Pulse Resp B/P (MAP) Pulse Ox O2 Delivery O2 Flow Rate FiO2 07/17/17 05:36 97.8 61 18 101/53 (69) 98 Room Air Labs Laboratory Tests Test 07/15/17 17:35 07/15/17 18:00 07/15/17 21:01 07/16/17 03:20 White Blood Count 7.8 x10^3/uL (4.0-11.0) Red Blood Count 4.07 x10^6/uL (3.50-5.40) Hemoglobin 11.2 g/dL (12.0-15.5) Hematocrit 34.4 % (36.0-47.0) Mean Corpuscular Volume 85 fL (79-100) Mean Corpuscular Hemoglobin 28 pg (25-35) Mean Corpuscular Hemoglobin Concent 33 g/dL (31-37) Red Cell Distribution Width 16.0 % (11.5-14.5) Platelet Count 167 x10^3/uL (140-400) Neutrophils (%) (Auto) 64 % (31-73) Lymphocytes (%) (Auto) 27 % (24-48) Monocytes (%) (Auto) 6 % (0-9) Eosinophils (%) (Auto) 2 % (0-3) Basophils (%) (Auto) 1 % (0-3) Neutrophils # (Auto) 5.0 x10^3uL (1.8-7.7) Lymphocytes # (Auto) 2.1 x10^3/uL (1.0-4.8) Monocytes # (Auto) 0.5 x10^3/uL (0.0-1.1) Eosinophils # (Auto) 0.2 x10^3/uL (0.0-0.7) Basophils # (Auto) 0.1 x10^3/uL (0.0-0.2) Sodium Level 140 mmol/L (136-145) Potassium Level 4.1 mmol/L (3.5-5.1) Chloride Level 102 mmol/L (98-107) Carbon Dioxide Level 28 mmol/L (21-32) Anion Gap 10 (6-14) Blood Urea Nitrogen 60 mg/dL (7-20) Creatinine 2.3 mg/dL (0.6-1.0) Estimated GFR (Cockcroft-Gault) 24.3 BUN/Creatinine Ratio 26 (6-20) Glucose Level 163 mg/dL (70-99) Lactic Acid Level 1.2 mmol/L (0.4-2.0) Calcium Level 9.9 mg/dL (8.5-10.1) Total Bilirubin 0.2 mg/dL (0.2-1.0) Aspartate Amino Transf (AST/SGOT) 19 U/L (15-37) Alanine Aminotransferase (ALT/SGPT) 17 U/L (14-59) Alkaline Phosphatase 52 U/L (46-116) Troponin I Quantitative 0.027 ng/mL (0-0.055) LO-Dws-X-Type Natriuretic Peptide 1612 pg/mL (0-449) Total Protein 7.6 g/dL (6.4-8.2) Albumin 3.6 g/dL (3.4-5.0) Albumin/Globulin Ratio 0.9 (1.0-1.7) Urine Collection Type Unknown Urine Color Colorless Urine Clarity Clear Urine pH 5.0 Urine Specific Sturgeon <=1.005 Urine Protein Trace (NEG-TRACE) Urine Glucose (UA) Neg mg/dL (NEG) Urine Ketones (Stick) Neg mg/dL (NEG) Urine Blood Trace (NEG) Urine Nitrite Neg (NEG) Urine Bilirubin Neg (NEG) Urine Urobilinogen Dipstick 0.2 mg/dL (0.2 mg/dL) Urine Leukocyte Esterase Neg (NEG) Urine RBC Occ /HPF (0-2) Urine WBC Occ /HPF (0-4) Urine Squamous Epithelial Cells Mod /LPF Urine Bacteria 0 /HPF (0-FEW) Glucose (Fingerstick) 126 mg/dL (70-99) 160 mg/dL (70-99) Test 07/16/17 05:52 07/16/17 07:31 07/16/17 11:24 07/16/17 16:23 White Blood Count 7.0 x10^3/uL (4.0-11.0) Red Blood Count 3.68 x10^6/uL (3.50-5.40) Hemoglobin 10.3 g/dL (12.0-15.5) Hematocrit 31.2 % (36.0-47.0) Mean Corpuscular Volume 85 fL (79-100) Mean Corpuscular Hemoglobin 28 pg (25-35) Mean Corpuscular Hemoglobin Concent 33 g/dL (31-37) Red Cell Distribution Width 15.9 % (11.5-14.5) Platelet Count 145 x10^3/uL (140-400) Neutrophils (%) (Auto) 59 % (31-73) Lymphocytes (%) (Auto) 32 % (24-48) Monocytes (%) (Auto) 6 % (0-9) Eosinophils (%) (Auto) 2 % (0-3) Basophils (%) (Auto) 1 % (0-3) Neutrophils # (Auto) 4.2 x10^3uL (1.8-7.7) Lymphocytes # (Auto) 2.2 x10^3/uL (1.0-4.8) Monocytes # (Auto) 0.4 x10^3/uL (0.0-1.1) Eosinophils # (Auto) 0.1 x10^3/uL (0.0-0.7) Basophils # (Auto) 0.1 x10^3/uL (0.0-0.2) Sodium Level 143 mmol/L (136-145) Potassium Level 4.0 mmol/L (3.5-5.1) Chloride Level 105 mmol/L (98-107) Carbon Dioxide Level 29 mmol/L (21-32) Anion Gap 9 (6-14) Blood Urea Nitrogen 61 mg/dL (7-20) Creatinine 2.8 mg/dL (0.6-1.0) Estimated GFR (Cockcroft-Gault) 19.3 Glucose Level 130 mg/dL (70-99) Calcium Level 9.2 mg/dL (8.5-10.1) Triglycerides Level 105 mg/dL (0-150) Cholesterol Level 195 mg/dL (0-200) LDL Cholesterol, Calculated 118 mg/dL (0-100) VLDL Cholesterol, Calculated 21 mg/dL (0-40) Non-HDL Cholesterol Calculated 139 mg/dL (0-129) HDL Cholesterol 56 mg/dL (40-60) Cholesterol/HDL Ratio 3.0 Glucose (Fingerstick) 95 mg/dL (70-99) 173 mg/dL (70-99) 216 mg/dL (70-99) Test 07/16/17 19:37 07/17/17 05:59 07/17/17 07:38 07/17/17 08:31 Glucose (Fingerstick) 221 mg/dL (70-99) 65 mg/dL (70-99) 124 mg/dL (70-99) White Blood Count 7.3 x10^3/uL (4.0-11.0) Red Blood Count 3.61 x10^6/uL (3.50-5.40) Hemoglobin 10.1 g/dL (12.0-15.5) Hematocrit 30.6 % (36.0-47.0) Mean Corpuscular Volume 85 fL (79-100) Mean Corpuscular Hemoglobin 28 pg (25-35) Mean Corpuscular Hemoglobin Concent 33 g/dL (31-37) Red Cell Distribution Width 16.0 % (11.5-14.5) Platelet Count 143 x10^3/uL (140-400) Neutrophils (%) (Auto) 59 % (31-73) Lymphocytes (%) (Auto) 33 % (24-48) Monocytes (%) (Auto) 6 % (0-9) Eosinophils (%) (Auto) 2 % (0-3) Basophils (%) (Auto) 1 % (0-3) Neutrophils # (Auto) 4.3 x10^3uL (1.8-7.7) Lymphocytes # (Auto) 2.4 x10^3/uL (1.0-4.8) Monocytes # (Auto) 0.4 x10^3/uL (0.0-1.1) Eosinophils # (Auto) 0.2 x10^3/uL (0.0-0.7) Basophils # (Auto) 0.0 x10^3/uL (0.0-0.2) Sodium Level 140 mmol/L (136-145) Potassium Level 3.8 mmol/L (3.5-5.1) Chloride Level 102 mmol/L (98-107) Carbon Dioxide Level 28 mmol/L (21-32) Anion Gap 10 (6-14) Blood Urea Nitrogen 64 mg/dL (7-20) Creatinine 3.0 mg/dL (0.6-1.0) Estimated GFR (Cockcroft-Gault) 17.9 BUN/Creatinine Ratio 21 (6-20) Glucose Level 80 mg/dL (70-99) Calcium Level 8.9 mg/dL (8.5-10.1) Magnesium Level 2.2 mg/dL (1.8-2.4) Total Bilirubin 0.3 mg/dL (0.2-1.0) Aspartate Amino Transf (AST/SGOT) 15 U/L (15-37) Alanine Aminotransferase (ALT/SGPT) 14 U/L (14-59) Alkaline Phosphatase 44 U/L (46-116) Total Protein 6.5 g/dL (6.4-8.2) Albumin 3.0 g/dL (3.4-5.0) Albumin/Globulin Ratio 0.9 (1.0-1.7) CAROL ALLEN Jr, MD 07/19/17 1100: CONSULT Allergies: Coded Allergies: Influenza Virus Vaccines (Verified Allergy, Intermediate, GENERALIZED BODY /JOINT ACHES, 10/07/16) Penicillins (Verified Allergy, Intermediate, NAUSEA/VOMITING, 10/07/16) amoxicillin (Verified Allergy, Intermediate, Nausea/Vomiting, 10/07/16) cephalexin (Verified Allergy, Intermediate, Nausea/Vomiting, 10/07/16) clavulanic acid (Verified Allergy, Intermediate, Nausea/Vomiting, 10/07/16) metoclopramide (Verified Allergy, Intermediate, NAUSEA/VOMITING, 10/07/16) Assessment/Plan The patient was seen by Sara Chairez APRN and I have reviewed her findings and plan and agree with above. Due to staffing constraints, we did not have an attending available on this day to see the patient. Problems: SARA CHAIREZ APRN Jul 17, 2017 09:21 CAROL ALLEN Jr, MD Jul 19, 2017 11:00
[2017-07-17] MEDS: METOPROLOL TART IMMED RELEASE 25 MG TABLET PO SCH ×2 (09:26→21:16)
[2017-07-17] MEDS: PANTOPRAZOLE 40 MG TABLET. PO SCH (09:26)
[2017-07-17] MEDS: LIDOCAINE (700MG/PATCH) PATCH. TD SCH (09:26)
[2017-07-17] MEDS: GLIMEPIRIDE 2 MG TABLET PO SCH (09:26)
[2017-07-17] MEDS: APIXABAN 2.5 MG TABLET PO SCH ×2 (09:26→21:17)
[2017-07-17] MEDS: SENNOSIDES/DOCUSATE 8.6/50MG TABLET. PO SCH ×2 (09:26→21:17)
[2017-07-17] MEDS: ALLOPURINOL 100 MG TABLET. PO SCH (09:26)
[2017-07-17] MEDS: MAGNESIUM OXIDE 400 MG TABLET PO SCH (09:27)
[2017-07-17] MEDS: INSULIN DETEMIR 300 UNITS/3 ML INSULN.PEN. SQ SCH ×2 (09:35→21:18)
[2017-07-17 11:02] VITALS: BP 108/64
[2017-07-17 15:02] VITALS: BP 127/79
--- NOTE | 2017-07-17 15:05 | PDOC ---
PROGRESS NOTES Assessment 1. 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 CT negative. Pt to contine on Eliquis. No critical stenoses seen on carotid doppler yesterday. Neurology following, plan to transfer to [facility] tomorrow for rehab. Pt says sx's are improving, but still has objective LUE and LLE weakness. 2. Headache: Pt describes as radiating from back of head to left eye on left side. Possible occipital migraine? Neurology following, will see if this occurs again. 3. CKD, stage 4: Recheck BMP in AM. 4. Hypertension: Some BP meds being held due to low BP. Will add back as tolerated. 5. DVT proph: Pt on Eliquis. Problems: Plan of Care: see other orders Subjective Pt states she feels better. NO ARECHIGA today. Still weak on left side. Ready to go to rehab tomorrow. Denies fever, chest pain, dizziness, blurry vision, vomiting, or SOA. Objective Vital Signs Date Time Temp Pulse Resp B/P (MAP) Pulse Ox O2 Delivery O2 Flow Rate FiO2 07/17/17 11:02 97.9 68 20 108/64 (79) 97 Room Air Intake and Output 07/17/17 07:00 Intake Total 1500 ml Balance 1500 ml Intake Oral 1500 ml # Voids 5 # Bowel Movements 1 Abdomen: Soft, No masses Heart: Regular rate, No murmurs Extremities: No edema, Normal pulses General: Alert, Cooperative HEENT: Atraumatic, PERRLA, EOMI, Mucous membr. moist/pink Lungs: Clear to auscultation, Normal air movement Neck: No JVD, No thyromegaly, No LAD Neuro: Cranial nerves 3-12 NL, Other (Left sided strength 4/5, Right side 5/5) Psych/Mental Status: Mental status NL Skin: No rashes Review of Relevant I have reviewed the following items alisha (where applicable) has been applied. Labs Laboratory Tests Test 07/15/17 17:35 07/15/17 18:00 07/15/17 21:01 07/16/17 03:20 White Blood Count 7.8 x10^3/uL (4.0-11.0) Red Blood Count 4.07 x10^6/uL (3.50-5.40) Hemoglobin 11.2 g/dL (12.0-15.5) Hematocrit 34.4 % (36.0-47.0) Mean Corpuscular Volume 85 fL (79-100) Mean Corpuscular Hemoglobin 28 pg (25-35) Mean Corpuscular Hemoglobin Concent 33 g/dL (31-37) Red Cell Distribution Width 16.0 % (11.5-14.5) Platelet Count 167 x10^3/uL (140-400) Neutrophils (%) (Auto) 64 % (31-73) Lymphocytes (%) (Auto) 27 % (24-48) Monocytes (%) (Auto) 6 % (0-9) Eosinophils (%) (Auto) 2 % (0-3) Basophils (%) (Auto) 1 % (0-3) Neutrophils # (Auto) 5.0 x10^3uL (1.8-7.7) Lymphocytes # (Auto) 2.1 x10^3/uL (1.0-4.8) Monocytes # (Auto) 0.5 x10^3/uL (0.0-1.1) Eosinophils # (Auto) 0.2 x10^3/uL (0.0-0.7) Basophils # (Auto) 0.1 x10^3/uL (0.0-0.2) Sodium Level 140 mmol/L (136-145) Potassium Level 4.1 mmol/L (3.5-5.1) Chloride Level 102 mmol/L (98-107) Carbon Dioxide Level 28 mmol/L (21-32) Anion Gap 10 (6-14) Blood Urea Nitrogen 60 mg/dL (7-20) Creatinine 2.3 mg/dL (0.6-1.0) Estimated GFR (Cockcroft-Gault) 24.3 BUN/Creatinine Ratio 26 (6-20) Glucose Level 163 mg/dL (70-99) Lactic Acid Level 1.2 mmol/L (0.4-2.0) Calcium Level 9.9 mg/dL (8.5-10.1) Total Bilirubin 0.2 mg/dL (0.2-1.0) Aspartate Amino Transf (AST/SGOT) 19 U/L (15-37) Alanine Aminotransferase (ALT/SGPT) 17 U/L (14-59) Alkaline Phosphatase 52 U/L (46-116) Troponin I Quantitative 0.027 ng/mL (0-0.055) XV-Dkd-X-Type Natriuretic Peptide 1612 pg/mL (0-449) Total Protein 7.6 g/dL (6.4-8.2) Albumin 3.6 g/dL (3.4-5.0) Albumin/Globulin Ratio 0.9 (1.0-1.7) Urine Collection Type Unknown Urine Color Colorless Urine Clarity Clear Urine pH 5.0 Urine Specific Franklin <=1.005 Urine Protein Trace (NEG-TRACE) Urine Glucose (UA) Neg mg/dL (NEG) Urine Ketones (Stick) Neg mg/dL (NEG) Urine Blood Trace (NEG) Urine Nitrite Neg (NEG) Urine Bilirubin Neg (NEG) Urine Urobilinogen Dipstick 0.2 mg/dL (0.2 mg/dL) Urine Leukocyte Esterase Neg (NEG) Urine RBC Occ /HPF (0-2) Urine WBC Occ /HPF (0-4) Urine Squamous Epithelial Cells Mod /LPF Urine Bacteria 0 /HPF (0-FEW) Glucose (Fingerstick) 126 mg/dL (70-99) 160 mg/dL (70-99) Test 07/16/17 05:52 07/16/17 07:31 07/16/17 11:24 07/16/17 16:23 White Blood Count 7.0 x10^3/uL (4.0-11.0) Red Blood Count 3.68 x10^6/uL (3.50-5.40) Hemoglobin 10.3 g/dL (12.0-15.5) Hematocrit 31.2 % (36.0-47.0) Mean Corpuscular Volume 85 fL (79-100) Mean Corpuscular Hemoglobin 28 pg (25-35) Mean Corpuscular Hemoglobin Concent 33 g/dL (31-37) Red Cell Distribution Width 15.9 % (11.5-14.5) Platelet Count 145 x10^3/uL (140-400) Neutrophils (%) (Auto) 59 % (31-73) Lymphocytes (%) (Auto) 32 % (24-48) Monocytes (%) (Auto) 6 % (0-9) Eosinophils (%) (Auto) 2 % (0-3) Basophils (%) (Auto) 1 % (0-3) Neutrophils # (Auto) 4.2 x10^3uL (1.8-7.7) Lymphocytes # (Auto) 2.2 x10^3/uL (1.0-4.8) Monocytes # (Auto) 0.4 x10^3/uL (0.0-1.1) Eosinophils # (Auto) 0.1 x10^3/uL (0.0-0.7) Basophils # (Auto) 0.1 x10^3/uL (0.0-0.2) Sodium Level 143 mmol/L (136-145) Potassium Level 4.0 mmol/L (3.5-5.1) Chloride Level 105 mmol/L (98-107) Carbon Dioxide Level 29 mmol/L (21-32) Anion Gap 9 (6-14) Blood Urea Nitrogen 61 mg/dL (7-20) Creatinine 2.8 mg/dL (0.6-1.0) Estimated GFR (Cockcroft-Gault) 19.3 Glucose Level 130 mg/dL (70-99) Calcium Level 9.2 mg/dL (8.5-10.1) Triglycerides Level 105 mg/dL (0-150) Cholesterol Level 195 mg/dL (0-200) LDL Cholesterol, Calculated 118 mg/dL (0-100) VLDL Cholesterol, Calculated 21 mg/dL (0-40) Non-HDL Cholesterol Calculated 139 mg/dL (0-129) HDL Cholesterol 56 mg/dL (40-60) Cholesterol/HDL Ratio 3.0 Glucose (Fingerstick) 95 mg/dL (70-99) 173 mg/dL (70-99) 216 mg/dL (70-99) Test 07/16/17 19:37 07/17/17 05:59 07/17/17 07:38 07/17/17 08:31 Glucose (Fingerstick) 221 mg/dL (70-99) 65 mg/dL (70-99) 124 mg/dL (70-99) White Blood Count 7.3 x10^3/uL (4.0-11.0) Red Blood Count 3.61 x10^6/uL (3.50-5.40) Hemoglobin 10.1 g/dL (12.0-15.5) Hematocrit 30.6 % (36.0-47.0) Mean Corpuscular Volume 85 fL (79-100) Mean Corpuscular Hemoglobin 28 pg (25-35) Mean Corpuscular Hemoglobin Concent 33 g/dL (31-37) Red Cell Distribution Width 16.0 % (11.5-14.5) Platelet Count 143 x10^3/uL (140-400) Neutrophils (%) (Auto) 59 % (31-73) Lymphocytes (%) (Auto) 33 % (24-48) Monocytes (%) (Auto) 6 % (0-9) Eosinophils (%) (Auto) 2 % (0-3) Basophils (%) (Auto) 1 % (0-3) Neutrophils # (Auto) 4.3 x10^3uL (1.8-7.7) Lymphocytes # (Auto) 2.4 x10^3/uL (1.0-4.8) Monocytes # (Auto) 0.4 x10^3/uL (0.0-1.1) Eosinophils # (Auto) 0.2 x10^3/uL (0.0-0.7) Basophils # (Auto) 0.0 x10^3/uL (0.0-0.2) Sodium Level 140 mmol/L (136-145) Potassium Level 3.8 mmol/L (3.5-5.1) Chloride Level 102 mmol/L (98-107) Carbon Dioxide Level 28 mmol/L (21-32) Anion Gap 10 (6-14) Blood Urea Nitrogen 64 mg/dL (7-20) Creatinine 3.0 mg/dL (0.6-1.0) Estimated GFR (Cockcroft-Gault) 17.9 BUN/Creatinine Ratio 21 (6-20) Glucose Level 80 mg/dL (70-99) Calcium Level 8.9 mg/dL (8.5-10.1) Magnesium Level 2.2 mg/dL (1.8-2.4) Total Bilirubin 0.3 mg/dL (0.2-1.0) Aspartate Amino Transf (AST/SGOT) 15 U/L (15-37) Alanine Aminotransferase (ALT/SGPT) 14 U/L (14-59) Alkaline Phosphatase 44 U/L (46-116) Total Protein 6.5 g/dL (6.4-8.2) Albumin 3.0 g/dL (3.4-5.0) Albumin/Globulin Ratio 0.9 (1.0-1.7) Test 07/17/17 11:29 Glucose (Fingerstick) 171 mg/dL (70-99) Medications Current Medications Ondansetron HCl (Zofran) 4 mg PRN Q4HRS PRN IV NAUSEA/VOMITING Last administered on 07/16/17 03:25; Start 07/15/17 at 19:30; Stop 07/16/17 at 19 :29; Status DC Fentanyl Citrate (Fentanyl 2ml Vial) 50 mcg PRN Q2HR PRN IV PAIN; Start at 19:30; Stop 07/16/17 at 19:29; Status DC Acetaminophen/ Hydrocodone Bitart (Lortab 5/325) 1 tab PRN Q6HRS PRN PO PAIN Last administered on 07/16/17 20:34; Start 07/15/17 at 20:45 Acetaminophen (Tylenol) 500 mg PRN Q6HRS PRN PO PAIN / TEMP Last administered on 07/15/17 21:14; Start 07/15/17 at 20:45 Insulin Aspart (NovoLOG) 0-7 UNITS QIDACHS SQ Last administered on 07/17/17 12:13; Start 07/15/17 at 21:00 Dextrose 12.5 gm PRN Q15MIN PRN IV SEE COMMENTS; Start 07/15/17 at 20:45 Allopurinol (Zyloprim) 100 mg DAILY PO Last administered on 07/17/17 09:26; Start 07/16/17 at 09:00 Alprazolam (Xanax) 0.25 mg PRN TID PRN PO ANXIETY / AGITATION; Start 07/15/17 at 20:45 Amlodipine Besylate (Norvasc) 10 mg DAILY PO ; Start 07/16/17 at 09:00; Stop 07/16/17 at 17:08; Status DC Apixaban (Eliquis) 2.5 mg BID PO Last administered on 07/17/17 09:26; Start 07/15/17 at 21:00 Atorvastatin Calcium (Lipitor) 10 mg HS PO Last administered on 07/16/17 20: 28; Start 07/15/17 at 21:00 Furosemide (Lasix) 40 mg DAILY PO ; Start 07/16/17 at 09:00; Stop 07/16/17 at 17:08; Status DC Albuterol/ Ipratropium (Duoneb) 3 ml PRN Q6HRS PRN NEB SHORTNESS OF BREATH; Start 07/15/17 at 20:45 Lidocaine (Lidoderm) 1 patch DAILY TD Last administered on 07/17/17 09:26; Start 07/16/17 at 09:00 Magnesium Oxide (Magnesium Oxide) 400 mg DAILY PO Last administered on 09:27; Start 07/16/17 at 09:00 Metolazone (Zaroxolyn) 2.5 mg 3X/WEEK PO ; Start 07/17/17 at 09:00; Stop 07/17 at 09:24; Status DC Nitroglycerin (Nitrostat) 0.4 mg PRN Q5MIN PRN SL CHEST PAIN; Start 07/15/17 at 20:45 Pantoprazole Sodium (Protonix) 40 mg DAILYAC PO Last administered on 09:26; Start 07/16/17 at 07:30 Ropinirole HCl (Requip) 0.25 mg HS PO Last administered on 07/16/17 20:30; Start 07/15/17 at 21:00 Senna/Docusate Sodium (Senna Plus) 1 tab BID PO Last administered on 09:26; Start 07/15/17 at 21:00 Trazodone HCl (Desyrel) 50 mg HS PO Last administered on 07/16/17 20:29; Start 07/15/17 at 21:00 Vitamin D (Vitamin D3) 5,000 unit WEEKLY PO ; Start 07/22/17 at 09:00 Glimepiride (Amaryl) 4 mg DAILY PO Last administered on 07/17/17 09:26; Start 07/16/17 at 09:00 Insulin Detemir (Levemir) 20 units BID SQ Last administered on 07/17/17 09:35 ; Start 07/15/17 at 21:00 Meclizine HCl (Antivert) 25 mg PRN TID PRN PO DIZZINESS Last administered on 03:25; Start 07/15/17 at 21:00 Metoprolol Tartrate (Lopressor) 25 mg BID PO Last administered on 12/15/17at 09 :26; Start 07/15/17 at 21:00 Active Scripts Active Trazodone Hcl 50 Mg Tablet 50 Mg PO HS 90 Days Requip (Ropinirole Hcl) 0.25 Mg Tablet 0.25 Mg PO HS 90 Days Pantoprazole Sodium 40 Mg Tablet.dr 40 Mg PO DAILYAC 90 Days Lidocaine 1 Each Adh..patch 1 Patch TD DAILY 60 Days Metolazone 2.5 Mg Tablet 2.5 Mg PO 3X/WEEK 90 Days Allopurinol 100 Mg Tablet 1 Tab PO DAILY Amlodipine Besylate 5 Mg Tablet 10 Mg PO DAILY 90 Days LAST DOSE GIVEN: DATE: 01/01/17 TIME: 0900 NEXT DOSE DUE: DATE: 01/02/17 TIME: 0900 Reported Meclizine Hcl 25 Mg Tablet 1 Tab PO PRN TID NEXT DOSE DUE: DATE: TODAY TIME: IF NEEDED Duoneb 0.5-3(2.5) Mg/3 Ml (Albuterol/Ipratropium) 3 Ml Ampul.neb 3 Ml NEB PRN Q6HRS PRN LAST DOSE GIVEN: DATE: TODAY TIME: AM NEXT DOSE DUE: DATE: TODAY TIME: AFTERNOON Atorvastatin Calcium 10 Mg Tablet 1 Tab PO HS LAST DOSE GIVEN: DATE: YES TIME: AT BEDTIME NEXT DOSE DUE: DATE: TODAY TIME: AT BEDTIME Tylenol (Acetaminophen) 325 Mg Tablet 2 Tab PO PRN Q6HRS PRN NEXT DOSE DUE: DATE: TODAY TIME: IF NEEDED Senokot-S Tablet (Sennosides/Docusate Sodium) 1 Each Tablet 1 Tab PO BID LAST DOSE GIVEN: DATE: TODAY TIME: AM NEXT DOSE DUE: DATE: TODAY TIME: PM Bystolic (Nebivolol Hcl) 5 Mg Tablet 1 Tab PO HS LAST DOSE GIVEN: DATE: TIME: AT BEDTIME NEXT DOSE DUE: DATE: TODAY TIME: AT BEDTIME Magnesium Oxide 400 Mg Tablet 1 Tab PO DAILY LAST DOSE GIVEN: DATE: TODAY TIME: AM NEXT DOSE DUE: DATE: TOMORROW TIME: AM Glimepiride 4 Mg Tablet 1 Tab PO DAILY LAST DOSE GIVEN: DATE: TODAY TIME: AM NEXT DOSE DUE: DATE: TOMORROW TIME: AM Furosemide 40 Mg Tablet 1 Tab PO DAILY LAST DOSE GIVEN: DATE: TODAY TIME: AM NEXT DOSE DUE: DATE: TOMORROW TIME: AM NITROGLYCERIN SubLingual (Nitroglycerin) 0.4 Mg Tab.subl 0.4 Mg SL PRN Q5MIN PRN NEXT DOSE DUE: DATE: TODAY TIME: IF NEEDED NEXT DOSE DUE: DATE: as needed for chest pain TIME: Xanax (Alprazolam) 0.25 Mg Tablet 0.25 Mg PO PRN TID PRN NEXT DOSE DUE: DATE: TODAY TIME: IF NEEDED NEXT DOSE DUE: DATE: 01/02/17 TIME: 0900 Levemir (Insulin Detemir) 100 Unit/1 Ml Vial 20 Unit SQ BID LAST DOSE GIVEN: DATE: YESTERDAY TIME: AT BEDTIME NEXT DOSE DUE: DATE: TODAY TIME: AT BEDTIME Eliquis (Apixaban) 2.5 Mg Tablet 2.5 Mg PO BID LAST DOSE GIVEN: DATE: TODAY TIME: AM NEXT DOSE DUE: DATE: TODAY TIME: PM Vitamin D (Cholecalciferol (Vitamin D3)) 2,000 Unit Capsule 5,000 Unit PO WEEKLY Continue taking on your weekly schedule DATE: 04/18/17 TIME: 09 NEXT DOSE DUE: DATE: 04/25/17 TIME: 0900 Vitals/I & O Vital Sign - Last 24 Hours 07/16/17 07/16/17 07/16/17 07/16/17 15:22 19:14 19:20 20:29 Temp 97.4 97.8 Pulse 74 73 73 Resp 20 20 B/P (MAP) 118/65 (82) 116/59 (78) 116/59 Pulse Ox 98 98 O2 Delivery Room Air Room Air 07/16/17 07/16/17 07/16/17 07/17/17 20:34 21:30 22:33 05:36 Temp 97.9 97.8 Pulse 68 61 Resp 18 18 18 18 B/P (MAP) 128/80 (96) 101/53 (69) Pulse Ox 96 98 O2 Delivery Room Air Room Air Room Air Room Air 07/17/17 07/17/17 07/17/17 08:00 09:26 11:02 Temp 97.9 Pulse 61 68 Resp 20 B/P (MAP) 101/53 108/64 (79) Pulse Ox 97 O2 Delivery Room Air Room Air Intake and Output 07/16/17 07/16/17 07/17/17 15:00 23:00 07:00 Intake Total 600 ml 800 ml 100 ml Balance 600 ml 800 ml 100 ml Images Exam : Carotid Duplex with Grayscale Ultrasound and Spectral and Color Doppler Analysis: Clinical Indications: Carotid stenosis. Comparison study: None available. PQRS Compliance Statement - Stenosis calculations for CT, MR and conventional angiography are based upon measurement of the distal ICA diameter in accordance with the NASCET methodology. Stenosis calculations for carotid ultrasound studies are derived from validated velocity criteria which are known to correlate with the NASCET methodology. Findings: The common, internal and external carotid arteries were examined by grayscale, color and spectral Doppler ultrasound. Diffuse atherosclerotic vascular disease is noted. Flow in both vertebral arteries was antegrade and normal. The following are the velocities and ratios in the carotid arteries on both sides: RIGHT ICA PV: 81cm/sec RIGHT CCA PV: 75cm/sec RIGHT ICA ED: 21cm/sec RIGHT IC/CCPV: 1.1 RIGHT VERTEBRAL: antegrade flow RIGHT % STENOSIS: [Less than 50%] LEFT ICA PV: 105cm/sec LEFT CCA PV: 74cm/sec LEFT ICA ED: 28cm/sec LEFT IC/CCPV: 1.4 LEFT VERTEBRAL: antegrade flow LEFT % STENOSIS: [Less than 50%] <50% ICA Stenosis: PSV < 125cm/s (EDV < 40cm/s; SVR < 2.0) 50-69% ICA Stenosis: PSV < 125-229cm/s (EDV 40-99cm/s; SVR 2.0-3.9) >70% ICA Stenosis: PSV > 230cm/s (EDV >100cm/s; SVR >4.0) Impression: Diffuse atherosclerotic vascular disease with less than 50% stenosis of the bilateral internal carotid arteries by ultrasound criteria. HAL KOHLER MD Jul 17, 2017 15:05
[2017-07-17 19:47] VITALS: BP 129/65
[2017-07-17] MEDS: rOPINIRole 0.25 MG TABLET. PO SCH (21:16)
[2017-07-17] MEDS: ATORVASTATIN CALCIUM 10 MG TABLET. PO SCH (21:16)
[2017-07-17] MEDS: traZODone 50 MG TABLET. PO SCH (21:16)
[2017-07-17] MEDS: ACETAMINOPHEN 500 MG TABLET PO PRN (21:17)
[2017-07-17 23:30] VITALS: BP 103/59
--- NOTE | 2017-07-18 00:58 | PN ---
DATE: 07/17/2017 SUBJECTIVE: The patient denies any new medical or neurological complaints. She feels better. She did complain some pain of the left eye, which has resolved today. The patient stated her weakness has been better since admission. She denies headaches, visual disturbances, nausea, vomiting, chest pain, shortness of breath or palpitation. OBJECTIVE: GENERAL: Well-developed, well nourished -[place] female, not in acute distress. VITAL SIGNS: Blood pressure 101/53, respiratory rate 18, pulse is 61, temperature 98.8, oxygen saturation 98% on room air. HEENT: Normocephalic, atraumatic, otherwise, unremarkable. NECK: Supple. Negative for carotid bruit, lymphadenopathy or thyromegaly. LUNGS: Clear to A and P. CARDIOVASCULAR: Regular rate and rhythm, normal S1, S2. ABDOMEN: Soft. Bowel sounds positive. No palpable mass, organomegaly or tenderness. EXTREMITIES: Negative for cyanosis, clubbing or pitting edema. NEUROLOGICAL EXAM: Mental Status: The patient is alert and oriented x 3. Speech is fluent. There is no language dysfunction, otherwise, unremarkable. CRANIAL NERVES: Visual allen are full. The pupils are reactive to light and accommodation. The extraocular movements are intact. Cranial nerves are intact. Motor Examination: No focal muscle bulk was seen. The tone is normal. The strength is 4/5 throughout. Sensory examination revealed normal pinprick, light touch, vibratory and position senses. Deep tendon reflexes were symmetric and hypoactive with absent Achilles responses. Gait: The stance is more steady today. LABORATORY DATA: CBC revealed white blood cells 7.3, hemoglobin 10.1, hematocrit 30.6, platelet count 143,000. Chemistry revealed sodium 140, potassium 3.8, chloride 102, CO2 28, BUN 64, creatinine 3, calcium 8.9. DIAGNOSTIC DATA: Carotid Doppler study revealed diffuse atherosclerotic disease with stenosis less than 50% of bilateral internal carotid arteries. IMPRESSION: 1. Questionable transient ischemic attack, presented with left-sided weakness, lasted 1-2 hours, improved by current physical therapy. 2. Extensive medical problems as outlined before. Extensive medical problems include coronary artery disease, hypertension, hyperlipidemia, diabetes mellitus, gout and chronic renal failure, status post pacemaker placement. RECOMMENDATIONS: 1. Continue with current management initiated by Dr. Blair. 2. Continue with physical therapy as tolerated. M Kelin DONALD MD DR: Deny JOB#: [id number] / [id number]
[2017-07-18 05:44] VITALS: BP 101/53
[2017-07-18 06:28] LABS: CALCIUM 8.4 mg/dL (8.5-10.1); CREATININE 3.2 mg/dL (0.6-1.0); GFR 16.6
[2017-07-18] MEDS: HYDROcodone/APAP 5/325MG 1 TAB TABLET PO PRN (06:28)
[2017-07-18] MEDS: INSULIN ASPART 300 UNITS/3 ML INSULN.PEN SQ SCH ×4 (07:30→21:00)
[2017-07-18] MEDS: METOPROLOL TART IMMED RELEASE 25 MG TABLET PO SCH ×2 (08:21→21:01)
[2017-07-18] MEDS: SENNOSIDES/DOCUSATE 8.6/50MG TABLET. PO SCH ×2 (08:22→21:01)
[2017-07-18] MEDS: GLIMEPIRIDE 2 MG TABLET PO SCH (08:22)
[2017-07-18] MEDS: ALLOPURINOL 100 MG TABLET. PO SCH (08:22)
[2017-07-18] MEDS: PANTOPRAZOLE 40 MG TABLET. PO SCH (08:22)
[2017-07-18] MEDS: MAGNESIUM OXIDE 400 MG TABLET PO SCH (08:22)
[2017-07-18] MEDS: APIXABAN 2.5 MG TABLET PO SCH ×2 (08:22→21:01)
[2017-07-18] MEDS: LIDOCAINE (700MG/PATCH) PATCH. TD SCH (08:32)
[2017-07-18] MEDS: INSULIN DETEMIR 300 UNITS/3 ML INSULN.PEN. SQ SCH ×2 (08:33→21:09)
--- NOTE | 2017-07-18 10:56 | PDOC ---
PROGRESS NOTES Assessment 1. 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 CT negative. Pt to contine on Eliquis. No critical stenoses seen on carotid doppler. Neurology following, plan to transfer to [facility] soon for rehab. Pt says sx' s are improving, but still has objective LUE and LLE weakness. 2. Headache: Pt describes as radiating from back of head to left eye on left side. Possible occipital migraine? Pt started having neck pain/ARECHIGA this AM, given pain patch and Cozad. Pt reports she seems to get a ARECHIGA when she thinks about packing up all her things and selling her house. 3. CKD, stage 4: Creat steadily worsening. I am going to have her stay inpatient one more day and give her a bolus of NS. Hopefully her creat will improve. Encouraged increased fluid intake. 4. Hypertension: Some BP meds being held due to low BP. Will add back as tolerated. 5. DVT proph: Pt on Eliquis. 6. DIsp: Plan was to send to [facility] bed today, but pt worse today. Will continue inpatient care and hopeful for transfer to swing tomorrow. Problems: Plan of Care: see other orders Subjective Pt c/o left neck and head ache today. Took Cozad, now very tired. Says she is stressed about selling her house. Denies vision changes, new weakness, chest pain, SOA, fever, rash, or n/v. Pt says she is not quite ready to go to rehab. Objective Vital Signs Date Time Temp Pulse Resp B/P (MAP) Pulse Ox O2 Delivery O2 Flow Rate FiO2 07/18/17 08:21 60 101/53 07/18/17 08:05 Room Air 07/18/17 07:28 95 07/18/17 06:28 18 07/18/17 05:44 98.1 Intake and Output 07/18/17 07:00 Intake Total 1900 ml Balance 1900 ml Intake Oral 1900 ml # Voids 2 Abdomen: Soft, No tenderness Heart: Regular rate, No murmurs Extremities: No edema General: Alert, Oriented X3, Cooperative, mild distress HEENT: PERRLA, EOMI, Mucous membr. moist/pink Lungs: Clear to auscultation, Normal air movement Neck: No JVD, No thyromegaly, No LAD Neuro: Normal speech, Cranial nerves 3-12 NL, Other (Strength in LUE, LLE is same as yesterday, no change. Right side is normal.) Psych/Mental Status: Mental status NL Skin: No rashes Review of Relevant I have reviewed the following items alisha (where applicable) has been applied. Labs Laboratory Tests Test 07/16/17 11:24 07/16/17 16:23 07/16/17 19:37 07/17/17 05:59 Glucose (Fingerstick) 173 mg/dL (70-99) 216 mg/dL (70-99) 221 mg/dL (70-99) White Blood Count 7.3 x10^3/uL (4.0-11.0) Red Blood Count 3.61 x10^6/uL (3.50-5.40) Hemoglobin 10.1 g/dL (12.0-15.5) Hematocrit 30.6 % (36.0-47.0) Mean Corpuscular Volume 85 fL (79-100) Mean Corpuscular Hemoglobin 28 pg (25-35) Mean Corpuscular Hemoglobin Concent 33 g/dL (31-37) Red Cell Distribution Width 16.0 % (11.5-14.5) Platelet Count 143 x10^3/uL (140-400) Neutrophils (%) (Auto) 59 % (31-73) Lymphocytes (%) (Auto) 33 % (24-48) Monocytes (%) (Auto) 6 % (0-9) Eosinophils (%) (Auto) 2 % (0-3) Basophils (%) (Auto) 1 % (0-3) Neutrophils # (Auto) 4.3 x10^3uL (1.8-7.7) Lymphocytes # (Auto) 2.4 x10^3/uL (1.0-4.8) Monocytes # (Auto) 0.4 x10^3/uL (0.0-1.1) Eosinophils # (Auto) 0.2 x10^3/uL (0.0-0.7) Basophils # (Auto) 0.0 x10^3/uL (0.0-0.2) Sodium Level 140 mmol/L (136-145) Potassium Level 3.8 mmol/L (3.5-5.1) Chloride Level 102 mmol/L (98-107) Carbon Dioxide Level 28 mmol/L (21-32) Anion Gap 10 (6-14) Blood Urea Nitrogen 64 mg/dL (7-20) Creatinine 3.0 mg/dL (0.6-1.0) Estimated GFR (Cockcroft-Gault) 17.9 BUN/Creatinine Ratio 21 (6-20) Glucose Level 80 mg/dL (70-99) Calcium Level 8.9 mg/dL (8.5-10.1) Magnesium Level 2.2 mg/dL (1.8-2.4) Total Bilirubin 0.3 mg/dL (0.2-1.0) Aspartate Amino Transf (AST/SGOT) 15 U/L (15-37) Alanine Aminotransferase (ALT/SGPT) 14 U/L (14-59) Alkaline Phosphatase 44 U/L (46-116) Total Protein 6.5 g/dL (6.4-8.2) Albumin 3.0 g/dL (3.4-5.0) Albumin/Globulin Ratio 0.9 (1.0-1.7) Test 07/17/17 07:38 07/17/17 08:31 07/17/17 11:29 07/17/17 16:14 Glucose (Fingerstick) 65 mg/dL (70-99) 124 mg/dL (70-99) 171 mg/dL (70-99) 228 mg/dL (70-99) Test 07/17/17 20:16 07/18/17 06:02 07/18/17 07:36 Glucose (Fingerstick) 247 mg/dL (70-99) 138 mg/dL (70-99) Sodium Level 135 mmol/L (136-145) Potassium Level 4.0 mmol/L (3.5-5.1) Chloride Level 99 mmol/L (98-107) Carbon Dioxide Level 28 mmol/L (21-32) Anion Gap 8 (6-14) Blood Urea Nitrogen 66 mg/dL (7-20) Creatinine 3.2 mg/dL (0.6-1.0) Estimated GFR (Cockcroft-Gault) 16.6 Glucose Level 183 mg/dL (70-99) Calcium Level 8.4 mg/dL (8.5-10.1) Medications Current Medications Ondansetron HCl (Zofran) 4 mg PRN Q4HRS PRN IV NAUSEA/VOMITING Last administered on 07/16/17 03:25; Start 07/15/17 at 19:30; Stop 07/16/17 at 19 :29; Status DC Fentanyl Citrate (Fentanyl 2ml Vial) 50 mcg PRN Q2HR PRN IV PAIN; Start at 19:30; Stop 07/16/17 at 19:29; Status DC Acetaminophen/ Hydrocodone Bitart (Lortab 5/325) 1 tab PRN Q6HRS PRN PO PAIN Last administered on 07/18/17 06:28; Start 07/15/17 at 20:45 Acetaminophen (Tylenol) 500 mg PRN Q6HRS PRN PO PAIN / TEMP Last administered on 07/17/17 21:17; Start 07/15/17 at 20:45 Insulin Aspart (NovoLOG) 0-7 UNITS QIDACHS SQ Last administered on 07/17/17 21:19; Start 07/15/17 at 21:00 Dextrose 12.5 gm PRN Q15MIN PRN IV SEE COMMENTS; Start 07/15/17 at 20:45 Allopurinol (Zyloprim) 100 mg DAILY PO Last administered on 07/18/17 08:22; Start 07/16/17 at 09:00 Alprazolam (Xanax) 0.25 mg PRN TID PRN PO ANXIETY / AGITATION; Start 07/15/17 at 20:45 Amlodipine Besylate (Norvasc) 10 mg DAILY PO ; Start 07/16/17 at 09:00; Stop 07/16/17 at 17:08; Status DC Apixaban (Eliquis) 2.5 mg BID PO Last administered on 07/18/17 08:22; Start 07/15/17 at 21:00 Atorvastatin Calcium (Lipitor) 10 mg HS PO Last administered on 07/17/17 21: 16; Start 07/15/17 at 21:00 Furosemide (Lasix) 40 mg DAILY PO ; Start 07/16/17 at 09:00; Stop 07/16/17 at 17:08; Status DC Albuterol/ Ipratropium (Duoneb) 3 ml PRN Q6HRS PRN NEB SHORTNESS OF BREATH; Start 07/15/17 at 20:45 Lidocaine (Lidoderm) 1 patch DAILY TD Last administered on 07/18/17 08:32; Start 07/16/17 at 09:00 Magnesium Oxide (Magnesium Oxide) 400 mg DAILY PO Last administered on 08:22; Start 07/16/17 at 09:00 Metolazone (Zaroxolyn) 2.5 mg 3X/WEEK PO ; Start 07/17/17 at 09:00; Stop 07/17 at 09:24; Status DC Nitroglycerin (Nitrostat) 0.4 mg PRN Q5MIN PRN SL CHEST PAIN; Start 07/15/17 at 20:45 Pantoprazole Sodium (Protonix) 40 mg DAILYAC PO Last administered on 08:22; Start 07/16/17 at 07:30 Ropinirole HCl (Requip) 0.25 mg HS PO Last administered on 07/17/17 21:16; Start 07/15/17 at 21:00 Senna/Docusate Sodium (Senna Plus) 1 tab BID PO Last administered on 08:22; Start 07/15/17 at 21:00 Trazodone HCl (Desyrel) 50 mg HS PO Last administered on 07/17/17 21:16; Start 07/15/17 at 21:00 Vitamin D (Vitamin D3) 5,000 unit WEEKLY PO ; Start 07/22/17 at 09:00 Glimepiride (Amaryl) 4 mg DAILY PO Last administered on 07/18/17 08:22; Start 07/16/17 at 09:00 Insulin Detemir (Levemir) 20 units BID SQ Last administered on 07/18/17 08:33 ; Start 07/15/17 at 21:00 Meclizine HCl (Antivert) 25 mg PRN TID PRN PO DIZZINESS Last administered on 03:25; Start 07/15/17 at 21:00 Metoprolol Tartrate (Lopressor) 25 mg BID PO Last administered on 07/18/17 08 :21; Start 07/15/17 at 21:00 Active Scripts Active Trazodone Hcl 50 Mg Tablet 50 Mg PO HS 90 Days Requip (Ropinirole Hcl) 0.25 Mg Tablet 0.25 Mg PO HS 90 Days Pantoprazole Sodium 40 Mg Tablet.dr 40 Mg PO DAILYAC 90 Days Lidocaine 1 Each Adh..patch 1 Patch TD DAILY 60 Days Metolazone 2.5 Mg Tablet 2.5 Mg PO 3X/WEEK 90 Days Allopurinol 100 Mg Tablet 1 Tab PO DAILY Amlodipine Besylate 5 Mg Tablet 10 Mg PO DAILY 90 Days LAST DOSE GIVEN: DATE: 01/01/17 TIME: 0900 NEXT DOSE DUE: DATE: 01/02/17 TIME: 0900 Reported Meclizine Hcl 25 Mg Tablet 1 Tab PO PRN TID NEXT DOSE DUE: DATE: TODAY TIME: IF NEEDED Duoneb 0.5-3(2.5) Mg/3 Ml (Albuterol/Ipratropium) 3 Ml Ampul.neb 3 Ml NEB PRN Q6HRS PRN LAST DOSE GIVEN: DATE: TODAY TIME: AM NEXT DOSE DUE: DATE: TODAY TIME: AFTERNOON Atorvastatin Calcium 10 Mg Tablet 1 Tab PO HS LAST DOSE GIVEN: DATE: YESTER TIME: AT BEDTIME NEXT DOSE DUE: DATE: TODAY TIME: AT BEDTIME Tylenol (Acetaminophen) 325 Mg Tablet 2 Tab PO PRN Q6HRS PRN NEXT DOSE DUE: DATE: TODAY TIME: IF NEEDED Senokot-S Tablet (Sennosides/Docusate Sodium) 1 Each Tablet 1 Tab PO BID LAST DOSE GIVEN: DATE: TODAY TIME: AM NEXT DOSE DUE: DATE: TODAY TIME: PM Bystolic (Nebivolol Hcl) 5 Mg Tablet 1 Tab PO HS LAST DOSE GIVEN: DATE: TIME: AT BEDTIME NEXT DOSE DUE: DATE: TODAY TIME: AT BEDTIME Magnesium Oxide 400 Mg Tablet 1 Tab PO DAILY LAST DOSE GIVEN: DATE: TODAY TIME: AM NEXT DOSE DUE: DATE: TOMORROW TIME: AM Glimepiride 4 Mg Tablet 1 Tab PO DAILY LAST DOSE GIVEN: DATE: TODAY TIME: AM NEXT DOSE DUE: DATE: TOMORR TIME: AM Furosemide 40 Mg Tablet 1 Tab PO DAILY LAST DOSE GIVEN: DATE: TODAY TIME: AM NEXT DOSE DUE: DATE: TOMORROW TIME: AM NITROGLYCERIN SubLingual (Nitroglycerin) 0.4 Mg Tab.subl 0.4 Mg SL PRN Q5MIN PRN NEXT DOSE DUE: DATE: TODAY TIME: IF NEEDED NEXT DOSE DUE: DATE: as needed for chest pain TIME: Xanax (Alprazolam) 0.25 Mg Tablet 0.25 Mg PO PRN TID PRN NEXT DOSE DUE: DATE: TODAY TIME: IF NEEDED NEXT DOSE DUE: DATE: 01/02/17 TIME: 0900 Levemir (Insulin Detemir) 100 Unit/1 Ml Vial 20 Unit SQ BID LAST DOSE GIVEN: DATE: YESTERDAY TIME: AT BEDTIME NEXT DOSE DUE: DATE: TODAY TIME: AT BEDTIME Eliquis (Apixaban) 2.5 Mg Tablet 2.5 Mg PO BID LAST DOSE GIVEN: DATE: TODAY TIME: AM NEXT DOSE DUE: DATE: TODAY TIME: PM Vitamin D (Cholecalciferol (Vitamin D3)) 2,000 Unit Capsule 5,000 Unit PO WEEKLY Continue taking on your weekly schedule DATE: 04/18/17 TIME: 0900 NEXT DOSE DUE: DATE: 04/25/17 TIME: 0900 Vitals/I & O Vital Sign - Last 24 Hours 07/17/17 07/17/17 07/17/17 07/17/17 11:02 15:02 19:10 19:47 Temp 97.9 98.4 98.5 Pulse 68 58 63 Resp 20 20 17 B/P (MAP) 108/64 (79) 127/79 (95) 129/65 (86) Pulse Ox 97 97 99 O2 Delivery Room Air Room Air Room Air Room Air 07/17/17 07/17/17 07/18/17 07/18/17 21:16 23:30 05:44 06:28 Temp 98.1 Pulse 63 57 60 Resp 14 14 18 B/P (MAP) 129/65 103/59 (74) 101/53 (69) Pulse Ox 100 95 O2 Delivery Room Air Room Air Room Air 07/18/17 07/18/17 07/18/17 07:28 08:05 08:21 Pulse 60 B/P (MAP) 101/53 Pulse Ox 95 O2 Delivery Room Air Room Air Intake and Output 07/17/17 07/17/17 07/18/17 15:00 23:00 07:00 Intake Total 600 ml 1200 ml 100 ml Balance 600 ml 1200 ml 100 ml HAL KOHLER MD Jul 18, 2017 10:56
[2017-07-18] MEDS: IV NORMAL SALINE 1,000ML 1,000 ML IV SCH ×2 (11:00→21:01)
[2017-07-18 12:07] VITALS: BP 91/46
[2017-07-18 15:35] VITALS: BP 107/55
[2017-07-18 20:04] VITALS: BP 124/63
[2017-07-18] MEDS: rOPINIRole 0.25 MG TABLET. PO SCH (21:01)
[2017-07-18] MEDS: ATORVASTATIN CALCIUM 10 MG TABLET. PO SCH (21:01)
[2017-07-18] MEDS: traZODone 50 MG TABLET. PO SCH (21:01)
[2017-07-18] MEDS: ACETAMINOPHEN 500 MG TABLET PO PRN (21:01)
[2017-07-19] MEDS: IV NORMAL SALINE 1,000ML 1,000 ML IV SCH (04:55)
[2017-07-19 05:34] VITALS: BP 152/84
[2017-07-19] MEDS: INSULIN ASPART 300 UNITS/3 ML INSULN.PEN SQ SCH ×2 (07:30→11:30)
[2017-07-19] MEDS: APIXABAN 2.5 MG TABLET PO SCH (08:10)
[2017-07-19] MEDS: ALLOPURINOL 100 MG TABLET. PO SCH (08:10)
[2017-07-19] MEDS: PANTOPRAZOLE 40 MG TABLET. PO SCH (08:11)
[2017-07-19] MEDS: GLIMEPIRIDE 2 MG TABLET PO SCH (08:11)
[2017-07-19] MEDS: METOPROLOL TART IMMED RELEASE 25 MG TABLET PO SCH (08:11)
[2017-07-19] MEDS: LIDOCAINE (700MG/PATCH) PATCH. TD SCH (08:11)
[2017-07-19] MEDS: MAGNESIUM OXIDE 400 MG TABLET PO SCH (08:11)
[2017-07-19] MEDS: SENNOSIDES/DOCUSATE 8.6/50MG TABLET. PO SCH (08:11)
[2017-07-19] MEDS: INSULIN DETEMIR 300 UNITS/3 ML INSULN.PEN. SQ SCH (08:14)
[2017-07-19 10:04] LABS: CALCIUM 8.6 mg/dL (8.5-10.1); CREATININE 2.4 mg/dL (0.6-1.0); GFR 23.1; POTASSIUM 4.5 mmol/L (3.5-5.1)
[2017-07-19 11:04] VITALS: BP 130/57
--- NOTE | 2017-07-19 12:32 | DISCH ---
DISCHARGE INSTRUCTIONS-DC Condition on Discharge Condition on Discharge: Stable Problems: Activity after Discharge Activity Instructions for Disc: Activity as tolerated Diet after Discharge Diet after Discharge: Cardiac Checks after Discharge Checks after discharge: Check blood press - daily, Check blood sugar, ac/hs Contacting the [facility] after DC Call your doctor for: If your condition worsens Follow-Up Follow up with: PCP after d/c from [facility] bed Follow up with: Check BMP every other day until d/c HAL KOHLER MD Jul 19, 2017 12:32
--- NOTE | 2017-07-19 12:38 | PDOC3 ---
Discharge Summary Discharge Summary Date of Admission Date of Admission: Jul 15, 2017 at 20:22 Admitting Diagnosis Severe intractable headache TIA CKD stage 4 CHF (chronic) DM2 CVA (late effects) Date of Discharge: Jul 19, 2017 Discharge Diagnosis Severe intractable headache TIA CKD stage 4 CHF (chronic) DM2 CVA (late effects) Laboratory Findings Laboratory Tests Test 07/15/17 17:35 07/15/17 18:00 07/15/17 21:01 07/16/17 03:20 White Blood Count 7.8 x10^3/uL (4.0-11.0) Red Blood Count 4.07 x10^6/uL (3.50-5.40) Hemoglobin 11.2 g/dL (12.0-15.5) Hematocrit 34.4 % (36.0-47.0) Mean Corpuscular Volume 85 fL (79-100) Mean Corpuscular Hemoglobin 28 pg (25-35) Mean Corpuscular Hemoglobin Concent 33 g/dL (31-37) Red Cell Distribution Width 16.0 % (11.5-14.5) Platelet Count 167 x10^3/uL (140-400) Neutrophils (%) (Auto) 64 % (31-73) Lymphocytes (%) (Auto) 27 % (24-48) Monocytes (%) (Auto) 6 % (0-9) Eosinophils (%) (Auto) 2 % (0-3) Basophils (%) (Auto) 1 % (0-3) Neutrophils # (Auto) 5.0 x10^3uL (1.8-7.7) Lymphocytes # (Auto) 2.1 x10^3/uL (1.0-4.8) Monocytes # (Auto) 0.5 x10^3/uL (0.0-1.1) Eosinophils # (Auto) 0.2 x10^3/uL (0.0-0.7) Basophils # (Auto) 0.1 x10^3/uL (0.0-0.2) Sodium Level 140 mmol/L (136-145) Potassium Level 4.1 mmol/L (3.5-5.1) Chloride Level 102 mmol/L (98-107) Carbon Dioxide Level 28 mmol/L (21-32) Anion Gap 10 (6-14) Blood Urea Nitrogen 60 mg/dL (7-20) Creatinine 2.3 mg/dL (0.6-1.0) Estimated GFR (Cockcroft-Gault) 24.3 BUN/Creatinine Ratio 26 (6-20) Glucose Level 163 mg/dL (70-99) Lactic Acid Level 1.2 mmol/L (0.4-2.0) Calcium Level 9.9 mg/dL (8.5-10.1) Total Bilirubin 0.2 mg/dL (0.2-1.0) Aspartate Amino Transf (AST/SGOT) 19 U/L (15-37) Alanine Aminotransferase (ALT/SGPT) 17 U/L (14-59) Alkaline Phosphatase 52 U/L (46-116) Troponin I Quantitative 0.027 ng/mL (0-0.055) MM-Dnu-B-Type Natriuretic Peptide 1612 pg/mL (0-449) Total Protein 7.6 g/dL (6.4-8.2) Albumin 3.6 g/dL (3.4-5.0) Albumin/Globulin Ratio 0.9 (1.0-1.7) Urine Collection Type Unknown Urine Color Colorless Urine Clarity Clear Urine pH 5.0 Urine Specific [place] <=1.005 Urine Protein Trace (NEG-TRACE) Urine Glucose (UA) Neg mg/dL (NEG) Urine Ketones (Stick) Neg mg/dL (NEG) Urine Blood Trace (NEG) Urine Nitrite Neg (NEG) Urine Bilirubin Neg (NEG) Urine Urobilinogen Dipstick 0.2 mg/dL (0.2 mg/dL) Urine Leukocyte Esterase Neg (NEG) Urine RBC Occ /HPF (0-2) Urine WBC Occ /HPF (0-4) Urine Squamous Epithelial Cells Mod /LPF Urine Bacteria 0 /HPF (0-FEW) Glucose (Fingerstick) 126 mg/dL (70-99) 160 mg/dL (70-99) Test 07/16/17 05:52 07/16/17 07:31 07/16/17 11:24 07/16/17 16:23 White Blood Count 7.0 x10^3/uL (4.0-11.0) Red Blood Count 3.68 x10^6/uL (3.50-5.40) Hemoglobin 10.3 g/dL (12.0-15.5) Hematocrit 31.2 % (36.0-47.0) Mean Corpuscular Volume 85 fL (79-100) Mean Corpuscular Hemoglobin 28 pg (25-35) Mean Corpuscular Hemoglobin Concent 33 g/dL (31-37) Red Cell Distribution Width 15.9 % (11.5-14.5) Platelet Count 145 x10^3/uL (140-400) Neutrophils (%) (Auto) 59 % (31-73) Lymphocytes (%) (Auto) 32 % (24-48) Monocytes (%) (Auto) 6 % (0-9) Eosinophils (%) (Auto) 2 % (0-3) Basophils (%) (Auto) 1 % (0-3) Neutrophils # (Auto) 4.2 x10^3uL (1.8-7.7) Lymphocytes # (Auto) 2.2 x10^3/uL (1.0-4.8) Monocytes # (Auto) 0.4 x10^3/uL (0.0-1.1) Eosinophils # (Auto) 0.1 x10^3/uL (0.0-0.7) Basophils # (Auto) 0.1 x10^3/uL (0.0-0.2) Sodium Level 143 mmol/L (136-145) Potassium Level 4.0 mmol/L (3.5-5.1) Chloride Level 105 mmol/L (98-107) Carbon Dioxide Level 29 mmol/L (21-32) Anion Gap 9 (6-14) Blood Urea Nitrogen 61 mg/dL (7-20) Creatinine 2.8 mg/dL (0.6-1.0) Estimated GFR (Cockcroft-Gault) 19.3 Glucose Level 130 mg/dL (70-99) Calcium Level 9.2 mg/dL (8.5-10.1) Triglycerides Level 105 mg/dL (0-150) Cholesterol Level 195 mg/dL (0-200) LDL Cholesterol, Calculated 118 mg/dL (0-100) VLDL Cholesterol, Calculated 21 mg/dL (0-40) Non-HDL Cholesterol Calculated 139 mg/dL (0-129) HDL Cholesterol 56 mg/dL (40-60) Cholesterol/HDL Ratio 3.0 Glucose (Fingerstick) 95 mg/dL (70-99) 173 mg/dL (70-99) 216 mg/dL (70-99) Test 07/16/17 19:37 07/17/17 05:59 07/17/17 07:38 07/17/17 08:31 Glucose (Fingerstick) 221 mg/dL (70-99) 65 mg/dL (70-99) 124 mg/dL (70-99) White Blood Count 7.3 x10^3/uL (4.0-11.0) Red Blood Count 3.61 x10^6/uL (3.50-5.40) Hemoglobin 10.1 g/dL (12.0-15.5) Hematocrit 30.6 % (36.0-47.0) Mean Corpuscular Volume 85 fL (79-100) Mean Corpuscular Hemoglobin 28 pg (25-35) Mean Corpuscular Hemoglobin Concent 33 g/dL (31-37) Red Cell Distribution Width 16.0 % (11.5-14.5) Platelet Count 143 x10^3/uL (140-400) Neutrophils (%) (Auto) 59 % (31-73) Lymphocytes (%) (Auto) 33 % (24-48) Monocytes (%) (Auto) 6 % (0-9) Eosinophils (%) (Auto) 2 % (0-3) Basophils (%) (Auto) 1 % (0-3) Neutrophils # (Auto) 4.3 x10^3uL (1.8-7.7) Lymphocytes # (Auto) 2.4 x10^3/uL (1.0-4.8) Monocytes # (Auto) 0.4 x10^3/uL (0.0-1.1) Eosinophils # (Auto) 0.2 x10^3/uL (0.0-0.7) Basophils # (Auto) 0.0 x10^3/uL (0.0-0.2) Sodium Level 140 mmol/L (136-145) Potassium Level 3.8 mmol/L (3.5-5.1) Chloride Level 102 mmol/L (98-107) Carbon Dioxide Level 28 mmol/L (21-32) Anion Gap 10 (6-14) Blood Urea Nitrogen 64 mg/dL (7-20) Creatinine 3.0 mg/dL (0.6-1.0) Estimated GFR (Cockcroft-Gault) 17.9 BUN/Creatinine Ratio 21 (6-20) Glucose Level 80 mg/dL (70-99) Calcium Level 8.9 mg/dL (8.5-10.1) Magnesium Level 2.2 mg/dL (1.8-2.4) Total Bilirubin 0.3 mg/dL (0.2-1.0) Aspartate Amino Transf (AST/SGOT) 15 U/L (15-37) Alanine Aminotransferase (ALT/SGPT) 14 U/L (14-59) Alkaline Phosphatase 44 U/L (46-116) Total Protein 6.5 g/dL (6.4-8.2) Albumin 3.0 g/dL (3.4-5.0) Albumin/Globulin Ratio 0.9 (1.0-1.7) Test 07/17/17 11:29 07/17/17 16:14 07/17/17 20:16 07/18/17 06:02 Glucose (Fingerstick) 171 mg/dL (70-99) 228 mg/dL (70-99) 247 mg/dL (70-99) Sodium Level 135 mmol/L (136-145) Potassium Level 4.0 mmol/L (3.5-5.1) Chloride Level 99 mmol/L (98-107) Carbon Dioxide Level 28 mmol/L (21-32) Anion Gap 8 (6-14) Blood Urea Nitrogen 66 mg/dL (7-20) Creatinine 3.2 mg/dL (0.6-1.0) Estimated GFR (Cockcroft-Gault) 16.6 Glucose Level 183 mg/dL (70-99) Calcium Level 8.4 mg/dL (8.5-10.1) Test 07/18/17 07:36 07/18/17 11:58 07/18/17 16:21 07/18/17 19:44 Glucose (Fingerstick) 138 mg/dL (70-99) 162 mg/dL (70-99) 222 mg/dL (70-99) 199 mg/dL (70-99) Test 07/19/17 07:32 07/19/17 09:27 07/19/17 11:23 07/19/17 16:40 Glucose (Fingerstick) 125 mg/dL (70-99) 193 mg/dL (70-99) 151 mg/dL (70-99) Sodium Level 138 mmol/L (136-145) Potassium Level 4.5 mmol/L (3.5-5.1) Chloride Level 104 mmol/L (98-107) Carbon Dioxide Level 27 mmol/L (21-32) Anion Gap 7 (6-14) Blood Urea Nitrogen 52 mg/dL (7-20) Creatinine 2.4 mg/dL (0.6-1.0) Estimated GFR (Cockcroft-Gault) 23.1 Glucose Level 174 mg/dL (70-99) Calcium Level 8.6 mg/dL (8.5-10.1) Hospital Course Pt was admitted to the hospital due to severe ARECHIGA and possible TIA/CVA. She had objective left sided weakness on admission. Her ARECHIGA is not new. She was seen by neurology and had a CT head that was unchanged, no new infarcts. Her weakness did improve, but did not get completely back to normal. It was recommended that she have swing bed status to get stronger so that she can go home. Her CKD is stage 4, and baseline creat is 2.4. It went up to 3.2 and her diuretics were held, along w/ her amlodipine as her BP was on the low side. Creat improved from 3.2 to 2.4 after a liter of fluids. She was restarted on her TIW metolazone, but Lasix and amlodipine will be held for now. She will need a f/u BMP in 2 days when on swing bed status. Condition at Discharge: Stable. Home Meds Active Scripts Trazodone Hcl (TRAZODONE HCL) 50 Mg Tablet, 50 MG PO HS for 90 Days, #90 TAB Prov:WARD ALCANTAR DO 04/23/17 Ropinirole Hcl (REQUIP) 0.25 Mg Tablet, 0.25 MG PO HS for 90 Days, #90 TAB 1 Refill Prov:WARD ALCANTAR DO 04/23/17 Pantoprazole Sodium (PANTOPRAZOLE SODIUM) 40 Mg Tablet.dr, 40 MG PO DAILYAC for 90 Days, #90 TAB 1 Refill Prov:WARD ALCANTAR DO 04/23/17 Lidocaine (Lidocaine) 1 Each Adh..patch, 1 PATCH TD DAILY for 60 Days, #60 PATCH Prov:WARD ALCANTAR DO 04/23/17 Metolazone (METOLAZONE) 2.5 Mg Tablet, 2.5 MG PO 3X/WEEK for 90 Days, #180 TAB 3 Refills Prov:WARD ALCANTAR DO 04/23/17 Allopurinol (ALLOPURINOL) 100 Mg Tablet, 1 TAB PO DAILY, #90 TAB 1 Refill Prov:WARD ALCANTAR DO 04/07/17 Amlodipine Besylate (AMLODIPINE BESYLATE) 5 Mg Tablet, 10 MG PO DAILY for Hypertension for 90 Days, #180 TAB 1 Refill LAST DOSE GIVEN: DATE: 01/01/17 TIME: 0900 NEXT DOSE DUE: DATE: 01/02/17 TIME: 0900 Prov:WARD ALCANTAR DO 04/07/17 Reported Medications Meclizine Hcl (MECLIZINE HCL) 25 Mg Tablet, 1 TAB PO PRN TID for DIZZINESS NEXT DOSE DUE: DATE: TODAY TIME: IF NEEDED 03/27/17 Ipratropium/Albuterol Sulfate (DUONEB 0.5-3(2.5) MG/3 ML) 3 Ml Ampul.neb, 3 ML NEB PRN Q6HRS Y for SHORTNESS OF BREATH LAST DOSE GIVEN: DATE: TODAY TIME: AM NEXT DOSE DUE: DATE: TODAY TIME: AFTERNOON 03/27/17 Atorvastatin Calcium (ATORVASTATIN CALCIUM) 10 Mg Tablet, 1 TAB PO HS LAST DOSE GIVEN: DATE: YESTER TIME: AT BEDTIME NEXT DOSE DUE: DATE: TODAY TIME: AT BEDTIME 03/27/17 Acetaminophen (TYLENOL) 325 Mg Tablet, 2 TAB PO PRN Q6HRS Y for PAIN NEXT DOSE DUE: DATE: TODAY TIME: IF NEEDED 03/27/17 Sennosides/Docusate Sodium (SENOKOT-S TABLET) 1 Each Tablet, 1 TAB PO BID LAST DOSE GIVEN: DATE: TODAY TIME: AM NEXT DOSE DUE: DATE: TODAY TIME: PM 03/27/17 Nebivolol Hcl (BYSTOLIC) 5 Mg Tablet, 1 TAB PO HS LAST DOSE GIVEN: DATE: TIME: AT BEDTIME NEXT DOSE DUE: DATE: TODAY TIME: AT BEDTIME 03/27/17 Magnesium Oxide (MAGNESIUM OXIDE) 400 Mg Tablet, 1 TAB PO DAILY LAST DOSE GIVEN: DATE: TODAY TIME: AM NEXT DOSE DUE: DATE: TOMORROW TIME: AM 03/27/17 Glimepiride (GLIMEPIRIDE) 4 Mg Tablet, 1 TAB PO DAILY LAST DOSE GIVEN: DATE: TODAY TIME: AM NEXT DOSE DUE: DATE: TOMORROW TIME: AM 03/27/17 Furosemide (FUROSEMIDE) 40 Mg Tablet, 1 TAB PO DAILY LAST DOSE GIVEN: DATE: TODAY TIME: AM NEXT DOSE DUE: DATE: TOMORROW TIME: AM 03/27/17 Nitroglycerin (NITROGLYCERIN SubLingual) 0.4 Mg Tab.subl, 0.4 MG SL PRN Q5MIN Y for CHEST PAIN NEXT DOSE DUE: DATE: TODAY TIME: IF NEEDED NEXT DOSE DUE: DATE: as needed for chest pain TIME: 12/19/16 Alprazolam (XANAX) 0.25 Mg Tablet, 0.25 MG PO PRN TID Y for ANXIETY / AGITATION NEXT DOSE DUE: DATE: TODAY TIME: IF NEEDED NEXT DOSE DUE: DATE: 01/02/17 TIME: 0912/17/16 Insulin Detemir (LEVEMIR) 100 Unit/1 Ml Vial, 20 UNIT SQ BID for High Blood sugar (Long acting) LAST DOSE GIVEN: DATE: YESTERDAY TIME: AT BEDTIME NEXT DOSE DUE: DATE: TODAY TIME: AT BEDTIME 12/17/16 Apixaban (ELIQUIS) 2.5 Mg Tablet, 2.5 MG PO BID for Blood thinner LAST DOSE GIVEN: DATE: TODAY TIME: AM NEXT DOSE DUE: DATE: TODAY TIME: PM 12/17/16 Cholecalciferol (Vitamin D3) (VITAMIN D) 2,000 Unit Capsule, 5000 UNIT PO WEEKLY for Supplement/Vitamin Continue taking on your weekly schedule DATE: 04/18/17 TIME: 0900 NEXT DOSE DUE: DATE: 04/25/17 TIME: 0912/17/16 Inpatient Meds Current Medications Ondansetron HCl (Zofran) 4 mg PRN Q4HRS PRN IV NAUSEA/VOMITING Last administered on 07/16/17t 03:25; Start 07/15/17 at 19:30; Stop 07/16/17 at 19 :29; Status DC Fentanyl Citrate (Fentanyl 2ml Vial) 50 mcg PRN Q2HR PRN IV PAIN; Start at 19:30; Stop 07/16/17 at 19:29; Status DC Acetaminophen/ Hydrocodone Bitart (Lortab 5/325) 1 tab PRN Q6HRS PRN PO PAIN Last administered on 07/18/17 06:28; Start 07/15/17 at 20:45; Stop 07/19/17 at 16:01; Status DC Acetaminophen (Tylenol) 500 mg PRN Q6HRS PRN PO PAIN / TEMP Last administered on 07/18/17 21:01; Start 07/15/17 at 20:45; Stop 07/19/17 at 16:01; Status DC Insulin Aspart (NovoLOG) 0-7 UNITS QIDACHS SQ Last administered on 07/19/17 11:30; Start 07/15/17 at 21:00; Stop 07/19/17 at 16:01; Status DC Dextrose 12.5 gm PRN Q15MIN PRN IV SEE COMMENTS; Start 07/15/17 at 20:45; Stop 07/19/17 at 16:01; Status DC Allopurinol (Zyloprim) 100 mg DAILY PO Last administered on 07/19/17 08:10; Start 07/16/17 at 09:00; Stop 07/19/17 at 16:01; Status DC Alprazolam (Xanax) 0.25 mg PRN TID PRN PO ANXIETY / AGITATION; Start 07/15/17 at 20:45; Stop 07/19/17 at 16:01; Status DC Amlodipine Besylate (Norvasc) 10 mg DAILY PO ; Start 07/16/17 at 09:00; Stop 07/16/17 at 17:08; Status DC Apixaban (Eliquis) 2.5 mg BID PO Last administered on 07/19/17 08:10; Start 07/15/17 at 21:00; Stop 07/19/17 at 16:01; Status DC Atorvastatin Calcium (Lipitor) 10 mg HS PO Last administered on 07/18/17 21: 01; Start 07/15/17 at 21:00; Stop 07/19/17 at 16:01; Status DC Furosemide (Lasix) 40 mg DAILY PO ; Start 07/16/17 at 09:00; Stop 07/16/17 at 17:08; Status DC Albuterol/ Ipratropium (Duoneb) 3 ml PRN Q6HRS PRN NEB SHORTNESS OF BREATH; Start 07/15/17 at 20:45; Stop 07/19/17 at 16:01; Status DC Lidocaine (Lidoderm) 1 patch DAILY TD Last administered on 07/19/17 08:11; Start 07/16/17 at 09:00; Stop 07/19/17 at 16:01; Status DC Magnesium Oxide (Magnesium Oxide) 400 mg DAILY PO Last administered on 08:11; Start 07/16/17 at 09:00; Stop 07/19/17 at 16:01; Status DC Metolazone (Zaroxolyn) 2.5 mg 3X/WEEK PO ; Start 07/17/17 at 09:00; Stop 07/17 at 09:24; Status DC Nitroglycerin (Nitrostat) 0.4 mg PRN Q5MIN PRN SL CHEST PAIN; Start 07/15/17 at 20:45; Stop 07/19/17 at 16:01; Status DC Pantoprazole Sodium (Protonix) 40 mg DAILYAC PO Last administered on 08:11; Start 07/16/17 at 07:30; Stop 07/19/17 at 16:01; Status DC Ropinirole HCl (Requip) 0.25 mg HS PO Last administered on 07/18/17 21:01; Start 07/15/17 at 21:00; Stop 07/19/17 at 16:01; Status DC Senna/Docusate Sodium (Senna Plus) 1 tab BID PO Last administered on 08:11; Start 07/15/17 at 21:00; Stop 07/19/17 at 16:01; Status DC Trazodone HCl (Desyrel) 50 mg HS PO Last administered on 07/18/17 21:01; Start 07/15/17 at 21:00; Stop 07/19/17 at 16:01; Status DC Vitamin D (Vitamin D3) 5,000 unit WEEKLY PO ; Start 07/22/17 at 09:00; Stop at 09:00; Status DC Glimepiride (Amaryl) 4 mg DAILY PO Last administered on 07/19/17 08:11; Start 07/16/17 at 09:00; Stop 07/19/17 at 16:01; Status DC Insulin Detemir (Levemir) 20 units BID SQ Last administered on 07/19/17 08:14 ; Start 07/15/17 at 21:00; Stop 07/19/17 at 16:01; Status DC Meclizine HCl (Antivert) 25 mg PRN TID PRN PO DIZZINESS Last administered on 03:25; Start 07/15/17 at 21:00; Stop 07/19/17 at 16:01; Status DC Metoprolol Tartrate (Lopressor) 25 mg BID PO Last administered on 07/19/17 08 :11; Start 07/15/17 at 21:00; Stop 07/19/17 at 16:01; Status DC Sodium Chloride 1,000 ml @ 100 mls/hr Q10H IV Last administered on 07/19/17 04:55; Start 07/18/17 at 11:00; Stop 07/19/17 at 16:01; Status DC Active Scripts Active Trazodone Hcl 50 Mg Tablet 50 Mg PO HS 90 Days Requip (Ropinirole Hcl) 0.25 Mg Tablet 0.25 Mg PO HS 90 Days Pantoprazole Sodium 40 Mg Tablet.dr 40 Mg PO DAILYAC 90 Days Lidocaine 1 Each Adh..patch 1 Patch TD DAILY 60 Days Metolazone 2.5 Mg Tablet 2.5 Mg PO 3X/WEEK 90 Days Allopurinol 100 Mg Tablet 1 Tab PO DAILY Amlodipine Besylate 5 Mg Tablet 10 Mg PO DAILY 90 Days LAST DOSE GIVEN: DATE: 01/01/17 TIME: 0900 NEXT DOSE DUE: DATE: 01/02/17 TIME: 0900 Reported Meclizine Hcl 25 Mg Tablet 1 Tab PO PRN TID NEXT DOSE DUE: DATE: TODAY TIME: IF NEEDED Duoneb 0.5-3(2.5) Mg/3 Ml (Albuterol/Ipratropium) 3 Ml Ampul.neb 3 Ml NEB PRN Q6HRS PRN LAST DOSE GIVEN: DATE: TODAY TIME: AM NEXT DOSE DUE: DATE: TODAY TIME: AFTERNOON Atorvastatin Calcium 10 Mg Tablet 1 Tab PO HS LAST DOSE GIVEN: DATE: YESTERDAY TIME: AT BEDTIME NEXT DOSE DUE: DATE: TODAY TIME: AT BEDTIME Tylenol (Acetaminophen) 325 Mg Tablet 2 Tab PO PRN Q6HRS PRN NEXT DOSE DUE: DATE: TODAY TIME: IF NEEDED Senokot-S Tablet (Sennosides/Docusate Sodium) 1 Each Tablet 1 Tab PO BID LAST DOSE GIVEN: DATE: TIME: AM NEXT DOSE DUE: DATE: TODAY TIME: PM Bystolic (Nebivolol Hcl) 5 Mg Tablet 1 Tab PO HS LAST DOSE GIVEN: DATE: TIME: AT BEDTIME NEXT DOSE DUE: DATE: TIME: AT BEDTIME Magnesium Oxide 400 Mg Tablet 1 Tab PO DAILY LAST DOSE GIVEN: DATE: TIME: AM NEXT DOSE DUE: DATE: TOMORR TIME: AM Glimepiride 4 Mg Tablet 1 Tab PO DAILY LAST DOSE GIVEN: DATE: TIME: AM NEXT DOSE DUE: DATE: ORR TIME: AM Furosemide 40 Mg Tablet 1 Tab PO DAILY LAST DOSE GIVEN: DATE: TIME: AM NEXT DOSE DUE: DATE: TIME: AM NITROGLYCERIN SubLingual (Nitroglycerin) 0.4 Mg Tab.subl 0.4 Mg SL PRN Q5MIN PRN NEXT DOSE DUE: DATE: TIME: IF NEEDED NEXT DOSE DUE: DATE: as needed for chest pain TIME: Xanax (Alprazolam) 0.25 Mg Tablet 0.25 Mg PO PRN TID PRN NEXT DOSE DUE: DATE: TIME: IF NEEDED NEXT DOSE DUE: DATE: 01/02/17 TIME: 0900 Levemir (Insulin Detemir) 100 Unit/1 Ml Vial 20 Unit SQ BID LAST DOSE GIVEN: DATE: TIME: AT BEDTIME NEXT DOSE DUE: DATE: TIME: AT BEDTIME Eliquis (Apixaban) 2.5 Mg Tablet 2.5 Mg PO BID LAST DOSE GIVEN: DATE: TIME: AM NEXT DOSE DUE: DATE: TODAY TIME: PM Vitamin D (Cholecalciferol (Vitamin D3)) 2,000 Unit Capsule 5,000 Unit PO WEEKLY Continue taking on your weekly schedule DATE: 04/18/17 TIME: 0900 NEXT DOSE DUE: DATE: 04/25/17 TIME: 0900 Activity: as tolerated Diet: Cardiac Consulting Physician: HAILE DONALD MD Consulting Speciality: Neurology Follow-up Plan F/u with PCP after discharge from [facility] unit. HAL KOHLER MD Jul 19, 2017 12:38
[2017-07-19 15:23] VITALS: BP 99/66
--- NOTE | 2017-07-20 06:05 | PN ---
DATE: 07/19/2017 SUBJECTIVE: The patient denies any new medical or neurological complaints. OBJECTIVE: GENERAL: Well-developed, well-nourished female, not in acute distress. VITAL SIGNS: Blood pressure is 130/57, respiratory rate 20, pulse is 62, temperature 98, oxygen saturation is 92% on room air. HEENT: Normocephalic, atraumatic, otherwise unremarkable. NECK: Supple. Negative for carotid bruit, lymphadenopathy or thyromegaly. LUNGS: Clear to A and P. CARDIOVASCULAR: Regular rhythm, normal S1, S2. ABDOMEN: Soft. Bowel sounds positive. EXTREMITIES: Negative for cyanosis, clubbing or pitting edema. NEUROLOGICAL EXAM: Mental Status: The patient is alert and oriented x 3. Speech is fluent. There is no language dysfunction. Memory, judgment, abstraction thinking are normal. The patient denies hallucination or delusion. Cranial nerves are intact. Motor Examination: No focal muscle bulk was seen. The tone is normal. The strength is 4/5 throughout. Sensory examination revealed normal pinprick, light touch, vibratory and position senses. Deep tendon reflexes are symmetric and hypoactive with absent Achilles responses. Gait: The stance is more steady and she uses a walker for ambulation. IMPRESSION: 1. Possible transient ischemic attack - presented with left side weakness - resolved. 2. Multiple medical problems include diabetes mellitus, hypertension, coronary artery disease, gout, and renal failure. RECOMMENDATION: 1. Continue with current management. 2. Physical therapy as tolerated. M Kelin DONALD MD DR: LOLITA/deepak JOB#: [id number] / [id number]
[2017-07-22] MEDS ORDERED: CHOLECALCIFEROL (VITAMIN D3) 1,000 UNIT TABLET PO SCH (09:00)
== END 2017-07-19 16:01 | disposition swing bed (61) | DRG 69 ==
LOC: ER 17:02 → 1 SOUTH 19:18 → OBSVTOIN 20:22
PROVIDERS: ADMIT Family Medicine; ATTEND Family Medicine
DX: G45.9 Transient cerebral ischemic attack, unspecified (principal); I95.9 Hypotension, unspecified; E11.22 Type 2 diabetes mellitus with diabetic chronic kidney disease; E11.51 Type 2 diabetes mellitus with diabetic peripheral angiopathy without gangrene; I13.0 Hypertensive heart and chronic kidney disease with heart failure and stage 1 through stage 4 chronic kidney disease, or unspecified chronic kidney disease; N18.4 Chronic kidney disease, stage 4 (severe); I27.20 Pulmonary hypertension, unspecified; G81.94 Hemiplegia, unspecified affecting left nondominant side; I50.32 Chronic diastolic (congestive) heart failure; D64.9 Anemia, unspecified; E86.0 Dehydration; I48.0 Paroxysmal atrial fibrillation; E78.00 Pure hypercholesterolemia, unspecified; E78.5 Hyperlipidemia, unspecified; G25.81 Restless legs syndrome; I25.10 Atherosclerotic heart disease of native coronary artery without angina pectoris; M19.90 Unspecified osteoarthritis, unspecified site; K21.9 Gastro-esophageal reflux disease without esophagitis; M10.9 Gout, unspecified; Z96.653 Presence of artificial knee joint, bilateral; Z96.642 Presence of left artificial hip joint; Z79.01 Long term (current) use of anticoagulants; Z79.4 Long term (current) use of insulin; Z79.899 Other long term (current) drug therapy; Z82.49 Family history of ischemic heart disease and other diseases of the circulatory system; Z86.718 Personal history of other venous thrombosis and embolism; Z86.73 Personal history of transient ischemic attack (TIA), and cerebral infarction without residual deficits; Z90.49 Acquired absence of other specified parts of digestive tract; Z91.81 History of falling; Z95.0 Presence of cardiac pacemaker; Z95.5 Presence of coronary angioplasty implant and graft; Z88.0 Allergy status to penicillin; Z88.7 Allergy status to serum and vaccine; Z88.8 Allergy status to other drugs, medicaments and biological substances; Z87.81 Personal history of (healed) traumatic fracture
CPT/HCPCS: 36415; 70450; 80048; 80053; 80061; 81001; 82947; 83605; 83735; 83880; 84484; 85025; 93005; 93880; G0379; J1815; J2405; J8597; 97110; 97112; 97530; J7030

== ENCOUNTER 2017-07-17 13:10 | Inpatient (IN) | payer MEDICARE, OTHER ==
[~2017-07-17] VITALS: Ht 162.6 cm; Wt 86.0 kg
[2017-07-19] MEDS ORDERED: ALPRAZolam 0.25 MG TABLET PO PRN (16:30)
[2017-07-19] MEDS ORDERED: NITROGLYCERIN SUBLINGUAL 0.4 MG BOTTLE OF 25. SL PRN (16:30)
[2017-07-19] MEDS ORDERED: IPRATRPIUM/ALBUTEROL 0.5/2.5MG 3 ML NEBU. NEB PRN (16:30)
[2017-07-19] MEDS ORDERED: MECLIZINE 12.5 MG TABLET. PO PRN (17:15)
[2017-07-19 19:54] VITALS: BP 122/55
[2017-07-19] MEDS: ATORVASTATIN CALCIUM 10 MG TABLET. PO SCH (22:47)
[2017-07-19] MEDS: traZODone 50 MG TABLET. PO SCH (22:47)
[2017-07-19] MEDS: APIXABAN 2.5 MG TABLET PO SCH (22:47)
[2017-07-19] MEDS: SENNOSIDES/DOCUSATE 8.6/50MG TABLET. PO SCH (22:47)
[2017-07-19] MEDS: rOPINIRole 0.25 MG TABLET. PO SCH (22:48)
[2017-07-19] MEDS: METOPROLOL TART IMMED RELEASE 25 MG TABLET PO SCH (22:48)
[2017-07-19] MEDS: ACETAMINOPHEN 325 MG TABLET PO PRN (22:51)
[2017-07-19] MEDS: INSULIN DETEMIR 300 UNITS/3 ML INSULN.PEN. SQ SCH (22:59)
[2017-07-20 05:34] VITALS: BP 130/61
[2017-07-20] MEDS: APIXABAN 2.5 MG TABLET PO SCH ×2 (08:23→21:11)
[2017-07-20] MEDS: PANTOPRAZOLE 40 MG TABLET. PO SCH (08:23)
[2017-07-20] MEDS: ALLOPURINOL 100 MG TABLET. PO SCH (08:24)
[2017-07-20] MEDS: METOPROLOL TART IMMED RELEASE 25 MG TABLET PO SCH ×2 (08:24→21:11)
[2017-07-20] MEDS: SENNOSIDES/DOCUSATE 8.6/50MG TABLET. PO SCH ×2 (08:24→21:12)
[2017-07-20] MEDS: MAGNESIUM OXIDE 400 MG TABLET PO SCH (08:24)
[2017-07-20] MEDS: GLIMEPIRIDE 2 MG TABLET PO SCH (08:24)
[2017-07-20] MEDS: LIDOCAINE (700MG/PATCH) PATCH. TD SCH (08:26)
[2017-07-20] MEDS: ACETAMINOPHEN 325 MG TABLET PO PRN (08:29)
[2017-07-20] MEDS: INSULIN DETEMIR 300 UNITS/3 ML INSULN.PEN. SQ SCH ×2 (08:32→21:25)
--- NOTE | 2017-07-20 17:57 | HP ---
ADMIT DATE: 07/20/2017 HISTORY OF PRESENT ILLNESS: The patient is an 87-year-old -[place] female patient, who was admitted on 07/16/2017 with a complaint of severe headache, which described as left-sided weakness and some difficulty ambulating. It started the day before admission, continued throughout the day; however, she did not seek any care at that time. She stated that she could not move her left side of the body for about 2 hours and drank some orange juice and said that made it better, but her blood sugars was not checked. The weakness and the headache has slowly gotten better. She describes the headache on the left side with no change in her vision. She had some left-sided weakness. She recently saw Dr. Dunn, who told her to take some nitroglycerin if she had chest pain. She was evaluated extensively at the Emergency Room and also by Dr. Reynoso and it was felt that she would benefit from further rehabilitation and was discharged to swing bed for further physical and occupational therapy. When I saw her today, she was sitting comfortably in her chair in no apparent distress. She stated that her headache is mostly on the left side and it is much better with the Lidoderm patch. She is also able to ambulate with a walker. Continued to have episodes of what she describes as spasm in her chest. PAST MEDICAL HISTORY: Significant for multiple episodes of acute on chronic congestive heart failure, status post left total hip arthroplasty in 04/2017, type 2 diabetes, chronic kidney disease stage 3, long-term use of anticoagulant, coronary artery disease, paroxysmal atrial fibrillation, status post pacemaker, anemia, hyperuricemia, history of stroke and hypertension. PAST SURGICAL HISTORY: Significant for appendectomy, cholecystectomy, left total hip arthroplasty, knee replacement and pacemaker placement. SOCIAL HISTORY: The patient is in the process of moving to another house with her son. She, herself has been doing some packing and lifting up some boxes and more activities than she usually does. ALLERGIES: She is allergic to INFLUENZA VIRUS, PENICILLIN, AMOXICILLIN, CEPHALEXIN, CLAVULANIC ACID and REGLAN. MEDICATIONS: She is currently on following medications: She is on acetaminophen 650 mg every 6 hours, allopurinol 100 mg once a day, alprazolam 0.25 mg 3 times a day as needed, amlodipine besylate 10 mg daily, apixaban 2.5 mg twice a day, atorvastatin calcium 10 mg at bedtime, cholecalciferol vitamin D3 5000 international units weekly, furosemide 40 mg daily, glimepiride 4 mg once a day, Levemir insulin 20 units subcutaneously twice a day, ipratropium bromide/albuterol inhaler 0.5-2.5 mg in 3 mL by nebulizer every 6 hours, Lidoderm patch 1 patch topically daily, magnesium oxide 400 mg daily, meclizine 25 mg 1 tablet p.o. t.i.d., metolazone 2.5 mg 3 times per week, nebivolol for Bystolic 5 mg at bedtime, nitroglycerin 0.4 mg sublingually every 5 minutes as needed, Protonix 40 mg once a day, allopurinol for Requip 0.25 mg at bedtime, Senna S one tablet twice a day, and trazodone 50 mg at bedtime. PHYSICAL EXAMINATION: GENERAL: On examining her, she looked well and was clearly in no apparent respiratory distress, slightly pale, but no jaundice, cyanosis, or thyromegaly. No jugular venous distension. No lower limb edema. VITAL SIGNS: Her heart rate was 57, blood pressure 130/61, temperature was 97.8, respiratory rate was 14 and oxygen saturation was 97%. The rest of clinical examination is unremarkable. Her blood sugar seems to be reasonably controlled. LABORATORY DATA: Her most recent white cell count was 7300, hemoglobin 10, hematocrit 30, MCV 85 and platelet count of 143,000. Her chemistry showed a serum sodium 138, potassium 4.5, chloride 104, bicarbonate 27, anion gap of 7, BUN 52, creatinine 2.4, estimated GFR was 93 mL per minute. Her glucose was 174 and calcium was 8.6. PLAN: My plan is obviously to continue with all her current medications. Continue with physical and occupational therapy. I will repeat her labs to make sure that her kidney function is stable and monitor her closely. JAMES MULTANI MD DR: ESTEPHANIA/deepak JOB#: [id number] / [id number]
[2017-07-20 20:00] VITALS: BP 152/85
[2017-07-20] MEDS: rOPINIRole 0.25 MG TABLET. PO SCH (21:10)
[2017-07-20] MEDS: ATORVASTATIN CALCIUM 10 MG TABLET. PO SCH (21:11)
[2017-07-20] MEDS: traZODone 50 MG TABLET. PO SCH (21:11)
[2017-07-20] MEDS: HYDROcodone/APAP 5/325MG 1 TAB TABLET PO PRN (21:31)
[2017-07-20] MEDS ORDERED: DEXTROSE 50% 25 GM / 50ML DISP.SYRIN. IV PRN (23:00)
[2017-07-21 07:21] LABS: HEMOGLOBIN 9.3 g/dL (12.0-15.5); RED BLOOD COUNT 3.28 x10^6/uL (3.50-5.40); RED CELL DISTRIBUTION WIDTH 15.5 % (11.5-14.5); WHITE BLOOD COUNT 5.9 x10^3/uL (4.0-11.0)
[2017-07-21] MEDS: INSULIN ASPART 300 UNITS/3 ML INSULN.PEN SQ SCH ×3 (07:30→16:30)
[2017-07-21 07:33] LABS: ALBUMIN 2.8 g/dL (3.4-5.0); ALBUMIN/GLOBULIN RATIO 0.8 (1.0-1.7); CALCIUM 8.9 mg/dL (8.5-10.1); GFR 28.5; POTASSIUM 4.2 mmol/L (3.5-5.1); TOTAL BILIRUBIN 0.1 mg/dL (0.2-1.0); TOTAL PROTEIN 6.1 g/dL (6.4-8.2)
[2017-07-21] MEDS: GLIMEPIRIDE 2 MG TABLET PO SCH (08:29)
[2017-07-21] MEDS: PANTOPRAZOLE 40 MG TABLET. PO SCH (08:29)
[2017-07-21] MEDS: ALLOPURINOL 100 MG TABLET. PO SCH (08:29)
[2017-07-21] MEDS: MAGNESIUM OXIDE 400 MG TABLET PO SCH (08:29)
[2017-07-21] MEDS: SENNOSIDES/DOCUSATE 8.6/50MG TABLET. PO SCH (08:29)
[2017-07-21] MEDS: APIXABAN 2.5 MG TABLET PO SCH (08:30)
[2017-07-21] MEDS: METOPROLOL TART IMMED RELEASE 25 MG TABLET PO SCH (08:30)
[2017-07-21] MEDS: INSULIN DETEMIR 300 UNITS/3 ML INSULN.PEN. SQ SCH (08:35)
[2017-07-21] MEDS: ACETAMINOPHEN 325 MG TABLET PO PRN ×2 (08:36→19:07)
[2017-07-21] MEDS: LIDOCAINE (700MG/PATCH) PATCH. TD SCH (08:41)
[2017-07-21 09:58] VITALS: BP 119/76
[2017-07-21] MEDS: HYDROcodone/APAP 5/325MG 1 TAB TABLET PO PRN (15:00)
[2017-07-22] MEDS ORDERED: CHOLECALCIFEROL (VITAMIN D3) 1,000 UNIT TABLET PO SCH (09:00)
== END 2017-07-21 19:15 | disposition short-term general hospital (02) | DRG 103 ==
LOC: 1 SOUTH 07-19 16:00 → LND 07-20 05:56
PROVIDERS: ADMIT Family Medicine; ATTEND Family Medicine
DX: R51 Headache (principal); E11.22 Type 2 diabetes mellitus with diabetic chronic kidney disease; I48.0 Paroxysmal atrial fibrillation; I13.0 Hypertensive heart and chronic kidney disease with heart failure and stage 1 through stage 4 chronic kidney disease, or unspecified chronic kidney disease; I50.9 Heart failure, unspecified; I25.10 Atherosclerotic heart disease of native coronary artery without angina pectoris; N18.3 Chronic kidney disease, stage 3 (moderate); Z96.642 Presence of left artificial hip joint; Z96.659 Presence of unspecified artificial knee joint; Z79.01 Long term (current) use of anticoagulants; Z86.73 Personal history of transient ischemic attack (TIA), and cerebral infarction without residual deficits; Z95.0 Presence of cardiac pacemaker; Z90.49 Acquired absence of other specified parts of digestive tract; Z88.1 Allergy status to other antibiotic agents; Z88.0 Allergy status to penicillin; Z88.8 Allergy status to other drugs, medicaments and biological substances
CPT/HCPCS: 36415; 80053; 82947; 85027; J1815; 97110; 97116; 97535

== ENCOUNTER 2017-08-12 13:58 | Inpatient (IN) | payer MEDICARE, OTHER ==
[~2017-08-12] VITALS: Ht 163.8 cm; Wt 82.6 kg
--- NOTE | 2017-08-12 14:25 | PHYS DOC ---
Past History Past Medical History: A-Fib, Diabetes, Heart Disease, Hip Fracture, Hypertension Past Surgical History: Appendectomy, Cholecystectomy, Hip Replacement, Knee Replacement, Pacemaker Alcohol Use: None Drug Use: None Adult General Chief Complaint Chief Complaint: DIZZY/LIGHT HEADED HPI HPI Patient is a 87 year old female who presents with complaint of dizziness and lightheadedness. Patient states her symptoms have been present over the past 2 days. Patient states her symptoms worsen when she tries to get up and ambulate. The patient states that she has also had feelings of nausea and abdominal distention. Patient states that she has had no vomiting. Patient states that she last had a bowel movement yesterday which she states happened after she drank a glass of prune juice. Patient's had no bowel movements today. Denies any known fevers. Patient has history of type 2 diabetes mellitus, congestive heart failure, and coronary artery disease. Patient follows with Dr. Dunn of cardiology and Dr. Medel for primary care. The patient states that she became dizzy and had a fall earlier today. The patient's son stated that the patient did not completely lose consciousness but had a "glazed over look in her eyes." Patient states that she is currently not having any pain in her abdomen. Patient states that she is having mild pain in her left wrist but is able to move it without difficulty. Review of Systems Review of Systems Constitutional: Denies fever or chills [] Eyes: Denies change in visual acuity, redness, or eye pain [] HENT: Denies nasal congestion or sore throat [] Respiratory: Denies cough or shortness of breath [] Cardiovascular: Lightheadedness, near syncope, denies chest pain[] GI: Nausea, abdominal distention, denies vomiting, bloody stools or diarrhea [] : Denies dysuria or hematuria [] Musculoskeletal: Chronic neck pain[] Integument: Denies rash or skin lesions [] Neurologic: Denies headache, focal weakness or sensory changes [] All other systems were reviewed and found to be within normal limits, except as documented in this note. Allergies Allergies Allergies Coded Allergies Type Severity Reaction Last Updated Verified Influenza Virus Vaccines Allergy Intermediate GENERALIZED BODY/JOINT ACHES 10/07 Yes Penicillins Allergy Intermediate NAUSEA/VOMITING 10/07/16 Yes amoxicillin Allergy Intermediate Nausea/Vomiting 10/07/16 Yes cephalexin Allergy Intermediate Nausea/Vomiting 10/07/16 Yes clavulanic acid Allergy Intermediate Nausea/Vomiting 10/07/16 Yes metoclopramide Allergy Intermediate NAUSEA/VOMITING 10/07/16 Yes Physical Exam Physical Exam Constitutional: Alert, afebrile, no acute distress. [] HENT: Normocephalic, atraumatic, bilateral external ears normal, oropharynx moist, no oral exudates, nose normal. [] Eyes: PERRLA, EOMI, conjunctiva normal, no discharge. [] Neck: Normal range of motion, no tenderness, supple, no stridor. [] Cardiovascular:Heart rate regular rhythm, no murmur [] Lungs & Thorax: Bilateral breath sounds clear to auscultation [] Abdomen: Bowel sounds normal, soft, no tenderness, no masses, no pulsatile masses. [] Skin: Warm, dry, no erythema, no rash. [] Back: No tenderness, no CVA tenderness. [] Extremities: No tenderness, no cyanosis, no clubbing, ROM intact, no edema. [] Neurologic: Alert and oriented X 3, normal motor function, normal sensory function, no focal deficits noted. [] Current Patient Data Vital Signs Vital Signs Date Time Temp Pulse Resp B/P (MAP) Pulse Ox O2 Delivery O2 Flow Rate FiO2 08/12/17 14:05 97.8 72 18 100 Room Air Lab Results Laboratory Tests Test 08/12/17 14:34 08/12/17 15:10 White Blood Count 7.1 x10^3/uL Red Blood Count 3.82 x10^6/uL Hemoglobin 10.6 g/dL Hematocrit 32.9 % Mean Corpuscular Volume 86 fL Mean Corpuscular Hemoglobin 28 pg Mean Corpuscular Hemoglobin Concent 32 g/dL Red Cell Distribution Width 16.0 % Platelet Count 177 x10^3/uL Neutrophils (%) (Auto) 61 % Lymphocytes (%) (Auto) 30 % Monocytes (%) (Auto) 7 % Eosinophils (%) (Auto) 2 % Basophils (%) (Auto) 1 % Neutrophils # (Auto) 4.3 x10^3uL Lymphocytes # (Auto) 2.1 x10^3/uL Monocytes # (Auto) 0.5 x10^3/uL Eosinophils # (Auto) 0.1 x10^3/uL Basophils # (Auto) 0.1 x10^3/uL Sodium Level 141 mmol/L Potassium Level 4.6 mmol/L Chloride Level 102 mmol/L Carbon Dioxide Level 31 mmol/L Anion Gap 8 Blood Urea Nitrogen 68 mg/dL Creatinine 2.5 mg/dL Estimated GFR (Cockcroft-Gault) 22.0 Glucose Level 108 mg/dL Calcium Level 9.6 mg/dL Magnesium Level 2.5 mg/dL Total Bilirubin 0.3 mg/dL Direct Bilirubin 0.1 mg/dL Aspartate Amino Transf (AST/SGOT) 14 U/L Alanine Aminotransferase (ALT/SGPT) 17 U/L Alkaline Phosphatase 56 U/L Troponin I Quantitative < 0.017 ng/mL Total Protein 7.3 g/dL Albumin 3.4 g/dL Lipase 86 U/L Urine Collection Type U cath Urine Color Yellow Urine Clarity Hazy Urine pH 5.0 Urine Specific Whitt <=1.005 Urine Protein Trace Urine Glucose (UA) Neg mg/dL Urine Ketones (Stick) Neg mg/dL Urine Blood Neg Urine Nitrite Neg Urine Bilirubin Neg Urine Urobilinogen Dipstick 0.2 mg/dL Urine Leukocyte Esterase Small Urine RBC 0 /HPF Urine WBC 1-4 /HPF Urine Squamous Epithelial Cells Occ /LPF Urine Transitional Epithelial Cells Occ /LPF Urine Bacteria Few /HPF Urine Mucus Slight /LPF EKG EKG Interpreted by me: Heart rate 67, ventricularly paced rhythm, no acute ST elevations[] Radiology/Procedures Radiology/[place] [address] IMAGING REPORT Signed PATIENT: CARINA TREADWELL ACCOUNT: [id number] : 1930 LOCATION: ER AGE: 87 SEX: F EXAM STATUS: REG ER ORD. PHYSICIAN: VIOLET GUEVARA MD REASON: lightheadedness, dizziness PROCEDURE: PORTABLE CHEST 1V Indication: Dizziness. Technique: Portable AP upright chest x-ray Comparison: Previous study from 07/03/2017 Findings: Stable position of triple lead cardiac pacer. Heart is top normal in size. Lungs are clear. No pneumothorax or pleural effusion. Visualized bony thorax within normal limits. 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 Impression: No acute cardiopulmonary process. DICTATED AND SIGNED BY: ASHLEY HADLEY DO DATE: 08/12/17 1444 CC: VIOLET GUEVARA MD; PATRICIA MEDEL MD ~ [] Course & Med Decision Making Course & Med Decision Making Pertinent Labs and Imaging studies reviewed. (See chart for details) Patient remained stable during her emergency department stay. Given the patient' s symptoms and past medical history however, I feel the patient would benefit from admission to the hospital for further evaluation of her near syncope episodes. I do believe the patient would benefit from IV fluids, however given patient's history of CHF, this will need to be given in a slow manner to prevent fluid overload. I spoke with Dr. Blair who stated the patient can be admitted under inpatient status. Dragon Disclaimer Dragon Disclaimer This electronic medical record was generated, in whole or in part, using a voice recognition dictation system. Departure Departure: Impression: Primary Impression: Near syncope Additional Impressions: Congestive heart failure Ixhkd-sy-gecedfn kidney injury Disposition: ADMITTED INPATIENT Admitting Physician: Veronica Blair Condition: STABLE Referrals: PATRICIA MEDEL MD (PCP) Problem Qualifiers Additional Impressions: Congestive heart failure Congestive heart failure type: unspecified Congestive heart failure chronicity: chronic Qualified Codes: I50.9 - Heart failure, unspecified [id number] kidney injury Acute renal failure type: unspecified Chronic kidney disease stage: stage 4 (severe) Qualified Codes: N17.9 - Acute kidney failure, unspecified; N18.4 - Chronic kidney disease, stage 4 (severe) VIOLET GUEVARA MD Aug 12, 2017 14:25
--- NOTE | 2017-08-12 14:47 | RAD ---
Indication: Dizziness. Technique: Portable AP upright chest x-ray Comparison: Previous study from 07/03/2017 Findings: Stable position of triple lead cardiac pacer. Heart is top normal in size. Lungs are clear. No pneumothorax or pleural effusion. Visualized bony thorax within normal limits. 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 Impression: No acute cardiopulmonary process.
[2017-08-12 14:50] LABS: BASO # 0.1 x10^3/uL (0.0-0.2); BASO % 1 % (0-3); EOS # 0.1 x10^3/uL (0.0-0.7); EOS % 2 % (0-3); HEMATOCRIT 32.9 % (36.0-47.0); HEMOGLOBIN 10.6 g/dL (12.0-15.5); LYMPH # 2.1 x10^3/uL (1.0-4.8); LYMPH % 30 % (24-48); MEAN CORPUSCULAR HEMOGLOBIN 28 pg (25-35); MEAN CORPUSCULAR HGB CONC 32 g/dL (31-37); MEAN CORPUSCULAR VOLUME 86 fL (79-100); MONO # 0.5 x10^3/uL (0.0-1.1); MONO % 7 % (0-9); NEUT # 4.3 x10^3uL (1.8-7.7); NEUT % 61 % (31-73); PLATELET COUNT 177 x10^3/uL (140-400); RED BLOOD COUNT 3.82 x10^6/uL (3.50-5.40); WHITE BLOOD COUNT 7.1 x10^3/uL (4.0-11.0)
[2017-08-12 15:05] LABS: ALBUMIN 3.4 g/dL (3.4-5.0); CALCIUM 9.6 mg/dL (8.5-10.1); CREATININE 2.5 mg/dL (0.6-1.0); DIRECT BILIRUBIN 0.1 mg/dL (0.0-0.2); MAGNESIUM 2.5 mg/dL (1.8-2.4); POTASSIUM 4.6 mmol/L (3.5-5.1); TOTAL BILIRUBIN 0.3 mg/dL (0.2-1.0); TOTAL PROTEIN 7.3 g/dL (6.4-8.2)
[2017-08-12 15:39] LABS: BACTERIA,URINE FEW /HPF (0-FEW); BILIRUBIN,URINE NEG (NEG); CLARITY,URINE HAZY; COLOR,URINE YELLOW; GLUCOSE,URINE NEG (NEG); NITRITE,URINE NEG (NEG); RBC,URINE 0 /HPF (0-2); SQUAMOUS EPITHELIAL CELL,UR OCC /LPF; UROBILINOGEN,URINE 0.2 mg/dL (0.2 mg/dL)
[2017-08-12] MEDS ORDERED: ACETAMINOPHEN 325 MG TABLET PO PRN (16:15)
[2017-08-12] MEDS ORDERED: ONDANSETRON PF 4 MG/2 ML VIAL. IV PRN (16:15)
[2017-08-12] MEDS ORDERED: IV NORMAL SALINE 1,000ML 1,000 ML IV ONE (16:30)
[2017-08-12 16:51] VITALS: BP 121/69
--- NOTE | 2017-08-12 17:18 | EKG ---
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
[2017-08-12 17:30] VITALS: BP 121/69
[2017-08-12] MEDS ORDERED: IPRATRPIUM/ALBUTEROL 0.5/2.5MG 3 ML NEBU. NEB PRN (18:30)
[2017-08-12] MEDS ORDERED: NITROGLYCERIN SUBLINGUAL 0.4 MG BOTTLE OF 25. SL PRN (18:30)
[2017-08-12] MEDS ORDERED: ALPRAZolam 0.25 MG TABLET PO PRN (18:30)
[2017-08-12] MEDS ORDERED: MECLIZINE 12.5 MG TABLET. PO PRN (18:45)
[2017-08-12 20:50] VITALS: BP 115/62
[2017-08-12] MEDS ORDERED: METOPROLOL TART IMMED RELEASE 25 MG TABLET PO SCH (21:00)
[2017-08-12] MEDS: METOPROLOL TART IMMED RELEASE 25 MG TABLET PO SCH (21:24)
[2017-08-12] MEDS: rOPINIRole 0.25 MG TABLET. PO SCH (21:24)
[2017-08-12] MEDS: traZODone 50 MG TABLET. PO SCH (21:25)
[2017-08-12] MEDS: SENNOSIDES/DOCUSATE 8.6/50MG TABLET. PO SCH (21:25)
[2017-08-12] MEDS: ATORVASTATIN CALCIUM 10 MG TABLET. PO SCH (21:25)
[2017-08-12] MEDS: APIXABAN 2.5 MG TABLET PO SCH (21:25)
[2017-08-12] MEDS: INSULIN DETEMIR 300 UNITS/3 ML INSULN.PEN. SQ SCH (21:32)
[2017-08-12 22:41] VITALS: BP 101/52
[2017-08-13] VITALS (7 sets, daily range): BP systolic 114–140; BP diastolic 55–104
[2017-08-13 06:39] LABS: BASO % 1 % (0-3); EOS # 0.1 x10^3/uL (0.0-0.7); EOS % 2 % (0-3); HEMATOCRIT 31.7 % (36.0-47.0); HEMOGLOBIN 10.5 g/dL (12.0-15.5); LYMPH # 2.6 x10^3/uL (1.0-4.8); LYMPH % 35 % (24-48); MEAN CORPUSCULAR HEMOGLOBIN 28 pg (25-35); MEAN CORPUSCULAR HGB CONC 33 g/dL (31-37); MEAN CORPUSCULAR VOLUME 86 fL (79-100); MONO # 0.5 x10^3/uL (0.0-1.1); MONO % 7 % (0-9); NEUT # 4.1 x10^3uL (1.8-7.7); NEUT % 56 % (31-73); PLATELET COUNT 166 x10^3/uL (140-400); RED BLOOD COUNT 3.71 x10^6/uL (3.50-5.40); RED CELL DISTRIBUTION WIDTH 15.8 % (11.5-14.5); WHITE BLOOD COUNT 7.3 x10^3/uL (4.0-11.0)
[2017-08-13 06:41] LABS: CALCIUM 8.9 mg/dL (8.5-10.1); CREATININE 2.5 mg/dL (0.6-1.0)
[2017-08-13] MEDS: PANTOPRAZOLE 40 MG TABLET. PO SCH (07:38)
[2017-08-13] MEDS: ACETAMINOPHEN 325 MG TABLET PO PRN ×2 (07:43→21:29)
[2017-08-13] MEDS: GLIMEPIRIDE 2 MG TABLET PO SCH (08:56)
[2017-08-13] MEDS: APIXABAN 2.5 MG TABLET PO SCH ×2 (08:57→21:13)
[2017-08-13] MEDS: MAGNESIUM OXIDE 400 MG TABLET PO SCH (08:59)
[2017-08-13] MEDS: SENNOSIDES/DOCUSATE 8.6/50MG TABLET. PO SCH ×2 (08:59→21:13)
[2017-08-13] MEDS: METOPROLOL TART IMMED RELEASE 25 MG TABLET PO SCH ×2 (08:59→21:13)
[2017-08-13] MEDS: LIDOCAINE (700MG/PATCH) PATCH. TD SCH (09:00)
[2017-08-13] MEDS: ALLOPURINOL 100 MG TABLET. PO SCH (09:00)
[2017-08-13] MEDS ORDERED: CHOLECALCIFEROL (VITAMIN D3) 1,000 UNIT TABLET PO SCH (09:00)
[2017-08-13] MEDS: INSULIN DETEMIR 300 UNITS/3 ML INSULN.PEN. SQ SCH ×2 (09:04→21:16)
[2017-08-13] MEDS: MECLIZINE 12.5 MG TABLET. PO SCH ×3 (10:26→21:13)
--- NOTE | 2017-08-13 10:47 | PDOC1 ---
History and Physicial REASON FOR ADMISSION: Stroke-like symptoms, headache. HISTORY OF PRESENT ILLNESS: This is an 87-year-old female who has multiple medical problems who presented to the Emergency Room complaining of dizziness and a near syncopal episode. She does have a problem with recurrent vertigo. She got up from a sitting position and felt like she was going to pass out. Her daughter caught her before she fell. She did not fall or hit her head. 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 PAST SURGICAL HISTORY: Appendectomy, cholecystectomy, left total hip arthroplasty, knee replacement, pacemaker. SOCIAL HISTORY: The patient is in the process of moving to another house with her son. This has caused quite a deal of stress for her. She has been doing some packing and lifting up some boxes, not heavy boxes, but has been doing some lifting and more activity than she used to doing. ALLERGIES: INFLUENZA VIRUS, PENICILLIN, AMOXICILLIN, CEPHALEXIN, CLAVULANIC ACID AND REGLAN. MEDICATIONS: Unchanged since her previous admission. REVIEW OF SYSTEMS: Positive for some some recurrent dizziness, Positive for headache. positive for feeling of conspation. No urinary symptoms Physical Exam: Vitals reviewed. Low supine bp, orthostatics negative Heent : Eyes clear, no photophobia, tongue moist, poterior neg cervical vertebrae on the left tender at C-5-6 level. Lungs clear to auscultation CVRRR with 2/6 systolic murmur Abdomen mildly protuberant, bsPositive, non tender Extremeties without edema. Neurological:Cn's intact, did not precitate vertigo at the etime of exam Labs reviewed and compared to old labs-worsening BUN and Creatinine Assessment: Vertigo with near syncope Worsening CKD-secondary to diuretics? Frail elderly Diabetes type two Carotid artery disease [facility] use of anticoagulants Cervicalgia-had recent injection Plan: Neurology and cardiology consult. Hold diuretic for today. Treat headache. PT and OT. Monitor kidney function. Problems: WARD ALCANTAR DO Aug 13, 2017 10:47
--- NOTE | 2017-08-13 10:50 | PDOC1 ---
History and Physicial Blank History and Physical Patient Name: Esha Noriega Unit Number: [id number] Date of : 1930 Patient Status: Admitted Inpatient Attending Doctor: Ward Blair DO History and Physical History and Physicial REASON FOR ADMISSION: Stroke-like symptoms, headache. HISTORY OF PRESENT ILLNESS: This is an 87-year-old female who has multiple medical problems who presented to the Emergency Room complaining of dizziness and a near syncopal episode. She does have a problem with recurrent vertigo. She got up from a sitting position and felt like she was going to pass out. Her daughter caught her before she fell. She did not fall or hit her head. 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 PAST SURGICAL HISTORY: Appendectomy, cholecystectomy, left total hip arthroplasty, knee replacement, pacemaker. SOCIAL HISTORY: The patient is in the process of moving to another house with her son. This has caused quite a deal of stress for her. She has been doing some packing and lifting up some boxes, not heavy boxes, but has been doing some lifting and more activity than she used to doing. ALLERGIES: INFLUENZA VIRUS, PENICILLIN, AMOXICILLIN, CEPHALEXIN, CLAVULANIC ACID AND REGLAN. MEDICATIONS: Unchanged since her previous admission. REVIEW OF SYSTEMS: Positive for some some recurrent dizziness, Positive for headache. positive for feeling of conspation. No urinary symptoms Physical Exam: Vitals reviewed. Low supine bp, orthostatics negative Heent : Eyes clear, no photophobia, tongue moist, poterior neg cervical vertebrae on the left tender at C-5-6 level. Lungs clear to auscultation CVRRR with 2/6 systolic murmur Abdomen mildly protuberant, bsPositive, non tender Extremeties without edema. Neurological:Cn's intact, did not precitate vertigo at the etime of exam Labs reviewed and compared to old labs-worsening BUN and Creatinine Assessment: Vertigo with near syncope Worsening CKD-secondary to diuretics? Frail elderly Diabetes type two Carotid artery disease [employer] use of anticoagulants Cervicalgia-had recent injection Plan: Neurology and cardiology consult. Hold diuretic for today. Treat headache. PT and OT. Monitor kidney function. Problems: WARD BLAIR DO Aug 13, 2017 10:47 Problems: WARD BLAIR DO Aug 13, 2017 10:50
--- NOTE | 2017-08-13 14:48 | PDOC2 ---
SARA CHAIREZ PEDIATRIC PSYCHIATRIST 08/13/17 1448: CONSULT Date of Admission DATE: 08/13/17 TIME: 14:40 Reason for Consult: Near syncope Problem List Problems Medical Problems: (1) [id number] kidney injury Status: Acute (2) Congestive heart failure Status: Acute (3) Near syncope Status: Acute History of Present Illness HISTORY OF PRESENT ILLNESS: The patient is a pleasant 87-year-old female who presented with chief complaint of near syncope and weakness. She has a past medical history of chronic diastolic congestive heart failure, coronary artery disease, hypertension, paroxysmal atrial fibrillation and hyperlipidemia. She follows with Dr Dunn as her primary aids nurse. The last 3 days she says she has not been feeling well and has had multiple abdominal concerns. Last night the middle the night she got up to go to the bathroom and she kind of felt that she was more lightheaded and used her cane to get back and forth. This morning when she would stand up her legs got weak and the she went down. She states that she never fully lost consciousness and her daughter was there to prevent her from hitting her head. She was out of it for a few minutes but when she came back around she had not lost continence and was not confused. She just felt extremely weak and dizzy. After a few minutes she started to notice that her headache had returned so her son brought her into the emergency room.She denies any chest discomfort, palpitations, Lower extremity edema, PND or orthopnea. In late July she went to see the pain clinic at [place] and they did an injection in her spine area which helped significantly with her dizziness and headache. PAST MEDICAL HISTORY: 1. Coronary artery disease with recent unstable angina. 2. Essential hypertension. 3. Hypercholesterolemia. 4. Paroxysmal atrial fibrillation. 5. Chronic diastolic congestive heart failure. 6. Pulmonary hypertension, mild. 7. Chronic anemia. 8. Arthritis. 9. Previous history of deep venous thrombosis. 10. Type 2 diabetes mellitus. 11. Gastroesophageal reflux disease. 12. Bilateral knee replacements. 13. Permanent pacemaker implantation. 14. History of peripheral arterial disease. 15. History of a stroke with no residual deficits. 16. Sick sinus syndrome. PAST SURGICAL HISTORY: 1. Status post permanent pacemaker implantation. 2. Status post knee replacements. FAMILY HISTORY: She does not know of any family history of premature coronary artery disease. SOCIAL HISTORY: She lives at home with her son. She does not smoke or drink alcohol. REVIEW OF SYSTEMS: Review of 10 organ systems is as per the history of present illness, otherwise negative. ALLERGIES: INCLUDE PENICILLIN, AMOXICILLIN, CEPHALEXIN, AUGMENTIN, REGLAN, AND FLU VACCINES. PHYSICAL EXAMINATION: GENERAL: The patient is awake and alert. She is in no acute distress. Sheappears well nourished and appears her stated age. HEAD AND NECK: The patient is normocephalic and atraumatic. Carotid pulsations are 2/2 bilaterally without bruits. Jugular venous pressure does not appearelevated. No thyromegaly appreciated. EYES: Conjunctivae are clear. Extraocular movements are intact. There is no xanthelasma. LUNGS: There is good respiratory effort with symmetrical expansion bilaterally. Lungs are clear to auscultation bilaterally. CARDIOVASCULAR: Regular rate and rhythm with normal S1 and S2. No rubs or gallops appreciated. Point of maximal impulse does not appear displaced. ABDOMEN: There are normal bowel sounds and the abdomen is soft and nontender. LOWER EXTREMITIES: There is trace pretibial edema bilaterally with compression stockings in place. The posterior tibial pulses are palpable bilaterally. SKIN: There is normal skin turgor. MUSCULOSKELETAL: I do not appreciate kyphosis or scoliosis. NEUROLOGIC: The patient is alert and oriented x 3. Cranial nerves 3 through 12 appear grossly intact. The patient has good motor tone and strength in the upper and lower extremities bilaterally. PSYCHOLOGICAL: The patient is pleasant and has normal affect. IMPRESSION: Near syncope-she does not appear to be orthostatic however her creatinine is significantly increasing from March of 2017 at 1.8 up to 2.5 on admission. Her Lasix and metolazone were held today. We will continue repeat her labs in the morning and plan to start her Lasix if her creatinine is more acceptable and we will just stop the metolazone.Today when she was ambulating she had an episode of dizziness and her pacemaker was functioning appropriately And she remained hemodynamically stable. Paroxysmal atrial fibrillation - Continue Eliquis for anticoagulation and metoprolol for rhythm/rate maintenance. Congestive heart failure, chronic, with preserved ejection fraction. At this point she is euvolemic will plan to hold Lasix and Metolazone Coronary artery disease. She is not presently having angina. She had a recent catheterization that did not show any coronary disease that required revascularization. Hypercholesterolemia. The patient should be continued on her atorvastatin. Sick sinus syndrome. The patient's pacemaker appears to be functioning normally. She can continue with routine pacemaker checks through her regular aids nurse. Today when she was ambulating she had an episode of dizziness and her pacemaker was functioning appropriately. Thank you Dr. Blair for the courtesy of this consultation. We will be happy to follow along with you in consultation. As above, once the patient is discharged to home she can follow up with her regular aids nurse after discharge. Current Medications Current Medications Ondansetron HCl (Zofran) 4 mg PRN Q4HRS PRN IV NAUSEA/VOMITING; Start 08/12/17 at 16:15; Stop 08/13/17 at 16:14 Fentanyl Citrate (Fentanyl 2ml Vial) 50 mcg PRN Q2HR PRN IV PAIN; Start at 16:15; Stop 08/13/17 at 16:14 Acetaminophen (Tylenol) 650 mg PRN Q4HRS PRN PO FEVER; Start 08/12/17 at 16:15 ; Stop 08/12/17 at 18:45; Status DC Sodium Chloride 1,000 ml @ 50 mls/hr 1X ONCE IV Last administered on at 17:34; Start 08/12/17 at 16:30; Stop 08/13/17 at 12:29; Status DC Acetaminophen (Tylenol) 650 mg PRN Q6HRS PRN PO PAIN Last administered on at 07:43; Start 08/12/17 at 18:30 Allopurinol (Zyloprim) 100 mg DAILY PO Last administered on 08/13/17at 09:00; Start 08/13/17 at 09:00 Alprazolam (Xanax) 0.25 mg PRN TID PRN PO ANXIETY / AGITATION; Start 08/12/17 at 18:30 Apixaban (Eliquis) 2.5 mg BID PO Last administered on 08/13/17at 08:57; Start at 21:00 Atorvastatin Calcium (Lipitor) 10 mg HS PO Last administered on 08/12/17at 21:25 ; Start 08/12/17 at 21:00 Albuterol/ Ipratropium (Duoneb) 3 ml PRN Q6HRS PRN NEB SHORTNESS OF BREATH; Start 08/12/17 at 18:30 Lidocaine (Lidoderm) 1 patch DAILY TD Last administered on 08/13/17at 09:00; Start 08/13/17 at 09:00 Magnesium Oxide (Magnesium Oxide) 400 mg DAILY PO Last administered on at 08:59; Start 08/13/17 at 09:00 Nitroglycerin (Nitrostat) 0.4 mg PRN Q5MIN PRN SL CHEST PAIN; Start 08/12/17 at 18:30 Metoprolol Tartrate (Lopressor) 25 mg BID PO ; Start 08/12/17 at 21:00; Stop 05/20 at 21:00; Status DC Ropinirole HCl (Requip) 0.25 mg HS PO Last administered on 08/12/17at 21:24; Start 08/12/17 at 21:00 Senna/Docusate Sodium (Senna Plus) 1 tab BID PO Last administered on 08/13/17at 08:59; Start 08/12/17 at 21:00 Trazodone HCl (Desyrel) 50 mg HS PO Last administered on 08/12/17at 21:25; Start 08/12/17 at 21:00 Vitamin D (Vitamin D3) 5,000 unit WEEKLY PO Last administered on 08/13/17at 09: 10; Start 08/13/17 at 09:00 Glimepiride (Amaryl) 4 mg DAILY PO Last administered on 08/13/17at 08:56; Start 08/13/17 at 09:00 Insulin Detemir (Levemir) 20 units BID SQ Last administered on 08/13/17at 09:04 ; Start 08/12/17 at 21:00; Stop 08/13/17 at 14:28; Status DC Meclizine HCl (Antivert) 25 mg PRN TID PRN PO DIZZINESS; Start 08/12/17 at 18: 45; Stop 08/13/17 at 09:45; Status DC Metoprolol Tartrate (Lopressor) 25 mg BID PO Last administered on 08/13/17at 08: 59; Start 08/12/17 at 21:00 Pantoprazole Sodium (Protonix) 40 mg DAILYAC PO Last administered on 08/13/17at 07:38; Start 08/13/17 at 07:30 Meclizine HCl (Antivert) 25 mg TID PO Last administered on 08/13/17at 10:26; Start 08/13/17 at 10:00 Insulin Detemir (Levemir) 20 units BID SQ ; Start 08/13/17 at 14:28 Active Scripts Active Trazodone Hcl 50 Mg Tablet 50 Mg PO HS 90 Days Requip (Ropinirole Hcl) 0.25 Mg Tablet 0.25 Mg PO HS 90 Days Pantoprazole Sodium 40 Mg Tablet.dr 40 Mg PO DAILYAC 90 Days Lidocaine 1 Each Adh..patch 1 Patch TD DAILY 60 Days Metolazone 2.5 Mg Tablet 2.5 Mg PO 3X/WEEK 90 Days Allopurinol 100 Mg Tablet 1 Tab PO DAILY Reported Meclizine Hcl 25 Mg Tablet 1 Tab PO PRN TID NEXT DOSE DUE: DATE: TODAY TIME: IF NEEDED Duoneb 0.5-3(2.5) Mg/3 Ml (Albuterol/Ipratropium) 3 Ml Ampul.neb 3 Ml NEB PRN Q6HRS PRN LAST DOSE GIVEN: DATE: TODAY TIME: AM NEXT DOSE DUE: DATE: TODAY TIME: AFTERNOON Atorvastatin Calcium 10 Mg Tablet 1 Tab PO HS LAST DOSE GIVEN: DATE: YESTER TIME: AT BEDTIME NEXT DOSE DUE: DATE: TODAY TIME: AT BEDTIME Tylenol (Acetaminophen) 325 Mg Tablet 2 Tab PO PRN Q6HRS PRN NEXT DOSE DUE: DATE: TODAY TIME: IF NEEDED Senokot-S Tablet (Sennosides/Docusate Sodium) 1 Each Tablet 1 Tab PO BID LAST DOSE GIVEN: DATE: TODAY TIME: AM NEXT DOSE DUE: DATE: TODAY TIME: PM Bystolic (Nebivolol Hcl) 5 Mg Tablet 1 Tab PO HS LAST DOSE GIVEN: DATE: YESAY TIME: AT BEDTIME NEXT DOSE DUE: DATE: TODAY TIME: AT BEDTIME Magnesium Oxide 400 Mg Tablet 1 Tab PO DAILY LAST DOSE GIVEN: DATE: TODAY TIME: AM NEXT DOSE DUE: DATE: TOMORROW TIME: AM Glimepiride 4 Mg Tablet 1 Tab PO DAILY LAST DOSE GIVEN: DATE: TODAY TIME: AM NEXT DOSE DUE: DATE: TOMORROW TIME: AM NITROGLYCERIN SubLingual (Nitroglycerin) 0.4 Mg Tab.subl 0.4 Mg SL PRN Q5MIN PRN NEXT DOSE DUE: DATE: TODAY TIME: IF NEEDED NEXT DOSE DUE: DATE: as needed for chest pain TIME: Xanax (Alprazolam) 0.25 Mg Tablet 0.25 Mg PO PRN TID PRN NEXT DOSE DUE: DATE: TODAY TIME: IF NEEDED NEXT DOSE DUE: DATE: 01/02/17 TIME: 0900 Levemir (Insulin Detemir) 100 Unit/1 Ml Vial 20 Unit SQ BID LAST DOSE GIVEN: DATE: YESTERDAY TIME: AT BEDTIME NEXT DOSE DUE: DATE: TODAY TIME: AT BEDTIME Eliquis (Apixaban) 2.5 Mg Tablet 2.5 Mg PO BID LAST DOSE GIVEN: DATE: TODAY TIME: AM NEXT DOSE DUE: DATE: TODAY TIME: PM Vitamin D (Cholecalciferol (Vitamin D3)) 2,000 Unit Capsule 5,000 Unit PO WEEKLY Continue taking on your weekly schedule DATE: 04/18/17 TIME: 0900 NEXT DOSE DUE: DATE: 04/25/17 TIME: 0900 Allergies: Coded Allergies: Influenza Virus Vaccines (Verified Allergy, Intermediate, GENERALIZED BODY /JOINT ACHES, 10/07/16) Penicillins (Verified Allergy, Intermediate, NAUSEA/VOMITING, 10/07/16) amoxicillin (Verified Allergy, Intermediate, Nausea/Vomiting, 10/07/16) cephalexin (Verified Allergy, Intermediate, Nausea/Vomiting, 10/07/16) clavulanic acid (Verified Allergy, Intermediate, Nausea/Vomiting, 10/07/16) metoclopramide (Verified Allergy, Intermediate, NAUSEA/VOMITING, 10/07/16) VITALS Vital Signs Date Time Temp Pulse Resp B/P (MAP) Pulse Ox O2 Delivery O2 Flow Rate FiO2 08/13/17 14:08 98.4 66 18 115/59 (77) 97 Room Air Labs Laboratory Tests Test 08/12/17 14:34 08/12/17 15:10 08/12/17 19:09 08/12/17 21:22 White Blood Count 7.1 x10^3/uL (4.0-11.0) Red Blood Count 3.82 x10^6/uL (3.50-5.40) Hemoglobin 10.6 g/dL (12.0-15.5) Hematocrit 32.9 % (36.0-47.0) Mean Corpuscular Volume 86 fL (79-100) Mean Corpuscular Hemoglobin 28 pg (25-35) Mean Corpuscular Hemoglobin Concent 32 g/dL (31-37) Red Cell Distribution Width 16.0 % (11.5-14.5) Platelet Count 177 x10^3/uL (140-400) Neutrophils (%) (Auto) 61 % (31-73) Lymphocytes (%) (Auto) 30 % (24-48) Monocytes (%) (Auto) 7 % (0-9) Eosinophils (%) (Auto) 2 % (0-3) Basophils (%) (Auto) 1 % (0-3) Neutrophils # (Auto) 4.3 x10^3uL (1.8-7.7) Lymphocytes # (Auto) 2.1 x10^3/uL (1.0-4.8) Monocytes # (Auto) 0.5 x10^3/uL (0.0-1.1) Eosinophils # (Auto) 0.1 x10^3/uL (0.0-0.7) Basophils # (Auto) 0.1 x10^3/uL (0.0-0.2) Sodium Level 141 mmol/L (136-145) Potassium Level 4.6 mmol/L (3.5-5.1) Chloride Level 102 mmol/L (98-107) Carbon Dioxide Level 31 mmol/L (21-32) Anion Gap 8 (6-14) Blood Urea Nitrogen 68 mg/dL (7-20) Creatinine 2.5 mg/dL (0.6-1.0) Estimated GFR (Cockcroft-Gault) 22.0 Glucose Level 108 mg/dL (70-99) Calcium Level 9.6 mg/dL (8.5-10.1) Magnesium Level 2.5 mg/dL (1.8-2.4) Total Bilirubin 0.3 mg/dL (0.2-1.0) Direct Bilirubin 0.1 mg/dL (0.0-0.2) Aspartate Amino Transf (AST/SGOT) 14 U/L (15-37) Alanine Aminotransferase (ALT/SGPT) 17 U/L (14-59) Alkaline Phosphatase 56 U/L (46-116) Troponin I Quantitative < 0.017 ng/mL (0-0.055) Total Protein 7.3 g/dL (6.4-8.2) Albumin 3.4 g/dL (3.4-5.0) Lipase 86 U/L (73-393) Urine Collection Type U cath Urine Color Yellow Urine Clarity Hazy Urine pH 5.0 Urine Specific [place] <=1.005 Urine Protein Trace (NEG-TRACE) Urine Glucose (UA) Neg mg/dL (NEG) Urine Ketones (Stick) Neg mg/dL (NEG) Urine Blood Neg (NEG) Urine Nitrite Neg (NEG) Urine Bilirubin Neg (NEG) Urine Urobilinogen Dipstick 0.2 mg/dL (0.2 mg/dL) Urine Leukocyte Esterase Small (NEG) Urine RBC 0 /HPF (0-2) Urine WBC 1-4 /HPF (0-4) Urine Squamous Epithelial Cells Occ /LPF Urine Transitional Epithelial Cells Occ /LPF Urine Bacteria Few /HPF (0-FEW) Urine Mucus Slight /LPF Glucose (Fingerstick) 166 mg/dL (70-99) 171 mg/dL (70-99) Test 08/13/17 06:11 08/13/17 07:26 08/13/17 11:25 White Blood Count 7.3 x10^3/uL (4.0-11.0) Red Blood Count 3.71 x10^6/uL (3.50-5.40) Hemoglobin 10.5 g/dL (12.0-15.5) Hematocrit 31.7 % (36.0-47.0) Mean Corpuscular Volume 86 fL (79-100) Mean Corpuscular Hemoglobin 28 pg (25-35) Mean Corpuscular Hemoglobin Concent 33 g/dL (31-37) Red Cell Distribution Width 15.8 % (11.5-14.5) Platelet Count 166 x10^3/uL (140-400) Neutrophils (%) (Auto) 56 % (31-73) Lymphocytes (%) (Auto) 35 % (24-48) Monocytes (%) (Auto) 7 % (0-9) Eosinophils (%) (Auto) 2 % (0-3) Basophils (%) (Auto) 1 % (0-3) Neutrophils # (Auto) 4.1 x10^3uL (1.8-7.7) Lymphocytes # (Auto) 2.6 x10^3/uL (1.0-4.8) Monocytes # (Auto) 0.5 x10^3/uL (0.0-1.1) Eosinophils # (Auto) 0.1 x10^3/uL (0.0-0.7) Basophils # (Auto) 0.0 x10^3/uL (0.0-0.2) Sodium Level 141 mmol/L (136-145) Potassium Level 4.0 mmol/L (3.5-5.1) Chloride Level 103 mmol/L (98-107) Carbon Dioxide Level 30 mmol/L (21-32) Anion Gap 8 (6-14) Blood Urea Nitrogen 67 mg/dL (7-20) Creatinine 2.5 mg/dL (0.6-1.0) Estimated GFR (Cockcroft-Gault) 22.0 Glucose Level 107 mg/dL (70-99) Calcium Level 8.9 mg/dL (8.5-10.1) Magnesium Level 2.4 mg/dL (1.8-2.4) Glucose (Fingerstick) 83 mg/dL (70-99) 273 mg/dL (70-99) CAROL ALLEN Jr, MD 08/14/17 0639: CONSULT Allergies: Coded Allergies: Influenza Virus Vaccines (Verified Allergy, Intermediate, GENERALIZED BODY /JOINT ACHES, 10/07/16) Penicillins (Verified Allergy, Intermediate, NAUSEA/VOMITING, 10/07/16) amoxicillin (Verified Allergy, Intermediate, Nausea/Vomiting, 10/07/16) cephalexin (Verified Allergy, Intermediate, Nausea/Vomiting, 10/07/16) clavulanic acid (Verified Allergy, Intermediate, Nausea/Vomiting, 10/07/16) metoclopramide (Verified Allergy, Intermediate, NAUSEA/VOMITING, 10/07/16) Assessment/Plan The patient was seen by Sara Chairez APRN and I have reviewed her findings and plan and agree with above. Due to staffing constraints, we did not have an attending available on this day to see the patient. Problems: SARA CHAIREZ APRN Aug 13, 2017 14:48 CAROL ALLEN Jr, MD Aug 14, 2017 06:39
[2017-08-13] MEDS: ATORVASTATIN CALCIUM 10 MG TABLET. PO SCH (21:13)
[2017-08-13] MEDS: rOPINIRole 0.25 MG TABLET. PO SCH (21:13)
[2017-08-13] MEDS: traZODone 50 MG TABLET. PO SCH (21:13)
[2017-08-14] VITALS (8 sets, daily range): BP systolic 84–134; BP diastolic 42–74
[2017-08-14 06:43] LABS: BASO % 1 % (0-3); EOS # 0.1 x10^3/uL (0.0-0.7); EOS % 2 % (0-3); HEMATOCRIT 30.4 % (36.0-47.0); LYMPH # 2.3 x10^3/uL (1.0-4.8); LYMPH % 36 % (24-48); MEAN CORPUSCULAR HEMOGLOBIN 28 pg (25-35); MEAN CORPUSCULAR HGB CONC 33 g/dL (31-37); MEAN CORPUSCULAR VOLUME 86 fL (79-100); MONO # 0.5 x10^3/uL (0.0-1.1); MONO % 7 % (0-9); NEUT # 3.4 x10^3uL (1.8-7.7); NEUT % 54 % (31-73); PLATELET COUNT 159 x10^3/uL (140-400); RED BLOOD COUNT 3.56 x10^6/uL (3.50-5.40); RED CELL DISTRIBUTION WIDTH 15.7 % (11.5-14.5); WHITE BLOOD COUNT 6.4 x10^3/uL (4.0-11.0)
[2017-08-14 07:05] LABS: ALBUMIN 3.1 g/dL (3.4-5.0); ALBUMIN/GLOBULIN RATIO 0.9 (1.0-1.7); CALCIUM 9.1 mg/dL (8.5-10.1); CREATININE 2.5 mg/dL (0.6-1.0); MAGNESIUM 2.6 mg/dL (1.8-2.4); POTASSIUM 4.1 mmol/L (3.5-5.1); TOTAL BILIRUBIN 0.2 mg/dL (0.2-1.0); TOTAL PROTEIN 6.5 g/dL (6.4-8.2)
[2017-08-14] MEDS: GLIMEPIRIDE 2 MG TABLET PO SCH (07:47)
[2017-08-14] MEDS: MECLIZINE 12.5 MG TABLET. PO SCH ×3 (07:47→20:49)
[2017-08-14] MEDS: PANTOPRAZOLE 40 MG TABLET. PO SCH (07:47)
[2017-08-14] MEDS: SENNOSIDES/DOCUSATE 8.6/50MG TABLET. PO SCH ×2 (07:47→20:49)
[2017-08-14] MEDS: METOPROLOL TART IMMED RELEASE 25 MG TABLET PO SCH ×2 (07:47→20:49)
[2017-08-14] MEDS: LIDOCAINE (700MG/PATCH) PATCH. TD SCH (07:47)
[2017-08-14] MEDS: MAGNESIUM OXIDE 400 MG TABLET PO SCH (07:47)
[2017-08-14] MEDS: FUROSEMIDE 40 MG TABLET PO SCH (07:47)
[2017-08-14] MEDS: APIXABAN 2.5 MG TABLET PO SCH ×2 (07:47→20:49)
[2017-08-14] MEDS: INSULIN DETEMIR 300 UNITS/3 ML INSULN.PEN. SQ SCH ×2 (07:48→21:07)
[2017-08-14] MEDS: ALLOPURINOL 100 MG TABLET. PO SCH (07:48)
--- NOTE | 2017-08-14 09:49 | PN ---
PROGRESS NOTES Diagnosis Problem Problems Medical Problems: (1) [id number] kidney injury Status: Acute (2) Congestive heart failure Status: Acute (3) Near syncope Status: Acute Assessment Lightheadedness. This has improved. We have stopped her metolazone. We have her back on her Lasix alone. I would not resume the metolazone. Coronary artery disease. She is not having any angina. She is not on aspirin because she is taking Eliquis for atrial fibrillation. We will continue beta- juarez and statin. Atrial fibrillation, paroxysmal. She seems to be remaining in a sinus or atrial paced rhythm. We will continue metoprolol in the event she has recurrent atrial fibrillation and Eliquis for stroke prevention. CHF, chronic, with preserved ejection fraction. She appears euvolemic at this point time. As above, we have stopped her metolazone. I recommend she continue on Lasix by itself. Hypercholesterolemia. Continue statin. Sick sinus syndrome. Pacemaker appears to be functioning normally. Disposition. She appears to have a new baseline creatinine at 2.5. I would consider keeping her in the hospital 1 more night to see how she will respond to resuming the Lasix. I suggested the patient follow up with her operations expert after discharge. 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 Subjective We are seeing her for lightheadedness. S: Her lightheadedness has improved. She denies chest pain, dyspnea, syncope, palpitations, or lower extremity edema. Objective Vital Signs Date Time Temp Pulse Resp B/P (MAP) Pulse Ox O2 Delivery O2 Flow Rate FiO2 08/14/17 07:47 66 121/63 08/14/17 05:19 98.6 17 97 Room Air Intake and Output 08/14/17 07:00 Intake Total 2420 ml Output Total 825 ml Balance 1595 ml Intake Oral 1420 ml IV Total 1000 ml Output Urine Total 825 ml # Voids 1 # Bowel Movements 1 Physical Exam General: Alert and oriented x3. She appears well nourished and appears her stated age. Head and neck: Jugular venous pressure is not elevated. Eyes: There are no xanthelasma. Lungs: Clear to auscultation bilaterally. Cardiovascular: Regular rate and rhythm with a normal S1 and S2. There is a 1/ 6 holosystolic murmur. No rubs or gallops appreciated. No peripheral edema. Abdomen: There are normal bowel sounds and the abdomen is soft. Neurologic: The patient is alert and oriented x3. Cranial nerves 3-12 appear grossly intact. She has good motor tone and strength in the upper and lower extremities bilaterally. Psychologic: The patient is pleasant and has a normal affect. Review of Relevant I have reviewed the following items alisha (where applicable) has been applied. Labs Laboratory Tests Test 08/12/17 14:34 08/12/17 15:10 08/12/17 18:16 08/12/17 19:09 White Blood Count 7.1 x10^3/uL (4.0-11.0) Red Blood Count 3.82 x10^6/uL (3.50-5.40) Hemoglobin 10.6 g/dL (12.0-15.5) Hematocrit 32.9 % (36.0-47.0) Mean Corpuscular Volume 86 fL (79-100) Mean Corpuscular Hemoglobin 28 pg (25-35) Mean Corpuscular Hemoglobin Concent 32 g/dL (31-37) Red Cell Distribution Width 16.0 % (11.5-14.5) Platelet Count 177 x10^3/uL (140-400) Neutrophils (%) (Auto) 61 % (31-73) Lymphocytes (%) (Auto) 30 % (24-48) Monocytes (%) (Auto) 7 % (0-9) Eosinophils (%) (Auto) 2 % (0-3) Basophils (%) (Auto) 1 % (0-3) Neutrophils # (Auto) 4.3 x10^3uL (1.8-7.7) Lymphocytes # (Auto) 2.1 x10^3/uL (1.0-4.8) Monocytes # (Auto) 0.5 x10^3/uL (0.0-1.1) Eosinophils # (Auto) 0.1 x10^3/uL (0.0-0.7) Basophils # (Auto) 0.1 x10^3/uL (0.0-0.2) Sodium Level 141 mmol/L (136-145) Potassium Level 4.6 mmol/L (3.5-5.1) Chloride Level 102 mmol/L (98-107) Carbon Dioxide Level 31 mmol/L (21-32) Anion Gap 8 (6-14) Blood Urea Nitrogen 68 mg/dL (7-20) Creatinine 2.5 mg/dL (0.6-1.0) Estimated GFR (Cockcroft-Gault) 22.0 Glucose Level 108 mg/dL (70-99) Calcium Level 9.6 mg/dL (8.5-10.1) Magnesium Level 2.5 mg/dL (1.8-2.4) Total Bilirubin 0.3 mg/dL (0.2-1.0) Direct Bilirubin 0.1 mg/dL (0.0-0.2) Aspartate Amino Transf (AST/SGOT) 14 U/L (15-37) Alanine Aminotransferase (ALT/SGPT) 17 U/L (14-59) Alkaline Phosphatase 56 U/L (46-116) Troponin I Quantitative < 0.017 ng/mL (0-0.055) Total Protein 7.3 g/dL (6.4-8.2) Albumin 3.4 g/dL (3.4-5.0) Lipase 86 U/L (73-393) Urine Collection Type U cath Urine Color Yellow Urine Clarity Hazy Urine pH 5.0 Urine Specific Bath <=1.005 Urine Protein Trace (NEG-TRACE) Urine Glucose (UA) Neg mg/dL (NEG) Urine Ketones (Stick) Neg mg/dL (NEG) Urine Blood Neg (NEG) Urine Nitrite Neg (NEG) Urine Bilirubin Neg (NEG) Urine Urobilinogen Dipstick 0.2 mg/dL (0.2 mg/dL) Urine Leukocyte Esterase Small (NEG) Urine RBC 0 /HPF (0-2) Urine WBC 1-4 /HPF (0-4) Urine Squamous Epithelial Cells Occ /LPF Urine Transitional Epithelial Cells Occ /LPF Urine Bacteria Few /HPF (0-FEW) Urine Mucus Slight /LPF Nasal Screen MRSA (PCR) Negative (Negative) Glucose (Fingerstick) 166 mg/dL (70-99) Test 08/12/17 21:22 08/13/17 06:11 08/13/17 07:26 08/13/17 11:25 Glucose (Fingerstick) 171 mg/dL (70-99) 83 mg/dL (70-99) 273 mg/dL (70-99) White Blood Count 7.3 x10^3/uL (4.0-11.0) Red Blood Count 3.71 x10^6/uL (3.50-5.40) Hemoglobin 10.5 g/dL (12.0-15.5) Hematocrit 31.7 % (36.0-47.0) Mean Corpuscular Volume 86 fL (79-100) Mean Corpuscular Hemoglobin 28 pg (25-35) Mean Corpuscular Hemoglobin Concent 33 g/dL (31-37) Red Cell Distribution Width 15.8 % (11.5-14.5) Platelet Count 166 x10^3/uL (140-400) Neutrophils (%) (Auto) 56 % (31-73) Lymphocytes (%) (Auto) 35 % (24-48) Monocytes (%) (Auto) 7 % (0-9) Eosinophils (%) (Auto) 2 % (0-3) Basophils (%) (Auto) 1 % (0-3) Neutrophils # (Auto) 4.1 x10^3uL (1.8-7.7) Lymphocytes # (Auto) 2.6 x10^3/uL (1.0-4.8) Monocytes # (Auto) 0.5 x10^3/uL (0.0-1.1) Eosinophils # (Auto) 0.1 x10^3/uL (0.0-0.7) Basophils # (Auto) 0.0 x10^3/uL (0.0-0.2) Sodium Level 141 mmol/L (136-145) Potassium Level 4.0 mmol/L (3.5-5.1) Chloride Level 103 mmol/L (98-107) Carbon Dioxide Level 30 mmol/L (21-32) Anion Gap 8 (6-14) Blood Urea Nitrogen 67 mg/dL (7-20) Creatinine 2.5 mg/dL (0.6-1.0) Estimated GFR (Cockcroft-Gault) 22.0 Glucose Level 107 mg/dL (70-99) Calcium Level 8.9 mg/dL (8.5-10.1) Magnesium Level 2.4 mg/dL (1.8-2.4) Test 08/13/17 16:29 08/13/17 19:33 08/14/17 05:50 08/14/17 07:19 Glucose (Fingerstick) 241 mg/dL (70-99) 263 mg/dL (70-99) 80 mg/dL (70-99) White Blood Count 6.4 x10^3/uL (4.0-11.0) Red Blood Count 3.56 x10^6/uL (3.50-5.40) Hemoglobin 10.0 g/dL (12.0-15.5) Hematocrit 30.4 % (36.0-47.0) Mean Corpuscular Volume 86 fL (79-100) Mean Corpuscular Hemoglobin 28 pg (25-35) Mean Corpuscular Hemoglobin Concent 33 g/dL (31-37) Red Cell Distribution Width 15.7 % (11.5-14.5) Platelet Count 159 x10^3/uL (140-400) Neutrophils (%) (Auto) 54 % (31-73) Lymphocytes (%) (Auto) 36 % (24-48) Monocytes (%) (Auto) 7 % (0-9) Eosinophils (%) (Auto) 2 % (0-3) Basophils (%) (Auto) 1 % (0-3) Neutrophils # (Auto) 3.4 x10^3uL (1.8-7.7) Lymphocytes # (Auto) 2.3 x10^3/uL (1.0-4.8) Monocytes # (Auto) 0.5 x10^3/uL (0.0-1.1) Eosinophils # (Auto) 0.1 x10^3/uL (0.0-0.7) Basophils # (Auto) 0.0 x10^3/uL (0.0-0.2) Sodium Level 141 mmol/L (136-145) Potassium Level 4.1 mmol/L (3.5-5.1) Chloride Level 104 mmol/L (98-107) Carbon Dioxide Level 31 mmol/L (21-32) Anion Gap 6 (6-14) Blood Urea Nitrogen 64 mg/dL (7-20) Creatinine 2.5 mg/dL (0.6-1.0) Estimated GFR (Cockcroft-Gault) 22.0 BUN/Creatinine Ratio 26 (6-20) Glucose Level 107 mg/dL (70-99) Calcium Level 9.1 mg/dL (8.5-10.1) Magnesium Level 2.6 mg/dL (1.8-2.4) Total Bilirubin 0.2 mg/dL (0.2-1.0) Aspartate Amino Transf (AST/SGOT) 14 U/L (15-37) Alanine Aminotransferase (ALT/SGPT) 14 U/L (14-59) Alkaline Phosphatase 47 U/L (46-116) Total Protein 6.5 g/dL (6.4-8.2) Albumin 3.1 g/dL (3.4-5.0) Albumin/Globulin Ratio 0.9 (1.0-1.7) Medications Current Medications Ondansetron HCl (Zofran) 4 mg PRN Q4HRS PRN IV NAUSEA/VOMITING; Start 08/12/17 at 16:15; Stop 08/13/17 at 16:14; Status DC Fentanyl Citrate (Fentanyl 2ml Vial) 50 mcg PRN Q2HR PRN IV PAIN; Start at 16:15; Stop 08/13/17 at 16:14; Status DC Acetaminophen (Tylenol) 650 mg PRN Q4HRS PRN PO FEVER; Start 08/12/17 at 16:15 ; Stop 08/12/17 at 18:45; Status DC Sodium Chloride 1,000 ml @ 50 mls/hr 1X ONCE IV Last administered on at 17:34; Start 08/12/17 at 16:30; Stop 08/13/17 at 12:29; Status DC Acetaminophen (Tylenol) 650 mg PRN Q6HRS PRN PO PAIN Last administered on at 21:29; Start 08/12/17 at 18:30 Allopurinol (Zyloprim) 100 mg DAILY PO Last administered on 08/14/17at 07:48; Start 08/13/17 at 09:00 Alprazolam (Xanax) 0.25 mg PRN TID PRN PO ANXIETY / AGITATION; Start 08/12/17 at 18:30 Apixaban (Eliquis) 2.5 mg BID PO Last administered on 08/14/17at 07:47; Start at 21:00 Atorvastatin Calcium (Lipitor) 10 mg HS PO Last administered on 08/13/17at 21:13 ; Start 08/12/17 at 21:00 Albuterol/ Ipratropium (Duoneb) 3 ml PRN Q6HRS PRN NEB SHORTNESS OF BREATH; Start 08/12/17 at 18:30 Lidocaine (Lidoderm) 1 patch DAILY TD Last administered on 08/14/17 07:47; Start 08/13/17 at 09:00 Magnesium Oxide (Magnesium Oxide) 400 mg DAILY PO Last administered on at 07:47; Start 08/13/17 at 09:00 Nitroglycerin (Nitrostat) 0.4 mg PRN Q5MIN PRN SL CHEST PAIN; Start 08/12/17 at 18:30 Metoprolol Tartrate (Lopressor) 25 mg BID PO ; Start 08/12/17 at 21:00; Stop 05/20 at 21:00; Status DC Ropinirole HCl (Requip) 0.25 mg HS PO Last administered on 08/13/17at 21:13; Start 08/12/17 at 21:00 Senna/Docusate Sodium (Senna Plus) 1 tab BID PO Last administered on 08/14/17at 07:47; Start 08/12/17 at 21:00 Trazodone HCl (Desyrel) 50 mg HS PO Last administered on 08/13/17at 21:13; Start 08/12/17 at 21:00 Vitamin D (Vitamin D3) 5,000 unit WEEKLY PO Last administered on 08/13/17at 09: 10; Start 08/13/17 at 09:00 Glimepiride (Amaryl) 4 mg DAILY PO Last administered on 08/14/17at 07:47; Start 08/13/17 at 09:00 Insulin Detemir (Levemir) 20 units BID SQ Last administered on 08/13/17at 09:04 ; Start 08/12/17 at 21:00; Stop 08/13/17 at 14:28; Status DC Meclizine HCl (Antivert) 25 mg PRN TID PRN PO DIZZINESS; Start 08/12/17 at 18: 45; Stop 08/13/17 at 09:45; Status DC Metoprolol Tartrate (Lopressor) 25 mg BID PO Last administered on 08/14/17at 07: 47; Start 08/12/17 at 21:00 Pantoprazole Sodium (Protonix) 40 mg DAILYAC PO Last administered on 1/12/18at 07:47; Start 08/13/17 at 07:30 Meclizine HCl (Antivert) 25 mg TID PO Last administered on 08/14/17at 07:47; Start 08/13/17 at 10:00 Insulin Detemir (Levemir) 20 units BID SQ Last administered on 08/14/17at 07:48 ; Start 08/13/17 at 14:28 Furosemide (Lasix) 40 mg DAILY PO Last administered on 08/14/17at 07:47; Start 08/14/17 at 09:00 Active Scripts Active Trazodone Hcl 50 Mg Tablet 50 Mg PO HS 90 Days Requip (Ropinirole Hcl) 0.25 Mg Tablet 0.25 Mg PO HS 90 Days Pantoprazole Sodium 40 Mg Tablet.dr 40 Mg PO DAILYAC 90 Days Lidocaine 1 Each Adh..patch 1 Patch TD DAILY 60 Days Allopurinol 100 Mg Tablet 1 Tab PO DAILY Reported Meclizine Hcl 25 Mg Tablet 1 Tab PO PRN TID NEXT DOSE DUE: DATE: TODAY TIME: IF NEEDED Duoneb 0.5-3(2.5) Mg/3 Ml (Albuterol/Ipratropium) 3 Ml Ampul.neb 3 Ml NEB PRN Q6HRS PRN LAST DOSE GIVEN: DATE: TODAY TIME: AM NEXT DOSE DUE: DATE: TODAY TIME: AFTERNOON Atorvastatin Calcium 10 Mg Tablet 1 Tab PO HS LAST DOSE GIVEN: DATE: YESTER TIME: AT BEDTIME NEXT DOSE DUE: DATE: TODAY TIME: AT BEDTIME Tylenol (Acetaminophen) 325 Mg Tablet 2 Tab PO PRN Q6HRS PRN NEXT DOSE DUE: DATE: TODAY TIME: IF NEEDED Senokot-S Tablet (Sennosides/Docusate Sodium) 1 Each Tablet 1 Tab PO BID LAST DOSE GIVEN: DATE: TODAY TIME: AM NEXT DOSE DUE: DATE: TODAY TIME: PM Bystolic (Nebivolol Hcl) 5 Mg Tablet 1 Tab PO HS LAST DOSE GIVEN: DATE: YESAY TIME: AT BEDTIME NEXT DOSE DUE: DATE: TODAY TIME: AT BEDTIME Magnesium Oxide 400 Mg Tablet 1 Tab PO DAILY LAST DOSE GIVEN: DATE: TODAY TIME: AM NEXT DOSE DUE: DATE: TOMORROW TIME: AM Glimepiride 4 Mg Tablet 1 Tab PO DAILY LAST DOSE GIVEN: DATE: TODAY TIME: AM NEXT DOSE DUE: DATE: TOMORROW TIME: AM NITROGLYCERIN SubLingual (Nitroglycerin) 0.4 Mg Tab.subl 0.4 Mg SL PRN Q5MIN PRN NEXT DOSE DUE: DATE: TODAY TIME: IF NEEDED NEXT DOSE DUE: DATE: as needed for chest pain TIME: Xanax (Alprazolam) 0.25 Mg Tablet 0.25 Mg PO PRN TID PRN NEXT DOSE DUE: DATE: TODAY TIME: IF NEEDED NEXT DOSE DUE: DATE: 01/02/17 TIME: 0900 Levemir (Insulin Detemir) 100 Unit/1 Ml Vial 20 Unit SQ BID LAST DOSE GIVEN: DATE: YESTER TIME: AT BEDTIME NEXT DOSE DUE: DATE: TODAY TIME: AT BEDTIME Eliquis (Apixaban) 2.5 Mg Tablet 2.5 Mg PO BID LAST DOSE GIVEN: DATE: TODAY TIME: AM NEXT DOSE DUE: DATE: TODAY TIME: PM Vitamin D (Cholecalciferol (Vitamin D3)) 2,000 Unit Capsule 5,000 Unit PO WEEKLY Continue taking on your weekly schedule DATE: 04/18/17 TIME: 09 NEXT DOSE DUE: DATE: 04/25/17 TIME: 09 Vitals/I & O Vital Sign - Last 24 Hours 08/13/17 08/13/17 08/13/17 08/13/17 11:23 14:08 19:23 20:00 Temp 97.8 98.4 97.5 Pulse 88 66 60 Resp 20 18 21 B/P (MAP) 125/55 (78) 115/59 (77) 125/57 (79) Pulse Ox 97 97 98 O2 Delivery Room Air Room Air Room Air Room Air 08/13/17 08/13/17 08/14/17 08/14/17 21:13 23:12 03:00 05:19 Temp 98.6 98.6 Pulse 60 60 66 66 Resp 19 17 17 B/P (MAP) 125/57 126/58 (80) 121/63 (82) 121/63 (82) Pulse Ox 98 97 97 O2 Delivery Room Air Room Air 08/14/17 07:47 Pulse 66 B/P (MAP) 121/63 Intake and Output 08/13/17 08/13/17 08/14/17 15:00 23:00 07:00 Intake Total 1720 ml 500 ml 200 ml Output Total 300 ml 525 ml Balance 1720 ml 200 ml -325 ml CAROL ALLEN Jr, MD Aug 14, 2017 09:49
[2017-08-14] MEDS ORDERED: METHYL SALICYLATE/MENTHOL TOPICAL OINTMENT 29GM TUBE. TP PRN (12:30)
[2017-08-14] MEDS: rOPINIRole 0.25 MG TABLET. PO SCH (20:49)
[2017-08-14] MEDS: traZODone 50 MG TABLET. PO SCH (20:49)
[2017-08-14] MEDS: ATORVASTATIN CALCIUM 10 MG TABLET. PO SCH (20:49)
--- NOTE | 2017-08-14 21:06 | PDOC2 ---
CONSULT Date of Admission DATE: 08/14/17 TIME: 20:40 Reason for Consult: Weakness and dizziness. Referring Physician: Dr. Blair Chief Complaint Weakness of the left side and dizziness. Problem List Problems Medical Problems: (1) Tydce-zi-lxjjlwp kidney injury Status: Acute (2) Congestive heart failure Status: Acute (3) Near syncope Status: Acute History of Present Illness This is an 87-year-old right-handed -[place] female who was admitted through Emergency Room two days ago after she presented with chief complaints of increased generalized weakness of and ldizziness. She also of joints of the lower extremities. She tried to get up of sitting position she had vertigo and felt she is going to pass out. she was caught by her daughter and did not fall to the floor nor did hit her head. hours. The patient also complains of left-sided headaches radiating into the neck and left shoulder blade. She denies visual disturbances, dysphagia, dysarthria or paraesthesia. The patient also complains of exertional dyspnea, but no chest pain or palpitations. Initial nonenhanced head CT scan revealed no evidence of acute intracranial process. Past Medical History Quite extensive, includes coronary artery disease status post stent placement in 2014. She underwent cardiac catheterization in 09/2016, which revealed stenosis of 20% of LAD with patent stent and 80% stenosis in the ostium of the left circumflex, history of DVT and paroxysmal atrial, status post pacemaker placement, hypertension, hyperlipidemia, diabetes mellitus on insulin, history of TIA in the past resulted in weakness of the left upper and lower extremities, gout. Past Surgical History Significant for abdominal surgery, possibly for cholecystectomy, bilateral total knee replacement and status post pacemaker placement. Family History Mother had coronary artery disease, but she at the age of 92, otherwise unremarkable. Social History She denies smoking, alcohol drinking, or illicit drug use. She uses a cane for ambulation Current Medications Current Medications Ondansetron HCl (Zofran) 4 mg PRN Q4HRS PRN IV NAUSEA/VOMITING; Start 08/12/17 at 16:15; Stop 08/13/17 at 16:14; Status DC Fentanyl Citrate (Fentanyl 2ml Vial) 50 mcg PRN Q2HR PRN IV PAIN; Start at 16:15; Stop 08/13/17 at 16:14; Status DC Acetaminophen (Tylenol) 650 mg PRN Q4HRS PRN PO FEVER; Start 08/12/17 at 16:15 ; Stop 08/12/17 at 18:45; Status DC Sodium Chloride 1,000 ml @ 50 mls/hr 1X ONCE IV Last administered on at 17:34; Start 08/12/17 at 16:30; Stop 08/13/17 at 12:29; Status DC Acetaminophen (Tylenol) 650 mg PRN Q6HRS PRN PO PAIN Last administered on at 21:29; Start 08/12/17 at 18:30 Allopurinol (Zyloprim) 100 mg DAILY PO Last administered on 08/14/17 07:48; Start 08/13/17 at 09:00 Alprazolam (Xanax) 0.25 mg PRN TID PRN PO ANXIETY / AGITATION; Start 08/12/17 at 18:30 Apixaban (Eliquis) 2.5 mg BID PO Last administered on 08/14/17 07:47; Start at 21:00 Atorvastatin Calcium (Lipitor) 10 mg HS PO Last administered on 08/13/17at 21:13 ; Start 08/12/17 at 21:00 Albuterol/ Ipratropium (Duoneb) 3 ml PRN Q6HRS PRN NEB SHORTNESS OF BREATH; Start 08/12/17 at 18:30 Lidocaine (Lidoderm) 1 patch DAILY TD Last administered on 08/14/17at 07:47; Start 08/13/17 at 09:00 Magnesium Oxide (Magnesium Oxide) 400 mg DAILY PO Last administered on at 07:47; Start 08/13/17 at 09:00 Nitroglycerin (Nitrostat) 0.4 mg PRN Q5MIN PRN SL CHEST PAIN; Start 08/12/17 at 18:30 Metoprolol Tartrate (Lopressor) 25 mg BID PO ; Start 08/12/17 at 21:00; Stop 05/20 at 21:00; Status DC Ropinirole HCl (Requip) 0.25 mg HS PO Last administered on 08/13/17at 21:13; Start 08/12/17 at 21:00 Senna/Docusate Sodium (Senna Plus) 1 tab BID PO Last administered on 08/14/17at 07:47; Start 08/12/17 at 21:00 Trazodone HCl (Desyrel) 50 mg HS PO Last administered on 08/13/17at 21:13; Start 08/12/17 at 21:00 Vitamin D (Vitamin D3) 5,000 unit WEEKLY PO Last administered on 08/13/17at 09: 10; Start 08/13/17 at 09:00 Glimepiride (Amaryl) 4 mg DAILY PO Last administered on 08/14/17at 07:47; Start 08/13/17 at 09:00 Insulin Detemir (Levemir) 20 units BID SQ Last administered on 08/13/17at 09:04 ; Start 08/12/17 at 21:00; Stop 08/13/17 at 14:28; Status DC Meclizine HCl (Antivert) 25 mg PRN TID PRN PO DIZZINESS; Start 08/12/17 at 18: 45; Stop 08/13/17 at 09:45; Status DC Metoprolol Tartrate (Lopressor) 25 mg BID PO Last administered on 08/14/17at 07: 47; Start 08/12/17 at 21:00 Pantoprazole Sodium (Protonix) 40 mg DAILYAC PO Last administered on 08/14/17at 07:47; Start 08/13/17 at 07:30 Meclizine HCl (Antivert) 25 mg TID PO Last administered on 08/14/17at 13:37; Start 08/13/17 at 10:00 Insulin Detemir (Levemir) 20 units BID SQ Last administered on 08/14/17at 07:48 ; Start 08/13/17 at 14:28 Furosemide (Lasix) 40 mg DAILY PO Last administered on 08/14/17at 07:47; Start 08/14/17 at 09:00 Multi-Ingredient Ointment (Analgesic [place]) 1 lucio PRN QID PRN TP MUSCLE PAIN; Start 08/14/17 at 12:30 Active Scripts Active Trazodone Hcl 50 Mg Tablet 50 Mg PO HS 90 Days Requip (Ropinirole Hcl) 0.25 Mg Tablet 0.25 Mg PO HS 90 Days Pantoprazole Sodium 40 Mg Tablet.dr 40 Mg PO DAILYAC 90 Days Lidocaine 1 Each Adh..patch 1 Patch TD DAILY 60 Days Allopurinol 100 Mg Tablet 1 Tab PO DAILY Reported Meclizine Hcl 25 Mg Tablet 1 Tab PO PRN TID NEXT DOSE DUE: DATE: TODAY TIME: IF NEEDED Duoneb 0.5-3(2.5) Mg/3 Ml (Albuterol/Ipratropium) 3 Ml Ampul.neb 3 Ml NEB PRN Q6HRS PRN LAST DOSE GIVEN: DATE: TIME: AM NEXT DOSE DUE: DATE: TIME: AFTERNOON Atorvastatin Calcium 10 Mg Tablet 1 Tab PO HS LAST DOSE GIVEN: DATE: YESTER TIME: AT BEDTIME NEXT DOSE DUE: DATE: TODAY TIME: AT BEDTIME Tylenol (Acetaminophen) 325 Mg Tablet 2 Tab PO PRN Q6HRS PRN NEXT DOSE DUE: DATE: TODAY TIME: IF NEEDED Senokot-S Tablet (Sennosides/Docusate Sodium) 1 Each Tablet 1 Tab PO BID LAST DOSE GIVEN: DATE: TIME: AM NEXT DOSE DUE: DATE: TIME: PM Bystolic (Nebivolol Hcl) 5 Mg Tablet 1 Tab PO HS LAST DOSE GIVEN: DATE: TIME: AT BEDTIME NEXT DOSE DUE: DATE: TODAY TIME: AT BEDTIME Magnesium Oxide 400 Mg Tablet 1 Tab PO DAILY LAST DOSE GIVEN: DATE: TIME: AM NEXT DOSE DUE: DATE: TOMORR TIME: AM Glimepiride 4 Mg Tablet 1 Tab PO DAILY LAST DOSE GIVEN: DATE: TIME: AM NEXT DOSE DUE: DATE: TOM TIME: AM NITROGLYCERIN SubLingual (Nitroglycerin) 0.4 Mg Tab.subl 0.4 Mg SL PRN Q5MIN PRN NEXT DOSE DUE: DATE: TIME: IF NEEDED NEXT DOSE DUE: DATE: as needed for chest pain TIME: Xanax (Alprazolam) 0.25 Mg Tablet 0.25 Mg PO PRN TID PRN NEXT DOSE DUE: DATE: TODAY TIME: IF NEEDED NEXT DOSE DUE: DATE: 01/02/17 TIME: 0900 Levemir (Insulin Detemir) 100 Unit/1 Ml Vial 20 Unit SQ BID LAST DOSE GIVEN: DATE: TIME: AT BEDTIME NEXT DOSE DUE: DATE: TODAY TIME: AT BEDTIME Eliquis (Apixaban) 2.5 Mg Tablet 2.5 Mg PO BID LAST DOSE GIVEN: DATE: TIME: AM NEXT DOSE DUE: DATE: TODAY TIME: PM Vitamin D (Cholecalciferol (Vitamin D3)) 2,000 Unit Capsule 5,000 Unit PO WEEKLY Continue taking on your weekly schedule DATE: 04/18/17 TIME: 0900 NEXT DOSE DUE: DATE: 04/25/17 TIME: 0900 Allergies: Coded Allergies: Influenza Virus Vaccines (Verified Allergy, Intermediate, GENERALIZED BODY /JOINT ACHES, 10/07/16) Penicillins (Verified Allergy, Intermediate, NAUSEA/VOMITING, 10/07/16) amoxicillin (Verified Allergy, Intermediate, Nausea/Vomiting, 10/07/16) cephalexin (Verified Allergy, Intermediate, Nausea/Vomiting, 10/07/16) clavulanic acid (Verified Allergy, Intermediate, Nausea/Vomiting, 10/07/16) metoclopramide (Verified Allergy, Intermediate, NAUSEA/VOMITING, 10/07/16) Review of System Ten-point review of system was performed as mentioned above in the history of present illness Physical Exam GENERAL: Well-developed, well-nourished -[place] female, not in acute distress. She weighs 178 pounds. HEENT: Normocephalic, atraumatic, otherwise unremarkable. NECK: Supple. Negative for carotid bruit, lymphadenopathy or thyromegaly. LUNGS: Clear to A and P. CARDIOVASCULAR: Regular rate and rhythm, normal S1, S2. There is no S3, S4 or murmur. ABDOMEN: Soft. Bowel sounds positive. EXTREMITIES: Negative for cyanosis, clubbing or pitting edema. NEUROLOGICAL EXAMINATION: 1. Mental Status: The patient is alert and oriented x 3. Speech is fluent. There is no language dysfunction. Memory, judgment, and abstract thinking are fair. The patient denies hallucination or delusion. 2. Cranial Nerves: Visual allen are full. The pupils are reactive to light and accommodation. The extraocular movements are intact. There is no nystagmus. There is no facial motor or sensory deficit. Hearing is intact bilaterally. The palate is elevated symmetrically. Sternocleidomastoid muscles are powerful bilaterally. The patient shrugs her shoulders symmetrically and protrudes her tongue in the midline without fasciculation or atrophy. 3. Motor Examination: No focal muscle bulk was seen. The tone is normal. The strength is 4/5 throughout. 4. Sensory Examination: Revealed normal pinprick, light touch, vibratory and position senses. 5. Deep tendon reflexes are symmetric and active with absent Achilles responses. Babinski is positive on the left side. 6. Gait: The patient has unsteady stance even though when she tried to use a walker. VITALS Vital Signs Date Time Temp Pulse Resp B/P (MAP) Pulse Ox O2 Delivery O2 Flow Rate FiO2 08/14/17 19:27 98.4 08/14/17 18:14 75 20 126/64 (84) 98 Room Air Labs Laboratory Tests Test 08/12/17 21:22 08/13/17 06:11 08/13/17 07:26 08/13/17 11:25 Glucose (Fingerstick) 171 mg/dL (70-99) 83 mg/dL (70-99) 273 mg/dL (70-99) White Blood Count 7.3 x10^3/uL (4.0-11.0) Red Blood Count 3.71 x10^6/uL (3.50-5.40) Hemoglobin 10.5 g/dL (12.0-15.5) Hematocrit 31.7 % (36.0-47.0) Mean Corpuscular Volume 86 fL (79-100) Mean Corpuscular Hemoglobin 28 pg (25-35) Mean Corpuscular Hemoglobin Concent 33 g/dL (31-37) Red Cell Distribution Width 15.8 % (11.5-14.5) Platelet Count 166 x10^3/uL (140-400) Neutrophils (%) (Auto) 56 % (31-73) Lymphocytes (%) (Auto) 35 % (24-48) Monocytes (%) (Auto) 7 % (0-9) Eosinophils (%) (Auto) 2 % (0-3) Basophils (%) (Auto) 1 % (0-3) Neutrophils # (Auto) 4.1 x10^3uL (1.8-7.7) Lymphocytes # (Auto) 2.6 x10^3/uL (1.0-4.8) Monocytes # (Auto) 0.5 x10^3/uL (0.0-1.1) Eosinophils # (Auto) 0.1 x10^3/uL (0.0-0.7) Basophils # (Auto) 0.0 x10^3/uL (0.0-0.2) Sodium Level 141 mmol/L (136-145) Potassium Level 4.0 mmol/L (3.5-5.1) Chloride Level 103 mmol/L (98-107) Carbon Dioxide Level 30 mmol/L (21-32) Anion Gap 8 (6-14) Blood Urea Nitrogen 67 mg/dL (7-20) Creatinine 2.5 mg/dL (0.6-1.0) Estimated GFR (Cockcroft-Gault) 22.0 Glucose Level 107 mg/dL (70-99) Calcium Level 8.9 mg/dL (8.5-10.1) Magnesium Level 2.4 mg/dL (1.8-2.4) Test 08/13/17 16:29 08/13/17 19:33 08/14/17 05:50 08/14/17 07:19 Glucose (Fingerstick) 241 mg/dL (70-99) 263 mg/dL (70-99) 80 mg/dL (70-99) White Blood Count 6.4 x10^3/uL (4.0-11.0) Red Blood Count 3.56 x10^6/uL (3.50-5.40) Hemoglobin 10.0 g/dL (12.0-15.5) Hematocrit 30.4 % (36.0-47.0) Mean Corpuscular Volume 86 fL (79-100) Mean Corpuscular Hemoglobin 28 pg (25-35) Mean Corpuscular Hemoglobin Concent 33 g/dL (31-37) Red Cell Distribution Width 15.7 % (11.5-14.5) Platelet Count 159 x10^3/uL (140-400) Neutrophils (%) (Auto) 54 % (31-73) Lymphocytes (%) (Auto) 36 % (24-48) Monocytes (%) (Auto) 7 % (0-9) Eosinophils (%) (Auto) 2 % (0-3) Basophils (%) (Auto) 1 % (0-3) Neutrophils # (Auto) 3.4 x10^3uL (1.8-7.7) Lymphocytes # (Auto) 2.3 x10^3/uL (1.0-4.8) Monocytes # (Auto) 0.5 x10^3/uL (0.0-1.1) Eosinophils # (Auto) 0.1 x10^3/uL (0.0-0.7) Basophils # (Auto) 0.0 x10^3/uL (0.0-0.2) Sodium Level 141 mmol/L (136-145) Potassium Level 4.1 mmol/L (3.5-5.1) Chloride Level 104 mmol/L (98-107) Carbon Dioxide Level 31 mmol/L (21-32) Anion Gap 6 (6-14) Blood Urea Nitrogen 64 mg/dL (7-20) Creatinine 2.5 mg/dL (0.6-1.0) Estimated GFR (Cockcroft-Gault) 22.0 BUN/Creatinine Ratio 26 (6-20) Glucose Level 107 mg/dL (70-99) Calcium Level 9.1 mg/dL (8.5-10.1) Magnesium Level 2.6 mg/dL (1.8-2.4) Total Bilirubin 0.2 mg/dL (0.2-1.0) Aspartate Amino Transf (AST/SGOT) 14 U/L (15-37) Alanine Aminotransferase (ALT/SGPT) 14 U/L (14-59) Alkaline Phosphatase 47 U/L (46-116) Total Protein 6.5 g/dL (6.4-8.2) Albumin 3.1 g/dL (3.4-5.0) Albumin/Globulin Ratio 0.9 (1.0-1.7) Test 08/14/17 11:45 08/14/17 16:32 Glucose (Fingerstick) 151 mg/dL (70-99) 180 mg/dL (70-99) Assessment/Plan IMPRESSION: 1. Generl weakness and presyncope and vertigo. rule out orthoststic hypotension 2. Extensive multiple medical problems includes coronary artery disease, hypertension, hyperlipidemia, diabetes mellitus, gout, gastroesophageal reflux disease, restless leg syndrome, neck pain, status post pacemaker placement. RECOMMENDATIONS: 1. Check for orthostatic hypotension 2. Continue with current management initiated by Dr. Blair. 3. Physical therapy as tolerated. 4. Cardiology consultation with her multi care technician Problems: HAILE DONALD MD Aug 14, 2017 21:06
[2017-08-15 07:45] VITALS: BP 125/71
[2017-08-15] MEDS: PANTOPRAZOLE 40 MG TABLET. PO SCH (08:05)
[2017-08-15] MEDS: APIXABAN 2.5 MG TABLET PO SCH (08:57)
[2017-08-15] MEDS: GLIMEPIRIDE 2 MG TABLET PO SCH (08:57)
[2017-08-15] MEDS: MECLIZINE 12.5 MG TABLET. PO SCH ×2 (08:57→14:46)
[2017-08-15] MEDS: FUROSEMIDE 40 MG TABLET PO SCH (08:57)
[2017-08-15] MEDS: METOPROLOL TART IMMED RELEASE 25 MG TABLET PO SCH (08:58)
[2017-08-15] MEDS: SENNOSIDES/DOCUSATE 8.6/50MG TABLET. PO SCH (08:58)
[2017-08-15] MEDS: ALLOPURINOL 100 MG TABLET. PO SCH (08:58)
[2017-08-15] MEDS: MAGNESIUM OXIDE 400 MG TABLET PO SCH (08:58)
[2017-08-15] MEDS ORDERED: CALCIUM CARBONATE 500 MG TABLET PO SCH (09:00)
[2017-08-15] MEDS: LIDOCAINE (700MG/PATCH) PATCH. TD SCH (09:01)
[2017-08-15] MEDS: INSULIN DETEMIR 300 UNITS/3 ML INSULN.PEN. SQ SCH (09:30)
[2017-08-15 11:14] VITALS: BP 89/51
[2017-08-15 12:05] VITALS: BP 121/66
--- NOTE | 2017-08-15 12:08 | PDOC ---
PROGRESS NOTES Diagnosis Problem Problems Medical Problems: (1) Nhwil-en-nlawcws kidney injury Status: Acute (2) Congestive heart failure Status: Acute (3) Near syncope Status: Acute Assessment 1. Near-syncope: Pt improved on meclizine and changing diuretics. BP is stable. Pt can be discharged today, though I will recheck a BMP first. 2. Headache: Chronic, recurrent. Pt to f/u with Dr. Reynoso as outpatient. 3. Chronic renal failure: Baseline creat is 2.5. Will need recheck in 1 week to see how she responds to the change in diuretics. 4. Atrial fibrillation: Continue NOAC for stroke prevention. Rate controlled. Paced. 5. Disp: Likely d/c later today, will check BMP. Problems: Plan of Care: see other orders Subjective Pt states she is feeling pretty well today and looking forward to going home. NO dizziness today. Denies serious ARECHIGA. Denies CP or SOA. No fever or n/v. Voiding adequately. Objective Vital Signs Date Time Temp Pulse Resp B/P (MAP) Pulse Ox O2 Delivery O2 Flow Rate FiO2 08/15/17 11:14 98.4 79 16 89/51 (64) 95 Room Air Intake and Output 08/15/17 07:00 Intake Total 1240 ml Output Total 1550 ml Balance -310 ml Intake Oral 1240 ml Output Urine Total 1550 ml Abdomen: Soft, No tenderness Heart: No murmurs, Other (Paced rhythm) Extremities: Other (Emeka's neg bilaterally) General: Alert, Oriented X3, Cooperative, No acute distress HEENT: PERRLA, EOMI, Mucous membr. moist/pink Lungs: Clear to auscultation, Normal air movement Neck: No JVD Neuro: Normal speech, Strength at 5/5 X4 ext, Cranial nerves 3-12 NL Psych/Mental Status: Mental status NL, Mood NL Skin: No rashes Review of Relevant I have reviewed the following items alisha (where applicable) has been applied. Labs Laboratory Tests Test 08/13/17 16:29 08/13/17 19:33 08/14/17 05:50 08/14/17 07:19 Glucose (Fingerstick) 241 mg/dL (70-99) 263 mg/dL (70-99) 80 mg/dL (70-99) White Blood Count 6.4 x10^3/uL (4.0-11.0) Red Blood Count 3.56 x10^6/uL (3.50-5.40) Hemoglobin 10.0 g/dL (12.0-15.5) Hematocrit 30.4 % (36.0-47.0) Mean Corpuscular Volume 86 fL (79-100) Mean Corpuscular Hemoglobin 28 pg (25-35) Mean Corpuscular Hemoglobin Concent 33 g/dL (31-37) Red Cell Distribution Width 15.7 % (11.5-14.5) Platelet Count 159 x10^3/uL (140-400) Neutrophils (%) (Auto) 54 % (31-73) Lymphocytes (%) (Auto) 36 % (24-48) Monocytes (%) (Auto) 7 % (0-9) Eosinophils (%) (Auto) 2 % (0-3) Basophils (%) (Auto) 1 % (0-3) Neutrophils # (Auto) 3.4 x10^3uL (1.8-7.7) Lymphocytes # (Auto) 2.3 x10^3/uL (1.0-4.8) Monocytes # (Auto) 0.5 x10^3/uL (0.0-1.1) Eosinophils # (Auto) 0.1 x10^3/uL (0.0-0.7) Basophils # (Auto) 0.0 x10^3/uL (0.0-0.2) Sodium Level 141 mmol/L (136-145) Potassium Level 4.1 mmol/L (3.5-5.1) Chloride Level 104 mmol/L (98-107) Carbon Dioxide Level 31 mmol/L (21-32) Anion Gap 6 (6-14) Blood Urea Nitrogen 64 mg/dL (7-20) Creatinine 2.5 mg/dL (0.6-1.0) Estimated GFR (Cockcroft-Gault) 22.0 BUN/Creatinine Ratio 26 (6-20) Glucose Level 107 mg/dL (70-99) Calcium Level 9.1 mg/dL (8.5-10.1) Magnesium Level 2.6 mg/dL (1.8-2.4) Total Bilirubin 0.2 mg/dL (0.2-1.0) Aspartate Amino Transf (AST/SGOT) 14 U/L (15-37) Alanine Aminotransferase (ALT/SGPT) 14 U/L (14-59) Alkaline Phosphatase 47 U/L (46-116) Total Protein 6.5 g/dL (6.4-8.2) Albumin 3.1 g/dL (3.4-5.0) Albumin/Globulin Ratio 0.9 (1.0-1.7) Test 08/14/17 11:45 08/14/17 16:32 08/14/17 20:56 08/15/17 07:46 Glucose (Fingerstick) 151 mg/dL (70-99) 180 mg/dL (70-99) 287 mg/dL (70-99) 83 mg/dL (70-99) Test 08/15/17 11:29 Glucose (Fingerstick) 215 mg/dL (70-99) Microbiology 08/12/17 Urine Culture - Final, Complete 08/12/17 Urine Culture Result 1 (CLAUDIO) - Final, Complete Medications Current Medications Ondansetron HCl (Zofran) 4 mg PRN Q4HRS PRN IV NAUSEA/VOMITING; Start 08/12/17 at 16:15; Stop 08/13/17 at 16:14; Status DC Fentanyl Citrate (Fentanyl 2ml Vial) 50 mcg PRN Q2HR PRN IV PAIN; Start at 16:15; Stop 08/13/17 at 16:14; Status DC Acetaminophen (Tylenol) 650 mg PRN Q4HRS PRN PO FEVER; Start 08/12/17 at 16:15 ; Stop 08/12/17 at 18:45; Status DC Sodium Chloride 1,000 ml @ 50 mls/hr 1X ONCE IV Last administered on at 17:34; Start 08/12/17 at 16:30; Stop 08/13/17 at 12:29; Status DC Acetaminophen (Tylenol) 650 mg PRN Q6HRS PRN PO PAIN Last administered on at 21:29; Start 08/12/17 at 18:30 Allopurinol (Zyloprim) 100 mg DAILY PO Last administered on 08/15/17at 08:58; Start 08/13/17 at 09:00 Alprazolam (Xanax) 0.25 mg PRN TID PRN PO ANXIETY / AGITATION; Start 08/12/17 at 18:30 Apixaban (Eliquis) 2.5 mg BID PO Last administered on 08/15/17at 08:57; Start at 21:00 Atorvastatin Calcium (Lipitor) 10 mg HS PO Last administered on 08/14/17at 20:49 ; Start 08/12/17 at 21:00 Albuterol/ Ipratropium (Duoneb) 3 ml PRN Q6HRS PRN NEB SHORTNESS OF BREATH; Start 08/12/17 at 18:30 Lidocaine (Lidoderm) 1 patch DAILY TD Last administered on 08/15/17at 09:01; Start 08/13/17 at 09:00 Magnesium Oxide (Magnesium Oxide) 400 mg DAILY PO Last administered on at 08:58; Start 08/13/17 at 09:00 Nitroglycerin (Nitrostat) 0.4 mg PRN Q5MIN PRN SL CHEST PAIN; Start 08/12/17 at 18:30 Metoprolol Tartrate (Lopressor) 25 mg BID PO ; Start 08/12/17 at 21:00; Stop 05/20 at 21:00; Status DC Ropinirole HCl (Requip) 0.25 mg HS PO Last administered on 08/14/17at 20:49; Start 08/12/17 at 21:00 Senna/Docusate Sodium (Senna Plus) 1 tab BID PO Last administered on 08/15/17at 08:58; Start 08/12/17 at 21:00 Trazodone HCl (Desyrel) 50 mg HS PO Last administered on 08/14/17at 20:49; Start 08/12/17 at 21:00 Vitamin D (Vitamin D3) 5,000 unit WEEKLY PO Last administered on 08/13/17at 09: 10; Start 08/13/17 at 09:00 Glimepiride (Amaryl) 4 mg DAILY PO Last administered on 08/15/17at 08:57; Start 08/13/17 at 09:00 Insulin Detemir (Levemir) 20 units BID SQ Last administered on 08/13/17at 09:04 ; Start 08/12/17 at 21:00; Stop 08/13/17 at 14:28; Status DC Meclizine HCl (Antivert) 25 mg PRN TID PRN PO DIZZINESS; Start 08/12/17 at 18: 45; Stop 08/13/17 at 09:45; Status DC Metoprolol Tartrate (Lopressor) 25 mg BID PO Last administered on 08/15/17at 08: 58; Start 08/12/17 at 21:00 Pantoprazole Sodium (Protonix) 40 mg DAILYAC PO Last administered on 08/15/17at 08:05; Start 08/13/17 at 07:30 Meclizine HCl (Antivert) 25 mg TID PO Last administered on 08/15/17at 08:57; Start 08/13/17 at 10:00 Insulin Detemir (Levemir) 20 units BID SQ Last administered on 08/15/17at 09:30 ; Start 08/13/17 at 14:28 Furosemide (Lasix) 40 mg DAILY PO Last administered on 08/15/17at 08:57; Start 08/14/17 at 09:00 Multi-Ingredient Ointment (Analgesic [place]) 1 lucio PRN QID PRN TP MUSCLE PAIN; Start 08/14/17 at 12:30 Calcium Carbonate/ Glycine (Oscal) 500 mg TIDAFTMEAL PO ; Start 08/15/17 at 09: 00; Stop 08/15/17 at 09:00; Status DC Active Scripts Active Trazodone Hcl 50 Mg Tablet 50 Mg PO HS 90 Days Requip (Ropinirole Hcl) 0.25 Mg Tablet 0.25 Mg PO HS 90 Days Pantoprazole Sodium 40 Mg Tablet.dr 40 Mg PO DAILYAC 90 Days Lidocaine 1 Each Adh..patch 1 Patch TD DAILY 60 Days Allopurinol 100 Mg Tablet 1 Tab PO DAILY Reported Meclizine Hcl 25 Mg Tablet 1 Tab PO PRN TID NEXT DOSE DUE: DATE: TODAY TIME: IF NEEDED Duoneb 0.5-3(2.5) Mg/3 Ml (Albuterol/Ipratropium) 3 Ml Ampul.neb 3 Ml NEB PRN Q6HRS PRN LAST DOSE GIVEN: DATE: TODAY TIME: AM NEXT DOSE DUE: DATE: TODAY TIME: AFTERNOON Atorvastatin Calcium 10 Mg Tablet 1 Tab PO HS LAST DOSE GIVEN: DATE: YESTERDAY TIME: AT BEDTIME NEXT DOSE DUE: DATE: TODAY TIME: AT BEDTIME Tylenol (Acetaminophen) 325 Mg Tablet 2 Tab PO PRN Q6HRS PRN NEXT DOSE DUE: DATE: TODAY TIME: IF NEEDED Senokot-S Tablet (Sennosides/Docusate Sodium) 1 Each Tablet 1 Tab PO BID LAST DOSE GIVEN: DATE: TODAY TIME: AM NEXT DOSE DUE: DATE: TODAY TIME: PM Bystolic (Nebivolol Hcl) 5 Mg Tablet 1 Tab PO HS LAST DOSE GIVEN: DATE: TIME: AT BEDTIME NEXT DOSE DUE: DATE: TIME: AT BEDTIME Magnesium Oxide 400 Mg Tablet 1 Tab PO DAILY LAST DOSE GIVEN: DATE: TODAY TIME: AM NEXT DOSE DUE: DATE: TOMORR TIME: AM Glimepiride 4 Mg Tablet 1 Tab PO DAILY LAST DOSE GIVEN: DATE: TIME: AM NEXT DOSE DUE: DATE: TOMORR TIME: AM NITROGLYCERIN SubLingual (Nitroglycerin) 0.4 Mg Tab.subl 0.4 Mg SL PRN Q5MIN PRN NEXT DOSE DUE: DATE: TIME: IF NEEDED NEXT DOSE DUE: DATE: as needed for chest pain TIME: Xanax (Alprazolam) 0.25 Mg Tablet 0.25 Mg PO PRN TID PRN NEXT DOSE DUE: DATE: TIME: IF NEEDED NEXT DOSE DUE: DATE: 01/02/17 TIME: 0900 Levemir (Insulin Detemir) 100 Unit/1 Ml Vial 20 Unit SQ BID LAST DOSE GIVEN: DATE: YESTER TIME: AT BEDTIME NEXT DOSE DUE: DATE: TODAY TIME: AT BEDTIME Eliquis (Apixaban) 2.5 Mg Tablet 2.5 Mg PO BID LAST DOSE GIVEN: DATE: TIME: AM NEXT DOSE DUE: DATE: TODAY TIME: PM Vitamin D (Cholecalciferol (Vitamin D3)) 2,000 Unit Capsule 5,000 Unit PO WEEKLY Continue taking on your weekly schedule DATE: 04/18/17 TIME: 0900 NEXT DOSE DUE: DATE: 04/25/17 TIME: 0900 Vitals/I & O Vital Sign - Last 24 Hours 08/14/17 08/14/17 08/14/17 08/14/17 15:42 15:43 15:44 18:14 Temp 98.3 98.3 Pulse 67 72 84 75 Resp 20 20 B/P (MAP) 115/42 (66) 84/47 (59) 128/59 (82) 126/64 (84) Pulse Ox 98 98 O2 Delivery Room Air Room Air 08/14/17 08/14/17 08/14/17 08/14/17 19:27 20:00 20:49 21:00 Temp 98.4 Pulse 75 68 Resp 18 B/P (MAP) 126/64 109/56 (73) Pulse Ox 97 O2 Delivery Room Air Room Air 08/15/17 08/15/17 08/15/17 08/15/17 03:20 07:45 08:00 08:58 Pulse 72 60 70 Resp 17 20 B/P (MAP) 125/71 (89) 125/71 Pulse Ox 98 O2 Delivery Room Air Room Air Room Air 08/15/17 11:14 Temp 98.4 Pulse 79 Resp 16 B/P (MAP) 89/51 (64) Pulse Ox 95 O2 Delivery Room Air Intake and Output 08/14/17 08/14/17 08/15/17 15:00 23:00 07:00 Intake Total 480 ml 640 ml 120 ml Output Total 600 ml 950 ml 0 ml Balance -120 ml -310 ml 120 ml HAL KOHLRE MD Aug 15, 2017 12:08
[2017-08-15 12:16] LABS: CALCIUM 8.9 mg/dL (8.5-10.1); CREATININE 2.5 mg/dL (0.6-1.0)
[2017-08-15] MEDS ORDERED: FURO40TA4 PO (15:00)
--- NOTE | 2017-08-15 15:03 | DISCH ---
DISCHARGE INSTRUCTIONS-DC Condition on Discharge Condition on Discharge: Stable Problems: Activity after Discharge Activity Instructions for Disc: Activity as tolerated Diet after Discharge Diet after Discharge: Cardiac, Diabetic No Calorie Level Checks after Discharge Checks after discharge: Check blood sugar, ac/hs Contacting the DR. after DC Call your doctor for: If your condition worsens Follow-Up Follow up with: PCP in 1 week Follow up with: Cardiology in 1-2 weeks HAL KOHLER MD Aug 15, 2017 15:03
[2017-08-15 15:04] VITALS: BP 105/78
[2017-08-15] MEDS ORDERED: MECL25TA3 PO (15:24)
--- NOTE | 2017-08-15 15:49 | PDOC3 ---
Discharge Summary Discharge Summary Date of Admission Date of Admission: Aug 12, 2017 at 15:49 Admitting Diagnosis Near-syncope Chronic renal failure Hx of CVA/TIA DM2 HTN HPL Atrial fibrillation Date of Discharge: Aug 15, 2017 Discharge Diagnosis Near-syncope Chronic renal failure Hx of CVA/TIA DM2 HTN HPL Atrial fibrillation Laboratory Findings Laboratory Tests Test 08/12/17 14:34 08/12/17 15:10 08/12/17 18:16 08/12/17 19:09 White Blood Count 7.1 x10^3/uL (4.0-11.0) Red Blood Count 3.82 x10^6/uL (3.50-5.40) Hemoglobin 10.6 g/dL (12.0-15.5) Hematocrit 32.9 % (36.0-47.0) Mean Corpuscular Volume 86 fL (79-100) Mean Corpuscular Hemoglobin 28 pg (25-35) Mean Corpuscular Hemoglobin Concent 32 g/dL (31-37) Red Cell Distribution Width 16.0 % (11.5-14.5) Platelet Count 177 x10^3/uL (140-400) Neutrophils (%) (Auto) 61 % (31-73) Lymphocytes (%) (Auto) 30 % (24-48) Monocytes (%) (Auto) 7 % (0-9) Eosinophils (%) (Auto) 2 % (0-3) Basophils (%) (Auto) 1 % (0-3) Neutrophils # (Auto) 4.3 x10^3uL (1.8-7.7) Lymphocytes # (Auto) 2.1 x10^3/uL (1.0-4.8) Monocytes # (Auto) 0.5 x10^3/uL (0.0-1.1) Eosinophils # (Auto) 0.1 x10^3/uL (0.0-0.7) Basophils # (Auto) 0.1 x10^3/uL (0.0-0.2) Sodium Level 141 mmol/L (136-145) Potassium Level 4.6 mmol/L (3.5-5.1) Chloride Level 102 mmol/L (98-107) Carbon Dioxide Level 31 mmol/L (21-32) Anion Gap 8 (6-14) Blood Urea Nitrogen 68 mg/dL (7-20) Creatinine 2.5 mg/dL (0.6-1.0) Estimated GFR (Cockcroft-Gault) 22.0 Glucose Level 108 mg/dL (70-99) Calcium Level 9.6 mg/dL (8.5-10.1) Magnesium Level 2.5 mg/dL (1.8-2.4) Total Bilirubin 0.3 mg/dL (0.2-1.0) Direct Bilirubin 0.1 mg/dL (0.0-0.2) Aspartate Amino Transf (AST/SGOT) 14 U/L (15-37) Alanine Aminotransferase (ALT/SGPT) 17 U/L (14-59) Alkaline Phosphatase 56 U/L (46-116) Troponin I Quantitative < 0.017 ng/mL (0-0.055) Total Protein 7.3 g/dL (6.4-8.2) Albumin 3.4 g/dL (3.4-5.0) Lipase 86 U/L (73-393) Urine Collection Type U cath Urine Color Yellow Urine Clarity Hazy Urine pH 5.0 Urine Specific [place] <=1.005 Urine Protein Trace (NEG-TRACE) Urine Glucose (UA) Neg mg/dL (NEG) Urine Ketones (Stick) Neg mg/dL (NEG) Urine Blood Neg (NEG) Urine Nitrite Neg (NEG) Urine Bilirubin Neg (NEG) Urine Urobilinogen Dipstick 0.2 mg/dL (0.2 mg/dL) Urine Leukocyte Esterase Small (NEG) Urine RBC 0 /HPF (0-2) Urine WBC 1-4 /HPF (0-4) Urine Squamous Epithelial Cells Occ /LPF Urine Transitional Epithelial Cells Occ /LPF Urine Bacteria Few /HPF (0-FEW) Urine Mucus Slight /LPF Nasal Screen MRSA (PCR) Negative (Negative) Glucose (Fingerstick) 166 mg/dL (70-99) Test 08/12/17 21:22 08/13/17 06:11 08/13/17 07:26 08/13/17 11:25 Glucose (Fingerstick) 171 mg/dL (70-99) 83 mg/dL (70-99) 273 mg/dL (70-99) White Blood Count 7.3 x10^3/uL (4.0-11.0) Red Blood Count 3.71 x10^6/uL (3.50-5.40) Hemoglobin 10.5 g/dL (12.0-15.5) Hematocrit 31.7 % (36.0-47.0) Mean Corpuscular Volume 86 fL (79-100) Mean Corpuscular Hemoglobin 28 pg (25-35) Mean Corpuscular Hemoglobin Concent 33 g/dL (31-37) Red Cell Distribution Width 15.8 % (11.5-14.5) Platelet Count 166 x10^3/uL (140-400) Neutrophils (%) (Auto) 56 % (31-73) Lymphocytes (%) (Auto) 35 % (24-48) Monocytes (%) (Auto) 7 % (0-9) Eosinophils (%) (Auto) 2 % (0-3) Basophils (%) (Auto) 1 % (0-3) Neutrophils # (Auto) 4.1 x10^3uL (1.8-7.7) Lymphocytes # (Auto) 2.6 x10^3/uL (1.0-4.8) Monocytes # (Auto) 0.5 x10^3/uL (0.0-1.1) Eosinophils # (Auto) 0.1 x10^3/uL (0.0-0.7) Basophils # (Auto) 0.0 x10^3/uL (0.0-0.2) Sodium Level 141 mmol/L (136-145) Potassium Level 4.0 mmol/L (3.5-5.1) Chloride Level 103 mmol/L (98-107) Carbon Dioxide Level 30 mmol/L (21-32) Anion Gap 8 (6-14) Blood Urea Nitrogen 67 mg/dL (7-20) Creatinine 2.5 mg/dL (0.6-1.0) Estimated GFR (Cockcroft-Gault) 22.0 Glucose Level 107 mg/dL (70-99) Calcium Level 8.9 mg/dL (8.5-10.1) Magnesium Level 2.4 mg/dL (1.8-2.4) Test 08/13/17 16:29 08/13/17 19:33 08/14/17 05:50 08/14/17 07:19 Glucose (Fingerstick) 241 mg/dL (70-99) 263 mg/dL (70-99) 80 mg/dL (70-99) White Blood Count 6.4 x10^3/uL (4.0-11.0) Red Blood Count 3.56 x10^6/uL (3.50-5.40) Hemoglobin 10.0 g/dL (12.0-15.5) Hematocrit 30.4 % (36.0-47.0) Mean Corpuscular Volume 86 fL (79-100) Mean Corpuscular Hemoglobin 28 pg (25-35) Mean Corpuscular Hemoglobin Concent 33 g/dL (31-37) Red Cell Distribution Width 15.7 % (11.5-14.5) Platelet Count 159 x10^3/uL (140-400) Neutrophils (%) (Auto) 54 % (31-73) Lymphocytes (%) (Auto) 36 % (24-48) Monocytes (%) (Auto) 7 % (0-9) Eosinophils (%) (Auto) 2 % (0-3) Basophils (%) (Auto) 1 % (0-3) Neutrophils # (Auto) 3.4 x10^3uL (1.8-7.7) Lymphocytes # (Auto) 2.3 x10^3/uL (1.0-4.8) Monocytes # (Auto) 0.5 x10^3/uL (0.0-1.1) Eosinophils # (Auto) 0.1 x10^3/uL (0.0-0.7) Basophils # (Auto) 0.0 x10^3/uL (0.0-0.2) Sodium Level 141 mmol/L (136-145) Potassium Level 4.1 mmol/L (3.5-5.1) Chloride Level 104 mmol/L (98-107) Carbon Dioxide Level 31 mmol/L (21-32) Anion Gap 6 (6-14) Blood Urea Nitrogen 64 mg/dL (7-20) Creatinine 2.5 mg/dL (0.6-1.0) Estimated GFR (Cockcroft-Gault) 22.0 BUN/Creatinine Ratio 26 (6-20) Glucose Level 107 mg/dL (70-99) Calcium Level 9.1 mg/dL (8.5-10.1) Magnesium Level 2.6 mg/dL (1.8-2.4) Total Bilirubin 0.2 mg/dL (0.2-1.0) Aspartate Amino Transf (AST/SGOT) 14 U/L (15-37) Alanine Aminotransferase (ALT/SGPT) 14 U/L (14-59) Alkaline Phosphatase 47 U/L (46-116) Total Protein 6.5 g/dL (6.4-8.2) Albumin 3.1 g/dL (3.4-5.0) Albumin/Globulin Ratio 0.9 (1.0-1.7) Test 08/14/17 11:45 08/14/17 16:32 08/14/17 20:56 08/15/17 07:46 Glucose (Fingerstick) 151 mg/dL (70-99) 180 mg/dL (70-99) 287 mg/dL (70-99) 83 mg/dL (70-99) Sodium Level 140 mmol/L (136-145) Potassium Level 4.0 mmol/L (3.5-5.1) Chloride Level 103 mmol/L (98-107) Carbon Dioxide Level 32 mmol/L (21-32) Anion Gap 5 (6-14) Blood Urea Nitrogen 64 mg/dL (7-20) Creatinine 2.5 mg/dL (0.6-1.0) Estimated GFR (Cockcroft-Gault) 22.0 Glucose Level 83 mg/dL (70-99) Calcium Level 8.9 mg/dL (8.5-10.1) Test 08/15/17 11:29 Glucose (Fingerstick) 215 mg/dL (70-99) Hospital Course Pt was admitted after nearly fainting at home. She fell into her daughter's arms. Pt has done well here. She was seen by cardiology who felt changing her metolazone to Lasix might help. That is the only change that was made here. She will need to f/u with her PCP and food and nutrition services supervisor about the med change. Pt advised to also consider taking her meclizine on a scheduled basis, as that worked well for her here in the hospital. Her renal function stayed stable at 2.5. Condition at Discharge: Stable Home Meds Active Scripts Meclizine Hcl (MECLIZINE HCL) 25 Mg Tablet, 1 TAB PO PRN TID for DIZZINESS, #90 TAB 0 Refills NEXT DOSE DUE: DATE: TODAY TIME: IF NEEDED Prov:BROCKERT,HAL G MD 08/15/17 Furosemide (FUROSEMIDE) 40 Mg Tablet, 40 MG PO DAILY, #30 TAB 0 Refills Prov:HAL KOHLER MD 08/15/17 Trazodone Hcl (TRAZODONE HCL) 50 Mg Tablet, 50 MG PO HS for 90 Days, #90 TAB Prov:WARD ALCANTAR DO 04/23/17 Ropinirole Hcl (REQUIP) 0.25 Mg Tablet, 0.25 MG PO HS for 90 Days, #90 TAB 1 Refill Prov:WARD ALCANTAR DO 04/23/17 Pantoprazole Sodium (PANTOPRAZOLE SODIUM) 40 Mg Tablet.dr, 40 MG PO DAILYAC for 90 Days, #90 TAB 1 Refill Prov:WARD ALCANTAR DO 04/23/17 Lidocaine (Lidocaine) 1 Each Adh..patch, 1 PATCH TD DAILY for 60 Days, #60 PATCH Prov:WARD ALCANTAR DO 04/23/17 Allopurinol (ALLOPURINOL) 100 Mg Tablet, 1 TAB PO DAILY, #90 TAB 1 Refill Prov:WARD ALCANTAR DO 04/07/17 Reported Medications Ipratropium/Albuterol Sulfate (DUONEB 0.5-3(2.5) MG/3 ML) 3 Ml Ampul.neb, 3 ML NEB PRN Q6HRS Y for SHORTNESS OF BREATH LAST DOSE GIVEN: DATE: TIME: AM NEXT DOSE DUE: DATE: TODAY TIME: AFTERNOON 03/27/17 Atorvastatin Calcium (ATORVASTATIN CALCIUM) 10 Mg Tablet, 1 TAB PO HS LAST DOSE GIVEN: DATE: YESTERDAY TIME: AT BEDTIME NEXT DOSE DUE: DATE: TODAY TIME: AT BEDTIME 03/27/17 Acetaminophen (TYLENOL) 325 Mg Tablet, 2 TAB PO PRN Q6HRS Y for PAIN NEXT DOSE DUE: DATE: TODAY TIME: IF NEEDED 03/27/17 Sennosides/Docusate Sodium (SENOKOT-S TABLET) 1 Each Tablet, 1 TAB PO BID LAST DOSE GIVEN: DATE: TODAY TIME: AM NEXT DOSE DUE: DATE: TODAY TIME: PM 03/27/17 Nebivolol Hcl (BYSTOLIC) 5 Mg Tablet, 1 TAB PO HS LAST DOSE GIVEN: DATE: YESTEDAY TIME: AT BEDTIME NEXT DOSE DUE: DATE: TODAY TIME: AT BEDTIME 03/27/17 Magnesium Oxide (MAGNESIUM OXIDE) 400 Mg Tablet, 1 TAB PO DAILY LAST DOSE GIVEN: DATE: TODAY TIME: AM NEXT DOSE DUE: DATE: TOMORROW TIME: AM 03/27/17 Glimepiride (GLIMEPIRIDE) 4 Mg Tablet, 1 TAB PO DAILY LAST DOSE GIVEN: DATE: TODAY TIME: AM NEXT DOSE DUE: DATE: TOMORROW TIME: AM 03/27/17 Nitroglycerin (NITROGLYCERIN SubLingual) 0.4 Mg Tab.subl, 0.4 MG SL PRN Q5MIN Y for CHEST PAIN NEXT DOSE DUE: DATE: TODAY TIME: IF NEEDED NEXT DOSE DUE: DATE: as needed for chest pain TIME: 12/19/16 Alprazolam (XANAX) 0.25 Mg Tablet, 0.25 MG PO PRN TID Y for ANXIETY / AGITATION NEXT DOSE DUE: DATE: TODAY TIME: IF NEEDED NEXT DOSE DUE: DATE: 01/02/17 TIME: 0912/17/16 Insulin Detemir (LEVEMIR) 100 Unit/1 Ml Vial, 20 UNIT SQ BID for High Blood sugar (Long acting) LAST DOSE GIVEN: DATE: YESTER TIME: AT BEDTIME NEXT DOSE DUE: DATE: TODAY TIME: AT BEDTIME 12/17/16 Apixaban (ELIQUIS) 2.5 Mg Tablet, 2.5 MG PO BID for Blood thinner LAST DOSE GIVEN: DATE: TODAY TIME: AM NEXT DOSE DUE: DATE: TODAY TIME: PM 12/17/16 Cholecalciferol (Vitamin D3) (VITAMIN D) 2,000 Unit Capsule, 5000 UNIT PO WEEKLY for Supplement/Vitamin Continue taking on your weekly schedule DATE: 04/18/17 TIME: 0900 NEXT DOSE DUE: DATE: 04/25/17 TIME: 0900 12/17/16 Discontinued Reported Medications Furosemide (FUROSEMIDE) 40 Mg Tablet, 1 TAB PO DAILY LAST DOSE GIVEN: DATE: TODAY TIME: AM NEXT DOSE DUE: DATE: TOMORROW TIME: AM 03/27/17 Discontinued Scripts Metolazone (METOLAZONE) 2.5 Mg Tablet, 2.5 MG PO 3X/WEEK for 90 Days, #180 TAB 3 Refills Prov:WARD ALCANTAR DO 04/23/17 Inpatient Meds Current Medications Ondansetron HCl (Zofran) 4 mg PRN Q4HRS PRN IV NAUSEA/VOMITING; Start 08/12/17 at 16:15; Stop 08/13/17 at 16:14; Status DC Fentanyl Citrate (Fentanyl 2ml Vial) 50 mcg PRN Q2HR PRN IV PAIN; Start at 16:15; Stop 08/13/17 at 16:14; Status DC Acetaminophen (Tylenol) 650 mg PRN Q4HRS PRN PO FEVER; Start 08/12/17 at 16:15 ; Stop 08/12/17 at 18:45; Status DC Sodium Chloride 1,000 ml @ 50 mls/hr 1X ONCE IV Last administered on at 17:34; Start 08/12/17 at 16:30; Stop 08/13/17 at 12:29; Status DC Acetaminophen (Tylenol) 650 mg PRN Q6HRS PRN PO PAIN Last administered on at 21:29; Start 08/12/17 at 18:30 Allopurinol (Zyloprim) 100 mg DAILY PO Last administered on 08/15/17at 08:58; Start 08/13/17 at 09:00 Alprazolam (Xanax) 0.25 mg PRN TID PRN PO ANXIETY / AGITATION; Start 08/12/17 at 18:30 Apixaban (Eliquis) 2.5 mg BID PO Last administered on 08/15/17at 08:57; Start at 21:00 Atorvastatin Calcium (Lipitor) 10 mg HS PO Last administered on 08/14/17at 20:49 ; Start 08/12/17 at 21:00 Albuterol/ Ipratropium (Duoneb) 3 ml PRN Q6HRS PRN NEB SHORTNESS OF BREATH; Start 08/12/17 at 18:30 Lidocaine (Lidoderm) 1 patch DAILY TD Last administered on 08/15/17at 09:01; Start 08/13/17 at 09:00 Magnesium Oxide (Magnesium Oxide) 400 mg DAILY PO Last administered on at 08:58; Start 08/13/17 at 09:00 Nitroglycerin (Nitrostat) 0.4 mg PRN Q5MIN PRN SL CHEST PAIN; Start 08/12/17 at 18:30 Metoprolol Tartrate (Lopressor) 25 mg BID PO ; Start 08/12/17 at 21:00; Stop 05/20 at 21:00; Status DC Ropinirole HCl (Requip) 0.25 mg HS PO Last administered on 08/14/17at 20:49; Start 08/12/17 at 21:00 Senna/Docusate Sodium (Senna Plus) 1 tab BID PO Last administered on 08/15/17at 08:58; Start 08/12/17 at 21:00 Trazodone HCl (Desyrel) 50 mg HS PO Last administered on 08/14/17at 20:49; Start 08/12/17 at 21:00 Vitamin D (Vitamin D3) 5,000 unit WEEKLY PO Last administered on 08/13/17at 09: 10; Start 08/13/17 at 09:00 Glimepiride (Amaryl) 4 mg DAILY PO Last administered on 08/15/17at 08:57; Start 08/13/17 at 09:00 Insulin Detemir (Levemir) 20 units BID SQ Last administered on 08/13/17at 09:04 ; Start 08/12/17 at 21:00; Stop 08/13/17 at 14:28; Status DC Meclizine HCl (Antivert) 25 mg PRN TID PRN PO DIZZINESS; Start 08/12/17 at 18: 45; Stop 08/13/17 at 09:45; Status DC Metoprolol Tartrate (Lopressor) 25 mg BID PO Last administered on 08/15/17at 08: 58; Start 08/12/17 at 21:00 Pantoprazole Sodium (Protonix) 40 mg DAILYAC PO Last administered on 08/15/17at 08:05; Start 08/13/17 at 07:30 Meclizine HCl (Antivert) 25 mg TID PO Last administered on 08/15/17at 14:46; Start 08/13/17 at 10:00 Insulin Detemir (Levemir) 20 units BID SQ Last administered on 08/15/17at 09:30 ; Start 08/13/17 at 14:28 Furosemide (Lasix) 40 mg DAILY PO Last administered on 08/15/17at 08:57; Start 08/14/17 at 09:00 Multi-Ingredient Ointment (Analgesic Fate) 1 lucio PRN QID PRN TP MUSCLE PAIN; Start 08/14/17 at 12:30 Calcium Carbonate/ Glycine (Oscal) 500 mg TIDAFTMEAL PO ; Start 08/15/17 at 09: 00; Stop 08/15/17 at 09:00; Status DC Active Scripts Active Meclizine Hcl 25 Mg Tablet 1 Tab PO PRN TID NEXT DOSE DUE: DATE: TODAY TIME: IF NEEDED Furosemide 40 Mg Tablet 40 Mg PO DAILY Trazodone Hcl 50 Mg Tablet 50 Mg PO HS 90 Days Requip (Ropinirole Hcl) 0.25 Mg Tablet 0.25 Mg PO HS 90 Days Pantoprazole Sodium 40 Mg Tablet.dr 40 Mg PO DAILYAC 90 Days Lidocaine 1 Each Adh..patch 1 Patch TD DAILY 60 Days Allopurinol 100 Mg Tablet 1 Tab PO DAILY Reported Duoneb 0.5-3(2.5) Mg/3 Ml (Albuterol/Ipratropium) 3 Ml Ampul.neb 3 Ml NEB PRN Q6HRS PRN LAST DOSE GIVEN: DATE: TODAY TIME: AM NEXT DOSE DUE: DATE: TODAY TIME: AFTERNOON Atorvastatin Calcium 10 Mg Tablet 1 Tab PO HS LAST DOSE GIVEN: DATE: YESTER TIME: AT BEDTIME NEXT DOSE DUE: DATE: TODAY TIME: AT BEDTIME Tylenol (Acetaminophen) 325 Mg Tablet 2 Tab PO PRN Q6HRS PRN NEXT DOSE DUE: DATE: TODAY TIME: IF NEEDED Senokot-S Tablet (Sennosides/Docusate Sodium) 1 Each Tablet 1 Tab PO BID LAST DOSE GIVEN: DATE: TODAY TIME: AM NEXT DOSE DUE: DATE: TODAY TIME: PM Bystolic (Nebivolol Hcl) 5 Mg Tablet 1 Tab PO HS LAST DOSE GIVEN: DATE: YESTEDAY TIME: AT BEDTIME NEXT DOSE DUE: DATE: TODAY TIME: AT BEDTIME Magnesium Oxide 400 Mg Tablet 1 Tab PO DAILY LAST DOSE GIVEN: DATE: TODAY TIME: AM NEXT DOSE DUE: DATE: TOMORROW TIME: AM Glimepiride 4 Mg Tablet 1 Tab PO DAILY LAST DOSE GIVEN: DATE: TODAY TIME: AM NEXT DOSE DUE: DATE: TOMORROW TIME: AM NITROGLYCERIN SubLingual (Nitroglycerin) 0.4 Mg Tab.subl 0.4 Mg SL PRN Q5MIN PRN NEXT DOSE DUE: DATE: TODAY TIME: IF NEEDED NEXT DOSE DUE: DATE: as needed for chest pain TIME: Xanax (Alprazolam) 0.25 Mg Tablet 0.25 Mg PO PRN TID PRN NEXT DOSE DUE: DATE: TODAY TIME: IF NEEDED NEXT DOSE DUE: DATE: 01/02/17 TIME: 0900 Levemir (Insulin Detemir) 100 Unit/1 Ml Vial 20 Unit SQ BID LAST DOSE GIVEN: DATE: YESTERDAY TIME: AT BEDTIME NEXT DOSE DUE: DATE: TODAY TIME: AT BEDTIME Eliquis (Apixaban) 2.5 Mg Tablet 2.5 Mg PO BID LAST DOSE GIVEN: DATE: TODAY TIME: AM NEXT DOSE DUE: DATE: TODAY TIME: PM Vitamin D (Cholecalciferol (Vitamin D3)) 2,000 Unit Capsule 5,000 Unit PO WEEKLY Continue taking on your weekly schedule DATE: 04/18/17 TIME: 0900 NEXT DOSE DUE: DATE: 04/25/17 TIME: 0900 Activity: as tolerated Diet: Cardiac, Consistent Carbohydrate Consulting Physician: CAROL ALLEN Jr, MD Consulting Speciality: Cardiac Follow-up Plan F/u with PCP next week F/u with nephrology in 2-3 weeks F/u with cardiology in 1-2 weeks HAL KOHLER MD Aug 15, 2017 15:49
== END 2017-08-15 16:00 | disposition home or self-care (01) | DRG 292 ==
LOC: ER 13:58 → ICU 15:49
PROVIDERS: ADMIT Family Medicine; ATTEND Family Medicine
DX: I13.0 Hypertensive heart and chronic kidney disease with heart failure and stage 1 through stage 4 chronic kidney disease, or unspecified chronic kidney disease (principal); N17.9 Acute kidney failure, unspecified; E11.22 Type 2 diabetes mellitus with diabetic chronic kidney disease; E11.51 Type 2 diabetes mellitus with diabetic peripheral angiopathy without gangrene; I49.5 Sick sinus syndrome; I48.0 Paroxysmal atrial fibrillation; E78.00 Pure hypercholesterolemia, unspecified; G25.81 Restless legs syndrome; E78.5 Hyperlipidemia, unspecified; I50.32 Chronic diastolic (congestive) heart failure; I25.10 Atherosclerotic heart disease of native coronary artery without angina pectoris; K21.9 Gastro-esophageal reflux disease without esophagitis; M54.2 Cervicalgia; M19.90 Unspecified osteoarthritis, unspecified site; N18.9 Chronic kidney disease, unspecified; M10.9 Gout, unspecified; R55 Syncope and collapse; Z96.642 Presence of left artificial hip joint; Z96.653 Presence of artificial knee joint, bilateral; Z79.01 Long term (current) use of anticoagulants; Z79.4 Long term (current) use of insulin; Z86.718 Personal history of other venous thrombosis and embolism; Z86.73 Personal history of transient ischemic attack (TIA), and cerebral infarction without residual deficits; Z90.49 Acquired absence of other specified parts of digestive tract; Z91.81 History of falling; Z95.0 Presence of cardiac pacemaker; Z95.5 Presence of coronary angioplasty implant and graft; Z87.81 Personal history of (healed) traumatic fracture; Z88.6 Allergy status to analgesic agent; Z88.1 Allergy status to other antibiotic agents; Z88.0 Allergy status to penicillin; Z88.7 Allergy status to serum and vaccine; Z88.8 Allergy status to other drugs, medicaments and biological substances; Z82.49 Family history of ischemic heart disease and other diseases of the circulatory system
CPT/HCPCS: 36415; 71045; 80048; 80053; 80076; 81001; 82947; 83690; 83735; 84484; 85025; 87086; 87641; 93005; J1815; J8597; 97110; 97530; 97535; 99285-25; J7030

== ENCOUNTER → 2017-10-09 | Outpatient (CLI) | payer MEDICARE, OTHER ==
[~2017-10-09] MED LIST changes: -FERR-26 PO; +FERR325T14 PO; +WARF-31 PO; -WARF5TAB7 PO
--- NOTE | 2017-10-09 16:13 | RAD ---
EXAM: Chest 2 views. HISTORY: Shortness of breath. COMPARISON: 08/12/2017. FINDINGS: Frontal and lateral views of the chest are obtained. A left-sided pacemaker has 3 leads in the right atrium and right ventricle. Instrumented anterior cervical discectomy and fusion changes are noted. Postsurgical changes are noted along the anterior abdominal wall. There are no confluent infiltrates. There is no pneumothorax or pleural effusion. The heart is at the upper limits of normal size. There are atherosclerotic calcifications of the aorta. IMPRESSION: 1. No confluent infiltrates.
== END | disposition home or self-care (01) ==
LOC: EDSEX 12:02 → DXRAD 12:02
PROVIDERS: ATTEND Family Medicine
DX: R06.02 Shortness of breath (principal); I70.0 Atherosclerosis of aorta; I13.0 Hypertensive heart and chronic kidney disease with heart failure and stage 1 through stage 4 chronic kidney disease, or unspecified chronic kidney disease; N18.4 Chronic kidney disease, stage 4 (severe); E11.22 Type 2 diabetes mellitus with diabetic chronic kidney disease; I50.32 Chronic diastolic (congestive) heart failure; N17.9 Acute kidney failure, unspecified; Z79.4 Long term (current) use of insulin
CPT/HCPCS: 71046

== ENCOUNTER → 2017-10-12 | Outpatient (CLI) | payer MEDICARE, OTHER ==
[2017-10-12 13:21] LABS: CREATININE 2.1 mg/dL (0.6-1.0); MAGNESIUM 1.9 mg/dL (1.8-2.4); POTASSIUM 4.4 mmol/L (3.5-5.1)
== END | disposition home or self-care (01) ==
LOC: PMG 12:18
PROVIDERS: ATTEND Family Medicine
DX: R06.02 Shortness of breath (principal)
CPT/HCPCS: 36415; 80048; 83735

== ENCOUNTER 2017-10-20 10:31 | Emergency (ER) | payer MEDICARE, OTHER ==
[~2017-10-20] VITALS: Ht 163.8 cm; Wt 78.2 kg
--- NOTE | 2017-10-20 10:54 | EKG ---
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
[2017-10-20] MEDS ORDERED: ASPIRIN 81 MG TAB.CHEW PO ONE (11:10)
--- NOTE | 2017-10-20 11:15 | RAD ---
EXAM: Chest, 2 views. HISTORY: Chest pain. COMPARISON: 10/09/2017 FINDINGS: Frontal and lateral views of the chest are obtained. There is no infiltrate, effusion or pneumothorax. The heart is mildly enlarged. There is a cardiac pacemaker with leads in expected position. IMPRESSION: No acute pulmonary finding. Electronically signed by: Bertha Castrejon MD (10/20/2017 11:12 AM) [place] [id number]
[2017-10-20 11:20] LABS: BASO % 0 % (0-3); EOS # 0.2 x10^3/uL (0.0-0.7); EOS % 3 % (0-3); HEMATOCRIT 34.6 % (36.0-47.0); HEMOGLOBIN 11.1 g/dL (12.0-15.5); LYMPH # 2.2 x10^3/uL (1.0-4.8); LYMPH % 30 % (24-48); MEAN CORPUSCULAR HEMOGLOBIN 29 pg (25-35); MEAN CORPUSCULAR HGB CONC 32 g/dL (31-37); MEAN CORPUSCULAR VOLUME 89 fL (79-100); MONO # 0.4 x10^3/uL (0.0-1.1); MONO % 6 % (0-9); NEUT # 4.5 x10^3uL (1.8-7.7); NEUT % 62 % (31-73); PLATELET COUNT 188 x10^3/uL (140-400); RED BLOOD COUNT 3.88 x10^6/uL (3.50-5.40); RED CELL DISTRIBUTION WIDTH 17.2 % (11.5-14.5); WHITE BLOOD COUNT 7.3 x10^3/uL (4.0-11.0)
[2017-10-20 11:35] LABS: CALCIUM 9.6 mg/dL (8.5-10.1); GFR 28.5; POTASSIUM 4.1 mmol/L (3.5-5.1)
[2017-10-20] MEDS ORDERED: ACETAMINOPHEN 500 MG TABLET PO ONE (12:00)
[2017-10-20] MEDS ORDERED: METOPROLOL TARTRATE 5 MG/5 ML VIAL. IV ONE (12:15)
[2017-10-20 12:28] VITALS: BP 124/83
--- NOTE | 2017-10-20 12:58 | PHYS DOC ---
Past History Past Medical History: A-Fib, CHF, Diabetes, Heart Disease, Hip Fracture, Hypertension, Pneumonia Past Surgical History: Appendectomy, Cholecystectomy, Hip Replacement, Knee Replacement, Pacemaker Alcohol Use: None Drug Use: None Adult General Chief Complaint Chief Complaint: CHEST PAIN HPI HPI Patient is a 87 year old F who presents with constant central chest pressure that started last night while she was sorting through papers. She feels that her symptoms have been relatively stable. She does describe worsening with activity and improved with rest. She has associated shortness of breath and diaphoresis. She does have risk factors include hypertension, diabetes and hyperlipidemia. 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 She did have recent workup which was negative. She feels that her pain is still present and currently radiating down her left arm into her hand. She did try breathing treatments at home without success. Review of Systems Review of Systems Constitutional: Denies fever or chills [] Eyes: Denies change in visual acuity, redness, or eye pain [] HENT: Denies nasal congestion or sore throat [] Respiratory: Negative except history of present illness Cardiovascular: No additional information not addressed in HPI [] GI: Denies abdominal pain, nausea, vomiting, bloody stools or diarrhea [] : Denies dysuria or hematuria [] Musculoskeletal: Denies back pain or joint pain [] Integument: Denies rash or skin lesions [] Neurologic: Denies headache, focal weakness or sensory changes [] Endocrine: Denies polyuria or polydipsia [] All other systems were reviewed and found to be within normal limits, except as documented in this note. Family History Family History No pertinent family medical history was reported Current Medications Current Medications Current Medications Medications (Trade) Dose Ordered Sig/Ruel Start Time Stop Time Status Last Admin Dose Admin Acetaminophen (Tylenol) 1,000 mg 1X ONCE 10/20/17 12:00 10/20/17 12:01 DC 10/20/17 12:18 1,000 MG Aspirin (Children'S Aspirin) 324 mg 1X ONCE 10/20/17 11:10 10/20/17 11:11 DC 10/20/17 11:00 324 MG Metoprolol Tartrate (Lopressor Vial) 5 mg 1X ONCE 10/20/17 12:15 10/20/17 12:16 DC 10/20/17 12:19 5 MG Allergies Allergies Allergies Coded Allergies Type Severity Reaction Last Updated Verified Influenza Virus Vaccines Allergy Intermediate GENERALIZED BODY/JOINT ACHES Yes Penicillins Allergy Intermediate NAUSEA/VOMITING 10/20/17 Yes amoxicillin Allergy Intermediate Nausea/Vomiting 10/20/17 Yes cephalexin Allergy Intermediate Nausea/Vomiting 10/20/17 Yes clavulanic acid Allergy Intermediate Nausea/Vomiting 10/20/17 Yes metoclopramide Allergy Intermediate NAUSEA/VOMITING 10/20/17 Yes Physical Exam Physical Exam Constitutional: Well developed, well nourished, no acute distress, non-toxic appearance. [] HENT: Normocephalic, atraumatic, Eyes: EOMI, conjunctiva normal, no discharge. [] Neck: Normal range of motion, no tenderness, supple, no stridor. [] Cardiovascular: Tachycardia, peripheral pulses palpable. Lungs & Thorax: Bilateral breath sounds clear to auscultation [] Abdomen: Bowel sounds normal, soft, no tenderness, no masses, no pulsatile masses. [] Skin: Warm, dry, no erythema, Back: No tenderness, no CVA tenderness. [] Extremities: No tenderness, no cyanosis, no clubbing, ROM intact, no edema. [] Neurologic: Alert and oriented X 3, normal motor function, normal sensory function, no focal deficits noted. [] Psychologic: Affect normal, judgement normal, mood normal. [] Current Patient Data Vital Signs Vital Signs Date Time Temp Pulse Resp B/P (MAP) Pulse Ox O2 Delivery O2 Flow Rate FiO2 10/20/17 12:28 119 13 124/83 (97) 99 Room Air 10/20/17 10:35 98.3 Lab Results Laboratory Tests Test 10/20/17 10:55 10/20/17 11:44 White Blood Count 7.3 x10^3/uL (4.0-11.0) Red Blood Count 3.88 x10^6/uL (3.50-5.40) Hemoglobin 11.1 g/dL (12.0-15.5) L Hematocrit 34.6 % (36.0-47.0) L Mean Corpuscular Volume 89 fL (79-100) Mean Corpuscular Hemoglobin 29 pg (25-35) Mean Corpuscular Hemoglobin Concent 32 g/dL (31-37) Red Cell Distribution Width 17.2 % (11.5-14.5) H Platelet Count 188 x10^3/uL (140-400) Neutrophils (%) (Auto) 62 % (31-73) Lymphocytes (%) (Auto) 30 % (24-48) Monocytes (%) (Auto) 6 % (0-9) Eosinophils (%) (Auto) 3 % (0-3) Basophils (%) (Auto) 0 % (0-3) Neutrophils # (Auto) 4.5 x10^3uL (1.8-7.7) Lymphocytes # (Auto) 2.2 x10^3/uL (1.0-4.8) Monocytes # (Auto) 0.4 x10^3/uL (0.0-1.1) Eosinophils # (Auto) 0.2 x10^3/uL (0.0-0.7) Basophils # (Auto) 0.0 x10^3/uL (0.0-0.2) Sodium Level 141 mmol/L (136-145) Potassium Level 4.1 mmol/L (3.5-5.1) Chloride Level 104 mmol/L (98-107) Carbon Dioxide Level 28 mmol/L (21-32) Anion Gap 9 (6-14) Blood Urea Nitrogen 32 mg/dL (7-20) H Creatinine 2.0 mg/dL (0.6-1.0) H Estimated GFR (Cockcroft-Gault) 28.5 Glucose Level 152 mg/dL (70-99) H Calcium Level 9.6 mg/dL (8.5-10.1) Creatine Kinase 117 U/L (26-192) Troponin I Quantitative < 0.017 ng/mL (0-0.055) JX-Dtq-P-Type Natriuretic Peptide 4937 pg/mL (0-449) H D-Dimer (Tigist) 0.47 mg/L (0.00-0.50) EKG EKG Regular wide complex tachycardia Radiology/Procedures Radiology/Procedures Chest x-ray two-view - no acute disease Course & Med Decision Making Course & Med Decision Making Pertinent Labs and Imaging studies reviewed. (See chart for details) Cardiology at [facility] was contacted initially by phone. Her case was reviewed including history, vital signs, physical exam, labs, EKG and treatment in the emergency room. It was recommended that she be transferred to a higher level of care if she was admitted. 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 Her case was reviewed including all above components. Transfer was recommended for further evaluation including pacemaker interrogation. Dragon Disclaimer Dragon Disclaimer This electronic medical record was generated, in whole or in part, using a voice recognition dictation system. Departure Departure: Impression: Primary Impression: Chest pain Disposition: 05 XFER OTHER Condition: STABLE Referrals: PATRICIA COOPER MD (PCP) Problem Qualifiers Primary Impression: Chest pain Chest pain type: unspecified Qualified Codes: R07.9 - Chest pain, unspecified ESTRELLA NAQVI MD Oct 20, 2017 12:58
== END 2017-10-20 13:20 | disposition short-term general hospital (02) ==
LOC: ER 10:31
DX: R07.9 Chest pain, unspecified (principal); I48.91 Unspecified atrial fibrillation; I11.0 Hypertensive heart disease with heart failure; I50.9 Heart failure, unspecified; E11.9 Type 2 diabetes mellitus without complications; Z95.0 Presence of cardiac pacemaker; Z88.0 Allergy status to penicillin; Z88.1 Allergy status to other antibiotic agents; Z88.8 Allergy status to other drugs, medicaments and biological substances; Z88.7 Allergy status to serum and vaccine
CPT/HCPCS: 36415; 71046; 80048; 82550; 83880; 84484; 85025; 85379; 93005; 96374; 99285; J3490

== ENCOUNTER → 2017-11-16 | Outpatient (CLI) | payer MEDICARE, OTHER ==
[2017-10-20 12:28] VITALS: BP 124/83
--- NOTE | 2017-11-16 12:06 | RAD ---
Right hip, 2 views, 11/16/2017: History: Fall, pain A right hip prosthesis is in place in satisfactory position. No fracture or dislocation is identified. There are mild degenerative changes in lower lumbar spine. Arterial calcifications are present. IMPRESSION: 1. A right hip prosthesis is in place. 2. No acute abnormality is detected.
== END | disposition home or self-care (01) ==
LOC: DXRAD 11:35
PROVIDERS: ATTEND Family Medicine
DX: Z47.1 Aftercare following joint replacement surgery (principal); I13.0 Hypertensive heart and chronic kidney disease with heart failure and stage 1 through stage 4 chronic kidney disease, or unspecified chronic kidney disease; E11.22 Type 2 diabetes mellitus with diabetic chronic kidney disease; I50.32 Chronic diastolic (congestive) heart failure; N18.4 Chronic kidney disease, stage 4 (severe); Z96.641 Presence of right artificial hip joint; Z91.81 History of falling
CPT/HCPCS: 73502

== ENCOUNTER 2017-12-09 13:09 | Inpatient (IN) | payer MEDICARE, OTHER ==
[~2017-12-09] VITALS: Ht 162.6 cm; Wt 84.4 kg
[~2017-12-09 13:09] MED LIST changes: -WARF2TAB7 PO; +WARF2TAB96 PO
--- NOTE | 2017-12-09 13:27 | EKG ---
[address] [address] Test Date: 2017-12-09 Test Time: 13:22:12 Pat Name: CARINA TREADWELL Department: Room: Gender: F Rn Operating Room: JOSETTE : 1930 Requested By: BRENDA DOMÍNGUEZ Order Number: [id number] Reading MD: Measurements Intervals [place] Rate: 76 P: -90 IL: 212 QRS: -78 QRSD: 208 T: 94 QT: 470 QTc: 528 Interpretive Statements SINUS RHYTHM ABNORMAL LEFT AXIS DEVIATION LEFT ANTERIOR FASCICULAR BLOCK NON SPECIFIC INTRAVENTRICULAR BLOCK ABNORMAL ECG RI6.01 Compared to ECG 10/20/2017 10:41:06 Left-axis deviation now present Left anterior fascicular block now present Ventricular-paced complex(es) or rhythm no longer present
[2017-12-09] MEDS ORDERED: ASPIRIN 81 MG TAB.CHEW PO ONE (13:30)
[2017-12-09 15:46] LABS: HEMATOCRIT 34.4 % (36.0-47.0); HEMOGLOBIN 11.2 g/dL (12.0-15.5); LYMPH % 23 % (24-48); MEAN CORPUSCULAR HEMOGLOBIN 28 pg (25-35); MEAN CORPUSCULAR HGB CONC 33 g/dL (31-37); MEAN CORPUSCULAR VOLUME 88 fL (79-100); MONO % 7 % (0-9); NEUT % 67 % (31-73); PLATELET COUNT 153 x10^3/uL (140-400); RED BLOOD COUNT 3.92 x10^6/uL (3.50-5.40); RED CELL DISTRIBUTION WIDTH 15.7 % (11.5-14.5)
[2017-12-09 15:47] LABS: BASO # 0.1 x10^3/uL (0.0-0.2); BASO % 1 % (0-3); EOS # 0.1 x10^3/uL (0.0-0.7); EOS % 1 % (0-3); LYMPH # 1.6 x10^3/uL (1.0-4.8); MONO # 0.5 x10^3/uL (0.0-1.1); NEUT # 4.7 x10^3uL (1.8-7.7)
[2017-12-09 15:51] LABS: ALBUMIN 3.5 g/dL (3.4-5.0); ALBUMIN/GLOBULIN RATIO 0.9 (1.0-1.7); CALCIUM 8.9 mg/dL (8.5-10.1); GFR 28.5; MAGNESIUM 1.8 mg/dL (1.8-2.4); POTASSIUM 3.8 mmol/L (3.5-5.1); TOTAL BILIRUBIN 0.3 mg/dL (0.2-1.0); TOTAL PROTEIN 7.4 g/dL (6.4-8.2)
--- NOTE | 2017-12-09 16:03 | RAD ---
Chest radiograph 12/09/2017 1:30 PM INDICATION: Shortness of breath COMPARISON: Chest radiograph October 20, 2017 TECHNIQUE: Portable upright frontal view of the chest is provided. FINDINGS: The cardiomediastinal silhouette is within normal limits. Left chest wall cardiac device is in similar position. There are no pleural effusions. There is no pulmonary vascular congestion. There is no pneumothorax. The lungs are clear. Anterior cervical discectomy and fusion hardware is identified at C6-C7. IMPRESSION: No acute cardiopulmonary process. Electronically signed by: Yoko Peoples MD (12/09/2017 3:58 PM) [id number]
[2017-12-09 16:35] VITALS: BP 108/74
[2017-12-09 19:00] VITALS: BP 112/78
[2017-12-09] MEDS ORDERED: ALPRAZolam 0.25 MG TABLET PO PRN (20:30)
[2017-12-09] MEDS ORDERED: ACETAMINOPHEN 325 MG TABLET PO PRN (20:30)
[2017-12-09] MEDS ORDERED: IPRATRPIUM/ALBUTEROL 0.5/2.5MG 3 ML NEBU. NEB PRN (20:30)
[2017-12-09] MEDS ORDERED: NITROGLYCERIN SUBLINGUAL 0.4 MG BOTTLE OF 25. SL PRN (20:30)
[2017-12-09] MEDS ORDERED: MECLIZINE 12.5 MG TABLET. PO PRN (20:45)
[2017-12-09] MEDS: ATORVASTATIN CALCIUM 10 MG TABLET. PO SCH (21:31)
[2017-12-09] MEDS: rOPINIRole 0.25 MG TABLET. PO SCH (21:31)
[2017-12-09] MEDS: SENNOSIDES/DOCUSATE 8.6/50MG TABLET. PO SCH (21:31)
[2017-12-09] MEDS: traZODone 50 MG TABLET. PO SCH (21:31)
[2017-12-09] MEDS: METOPROLOL TART IMMED RELEASE 25 MG TABLET PO SCH (21:32)
[2017-12-09] MEDS: PATCH REMOVAL. MC SCH (21:33)
[2017-12-09] MEDS: INSULIN GLARGINE 300 UNITS/3 ML INSULN.PEN. SQ SCH (21:42)
[2017-12-09] MEDS: APIXABAN 2.5 MG TABLET PO SCH (21:44)
[2017-12-09 23:00] VITALS: BP 106/68
[2017-12-10] VITALS (7 sets, daily range): BP systolic 118–149; BP diastolic 70–85
[2017-12-10] MEDS: INSULIN GLARGINE 300 UNITS/3 ML INSULN.PEN. SQ SCH ×2 (09:00→22:10)
[2017-12-10] MEDS: LIDOCAINE (700MG/PATCH) PATCH. TD SCH (09:00)
[2017-12-10] MEDS ORDERED: METOPROLOL TART IMMED RELEASE 25 MG TABLET PO SCH ×2 (09:00)
[2017-12-10] MEDS: GLIMEPIRIDE 2 MG TABLET PO SCH (09:19)
[2017-12-10] MEDS: ALLOPURINOL 100 MG TABLET. PO SCH (09:19)
[2017-12-10] MEDS: METOPROLOL TART IMMED RELEASE 25 MG TABLET PO SCH ×2 (09:20→22:01)
[2017-12-10] MEDS: PANTOPRAZOLE 40 MG TABLET. PO SCH (09:20)
[2017-12-10] MEDS: FUROSEMIDE 40 MG TABLET PO SCH (09:20)
[2017-12-10] MEDS: SENNOSIDES/DOCUSATE 8.6/50MG TABLET. PO SCH ×2 (09:20→22:01)
[2017-12-10] MEDS: APIXABAN 2.5 MG TABLET PO SCH ×2 (09:20→22:01)
[2017-12-10] MEDS: MAGNESIUM OXIDE 400 MG TABLET PO SCH (09:20)
--- NOTE | 2017-12-10 11:45 | HP ---
ADMIT DATE: 12/09/2017 HISTORY OF PRESENT ILLNESS: The patient is an 87-year-old -[place] female patient, who basically came to the Emergency Room with increasing shortness of breath, weight gain, cough that is dry as well as some chest pain mostly in the left side of the chest and swelling in the legs together with weight gain of about 4 pounds according to her. All this started today. The shortness of breath started the day before yesterday. Denied any nausea or vomiting. Denied any diaphoresis, denied any radiation of the pain to the left side of the neck, left shoulder or left arm. She was seen in the Emergency Room and was evaluated extensively. Her first set of cardiac enzyme was found to be less than 0.017 and she has had chest x-ray, which basically showed the cardiomediastinal silhouette is within normal limits. Left chest wall cardiac devices in similar position. There are no pleural effusions. There is no pulmonary vascular congestion or pneumothorax. The lungs are clear anterior cervical diskectomy and fusion. Hardware identified at C6-C7. She was treated with IV Lasix and was admitted for further evaluation and treatment. PAST MEDICAL HISTORY: Significant for: 1. Coronary artery disease with recent unstable angina. 2. Essential hypertension. 3. Hypercholesterolemia. 4. Paroxysmal atrial fibrillation. 5. Chronic diastolic congestive heart failure. 6. Mild pulmonary hypertension. 7. Chronic anemia. 8. Generalized osteoarthritis. 9. Previous history of deep vein thrombosis. 10. Type 2 diabetes mellitus. 11. Gastroesophageal reflux disease. 12. Peripheral arterial disease. 13. History of stroke with no residual deficit. 14. Sick sinus syndrome. PAST SURGICAL HISTORY: Significant for bilateral total knee arthroplasty and permanent pacemaker placement. FAMILY HISTORY: There is no history of premature coronary artery disease. SOCIAL HISTORY: She lives at home with her son. She does not smoke, drink alcohol or use any recreational drugs. REVIEW OF SYSTEMS: As per history of present illness. ALLERGIES: She is allergic to PENICILLIN, AMOXICILLIN, CEPHALEXIN, AUGMENTIN, REGLAN and FLU VACCINE. MEDICATIONS: She is currently on following medications: She is on DuoNeb 0.5/2.5 mg in 3 mL by nebulizer every 6 hours, apixaban 2.5 mg twice a day, atorvastatin calcium 10 mg at bedtime, nitroglycerin 0.4 mg sublingually every 5 minutes as needed, nebivolol for Bystolic 5 mg daily, acetaminophen 650 mg every 6 hours, trazodone 50 mg at bedtime, alprazolam 0.25 mg 3 times a day as needed, Requip 0.25 mg at bedtime, furosemide 40 mg daily, magnesium oxide 400 mg daily, Senna-S 1 tablet twice a day, meclizine 25 mg 3 times a day and Protonix 40 mg once a day, Levemir insulin 20 units subcutaneously twice a day, glimepiride 4 mg daily, Lidoderm patch topically daily, cholecalciferol for vitamin D3 5000 international unit once a day, allopurinol 100 mg daily. PHYSICAL EXAMINATION: GENERAL: On arrival to the Emergency Room, she looked well and was clearly slightly tachypneic, but not pale, but no jaundice, cyanosis, or thyromegaly. No jugular venous distension. No limb edema. VITAL SIGNS: Her heart rate was 74, blood pressure was 108/74, temperature was 98.2, respiratory rate was 20, and oxygen saturation 100% on room air. HEAD, EYES, EARS, NOSE AND THROAT: Showed she is normocephalic, atraumatic. NECK: Supple. HEART: Showed normal first and second heart sounds with no gallop, rub or murmur. CHEST: There was some tenderness in the left side of the chest anteriorly, none in the midline on the right side has equal bilateral chest expansion, air entry, vesicular breath sounds. No crepitation or rhonchi. ABDOMEN: Distended, soft, nontender. NEUROLOGIC: She is awake, alert, responding appropriately. All cranial nerves intact. EXTREMITIES: She moves extremities without difficulty. She ambulates with a walker. LABORATORY DATA: On admission showed a white cell count 7000, hemoglobin 11, hematocrit 34, MCV 88 and platelet count of 153,000. His serum sodium of 141, potassium 3.8, chloride 103, bicarbonate 30, anion gap of 8, BUN 26, creatinine 2, estimated GFR was 28 mL per minute. Her glucose 147, calcium was 8.9, magnesium 1.8. Total bilirubin, AST, ALT, alkaline phosphatase were normal. Her first set of troponin was less than 0.07. Beta natriuretic peptide was 1218 and total protein was 7.4, albumin was 3.5. Lipase was 77. Her prothrombin time was 10, INR of 1. They stated her chest x-ray was unremarkable and showed no acute cardiopulmonary process. ASSESSMENT AND PLAN: The patient was treated with IV Lasix. I was admitted to do 2 more sets of cardiac enzyme, get Cardiology consult and decide the further management accordingly. JAMES MULTANI MD DR: ESTEPHANIA/deepak JOB#: [id number] / [id number]
[2017-12-10 12:03] LABS: CALCIUM 9.2 mg/dL (8.5-10.1); CREATININE 1.9 mg/dL (0.6-1.0); GFR 30.3; POTASSIUM 4.3 mmol/L (3.5-5.1)
--- NOTE | 2017-12-10 13:48 | PDOC2 ---
GABINO CHAIREZ [employer] 12/10/17 1348: CONSULT Date of Admission DATE: 12/10/17 TIME: 13:41 Referring Physician: Dr An Problem List Problems Medical Problems: (1) Chest pain Status: Acute History of Present Illness HISTORY OF PRESENT ILLNESS: The patient is a pleasant 87-year-old female who presented with chief complaint of shortness of breath and headache. She has a past medical history of chronic diastolic congestive heart failure, coronary artery disease, hypertension, paroxysmal atrial fibrillation and hyperlipidemia. She follows with Dr Dunn as her primary peanut salter. 2 days ago she started noticing that when she would walk in her house with her walker she was getting severely short of breath if she walks more than about 20 ft. That night she tried to lay down and sleep but could not catch any air so had to prop herself up in bed at almost a 90 degree angle. Her legs were swollen and she was up most of the night fixated on her breathing. The next morning when she tried to walk even in her room she had a hard time catching her breath so she called her daughter to take her to the hospital. She continues to have chest discomfort that is tender to the touch and has had since she had her pacemaker placed. She tells me that she went for cardiac catheterization with Dr. Dunn in September and he did not find any lesions that he needed to stent. She also had a SHADIA in November of this year at [facility] but she is unsure why. We will request both of these records. This morning she is feeling better. She has had multiple doses of IV Lasix and her legs are not as swollen however she does continue to feel like her voice is hoarse and she is slightly congested. PAST MEDICAL HISTORY: 1. Coronary artery disease with recent unstable angina. 2. Essential hypertension. 3. Hypercholesterolemia. 4. Paroxysmal atrial fibrillation. 5. Chronic diastolic congestive heart failure. 6. Pulmonary hypertension, mild. 7. Chronic anemia. 8. Arthritis. 9. Previous history of deep venous thrombosis. 10. Type 2 diabetes mellitus. 11. Gastroesophageal reflux disease. 12. Bilateral knee replacements. 13. Permanent pacemaker implantation. 14. History of peripheral arterial disease. 15. History of a stroke with no residual deficits. 16. Sick sinus syndrome. PAST SURGICAL HISTORY: 1. Status post permanent pacemaker implantation. 2. Status post knee replacements. FAMILY HISTORY: She does not know of any family history of premature coronary artery disease. SOCIAL HISTORY: She lives at home with her son. She does not smoke or drink alcohol. REVIEW OF SYSTEMS: Review of 10 organ systems is as per the history of present illness, otherwise negative. ALLERGIES: INCLUDE PENICILLIN, AMOXICILLIN, CEPHALEXIN, AUGMENTIN, REGLAN, AND FLU VACCINES. PHYSICAL EXAMINATION: GENERAL: The patient is awake and alert. She is in no acute distress. She appears well nourished and appears her stated age. HEAD AND NECK: The patient is normocephalic and atraumatic. Carotid pulsations are 2/2 bilaterally without bruits. Jugular venous pressure does not appearelevated. No thyromegaly appreciated. EYES: Conjunctivae are clear. Extraocular movements are intact. There is no xanthelasma. LUNGS: There is good respiratory effort with symmetrical expansion bilaterally. Lungs are clear to auscultation bilaterally. CARDIOVASCULAR: Regular rate and rhythm with normal S1 and S2. No rubs or gallops appreciated. Point of maximal impulse does not appear displaced. ABDOMEN: There are normal bowel sounds and the abdomen is soft and nontender. LOWER EXTREMITIES: There is trace pretibial edema bilaterally with compression stockings in place. The posterior tibial pulses are palpable bilaterally. SKIN: There is normal skin turgor. MUSCULOSKELETAL: I do not appreciate kyphosis or scoliosis. NEUROLOGIC: The patient is alert and oriented x 3. Cranial nerves 3 through 12 appear grossly intact. The patient has good motor tone and strength in the upper and lower extremities bilaterally. PSYCHOLOGICAL: The patient is pleasant and has normal affect. IMPRESSION: Acute on chronic congestive heart failure with preserved ejection fraction. She has recently had a transesophageal echocardiogram at [facility] we will request records. Agree with IV Lasix and follow up labs and chest x- ray. Paroxysmal atrial fibrillation - She is currently maintaining sinus rhythm. Continue Eliquis for anticoagulation and metoprolol for rhythm/rate maintenance. Coronary artery disease. She is not presently having angina. She had a recent catheterization that did not show any coronary disease that required revascularization. Hypercholesterolemia. The patient should be continued on her atorvastatin. Sick sinus syndrome. The patient's pacemaker appears to be functioning normally. She can continue with routine pacemaker checks through her regular peanut salter. Chronic kidney disease stage 3, improved from previous admission. Anemia of chronic disease likely related to chronic kidney disease stage 3 Current Medications Current Medications Aspirin (Children'S Aspirin) 324 mg 1X ONCE PO Last administered on 12/09/17 13:21; Start 12/09/17 at 13:30; Stop 12/09/17 at 13:31; Status DC Metoprolol Tartrate (Lopressor) 25 mg DAILY PO ; Start 12/10/17 at 09:00; Status Cancel Acetaminophen (Tylenol) 650 mg PRN Q6HRS PRN PO PAIN; Start 12/09/17 at 20:30 Allopurinol (Zyloprim) 100 mg DAILY PO Last administered on 12/10/17at 09:19; Start 12/10/17 at 09:00 Alprazolam (Xanax) 0.25 mg PRN TID PRN PO ANXIETY / AGITATION; Start 12/09/17 at 20:30 Apixaban (Eliquis) 2.5 mg BID PO Last administered on 12/10/17at 09:20; Start at 21:00 Atorvastatin Calcium (Lipitor) 10 mg HS PO Last administered on 12/09/17at 21:31 ; Start 12/09/17 at 21:00 Furosemide (Lasix) 40 mg DAILY PO Last administered on 12/10/17at 09:20; Start 12/10/17 at 09:00 Albuterol/ Ipratropium (Duoneb) 3 ml PRN Q6HRS PRN NEB SHORTNESS OF BREATH; Start 12/09/17 at 20:30 Lidocaine (Lidoderm) 1 patch DAILY TD Last administered on 12/10/17at 09:00; Start 12/10/17 at 09:00 Magnesium Oxide (Magnesium Oxide) 400 mg DAILY PO Last administered on at 09:20; Start 12/10/17 at 09:00 Nitroglycerin (Nitrostat) 0.4 mg PRN Q5MIN PRN SL CHEST PAIN; Start 12/09/17 at 20:30 Pantoprazole Sodium (Protonix) 40 mg DAILYAC PO Last administered on 12/10/17at 09:20; Start 12/10/17 at 07:30 Ropinirole HCl (Requip) 0.25 mg HS PO Last administered on 12/09/17at 21:31; Start 12/09/17 at 21:00 Senna/Docusate Sodium (Senna Plus) 1 tab BID PO Last administered on 12/10/17 09:20; Start 12/09/17 at 21:00 Trazodone HCl (Desyrel) 50 mg HS PO Last administered on 12/09/17at 21:31; Start 12/09/17 at 21:00 Vitamin D (Vitamin D3) 5,000 unit WEEKLY PO ; Start 12/16/17 at 09:00 Glimepiride (Amaryl) 4 mg DAILY PO Last administered on 12/10/17 09:19; Start 12/10/17 at 09:00 Insulin Glargine (Lantus) 20 units BID SQ Last administered on 12/09/17at 21:42; Start 12/09/17 at 21:00 Meclizine HCl (Antivert) 25 mg PRN TID PRN PO DIZZINESS; Start 12/09/17 at 20:45 Metoprolol Tartrate (Lopressor) 25 mg BID PO ; Start 12/10/17 at 09:00; Status Cancel Miscellaneous (Lidoderm Patch Removal) 1 ea QHS MC Last administered on at 21:33; Start 12/09/17 at 21:00 Metoprolol Tartrate (Lopressor) 25 mg BID PO Last administered on 12/10/17 09: 20; Start 12/09/17 at 21:00 Active Scripts Active Meclizine Hcl 25 Mg Tablet 1 Tab PO PRN TID NEXT DOSE DUE: DATE: TODAY TIME: IF NEEDED Furosemide 40 Mg Tablet 40 Mg PO DAILY Trazodone Hcl 50 Mg Tablet 50 Mg PO HS 90 Days Requip (Ropinirole Hcl) 0.25 Mg Tablet 0.25 Mg PO HS 90 Days Pantoprazole Sodium 40 Mg Tablet.dr 40 Mg PO DAILYAC 90 Days Lidocaine 1 Each Adh..patch 1 Patch TD DAILY 60 Days Allopurinol 100 Mg Tablet 1 Tab PO DAILY Reported Duoneb 0.5-3(2.5) Mg/3 Ml (Albuterol/Ipratropium) 3 Ml Ampul.neb 3 Ml NEB PRN Q6HRS PRN LAST DOSE GIVEN: DATE: TODAY TIME: AM NEXT DOSE DUE: DATE: TODAY TIME: AFTERNOON Atorvastatin Calcium 10 Mg Tablet 1 Tab PO HS LAST DOSE GIVEN: DATE: YESTERDAY TIME: AT BEDTIME NEXT DOSE DUE: DATE: TODAY TIME: AT BEDTIME Tylenol (Acetaminophen) 325 Mg Tablet 2 Tab PO PRN Q6HRS PRN NEXT DOSE DUE: DATE: TODAY TIME: IF NEEDED Senokot-S Tablet (Sennosides/Docusate Sodium) 1 Each Tablet 1 Tab PO BID LAST DOSE GIVEN: DATE: TIME: AM NEXT DOSE DUE: DATE: TODAY TIME: PM Bystolic (Nebivolol Hcl) 5 Mg Tablet 1 Tab PO HS LAST DOSE GIVEN: DATE: TIME: AT BEDTIME NEXT DOSE DUE: DATE: TIME: AT BEDTIME Magnesium Oxide 400 Mg Tablet 1 Tab PO DAILY LAST DOSE GIVEN: DATE: TIME: AM NEXT DOSE DUE: DATE: TOMORROW TIME: AM Glimepiride 4 Mg Tablet 1 Tab PO DAILY LAST DOSE GIVEN: DATE: TIME: AM NEXT DOSE DUE: DATE: TIME: AM NITROGLYCERIN SubLingual (Nitroglycerin) 0.4 Mg Tab.subl 0.4 Mg SL PRN Q5MIN PRN NEXT DOSE DUE: DATE: TIME: IF NEEDED NEXT DOSE DUE: DATE: as needed for chest pain TIME: Xanax (Alprazolam) 0.25 Mg Tablet 0.25 Mg PO PRN TID PRN NEXT DOSE DUE: DATE: TIME: IF NEEDED NEXT DOSE DUE: DATE: 01/02/17 TIME: 0900 Levemir (Insulin Detemir) 100 Unit/1 Ml Vial 20 Unit SQ BID LAST DOSE GIVEN: DATE: TER TIME: AT BEDTIME NEXT DOSE DUE: DATE: TIME: AT BEDTIME Eliquis (Apixaban) 2.5 Mg Tablet 2.5 Mg PO BID LAST DOSE GIVEN: DATE: TIME: AM NEXT DOSE DUE: DATE: TODAY TIME: PM Vitamin D (Cholecalciferol (Vitamin D3)) 2,000 Unit Capsule 5,000 Unit PO WEEKLY Continue taking on your weekly schedule DATE: 04/18/17 TIME: 0900 NEXT DOSE DUE: DATE: 04/25/17 TIME: 0900 Allergies: Coded Allergies: Influenza Virus Vaccines (Verified Allergy, Intermediate, GENERALIZED BODY /JOINT ACHES, 12/09/17) Penicillins (Verified Allergy, Intermediate, NAUSEA/VOMITING, 10/20/17) amoxicillin (Verified Allergy, Intermediate, Nausea/Vomiting, 10/20/17) cephalexin (Verified Allergy, Intermediate, Nausea/Vomiting, 10/20/17) clavulanic acid (Verified Allergy, Intermediate, Nausea/Vomiting, 10/20/17) metoclopramide (Verified Allergy, Intermediate, NAUSEA/VOMITING, 10/20/17) VITALS Vital Signs Date Time Temp Pulse Resp B/P (MAP) Pulse Ox O2 Delivery O2 Flow Rate FiO2 12/10/17 11:00 98.5 72 20 138/71 (93) 96 Room Air Labs Laboratory Tests Test 12/09/17 13:27 12/09/17 13:45 12/09/17 16:40 12/09/17 19:50 White Blood Count 7.0 x10^3/uL (4.0-11.0) Red Blood Count 3.92 x10^6/uL (3.50-5.40) Hemoglobin 11.2 g/dL (12.0-15.5) Hematocrit 34.4 % (36.0-47.0) Mean Corpuscular Volume 88 fL (79-100) Mean Corpuscular Hemoglobin 28 pg (25-35) Mean Corpuscular Hemoglobin Concent 33 g/dL (31-37) Red Cell Distribution Width 15.7 % (11.5-14.5) Platelet Count 153 x10^3/uL (140-400) Neutrophils (%) (Auto) 67 % (31-73) Lymphocytes (%) (Auto) 23 % (24-48) Monocytes (%) (Auto) 7 % (0-9) Eosinophils (%) (Auto) 1 % (0-3) Basophils (%) (Auto) 1 % (0-3) Neutrophils # (Auto) 4.7 x10^3uL (1.8-7.7) Lymphocytes # (Auto) 1.6 x10^3/uL (1.0-4.8) Monocytes # (Auto) 0.5 x10^3/uL (0.0-1.1) Eosinophils # (Auto) 0.1 x10^3/uL (0.0-0.7) Basophils # (Auto) 0.1 x10^3/uL (0.0-0.2) Prothrombin Time 10.1 SEC (9.4-11.4) Prothromb Time International Ratio 1.0 (0.9-1.1) Sodium Level 141 mmol/L (136-145) Potassium Level 3.8 mmol/L (3.5-5.1) Chloride Level 103 mmol/L (98-107) Carbon Dioxide Level 30 mmol/L (21-32) Anion Gap 8 (6-14) Blood Urea Nitrogen 26 mg/dL (7-20) Creatinine 2.0 mg/dL (0.6-1.0) Estimated GFR (Cockcroft-Gault) 28.5 BUN/Creatinine Ratio 13 (6-20) Glucose Level 147 mg/dL (70-99) Calcium Level 8.9 mg/dL (8.5-10.1) Magnesium Level 1.8 mg/dL (1.8-2.4) Total Bilirubin 0.3 mg/dL (0.2-1.0) Aspartate Amino Transf (AST/SGOT) 13 U/L (15-37) Alanine Aminotransferase (ALT/SGPT) 17 U/L (14-59) Alkaline Phosphatase 49 U/L (46-116) Creatine Kinase 97 U/L (26-192) Creatine Kinase MB (Mass) 1.2 ng/mL (0.0-3.6) Creatine Kinase MB Relative Index 1.2 % (0-4) Troponin I Quantitative < 0.017 ng/mL (0-0.055) < 0.017 ng/mL (0-0.055) QV-Nbn-L-Type Natriuretic Peptide 1218 pg/mL (0-449) Total Protein 7.4 g/dL (6.4-8.2) Albumin 3.5 g/dL (3.4-5.0) Albumin/Globulin Ratio 0.9 (1.0-1.7) Lipase 77 U/L (73-393) Glucose (Fingerstick) 98 mg/dL (70-99) Test 12/09/17 21:36 12/10/17 01:58 12/10/17 09:11 12/10/17 11:45 Glucose (Fingerstick) 194 mg/dL (70-99) 126 mg/dL (70-99) Troponin I Quantitative < 0.017 ng/mL (0-0.055) < 0.017 ng/mL (0-0.055) Sodium Level 141 mmol/L (136-145) Potassium Level 4.3 mmol/L (3.5-5.1) Chloride Level 101 mmol/L (98-107) Carbon Dioxide Level 32 mmol/L (21-32) Anion Gap 8 (6-14) Blood Urea Nitrogen 25 mg/dL (7-20) Creatinine 1.9 mg/dL (0.6-1.0) Estimated GFR (Cockcroft-Gault) 30.3 Glucose Level 205 mg/dL (70-99) Calcium Level 9.2 mg/dL (8.5-10.1) CAROL ALLEN Jr, MD 12/11/17 0635: CONSULT Assessment/Plan The patient was seen by Gabino Chairez APRN and I have reviewed her findings and plan and agree with above. Due to staffing constraints, we did not have an attending available on this day to see the patient. MD LAURIE Knowles Jr., JANAE M APRN December 10, 2017 13:48 CAROL ALLEN Jr, MD December 11, 2017 06:35
[2017-12-10] MEDS: PATCH REMOVAL. MC SCH (21:00)
[2017-12-10] MEDS: ATORVASTATIN CALCIUM 10 MG TABLET. PO SCH (22:00)
[2017-12-10] MEDS: traZODone 50 MG TABLET. PO SCH (22:00)
[2017-12-10] MEDS: rOPINIRole 0.25 MG TABLET. PO SCH (22:01)
--- NOTE | 2017-12-10 22:12 | PN ---
DATE: 12/10/2017 SUBJECTIVE: The patient's was admitted yesterday with increasing shortness of breath, cough. She has mostly the left-sided chest pain. She was given Lasix. She also complained of swelling of both lower extremities; however, when I saw her this morning, she stated that she continued to have dry cough and mild shortness of breath on exertion, but not at rest. Her swelling has largely subsided and she is in generally feeling better. PHYSICAL EXAMINATION: GENERAL: When I examined her, she was pale, but not jaundiced, cyanosis, or thyromegaly. She was resting slightly propped up in bed, in no apparent distress. She was pale, but no jaundice, cyanosis, or thyromegaly. No jugular venous distension. No lower limb edema. VITAL SIGNS: Her heart rate was 72, blood pressure was 112/78, temperature was 98.1, respiratory rate was 20, and oxygen saturation was 98%. HEAD, EYES, EARS, NOSE AND THROAT: Showed normocephalic, atraumatic. NECK: Supple. HEART: Showed normal first and second sounds. No gallop, rub or murmur. CHEST: Clear to auscultation. No crepitation or rhonchi. ABDOMEN: Distended, soft, nontender. NEUROLOGIC: She is awake, alert, responding appropriately. Cranial nerves are intact. EXTREMITIES: She moves extremities without difficulty. Examination of the extremities showed no clubbing, cyanosis or edema. Her intake was 360. No output was recorded. LABORATORY DATA: No lab works were ordered this morning. ASSESSMENT: Chest pain, most likely musculoskeletal. She did have 1 set of cardiac enzymes which was normal. I will order another one this morning. Shortness of breath and chest x-ray was essentially unremarkable; however, the patient did respond very well to Lasix and received another Lasix this morning. She has multiple medical problems including hyperlipidemia and atrial fibrillation and hypertension and type 2 diabetes and gout. PLAN: My plan is to consult the director of communications to optimize her medical management and hopefully she can be discharged home tomorrow. JAMES MULTANI MD DR: ESTEPHANIA/deepak JOB#: [id number] / [id number]
[2017-12-11 05:43] VITALS: BP 147/65
[2017-12-11 06:03] LABS: BASO # 0.1 x10^3/uL (0.0-0.2); BASO % 1 % (0-3); EOS # 0.1 x10^3/uL (0.0-0.7); EOS % 1 % (0-3); HEMATOCRIT 34.8 % (36.0-47.0); HEMOGLOBIN 11.3 g/dL (12.0-15.5); LYMPH # 2.3 x10^3/uL (1.0-4.8); LYMPH % 29 % (24-48); MEAN CORPUSCULAR HEMOGLOBIN 28 pg (25-35); MEAN CORPUSCULAR HGB CONC 32 g/dL (31-37); MEAN CORPUSCULAR VOLUME 87 fL (79-100); MONO # 0.6 x10^3/uL (0.0-1.1); MONO % 8 % (0-9); NEUT % 61 % (31-73); PLATELET COUNT 162 x10^3/uL (140-400); RED CELL DISTRIBUTION WIDTH 15.4 % (11.5-14.5); WHITE BLOOD COUNT 8.2 x10^3/uL (4.0-11.0)
[2017-12-11 06:16] LABS: ALBUMIN 3.3 g/dL (3.4-5.0); ALBUMIN/GLOBULIN RATIO 0.9 (1.0-1.7); CALCIUM 9.2 mg/dL (8.5-10.1); CREATININE 1.8 mg/dL (0.6-1.0); GFR 32.2; POTASSIUM 4.5 mmol/L (3.5-5.1); TOTAL BILIRUBIN 0.4 mg/dL (0.2-1.0)
[2017-12-11 08:43] VITALS: BP 147/65
[2017-12-11] MEDS: INSULIN GLARGINE 300 UNITS/3 ML INSULN.PEN. SQ SCH (08:43)
[2017-12-11] MEDS: APIXABAN 2.5 MG TABLET PO SCH (08:43)
[2017-12-11] MEDS: METOPROLOL TART IMMED RELEASE 25 MG TABLET PO SCH (08:43)
[2017-12-11] MEDS: ALLOPURINOL 100 MG TABLET. PO SCH (08:43)
[2017-12-11] MEDS: MAGNESIUM OXIDE 400 MG TABLET PO SCH (08:43)
[2017-12-11] MEDS: SENNOSIDES/DOCUSATE 8.6/50MG TABLET. PO SCH (08:43)
[2017-12-11] MEDS: GLIMEPIRIDE 2 MG TABLET PO SCH (08:43)
[2017-12-11] MEDS: PANTOPRAZOLE 40 MG TABLET. PO SCH (08:43)
[2017-12-11] MEDS: FUROSEMIDE 40 MG TABLET PO SCH (08:43)
--- NOTE | 2017-12-11 08:46 | PDOC ---
GABINO SULLIVAN PROJECT DEVELOPMENT MANAGER 12/11/17 0846: PROGRESS NOTES Diagnosis Problem Problems Medical Problems: (1) Chest pain Status: Acute Assessment We are seeing the patient for congestive heart failure Acute on chronic congestive heart failure with preserved ejection fraction. Now clinically compensated. Plan for discharge. She follows with Dr Dunn as an OP Paroxysmal atrial fibrillation - She is currently maintaining sinus rhythm. Continue Eliquis for anticoagulation and metoprolol for rhythm/rate maintenance. Coronary artery disease. She is not presently having angina. She had a recent catheterization that did not show any coronary disease that required revascularization. Hypercholesterolemia. The patient should be continued on her atorvastatin. Sick sinus syndrome. The patient's pacemaker appears to be functioning normally. She can continue with routine pacemaker checks through her regular mirror specialist. Chronic kidney disease stage 3, improved from previous admission. Anemia of chronic disease likely related to chronic kidney disease stage 3 Subjective Sitting up at bedside eating breakfast without obvious dyspnea. Reports breathing has improved and her chronic chest pain at pacemaker site is stable. Woke early this morning shakey and did not sleep well. Took her blood sugar and it was in the 50s . After juice and food she is feeling better Objective Vital Signs Date Time Temp Pulse Resp B/P (MAP) Pulse Ox O2 Delivery O2 Flow Rate FiO2 12/11/17 05:43 98.4 70 18 147/65 (92) 98 Room Air Intake and Output 12/11/17 07:00 Intake Total 600 ml Output Total 1100 ml Balance -500 ml Intake Oral 600 ml Output Urine Total 1100 ml # Voids 1 # Bowel Movements 1 Abdomen: Normal bowel sounds, Soft, No tenderness Heart: Regular rate, Normal S1, Normal S2 Extremities: No edema, Normal pulses General: Alert, Oriented X3, Cooperative Lungs: Clear to auscultation Psych/Mental Status: Mental status NL, Mood NL Review of Relevant I have reviewed the following items alisha (where applicable) has been applied. Labs Laboratory Tests Test 12/09/17 13:27 12/09/17 13:45 12/09/17 16:40 12/09/17 19:50 White Blood Count 7.0 x10^3/uL (4.0-11.0) Red Blood Count 3.92 x10^6/uL (3.50-5.40) Hemoglobin 11.2 g/dL (12.0-15.5) Hematocrit 34.4 % (36.0-47.0) Mean Corpuscular Volume 88 fL (79-100) Mean Corpuscular Hemoglobin 28 pg (25-35) Mean Corpuscular Hemoglobin Concent 33 g/dL (31-37) Red Cell Distribution Width 15.7 % (11.5-14.5) Platelet Count 153 x10^3/uL (140-400) Neutrophils (%) (Auto) 67 % (31-73) Lymphocytes (%) (Auto) 23 % (24-48) Monocytes (%) (Auto) 7 % (0-9) Eosinophils (%) (Auto) 1 % (0-3) Basophils (%) (Auto) 1 % (0-3) Neutrophils # (Auto) 4.7 x10^3uL (1.8-7.7) Lymphocytes # (Auto) 1.6 x10^3/uL (1.0-4.8) Monocytes # (Auto) 0.5 x10^3/uL (0.0-1.1) Eosinophils # (Auto) 0.1 x10^3/uL (0.0-0.7) Basophils # (Auto) 0.1 x10^3/uL (0.0-0.2) Prothrombin Time 10.1 SEC (9.4-11.4) Prothromb Time International Ratio 1.0 (0.9-1.1) Sodium Level 141 mmol/L (136-145) Potassium Level 3.8 mmol/L (3.5-5.1) Chloride Level 103 mmol/L (98-107) Carbon Dioxide Level 30 mmol/L (21-32) Anion Gap 8 (6-14) Blood Urea Nitrogen 26 mg/dL (7-20) Creatinine 2.0 mg/dL (0.6-1.0) Estimated GFR (Cockcroft-Gault) 28.5 BUN/Creatinine Ratio 13 (6-20) Glucose Level 147 mg/dL (70-99) Calcium Level 8.9 mg/dL (8.5-10.1) Magnesium Level 1.8 mg/dL (1.8-2.4) Total Bilirubin 0.3 mg/dL (0.2-1.0) Aspartate Amino Transf (AST/SGOT) 13 U/L (15-37) Alanine Aminotransferase (ALT/SGPT) 17 U/L (14-59) Alkaline Phosphatase 49 U/L (46-116) Creatine Kinase 97 U/L (26-192) Creatine Kinase MB (Mass) 1.2 ng/mL (0.0-3.6) Creatine Kinase MB Relative Index 1.2 % (0-4) Troponin I Quantitative < 0.017 ng/mL (0-0.055) < 0.017 ng/mL (0-0.055) UY-Mpd-[id number]-Type Natriuretic Peptide 1218 pg/mL (0-449) Total Protein 7.4 g/dL (6.4-8.2) Albumin 3.5 g/dL (3.4-5.0) Albumin/Globulin Ratio 0.9 (1.0-1.7) Lipase 77 U/L (73-393) Glucose (Fingerstick) 98 mg/dL (70-99) Test 12/09/17 21:36 12/10/17 01:58 12/10/17 09:11 12/10/17 11:45 Glucose (Fingerstick) 194 mg/dL (70-99) 126 mg/dL (70-99) Troponin I Quantitative < 0.017 ng/mL (0-0.055) < 0.017 ng/mL (0-0.055) Sodium Level 141 mmol/L (136-145) Potassium Level 4.3 mmol/L (3.5-5.1) Chloride Level 101 mmol/L (98-107) Carbon Dioxide Level 32 mmol/L (21-32) Anion Gap 8 (6-14) Blood Urea Nitrogen 25 mg/dL (7-20) Creatinine 1.9 mg/dL (0.6-1.0) Estimated GFR (Cockcroft-Gault) 30.3 Glucose Level 205 mg/dL (70-99) Calcium Level 9.2 mg/dL (8.5-10.1) Test 12/10/17 17:08 12/11/17 05:18 12/11/17 05:33 12/11/17 05:58 Glucose (Fingerstick) 178 mg/dL (70-99) 54 mg/dL (70-99) 88 mg/dL (70-99) White Blood Count 8.2 x10^3/uL (4.0-11.0) Red Blood Count 4.00 x10^6/uL (3.50-5.40) Hemoglobin 11.3 g/dL (12.0-15.5) Hematocrit 34.8 % (36.0-47.0) Mean Corpuscular Volume 87 fL (79-100) Mean Corpuscular Hemoglobin 28 pg (25-35) Mean Corpuscular Hemoglobin Concent 32 g/dL (31-37) Red Cell Distribution Width 15.4 % (11.5-14.5) Platelet Count 162 x10^3/uL (140-400) Neutrophils (%) (Auto) 61 % (31-73) Lymphocytes (%) (Auto) 29 % (24-48) Monocytes (%) (Auto) 8 % (0-9) Eosinophils (%) (Auto) 1 % (0-3) Basophils (%) (Auto) 1 % (0-3) Neutrophils # (Auto) 5.0 x10^3uL (1.8-7.7) Lymphocytes # (Auto) 2.3 x10^3/uL (1.0-4.8) Monocytes # (Auto) 0.6 x10^3/uL (0.0-1.1) Eosinophils # (Auto) 0.1 x10^3/uL (0.0-0.7) Basophils # (Auto) 0.1 x10^3/uL (0.0-0.2) Sodium Level 143 mmol/L (136-145) Potassium Level 4.5 mmol/L (3.5-5.1) Chloride Level 104 mmol/L (98-107) Carbon Dioxide Level 32 mmol/L (21-32) Anion Gap 7 (6-14) Blood Urea Nitrogen 23 mg/dL (7-20) Creatinine 1.8 mg/dL (0.6-1.0) Estimated GFR (Cockcroft-Gault) 32.2 BUN/Creatinine Ratio 13 (6-20) Glucose Level 81 mg/dL (70-99) Calcium Level 9.2 mg/dL (8.5-10.1) Total Bilirubin 0.4 mg/dL (0.2-1.0) Aspartate Amino Transf (AST/SGOT) 14 U/L (15-37) Alanine Aminotransferase (ALT/SGPT) 16 U/L (14-59) Alkaline Phosphatase 51 U/L (46-116) Total Protein 7.0 g/dL (6.4-8.2) Albumin 3.3 g/dL (3.4-5.0) Albumin/Globulin Ratio 0.9 (1.0-1.7) Test 12/11/17 07:48 Glucose (Fingerstick) 68 mg/dL (70-99) Medications Current Medications Aspirin (Children'S Aspirin) 324 mg 1X ONCE PO Last administered on 12/09/17at 13:21; Start 12/09/17 at 13:30; Stop 12/09/17 at 13:31; Status DC Metoprolol Tartrate (Lopressor) 25 mg DAILY PO ; Start 12/10/17 at 09:00; Status Cancel Acetaminophen (Tylenol) 650 mg PRN Q6HRS PRN PO PAIN; Start 12/09/17 at 20:30 Allopurinol (Zyloprim) 100 mg DAILY PO Last administered on 12/10/17at 09:19; Start 12/10/17 at 09:00 Alprazolam (Xanax) 0.25 mg PRN TID PRN PO ANXIETY / AGITATION; Start 12/09/17 at 20:30 Apixaban (Eliquis) 2.5 mg BID PO Last administered on 12/10/17at 22:01; Start at 21:00 Atorvastatin Calcium (Lipitor) 10 mg HS PO Last administered on 12/10/17at 22:00 ; Start 12/09/17 at 21:00 Furosemide (Lasix) 40 mg DAILY PO Last administered on 12/10/17at 09:20; Start 12/10/17 at 09:00 Albuterol/ Ipratropium (Duoneb) 3 ml PRN Q6HRS PRN NEB SHORTNESS OF BREATH; Start 12/09/17 at 20:30 Lidocaine (Lidoderm) 1 patch DAILY TD Last administered on 12/10/17at 09:00; Start 12/10/17 at 09:00 Magnesium Oxide (Magnesium Oxide) 400 mg DAILY PO Last administered on at 09:20; Start 12/10/17 at 09:00 Nitroglycerin (Nitrostat) 0.4 mg PRN Q5MIN PRN SL CHEST PAIN; Start 12/09/17 at 20:30 Pantoprazole Sodium (Protonix) 40 mg DAILYAC PO Last administered on 12/10/17 09:20; Start 12/10/17 at 07:30 Ropinirole HCl (Requip) 0.25 mg HS PO Last administered on 12/10/17 22:01; Start 12/09/17 at 21:00 Senna/Docusate Sodium (Senna Plus) 1 tab BID PO Last administered on 12/10/17 22:01; Start 12/09/17 at 21:00 Trazodone HCl (Desyrel) 50 mg HS PO Last administered on 12/10/17 22:00; Start 12/09/17 at 21:00 Vitamin D (Vitamin D3) 5,000 unit WEEKLY PO ; Start 12/16/17 at 09:00 Glimepiride (Amaryl) 4 mg DAILY PO Last administered on 12/10/17 09:19; Start 12/10/17 at 09:00 Insulin Glargine (Lantus) 20 units BID SQ Last administered on 12/10/17 22:10 ; Start 12/09/17 at 21:00 Meclizine HCl (Antivert) 25 mg PRN TID PRN PO DIZZINESS; Start 12/09/17 at 20:45 Metoprolol Tartrate (Lopressor) 25 mg BID PO ; Start 12/10/17 at 09:00; Status Cancel Miscellaneous (Lidoderm Patch Removal) 1 ea QHS MC Last administered on at 21:00; Start 12/09/17 at 21:00 Metoprolol Tartrate (Lopressor) 25 mg BID PO Last administered on 12/10/17at 22: 01; Start 12/09/17 at 21:00 Active Scripts Active Meclizine Hcl 25 Mg Tablet 1 Tab PO PRN TID NEXT DOSE DUE: DATE: TODAY TIME: IF NEEDED Furosemide 40 Mg Tablet 40 Mg PO DAILY Trazodone Hcl 50 Mg Tablet 50 Mg PO HS 90 Days Requip (Ropinirole Hcl) 0.25 Mg Tablet 0.25 Mg PO HS 90 Days Pantoprazole Sodium 40 Mg Tablet.dr 40 Mg PO DAILYAC 90 Days Lidocaine 1 Each Adh..patch 1 Patch TD DAILY 60 Days Allopurinol 100 Mg Tablet 1 Tab PO DAILY Reported Duoneb 0.5-3(2.5) Mg/3 Ml (Albuterol/Ipratropium) 3 Ml Ampul.neb 3 Ml NEB PRN Q6HRS PRN LAST DOSE GIVEN: DATE: TIME: AM NEXT DOSE DUE: DATE: TIME: AFTERNOON Atorvastatin Calcium 10 Mg Tablet 1 Tab PO HS LAST DOSE GIVEN: DATE: YES TIME: AT BEDTIME NEXT DOSE DUE: DATE: TIME: AT BEDTIME Tylenol (Acetaminophen) 325 Mg Tablet 2 Tab PO PRN Q6HRS PRN NEXT DOSE DUE: DATE: TODAY TIME: IF NEEDED Senokot-S Tablet (Sennosides/Docusate Sodium) 1 Each Tablet 1 Tab PO BID LAST DOSE GIVEN: DATE: TIME: AM NEXT DOSE DUE: DATE: TODAY TIME: PM Bystolic (Nebivolol Hcl) 5 Mg Tablet 1 Tab PO HS LAST DOSE GIVEN: DATE: TIME: AT BEDTIME NEXT DOSE DUE: DATE: TIME: AT BEDTIME Magnesium Oxide 400 Mg Tablet 1 Tab PO DAILY LAST DOSE GIVEN: DATE: TIME: AM NEXT DOSE DUE: DATE: TOMORR TIME: AM Glimepiride 4 Mg Tablet 1 Tab PO DAILY LAST DOSE GIVEN: DATE: TIME: AM NEXT DOSE DUE: DATE: TOM TIME: AM NITROGLYCERIN SubLingual (Nitroglycerin) 0.4 Mg Tab.subl 0.4 Mg SL PRN Q5MIN PRN NEXT DOSE DUE: DATE: TIME: IF NEEDED NEXT DOSE DUE: DATE: as needed for chest pain TIME: Xanax (Alprazolam) 0.25 Mg Tablet 0.25 Mg PO PRN TID PRN NEXT DOSE DUE: DATE: TIME: IF NEEDED NEXT DOSE DUE: DATE: 01/02/17 TIME: 0900 Levemir (Insulin Detemir) 100 Unit/1 Ml Vial 20 Unit SQ BID LAST DOSE GIVEN: DATE: TIME: AT BEDTIME NEXT DOSE DUE: DATE: TIME: AT BEDTIME Eliquis (Apixaban) 2.5 Mg Tablet 2.5 Mg PO BID LAST DOSE GIVEN: DATE: TIME: AM NEXT DOSE DUE: DATE: TODAY TIME: PM Vitamin D (Cholecalciferol (Vitamin D3)) 2,000 Unit Capsule 5,000 Unit PO WEEKLY Continue taking on your weekly schedule DATE: 04/18/17 TIME: 0900 NEXT DOSE DUE: DATE: 04/25/17 TIME: 09 Vitals/I & O Vital Sign - Last 24 Hours 12/10/17 12/10/17 12/10/17 12/10/17 09:20 11:00 15:00 19:00 Temp 98.5 98.7 98.6 Pulse 73 72 65 74 Resp 20 18 20 B/P (MAP) 155/75 138/71 (93) 142/76 (98) 149/80 (103) Pulse Ox 96 98 97 O2 Delivery Room Air Room Air Room Air 12/10/17 12/10/17 12/11/17 22:01 23:08 05:43 Temp 97.9 98.4 Pulse 74 74 70 Resp 14 18 B/P (MAP) 149/80 146/75 (98) 147/65 (92) Pulse Ox 96 98 O2 Delivery Room Air Room Air Intake and Output 12/10/17 12/10/17 12/11/17 15:00 23:00 07:00 Intake Total 600 ml Output Total 1100 ml Balance -500 ml CAROL ALLEN Jr, MD 12/11/17 0906: PROGRESS NOTES Assessment CHF, acute on chronic, with preserved ejection fraction. She is markedly improved and most likely back to baseline. She appears to be stable from a cardiac standpoint for discharged home. She can follow up with her regular mirror specialist after discharge. Atrial fibrillation, paroxysmal. She seems to be remaining in sinus rhythm. She is on Eliquis for stroke prevention and beta-juarez for rate control in the event she has recurrent atrial fibrillation. Coronary artery disease. She is not having any angina at this point in time. She should continue the present combination of medications. Aspirin should be avoided since she is taking Eliquis for her atrial fibrillation. Sick sinus syndrome. Pacemaker appears to be functioning normally. She follows with her regular mirror specialist for pacemaker checks. Hypercholesterolemia. Continue statin medication. Disposition. From a cardiac standpoint, the patient can be discharged home. She should follow up with her regular mirror specialist, Dr. Dunn, after discharge. Subjective We are seeing her for CHF among other problems. S: Her edema has resolved. Her breathing feels back to baseline. She denies chest pain, palpitations, or syncope. Abdomen: Normal bowel sounds, Soft, No tenderness Heart: Regular rate, Normal S1, Normal S2, No murmurs Extremities: No clubbing, No cyanosis, No edema, Normal pulses General: Alert, Oriented X3, Cooperative, No acute distress HEENT: Atraumatic, EOMI, Mucous membr. moist/pink Lungs: Clear to auscultation, Normal air movement Neck: No JVD, +2 carotid pulse wo bruit Neuro: Normal speech, Strength at 5/5 X4 ext, Normal tone, Cranial nerves 3-12 NL Psych/Mental Status: Mental status NL, Mood NL Skin: No rashes, No breakdown, No significant lesion GABINO SULLIVAN APRN December 11, 2017 08:46 CAROL ALLEN Jr, MD December 11, 2017 09:06
[2017-12-11] MEDS: LIDOCAINE (700MG/PATCH) PATCH. TD SCH (10:03)
--- NOTE | 2017-12-11 12:50 | DS ---
DATE OF DISCHARGE: 12/09/2017 HISTORY OF PRESENT ILLNESS: The patient is an 87-year-old -French female patient who was admitted with a complaint of shortness of breath, cough, which is mostly dry, and weight gain, also chest pain, mostly in the left side of the chest, swelling in her legs, all this started the day of admission. She denied any nausea or vomiting. Denied any diaphoresis. Denied any radiation of the pain to the left side of the neck, left shoulder, and left arm. She was seen in the Emergency Room and was evaluated extensively. Her first set of cardiac enzyme was found to be less than 0.017. Chest x-ray, which basically showed that the chest was clear with no pulmonary congestion, no pleural effusion or pneumothorax, and was treated with IV Lasix and admitted for further evaluation and treatment. She has had 3 sets of cardiac enzymes, all negative for myocardial infarction. She was seen by the Cardiology team and they did not recommend any further ischemic workup. Her pacemaker seems to be functioning well and her heart rate is well controlled and she is well anticoagulated and the decision was made as she has no further episode of shortness of breath that has been up and about and a decision was made to discharge her home to follow with her primary jordan worker on an as needed basis. On questioning her today, she denied any complaint, in particular denied any shortness of breath, orthopnea, or paroxysmal dyspnea. Denied any cough, phlegm or hemoptysis. Nursing staff did not voice any concerns that she had an uneventful night. PHYSICAL EXAMINATION: GENERAL: When I examined her, she was pale, but no jaundice, cyanosis or thyromegaly. No jugular venous distension. No limb edema. VITAL SIGNS: Her heart rate was 70, blood pressure 147/65, temperature was 98.4, respiratory rate was 18 and oxygen saturation was 98% on room air. HEAD, EYES, EARS, NOSE AND THROAT: Normocephalic, atraumatic. NECK: Supple. HEART: Showed normal first and second heart sounds. No gallop, rub or murmur. CHEST: Clear to auscultation. No crepitation or rhonchi. ABDOMEN: Distended, soft, nontender. No guarding or rigidity. No organomegaly. Hernial orifice intact and bowel sounds normal. NEUROLOGIC: She was awake, alert, responding appropriately. All her cranial nerves intact. She moves extremities without difficulty. She ambulates with a walker without any assistance. Her intake was 360, output was 300. LABORATORY DATA: As of this morning, her serum sodium was 143, potassium 4.5, chloride 104, bicarbonate 32, anion gap of 7, BUN 23, creatinine 1.8, estimated GFR was 32 mL per minute. Her glucose was 81, calcium was 9.1. Total bilirubin, AST, ALT, alkaline phosphatase were normal. Total protein 7, albumin was 3.3. Her white cell count was 8200, hemoglobin 11, hematocrit 35, MCV 87 and platelet count 262,000. DISCHARGE MEDICATIONS: She was discharged home to continue on the following medications: Tylenol 650 mg every 6 hours as needed, allopurinol 100 mg once a day, alprazolam for Xanax 0.25 mg 3 times a day as needed for anxiety and agitation, apixaban 2.5 mg twice a day, atorvastatin calcium 10 mg at bedtime, cholecalciferol for vitamin D3 5000 units weekly, furosemide 40 mg p.o. daily, glimepiride 4 mg daily, detemir insulin 20 units twice a day, ipratropium bromide/albuterol sulfate for DuoNeb 3 mL every 6 hours, Lidoderm patch 1 patch topically on for 12 hours and off for 12 hours, magnesium oxide 400 mg daily, meclizine 25 mg 3 times a day as needed, Bystolic 5 mg at bedtime, nitroglycerin 0.4 mg sublingually every 5 minutes x3, Protonix 40 mg once a day, Requip 0.25 mg at bedtime, Senna-S 1 tablet twice a day and trazodone 50 mg at bedtime. FINAL DISCHARGE DIAGNOSES: 1. Acute on chronic diastolic congestive heart failure, much improved. 2. Paroxysmal atrial fibrillation, rate controlled, well anticoagulated. 3. Coronary artery disease. The patient is angina free and her recent catheterization showed no evidence of any coronary artery disease or catheterization. 4. Hypercholesterolemia for which she is on atorvastatin. 5. Sick sinus syndrome, status post pacemaker placement, it is functioning well. 6. Chronic kidney disease stage 3, stable. 7. Anemia of chronic disease, also stable. 8. The patient has also type 2 diabetes mellitus, she is on Levemir insulin as well as glimepiride and seemed to be well controlled. 9. Gout, for which she is on allopurinol. JAMES MULTANI MD DR: ESTEPHANIA/deepak JOB#: [id number] / [id number]
[2017-12-16] MEDS ORDERED: CHOLECALCIFEROL (VITAMIN D3) 1,000 UNIT TABLET PO SCH (09:00)
== END 2017-12-11 12:30 | disposition home or self-care (01) | DRG 291 ==
LOC: ER 13:09 → 1 SOUTH 14:50 → ER 15:40
PROVIDERS: ADMIT Internal Medicine; ATTEND Internal Medicine
DX: I13.0 Hypertensive heart and chronic kidney disease with heart failure and stage 1 through stage 4 chronic kidney disease, or unspecified chronic kidney disease (principal); I50.33 Acute on chronic diastolic (congestive) heart failure; E11.22 Type 2 diabetes mellitus with diabetic chronic kidney disease; E11.51 Type 2 diabetes mellitus with diabetic peripheral angiopathy without gangrene; R07.89 Other chest pain; D63.8 Anemia in other chronic diseases classified elsewhere; E78.00 Pure hypercholesterolemia, unspecified; E78.5 Hyperlipidemia, unspecified; G89.29 Other chronic pain; I48.0 Paroxysmal atrial fibrillation; K21.9 Gastro-esophageal reflux disease without esophagitis; M10.9 Gout, unspecified; Z96.653 Presence of artificial knee joint, bilateral; M15.9 Polyosteoarthritis, unspecified; I25.10 Atherosclerotic heart disease of native coronary artery without angina pectoris; N18.3 Chronic kidney disease, stage 3 (moderate); Z79.01 Long term (current) use of anticoagulants; Z86.718 Personal history of other venous thrombosis and embolism; Z86.73 Personal history of transient ischemic attack (TIA), and cerebral infarction without residual deficits; Z95.0 Presence of cardiac pacemaker; Z88.6 Allergy status to analgesic agent; Z88.1 Allergy status to other antibiotic agents; Z88.0 Allergy status to penicillin; Z88.7 Allergy status to serum and vaccine; Z88.8 Allergy status to other drugs, medicaments and biological substances; Z98.1 Arthrodesis status
CPT/HCPCS: 36415; 71045; 80048; 80053; 82553; 82947; 83690; 83735; 83880; 84484; 85025; 85610; 93005; J1815; 99285-25

== ENCOUNTER 2018-01-01 14:59 | Inpatient (IN) | payer MEDICARE, OTHER ==
[~2018-01-01] VITALS: Ht 162.6 cm; Wt 80.5 kg
[2018-01-01] MEDS ORDERED: ALBUTEROL SULFATE 2.5 MG/3 ML NEBU. ONE (15:18)
--- NOTE | 2018-01-01 15:56 | PHYS DOC ---
Past History Past Medical History: A-Fib, CHF, Diabetes, Heart Disease, Hip Fracture, Hypertension, Pneumonia Past Surgical History: Appendectomy, Cholecystectomy, Hip Replacement, Knee Replacement, Pacemaker Alcohol Use: None Drug Use: None Adult General Chief Complaint Chief Complaint: DYSPNEA/RESPIRATOY DISTRESS HPI HPI 87-year-old female presents with one-day history of shortness of breath and dizziness. The patient has some shortness of breath and intermittent dizziness at baseline, but today it has been worse than normal. She wears as needed 2 L of oxygen. She has been using that today but still feels short of breath. The dizziness she describes as a room spinning sensation. Again, she has this at baseline from time to time but seems to be bothering her more today. She has been eating and drinking normally. She has a history of CHF and CAD. Her financial aid advisor told her she has not a candidate for stent placement. She denies nausea, vomiting, diarrhea or constipation. Review of Systems Review of Systems Constitutional: Denies fever or chills [] Eyes: Denies change in visual acuity, redness, or eye pain [] HENT: Denies nasal congestion or sore throat [] Respiratory: Denies cough or shortness of breath [] Cardiovascular: No additional information not addressed in HPI [] GI: Denies abdominal pain, nausea, vomiting, bloody stools or diarrhea [] : Denies dysuria or hematuria [] Musculoskeletal: Denies back pain or joint pain [] Integument: Denies rash or skin lesions [] Neurologic: Denies headache, focal weakness or sensory changes [] Endocrine: Denies polyuria or polydipsia [] All other systems were reviewed and found to be within normal limits, except as documented in this note. Current Medications Current Medications Current Medications Medications (Trade) Dose Ordered Sig/Ruel Start Time Stop Time Status Last Admin Dose Admin Albuterol Sulfate (Ventolin) 2.5 mg STK-MED ONCE 01/01/18 15:18 01/01/18 15:19 DC Allergies Allergies Allergies Coded Allergies Type Severity Reaction Last Updated Verified Influenza Virus Vaccines Allergy Intermediate GENERALIZED BODY/JOINT ACHES 12/09 Yes Penicillins Allergy Intermediate NAUSEA/VOMITING 10/20/17 Yes amoxicillin Allergy Intermediate Nausea/Vomiting 10/20/17 Yes cephalexin Allergy Intermediate Nausea/Vomiting 10/20/17 Yes clavulanic acid Allergy Intermediate Nausea/Vomiting 10/20/17 Yes metoclopramide Allergy Intermediate NAUSEA/VOMITING 10/20/17 Yes Physical Exam Physical Exam Constitutional: Well developed, well nourished, no acute distress, non-toxic appearance. [] HENT: Normocephalic, atraumatic, bilateral external ears normal, oropharynx moist, no oral exudates, nose normal. [] Eyes: PERRLA, EOMI, conjunctiva normal, no discharge. [] Neck: Normal range of motion, no tenderness, supple, no stridor. [] Cardiovascular:Heart rate regular rhythm, no murmur [] Lungs & Thorax: Bilateral breath sounds clear to auscultation [] Abdomen: Bowel sounds normal, soft, no tenderness, no masses, no pulsatile masses. [] Skin: Warm, dry, no erythema, no rash. [] Back: No tenderness, no CVA tenderness. [] Extremities: No tenderness, no cyanosis, no clubbing, ROM intact, no edema. [] Neurologic: Alert and oriented X 3, normal motor function, normal sensory function, no focal deficits noted. [] Psychologic: Affect normal, judgement normal, mood normal. [] Current Patient Data Vital Signs Vital Signs Date Time Temp Pulse Resp B/P (MAP) Pulse Ox O2 Delivery O2 Flow Rate FiO2 01/01/18 15:22 98 Nasal Cannula 2.0 01/01/18 14:59 98.4 71 29 EKG EKG Paced rhythm, rate 73, no ST elevations or depressions.[] Radiology/Procedures Radiology/Procedures PORTABLE CHEST 1V History: SHORT OF AIR. Comparison: December 09, 2017 Cardiac silhouette is stable. Pacemaker redemonstrated. Degenerative changes at the shoulders. No pneumothorax. No pleural effusion. No focal airspace consolidation. IMPRESSION: No acute radiographic findings. Electronically signed by: Madan Rodriguez MD (01/01/2018 4:37 PM) [id number][] Course & Med Decision Making Course & Med Decision Making Pertinent Labs and Imaging studies reviewed. (See chart for details) Patient's chest x-ray is negative for acute findings, her EKG is unremarkable, her labs show elevated creatinine 1.9. Review of her chart shows that her baseline creatinine is about 2.0. Her proBNP is elevated is 2675. Review of the chart shows her baseline to be around 1200. Patient seems to be having exacerbation of CHF. I stressed the patient with Dr. Lynn and he has accepted the patient for admission to telemetry. [] Dragon Disclaimer Dragon Disclaimer This electronic medical record was generated, in whole or in part, using a voice recognition dictation system. Departure Departure: Referrals: PATRICIA COOPER MD (PCP) TAMARA RAIN DO Jan 01, 2018 15:56
--- NOTE | 2018-01-01 16:41 | RAD ---
PORTABLE CHEST 1V History: SHORT OF AIR. Comparison: December 09, 2017 Cardiac silhouette is stable. Pacemaker redemonstrated. Degenerative changes at the shoulders. No pneumothorax. No pleural effusion. No focal airspace consolidation. IMPRESSION: No acute radiographic findings. Electronically signed by: Madan Rodriguez MD (01/01/2018 4:37 PM) [facility]
[2018-01-01 17:32] LABS: BASO # 0.1 x10^3/uL (0.0-0.2); BASO % 1 % (0-3); EOS # 0.1 x10^3/uL (0.0-0.7); EOS % 1 % (0-3); HEMATOCRIT 32.8 % (36.0-47.0); HEMOGLOBIN 10.6 g/dL (12.0-15.5); LYMPH # 1.3 x10^3/uL (1.0-4.8); LYMPH % 18 % (24-48); MEAN CORPUSCULAR HEMOGLOBIN 28 pg (25-35); MEAN CORPUSCULAR HGB CONC 32 g/dL (31-37); MEAN CORPUSCULAR VOLUME 87 fL (79-100); MONO # 0.5 x10^3/uL (0.0-1.1); MONO % 7 % (0-9); NEUT # 5.4 x10^3uL (1.8-7.7); NEUT % 73 % (31-73); PLATELET COUNT 130 x10^3/uL (140-400); RED BLOOD COUNT 3.78 x10^6/uL (3.50-5.40); RED CELL DISTRIBUTION WIDTH 16.2 % (11.5-14.5); WHITE BLOOD COUNT 7.3 x10^3/uL (4.0-11.0)
[2018-01-01 17:44] LABS: ALBUMIN 3.6 g/dL (3.4-5.0); ALBUMIN/GLOBULIN RATIO 0.9 (1.0-1.7); CREATININE 1.9 mg/dL (0.6-1.0); GFR 30.3; TOTAL BILIRUBIN 0.4 mg/dL (0.2-1.0); TOTAL PROTEIN 7.6 g/dL (6.4-8.2)
[2018-01-01 17:45] LABS: POTASSIUM 4.2 mmol/L (3.5-5.1)
[2018-01-01] MEDS ORDERED: FUROSEMIDE 40 MG/4 ML VIAL IVP ONE (18:15)
--- NOTE | 2018-01-01 18:17 | EKG ---
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
[2018-01-01] MEDS ORDERED: ONDANSETRON ODT 4 MG TAB.RAPDIS PO PRN (19:30)
[2018-01-01 20:05] VITALS: BP 115/58
[2018-01-01] MEDS: IPRATRPIUM/ALBUTEROL 0.5/2.5MG 3 ML NEBU. NEB SCH (20:23)
[2018-01-01] MEDS ORDERED: INSU300I SQ (20:53)
[2018-01-01] MEDS ORDERED: SERT50TA8 PO (20:53)
[2018-01-01] MEDS ORDERED: SENNOSIDES/DOCUSATE 8.6/50MG TABLET. PO PRN (21:00)
[2018-01-01] MEDS ORDERED: ALPRAZolam 0.25 MG TABLET PO PRN (21:15)
[2018-01-01] MEDS ORDERED: MECLIZINE 12.5 MG TABLET. PO PRN ×2 (21:15)
[2018-01-01] MEDS: ACETAMINOPHEN 325 MG TABLET PO PRN (21:37)
[2018-01-01] MEDS: FUROSEMIDE 40 MG/4 ML VIAL IVP SCH (21:37)
[2018-01-01] MEDS: traZODone 50 MG TABLET. PO SCH (21:38)
[2018-01-01] MEDS: APIXABAN 2.5 MG TABLET PO SCH (21:38)
[2018-01-01] MEDS: METOPROLOL TART IMMED RELEASE 25 MG TABLET PO SCH (21:38)
[2018-01-01] MEDS: ATORVASTATIN CALCIUM 10 MG TABLET. PO SCH (21:38)
[2018-01-01] MEDS: rOPINIRole 0.25 MG TABLET. PO SCH (21:38)
[2018-01-01 23:23] LABS: COLOR,URINE STRAW
[2018-01-01 23:24] LABS: BACTERIA,URINE FEW /HPF (0-FEW); BILIRUBIN,URINE NEG (NEG); CLARITY,URINE CLEAR; GLUCOSE,URINE NEG (NEG); NITRITE,URINE NEG (NEG); SQUAMOUS EPITHELIAL CELL,UR FEW /LPF; UROBILINOGEN,URINE 0.2 mg/dL (0.2 mg/dL)
[2018-01-02] MEDS: IPRATRPIUM/ALBUTEROL 0.5/2.5MG 3 ML NEBU. NEB SCH ×3 (05:20→16:31)
[2018-01-02 05:23] VITALS: BP 170/84
[2018-01-02 08:42] VITALS: BP 150/66
[2018-01-02] MEDS: FUROSEMIDE 40 MG/4 ML VIAL IVP SCH (08:46)
[2018-01-02] MEDS: LIDOCAINE (700MG/PATCH) PATCH. TD SCH (08:46)
[2018-01-02] MEDS: MAGNESIUM OXIDE 400 MG TABLET PO SCH (08:46)
[2018-01-02] MEDS: GLIMEPIRIDE 2 MG TABLET PO SCH (08:46)
[2018-01-02] MEDS: PANTOPRAZOLE 40 MG TABLET. PO SCH (08:46)
[2018-01-02] MEDS: SERTRALINE 50 MG TABLET. PO SCH (08:47)
[2018-01-02] MEDS: ALLOPURINOL 100 MG TABLET. PO SCH (08:47)
[2018-01-02] MEDS: APIXABAN 2.5 MG TABLET PO SCH ×2 (08:47→20:45)
[2018-01-02] MEDS: METOPROLOL TART IMMED RELEASE 25 MG TABLET PO SCH ×2 (08:47→20:46)
[2018-01-02] MEDS ORDERED: CHOLECALCIFEROL (VITAMIN D3) 1,000 UNIT TABLET PO SCH (09:00)
[2018-01-02] MEDS: ACETAMINOPHEN 325 MG TABLET PO PRN ×2 (09:17→19:29)
[2018-01-02 09:30] LABS: BASO # 0.1 x10^3/uL (0.0-0.2); BASO % 1 % (0-3); EOS % 1 % (0-3); HEMATOCRIT 33.2 % (36.0-47.0); HEMOGLOBIN 10.8 g/dL (12.0-15.5); LYMPH # 1.1 x10^3/uL (1.0-4.8); LYMPH % 12 % (24-48); MEAN CORPUSCULAR HEMOGLOBIN 28 pg (25-35); MEAN CORPUSCULAR HGB CONC 33 g/dL (31-37); MEAN CORPUSCULAR VOLUME 87 fL (79-100); MONO # 0.6 x10^3/uL (0.0-1.1); MONO % 6 % (0-9); NEUT # 7.6 x10^3uL (1.8-7.7); NEUT % 80 % (31-73); PLATELET COUNT 116 x10^3/uL (140-400); RED BLOOD COUNT 3.83 x10^6/uL (3.50-5.40); RED CELL DISTRIBUTION WIDTH 15.6 % (11.5-14.5); WHITE BLOOD COUNT 9.4 x10^3/uL (4.0-11.0)
[2018-01-02 09:37] LABS: CALCIUM 9.3 mg/dL (8.5-10.1); CREATININE 2.1 mg/dL (0.6-1.0); POTASSIUM 4.6 mmol/L (3.5-5.1)
[2018-01-02 11:00] VITALS: BP 131/73
[2018-01-02 16:17] VITALS: BP 133/75
[2018-01-02 18:38] VITALS: BP 162/67
--- NOTE | 2018-01-02 20:30 | HP ---
ADMIT DATE: 01/01/2018 HISTORY OF PRESENT ILLNESS: The patient is an 87-year-old -[place] female patient with multitude of medical problems, who came to the Emergency Room with a 1-day history of shortness of breath and dizziness. The patient has some shortness of breath and intermittent episode of dizziness at baseline, but today has been worse than normal. She normally wears 2 liters of oxygen and although she has been using her oxygen, she continued to be short of breath. She describes her dizziness as the room spinning around, although she has this at baseline. She was evaluated in the Emergency Room. Her chest x-ray showed that the cardiac silhouette is stable. There is no pneumothorax or pleural effusion, no focal airspace consolidation; however, her beta natriuretic peptide was high at 2675. Her first set of troponin was less than 0.017 and the patient was admitted and treated with IV Lasix. PAST MEDICAL HISTORY: Her past medical history is significant for coronary artery disease with recent unstable angina, essential hypertension, hypercholesterolemia, paroxysmal atrial fibrillation, chronic diastolic congestive heart failure, pulmonary hypertension. She has chronic anemia, generalized osteoarthritis, previous history of deep vein thrombosis, type 2 diabetes mellitus, gastroesophageal reflux disease. Other medical problems include arterial disease, history of stroke with no residual deficits, sick sinus syndrome. PAST SURGICAL HISTORY: Her past surgical history is significant for permanent pacemaker placement as well as bilateral knee arthroplasty. FAMILY HISTORY: Unremarkable. SOCIAL HISTORY: She lives at home with her son. She does not smoke, drink alcohol or use any recreational drugs. REVIEW OF SYSTEMS: As per history of present illness. ALLERGIES: SHE IS ALLERGIC TO PENICILLIN, AMOXICILLIN, CEPHALEXIN, AUGMENTIN, REGLAN, AND FLU VACCINE. MEDICATIONS: She is currently on following medications: She is on ipratropium bromide, albuterol sulfate 0.5-2.5 mg in 3 mL by nebulizer every 6 hours, apixaban 2.5 mg twice a day, atorvastatin calcium 10 mg at bedtime, nitroglycerin 0.4 mg sublingually every 5 minutes x 3, Bystolic 5 mg daily, acetaminophen 650 mg every 6 hours, sertraline 50 mg daily, trazodone 50 mg daily, alprazolam 0.25 mg 3 times a day, Requip 0.25 mg at bedtime, furosemide 40 mg p.o. daily, magnesium oxide 400 mg once a day, Senna S 1 tablet twice a day, meclizine 25 mg 3 times a day, Protonix 40 mg daily, Lantus 20 units at bedtime, glimepiride 4 mg p.o. daily, Lidoderm patch 1 patch transdermally apply topically once a day. She is on cholecalciferol 5000 international units once a week, and allopurinol 100 mg once a day. PHYSICAL EXAMINATION: GENERAL: On arrival to the Emergency Room, the patient was pale, but no jaundice or cyanosis. No lymphadenopathy, no thyromegaly. No jugular venous distention, but mild bilateral lower limb edema. VITAL SIGNS: Her heart rate was 71, blood pressure was 134/72, temperature was 98.4, respiratory rate was 29, oxygen saturation was 100% on 2 liters of oxygen. HEAD, EYES, EARS, NOSE AND THROAT: Showed normocephalic, atraumatic. NECK: Supple. HEART: Showed normal first and second heart sounds. No gallop, rub or murmur. CHEST: Clear to auscultation. No crepitation or rhonchi. ABDOMEN: Distended, soft, nontender. NEUROLOGIC: She was awake, alert, responding appropriately. Cranial nerves are intact. EXTREMITIES: She moves extremities without difficulty. LABORATORY AND DIAGNOSTIC DATA: While in the Emergency Room, she has lab work done, which showed a white cell count 6300, hemoglobin 11, hematocrit ____, MCV 87, and platelet count of 130,000 with normal manual differential. Her chemistry showed a serum sodium 140, potassium 4.2, chloride 103, bicarbonate 27, anion gap of 10, BUN 21, creatinine 1.9, estimated GFR was 50 mL per minute. Her glucose was 86, calcium was 9. Total bilirubin, AST, ALT, alkaline phosphatase were normal. Her beta natriuretic peptide was 2675. Total protein was 7.6, albumin 3.6. Urinalysis showed the urine was straw colored, clear with the pH of 5.5, specific gravity 1.005. There is small amount of protein. The urine was negative for glucose, ketones, small amount of blood, negative for nitrite. There was trace amount of leukocyte esterase, 1-2 RBCs, 1-4 WBCs, very few bacteria. Her chest x-ray showed that there is no acute radiographic finding. ASSESSMENT AND PLAN: The patient was admitted with the diagnosis of [id number] diastolic congestive heart failure. She was given Lasix 40 mg and admitted. We will follow her on a daily basis and we will consult her Cardiology team from [facility]. JAMES MULTANI MD DR: ESTEPHANIA/deepak JOB#: [id number] / [id number]
[2018-01-02] MEDS: ATORVASTATIN CALCIUM 10 MG TABLET. PO SCH (20:45)
[2018-01-02] MEDS: rOPINIRole 0.25 MG TABLET. PO SCH (20:46)
[2018-01-02] MEDS: traZODone 50 MG TABLET. PO SCH (20:46)
[2018-01-02] MEDS: INSULIN GLARGINE 300 UNITS/3 ML INSULN.PEN. SQ SCH (20:53)
--- NOTE | 2018-01-02 21:57 | PN ---
DATE: 01/02/2018 SUBJECTIVE: The patient is resting slightly propped up in bed, in no apparent distress. She continued to complain of chest discomfort and shortness of breath, though she has diuresed almost 2 liters of urine overnight. PHYSICAL EXAMINATION: GENERAL: When I examined her, she looked somewhat pale, no jaundice, cyanosis, or thyromegaly. No jugular venous distension. No limb edema. VITAL SIGNS: Her heart rate was 74, blood pressure was 131/73, temperature was 99, respiratory rate 18, and oxygen saturation was 97% on 2 liters of oxygen. HEAD, EYES, EARS, NOSE AND THROAT: Showed normocephalic, atraumatic. NECK: Supple. HEART: Showed normal first and second sounds. No gallop, rub or murmur. CHEST: Clear to auscultation. No crepitation or rhonchi. ABDOMEN: Distended, soft, nontender. NEUROLOGIC: She is awake, alert, responding appropriately. All cranial nerves intact. She moves extremities without difficulty. Her intake over the last 24 hours was 440, output was 2350. LABORATORY DATA: As of this morning, her white cell count was 9400, hemoglobin 10.8, hematocrit 33, MCV 87, and platelet count of 116,000. Serum sodium was 138, potassium 4.6, chloride 101, bicarbonate 30, anion gap of 7, BUN 25, creatinine 2.1, estimated GFR was 27, her glucose was 216, calcium was 9.3. ASSESSMENT AND PLAN: Acute on chronic diastolic congestive heart failure. The patient has diuresed very well more than almost 2 liters of fluid overnight. I will ____ will be given only once a day. Other medical problems include paroxysmal atrial fibrillation, rate controlled, well anticoagulated, coronary artery disease. She is angina free, hypercholesterolemia, sick sinus syndrome for which she has a pacemaker, chronic kidney disease, stable. Anemia of chronic kidney disease, stable. JAMES MULTANI MD DR: ESTEPHANIA/deepak JOB#: [id number] / [id number]
[2018-01-02 22:44] VITALS: BP 130/61
[2018-01-03 05:03] VITALS: BP 134/81
[2018-01-03 06:58] LABS: BASO % 0 % (0-3); EOS # 0.1 x10^3/uL (0.0-0.7); EOS % 2 % (0-3); HEMOGLOBIN 9.9 g/dL (12.0-15.5); LYMPH % 12 % (24-48); MEAN CORPUSCULAR HEMOGLOBIN 28 pg (25-35); MEAN CORPUSCULAR HGB CONC 33 g/dL (31-37); MEAN CORPUSCULAR VOLUME 86 fL (79-100); MONO # 0.5 x10^3/uL (0.0-1.1); MONO % 6 % (0-9); NEUT # 6.4 x10^3uL (1.8-7.7); NEUT % 80 % (31-73); PLATELET COUNT 109 x10^3/uL (140-400); RED CELL DISTRIBUTION WIDTH 15.3 % (11.5-14.5); WHITE BLOOD COUNT 8.1 x10^3/uL (4.0-11.0)
[2018-01-03 07:10] LABS: ALBUMIN/GLOBULIN RATIO 0.8 (1.0-1.7); CALCIUM 8.5 mg/dL (8.5-10.1); CREATININE 2.1 mg/dL (0.6-1.0); POTASSIUM 4.2 mmol/L (3.5-5.1); TOTAL BILIRUBIN 0.6 mg/dL (0.2-1.0)
[2018-01-03] MEDS ORDERED: FUROSEMIDE 40 MG/4 ML VIAL IVP SCH (09:00)
[2018-01-03] MEDS: PANTOPRAZOLE 40 MG TABLET. PO SCH (09:10)
[2018-01-03] MEDS: SERTRALINE 50 MG TABLET. PO SCH (09:10)
[2018-01-03] MEDS: MAGNESIUM OXIDE 400 MG TABLET PO SCH (09:10)
[2018-01-03] MEDS: ALLOPURINOL 100 MG TABLET. PO SCH (09:10)
[2018-01-03] MEDS: GLIMEPIRIDE 2 MG TABLET PO SCH (09:10)
[2018-01-03] MEDS: APIXABAN 2.5 MG TABLET PO SCH ×2 (09:11→20:10)
[2018-01-03] MEDS: METOPROLOL TART IMMED RELEASE 25 MG TABLET PO SCH ×2 (09:11→20:11)
[2018-01-03] MEDS: LIDOCAINE (700MG/PATCH) PATCH. TD SCH (09:13)
--- NOTE | 2018-01-03 10:52 | RAD ---
CHEST PA LATERAL Clinical indications: Short of breath with fever COMPARISON: January 01, 2018. Findings: No acute lung infiltrate or pleural effusion or pulmonary edema or lung mass or pneumothorax is seen. Bipolar atrioventricular pacemaker is again evident. Heart size is mildly enlarged but stable. The pulmonary vasculature, mediastinum and both christiano are otherwise unremarkable. The osseous structures appear intact. Impression: No acute radiographic abnormality is seen. Electronically signed by: Jewel Westbrook MD (01/03/2018 10:48 AM) [facility]
[2018-01-03 12:15] VITALS: BP 123/69
[2018-01-03 14:20] VITALS: BP 133/68
--- NOTE | 2018-01-03 16:17 | RAD ---
Chest CT without contrast Clinical indications: Retrosternal chest pain. TECHNIQUE: Noncontrast helical CT scanning of the chest was performed. Without contrast, sensitivity to detect organ pathology is decreased. PQRS compliance Statement One or more of the following individualized dose reduction techniques were utilized for this study: 1. Automated exposure control 2. Adjustment of the mA and/or kV according to patient size 3. Use of iterative reconstruction technique FINDINGS: No enlarged thoracic lymphadenopathy is evident. No focal aneurysmal dilatation of the thoracic aorta is seen. Calcified atheromatous disease of the coronary arteries is seen. Mild cardiomegaly is evident. No pericardial effusion is evident. Small hiatal hernia is seen. Calcified granuloma of the right upper lobe is seen. No lung mass or lung consolidation is seen. No pleural effusion or pneumothorax is evident. The proximal bronchial tree is patent. No osteolytic process is seen. No adrenal mass is evident. Upper pole right renal cyst is seen. IMPRESSION: No acute lung infiltrate. Mild cardiomegaly. Extensive calcified atheromatous disease of the coronary arteries. Small hiatal hernia. Electronically signed by: Jewel Westbrook MD (01/03/2018 4:14 PM) [facility]
[2018-01-03 19:31] VITALS: BP 149/69
[2018-01-03] MEDS: rOPINIRole 0.25 MG TABLET. PO SCH (20:10)
[2018-01-03] MEDS: ATORVASTATIN CALCIUM 10 MG TABLET. PO SCH (20:10)
[2018-01-03] MEDS: traZODone 50 MG TABLET. PO SCH (20:11)
[2018-01-03] MEDS: INSULIN GLARGINE 300 UNITS/3 ML INSULN.PEN. SQ SCH (20:12)
[2018-01-04] VITALS (8 sets, daily range): BP systolic 114–147; BP diastolic 61–75
[2018-01-04 06:36] LABS: HEMATOCRIT 30.2 % (36.0-47.0); RED BLOOD COUNT 3.54 x10^6/uL (3.50-5.40); RED CELL DISTRIBUTION WIDTH 15.5 % (11.5-14.5); WHITE BLOOD COUNT 6.3 x10^3/uL (4.0-11.0)
[2018-01-04 06:39] LABS: CALCIUM 8.7 mg/dL (8.5-10.1); CREATININE 2.2 mg/dL (0.6-1.0); GFR 25.5; POTASSIUM 3.9 mmol/L (3.5-5.1)
--- NOTE | 2018-01-04 08:44 | PDOC2 ---
GABINO SULLIVAN RETAIL SERVICE TECHNICIAN 01/04/18 0844: CONSULT Date of Admission DATE: 01/04/18 TIME: 08:38 Reason for Consult: Congestive heart failure Problem List Problems Medical Problems: (1) CHF (congestive heart failure) Status: Acute History of Present Illness HISTORY OF PRESENT ILLNESS: The patient is a pleasant 87-year-old female who presented with chief complaint of shortness of breath and dizziness. She has a past medical history of chronic diastolic congestive heart failure, coronary artery disease, hypertension, paroxysmal atrial fibrillation and hyperlipidemia. She follows with Dr Dunn as her primary user experience architect. Last Thursday she started feeling more short of breath than her baseline. She could not walk to bathroom and back without having to stop and catch her breath. She also was becoming more dizzy. She would emergency planning and response manager feel like the room was spinning around her. She does wear oxygen at home and had not taken it off. She has not missed any medications. She did not feel like she had more lower extremity edema, PND or orthopnea. She felt like her legs had become very weak and when she was trying to walk they would give out on her. She was brought into the emergency room and found to have an elevated BNP so they admitted her for IV Lasix. PAST MEDICAL HISTORY: 1. Coronary artery disease with recent unstable angina. 2. Essential hypertension. 3. Hypercholesterolemia. 4. Paroxysmal atrial fibrillation. 5. Chronic diastolic congestive heart failure. 6. Pulmonary hypertension, mild. 7. Chronic anemia. 8. Arthritis. 9. Previous history of deep venous thrombosis. 10. Type 2 diabetes mellitus. 11. Gastroesophageal reflux disease. 12. Bilateral knee replacements. 13. Permanent pacemaker implantation. 14. History of peripheral arterial disease. 15. History of a stroke with no residual deficits. 16. Sick sinus syndrome. PAST SURGICAL HISTORY: 1. Status post permanent pacemaker implantation. 2. Status post knee replacements. FAMILY HISTORY: She does not know of any family history of premature coronary artery disease. SOCIAL HISTORY: She lives at home with her son. She does not smoke or drink alcohol. REVIEW OF SYSTEMS: Review of 10 organ systems is as per the history of present illness, otherwise negative. ALLERGIES: INCLUDE PENICILLIN, AMOXICILLIN, CEPHALEXIN, AUGMENTIN, REGLAN, AND FLU VACCINES. PHYSICAL EXAMINATION: GENERAL: The patient is awake and alert. She is in no acute distress. She appears well nourished and appears her stated age. HEAD AND NECK: The patient is normocephalic and atraumatic. Carotid pulsations are 2/2 bilaterally without bruits. Jugular venous pressure does not appearelevated. No thyromegaly appreciated. EYES: Conjunctivae are clear. Extraocular movements are intact. There is no xanthelasma. LUNGS: There is good respiratory effort with symmetrical expansion bilaterally. Lungs are clear to auscultation bilaterally. CARDIOVASCULAR: Regular rate and rhythm with normal S1 and S2. No rubs or gallops appreciated. Point of maximal impulse does not appear displaced. ABDOMEN: There are normal bowel sounds and the abdomen is soft and nontender. LOWER EXTREMITIES: There is trace pretibial edema bilaterally with compression stockings in place. The posterior tibial pulses are palpable bilaterally. SKIN: There is normal skin turgor. MUSCULOSKELETAL: I do not appreciate kyphosis or scoliosis. NEUROLOGIC: The patient is alert and oriented x 3. Cranial nerves 3 through 12 appear grossly intact. The patient has good motor tone and strength in the upper and lower extremities bilaterally. PSYCHOLOGICAL: The patient is pleasant and has normal affect. IMPRESSION: Acute on chronic congestive heart failure with preserved ejection fraction. Improved with IV Lasix. Chest x- ray shows normal vascularity Paroxysmal atrial fibrillation - She is currently maintaining sinus rhythm. Continue Eliquis for anticoagulation and metoprolol for rhythm/rate maintenance. Coronary artery disease. She is not presently having angina. She had a recent catheterization that did not show any coronary disease that required revascularization. Hypercholesterolemia. The patient should be continued on her atorvastatin. Sick sinus syndrome. The patient's pacemaker appears to be functioning normally. She can continue with routine pacemaker checks through her regular user experience architect. 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 Anemia of chronic disease likely related to chronic kidney disease stage 3/4 Current Medications Current Medications Albuterol Sulfate (Ventolin) 2.5 mg STK-MED ONCE .ROUTE ; Start 01/01/18 at 15:18 ; Stop 01/01/18 at 15:19; Status DC Furosemide (Lasix) 40 mg 1X ONCE IVP Last administered on 01/01/18at 18:30; Start 01/01/18 at 18:15; Stop 01/01/18 at 18:16; Status DC Ondansetron HCl (Zofran Odt) 4 mg PRN Q4HRS PRN PO NAUSEA/VOMITING; Start at 19:30 Acetaminophen (Tylenol) 650 mg PRN Q4HRS PRN PO FEVER Last administered on 09:17; Start 01/01/18 at 19:15; Stop 01/02/18 at 19:14; Status DC Albuterol/ Ipratropium (Duoneb) 3 ml RTQID NEB Last administered on 01/02/18at 16 :31; Start 01/01/18 at 20:00; Stop 01/02/18 at 19:59; Status DC Trazodone HCl (Desyrel) 50 mg QHS PO Last administered on 01/03/18 20:11; Start 01/01/18 at 21:00 Apixaban (Eliquis) 2.5 mg BID PO Last administered on 01/03/18 20:10; Start 01/01/18 at 21:00 Furosemide (Lasix) 40 mg BID IVP Last administered on 01/02/18at 08:46; Start 01/01/18 at 21:00; Stop 01/02/18 at 14:27; Status DC Senna/Docusate Sodium (Senna Plus) 1 tab PRN BID PRN PO CONSTIPATION; Start 01/01/18 at 21:00 Sertraline HCl (Zoloft) 50 mg DAILY PO Last administered on 01/03/18 09:10; Start 01/02/18 at 09:00 Allopurinol (Zyloprim) 100 mg DAILY PO Last administered on 01/03/18at 09:10; Start 01/02/18 at 09:00 Alprazolam (Xanax) 0.25 mg PRN TID PRN PO ANXIETY / AGITATION; Start 01/01/18 at 21:15 Atorvastatin Calcium (Lipitor) 10 mg QHS PO Last administered on 01/03/18 20:10 ; Start 01/01/18 at 21:00 Vitamin D (Vitamin D3) 5,000 unit WEEKLY PO Last administered on 01/02/18at 08:48 ; Start 01/02/18 at 09:00 Glimepiride (Amaryl) 4 mg DAILY PO Last administered on 01/03/18at 09:10; Start 01/02/18 at 09:00 Insulin Glargine (Lantus) 20 units QHS SQ Last administered on 01/03/18 20:12; Start 01/02/18 at 21:00 Lidocaine (Lidoderm) 1 patch DAILY TD Last administered on 01/03/18 09:13; Start 01/02/18 at 09:00 Magnesium Oxide (Magnesium Oxide) 400 mg DAILY PO Last administered on 09:10; Start 01/02/18 at 09:00 Meclizine HCl (Antivert) 12.5 mg PRN TID PRN PO DIZZINESS; Start 01/01/18 at 21: 15; Stop 01/01/18 at 21:15; Status DC Metoprolol Tartrate (Lopressor) 25 mg BID PO Last administered on 01/03/18 20: 11; Start 01/01/18 at 21:00 Pantoprazole Sodium (Protonix) 40 mg DAILYAC PO Last administered on 01/03/18 09:10; Start 01/02/18 at 07:30 Ropinirole HCl (Requip) 0.25 mg QHS PO Last administered on 01/03/18at 20:10; Start 01/01/18 at 21:00 Meclizine HCl (Antivert) 25 mg TID PRN PRN PO DIZZINESS; Start 01/01/18 at 21:15 Furosemide (Lasix) 40 mg DAILY IVP Last administered on 01/03/18 09:12; Start 01/03/18 at 09:00; Stop 01/03/18 at 14:30; Status DC Acetaminophen (Tylenol) 650 mg PRN Q4HRS PRN PO PAIN / TEMP Last administered on 01/02/18at 19:29; Start 01/02/18 at 19:30 Active Scripts Active Meclizine Hcl 25 Mg Tablet 1 Tab PO PRN TID NEXT DOSE DUE: DATE: TODAY TIME: IF NEEDED Furosemide 40 Mg Tablet 40 Mg PO DAILY Trazodone Hcl 50 Mg Tablet 50 Mg PO HS 90 Days Requip (Ropinirole Hcl) 0.25 Mg Tablet 0.25 Mg PO HS 90 Days Pantoprazole Sodium 40 Mg Tablet.dr 40 Mg PO DAILYAC 90 Days Lidocaine 1 Each Adh..patch 1 Patch TD DAILY 60 Days Allopurinol 100 Mg Tablet 1 Tab PO DAILY Reported Sertraline Hcl 50 Mg Tablet 50 Mg PO DAILY Toujeo Solostar (Insulin Glargine,Hum.rec.anlog) 300 Unit/1 Ml Insuln.pen 20 Unit SQ HS Duoneb 0.5-3(2.5) Mg/3 Ml (Albuterol/Ipratropium) 3 Ml Ampul.neb 3 Ml NEB PRN Q6HRS PRN LAST DOSE GIVEN: DATE: TIME: AM NEXT DOSE DUE: DATE: TIME: AFTERNOON Atorvastatin Calcium 10 Mg Tablet 1 Tab PO HS LAST DOSE GIVEN: DATE: YESTER TIME: AT BEDTIME NEXT DOSE DUE: DATE: TODAY TIME: AT BEDTIME Tylenol (Acetaminophen) 325 Mg Tablet 2 Tab PO PRN Q6HRS PRN NEXT DOSE DUE: DATE: TODAY TIME: IF NEEDED Senokot-S Tablet (Sennosides/Docusate Sodium) 1 Each Tablet 1 Tab PO BID PRN LAST DOSE GIVEN: DATE: TIME: AM NEXT DOSE DUE: DATE: TIME: PM Bystolic (Nebivolol Hcl) 5 Mg Tablet 1 Tab PO HS LAST DOSE GIVEN: DATE: TIME: AT BEDTIME NEXT DOSE DUE: DATE: TODAY TIME: AT BEDTIME Magnesium Oxide 400 Mg Tablet 1 Tab PO DAILY LAST DOSE GIVEN: DATE: TIME: AM NEXT DOSE DUE: DATE: TOMORROW TIME: AM Glimepiride 4 Mg Tablet 1 Tab PO DAILY LAST DOSE GIVEN: DATE: TIME: AM NEXT DOSE DUE: DATE: TOMORR TIME: AM NITROGLYCERIN SubLingual (Nitroglycerin) 0.4 Mg Tab.subl 0.4 Mg SL PRN Q5MIN PRN NEXT DOSE DUE: DATE: TIME: IF NEEDED NEXT DOSE DUE: DATE: as needed for chest pain TIME: Xanax (Alprazolam) 0.25 Mg Tablet 0.25 Mg PO PRN TID PRN NEXT DOSE DUE: DATE: TODAY TIME: IF NEEDED NEXT DOSE DUE: DATE: 01/02/17 TIME: 0900 Eliquis (Apixaban) 2.5 Mg Tablet 0.5 Tab PO BID LAST DOSE GIVEN: DATE: TODAY TIME: AM NEXT DOSE DUE: DATE: TODAY TIME: PM Vitamin D (Cholecalciferol (Vitamin D3)) 2,000 Unit Capsule 5,000 Unit PO WEEKLY Continue taking on your weekly schedule DATE: 04/18/17 TIME: 0900 NEXT DOSE DUE: DATE: 04/25/17 TIME: 09 Allergies: Coded Allergies: Influenza Virus Vaccines (Verified Allergy, Intermediate, GENERALIZED BODY /JOINT ACHES, 12/09/17) Penicillins (Verified Allergy, Intermediate, NAUSEA/VOMITING, 10/20/17) amoxicillin (Verified Allergy, Intermediate, Nausea/Vomiting, 10/20/17) cephalexin (Verified Allergy, Intermediate, Nausea/Vomiting, 10/20/17) clavulanic acid (Verified Allergy, Intermediate, Nausea/Vomiting, 10/20/17) metoclopramide (Verified Allergy, Intermediate, NAUSEA/VOMITING, 10/20/17) VITALS Vital Signs Date Time Temp Pulse Resp B/P (MAP) Pulse Ox O2 Delivery O2 Flow Rate FiO2 01/04/18 06:00 80 132/63 (86) 01/04/18 05:57 98.3 20 97 Nasal Cannula 2.0 Labs Laboratory Tests Test 01/02/18 09:14 01/02/18 12:02 01/02/18 16:56 01/02/18 20:44 White Blood Count 9.4 x10^3/uL (4.0-11.0) Red Blood Count 3.83 x10^6/uL (3.50-5.40) Hemoglobin 10.8 g/dL (12.0-15.5) Hematocrit 33.2 % (36.0-47.0) Mean Corpuscular Volume 87 fL (79-100) Mean Corpuscular Hemoglobin 28 pg (25-35) Mean Corpuscular Hemoglobin Concent 33 g/dL (31-37) Red Cell Distribution Width 15.6 % (11.5-14.5) Platelet Count 116 x10^3/uL (140-400) Neutrophils (%) (Auto) 80 % (31-73) Lymphocytes (%) (Auto) 12 % (24-48) Monocytes (%) (Auto) 6 % (0-9) Eosinophils (%) (Auto) 1 % (0-3) Basophils (%) (Auto) 1 % (0-3) Neutrophils # (Auto) 7.6 x10^3uL (1.8-7.7) Lymphocytes # (Auto) 1.1 x10^3/uL (1.0-4.8) Monocytes # (Auto) 0.6 x10^3/uL (0.0-1.1) Eosinophils # (Auto) 0.0 x10^3/uL (0.0-0.7) Basophils # (Auto) 0.1 x10^3/uL (0.0-0.2) Sodium Level 138 mmol/L (136-145) Potassium Level 4.6 mmol/L (3.5-5.1) Chloride Level 101 mmol/L (98-107) Carbon Dioxide Level 30 mmol/L (21-32) Anion Gap 7 (6-14) Blood Urea Nitrogen 25 mg/dL (7-20) Creatinine 2.1 mg/dL (0.6-1.0) Estimated GFR (Cockcroft-Gault) 27.0 Glucose Level 216 mg/dL (70-99) Calcium Level 9.3 mg/dL (8.5-10.1) Glucose (Fingerstick) 200 mg/dL (70-99) 204 mg/dL (70-99) 205 mg/dL (70-99) Test 01/03/18 06:20 01/03/18 08:17 01/03/18 12:02 01/03/18 14:40 White Blood Count 8.1 x10^3/uL (4.0-11.0) Red Blood Count 3.50 x10^6/uL (3.50-5.40) Hemoglobin 9.9 g/dL (12.0-15.5) Hematocrit 30.0 % (36.0-47.0) Mean Corpuscular Volume 86 fL (79-100) Mean Corpuscular Hemoglobin 28 pg (25-35) Mean Corpuscular Hemoglobin Concent 33 g/dL (31-37) Red Cell Distribution Width 15.3 % (11.5-14.5) Platelet Count 109 x10^3/uL (140-400) Neutrophils (%) (Auto) 80 % (31-73) Lymphocytes (%) (Auto) 12 % (24-48) Monocytes (%) (Auto) 6 % (0-9) Eosinophils (%) (Auto) 2 % (0-3) Basophils (%) (Auto) 0 % (0-3) Neutrophils # (Auto) 6.4 x10^3uL (1.8-7.7) Lymphocytes # (Auto) 1.0 x10^3/uL (1.0-4.8) Monocytes # (Auto) 0.5 x10^3/uL (0.0-1.1) Eosinophils # (Auto) 0.1 x10^3/uL (0.0-0.7) Basophils # (Auto) 0.0 x10^3/uL (0.0-0.2) Sodium Level 139 mmol/L (136-145) Potassium Level 4.2 mmol/L (3.5-5.1) Chloride Level 101 mmol/L (98-107) Carbon Dioxide Level 31 mmol/L (21-32) Anion Gap 7 (6-14) Blood Urea Nitrogen 28 mg/dL (7-20) Creatinine 2.1 mg/dL (0.6-1.0) Estimated GFR (Cockcroft-Gault) 27.0 BUN/Creatinine Ratio 13 (6-20) Glucose Level 111 mg/dL (70-99) Calcium Level 8.5 mg/dL (8.5-10.1) Total Bilirubin 0.6 mg/dL (0.2-1.0) Aspartate Amino Transf (AST/SGOT) 27 U/L (15-37) Alanine Aminotransferase (ALT/SGPT) 21 U/L (14-59) Alkaline Phosphatase 53 U/L (46-116) Total Protein 7.0 g/dL (6.4-8.2) Albumin 3.0 g/dL (3.4-5.0) Albumin/Globulin Ratio 0.8 (1.0-1.7) Glucose (Fingerstick) 97 mg/dL (70-99) 160 mg/dL (70-99) Troponin I Quantitative < 0.017 ng/mL (0-0.055) Test 01/03/18 16:49 01/03/18 20:09 01/04/18 00:35 01/04/18 06:00 Glucose (Fingerstick) 123 mg/dL (70-99) 171 mg/dL (70-99) 118 mg/dL (70-99) White Blood Count 6.3 x10^3/uL (4.0-11.0) Red Blood Count 3.54 x10^6/uL (3.50-5.40) Hemoglobin 10.0 g/dL (12.0-15.5) Hematocrit 30.2 % (36.0-47.0) Mean Corpuscular Volume 85 fL (79-100) Mean Corpuscular Hemoglobin 28 pg (25-35) Mean Corpuscular Hemoglobin Concent 33 g/dL (31-37) Red Cell Distribution Width 15.5 % (11.5-14.5) Platelet Count 123 x10^3/uL (140-400) Sodium Level 138 mmol/L (136-145) Potassium Level 3.9 mmol/L (3.5-5.1) Chloride Level 100 mmol/L (98-107) Carbon Dioxide Level 30 mmol/L (21-32) Anion Gap 8 (6-14) Blood Urea Nitrogen 35 mg/dL (7-20) Creatinine 2.2 mg/dL (0.6-1.0) Estimated GFR (Cockcroft-Gault) 25.5 Glucose Level 64 mg/dL (70-99) Calcium Level 8.7 mg/dL (8.5-10.1) Troponin I Quantitative < 0.017 ng/mL (0-0.055) Test 01/04/18 07:32 Glucose (Fingerstick) 98 mg/dL (70-99) UMAIR DONALD MD 01/04/18 0954: CONSULT Assessment/Plan I have personally seen and examined the patient, and I agree with above. Briefly, Ms. Noriega is a very pleasant 87-year-old female who usually follows with Dr. Dunn. The patient does have a history of coronary artery disease, heart failure with preserved ejection fraction, paroxysmal atrial fibrillation managed with rate control and chronic anticoagulation with Eliquis, essential hypertension, mixed hyperlipidemia, diabetes mellitus type 2, history of DVT, chronic kidney disease stage 4, and chronic anemia. Apparently, the patient underwent a recent invasive cardiovascular evaluation by Dr. Dunn earlier this year. I am told that no intervention was thought to be necessary at that time. Unfortunately, I do not have these records available to me to review today. The patient presented over the weekend with a several day history of progressively worsening symptoms of shortness of breath. Her workup did demonstrate moderately elevated BNP. She denies any associated chest pains. She has not had any significant palpitations, lightheadedness, or syncope. A chest x-ray was performed which was unremarkable, and a CT of the chest was also noted to be unremarkable demonstrating evidence of extensive coronary artery disease, but no significant pulmonary process. As a result, the patient was started on IV Lasix. Today, the patient reports that her symptoms have improved significantly. She does appear to be more euvolemic. The patient is otherwise doing well today, has no other particular complaints. 14-point organ system ROS is negative other than as described above. FH and SH as above. Physical Exam: General: Alert and oriented X3, No acute distress. Eye: Pupils are equal, round and reactive to light. HENT: Normocephalic. Neck: Supple, Non-tender. Respiratory: Lungs are clear to auscultation. No wheezes or crackles. Cardiac: Normal rate. Vascular: No carotid bruits. No JVD. Normal bilateral radial pulses. Normal bilateral femoral pulses. Normal bilateral pedal pulses. Gastrointestinal: Soft, Non-tender, No organomegaly. Normal bowel sounds. Musculoskeletal: Normal range of motion, Normal strength. Integumentary: Warm, Dry, No rash. Neurologic: Alert, Oriented, No focal deficits. Psychiatric: Cooperative, Appropriate mood & affect. Impression/plan; 1. Acute on chronic diastolic heart failure, improved 2. HFpEF 3. CAD 4. Paroxysmal atrial fibrillation, on chronic anticoagulation with Eliquis 5. Essential hypertension 6. Mixed hyperlipidemia 7. DMII 8. GERD 9. History of DVT 10. History of CVA 11. SSS s/p PPM 12. Abnormal ECG Ms. Noriega is currently hospitalized after presenting with symptoms of progressively worsening shortness of breath. Workup has been most consistent with evidence of an acute on chronic diastolic congestive heart failure exacerbation. The patient was started appropriately on IV Lasix over the weekend. Her volume status has improved considerably over the last couple of days. This morning, the patient does appear to be mostly euvolemic. Patient does have chronic renal insufficiency, and it is noted that her renal function is worsening with ongoing aggressive diuresis. As a result, I think it would be reasonable to discontinue her IV Lasix today, and transition her back to her home regimen of Lasix 40 mg p.o. daily. Of note, the patient reports that she underwent an extensive invasive cardiovascular evaluation by her primary user experience architect, Dr. Dunn, earlier this year. Unfortunately, do not have these records available to review at the moment. I have asked my office to obtain these records for further evaluation. In the meantime, I agree with continue the rest of her home cardiac regimen as prescribed. At this point in time, I do not think any further inpatient cardiac diagnostic testing is necessary. Once patient is stable for discharge, she will need to follow up with her primary user experience architect in a few weeks time. GABINO SULLIVAN APRN Jan 04, 2018 08:44 UMAIR DONALD MD Jan 04, 2018 09:54
[2018-01-04] MEDS: ACETAMINOPHEN 325 MG TABLET PO PRN (08:57)
[2018-01-04] MEDS: METOPROLOL TART IMMED RELEASE 25 MG TABLET PO SCH ×2 (08:58→20:40)
[2018-01-04] MEDS: LIDOCAINE (700MG/PATCH) PATCH. TD SCH (08:58)
[2018-01-04] MEDS: MAGNESIUM OXIDE 400 MG TABLET PO SCH (08:58)
[2018-01-04] MEDS: SERTRALINE 50 MG TABLET. PO SCH (08:58)
[2018-01-04] MEDS: ALLOPURINOL 100 MG TABLET. PO SCH (08:58)
[2018-01-04] MEDS: GLIMEPIRIDE 2 MG TABLET PO SCH (08:58)
[2018-01-04] MEDS: APIXABAN 2.5 MG TABLET PO SCH ×2 (08:58→20:40)
[2018-01-04] MEDS: PANTOPRAZOLE 40 MG TABLET. PO SCH (08:58)
[2018-01-04] MEDS: FUROSEMIDE 40 MG TABLET PO SCH (11:04)
--- NOTE | 2018-01-04 11:37 | PN ---
DATE: 01/03/2018 SUBJECTIVE: The patient continued to complain of retrosternal chest discomfort and also feeling dizzy when she walks. Apparently, she was seen by Dr. Dunn before and he did what seems to be a transfusion echocardiogram and he talked about some inflammation or narrowing of her esophagus. We did actually orthostatics and her blood pressure lying was 140/70 with a heart rate of 50. Her blood pressure sitting was 135/87 with heart rate of 72 and standing her blood pressure dropped down to 102/55 with a heart rate of 71, clearly showed that she has marked postural hypertension, probably aggravated by diuretics. She has had a chest x-ray done again today and basically showed that the cardiac silhouette is stable. Pacemaker redemonstrated. Degenerative changes at the shoulders. No pneumothorax, pleural effusion or focal airspace consolidation. PHYSICAL EXAMINATION: GENERAL: When I examined her today, she looked pale, but no jaundice, cyanosis, or thyromegaly. No jugular venous distension. No lower limb edema. VITAL SIGNS: Her heart rate was 87, blood pressure as we did orthostatics demonstrate dramatic blood pressure with difference of more than almost 35 mm between lying and standing. Her respiratory rate was 18 and oxygen saturation was 96% on 2 liters of oxygen. HEAD, EYES, EARS, NOSE AND THROAT: Showed normocephalic, atraumatic. NECK: Supple. HEART: Showed normal first and second heart sounds with no gallop, rub or murmur. CHEST: Clear to auscultation. No crepitation or rhonchi. ABDOMEN: Distended, soft, nontender. No guarding or rigidity. No organomegaly. All hernial orifice intact. Bowel sounds normal. NEUROLOGIC: She was awake, alert, responding appropriately. All cranial nerves intact. She moves extremities without difficulty, but she was very unsteady when she stood up, although she managed to stand well as to check her blood pressure. Her intake was over the last 24 hours was 1440, output was 2350. LABORATORY DATA: Her lab work this morning showed a white cell count of 8000, hemoglobin 10, hematocrit 30, MCV 86 and platelet count of 109,000. Her chemistry showed a serum sodium 138, potassium 4.2, chloride 101, bicarbonate 31, anion gap of 7, BUN 28, creatinine 2.1, estimated GFR was 27. Her blood sugar was 111, calcium was 8.5. Total bilirubin, AST, ALT, alkaline phosphatase were normal. Total protein 7, albumin was 3. ASSESSMENT: In summary, this is an 87-year-old -[place] female patient, who continued to complain of this retrosternal chest discomfort. We did her first set of cardiac enzyme was less than 0.017. She continued to have dizziness and she has marked postural hypertension, probably aggravated by diuretics, so my plan is to discontinue the Lasix altogether for now as her BUN and creatinine are slightly risen from her baseline. I will arrange for her to have a CT scan of the chest without contrast and echocardiogram and esophagogram and do another set of cardiac enzyme. I do not mature she is a candidate for any ischemic workup given her age and impaired kidney function. JAMES MULTANI MD DR: ESTEPHANIA/deepak JOB#: [id number] / [id number]
--- NOTE | 2018-01-04 12:51 | CARD ---
MR#: [id number] Date of Study: 01/04/2018 Ordering Physician: JAMES MULTANI, Referring Physician: JAMES MULTANI Tech: Rica Bonner RDCS APPROVED REPORT EXAM: Two-dimensional and M-mode echocardiogram with Doppler and color Doppler. Other Information Quality : Good INDICATION R/O Pericarditis Surgery/Intervention Pacemaker: 2D DIMENSIONS RVDd2.8 (2.9-3.5cm)Left Atrium(2D)3.9 (1.6-4.0cm) IVSd1.6 (0.7-1.1cm)Aortic Root(2D)2.7 (2.0-3.7cm) LVDd4.3 (3.9-5.9cm)LVOT Diameter2.0 (1.8-2.4cm) PWd1.3 (0.7-1.1cm)LVDs2.6 (2.5-4.0cm) FS (%) 30.0 %SV58.5 ml LVEF(%)60.0 (>50%) Aortic Valve AoV Peak Dylan.192.9cm/sAoV VTI36.3cm AO Peak GR.14.9mmHgLVOT Peak Dylan.127.1cm/s LVOT VTI 28.90cmAO Mean GR.7mmHg GERARDO (VMAX)2.12kk7PMY (VTI)2.44cm2 AI P 1/2 Kdsh814vu Mitral Valve MV E Ihzmmdoj819.2cm/sMV DECEL UXOF931xj MV A Uwrctsbp34.6cm/sE/A Ratio2.5 Tricuspid Valve TR P. Meguxyiy879qp/sRAP WVQGDPEZ4coJu TR Peak Gr.30bkBbMASA92nfHq Pulmonary Vein S1 Sghhbyne55.7cm/sD2 Xtfjvttv99.7cm/s LEFT VENTRICLE The left ventricle is normal size. There is mild to moderate concentric left ventricular hypertrophy. The left ventricular systolic function is normal and the ejection fraction is within normal range. T he Ejection Fraction is 60%. Apical motion consistent with pacemaker activation. Transmitral Doppler flow pattern is Grade II-pseudonormal filling dynamics. RIGHT VENTRICLE The right ventricle is normal size. The right ventricular systolic function is normal. There is a pac emaker lead in the right ventricle. ATRIA The left atrium size is normal. The right atrium size is normal. A pacemaker is seen in the right atr ium consistent with history. The interatrial septum is intact with no evidence for an atrial septal d efect or patent foramen ovale as noted on 2-D or Doppler imaging. AORTIC VALVE The aortic valve is calcified but opens well. Doppler and Color Flow revealed mild aortic regurgitati on. There is no significant aortic valvular stenosis. MITRAL VALVE The mitral valve is calcified but opens well. There is no evidence of mitral valve prolapse. There is no mitral valve stenosis. Doppler and Color-flow revealed mild mitral regurgitation. TRICUSPID VALVE The tricuspid valve is normal in structure and function. Doppler and Color Flow revealed moderate tri cuspid regurgitation. There is moderate to severe pulmonary hypertension. The PA pressure was estimat ed at 73 mmHg. There is no tricuspid valve stenosis. PULMONIC VALVE The pulmonic valve is not well visualized. Doppler and Color Flow revealed no pulmonic valvular regur gitation. There is no pulmonic valvular stenosis. GREAT VESSELS The aortic root is normal in size. The ascending aorta is normal in size. The IVC is normal in size a nd collapses >50% with inspiration. PERICARDIAL EFFUSION There is no evidence of significant pericardial effusion. Critical Notification Critical Value: No <Conclusion> The left ventricular systolic function is normal and the ejection fraction is within normal range. The Ejection Fraction is 60%. Transmitral Doppler flow pattern is Grade II-pseudonormal filling dynamics. The right ventricular systolic function is normal. There is a pacemaker lead in the right ventricle. Doppler and Color Flow revealed mild aortic regurgitation. Doppler and Color Flow revealed moderate tricuspid regurgitation. There is moderate to severe pulmonary hypertension. The PA pressure was estimated at 73 mmHg. There is no evidence of significant pericardial effusion. Signed by : Krystin Reynoso, Electronically Approved : 01/04/2018 12:49:43
--- NOTE | 2018-01-04 15:50 | RAD ---
ESOPHAGRAM 01/04/2018. Reason for study: Difficulty swallowing. 1.2 minutes flouro time. Comparison studies: None. Technique: Esophagram was performed utilizing double contrast upright examination, single contrast prone examination, and cine evaluation of cervical esophageal swallow function. Fluoroscopy time: 1.2 minutes Number of images: 29 images Findings: Cardiomediastinal silhouette is borderline enlarged. Left chest wall cardiac device is identified with leads projecting over the right atrium and right ventricle. Lungs are clear. No pulmonary vascular congestion. No pleural effusions or pneumothorax. Anterior cervical discectomy and fusion hardware is identified at C6-C7. Barium swallow was performed without difficulty. Esophageal peristalsis and motility were normal. No mucosal abnormalities. No gastroesophageal reflux or hiatal hernia. No esophageal diverticulum. Fundus of the stomach was unremarkable. IMPRESSION: Normal esophagram. Electronically signed by: Yoko Peoples MD (01/04/2018 3:47 PM) [facility]
[2018-01-04] MEDS: ATORVASTATIN CALCIUM 10 MG TABLET. PO SCH (20:39)
[2018-01-04] MEDS: traZODone 50 MG TABLET. PO SCH (20:39)
[2018-01-04] MEDS: rOPINIRole 0.25 MG TABLET. PO SCH (20:40)
[2018-01-04] MEDS: INSULIN GLARGINE 300 UNITS/3 ML INSULN.PEN. SQ SCH (20:45)
--- NOTE | 2018-01-05 05:13 | PN ---
DATE: 01/04/2018 SUBJECTIVE: The patient is sitting in her chair comfortably in no apparent distress. She apparently has been very tired this morning, felt unwell, but generally by the time I saw her in the afternoon, she was doing fine. She has no evidence of orthostatic hypotension. Her CT scan of the chest done yesterday showed no acute lung infiltrate and she had had an echocardiogram today, which basically showed that she her left ventricular systolic function is normal and her ejection fraction is within normal range. Ejection fraction is 60%. Transmitral Doppler flow pattern is grade 2 through normal feeling dynamics. The right ventricular systolic function is normal. There is a pacemaker lead in the right ventricle. Doppler and color flow revealed mild aortic regurgitation, moderate tricuspid regurgitation and severe pulmonary hypertension. Her pulmonary artery systolic pressure was 73 mmHg with no evidence of significant pericardial effusion. We did order barium swallow, results of which is still pending at the time of this dictation. PHYSICAL EXAMINATION: GENERAL: When I examined her, she looked well and was clearly in no apparent respiratory distress, slightly pale, but no jaundice, cyanosis, or thyromegaly. No jugular venous distention. No limb edema. VITAL SIGNS: Her heart rate was 77, blood pressure 114/61, temperature was 97.9, respiratory rate 20, and oxygen saturation was 97% on room air. HEAD, EYES, EARS, NOSE AND THROAT: Normocephalic, atraumatic. NECK: Supple. HEART: Showed normal first and second heart sounds with no gallop, rub or murmur. CHEST: Clear to auscultation. No crepitation or rhonchi. ABDOMEN: Distended, soft, nontender. No guarding or rigidity. No organomegaly. Hernial orifice intact. Bowel sounds normal. NEUROLOGICAL: She was awake, alert, responding appropriately. Her cranial nerves intact. She moves extremities without difficulty. She ambulates with a walker. Her intake was 1280, output was 1150. LABORATORY DATA: As of this morning, her white cell count was 6300; hemoglobin 10; hematocrit 30; MCV 85 and platelet count of 123,000. Her chemistry showed a serum sodium 138, potassium 3.9, chloride 100, bicarbonate 30, anion gap of 8, BUN 35, creatinine 2.2. Estimated GFR was 26 mL per minute. Her glucose was 64, calcium was 8.7. ASSESSMENT: 1. Acute on chronic diastolic heart failure, improved heart failure, preserved ejection fraction, coronary artery disease. 2. Paroxysmal atrial fibrillation, on chronic anticoagulation with Eliquis. 3. Essential hypertension, well controlled. 4. Hyperlipidemia. 5. Type 2 diabetes. So far, all labs and tests are stable. No evidence of any source of chest pain, probably noncardiac. Await barium swallow and if it becomes available, we can discharge her home. The Cardiology team did not recommend any further cardiac diagnostic testing. JAMES MULTANI MD DR: ESTEPHANIA/deepak JOB#: [id number] / [id number]
[2018-01-05 05:59] VITALS: BP 144/75
[2018-01-05] MEDS: PANTOPRAZOLE 40 MG TABLET. PO SCH (07:53)
[2018-01-05] MEDS: APIXABAN 2.5 MG TABLET PO SCH (08:31)
[2018-01-05] MEDS: METOPROLOL TART IMMED RELEASE 25 MG TABLET PO SCH (08:31)
[2018-01-05] MEDS: GLIMEPIRIDE 2 MG TABLET PO SCH (08:31)
[2018-01-05] MEDS: FUROSEMIDE 40 MG TABLET PO SCH (08:31)
[2018-01-05] MEDS: SERTRALINE 50 MG TABLET. PO SCH (08:32)
[2018-01-05] MEDS: LIDOCAINE (700MG/PATCH) PATCH. TD SCH (08:32)
[2018-01-05] MEDS: ALLOPURINOL 100 MG TABLET. PO SCH (08:32)
[2018-01-05] MEDS: MAGNESIUM OXIDE 400 MG TABLET PO SCH (08:32)
--- NOTE | 2018-01-05 09:43 | PDOC ---
GABINO CHIAREZ PREDATOR CONTROL TRAPPER 01/05/18 0943: PROGRESS NOTES Diagnosis Problem Problems Medical Problems: (1) CHF (congestive heart failure) Status: Acute Assessment Problems Medical Problems: (1) CHF (congestive heart failure) Status: We are seeing the patient for diastolic heart failure Chronic congestive heart failure with preserved ejection fraction. Clinically compensated. Tolerating oral lasix. Stable for discharge. She will follow up with Dr Dunn. Paroxysmal atrial fibrillation - She is currently maintaining sinus rhythm. Continue Eliquis for anticoagulation and metoprolol for rhythm/rate maintenance. Coronary artery disease. She is not presently having angina. She had a recent catheterization that did not show any coronary disease that required revascularization. Requested records - not available yet. Hypercholesterolemia. The patient should be continued on her atorvastatin. Sick sinus syndrome. The patient's pacemaker appears to be functioning normally. 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 Continue to follow Anemia of chronic disease likely related to chronic kidney disease stage 3/4 Subjective Sitting up in chair and doing well. She denies any chest pain or palpitations. Breathing is better and only feels when she walks to the [place]. Negative for PND, orthopnea, or edema. Slept well with good appetite Objective Vital Signs Date Time Temp Pulse Resp B/P (MAP) Pulse Ox O2 Delivery O2 Flow Rate FiO2 01/05/18 08:31 60 144/75 01/05/18 08:00 Nasal Cannula 2.0 01/05/18 05:59 98.2 16 97 Intake and Output 01/05/18 07:00 Intake Total 680 ml Output Total 1300 ml Balance -620 ml Intake Oral 680 ml Output Urine Total 1300 ml # Voids 2 # Bowel Movements 1 Abdomen: Normal bowel sounds, Soft, No tenderness Heart: Regular rate, Normal S1, Normal S2, No murmurs Extremities: No edema, Normal pulses General: Alert, Oriented X3, Cooperative HEENT: EOMI, Mucous membr. moist/pink Lungs: Normal air movement Psych/Mental Status: Mental status NL, Mood NL Review of Relevant I have reviewed the following items alisha (where applicable) has been applied. Labs Laboratory Tests Test 01/03/18 12:02 01/03/18 14:40 01/03/18 16:49 01/03/18 20:09 Glucose (Fingerstick) 160 mg/dL (70-99) 123 mg/dL (70-99) 171 mg/dL (70-99) Troponin I Quantitative < 0.017 ng/mL (0-0.055) Test 01/04/18 00:35 01/04/18 06:00 01/04/18 07:32 01/04/18 11:19 Glucose (Fingerstick) 118 mg/dL (70-99) 98 mg/dL (70-99) 129 mg/dL (70-99) White Blood Count 6.3 x10^3/uL (4.0-11.0) Red Blood Count 3.54 x10^6/uL (3.50-5.40) Hemoglobin 10.0 g/dL (12.0-15.5) Hematocrit 30.2 % (36.0-47.0) Mean Corpuscular Volume 85 fL (79-100) Mean Corpuscular Hemoglobin 28 pg (25-35) Mean Corpuscular Hemoglobin Concent 33 g/dL (31-37) Red Cell Distribution Width 15.5 % (11.5-14.5) Platelet Count 123 x10^3/uL (140-400) Sodium Level 138 mmol/L (136-145) Potassium Level 3.9 mmol/L (3.5-5.1) Chloride Level 100 mmol/L (98-107) Carbon Dioxide Level 30 mmol/L (21-32) Anion Gap 8 (6-14) Blood Urea Nitrogen 35 mg/dL (7-20) Creatinine 2.2 mg/dL (0.6-1.0) Estimated GFR (Cockcroft-Gault) 25.5 Glucose Level 64 mg/dL (70-99) Calcium Level 8.7 mg/dL (8.5-10.1) Troponin I Quantitative < 0.017 ng/mL (0-0.055) Test 01/04/18 16:29 01/04/18 20:37 01/05/18 06:46 01/05/18 07:19 Glucose (Fingerstick) 136 mg/dL (70-99) 153 mg/dL (70-99) 52 mg/dL (70-99) 86 mg/dL (70-99) Microbiology 01/01/18 Urine Culture - Final, Complete 01/01/18 Urine Culture Result 1 (CLAUDIO) - Final, Complete Medications Current Medications Albuterol Sulfate (Ventolin) 2.5 mg STK-MED ONCE .ROUTE ; Start 01/01/18 at 15:18 ; Stop 01/01/18 at 15:19; Status DC Furosemide (Lasix) 40 mg 1X ONCE IVP Last administered on 01/01/18at 18:30; Start 01/01/18 at 18:15; Stop 01/01/18 at 18:16; Status DC Ondansetron HCl (Zofran Odt) 4 mg PRN Q4HRS PRN PO NAUSEA/VOMITING; Start at 19:30 Acetaminophen (Tylenol) 650 mg PRN Q4HRS PRN PO FEVER Last administered on at 09:17; Start 01/01/18 at 19:15; Stop 01/02/18 at 19:14; Status DC Albuterol/ Ipratropium (Duoneb) 3 ml RTQID NEB Last administered on 01/02/18at 16 :31; Start 01/01/18 at 20:00; Stop 01/02/18 at 19:59; Status DC Trazodone HCl (Desyrel) 50 mg QHS PO Last administered on 01/04/18at 20:39; Start 01/01/18 at 21:00 Apixaban (Eliquis) 2.5 mg BID PO Last administered on 01/05/18at 08:31; Start 01/01/18 at 21:00 Furosemide (Lasix) 40 mg BID IVP Last administered on 01/02/18at 08:46; Start 01/01/18 at 21:00; Stop 01/02/18 at 14:27; Status DC Senna/Docusate Sodium (Senna Plus) 1 tab PRN BID PRN PO CONSTIPATION; Start 01/01/18 at 21:00 Sertraline HCl (Zoloft) 50 mg DAILY PO Last administered on 01/05/18at 08:32; Start 01/02/18 at 09:00 Allopurinol (Zyloprim) 100 mg DAILY PO Last administered on 01/05/18at 08:32; Start 01/02/18 at 09:00 Alprazolam (Xanax) 0.25 mg PRN TID PRN PO ANXIETY / AGITATION; Start 01/01/18 at 21:15 Atorvastatin Calcium (Lipitor) 10 mg QHS PO Last administered on 01/04/18 20:39 ; Start 01/01/18 at 21:00 Vitamin D (Vitamin D3) 5,000 unit WEEKLY PO Last administered on 01/02/18 08:48 ; Start 01/02/18 at 09:00 Glimepiride (Amaryl) 4 mg DAILY PO Last administered on 01/05/18 08:31; Start 01/02/18 at 09:00 Insulin Glargine (Lantus) 20 units QHS SQ Last administered on 01/04/18 20:45; Start 01/02/18 at 21:00 Lidocaine (Lidoderm) 1 patch DAILY TD Last administered on 01/04/18 08:58; Start 01/02/18 at 09:00 Magnesium Oxide (Magnesium Oxide) 400 mg DAILY PO Last administered on 08:32; Start 01/02/18 at 09:00 Meclizine HCl (Antivert) 12.5 mg PRN TID PRN PO DIZZINESS; Start 01/01/18 at 21: 15; Stop 01/01/18 at 21:15; Status DC Metoprolol Tartrate (Lopressor) 25 mg BID PO Last administered on 01/05/18 08: 31; Start 01/01/18 at 21:00 Pantoprazole Sodium (Protonix) 40 mg DAILYAC PO Last administered on 01/05/18 07:53; Start 01/02/18 at 07:30 Ropinirole HCl (Requip) 0.25 mg QHS PO Last administered on 01/04/18 20:40; Start 01/01/18 at 21:00 Meclizine HCl (Antivert) 25 mg TID PRN PRN PO DIZZINESS; Start 01/01/18 at 21:15 Furosemide (Lasix) 40 mg DAILY IVP Last administered on 01/03/18 09:12; Start 01/03/18 at 09:00; Stop 01/03/18 at 14:30; Status DC Acetaminophen (Tylenol) 650 mg PRN Q4HRS PRN PO PAIN / TEMP Last administered on 01/04/18 08:57; Start 01/02/18 at 19:30 Furosemide (Lasix) 40 mg DAILY PO Last administered on 01/05/18at 08:31; Start at 09:45 Active Scripts Active Meclizine Hcl 25 Mg Tablet 1 Tab PO PRN TID NEXT DOSE DUE: DATE: TODAY TIME: IF NEEDED Furosemide 40 Mg Tablet 40 Mg PO DAILY Trazodone Hcl 50 Mg Tablet 50 Mg PO HS 90 Days Requip (Ropinirole Hcl) 0.25 Mg Tablet 0.25 Mg PO HS 90 Days Pantoprazole Sodium 40 Mg Tablet.dr 40 Mg PO DAILYAC 90 Days Lidocaine 1 Each Adh..patch 1 Patch TD DAILY 60 Days Allopurinol 100 Mg Tablet 1 Tab PO DAILY Reported Sertraline Hcl 50 Mg Tablet 50 Mg PO DAILY Toutylor Solostar (Insulin Glargine,Hum.rec.anlog) 300 Unit/1 Ml Insuln.pen 20 Unit SQ HS Duoneb 0.5-3(2.5) Mg/3 Ml (Albuterol/Ipratropium) 3 Ml Ampul.neb 3 Ml NEB PRN Q6HRS PRN LAST DOSE GIVEN: DATE: TODAY TIME: AM NEXT DOSE DUE: DATE: TODAY TIME: AFTERNOON Atorvastatin Calcium 10 Mg Tablet 1 Tab PO HS LAST DOSE GIVEN: DATE: YESTER TIME: AT BEDTIME NEXT DOSE DUE: DATE: TODAY TIME: AT BEDTIME Tylenol (Acetaminophen) 325 Mg Tablet 2 Tab PO PRN Q6HRS PRN NEXT DOSE DUE: DATE: TODAY TIME: IF NEEDED Senokot-S Tablet (Sennosides/Docusate Sodium) 1 Each Tablet 1 Tab PO BID PRN LAST DOSE GIVEN: DATE: TODAY TIME: AM NEXT DOSE DUE: DATE: TODAY TIME: PM Bystolic (Nebivolol Hcl) 5 Mg Tablet 1 Tab PO HS LAST DOSE GIVEN: DATE: TIME: AT BEDTIME NEXT DOSE DUE: DATE: TODAY TIME: AT BEDTIME Magnesium Oxide 400 Mg Tablet 1 Tab PO DAILY LAST DOSE GIVEN: DATE: TODAY TIME: AM NEXT DOSE DUE: DATE: TOMORROW TIME: AM Glimepiride 4 Mg Tablet 1 Tab PO DAILY LAST DOSE GIVEN: DATE: TODAY TIME: AM NEXT DOSE DUE: DATE: TOMORROW TIME: AM NITROGLYCERIN SubLingual (Nitroglycerin) 0.4 Mg Tab.subl 0.4 Mg SL PRN Q5MIN PRN NEXT DOSE DUE: DATE: TODAY TIME: IF NEEDED NEXT DOSE DUE: DATE: as needed for chest pain TIME: Xanax (Alprazolam) 0.25 Mg Tablet 0.25 Mg PO PRN TID PRN NEXT DOSE DUE: DATE: TODAY TIME: IF NEEDED NEXT DOSE DUE: DATE: 01/02/17 TIME: 0900 Eliquis (Apixaban) 2.5 Mg Tablet 0.5 Tab PO BID LAST DOSE GIVEN: DATE: TODAY TIME: AM NEXT DOSE DUE: DATE: TODAY TIME: PM Vitamin D (Cholecalciferol (Vitamin D3)) 2,000 Unit Capsule 5,000 Unit PO WEEKLY Continue taking on your weekly schedule DATE: 04/18/17 TIME: 09 NEXT DOSE DUE: DATE: 04/25/17 TIME: 899 Vitals/I & O Vital Sign - Last 24 Hours 01/04/18 01/04/18 01/04/18 01/04/18 11:00 14:33 19:11 19:49 Temp 98.3 97.9 97.9 Pulse 75 77 72 Resp 20 20 20 B/P (MAP) 147/75 (99) 114/61 (78) 126/65 (85) Pulse Ox 96 97 96 O2 Delivery Room Air Room Air Room Air Nasal Cannula O2 Flow Rate 2.0 01/04/18 01/04/18 01/05/18 01/05/18 20:40 22:22 05:59 08:00 Temp 97.7 98.2 Pulse 72 72 60 Resp 20 16 B/P (MAP) 126/65 146/68 (94) 144/75 (98) Pulse Ox 96 97 O2 Delivery Room Air Room Air Nasal Cannula O2 Flow Rate 2.0 01/05/18 08:31 Pulse 60 B/P (MAP) 144/75 Intake and Output 01/04/18 01/04/18 01/05/18 15:00 23:00 07:00 Intake Total 680 ml Output Total 900 ml 400 ml Balance -220 ml -400 ml CAROL ALLEN Jr, MD 01/06/18 1230: PROGRESS NOTES Assessment The patient was seen by Gabino Chairez APRN and i have reviewed her findings and plan and agree with above. Due to staffing constraints, we did not have an attending available on this day to see the patient. MD LAURIE Knowles Jr., JANAE M APRN Jan 05, 2018 09:43 CAROL ALLEN Jr, MD Jan 06, 2018 12:30
[2018-01-05 10:42] VITALS: BP 125/49
--- NOTE | 2018-01-05 12:20 | DS ---
DATE OF DISCHARGE: 01/05/2018 HOSPITAL COURSE: The patient is an 87-year-old -[place] female patient, who was admitted with shortness of breath and chest discomfort. We treated her aggressively with diuresis and had extensive investigation as far as her chest discomfort is concerned. Her 3 sets of cardiac enzymes are negative. She had a CT scan of the chest showed no abnormality and she did have barium swallow, which showed that she has basically normal esophagogram. The cardiomediastinal silhouette is borderline enlarged. Left chest wall cardiac device is identified with leads projecting over the right atrium and right ventricle. Lungs are clear. No pulmonary vascular congestion, no pleural effusion or pneumothorax. Anterior cervical diskectomy and fusion hardware is identified at C5, C6, C7. Barium swallow was performed without difficulty. Esophageal peristalsis and motility were normal. No mucosal abnormalities. No gastroesophageal reflux or hiatal hernia. No CVA or diverticulum. Fundus of the stomach was unremarkable. The patient was seen in consultation also by the tight barrel inspector and their recommendation was the patient can be discharged safely and there is no indication for any further ischemic workup. She is back to her baseline. PHYSICAL EXAMINATION: GENERAL: When I saw her today, she looked well and was clearly in no apparent respiratory distress, slightly pale, no jaundice, cyanosis, or thyromegaly. No jugular venous distension. No limb edema. VITAL SIGNS: Her heart rate was 74, blood pressure 125/49, temperature was 98, respiratory rate was 16 and oxygen saturation was 99% on room air. HEAD, EYES, EARS, NOSE AND THROAT: Showed normocephalic, atraumatic. NECK: Supple. HEART: Showed normal first and second sounds. No gallop, rub or murmur. CHEST: Clear to auscultation. No crepitation or rhonchi. ABDOMEN: Distended, soft, nontender. NEUROLOGIC: She was awake, alert, responding. She was sitting comfortably in her chair in no apparent distress. She is awake, alert, responding appropriately. All cranial nerves intact. She moves extremities without difficulty. She ambulates with a walker. Her intake over the last 24 hours was 1160, output was 1600. Her blood sugar has been within acceptable range. Her most recent serum sodium was 138, potassium 3.9, chloride 100, bicarbonate 30, anion gap of 8, BUN 35, creatinine 2.2, estimated GFR was 26 mL per minute. Her glucose was 64, calcium was 8.7. Her white cell count was 6300, hemoglobin 10, hematocrit 30, MCV 85 and platelet count of 123,000. DISCHARGE MEDICATIONS: The patient was discharged home to continue on the following medications: Tylenol 650 mg every 6 hours, allopurinol 100 mg once a day, alprazolam for Xanax 0.25 mg 3 times a day, apixaban for Eliquis 2.5 mg 3 times a day, atorvastatin calcium 10 mg at bedtime, cholecalciferol vitamin D3 5000 units orally weekly, furosemide 40 mg once a day, glimepiride 4 mg daily. She is on Lantus insulin 20 units at bedtime, ipratropium bromide, albuterol sulfate every 6 hours as needed, Lidoderm patch apply topically on for 12 hours and off for 12 hours, magnesium oxide 400 mg daily, meclizine 25 mg 3 times a day as needed, Bystolic 5 mg once a day, Protonix 40 mg daily, Requip 0.25 mg at bedtime, Senna S 1 tablet twice a day, sertraline 50 mg daily, trazodone 50 mg at bedtime. FINAL DISCHARGE DIAGNOSES: 1. Acute on chronic diastolic congestive heart failure. 2. Paroxysmal atrial fibrillation, rate controlled, well anticoagulated. 3. Coronary artery disease and no evidence of angina and her most recent catheterization did not show any coronary artery disease that required revascularization. 4. Hypercholesterolemia for which atorvastatin. 5. Sick sinus syndrome for which had permanent pacemaker. 6. Chronic respiratory failure. She is oxygen dependent. 7. Chronic kidney disease, stable. 8. Anemia of chronic kidney disease. JAMES MULTANI MD DR: ESTEPHANIA/deepak JOB#: [id number] / [id number]
== END 2018-01-05 13:15 | disposition home health service (06) | DRG 291 ==
LOC: ER 14:59 → 1 SOUTH 18:00
PROVIDERS: ADMIT Internal Medicine; ATTEND Internal Medicine
DX: I13.0 Hypertensive heart and chronic kidney disease with heart failure and stage 1 through stage 4 chronic kidney disease, or unspecified chronic kidney disease (principal); I50.33 Acute on chronic diastolic (congestive) heart failure; J96.10 Chronic respiratory failure, unspecified whether with hypoxia or hypercapnia; E11.22 Type 2 diabetes mellitus with diabetic chronic kidney disease; N18.4 Chronic kidney disease, stage 4 (severe); E11.51 Type 2 diabetes mellitus with diabetic peripheral angiopathy without gangrene; I49.5 Sick sinus syndrome; I08.2 Rheumatic disorders of both aortic and tricuspid valves; I27.20 Pulmonary hypertension, unspecified; Z96.649 Presence of unspecified artificial hip joint; Z96.653 Presence of artificial knee joint, bilateral; D63.1 Anemia in chronic kidney disease; I25.10 Atherosclerotic heart disease of native coronary artery without angina pectoris; E78.2 Mixed hyperlipidemia; I48.0 Paroxysmal atrial fibrillation; K21.9 Gastro-esophageal reflux disease without esophagitis; M15.9 Polyosteoarthritis, unspecified; Z86.73 Personal history of transient ischemic attack (TIA), and cerebral infarction without residual deficits; Z86.718 Personal history of other venous thrombosis and embolism; Z79.01 Long term (current) use of anticoagulants; Z90.49 Acquired absence of other specified parts of digestive tract; Z95.0 Presence of cardiac pacemaker; Z99.81 Dependence on supplemental oxygen; Z87.01 Personal history of pneumonia (recurrent); Z79.899 Other long term (current) drug therapy; Z88.1 Allergy status to other antibiotic agents; Z88.0 Allergy status to penicillin; Z88.7 Allergy status to serum and vaccine; Z88.8 Allergy status to other drugs, medicaments and biological substances
CPT/HCPCS: 36415; 71045; 71046; 71250; 74220; 80048; 80053; 81001; 82947; 83880; 84484; 85025; 85027; 87086; 93005; 93306; 94640; 96374; J1815; J1940; J7620; 97530; 99285-25

== ENCOUNTER 2018-01-10 12:24 | Emergency (ER) | payer MEDICARE, OTHER ==
[~2018-01-10] VITALS: Ht 162.6 cm; Wt 88.7 kg
[~2018-01-10 12:24] MED LIST changes: +SERT50TA8 PO
[2018-01-10 12:32] VITALS: BP 125/49
[2018-01-10 12:57] LABS: BASO # 0.1 x10^3/uL (0.0-0.2); BASO % 1 % (0-3); EOS # 0.3 x10^3/uL (0.0-0.7); EOS % 4 % (0-3); HEMATOCRIT 28.9 % (36.0-47.0); HEMOGLOBIN 9.4 g/dL (12.0-15.5); LYMPH # 1.7 x10^3/uL (1.0-4.8); LYMPH % 23 % (24-48); MEAN CORPUSCULAR HEMOGLOBIN 28 pg (25-35); MEAN CORPUSCULAR HGB CONC 33 g/dL (31-37); MEAN CORPUSCULAR VOLUME 87 fL (79-100); MONO # 0.5 x10^3/uL (0.0-1.1); MONO % 7 % (0-9); NEUT % 66 % (31-73); PLATELET COUNT 267 x10^3/uL (140-400); RED BLOOD COUNT 3.33 x10^6/uL (3.50-5.40); RED CELL DISTRIBUTION WIDTH 15.6 % (11.5-14.5); WHITE BLOOD COUNT 7.6 x10^3/uL (4.0-11.0)
--- NOTE | 2018-01-10 13:27 | RAD ---
Portable chest, 01/10/2018: HISTORY: Cough, shortness of breath Comparison is made to a study from 01/03/2018. A left-sided transvenous pacemaker remains in place with 3 leads extending into the right heart. The heart size and pulmonary vascularity are normal. No pulmonary infiltrate is seen. There is no evidence of pleural fluid. IMPRESSION: No acute cardiopulmonary abnormality is detected. Electronically signed by: Santy Pan MD (01/10/2018 1:24 PM) [facility]
[2018-01-10 13:35] LABS: ALBUMIN 3.1 g/dL (3.4-5.0); CALCIUM 8.5 mg/dL (8.5-10.1); GFR 28.5; POTASSIUM 4.7 mmol/L (3.5-5.1); TOTAL BILIRUBIN 0.2 mg/dL (0.2-1.0); TOTAL PROTEIN 6.2 g/dL (6.4-8.2)
--- NOTE | 2018-01-10 13:50 | PHYS DOC ---
Past History Past Medical History: A-Fib, CHF, Diabetes, Heart Disease, Hip Fracture, Hypertension, Pneumonia Past Surgical History: Appendectomy, Cholecystectomy, Hip Replacement, Knee Replacement, Pacemaker Alcohol Use: None Drug Use: None Adult General Chief Complaint Chief Complaint: DIZZY/LIGHT HEADED [facility] HPI 87-year-old female presents today with multiple complaints. Patient has a history of multiple medical problems as well as multiple hospitalizations. Today she states that she has some hoarseness she feels like she is lost her voice over the last 12-24 hours. She feels weak. She feels also a little bit dizzy. She denies any chest pain. She denies any significant shortness of breath or any more orthopnea than her usual. She denies any fever chills or sweats. She denies any abdominal pain. She does state that she has belched a few times today though.[] Review of Systems Review of Systems Constitutional: Denies fever or chills [] Eyes: Denies change in visual acuity, redness, or eye pain [] HENT: Denies nasal congestion or sore throat, she does report laryngitis [] Respiratory: Per history of present illness[] Cardiovascular: No additional information not addressed in HPI [] GI: Denies abdominal pain, nausea, vomiting, bloody stools or diarrhea [] : Denies dysuria or hematuria [] Musculoskeletal: Denies back pain or joint pain [] Integument: Denies rash or skin lesions [] Neurologic: Denies headache, focal weakness or sensory changes [] Endocrine: Denies polyuria or polydipsia [] All other systems were reviewed and found to be within normal limits, except as documented in this note. Allergies Allergies Allergies Coded Allergies Type Severity Reaction Last Updated Verified Influenza Virus Vaccines Allergy Intermediate GENERALIZED BODY/JOINT ACHES 12/09 Yes Penicillins Allergy Intermediate NAUSEA/VOMITING 10/20/17 Yes amoxicillin Allergy Intermediate Nausea/Vomiting 10/20/17 Yes cephalexin Allergy Intermediate Nausea/Vomiting 10/20/17 Yes clavulanic acid Allergy Intermediate Nausea/Vomiting 10/20/17 Yes metoclopramide Allergy Intermediate NAUSEA/VOMITING 10/20/17 Yes Physical Exam Physical Exam Constitutional: Well developed, well nourished, no acute distress, non-toxic appearance. [] HENT: Normocephalic, atraumatic, bilateral external ears normal, oropharynx moist, no oral exudates, nose normal, her voice is hoarse. [] Eyes: PERRLA, EOMI, conjunctiva normal, no discharge. [] Neck: Normal range of motion, no tenderness, supple, no stridor. [] Cardiovascular:Heart rate regular rhythm, no murmur [] Lungs & Thorax: Bilateral breath sounds clear to auscultation [] Abdomen: Bowel sounds normal, soft, no tenderness, no masses, no pulsatile masses. [] Skin: Warm, dry, no erythema, no rash. [] Back: No tenderness, no CVA tenderness. [] Extremities: No tenderness, no cyanosis, no clubbing, ROM intact, no edema. [] Neurologic: Alert and oriented X 3, normal motor function, normal sensory function, no focal deficits noted. [] Psychologic: Depressed affect. [] Current Patient Data Vital Signs Vital Signs Date Time Temp Pulse Resp B/P (MAP) Pulse Ox O2 Delivery O2 Flow Rate FiO2 01/10/18 12:32 71 20 100 Room Air Lab Results Laboratory Tests Test 01/10/18 12:34 01/10/18 13:03 White Blood Count 7.6 x10^3/uL (4.0-11.0) Red Blood Count 3.33 x10^6/uL (3.50-5.40) L Hemoglobin 9.4 g/dL (12.0-15.5) L Hematocrit 28.9 % (36.0-47.0) L Mean Corpuscular Volume 87 fL (79-100) Mean Corpuscular Hemoglobin 28 pg (25-35) Mean Corpuscular Hemoglobin Concent 33 g/dL (31-37) Red Cell Distribution Width 15.6 % (11.5-14.5) H Platelet Count 267 x10^3/uL (140-400) # Neutrophils (%) (Auto) 66 % (31-73) Lymphocytes (%) (Auto) 23 % (24-48) L Monocytes (%) (Auto) 7 % (0-9) Eosinophils (%) (Auto) 4 % (0-3) H Basophils (%) (Auto) 1 % (0-3) Neutrophils # (Auto) 5.0 x10^3uL (1.8-7.7) Lymphocytes # (Auto) 1.7 x10^3/uL (1.0-4.8) Monocytes # (Auto) 0.5 x10^3/uL (0.0-1.1) Eosinophils # (Auto) 0.3 x10^3/uL (0.0-0.7) Basophils # (Auto) 0.1 x10^3/uL (0.0-0.2) Sodium Level 140 mmol/L (136-145) Potassium Level 4.7 mmol/L (3.5-5.1) Chloride Level 104 mmol/L (98-107) Carbon Dioxide Level 32 mmol/L (21-32) Anion Gap 4 (6-14) L Blood Urea Nitrogen 27 mg/dL (7-20) H Creatinine 2.0 mg/dL (0.6-1.0) H Estimated GFR (Cockcroft-Gault) 28.5 BUN/Creatinine Ratio 14 (6-20) Glucose Level 129 mg/dL (70-99) H Calcium Level 8.5 mg/dL (8.5-10.1) Total Bilirubin 0.2 mg/dL (0.2-1.0) Aspartate Amino Transferase (AST) 23 U/L (15-37) Alanine Aminotransferase (ALT) 24 U/L (14-59) Alkaline Phosphatase 55 U/L (46-116) Troponin I Quantitative < 0.017 ng/mL (0-0.055) DP-Yrf-K-Type Natriuretic Peptide 1652 pg/mL (0-449) H Total Protein 6.2 g/dL (6.4-8.2) L Albumin 3.1 g/dL (3.4-5.0) L Albumin/Globulin Ratio 1.0 (1.0-1.7) EKG EKG [EKG: Normal sinus rhythm rate of 70 intraventricular block no obvious ischemia and no change from previous] Radiology/Procedures Radiology/Procedures [] PATIENT: CARINA TREADWELL ACCOUNT: [id number] : 1930 LOCATION: ER AGE: 87 SEX: F EXAM STATUS: REG ER ORD. PHYSICIAN: GERMAN FRY DO REASON: cough PROCEDURE: CHEST AP ONLY Portable chest, 01/10/2018: HISTORY: Cough, shortness of breath Comparison is made to a study from 01/03/2018. A left-sided transvenous pacemaker remains in place with 3 leads extending into the right heart. The heart size and pulmonary vascularity are normal. No pulmonary infiltrate is seen. There is no evidence of pleural fluid. IMPRESSION: No acute cardiopulmonary abnormality is detected. Course & Med Decision Making Course & Med Decision Making Pertinent Labs and Imaging studies reviewed. (See chart for details) [ED course: Evaluation reveals an 87-year-old female who doesn't appear particularly ill today. She does have a hoarse voice. Her physical exam was essentially unremarkable. Her laboratory studies have actually improved with respect to her creatinine as well as her BNP. I feel the patient is stable for discharge home at this time.] Dragon Disclaimer Dragon Disclaimer This electronic medical record was generated, in whole or in part, using a voice recognition dictation system. Departure Departure: Impression: Primary Impression: Laryngitis Disposition: 01 HOME, SELF-CARE Condition: STABLE Referrals: PATRICIA COOPER MD (PCP) Patient Instructions: Laryngitis Additional Instructions: Follow with her primary care physician this week for recheck. Return to emergency department with any new or concerning symptoms GERMAN FRY DO Jan 10, 2018 13:50
--- NOTE | 2018-01-10 16:54 | EKG ---
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
== END 2018-01-10 16:00 | disposition home or self-care (01) ==
LOC: ER 12:24
DX: J04.0 Acute laryngitis (principal); I11.0 Hypertensive heart disease with heart failure; I50.9 Heart failure, unspecified; E11.9 Type 2 diabetes mellitus without complications; I48.91 Unspecified atrial fibrillation; Z95.0 Presence of cardiac pacemaker; Z88.1 Allergy status to other antibiotic agents; Z88.0 Allergy status to penicillin; Z88.7 Allergy status to serum and vaccine; Z88.8 Allergy status to other drugs, medicaments and biological substances
CPT/HCPCS: 36415; 71045; 80053; 83880; 84484; 85025; 93005; 99285

== ENCOUNTER 2018-03-05 11:57 | Inpatient (IN) | payer MEDICARE, OTHER ==
[~2018-03-05] VITALS: Ht 163.8 cm; Wt 83.5 kg
[~2018-03-05 11:57] MED LIST changes: -IPRA3AMP NEB; +IPRA3AMP29 NEB; +TRAZ-85 PO; +TRAZ-86 PO; -TRAZ-90 PO; -TRAZ50TA15 PO
--- NOTE | 2018-03-05 12:24 | EKG ---
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
[2018-03-05 12:26] LABS: BASO # 0.1 x10^3/uL (0.0-0.2); BASO % 1 % (0-3); EOS # 0.2 x10^3/uL (0.0-0.7); EOS % 3 % (0-3); HEMATOCRIT 33.6 % (36.0-47.0); HEMOGLOBIN 10.9 g/dL (12.0-15.5); LYMPH # 1.6 x10^3/uL (1.0-4.8); LYMPH % 23 % (24-48); MEAN CORPUSCULAR HEMOGLOBIN 28 pg (25-35); MEAN CORPUSCULAR HGB CONC 32 g/dL (31-37); MEAN CORPUSCULAR VOLUME 88 fL (79-100); MONO # 0.4 x10^3/uL (0.0-1.1); MONO % 6 % (0-9); NEUT # 4.8 x10^3uL (1.8-7.7); NEUT % 67 % (31-73); PLATELET COUNT 228 x10^3/uL (140-400); RED BLOOD COUNT 3.83 x10^6/uL (3.50-5.40); WHITE BLOOD COUNT 7.2 x10^3/uL (4.0-11.0)
--- NOTE | 2018-03-05 12:36 | ED.ADGEN ---
Past History Past Medical History: A-Fib, CHF, Diabetes, Heart Disease, Hip Fracture, Hypertension, Pneumonia, UTI Past Surgical History: Appendectomy, Cholecystectomy, Hip Replacement, Knee Replacement, Pacemaker Alcohol Use: None Drug Use: None Adult General HPI HPI Patient is a 87 year old female who presents with multiple complaints. Patient states she has not been feeling well in recent days. She awoke this morning and had some episode when she states she was unable to move her left arm. She had some associated dizziness. Sx improved after she drank some orange juice. She also c/o some weight gain and ongoing dyspnea that is worse with exertion. She has known hx of CHF and does endorse compliance with medications at home. Denies chest pain or worsening oxygen requirements. Review of Systems Review of Systems Constitutional: Denies fever or chills Eyes: Denies change in visual acuity HENT: Denies nasal congestion or sore throat Respiratory: Denies cough or shortness of breath Cardiovascular: No additional information GI: Denies abdominal pain, nausea Musculoskeletal: Denies back pain Integument: Denies rash or skin lesions Neurologic: Denies headache All other systems were reviewed and found to be within normal limits, except as documented in this note. Current Medications Current Medications Current Medications Medications (Trade) Dose Ordered Sig/Ruel Start Time Stop Time Status Last Admin Dose Admin Acetaminophen (Tylenol) 650 mg PRN Q4HRS PRN 03/05/18 14:10 03/06/18 14:09 Ondansetron HCl (Zofran) 4 mg PRN Q4HRS PRN 03/05/18 14:10 03/06/18 14:09 Allergies Allergies Allergies Coded Allergies Type Severity Reaction Last Updated Verified Influenza Virus Vaccines Allergy Intermediate GENERALIZED BODY/JOINT ACHES 12/09 Yes Penicillins Allergy Intermediate NAUSEA/VOMITING 10/20/17 Yes amoxicillin Allergy Intermediate Nausea/Vomiting 10/20/17 Yes cephalexin Allergy Intermediate Nausea/Vomiting 10/20/17 Yes clavulanic acid Allergy Intermediate Nausea/Vomiting 10/20/17 Yes metoclopramide Allergy Intermediate NAUSEA/VOMITING 10/20/17 Yes Physical Exam Physical Exam Constitutional: Well developed, well nourished, no acute distress, non-toxic appearance HENT: Normocephalic, atraumatic, bilateral external ears normal, oropharynx moist Eyes: PERRLA, EOMI, conjunctiva normal Neck: Normal range of motion, no tenderness Cardiovascular:Heart rate regular rhythm, no murmur Lungs & Thorax: Bilateral breath sounds clear to auscultation Abdomen: Bowel sounds normal, soft, no tenderness Skin: Warm, dry, no erythema Back: No tenderness, no CVA tenderness Extremities: No tenderness, no cyanosis, no clubbing, ROM intact, trace edema bilateral LE's Neurologic: Alert and oriented X 3 Psychologic: Affect normal Current Patient Data Vital Signs Vital Signs Date Time Temp Pulse Resp B/P (MAP) Pulse Ox O2 Delivery O2 Flow Rate FiO2 03/05/18 12:12 98.1 72 20 99 Room Air Lab Results Laboratory Tests Test 03/05/18 12:06 White Blood Count 7.2 x10^3/uL (4.0-11.0) Red Blood Count 3.83 x10^6/uL (3.50-5.40) Hemoglobin 10.9 g/dL (12.0-15.5) L Hematocrit 33.6 % (36.0-47.0) L Mean Corpuscular Volume 88 fL (79-100) Mean Corpuscular Hemoglobin 28 pg (25-35) Mean Corpuscular Hemoglobin Concent 32 g/dL (31-37) Red Cell Distribution Width 17.0 % (11.5-14.5) H Platelet Count 228 x10^3/uL (140-400) Neutrophils (%) (Auto) 67 % (31-73) Lymphocytes (%) (Auto) 23 % (24-48) L Monocytes (%) (Auto) 6 % (0-9) Eosinophils (%) (Auto) 3 % (0-3) Basophils (%) (Auto) 1 % (0-3) Neutrophils # (Auto) 4.8 x10^3uL (1.8-7.7) Lymphocytes # (Auto) 1.6 x10^3/uL (1.0-4.8) Monocytes # (Auto) 0.4 x10^3/uL (0.0-1.1) Eosinophils # (Auto) 0.2 x10^3/uL (0.0-0.7) Basophils # (Auto) 0.1 x10^3/uL (0.0-0.2) Sodium Level 138 mmol/L (136-145) Potassium Level 4.4 mmol/L (3.5-5.1) Chloride Level 99 mmol/L (98-107) Carbon Dioxide Level 31 mmol/L (21-32) Anion Gap 8 (6-14) Blood Urea Nitrogen 32 mg/dL (7-20) H Creatinine 2.6 mg/dL (0.6-1.0) H Estimated GFR (Cockcroft-Gault) 21.1 Glucose Level 184 mg/dL (70-99) H Calcium Level 9.9 mg/dL (8.5-10.1) Troponin I Quantitative < 0.017 ng/mL (0-0.055) IT-Ald-G-Type Natriuretic Peptide 1227 pg/mL (0-449) H EKG EKG Paced rhythm Radiology/Procedures Radiology/Procedures CXR: no acute findings CT head: no acute findings Course & Med Decision Making Course & Med Decision Making Pertinent Labs and Imaging studies reviewed. (See chart for details) Patient is seen on arrival. Normal neuro exam. Patient states she has known carotid artery stenosis which she attributes many of her symptoms to. + weight gain but LE edema is reported to be improved compared to baseline. 13:35: All results are reviewed. No acute findings. Her BNP is mildly elevated but not significantly compared to baseline. Her creatinine is 2.6 which is the highest reading on file. She had been as high as 2.5 earlier. Chest x-ray did not reveal acute pulmonary edema. Nonetheless, the patient had some symptoms this morning of loss of motor function in the left arm. Review of her record did reveal bilateral carotid stenosis but not more than 50%. Plan will be to admit the patient to the hospital. I spoke with Dr. Lynn who is familiar with this patient and will primarily admit. All results were reviewed with the family and the patient and all their questions answered prior to admission Final Impression Final Impression Acute on chronic renal insufficiency CHF Dragon Disclaimer Dragon Disclaimer This electronic medical record was generated, in whole or in part, using a voice recognition dictation system. RAMON TAY DO Mar 05, 2018 12:36
--- NOTE | 2018-03-05 12:38 | RAD ---
EXAM: CHEST 1 VIEW History: Shortness of breath COMPARISON: 01/10/2018 TECHNIQUE: Single portable radiograph of the chest FINDINGS: The cardiac silhouette is unremarkable. The lungs are clear bilaterally. Left-sided cardiac pacer unchanged. IMPRESSION: No radiographic evidence of an acute cardiopulmonary process. Electronically signed by: Gerardo Arguello MD (03/05/2018 12:34 PM) [id number]
[2018-03-05 12:48] LABS: CALCIUM 9.9 mg/dL (8.5-10.1); CREATININE 2.6 mg/dL (0.6-1.0); GFR 21.1; POTASSIUM 4.4 mmol/L (3.5-5.1)
--- NOTE | 2018-03-05 13:52 | RAD ---
CT HEAD INDICATION: DIZZINESS, INTERMITTENT MOTOR LOSS OF LEFT ARM COMPARISON: 07/15/2017 TECHNIQUE: 5 mm contiguous axial images were obtained from the skull base to the vertex in both bone and soft tissue algorithm. Exposure: One or more of the following individualized dose reduction techniques were utilized for this examination: 1. Automated exposure control 2. Adjustment of the mA and/or kV according to patient size 3. Use of iterative reconstruction technique FINDINGS: Mild bilateral periventricular white matter hypodensities likely small vessel ischemic disease. No evidence of acute intracranial hemorrhage. No extra-axial fluid collections. No mass effect or midline shift. Ventricular size is appropriate. Basal cisterns are patent. No fractures identified.Wright-white differentiation is preserved.Globes and orbits are within normal limits. Paranasal sinuses and mastoid air cells are clear. IMPRESSION: No acute intracranial findings. Electronically signed by: Gerardo Arguello MD (03/05/2018 1:49 PM) [id number]
[2018-03-05] MEDS ORDERED: ONDANSETRON PF 4 MG/2 ML VIAL. IV PRN (14:10)
[2018-03-05] MEDS ORDERED: ACETAMINOPHEN 325 MG TABLET PO PRN ×2 (14:10→16:45)
[2018-03-05 15:13] VITALS: BP 122/69
[2018-03-05] MEDS ORDERED: FURO80TA3 PO (15:22)
[2018-03-05] MEDS ORDERED: ALBU0.63 NEB (15:25)
[2018-03-05] MEDS ORDERED: AMLO5TAB2 PO (15:25)
[2018-03-05] MEDS ORDERED: CIPR250T PO (15:25)
[2018-03-05] MEDS ORDERED: ASPI-630 PO (15:25)
[2018-03-05] MEDS ORDERED: ISOS30TA4 PO (15:25)
[2018-03-05] MEDS ORDERED: ROPI0.5T PO (15:34)
[2018-03-05] MEDS ORDERED: PANT40TA3 PO (15:34)
[2018-03-05] MEDS ORDERED: TRAZ-85 PO (15:34)
[2018-03-05] MEDS ORDERED: GLIM4TAB2 PO (15:36)
[2018-03-05] MEDS ORDERED: NON FORMULARY ITEM (Albuterol Sulfate (Albuterol Sulfate Neb Soln) 1 VIAL) NEB PRN (16:45)
[2018-03-05] MEDS ORDERED: ALPRAZolam 0.5 MG TABLET PO PRN (16:45)
[2018-03-05] MEDS ORDERED: DEXTROSE 50% 25 GM / 50ML DISP.SYRIN. IV PRN (16:45)
[2018-03-05] MEDS ORDERED: NITROGLYCERIN SUBLINGUAL 0.4 MG BOTTLE OF 25. SL PRN (16:45)
[2018-03-05] MEDS: INSULIN LISPRO 300 UNITS/3 ML INSULN.PEN. SQ SCH (17:00)
[2018-03-05] MEDS ORDERED: ERGO500027 PO (17:12)
[2018-03-05] MEDS ORDERED: ALBUTEROL SULFATE 2.5 MG/3 ML NEBU. NEB PRN (17:15)
[2018-03-05 17:38] VITALS: BP 92/56
[2018-03-05 17:39] VITALS: BP 111/65
[2018-03-05 17:40] VITALS: BP 124/71
[2018-03-05 19:35] VITALS: BP 108/63
[2018-03-05] MEDS: CIPROFLOXACIN HCL 250 MG TABLET PO SCH (20:06)
[2018-03-05] MEDS: rOPINIRole 0.5 MG TABLET. PO SCH (20:06)
[2018-03-05] MEDS: traZODone 50 MG TABLET. PO SCH (20:06)
[2018-03-05] MEDS: ISOSORBIDE MONONITRATE ER 30 MG TAB.ER.24H PO SCH (20:07)
[2018-03-05 22:37] VITALS: BP 113/65
[2018-03-06 05:50] VITALS: BP 104/68
[2018-03-06 06:07] LABS: BASO # 0.1 x10^3/uL (0.0-0.2); BASO % 1 % (0-3); EOS # 0.2 x10^3/uL (0.0-0.7); EOS % 4 % (0-3); HEMATOCRIT 26.8 % (36.0-47.0); LYMPH # 1.8 x10^3/uL (1.0-4.8); LYMPH % 35 % (24-48); MEAN CORPUSCULAR HEMOGLOBIN 29 pg (25-35); MEAN CORPUSCULAR HGB CONC 34 g/dL (31-37); MEAN CORPUSCULAR VOLUME 87 fL (79-100); MONO # 0.4 x10^3/uL (0.0-1.1); MONO % 8 % (0-9); NEUT # 2.8 x10^3uL (1.8-7.7); NEUT % 53 % (31-73); PLATELET COUNT 170 x10^3/uL (140-400); RED BLOOD COUNT 3.07 x10^6/uL (3.50-5.40); RED CELL DISTRIBUTION WIDTH 16.6 % (11.5-14.5); WHITE BLOOD COUNT 5.2 x10^3/uL (4.0-11.0)
[2018-03-06 06:21] LABS: ALBUMIN/GLOBULIN RATIO 0.9 (1.0-1.7); CALCIUM 8.8 mg/dL (8.5-10.1); CREATININE 2.6 mg/dL (0.6-1.0); GFR 21.1; MAGNESIUM 2.6 mg/dL (1.8-2.4); POTASSIUM 4.4 mmol/L (3.5-5.1); TOTAL BILIRUBIN 0.2 mg/dL (0.2-1.0); TOTAL PROTEIN 6.4 g/dL (6.4-8.2)
[2018-03-06] MEDS: INSULIN LISPRO 300 UNITS/3 ML INSULN.PEN. SQ SCH ×3 (08:00→16:56)
[2018-03-06] MEDS: LACTOBACILLUS RHAMNOSUS GG 1 CAPSULE. PO SCH ×2 (09:00→20:43)
[2018-03-06] MEDS: MAGNESIUM OXIDE 400 MG TABLET PO SCH (09:01)
[2018-03-06] MEDS: CIPROFLOXACIN HCL 250 MG TABLET PO SCH ×2 (09:01→20:41)
[2018-03-06] MEDS: GLIMEPIRIDE 2 MG TABLET PO SCH (09:01)
[2018-03-06] MEDS: PANTOPRAZOLE 40 MG TABLET. PO SCH (09:01)
[2018-03-06] MEDS: ASPIRIN 81 MG TAB.CHEW PO SCH (09:02)
[2018-03-06] MEDS: ISOSORBIDE MONONITRATE ER 30 MG TAB.ER.24H PO SCH ×2 (09:02→20:43)
[2018-03-06 10:55] VITALS: BP 121/68
--- NOTE | 2018-03-06 11:25 | HP ---
ADMIT DATE: 03/05/2018 HISTORY OF PRESENT ILLNESS: The patient is an 87-year-old -[place] female patient who came to the Emergency Room complaining of not feeling well. She woke up yesterday morning, had some episodes when she stated that she was unable to move her left arm, had some associated dizziness. Symptoms improved after she drank some orange juice. She also complained of some weight gain and ongoing dyspnea that is worse with exertion. She is known to have congestive heart failure and does endorse compliance of medication at home. Denied any chest pain or worsening oxygen requirement. She also complained of headache and apparently Dr. Medel recommended doing a temporal artery biopsy that she declined, most likely he was considering giant cell arteritis or polymyalgia rheumatica. She was extensively evaluated in the Emergency Room and was found to have slightly elevated creatinine at 2.6. Her BNP was 1227 and a decision was made to admit her for further observation. Given her normal baseline creatinine is around 1.9-2, I held her Lasix and ordered to check her orthostatics and monitor her closely. PAST MEDICAL HISTORY: Significant for coronary artery disease with recent unstable angina, essential hypertension, hypercholesterolemia, paroxysmal atrial fibrillation, chronic diastolic congestive heart failure, pulmonary hypertension. She also has chronic anemia, generalized osteoarthritis, previous history of deep vein thrombosis, type 2 diabetes mellitus, gastroesophageal reflux disease, peripheral arterial disease, history of stroke with no residual deficit and sick sinus syndrome. PAST SURGICAL HISTORY: Significant for permanent pacemaker placement as well as bilateral knee arthroplasty. FAMILY HISTORY: Unremarkable. SOCIAL HISTORY: She lives at home with her son. She does not smoke, drink alcohol or use recreational drugs. REVIEW OF SYSTEMS: As per history of present illness. ALLERGIES: SHE IS ALLERGIC TO PENICILLIN, AMOXICILLIN, CEPHALEXIN, AUGMENTIN, REGLAN AND FLU VACCINE. MEDICATIONS: She is currently on following medications: She was on ciprofloxacin 250 mg twice a day for UTI that was started a few days ago by her primary care physician, albuterol sulfate 0.63 mg/3 mL by nebulizer 4 times a day, isosorbide mononitrate 30 mg daily, nitroglycerin 0.4 mg sublingually every 5 minutes x 3, amlodipine besylate 5 mg twice a day, aspirin 81 mg once a day, acetaminophen 650 mg every 4 hours, trazodone 50 mg at bedtime for insomnia, alprazolam 0.25 mg 3 times a day, Requip 0.5 mg at bedtime for restless leg syndrome, furosemide 80 mg daily, magnesium oxide 400 mg daily, Protonix 40 mg once a day, glimepiride 4 mg 1 tablet daily, ergocalciferol for vitamin D2 50,000 international units once a week. REVIEW OF SYSTEMS: As per history of present illness. PHYSICAL EXAMINATION: GENERAL: When she arrived to the Emergency Room, she looked well and was clearly in no apparent respiratory distress, slightly pale, but no jaundice or cyanosis. No lymphadenopathy, no thyromegaly. No jugular venous distension. No lower limb edema. VITAL SIGNS: Her heart rate was 72, blood pressure 122/69, temperature was 98.3, respiratory rate 20, and oxygen saturation was 98% on room air. HEAD, EYES, EARS, NOSE AND THROAT: Showed normocephalic, atraumatic. NECK: Supple. HEART: Showed normal first and second heart sounds with no gallop, rub or murmur. CHEST: Clear to auscultation. No crepitation or rhonchi. ABDOMEN: Distended, soft, nontender. No guarding or rigidity. No organomegaly. Hernial orifice intact. Bowel sounds normal. NEUROLOGIC: She is awake, alert, responding appropriately. Cranial nerves intact. EXTREMITIES: She moves extremities without difficulty. She ambulates with a walker. LABORATORY DATA: Her lab work showed a white cell count 7200, hemoglobin 11, hematocrit 33, MCV 88, and platelet count of 228,000. Serum sodium is 138, potassium 4.4, chloride 99, bicarbonate 31, anion gap of 8, BUN 32, creatinine was 2.6. Estimated GFR was 21 mL per minute. Her glucose 184, calcium was 9.9. Beta natriuretic peptide was 1227. DIAGNOSTIC DATA: Her chest x-ray showed that the cardiac silhouette is unremarkable. The lungs are clear bilaterally, left-sided cardiac pacemaker is unchanged. CT scan of the head showed she has mild bilateral periventricular white matter hypodensities likely small vessel ischemic disease, no evidence of acute intracranial hemorrhage, no extraaxial fluid collection, no mass effect or midline shift. Ventricular size is appropriate. Basilar cisterns are patent. No fracture identified. The mora white matter differentiation is preserved. Globes and orbits are within normal limits. The paranasal sinuses and mastoid air cells are clear with no acute intracranial finding. IMPRESSION AND PLAN: In summary, this is an 87-year-old female patient that came with multiple complaints including dizziness. Her Lasix was increased recently to 80 mg and she seemed to be dehydrated. She was admitted for observation. I held her Lasix. She apparently complained of headache and tenderness in both temporal areas and Dr. Medel recommended doing temporal artery biopsy suspecting giant cell arteritis and/or polymyalgia rheumatica. I ordered sed rate and C-reactive protein and decide further management accordingly. JAMES MULTANI MD DR: ESTEPHANIA/deepak JOB#: [id number] / [id number]
--- NOTE | 2018-03-06 11:43 | PN ---
DATE: 03/06/2018 SUBJECTIVE: The patient is resting flat in bed and in no apparent distress. On questioning her, she continued to complain of being weak, has headache, tingling and numbness in her right hand and generally tired and sleepy. 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 Medel apparently recommended doing a temporal artery biopsy, but she declined and therefore, I did order a sedimentation rate and C-reactive protein to see whether she has polymyalgia rheumatica/transient arthritis. OBJECTIVE: GENERAL: When I examined her this morning, she was slightly pale, but no jaundice, cyanosis, lymphadenopathy or thyromegaly. No jugular venous distension. No limb edema. VITAL SIGNS: Her heart rate was 71, blood pressure was 108/63, temperature was 97.2, respiratory rate was 18 and oxygen saturation was 95% on room air. HEAD, EYES, EARS, NOSE AND THROAT: Showed normocephalic, atraumatic. NECK: Supple. HEART: Showed normal first and second heart sounds with no gallop, rub or murmur. CHEST: Clear to auscultation. No crepitation or rhonchi. ABDOMEN: Slightly distended, soft, nontender. NEUROLOGIC: She was sleepy, but arousable. All cranial nerves intact. She moves upper extremities without difficulty, although she is mostly bed bound. Apparently, she has had her orthostatics checked yesterday and there was no evidence of significant postural hypertension. Her intake over the last 24 hours was 600, output was 950. LABORATORY DATA: Her lab work this morning showed that her serum sodium was 142, potassium 4.4, chloride 103, bicarbonate 30, anion gap of 9, BUN 34, creatinine 2.6, estimated GFR was 21 mL per minute. Her glucose was 151, calcium was 8.8, magnesium 2.6. Total bilirubin, AST, ALT, alkaline phosphatase were normal. Her total protein was 6.4, albumin 3. Her white cell count was 5200, hemoglobin 9, hematocrit 27, MCV was 87 and platelet count 170,000. IMPRESSION: In summary, this is an 87-year-old -[place] female patient who came complaining of multiple complaints including dizziness, acute on chronic renal insufficiency, chronic diastolic congestive heart failure. PLAN: I will continue to hold her Lasix. I have ordered a sed rate and C-reactive protein and we will monitor her lab work closely and decide on further management accordingly. JAMES MULTANI MD DR: ESTEPHANIA/deepak JOB#: [id number] / [id number]
[2018-03-06 15:07] VITALS: BP 116/67
[2018-03-06 19:20] VITALS: BP 117/60
[2018-03-06] MEDS: traZODone 50 MG TABLET. PO SCH (20:43)
[2018-03-06] MEDS: rOPINIRole 0.5 MG TABLET. PO SCH (20:43)
[2018-03-06 23:11] VITALS: BP 123/67
[2018-03-07 05:47] VITALS: BP 124/59
[2018-03-07 07:20] LABS: HEMATOCRIT 27.1 % (36.0-47.0); HEMOGLOBIN 8.7 g/dL (12.0-15.5); RED BLOOD COUNT 3.06 x10^6/uL (3.50-5.40); RED CELL DISTRIBUTION WIDTH 16.2 % (11.5-14.5); WHITE BLOOD COUNT 5.2 x10^3/uL (4.0-11.0)
[2018-03-07 07:32] LABS: CALCIUM 8.8 mg/dL (8.5-10.1); CREATININE 2.5 mg/dL (0.6-1.0); POTASSIUM 4.2 mmol/L (3.5-5.1)
[2018-03-07] MEDS: INSULIN LISPRO 300 UNITS/3 ML INSULN.PEN. SQ SCH ×4 (07:57→20:46)
[2018-03-07] MEDS: PANTOPRAZOLE 40 MG TABLET. PO SCH (08:01)
[2018-03-07] MEDS: ISOSORBIDE MONONITRATE ER 30 MG TAB.ER.24H PO SCH ×2 (08:01→20:10)
[2018-03-07] MEDS: LACTOBACILLUS RHAMNOSUS GG 1 CAPSULE. PO SCH ×2 (08:01→20:09)
[2018-03-07] MEDS: MAGNESIUM OXIDE 400 MG TABLET PO SCH (08:01)
[2018-03-07] MEDS: GLIMEPIRIDE 2 MG TABLET PO SCH (08:02)
[2018-03-07] MEDS: CIPROFLOXACIN HCL 250 MG TABLET PO SCH ×2 (08:02→20:09)
[2018-03-07] MEDS: ASPIRIN 81 MG TAB.CHEW PO SCH (08:02)
[2018-03-07 10:20] VITALS: BP 122/67
[2018-03-07] MEDS ORDERED: methylPREDNISolone SOD SUCC PF 40 MG/ML VIAL. IV ONE (12:00)
[2018-03-07] MEDS: SULFACETAMIDE 10% OPHTH SOLUTION 15ML BOTTLE. OU SCH ×3 (12:08→20:15)
[2018-03-07 15:20] VITALS: BP 137/70
[2018-03-07 19:10] VITALS: BP 134/69
[2018-03-07] MEDS: traZODone 50 MG TABLET. PO SCH (20:09)
[2018-03-07] MEDS: rOPINIRole 0.5 MG TABLET. PO SCH (20:10)
[2018-03-07] MEDS: ERYTHROMYCIN 0.5% OPHTH OINTMENT 1GM TUBE. OU SCH (20:11)
[2018-03-07] MEDS ORDERED: INSULIN LISPRO 300 UNITS/3 ML INSULN.PEN. SQ ONE (20:30)
--- NOTE | 2018-03-07 20:45 | PN ---
DATE: 03/07/2018 SUBJECTIVE: The patient is still resting, slightly propped up in bed, continues to complain of being tired, fatigued, complaining of headache. OBJECTIVE: GENERAL: When I examined her, she looked well and was clearly in no apparent respiratory distress, pale, but no jaundice, cyanosis, or thyromegaly. No jugular venous distention. No limb edema. VITAL SIGNS: Her heart rate was 66, blood pressure 122/67, temperature was 98.1, respiratory rate 20, and oxygen saturation was 97%. HEAD, EYES, EARS, NOSE AND THROAT: Showed normocephalic, atraumatic. NECK: Supple. HEART: Showed normal first and second heart sounds with no gallop, rub or murmur. CHEST: Clear to auscultation. No crepitation or rhonchi. ABDOMEN: Distended, soft, nontender. No guarding or rigidity. No organomegaly. Hernial orifice intact. Bowel sounds normal. NEUROLOGIC: She is awake, alert, continued to complain of tenderness in both temporal area; however, she has no obvious neurological deficit. All cranial nerves are intact. She moves extremities without difficulty. She does have injection to both eyes with some matting of the eyelashes. ASSESSMENT AND PLAN: My plan is to given that her sedimentation rate was high at 54 and that she has tenderness in both temporal arteries and is having headache, the giant cell arteritis is a possibility and my plan is to start her on steroids and monitor her response. Continue to hold the diuretics for now and monitor her lab work closely. Acute on chronic renal insufficiency, slightly improving. Chronic diastolic congestive heart failure, stable. Headache with elevated sed rate. Tenderness in both temporal arteries raising the possibility of giant cell arteritis/polymyalgia rheumatica for which I will start her on steroids and see how she respond to that. JAMES MULTANI MD DR: ESTEPHANIA/deepak JOB#: [id number] / [id number]
[2018-03-07 22:30] VITALS: BP 138/95
[2018-03-08] MEDS: SULFACETAMIDE 10% OPHTH SOLUTION 15ML BOTTLE. OU SCH ×6 (03:55→21:00)
[2018-03-08 08:32] VITALS: BP 129/79
[2018-03-08 08:34] VITALS: BP 138/64
[2018-03-08 08:36] VITALS: BP 123/68
[2018-03-08] MEDS: GLIMEPIRIDE 2 MG TABLET PO SCH (09:27)
[2018-03-08] MEDS: CIPROFLOXACIN HCL 250 MG TABLET PO SCH ×2 (09:27→20:59)
[2018-03-08] MEDS: PANTOPRAZOLE 40 MG TABLET. PO SCH (09:27)
[2018-03-08] MEDS: ISOSORBIDE MONONITRATE ER 30 MG TAB.ER.24H PO SCH ×2 (09:27→20:59)
[2018-03-08] MEDS: LACTOBACILLUS RHAMNOSUS GG 1 CAPSULE. PO SCH ×2 (09:27→20:59)
[2018-03-08] MEDS: ASPIRIN 81 MG TAB.CHEW PO SCH (09:27)
[2018-03-08] MEDS: MAGNESIUM OXIDE 400 MG TABLET PO SCH (09:27)
[2018-03-08] MEDS: INSULIN LISPRO 300 UNITS/3 ML INSULN.PEN. SQ SCH ×4 (09:36→21:01)
[2018-03-08 12:51] VITALS: BP 129/68
[2018-03-08 14:58] VITALS: BP 124/58
[2018-03-08 19:25] VITALS: BP 128/70
[2018-03-08] MEDS: rOPINIRole 0.5 MG TABLET. PO SCH (20:59)
[2018-03-08] MEDS: traZODone 50 MG TABLET. PO SCH (20:59)
[2018-03-08] MEDS: ERYTHROMYCIN 0.5% OPHTH OINTMENT 1GM TUBE. OU SCH (21:00)
--- NOTE | 2018-03-08 21:08 | PN ---
DATE: 03/08/2018 SUBJECTIVE: The patient is sitting in her chair comfortably, in no apparent distress. She is generally feeling much better, though still have some headache and pain around her left eye. I did give her 40 mg of Solu-Medrol yesterday; however, she refused to consider temporal artery biopsy. She is not dizzy today and she has no evidence of postural hypertension. She has been up working with physical therapy. PHYSICAL EXAMINATION: GENERAL: When I examined her, she looked well and in no apparent respiratory distress. VITAL SIGNS: Her heart rate was 73, blood pressure was 129/68, temperature was 98.1, respiratory rate was 18, and oxygen saturation was 99%. HEAD, EYES, EARS, NOSE AND THROAT: Showed she is normocephalic, atraumatic. She continued to have tenderness mostly in the left temporal area and there is discharge I think both the eyelashes has largely resolved. NECK: Supple. HEART: Showed normal first and second heart sounds with no gallop, rub or murmur. CHEST: Clear to auscultation. No crepitation or rhonchi. ABDOMEN: Distended, soft, and nontender. NEUROLOGIC: She is definitely more awake, alert today, and has worked with physical therapy, with a walker. Her intake over the last 24 hours was 2500, output was 1200. LABORATORY DATA: As of yesterday showed a serum sodium 140, potassium 4.2, chloride 104, bicarbonate 30, anion gap of 6, BUN 35, creatinine 2.5. His blood sugar slightly elevated, probably secondary to steroids. ASSESSMENT: 1. Acute on chronic renal insufficiency, slightly improved. 2. Chronic diastolic congestive heart failure, stable, headache with elevated sedimentation rate, tenderness in both temporal arteries, giant cell arteritis/polymyalgia rheumatica, for which I started her on steroids. PLAN: I will repeat all her labs tomorrow and hopefully discharge her home with home health. We did discuss with her the option of hospice as she was very frustrated yesterday and she declined and did not want to consider hospice and palliative care. JAMES MULTANI MD DR: ESTEPHANIA/deepak JOB#: [id number] / [id number]
[2018-03-09] MEDS: SULFACETAMIDE 10% OPHTH SOLUTION 15ML BOTTLE. OU SCH ×4 (00:41→11:53)
[2018-03-09 05:36] VITALS: BP 122/76
[2018-03-09 06:49] LABS: CALCIUM 8.9 mg/dL (8.5-10.1); CREATININE 2.2 mg/dL (0.6-1.0); GFR 25.5; HEMATOCRIT 27.5 % (36.0-47.0); HEMOGLOBIN 8.9 g/dL (12.0-15.5); POTASSIUM 5.3 mmol/L (3.5-5.1); RED BLOOD COUNT 3.12 x10^6/uL (3.50-5.40); RED CELL DISTRIBUTION WIDTH 16.5 % (11.5-14.5); WHITE BLOOD COUNT 7.1 x10^3/uL (4.0-11.0)
[2018-03-09] MEDS: LACTOBACILLUS RHAMNOSUS GG 1 CAPSULE. PO SCH (08:13)
[2018-03-09] MEDS: MAGNESIUM OXIDE 400 MG TABLET PO SCH (08:13)
[2018-03-09] MEDS: ISOSORBIDE MONONITRATE ER 30 MG TAB.ER.24H PO SCH (08:13)
[2018-03-09] MEDS: ASPIRIN 81 MG TAB.CHEW PO SCH (08:13)
[2018-03-09] MEDS: PANTOPRAZOLE 40 MG TABLET. PO SCH (08:13)
[2018-03-09] MEDS: GLIMEPIRIDE 2 MG TABLET PO SCH (08:14)
[2018-03-09] MEDS: CIPROFLOXACIN HCL 250 MG TABLET PO SCH (08:14)
[2018-03-09] MEDS: INSULIN LISPRO 300 UNITS/3 ML INSULN.PEN. SQ SCH ×2 (08:58→11:52)
[2018-03-09] MEDS ORDERED: ALPRAZolam 0.25 MG TABLET PO PRN (09:00)
[2018-03-09] MEDS ORDERED: FURO40TA4 PO (11:28)
[2018-03-09] MEDS ORDERED: FUROSEMIDE 40 MG/4 ML VIAL IVP ONE (12:00)
--- NOTE | 2018-03-09 12:08 | DS ---
DATE OF DISCHARGE: 03/09/2018 HISTORY OF PRESENT ILLNESS: The patient is sitting comfortably in her chair in no apparent distress. She has been up and about, has maintained her oxygen saturation above 90% on exertion, has had no more headache, no more dizziness or lightheadedness. We held her Lasix for almost 3 days. Her kidney function has returned back to her baseline. When she came, her creatinine was 2.6, today is down to 2.2. Her BUN also was 32 and now it is 36; however, she has received steroids. I gave her 1 dose of steroids as Dr. Medel recommended doing bilateral temporal artery biopsy; however, she declined the offer. She continued to refuse to consider that and I do not have really any firm evidence that she has temporal artery giant cell arteritis. Her sedimentation rate was slightly high at 52. She has had no more tenderness and no headache and I was reluctant to start her on a huge dose of steroids given that the symptoms have subsided. In any case, the patient is doing very well. She has no more dizziness or lightheadedness. She has been up and about and a decision was made to discharge her home and to cut back on her diuretics from 80 to 40 mg of Lasix once a day. PHYSICAL EXAMINATION: GENERAL: When I examined her this afternoon, she looked well and was clearly in no apparent respiratory distress, slightly pale, but no jaundice, cyanosis, or thyromegaly. No jugular venous distension. No lower limb edema. VITAL SIGNS: Her heart rate was 64, blood pressure was 122/76, temperature was 98.1, respiratory rate was 18, and oxygen saturation was 96%. HEAD, EYES, EARS, NOSE AND THROAT: Showed normocephalic, atraumatic. NECK: Supple. HEART: Showed normal first and second heart sounds with no gallop, rub, or murmur. CHEST: Clear to auscultation. No crepitation or rhonchi. ABDOMEN: Distended, soft, nontender. NEUROLOGIC: She is awake, alert, responding appropriately. All cranial nerves intact. She moves all extremities without difficulty. She ambulates with a walker. Her intake over the last 24 hours was 800, output was 850. LABORATORY DATA: As of this morning, her serum sodium was 136, potassium 5.3, chloride 102, bicarbonate 28, anion gap of 8, BUN 36, creatinine 2.2, estimated GFR was 25 mL per minute. Her glucose was 339. Calcium was 8.9. White cell count was 7100, hemoglobin 9, hematocrit 27, MCV 88 and platelet count of 178,000. DISCHARGE MEDICATIONS: The patient was discharged home with home health to continue on furosemide 40 mg once a day, Tylenol 650 mg every 6 hours, albuterol sulfate by nebulizer 4 times a day, alprazolam 0.25 mg 3 times a day as needed. She is also on amlodipine 5 mg twice a day, aspirin 81 mg once a day, ergocalciferol 50,000 [employer] Unit once a week, glimepiride 4 mg daily, isosorbide mononitrate 30 mg twice a day, magnesium oxide 400 mg daily, nitroglycerin 0.4 mg sublingually every 5 minutes x 3, Protonix 40 mg daily, Requip 0.5 mg at bedtime, trazodone 50 mg at bedtime. FINAL DISCHARGE DIAGNOSES: 1. Acute on chronic renal insufficiency, improved. Her creatinine is down to 2.2. 2. Chronic diastolic congestive heart failure, stable. 3. Headache, resolved. She does have slightly elevated sedimentation rate; however, today headache has gone. She has no tenderness in the temporal area. If the patient continues to have headache and she is willing to have temporal artery biopsy, obviously we will admit her to [facility] and started on therapeutic dose of steroids. Meanwhile, I cut down her diuretics to 40 mg as apparently 80 mg has dehydrated her and she became dizzy and lightheaded. 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 JAMES MULTANI MD DR: ESTEPHANIA/deepak JOB#: [id number] / [id number]
[2018-03-09 12:10] VITALS: BP 136/56
[2018-03-10] MEDS ORDERED: CHOLECALCIFEROL (VITAMIN D3) 50,000 UNIT CAPSULE PO SCH (09:00)
[2018-03-12] MEDS ORDERED: NON FORMULARY ITEM (Ergocalciferol (Vitamin D2) (Vitamin D2) 1 CAP) PO SCH (09:00)
== END 2018-03-09 12:51 | disposition home health service (06) | DRG 292 ==
LOC: ER 11:57 → 1 SOUTH 14:42
PROVIDERS: ADMIT Internal Medicine; ATTEND Internal Medicine
DX: I13.0 Hypertensive heart and chronic kidney disease with heart failure and stage 1 through stage 4 chronic kidney disease, or unspecified chronic kidney disease (principal); I50.32 Chronic diastolic (congestive) heart failure; E11.22 Type 2 diabetes mellitus with diabetic chronic kidney disease; E78.00 Pure hypercholesterolemia, unspecified; I25.10 Atherosclerotic heart disease of native coronary artery without angina pectoris; E11.51 Type 2 diabetes mellitus with diabetic peripheral angiopathy without gangrene; Z96.649 Presence of unspecified artificial hip joint; Z96.653 Presence of artificial knee joint, bilateral; I48.0 Paroxysmal atrial fibrillation; E86.0 Dehydration; I27.20 Pulmonary hypertension, unspecified; M31.5 Giant cell arteritis with polymyalgia rheumatica; M15.9 Polyosteoarthritis, unspecified; K21.9 Gastro-esophageal reflux disease without esophagitis; N18.9 Chronic kidney disease, unspecified; Z86.718 Personal history of other venous thrombosis and embolism; Z87.01 Personal history of pneumonia (recurrent); Z87.440 Personal history of urinary (tract) infections; Z86.73 Personal history of transient ischemic attack (TIA), and cerebral infarction without residual deficits; Z95.0 Presence of cardiac pacemaker; Z90.49 Acquired absence of other specified parts of digestive tract; Z88.1 Allergy status to other antibiotic agents; Z88.0 Allergy status to penicillin; Z88.7 Allergy status to serum and vaccine; Z88.8 Allergy status to other drugs, medicaments and biological substances; Z79.899 Other long term (current) drug therapy
CPT/HCPCS: 36415; 70450; 71045; 80048; 80053; 82947; 83735; 83880; 84484; 85025; 85027; 85651; 86140; 93005; 96374; J1815; J1940; J2405; J2920; 97535; 99285-25

== ENCOUNTER 2018-04-23 14:19 | Inpatient (IN) | payer MEDICARE, OTHER ==
[~2018-04-23] VITALS: Ht 163.8 cm; Wt 81.8 kg
[~2018-04-23 14:19] MED LIST changes: +ALBU0.63 NEB; -AMLO10TA2 PO; +AMLO10TA6 PO; -AMLO5TAB2 PO; +AMLO5TAB7 PO; +CIPR250T PO; +ERGO500027 PO; +FURO80TA3 PO; -LOSA50TA6 PO; +LOSA50TA7 PO; +PANT40TA3 PO; +ROPI0.5T PO
[2018-04-23 15:10] LABS: BASO # 0.1 x10^3/uL (0.0-0.2); BASO % 1 % (0-3); EOS # 0.1 x10^3/uL (0.0-0.7); EOS % 2 % (0-3); HEMATOCRIT 32.8 % (36.0-47.0); HEMOGLOBIN 10.8 g/dL (12.0-15.5); LYMPH # 1.6 x10^3/uL (1.0-4.8); LYMPH % 25 % (24-48); MEAN CORPUSCULAR HEMOGLOBIN 29 pg (25-35); MEAN CORPUSCULAR HGB CONC 33 g/dL (31-37); MEAN CORPUSCULAR VOLUME 88 fL (79-100); MONO # 0.4 x10^3/uL (0.0-1.1); MONO % 6 % (0-9); NEUT # 4.2 x10^3uL (1.8-7.7); NEUT % 66 % (31-73); PLATELET COUNT 169 x10^3/uL (140-400); RED BLOOD COUNT 3.73 x10^6/uL (3.50-5.40); RED CELL DISTRIBUTION WIDTH 15.5 % (11.5-14.5); WHITE BLOOD COUNT 6.4 x10^3/uL (4.0-11.0)
--- NOTE | 2018-04-23 15:22 | RAD ---
EXAM: Head CT without contrast. HISTORY: Dizziness. TECHNIQUE: Computed tomographic images of the head were obtained without contrast. *One or more of the following individualized dose reduction techniques were utilized for this examination: 1. Automated exposure control. 2. Adjustment of the mA and/or kV according to patient size. 3. Use of iterative reconstruction technique. COMPARISON: 03/05/2018. FINDINGS: There is no acute or subacute extra-axial or intraparenchymal hemorrhage. There is no mass effect or midline shift. There is no hydrocephalus. There are areas of decreased attenuation within the cerebral white matter, nonspecific and likely related to chronic small vessel disease. There is mild cerebral volume loss. The visualized portions of the orbits, paranasal sinuses and mastoid air cells are unremarkable. No suspicious calvarial lesion is seen. IMPRESSION: 1. No acute intracranial finding. Note is made that MRI is more sensitive for acute infarction. 2. Subtle areas of hypodensity within the cerebral white matter, a nonspecific finding likely due to chronic small vessel disease. Electronically signed by: Bertha Castrejon MD (04/23/2018 3:19 PM) [place] [id number]
[2018-04-23 15:30] LABS: ALBUMIN 3.6 g/dL (3.4-5.0); ALBUMIN/GLOBULIN RATIO 0.9 (1.0-1.7); CALCIUM 9.6 mg/dL (8.5-10.1); CREATININE 2.1 mg/dL (0.6-1.0); MAGNESIUM 2.4 mg/dL (1.8-2.4); POTASSIUM 4.2 mmol/L (3.5-5.1); TOTAL BILIRUBIN 0.2 mg/dL (0.2-1.0); TOTAL PROTEIN 7.6 g/dL (6.4-8.2)
[2018-04-23 15:35] LABS: BILIRUBIN,URINE NEG (NEG); CLARITY,URINE HAZY; COLOR,URINE STRAW; GLUCOSE,URINE NEG (NEG)
[2018-04-23 15:36] LABS: AMORPHOUS SEDIMENT,UR PRESENT /HPF; BACTERIA,URINE FEW /HPF (0-FEW); NITRITE,URINE NEG (NEG); RBC,URINE 0 /HPF (0-2); SQUAMOUS EPITHELIAL CELL,UR OCC /LPF; UROBILINOGEN,URINE 0.2 mg/dL (0.2 mg/dL); WBC,URINE RARE /HPF (0-4)
--- NOTE | 2018-04-23 15:36 | EKG ---
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
--- NOTE | 2018-04-23 15:45 | RAD ---
EXAM: Chest, single view. HISTORY: Weakness and dizziness. COMPARISON: 01/10/2018 FINDINGS: A frontal view of the chest obtained. There is no infiltrate, pleural effusion or pneumothorax. The heart is normal in size. There is a cardiac pacemaker with leads in expected position. There is cervical spinal fusion instrumentation. There are prominent central pulmonary vascular shadows. IMPRESSION: No acute pulmonary finding. Electronically signed by: Bertha Castrejon MD (04/23/2018 3:42 PM) [place] [id number]
--- NOTE | 2018-04-23 16:16 | PHYS DOC ---
Past History Past Medical History: A-Fib, CAD, CHF, Diabetes, Heart Disease, Hip Fracture, Hypertension, Pneumonia, UTI Past Surgical History: Appendectomy, Cholecystectomy, Hip Replacement, Knee Replacement, Pacemaker Smoking: Non-smoker Alcohol Use: None Drug Use: None Adult General Chief Complaint Chief Complaint: DIZZY/LIGHT HEADED HPI HPI Patient is a 87 year old female who presents with complaining of dizziness. Patient complaining of constant dizziness for the last 5 days that getting worse with movement of her head and change of position. Patient complaining of mild headache and nausea without tinnitus, change of hearing, fever and chills, vomiting, diarrhea and constipation, urinary symptom. Patient complaining of chronic intermittent episodes of left lower chest pain with radiation to the back associated with shortness of breath. Patient states she has history of dizziness but this time her dizziness is different because it is constant and last for longer time. Patient states she took meclizine without improvement of her dizziness. Review of Systems Review of Systems Constitutional: Denies fever or chills [] Eyes: Denies change in visual acuity, redness, or eye pain [] HENT: Denies nasal congestion or sore throat [] Respiratory: Denies cough or shortness of breath [] Cardiovascular: No additional information not addressed in HPI [] GI: Denies abdominal pain, nausea, vomiting, bloody stools or diarrhea [] : Denies dysuria or hematuria [] Musculoskeletal: Denies back pain or joint pain [] Integument: Denies rash or skin lesions [] Neurologic: Reports dizziness and headache, denies focal weakness or sensory changes [] Endocrine: Denies polyuria or polydipsia [] All other systems were reviewed and found to be within normal limits, except as documented in this note. Allergies Allergies Allergies Coded Allergies Type Severity Reaction Last Updated Verified Influenza Virus Vaccines Allergy Intermediate GENERALIZED BODY/JOINT ACHES 12/09 Yes Penicillins Allergy Intermediate NAUSEA/VOMITING 10/20/17 Yes amoxicillin Allergy Intermediate Nausea/Vomiting 10/20/17 Yes cephalexin Allergy Intermediate Nausea/Vomiting 10/20/17 Yes clavulanic acid Allergy Intermediate Nausea/Vomiting 10/20/17 Yes metoclopramide Allergy Intermediate NAUSEA/VOMITING 10/20/17 Yes Physical Exam Physical Exam Constitutional: Well developed, well nourished, mild distress, non-toxic appearance. [] HENT: Normocephalic, atraumatic, bilateral external ears normal, oropharynx moist, no oral exudates, nose normal. [] Eyes: PERRLA, EOMI, conjunctiva normal, no discharge. [] Neck: Normal range of motion, no tenderness, supple, no stridor. [] Cardiovascular:Heart rate regular rhythm, no murmur [] Lungs & Thorax: Bilateral breath sounds clear to auscultation [] Abdomen: Bowel sounds normal, soft, no tenderness, no masses, no pulsatile masses. [] Skin: Warm, dry, no erythema, no rash. [] Back: No tenderness, no CVA tenderness. [] Extremities: No tenderness, no cyanosis, no clubbing, ROM intact, no edema. [] Neurologic: Alert and oriented X 3, normal motor function, normal sensory function, no focal deficits noted. [] Psychologic: Affect normal, judgement normal, mood normal. [] Current Patient Data Vital Signs Vital Signs Date Time Temp Pulse Resp B/P (MAP) Pulse Ox O2 Delivery O2 Flow Rate FiO2 04/23/18 14:19 98.3 74 20 98 Room Air Lab Results Laboratory Tests Test 04/23/18 14:53 04/23/18 15:08 White Blood Count 6.4 x10^3/uL (4.0-11.0) Red Blood Count 3.73 x10^6/uL (3.50-5.40) Hemoglobin 10.8 g/dL (12.0-15.5) L Hematocrit 32.8 % (36.0-47.0) L Mean Corpuscular Volume 88 fL (79-100) Mean Corpuscular Hemoglobin 29 pg (25-35) Mean Corpuscular Hemoglobin Concent 33 g/dL (31-37) Red Cell Distribution Width 15.5 % (11.5-14.5) H Platelet Count 169 x10^3/uL (140-400) Neutrophils (%) (Auto) 66 % (31-73) Lymphocytes (%) (Auto) 25 % (24-48) Monocytes (%) (Auto) 6 % (0-9) Eosinophils (%) (Auto) 2 % (0-3) Basophils (%) (Auto) 1 % (0-3) Neutrophils # (Auto) 4.2 x10^3uL (1.8-7.7) Lymphocytes # (Auto) 1.6 x10^3/uL (1.0-4.8) Monocytes # (Auto) 0.4 x10^3/uL (0.0-1.1) Eosinophils # (Auto) 0.1 x10^3/uL (0.0-0.7) Basophils # (Auto) 0.1 x10^3/uL (0.0-0.2) Prothrombin Time 9.5 SEC (9.4-11.4) Prothrombin Time INR 1.0 (0.9-1.1) Sodium Level 137 mmol/L (136-145) Potassium Level 4.2 mmol/L (3.5-5.1) Chloride Level 99 mmol/L (98-107) Carbon Dioxide Level 34 mmol/L (21-32) H Anion Gap 4 (6-14) L Blood Urea Nitrogen 33 mg/dL (7-20) H Creatinine 2.1 mg/dL (0.6-1.0) H Estimated GFR (Cockcroft-Gault) 27.0 BUN/Creatinine Ratio 16 (6-20) Glucose Level 212 mg/dL (70-99) H Calcium Level 9.6 mg/dL (8.5-10.1) Magnesium Level 2.4 mg/dL (1.8-2.4) Total Bilirubin 0.2 mg/dL (0.2-1.0) Aspartate Amino Transferase (AST) 14 U/L (15-37) L Alanine Aminotransferase (ALT) 21 U/L (14-59) Alkaline Phosphatase 49 U/L (46-116) Creatine Kinase 74 U/L (26-192) Troponin I Quantitative < 0.017 ng/mL (0-0.055) PF-Uht-B-Type Natriuretic Peptide 1046 pg/mL (0-449) H Total Protein 7.6 g/dL (6.4-8.2) Albumin 3.6 g/dL (3.4-5.0) Albumin/Globulin Ratio 0.9 (1.0-1.7) L Lipase 80 U/L (73-393) Urine Collection Type Clean catch Urine Color Straw Urine Clarity Hazy Urine pH 7.5 Urine Specific Angelica 1.015 Urine Protein Neg (NEG-TRACE) Urine Glucose (UA) Neg mg/dL (NEG) Urine Ketones (Stick) Neg mg/dL (NEG) Urine Blood Small (NEG) Urine Nitrite Neg (NEG) Urine Bilirubin Neg (NEG) Urine Urobilinogen Dipstick 0.2 mg/dL (0.2 mg/dL) Urine Leukocyte Esterase Neg (NEG) Urine RBC 0 /HPF (0-2) Urine WBC Rare /HPF (0-4) Urine Squamous Epithelial Cells Occ /LPF Urine Amorphous Sediment Present /HPF Urine Bacteria Few /HPF (0-FEW) EKG EKG EKG interpreted by me. EKG at 1434 showed normal sinus rhythm at rate of 70, left axis deviation, nonspecific intraventricular block, no acute ST and T-wave abnormalities Radiology/Procedures Radiology/[place] [address] IMAGING REPORT Signed PATIENT: CARINA TREADWELL ACCOUNT: [id number] : 1930 LOCATION: ER AGE: 87 SEX: F EXAM STATUS: REG ER ORD. PHYSICIAN: BRENDA DOMÍNGUEZ MD REASON: dizziness PROCEDURE: CT HEAD WO CONTRAST EXAM: Head CT without contrast. HISTORY: Dizziness. TECHNIQUE: Computed tomographic images of the head were obtained without contrast. *One or more of the following individualized dose reduction techniques were utilized for this examination: 1. Automated exposure control. 2. Adjustment of the mA and/or kV according to patient size. 3. Use of iterative reconstruction technique. COMPARISON: 03/05/2018. FINDINGS: There is no acute or subacute extra-axial or intraparenchymal hemorrhage. There is no mass effect or midline shift. There is no hydrocephalus. There are areas of decreased attenuation within the cerebral white matter, nonspecific and likely related to chronic small vessel disease. There is mild cerebral volume loss. The visualized portions of the orbits, paranasal sinuses and mastoid air cells are unremarkable. No suspicious calvarial lesion is seen. IMPRESSION: 1. No acute intracranial finding. Note is made that MRI is more sensitive for acute infarction. 2. Subtle areas of hypodensity within the cerebral white matter, a nonspecific finding likely due to chronic small vessel disease. Electronically signed by: Bertha Tanner MD (04/23/2018 3:19 PM) [place] [id number] DICTATED AND SIGNED BY: BERTHA TANNER MD DATE: 04/23/18 1519 CC: BRENDA DOMÍNGUEZ MD; PATRICIA COOPER MD ~ [address] [address] IMAGING REPORT Signed PATIENT: CARINA TREADWELL ACCOUNT: [id number] : 1930 LOCATION: ER AGE: 87 SEX: F EXAM STATUS: REG ER ORD. PHYSICIAN: BRENDA DOMÍNGUEZ MD REASON: dizziness PROCEDURE: PORTABLE CHEST 1V EXAM: Chest, single view. HISTORY: Weakness and dizziness. COMPARISON: 01/10/2018 FINDINGS: A frontal view of the chest obtained. There is no infiltrate, pleural effusion or pneumothorax. The heart is normal in size. There is a cardiac pacemaker with leads in expected position. There is cervical spinal fusion instrumentation. There are prominent central pulmonary vascular shadows. IMPRESSION: No acute pulmonary finding. Electronically signed by: Bertha Tanner MD (04/23/2018 3:42 PM) [place] [id number] DICTATED AND SIGNED BY: BERTHA TANNER MD DATE: 04/23/18 1007 CC: BRENDA DOMÍNGUEZ MD; PATRICIA COOPER MD ~ Course & Med Decision Making Course & Med Decision Making Pertinent Labs and Imaging studies reviewed. (See chart for details) Evaluation of patient in ER showed 87-year-old female patient with complaining of some dizziness for several days and headache. Patient had unremarkable physical exam and labs except for chronic renal insufficiency and CHF without new change even patient's daughter stated she gained about 5 pounds. Patient also complaining of chest pain without having chest pain in ER. Dr. Lynn on- call hospitalist accepted admission at 1615. Dragon Disclaimer Dragon Disclaimer This electronic medical record was generated, in whole or in part, using a voice recognition dictation system. Departure Departure: Impression: Primary Impression: Dizziness Additional Impressions: Chest pain Renal insufficiency CHF (congestive heart failure) Uncontrolled diabetes mellitus Disposition: ADMITTED INPATIENT (at 1617) Admitting Physician: Jess Lynn (accepted admission at 1615) Condition: STABLE Referrals: PATRICIA COOPER MD (PCP) Problem Qualifiers BRENDA DOMÍNGUEZ MD Apr 23, 2018 16:16
[2018-04-23 17:48] VITALS: BP 125/77
[2018-04-23] MEDS ORDERED: FURO80TA3 PO (18:09)
[2018-04-23] MEDS ORDERED: METO25TA4 PO (18:09)
--- NOTE | 2018-04-23 18:22 | NUR ---
Pt Jeremy Noriega was admitted to room 107 from ED for dizziness and chest pain. Upon arrival, pt A&Ox4, complains of dizziness. AV paced on tele. Will continue to monitor.
[2018-04-23] MEDS ORDERED: ALPRAZolam 0.5 MG TABLET PO PRN (19:45)
[2018-04-23] MEDS ORDERED: NON FORMULARY ITEM (Albuterol Sulfate (Albuterol Sulfate Neb Soln) 1 VIAL) NEB PRN (19:45)
[2018-04-23 19:52] VITALS: BP 126/85
[2018-04-23] MEDS ORDERED: ALBUTEROL SULFATE 2.5 MG/3 ML NEBU. NEB PRN (20:00)
[2018-04-23] MEDS: rOPINIRole 0.25 MG TABLET. PO SCH (21:08)
[2018-04-23] MEDS: traZODone 50 MG TABLET. PO SCH (21:08)
[2018-04-23] MEDS: HEPARIN PF for SUB-Q USE 5,000 UNIT/0.5 ML VIAL. SQ SCH (21:16)
[2018-04-23 23:00] VITALS: BP 130/79
[2018-04-24] MEDS: ACETAMINOPHEN 325 MG TABLET PO PRN ×2 (04:00→23:29)
[2018-04-24 05:00] VITALS: BP 132/61
[2018-04-24] MEDS: HEPARIN PF for SUB-Q USE 5,000 UNIT/0.5 ML VIAL. SQ SCH ×3 (06:10→21:37)
[2018-04-24 06:18] LABS: CALCIUM 9.2 mg/dL (8.5-10.1); CREATININE 2.1 mg/dL (0.6-1.0); POTASSIUM 4.5 mmol/L (3.5-5.1)
[2018-04-24 06:22] LABS: HEMATOCRIT 31.4 % (36.0-47.0); HEMOGLOBIN 10.3 g/dL (12.0-15.5); RED BLOOD COUNT 3.59 x10^6/uL (3.50-5.40); RED CELL DISTRIBUTION WIDTH 15.5 % (11.5-14.5)
[2018-04-24] MEDS: GLIMEPIRIDE 2 MG TABLET PO SCH (08:21)
[2018-04-24] MEDS: MAGNESIUM OXIDE 400 MG TABLET PO SCH (08:22)
[2018-04-24] MEDS: ASPIRIN 81 MG TAB.CHEW PO SCH (08:22)
[2018-04-24] MEDS: PANTOPRAZOLE 40 MG TABLET. PO SCH (08:22)
[2018-04-24 10:58] VITALS: BP 147/73
[2018-04-24] MEDS ORDERED: DEXTROSE 50% 25 GM / 50ML DISP.SYRIN. IV PRN (12:30)
[2018-04-24] MEDS: INSULIN LISPRO 300 UNITS/3 ML INSULN.PEN. SQ SCH ×2 (12:37→17:16)
--- NOTE | 2018-04-24 14:13 | PDOC2 ---
CONSULT Date of Admission DATE: 04/24/18 TIME: 14:12 Reason for Consult: Dizziness and chest pain Referring Physician: Dr. Lynn Chief Complaint Dizziness and chest pain Source: Chart review, Patient Problem List Problems Medical Problems: (1) Chest pain Status: Acute (2) CHF (congestive heart failure) Status: Acute (3) Dizziness Status: Acute (4) Renal insufficiency Status: Acute (5) Uncontrolled diabetes mellitus Status: Acute History of Present Illness 87-year-old female presented stating that she has been feeling dizzy with things spinning around for the last 5 days. Symptoms are worse with movement of her head. She also complained of intermittent episodes of left-sided inframammary chest pain not related to exertion or food intake. She denied any orthopnea/PND, palpitations or syncope. Past Medical History Coronary artery disease being followed by Dr. Dunn Sick sinus syndrome s/p permanent pacemaker implantation Paroxysmal atrial fibrillation Chronic diastolic heart failure Essential hypertension Hyperlipidemia Pulmonary hypertension DVT PAD Diabetes mellitus type 2 Osteoarthritis Chronic anemia CVA GERD Past Surgical History Permanent pacemaker implantation Bilateral knee arthroplasty Family History not contributory Social History Patient is a nonsmoker and a nondrinker Current Medications Current Medications Acetaminophen (Tylenol) 650 mg PRN Q6HRS PRN PO PAIN Last administered on at 04:00; Start 04/23/18 at 19:45 Non-Formulary Medication (Albuterol Sulfate (Albuterol Sulfate Neb Soln)) 1 vial QID PRN NEB SHORTNESS OF AIR; Start 04/23/18 at 19:45; Status UNV Alprazolam (Xanax) 0.5 mg PRN TID PRN PO ANXIETY / AGITATION; Start 04/23/18 at 19:45 Aspirin (Children'S Aspirin) 81 mg DAILYWBKFT PO Last administered on at 08:22; Start 04/24/18 at 08:00 Glimepiride (Amaryl) 4 mg DAILY PO Last administered on 04/24/18at 08:21; Start 04/24/18 at 09:00 Magnesium Oxide (Magnesium Oxide) 400 mg DAILY PO Last administered on at 08:22; Start 04/24/18 at 09:00 Pantoprazole Sodium (Protonix) 40 mg DAILY PO Last administered on 04/24/18at 08 :22; Start 04/24/18 at 09:00 Ropinirole HCl (Requip) 0.25 mg HS PO Last administered on 04/23/18at 21:08; Start 04/23/18 at 21:00 Trazodone HCl (Desyrel) 50 mg QHS PO Last administered on 04/23/18at 21:08; Start 04/23/18 at 21:00 Heparin Sodium (Porcine) (Heparin Sq) 5,000 unit Q8HRS SQ Last administered on 04/24/18at 06:10; Start 04/23/18 at 22:00 Albuterol Sulfate (Ventolin) 2.5 mg PRN QID PRN NEB SHORTNESS OF BREATH; Start 04/23/18 at 20:00 Insulin Human Lispro (HumaLOG) 0-7 UNITS TIDWMEALS SQ Last administered on 04/24at 12:37; Start 04/24/18 at 12:00 Dextrose 12.5 gm PRN Q15MIN PRN IV SEE COMMENTS; Start 04/24/18 at 12:30 Active Scripts Active Reported Metoprolol Tartrate 25 Mg Tablet 0.5 Tab PO DAILY Furosemide 80 Mg Tablet 1 Tab PO DAILY Vitamin D2 (Ergocalciferol (Vitamin D2)) 50,000 Unit Capsule 1 Cap PO WEEKLY LAST DOSE GIVEN: DATE: TIME: NEXT DOSE DUE: DATE: TIME: Glimepiride 4 Mg Tablet 1 Tab PO DAILY LAST DOSE GIVEN: DATE: TIME: NEXT DOSE DUE: DATE: TIME: Trazodone Hcl 50 Mg Tablet 1 Tab PO QHS LAST DOSE GIVEN: DATE: TIME: NEXT DOSE DUE: DATE: TIME: Requip (Ropinirole Hcl) 0.5 Mg Tablet 0.5 Tab PO QHS LAST DOSE GIVEN: DATE: TIME: NEXT DOSE DUE: DATE: TIME: Protonix (Pantoprazole Sodium) 40 Mg Tablet.dr 1 Tab PO DAILY LAST DOSE GIVEN: DATE: TIME: NEXT DOSE DUE: DATE: TIME: Aspirin 81 Mg Tab.chew 81 Mg PO DAILY LAST DOSE GIVEN: DATE: TIME: NEXT DOSE DUE: DATE: TIME: Isosorbide Mononitrate Er (Isosorbide Mononitrate) 30 Mg Tab.er.24h 1 Tab PO BID LAST DOSE GIVEN: DATE: TIME: NEXT DOSE DUE: DATE: TIME: Amlodipine Besylate 5 Mg Tablet 1 Tab PO BID LAST DOSE GIVEN: DATE: TIME: NEXT DOSE DUE: DATE: TIME: Albuterol Sulfate Neb Soln (Albuterol Sulfate) 0.63 Mg/3 Ml Vial.neb 1 Vial NEB QID PRN LAST DOSE GIVEN: DATE: TIME: NEXT DOSE DUE: DATE: TIME: Tylenol (Acetaminophen) 325 Mg Tablet 2 Tab PO PRN Q6HRS PRN LAST DOSE GIVEN: DATE: TIME: NEXT DOSE DUE: DATE: TIME: Magnesium Oxide 400 Mg Tablet 1 Tab PO DAILY LAST DOSE GIVEN: DATE: TIME: NEXT DOSE DUE: DATE: TIME: NITROGLYCERIN SubLingual (Nitroglycerin) 0.4 Mg Tab.subl 0.4 Mg SL PRN Q5MIN PRN LAST DOSE GIVEN: DATE: TIME: NEXT DOSE DUE: DATE: TIME: Xanax (Alprazolam) 0.25 Mg Tablet 0.5 Mg PO PRN TID PRN LAST DOSE GIVEN: DATE: TIME: NEXT DOSE DUE: DATE: TIME: Allergies: Coded Allergies: Influenza Virus Vaccines (Verified Allergy, Intermediate, GENERALIZED BODY /JOINT ACHES, 12/09/17) Penicillins (Verified Allergy, Intermediate, NAUSEA/VOMITING, 10/20/17) amoxicillin (Verified Allergy, Intermediate, Nausea/Vomiting, 10/20/17) cephalexin (Verified Allergy, Intermediate, Nausea/Vomiting, 10/20/17) clavulanic acid (Verified Allergy, Intermediate, Nausea/Vomiting, 10/20/17) metoclopramide (Verified Allergy, Intermediate, NAUSEA/VOMITING, 10/20/17) PSYCHOLOGICAL ROS: No: Hallucinations Eyes: No: Loss of vision HEENT: No: Epistaxis Respiratory: No: Hemoptysis, Shortness of breath Cardiovascular: yes: Chest Pain; No: Palpitations Gastrointestinal: YES: Nausea, Diarrhea; No: Vomiting Neurological: No: Seizures Skin: No: Rash General: Alert, No acute distress HEENT: Atraumatic, PERRLA Lungs: Clear to auscultation Heart: Regular rate Abdomen: Soft Extremities: No edema Psych/Mental Status: Mood NL VITALS Vital Signs Date Time Temp Pulse Resp B/P (MAP) Pulse Ox O2 Delivery O2 Flow Rate FiO2 04/24/18 10:58 98.3 59 18 147/73 (97) 98 04/24/18 05:00 Room Air Labs Laboratory Tests Test 04/23/18 14:53 04/23/18 15:08 04/23/18 19:45 04/23/18 20:23 White Blood Count 6.4 x10^3/uL (4.0-11.0) Red Blood Count 3.73 x10^6/uL (3.50-5.40) Hemoglobin 10.8 g/dL (12.0-15.5) Hematocrit 32.8 % (36.0-47.0) Mean Corpuscular Volume 88 fL (79-100) Mean Corpuscular Hemoglobin 29 pg (25-35) Mean Corpuscular Hemoglobin Concent 33 g/dL (31-37) Red Cell Distribution Width 15.5 % (11.5-14.5) Platelet Count 169 x10^3/uL (140-400) Neutrophils (%) (Auto) 66 % (31-73) Lymphocytes (%) (Auto) 25 % (24-48) Monocytes (%) (Auto) 6 % (0-9) Eosinophils (%) (Auto) 2 % (0-3) Basophils (%) (Auto) 1 % (0-3) Neutrophils # (Auto) 4.2 x10^3uL (1.8-7.7) Lymphocytes # (Auto) 1.6 x10^3/uL (1.0-4.8) Monocytes # (Auto) 0.4 x10^3/uL (0.0-1.1) Eosinophils # (Auto) 0.1 x10^3/uL (0.0-0.7) Basophils # (Auto) 0.1 x10^3/uL (0.0-0.2) Prothrombin Time 9.5 SEC (9.4-11.4) Prothromb Time International Ratio 1.0 (0.9-1.1) Sodium Level 137 mmol/L (136-145) Potassium Level 4.2 mmol/L (3.5-5.1) Chloride Level 99 mmol/L (98-107) Carbon Dioxide Level 34 mmol/L (21-32) Anion Gap 4 (6-14) Blood Urea Nitrogen 33 mg/dL (7-20) Creatinine 2.1 mg/dL (0.6-1.0) Estimated GFR (Cockcroft-Gault) 27.0 BUN/Creatinine Ratio 16 (6-20) Glucose Level 212 mg/dL (70-99) Calcium Level 9.6 mg/dL (8.5-10.1) Magnesium Level 2.4 mg/dL (1.8-2.4) Total Bilirubin 0.2 mg/dL (0.2-1.0) Aspartate Amino Transf (AST/SGOT) 14 U/L (15-37) Alanine Aminotransferase (ALT/SGPT) 21 U/L (14-59) Alkaline Phosphatase 49 U/L (46-116) Creatine Kinase 74 U/L (26-192) Troponin I Quantitative < 0.017 ng/mL (0-0.055) < 0.017 ng/mL (0-0.055) DD-Rrc-M-Type Natriuretic Peptide 1046 pg/mL (0-449) Total Protein 7.6 g/dL (6.4-8.2) Albumin 3.6 g/dL (3.4-5.0) Albumin/Globulin Ratio 0.9 (1.0-1.7) Lipase 80 U/L (73-393) Urine Collection Type Clean catch Urine Color Straw Urine Clarity Hazy Urine pH 7.5 Urine Specific [place] 1.015 Urine Protein Neg (NEG-TRACE) Urine Glucose (UA) Neg mg/dL (NEG) Urine Ketones (Stick) Neg mg/dL (NEG) Urine Blood Small (NEG) Urine Nitrite Neg (NEG) Urine Bilirubin Neg (NEG) Urine Urobilinogen Dipstick 0.2 mg/dL (0.2 mg/dL) Urine Leukocyte Esterase Neg (NEG) Urine RBC 0 /HPF (0-2) Urine WBC Rare /HPF (0-4) Urine Squamous Epithelial Cells Occ /LPF Urine Amorphous Sediment Present /HPF Urine Bacteria Few /HPF (0-FEW) Glucose (Fingerstick) 223 mg/dL (70-99) Test 04/23/18 22:15 04/24/18 05:30 04/24/18 11:34 Troponin I Quantitative < 0.017 ng/mL (0-0.055) White Blood Count 6.0 x10^3/uL (4.0-11.0) Red Blood Count 3.59 x10^6/uL (3.50-5.40) Hemoglobin 10.3 g/dL (12.0-15.5) Hematocrit 31.4 % (36.0-47.0) Mean Corpuscular Volume 87 fL (79-100) Mean Corpuscular Hemoglobin 29 pg (25-35) Mean Corpuscular Hemoglobin Concent 33 g/dL (31-37) Red Cell Distribution Width 15.5 % (11.5-14.5) Platelet Count 142 x10^3/uL (140-400) Sodium Level 137 mmol/L (136-145) Potassium Level 4.5 mmol/L (3.5-5.1) Chloride Level 101 mmol/L (98-107) Carbon Dioxide Level 32 mmol/L (21-32) Anion Gap 4 (6-14) Blood Urea Nitrogen 35 mg/dL (7-20) Creatinine 2.1 mg/dL (0.6-1.0) Estimated GFR (Cockcroft-Gault) 27.0 Glucose Level 176 mg/dL (70-99) Calcium Level 9.2 mg/dL (8.5-10.1) Glucose (Fingerstick) 314 mg/dL (70-99) Assessment/Plan 1. Dizziness most probably vertigo. Check orthostatics. Neurology team has been consulted 2. Chronic diastolic heart failure: Recent 2-D echo in January 2018 showed normal LV systolic function. She is clinically well compensated. Continue current medical regimen. 3. Paroxysmal atrial fibrillation: EKG and telemetry showed AV sequential paced rhythm. 4. Coronary artery disease: Clinically stable and chest pain-free. Continue current secondary prevention measures. 5. Hypertension: Controlled 6. Sick sinus syndrome s/p permanent pacemaker implantation. Recent device check showed normal function per patient. 7. Diabetes mellitus type 2, chronic kidney disease: Per Thank you for your consultation BOSSMAN DIAZ MD Apr 24, 2018 14:13
--- NOTE | 2018-04-24 14:56 | HP ---
ADMIT DATE: 04/23/2018 HISTORY OF PRESENT ILLNESS: The patient is an 87-year-old -[place] female patient who came to the Emergency Room complaining that she is feeling dizzy and feels things are spinning around. Dizziness has been going on for the last 5 days, getting worse with movement of her head and changes in position. She does complain of headache, nausea, but no vomiting. She did have watery stool and twice, denied any abdominal pain, denied any chest pain. She apparently was supposed to go and see an ENT surgeon, but was too sick yesterday, she was not able to do that. She apparently has been taking meclizine without improvement in her dizziness. She was evaluated in the Emergency Room and she has [id number] kidney injury and was admitted for further investigation. We held all her antihypertensive medication and diuretics. She did complain of this headache before and we checked her sed rate and CRP and were elevated, but she refused temporal artery biopsy. PAST MEDICAL HISTORY: Her past medical history is significant for coronary artery disease with recent unstable angina, essential hypertension, hypercholesterolemia, paroxysmal atrial fibrillation, chronic diastolic congestive heart failure, pulmonary hypertension. She also has chronic anemia, generalized osteoarthritis, previous history of deep vein thrombosis, type 2 diabetes mellitus and gastroesophageal reflux disease, peripheral arterial disease, history of stroke with no residual deficit, and sick sinus syndrome. PAST SURGICAL HISTORY: Past surgical history is significant for permanent pacemaker placement as well as bilateral knee arthroplasty. FAMILY HISTORY: Unremarkable. SOCIAL HISTORY: Lives at home with her son. She does not smoke, drink alcohol, or recreational drugs. She ambulates with a walker. REVIEW OF SYSTEMS: As per history of present illness. The patient denied any blurring of vision, cataract, glaucoma or macular degeneration. Denied any earache, tinnitus or sensorineural deafness. Denied any nosebleeds, stuffy nose or postnasal drip. Denied any sore throat, sore tongue, toothache, hoarseness of voice or difficulty swallowing. Did complain of nausea, but no vomiting. Did have loose bowel movement for 2 consecutive days. Denied any hematemesis, melena or hematochezia. Denied any dysuria, frequency or hematuria. Denied any chest pain. Did complain of shortness of breath. Denied any cough, phlegm or hemoptysis. Denied any chills, rigors or fever. Did complain of dizziness that is aggravated by movement and change in position. ALLERGIES: She is ALLERGIC TO INFLUENZA VIRUS VACCINE, PENICILLIN, AMOXICILLIN, CEPHALEXIN, CLAVULANIC ACID, and METOCLOPRAMIDE. MEDICATIONS: She is currently on following medications and she is on albuterol sulfate 0.60 mg in 3 mL by nebulizer 4 times a day, isosorbide mononitrate 30 mg twice a day, nitroglycerin 0.4 mg sublingually every 5 minutes x 3, metoprolol tartrate 25 mg half a tablet daily, amlodipine besylate 5 mg twice a day, aspirin 81 mg once a day, Tylenol 650 mg every 6 hours, trazodone 50 mg at bedtime, alprazolam 0.25 mg, she takes 0.5 mg 3 times a day, ropinirole 0.5 mg at bedtime, furosemide 80 mg once a day, magnesium oxide 400 mg daily, Protonix 40 mg daily, and glimepiride 4 mg p.o. daily, vitamin D 50,000 international units once a week. PHYSICAL EXAMINATION: GENERAL: On arrival to the Emergency Room, the patient looked well and was clearly in no apparent respiratory distress, slightly pale, no jaundice, cyanosis, or thyromegaly. No jugular venous distension. No lower limb edema. VITAL SIGNS: Her heart rate was 74, blood pressure was 144/64, temperature was 98.3, respiratory rate 20, and oxygen saturation was 98% on room air. HEENT: Examination of the head, eyes, ears, nose and throat showed normocephalic, atraumatic. NECK: Supple. HEART: Showed normal first and second sounds. No gallop, rub or murmur. CHEST: Clear to auscultation. No crepitation or rhonchi. ABDOMEN: Distended, soft, nontender. No guarding or rigidity. No organomegaly. Her hernial orifices are intact and bowel sounds normal. NEUROLOGIC: She is awake, alert, responding appropriately. Her cranial nerves are intact. EXTREMITIES: She moves extremities without difficulty. She ambulates with the walker. LABORATORY AND IMAGING STUDIES: Her lab works on arrival showed a white cell count of 6400, hemoglobin 11, hematocrit 33, MCV 88, and platelet count of 169,000. Her chemistry showed serum sodium 137, potassium 4.2, chloride 99, bicarbonate 34, anion gap of 4, BUN 33, creatinine 2.1, estimated GFR was 27 mL per minute. Her glucose was 112, calcium was 9.6, magnesium was 2.4. Total bilirubin, AST, ALT, alkaline phosphatase was normal. Her beta natriuretic peptide was 1046. Total protein was 7.6, albumin 3.6, and lipase was 18. Her prothrombin time was 9.5, INR of 1. Urinalysis showed the urine was straw colored, hazy with the pH of 7.5, specific gravity of 1.015. The urine was negative for protein, glucose, ketones, small amount of blood, negative for nitrite and leukocyte esterase. There are no RBC's, very rare WBC's, and very few bacteria. She did have a chest x-ray, which showed that there is no infiltrate, pleural effusion or pneumothorax. The heart size is normal. He has a cardiac pacemaker with leads in expected position. There is cervical spine and SI fusion instrumentation. There are prominent central pulmonary vascular shadows. CT scan of the head showed that the patient has no acute intracranial finding, subtle areas of hypodensity within the cerebral white matter, and nonspecific finding likely due to chronic small vessel disease. IMPRESSION AND PLAN: So, in summary, this is an 87-year-old -[place] female patient, who came in, complaining of dizziness that is aggravated by change in position and movement. She stated that she has also had multiple loose bowel movements. She also complained of diplopia and headache on two occasions before we checked her sed rate and C-reactive protein were high and I recommended temporal artery biopsy, but the patient refused. She also seemed to be somewhat delusional and she told me that she felt that her sister and her mother was sleeping with her in bed for the last two nights. I will hold all her antihypertensive medication and diuretics and also consult Dr. Aggarwal to see her as well as Dr. Reynoso to assist with her headache, diplopia, and dizziness. JAMES MULTANI MD DR: ESTEPHANIA/deepak JOB#: [id number] / [id number]
[2018-04-24 15:24] VITALS: BP 157/83
--- NOTE | 2018-04-24 18:46 | PDOC ---
Exam Note: Thaddeus Note: Please also refer to the separate dictated note~for this date of service dictated separately.~Patient seen individually. Discussed the patient with Nursing staff reviewed the chart.~Reviewed interim history and current functioning. Reviewed vital signs,~Labs/ Radiology~and current medications noted below. Continue current treatment with the changes noted in the dictated addendum note Assessment: Vital Signs: Vital Signs Date Time Temp Pulse Resp B/P (MAP) Pulse Ox O2 Delivery O2 Flow Rate FiO2 04/24/18 15:24 98.4 73 18 157/83 (107) 97 Room Air I&O Intake and Output 04/24/18 07:00 Intake Total 480 ml Balance 480 ml Intake Oral 480 ml # Voids 1 Labs: Laboratory Tests Test 04/23/18 19:45 04/23/18 20:23 04/23/18 22:15 04/24/18 05:30 Troponin I Quantitative < 0.017 ng/mL (0-0.055) < 0.017 ng/mL (0-0.055) Glucose (Fingerstick) 223 mg/dL (70-99) H White Blood Count 6.0 x10^3/uL (4.0-11.0) Red Blood Count 3.59 x10^6/uL (3.50-5.40) Hemoglobin 10.3 g/dL (12.0-15.5) L Hematocrit 31.4 % (36.0-47.0) L Mean Corpuscular Volume 87 fL (79-100) Mean Corpuscular Hemoglobin 29 pg (25-35) Mean Corpuscular Hemoglobin Concent 33 g/dL (31-37) Red Cell Distribution Width 15.5 % (11.5-14.5) H Platelet Count 142 x10^3/uL (140-400) Sodium Level 137 mmol/L (136-145) Potassium Level 4.5 mmol/L (3.5-5.1) Chloride Level 101 mmol/L (98-107) Carbon Dioxide Level 32 mmol/L (21-32) Anion Gap 4 (6-14) L Blood Urea Nitrogen 35 mg/dL (7-20) H Creatinine 2.1 mg/dL (0.6-1.0) H Estimated GFR (Cockcroft-Gault) 27.0 Glucose Level 176 mg/dL (70-99) H Calcium Level 9.2 mg/dL (8.5-10.1) Test 04/24/18 11:34 04/24/18 16:30 Glucose (Fingerstick) 314 mg/dL (70-99) H 160 mg/dL (70-99) H Current Medications: Meds: Current Medications Acetaminophen (Tylenol) 650 mg PRN Q6HRS PRN PO PAIN Last administered on at 04:00; Start 04/23/18 at 19:45 Non-Formulary Medication (Albuterol Sulfate (Albuterol Sulfate Neb Soln)) 1 vial QID PRN NEB SHORTNESS OF AIR; Start 04/23/18 at 19:45; Status UNV Alprazolam (Xanax) 0.5 mg PRN TID PRN PO ANXIETY / AGITATION; Start 04/23/18 at 19:45 Aspirin (Children'S Aspirin) 81 mg DAILYWBKFT PO Last administered on at 08:22; Start 04/24/18 at 08:00 Glimepiride (Amaryl) 4 mg DAILY PO Last administered on 04/24/18at 08:21; Start 04/24/18 at 09:00 Magnesium Oxide (Magnesium Oxide) 400 mg DAILY PO Last administered on at 08:22; Start 04/24/18 at 09:00 Pantoprazole Sodium (Protonix) 40 mg DAILY PO Last administered on 04/24/18at 08 :22; Start 04/24/18 at 09:00 Ropinirole HCl (Requip) 0.25 mg HS PO Last administered on 04/23/18at 21:08; Start 04/23/18 at 21:00 Trazodone HCl (Desyrel) 50 mg QHS PO Last administered on 04/23/18at 21:08; Start 04/23/18 at 21:00 Heparin Sodium (Porcine) (Heparin Sq) 5,000 unit Q8HRS SQ Last administered on 04/24/18at 14:54; Start 04/23/18 at 22:00 Albuterol Sulfate (Ventolin) 2.5 mg PRN QID PRN NEB SHORTNESS OF BREATH; Start 04/23/18 at 20:00 Insulin Human Lispro (HumaLOG) 0-7 UNITS TIDWMEALS SQ Last administered on 04/24at 17:16; Start 04/24/18 at 12:00 Dextrose 12.5 gm PRN Q15MIN PRN IV SEE COMMENTS; Start 04/24/18 at 12:30 Amlodipine Besylate (Norvasc) 5 mg BID PO ; Start 04/24/18 at 21:00 Active Scripts Active Reported Metoprolol Tartrate 25 Mg Tablet 0.5 Tab PO DAILY Furosemide 80 Mg Tablet 1 Tab PO DAILY Vitamin D2 (Ergocalciferol (Vitamin D2)) 50,000 Unit Capsule 1 Cap PO WEEKLY LAST DOSE GIVEN: DATE: TIME: NEXT DOSE DUE: DATE: TIME: Glimepiride 4 Mg Tablet 1 Tab PO DAILY LAST DOSE GIVEN: DATE: TIME: NEXT DOSE DUE: DATE: TIME: Trazodone Hcl 50 Mg Tablet 1 Tab PO QHS LAST DOSE GIVEN: DATE: TIME: NEXT DOSE DUE: DATE: TIME: Requip (Ropinirole Hcl) 0.5 Mg Tablet 0.5 Tab PO QHS LAST DOSE GIVEN: DATE: TIME: NEXT DOSE DUE: DATE: TIME: Protonix (Pantoprazole Sodium) 40 Mg Tablet.dr 1 Tab PO DAILY LAST DOSE GIVEN: DATE: TIME: NEXT DOSE DUE: DATE: TIME: Aspirin 81 Mg Tab.chew 81 Mg PO DAILY LAST DOSE GIVEN: DATE: TIME: NEXT DOSE DUE: DATE: TIME: Isosorbide Mononitrate Er (Isosorbide Mononitrate) 30 Mg Tab.er.24h 1 Tab PO BID LAST DOSE GIVEN: DATE: TIME: NEXT DOSE DUE: DATE: TIME: Amlodipine Besylate 5 Mg Tablet 1 Tab PO BID LAST DOSE GIVEN: DATE: TIME: NEXT DOSE DUE: DATE: TIME: Albuterol Sulfate Neb Soln (Albuterol Sulfate) 0.63 Mg/3 Ml Vial.neb 1 Vial NEB QID PRN LAST DOSE GIVEN: DATE: TIME: NEXT DOSE DUE: DATE: TIME: Tylenol (Acetaminophen) 325 Mg Tablet 2 Tab PO PRN Q6HRS PRN LAST DOSE GIVEN: DATE: TIME: NEXT DOSE DUE: DATE: TIME: Magnesium Oxide 400 Mg Tablet 1 Tab PO DAILY LAST DOSE GIVEN: DATE: TIME: NEXT DOSE DUE: DATE: TIME: NITROGLYCERIN SubLingual (Nitroglycerin) 0.4 Mg Tab.subl 0.4 Mg SL PRN Q5MIN PRN LAST DOSE GIVEN: DATE: TIME: NEXT DOSE DUE: DATE: TIME: Xanax (Alprazolam) 0.25 Mg Tablet 0.5 Mg PO PRN TID PRN LAST DOSE GIVEN: DATE: TIME: NEXT DOSE DUE: DATE: TIME: I have reviewed the current psychotropics carefully including drug interactions. Risk benefit ratio favors no change other than as noted in my dictated progress note. Diagnosis: Problems: (1) Anxiety disorder (2) Psychosis, atypical ANAM CUEVA MD Apr 24, 2018 18:45
[2018-04-24 19:00] VITALS: BP 149/98
[2018-04-24] MEDS: rOPINIRole 0.25 MG TABLET. PO SCH (21:29)
[2018-04-24] MEDS: amLODIPine BESYLATE 5 MG TABLET PO SCH (21:29)
[2018-04-24] MEDS: traZODone 50 MG TABLET. PO SCH (21:29)
--- NOTE | 2018-04-24 21:29 | PN ---
DATE: 04/24/2018 SUBJECTIVE: The patient is resting, slightly propped up in bed, in no apparent distress. She continued to complain of dizziness, feeling things spinning around, feeling nauseous. No vomiting. She has diplopia as well as headache. CT scan was unremarkable. Her lab work seems to be mostly stable as well as her vital signs. I held all her blood pressure medication and diuretics and given her delusions, I consulted Dr. Aggarwal and because of the diplopia, headache and vertigo, I consulted Dr. Reynoso. She unfortunately has a pacemaker, so we cannot do an MRI. She did have this headache before and her sed rate and C-reactive protein was elevated; however, she refused temporal artery biopsy twice before. PHYSICAL EXAMINATION: GENERAL: When I examined her this afternoon, she was resting slightly propped up in bed, in no apparent distress, slightly pale, but no jaundice, cyanosis, or thyromegaly. No jugular venous distension. No limb edema. VITAL SIGNS: Her heart rate was 59, blood pressure was 147/73, temperature was 98.3, respiratory rate was 18 and oxygen saturation was 98%. HEAD, EYES, EARS, NOSE AND THROAT: Showed normocephalic, atraumatic. NECK: Supple. HEART: Showed normal first and second heart sounds with no gallop, rub or murmur. CHEST: Clear to auscultation. No crepitation or rhonchi. ABDOMEN: Distended, soft, nontender. NEUROLOGIC: She was awake, alert, responding appropriately. All cranial nerves intact. She moves extremities without difficulty. She ambulates with a walker, feeling dizzy and nauseous when she moves around. Her intake over the last 24 hours was 118, output was recorded. LABORATORY DATA: Her lab work this morning showed a white cell count 6000, hemoglobin 10, hematocrit 31, MCV 87, and platelet count of 142,000. Her chemistry showed a serum sodium 137, potassium 4.5, chloride 101, bicarbonate 32, anion gap of 4, BUN 35, creatinine 2.1, estimated GFR was 27 mL per minute. Her glucose 176, calcium was 9.2. ASSESSMENT: Dizziness, vertigo with diplopia as well as headache. The patient also has some delusions or hallucinations. She said that she felt that her mother and her sister were sleeping with her in bed. She has numerous medical problems including congestive heart failure, type 2 diabetes, hypertension, atrial fibrillation. I plan to continue holding her diuretics and antihypertensive medication as long as her blood pressure remained stable. I will check her labs including sed rate and C-reactive protein and I have already consulted Dr. Reynoso and Dr. Aggarwal to evaluate and Dr. Broussard as she normally follows with the [facility]; however, that group does not come to this hospital on weekend. JAMES MULTANI MD DR: ESTEPHANIA/deepak JOB#: [id number] / [id number]
[2018-04-24 23:13] VITALS: BP 142/79
[2018-04-25] MEDS: HEPARIN PF for SUB-Q USE 5,000 UNIT/0.5 ML VIAL. SQ SCH ×3 (05:50→22:29)
[2018-04-25 06:17] VITALS: BP 113/72
[2018-04-25 06:52] LABS: HEMATOCRIT 32.7 % (36.0-47.0); HEMOGLOBIN 10.6 g/dL (12.0-15.5); RED BLOOD COUNT 3.7 x10^6/uL (3.50-5.40); RED CELL DISTRIBUTION WIDTH 15.2 % (11.5-14.5); WHITE BLOOD COUNT 5.9 x10^3/uL (4.0-11.0)
[2018-04-25 07:06] LABS: ALBUMIN 3.3 g/dL (3.4-5.0); C REACTIVE PROTEIN 9.2 mg/L (0-3.3); CALCIUM 9.3 mg/dL (8.5-10.1); GFR 28.5; POTASSIUM 4.6 mmol/L (3.5-5.1); TOTAL BILIRUBIN 0.3 mg/dL (0.2-1.0); TOTAL PROTEIN 6.7 g/dL (6.4-8.2)
[2018-04-25] MEDS: amLODIPine BESYLATE 5 MG TABLET PO SCH ×2 (08:29→21:09)
[2018-04-25] MEDS: MAGNESIUM OXIDE 400 MG TABLET PO SCH (08:29)
[2018-04-25] MEDS: PANTOPRAZOLE 40 MG TABLET. PO SCH (08:29)
[2018-04-25] MEDS: ASPIRIN 81 MG TAB.CHEW PO SCH (08:29)
[2018-04-25] MEDS: GLIMEPIRIDE 2 MG TABLET PO SCH (08:30)
[2018-04-25] MEDS: INSULIN LISPRO 300 UNITS/3 ML INSULN.PEN. SQ SCH ×3 (08:31→17:50)
--- NOTE | 2018-04-25 09:33 | PDOC ---
PROGRESS NOTES Diagnosis Problem Problems Medical Problems: (1) Chest pain Status: Acute (2) CHF (congestive heart failure) Status: Acute (3) Dizziness Status: Acute (4) Renal insufficiency Status: Acute (5) Uncontrolled diabetes mellitus Status: Acute Assessment 1. Dizziness most probably vertigo. Neurology team following 2. Chronic diastolic heart failure: Recent 2-D echo in January 2018 showed normal LV systolic function. She is clinically well compensated. Continue current medical regimen. 3. Paroxysmal atrial fibrillation: EKG and telemetry showed AV sequential paced rhythm. 4. Coronary artery disease: Clinically stable and chest pain-free. Continue current secondary prevention measures. 5. Hypertension: Controlled 6. Sick sinus syndrome s/p permanent pacemaker implantation. Recent device check showed normal function per patient. 7. Diabetes mellitus type 2, chronic kidney disease: Per IM Subjective Continues to complain of dizziness Objective Vital Signs Date Time Temp Pulse Resp B/P (MAP) Pulse Ox O2 Delivery O2 Flow Rate FiO2 04/25/18 08:29 70 113/72 04/25/18 06:17 97.7 18 98 Room Air Intake and Output 04/25/18 07:00 Intake Total 660 ml Output Total 950 ml Balance -290 ml Intake Oral 660 ml Output Urine Total 950 ml # Voids 1 Abdomen: Soft, No tenderness Heart: Regular rate Extremities: No edema General: Alert, No acute distress Lungs: Clear to auscultation Neck: Supple Psych/Mental Status: Mood NL Review of Relevant I have reviewed the following items alisha (where applicable) has been applied. Labs Laboratory Tests Test 04/23/18 14:53 04/23/18 15:08 04/23/18 19:45 04/23/18 20:23 White Blood Count 6.4 x10^3/uL (4.0-11.0) Red Blood Count 3.73 x10^6/uL (3.50-5.40) Hemoglobin 10.8 g/dL (12.0-15.5) Hematocrit 32.8 % (36.0-47.0) Mean Corpuscular Volume 88 fL (79-100) Mean Corpuscular Hemoglobin 29 pg (25-35) Mean Corpuscular Hemoglobin Concent 33 g/dL (31-37) Red Cell Distribution Width 15.5 % (11.5-14.5) Platelet Count 169 x10^3/uL (140-400) Neutrophils (%) (Auto) 66 % (31-73) Lymphocytes (%) (Auto) 25 % (24-48) Monocytes (%) (Auto) 6 % (0-9) Eosinophils (%) (Auto) 2 % (0-3) Basophils (%) (Auto) 1 % (0-3) Neutrophils # (Auto) 4.2 x10^3uL (1.8-7.7) Lymphocytes # (Auto) 1.6 x10^3/uL (1.0-4.8) Monocytes # (Auto) 0.4 x10^3/uL (0.0-1.1) Eosinophils # (Auto) 0.1 x10^3/uL (0.0-0.7) Basophils # (Auto) 0.1 x10^3/uL (0.0-0.2) Prothrombin Time 9.5 SEC (9.4-11.4) Prothromb Time International Ratio 1.0 (0.9-1.1) Sodium Level 137 mmol/L (136-145) Potassium Level 4.2 mmol/L (3.5-5.1) Chloride Level 99 mmol/L (98-107) Carbon Dioxide Level 34 mmol/L (21-32) Anion Gap 4 (6-14) Blood Urea Nitrogen 33 mg/dL (7-20) Creatinine 2.1 mg/dL (0.6-1.0) Estimated GFR (Cockcroft-Gault) 27.0 BUN/Creatinine Ratio 16 (6-20) Glucose Level 212 mg/dL (70-99) Calcium Level 9.6 mg/dL (8.5-10.1) Magnesium Level 2.4 mg/dL (1.8-2.4) Total Bilirubin 0.2 mg/dL (0.2-1.0) Aspartate Amino Transf (AST/SGOT) 14 U/L (15-37) Alanine Aminotransferase (ALT/SGPT) 21 U/L (14-59) Alkaline Phosphatase 49 U/L (46-116) Creatine Kinase 74 U/L (26-192) Troponin I Quantitative < 0.017 ng/mL (0-0.055) < 0.017 ng/mL (0-0.055) HK-Nto-G-Type Natriuretic Peptide 1046 pg/mL (0-449) Total Protein 7.6 g/dL (6.4-8.2) Albumin 3.6 g/dL (3.4-5.0) Albumin/Globulin Ratio 0.9 (1.0-1.7) Lipase 80 U/L (73-393) Urine Collection Type Clean catch Urine Color Straw Urine Clarity Hazy Urine pH 7.5 Urine Specific [place] 1.015 Urine Protein Neg (NEG-TRACE) Urine Glucose (UA) Neg mg/dL (NEG) Urine Ketones (Stick) Neg mg/dL (NEG) Urine Blood Small (NEG) Urine Nitrite Neg (NEG) Urine Bilirubin Neg (NEG) Urine Urobilinogen Dipstick 0.2 mg/dL (0.2 mg/dL) Urine Leukocyte Esterase Neg (NEG) Urine RBC 0 /HPF (0-2) Urine WBC Rare /HPF (0-4) Urine Squamous Epithelial Cells Occ /LPF Urine Amorphous Sediment Present /HPF Urine Bacteria Few /HPF (0-FEW) Glucose (Fingerstick) 223 mg/dL (70-99) Test 04/23/18 22:15 04/24/18 05:30 04/24/18 11:34 04/24/18 16:30 Troponin I Quantitative < 0.017 ng/mL (0-0.055) White Blood Count 6.0 x10^3/uL (4.0-11.0) Red Blood Count 3.59 x10^6/uL (3.50-5.40) Hemoglobin 10.3 g/dL (12.0-15.5) Hematocrit 31.4 % (36.0-47.0) Mean Corpuscular Volume 87 fL (79-100) Mean Corpuscular Hemoglobin 29 pg (25-35) Mean Corpuscular Hemoglobin Concent 33 g/dL (31-37) Red Cell Distribution Width 15.5 % (11.5-14.5) Platelet Count 142 x10^3/uL (140-400) Sodium Level 137 mmol/L (136-145) Potassium Level 4.5 mmol/L (3.5-5.1) Chloride Level 101 mmol/L (98-107) Carbon Dioxide Level 32 mmol/L (21-32) Anion Gap 4 (6-14) Blood Urea Nitrogen 35 mg/dL (7-20) Creatinine 2.1 mg/dL (0.6-1.0) Estimated GFR (Cockcroft-Gault) 27.0 Glucose Level 176 mg/dL (70-99) Calcium Level 9.2 mg/dL (8.5-10.1) Glucose (Fingerstick) 314 mg/dL (70-99) 160 mg/dL (70-99) Test 04/24/18 20:22 04/25/18 06:30 04/25/18 07:58 Glucose (Fingerstick) 191 mg/dL (70-99) 164 mg/dL (70-99) White Blood Count 5.9 x10^3/uL (4.0-11.0) Red Blood Count 3.70 x10^6/uL (3.50-5.40) Hemoglobin 10.6 g/dL (12.0-15.5) Hematocrit 32.7 % (36.0-47.0) Mean Corpuscular Volume 88 fL (79-100) Mean Corpuscular Hemoglobin 29 pg (25-35) Mean Corpuscular Hemoglobin Concent 33 g/dL (31-37) Red Cell Distribution Width 15.2 % (11.5-14.5) Platelet Count 156 x10^3/uL (140-400) Erythrocyte Sedimentation Rate 47 (0-25) Sodium Level 140 mmol/L (136-145) Potassium Level 4.6 mmol/L (3.5-5.1) Chloride Level 104 mmol/L (98-107) Carbon Dioxide Level 35 mmol/L (21-32) Anion Gap 1 (6-14) Blood Urea Nitrogen 31 mg/dL (7-20) Creatinine 2.0 mg/dL (0.6-1.0) Estimated GFR (Cockcroft-Gault) 28.5 BUN/Creatinine Ratio 16 (6-20) Glucose Level 170 mg/dL (70-99) Calcium Level 9.3 mg/dL (8.5-10.1) Total Bilirubin 0.3 mg/dL (0.2-1.0) Aspartate Amino Transf (AST/SGOT) 15 U/L (15-37) Alanine Aminotransferase (ALT/SGPT) 18 U/L (14-59) Alkaline Phosphatase 45 U/L (46-116) C-Reactive Protein 9.2 mg/L (0-3.3) Total Protein 6.7 g/dL (6.4-8.2) Albumin 3.3 g/dL (3.4-5.0) Albumin/Globulin Ratio 1.0 (1.0-1.7) Medications Current Medications Acetaminophen (Tylenol) 650 mg PRN Q6HRS PRN PO PAIN Last administered on 23:29; Start 04/23/18 at 19:45 Non-Formulary Medication (Albuterol Sulfate (Albuterol Sulfate Neb Soln)) 1 vial QID PRN NEB SHORTNESS OF AIR; Start 04/23/18 at 19:45; Status UNV Alprazolam (Xanax) 0.5 mg PRN TID PRN PO ANXIETY / AGITATION; Start 04/23/18 at 19:45 Aspirin (Children'S Aspirin) 81 mg DAILYWBKFT PO Last administered on 08:29; Start 04/24/18 at 08:00 Glimepiride (Amaryl) 4 mg DAILY PO Last administered on 04/25/18 08:30; Start 04/24/18 at 09:00 Magnesium Oxide (Magnesium Oxide) 400 mg DAILY PO Last administered on 08:29; Start 04/24/18 at 09:00 Pantoprazole Sodium (Protonix) 40 mg DAILY PO Last administered on 04/25/18 08 :29; Start 04/24/18 at 09:00 Ropinirole HCl (Requip) 0.25 mg HS PO Last administered on 04/24/18 21:29; Start 04/23/18 at 21:00 Trazodone HCl (Desyrel) 50 mg QHS PO Last administered on 04/24/18 21:29; Start 04/23/18 at 21:00 Heparin Sodium (Porcine) (Heparin Sq) 5,000 unit Q8HRS SQ Last administered on 04/25/18at 05:50; Start 04/23/18 at 22:00 Albuterol Sulfate (Ventolin) 2.5 mg PRN QID PRN NEB SHORTNESS OF BREATH; Start 04/23/18 at 20:00 Insulin Human Lispro (HumaLOG) 0-7 UNITS TIDWMEALS SQ Last administered on 04/25at 08:31; Start 04/24/18 at 12:00 Dextrose 12.5 gm PRN Q15MIN PRN IV SEE COMMENTS; Start 04/24/18 at 12:30 Amlodipine Besylate (Norvasc) 5 mg BID PO Last administered on 04/25/18at 08:29 ; Start 04/24/18 at 21:00 Active Scripts Active Reported Metoprolol Tartrate 25 Mg Tablet 0.5 Tab PO DAILY Furosemide 80 Mg Tablet 1 Tab PO DAILY Vitamin D2 (Ergocalciferol (Vitamin D2)) 50,000 Unit Capsule 1 Cap PO WEEKLY LAST DOSE GIVEN: DATE: TIME: NEXT DOSE DUE: DATE: TIME: Glimepiride 4 Mg Tablet 1 Tab PO DAILY LAST DOSE GIVEN: DATE: TIME: NEXT DOSE DUE: DATE: TIME: Trazodone Hcl 50 Mg Tablet 1 Tab PO QHS LAST DOSE GIVEN: DATE: TIME: NEXT DOSE DUE: DATE: TIME: Requip (Ropinirole Hcl) 0.5 Mg Tablet 0.5 Tab PO QHS LAST DOSE GIVEN: DATE: TIME: NEXT DOSE DUE: DATE: TIME: Protonix (Pantoprazole Sodium) 40 Mg Tablet.dr 1 Tab PO DAILY LAST DOSE GIVEN: DATE: TIME: NEXT DOSE DUE: DATE: TIME: Aspirin 81 Mg Tab.chew 81 Mg PO DAILY LAST DOSE GIVEN: DATE: TIME: NEXT DOSE DUE: DATE: TIME: Isosorbide Mononitrate Er (Isosorbide Mononitrate) 30 Mg Tab.er.24h 1 Tab PO BID LAST DOSE GIVEN: DATE: TIME: NEXT DOSE DUE: DATE: TIME: Amlodipine Besylate 5 Mg Tablet 1 Tab PO BID LAST DOSE GIVEN: DATE: TIME: NEXT DOSE DUE: DATE: TIME: Albuterol Sulfate Neb Soln (Albuterol Sulfate) 0.63 Mg/3 Ml Vial.neb 1 Vial NEB QID PRN LAST DOSE GIVEN: DATE: TIME: NEXT DOSE DUE: DATE: TIME: Tylenol (Acetaminophen) 325 Mg Tablet 2 Tab PO PRN Q6HRS PRN LAST DOSE GIVEN: DATE: TIME: NEXT DOSE DUE: DATE: TIME: Magnesium Oxide 400 Mg Tablet 1 Tab PO DAILY LAST DOSE GIVEN: DATE: TIME: NEXT DOSE DUE: DATE: TIME: NITROGLYCERIN SubLingual (Nitroglycerin) 0.4 Mg Tab.subl 0.4 Mg SL PRN Q5MIN PRN LAST DOSE GIVEN: DATE: TIME: NEXT DOSE DUE: DATE: TIME: Xanax (Alprazolam) 0.25 Mg Tablet 0.5 Mg PO PRN TID PRN LAST DOSE GIVEN: DATE: TIME: NEXT DOSE DUE: DATE: TIME: Vitals/I & O Vital Sign - Last 24 Hours 04/24/18 04/24/18 04/24/18 04/24/18 10:58 15:24 19:00 21:29 Temp 98.3 98.4 98.1 Pulse 59 73 78 78 Resp 18 18 18 B/P (MAP) 147/73 (97) 157/83 (107) 149/98 (115) 149/98 Pulse Ox 98 97 97 O2 Delivery Room Air Room Air 04/24/18 04/25/18 04/25/18 23:13 06:17 08:29 Temp 98.1 97.7 Pulse 73 70 70 Resp 18 B/P (MAP) 142/79 (100) 113/72 (86) 113/72 Pulse Ox 97 98 O2 Delivery Room Air Room Air Intake and Output 04/24/18 04/24/18 04/25/18 15:00 23:00 07:00 Intake Total 420 ml 240 ml Output Total 700 ml 250 ml Balance 420 ml -460 ml -250 ml BOSSMAN DIAZ MD Apr 25, 2018 09:33
--- NOTE | 2018-04-25 09:33 | CONS ---
DATE OF CONSULTATION: 04/24/2018 This is a late entry, 04/24/2018, covers the elements not covered in my initial note, 04/24/2018. SUBJECTIVE: I met with the patient the evening of 04/24/2018. IDENTIFYING DATA: The patient is an 87-year-old -[place] female seen in room 107, [address] [place] [address] for a psychiatric consult, requested by Dr. Lynn on the part of questionable hallucinations. The patient was seen individually, discussed with nursing staff, reviewed the chart. CHIEF COMPLAINT: "I am very sikh. I just had my mother and sister and we were very close. I said sometimes I find my mother and sister sitting next to me, helping me through this difficult time. I am not hallucinating. This is just my way to gain strength from my sikh beliefs. Two of my sons are having a lot of conflicts. It is very difficult for me and my mother. I am just reaching out for some strength from loved ones." HISTORY OF PRESENT ILLNESS: The patient lives at home with one of her sons who reportedly is much more educated and accomplished than the others. This has led to a conflict between the son and one of his brothers and they do not communicate or talk to each other. The rest of the family has been frustrated about this, but this seems to have affected the patient more than others since she is their mother. She reiterates that it is within this framework that she had voiced the above resulting in this referral. She initially presented to the ER complaining of feeling dizzy and feeling things are spinning around. The dizziness had been getting worse for 5 days with movements of her head change in position. She does have headache, nausea, but no vomiting. There is a question of temporal arteritis, but she has refused biopsy. She states her primary care physician, Dr. Medel recommended that given her general health, it may be best not to have a biopsy, but treat symptoms empirically. She was seen in the ER with acute on chronic kidney injury, admitted for further investigations. Reportedly, all antihypertensive medications and diuretics were discontinued. Her CRP and sed rate were elevated. PAST PSYCHIATRIC HISTORY: Noncontributory. She has been cognitively reasonably intact. 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 Hypovitaminosis D on vitamin D supplements. PAST SURGICAL HISTORY: Permanent pacemaker, bilateral knee arthroplasty. FAMILY HISTORY: Noncontributory. SOCIAL HISTORY: As noted, the patient lives with her one son. No alcohol or drug abuse history. She used to work for the [employer]. She ambulates with a walker. Cognitively, she is in reasonably intact. REVIEW OF SYSTEMS: No CV, , GI, or pulmonary, eye, ENT system symptoms on review. The patient does complain of some nausea, but no vomiting, has had some loose motions for about 2 days. ALLERGIES: INFLUENZA VACCINE, PENICILLIN, AMOXIL, KEFLEX, CLAVULANIC ACID, METOCLOPRAMIDE. CURRENT PSYCHOTROPICS: Xanax 0.5 mg 3 times a day, trazodone 50 mg at bedtime. MENTAL STATUS EXAMINATION: I sat with the patient at some length in her room for this evaluation. She is awake, alert, oriented, very pleasant, verbal, and cognitively intact. She denied being depressed, but is somewhat anxious, apprehensive, ruminating about the conflicts between her 2 sons and generally within the family has noted. Speech is coherent, abstraction fair, computation reasonable, language function intact, attention span fair. Mood and affect somewhat dysphoric at times. No suicidal or homicidal ideation. No clear psychotic symptoms. IMPRESSION: Adjustment disorder with depressed mood and anxiety versus major depressive disorder; anxiety disorder, unspecified. I do not see any clear indicators of psychosis. Rest as above. Recommendation from a psychiatric standpoint, I do not feel the patient has psychotic symptoms as explained above. It may be appropriate to continue her Xanax, but gradually reduce this over time. Trazodone at times could exacerbate her headaches and perhaps a trial of Remeron 7.5 mg by mouth at bedtime in place of the trazodone, may be more appropriate for her insomnia and should help her anxiety as well. Dr. Lynn, thank you for the opportunity to participate in your patient's care. We will follow with you. ANAM CUEVA MD DR: MICHELE/deepak JOB#: [id number] / [id number]
[2018-04-25 11:03] VITALS: BP 132/76
--- NOTE | 2018-04-25 12:35 | PN ---
DATE: 04/25/2018 SUBJECTIVE: The patient is resting slightly propped up in bed, in no apparent distress. She continued to complain of dizziness and things spinning around when she stands up. She also describes a curtain drops down in her eyes and her Romberg's test was positive indicating that she probably has also peripheral sensory neuropathy. Her sed rate and CRP were slightly elevated, but probably not significant. OBJECTIVE: GENERAL: When, examined her this morning, she was resting slightly propped up in bed, in no apparent respiratory distress, pale, but no jaundice, cyanosis, lymphadenopathy or thyromegaly. No jugular venous distention. No limb edema. VITAL SIGNS: His heart rate was 76, blood pressure 132/76, temperature was 97.9, respiratory rate was 18 and oxygen saturation was 99% on room air. HEAD, EYES, EARS, NOSE AND THROAT: Showed normocephalic, atraumatic. NECK: Supple. HEART: Showed normal first and second heart sounds with no gallop, rub or murmur. CHEST: Clear to auscultation. No crepitation or rhonchi. ABDOMEN: Distended, soft, nontender. No guarding or rigidity. No organomegaly. Hernial orifice intact. Bowel sounds normal. NEUROLOGIC: She is awake, alert, responding appropriately. Cranial nerves intact. She moves extremities without difficulty. She ambulates with a walker, with standby assist. Her intake was 480. No output was recorded. LABORATORY DATA: This morning showed white cell count of 5900, hemoglobin 10.6, hematocrit 33, MCV 88, and platelet count of 156,000. Her sed rate was 47. Her sodium was 140, potassium 4.6, chloride 104, bicarbonate 35, anion gap of 1, BUN 31, creatinine 2, estimated GFR was 28.5 mL per minute. Her glucose was 170, calcium was 9.3. Total bilirubin, AST, ALT, alkaline phosphatase were normal. Total protein was 6.7 and albumin was 3.3. Her C-reactive protein was 9.2 mg/dL and her sedimentation rate was 44 mm per hour. Her urinalysis was unremarkable. ASSESSMENT: 1. Dizziness, vertigo, diplopia as well as headache. She describes also what seems like a curtain drop in her eyes consistent with amaurosis fugax. The patient has multiple medical problems including chronic diastolic congestive heart failure. 2. Type 2 diabetes mellitus. 3. Hypertension. 4. Atrial fibrillation. 5. The patient has diabetic peripheral neuropathy and that might also be contributing to some sensory ataxia. PLAN: She was seen in consultation by Dr. Aggarwal and he does not feel that the patient has any evidence of psychosis and she normally sees the [facility] team; however, they are not here on the weekend, so we did consult Dr. Broussard who kindly saw the patient. My plan is to probably reintroduce her blood pressure medication. The patient will benefit from rehab and she wanted to be admitted to a swing bed again for rehabilitation before she goes home and this was also Dr. Reynoso's recommendation. JAMES MULTANI MD DR: ESTEPHANIA/deepak JOB#: [id number] / [id number]
--- NOTE | 2018-04-25 13:11 | RAD ---
Duplex ultrasound carotid arteries. HISTORY: Diplopia, vertigo, dizziness Duplex ultrasound was used to evaluate the abdomen carotid arteries. Real-time imaging, color Doppler and not Doppler with velocity determinations were utilized for evaluation. There is mild plaque in the right common carotid artery and at the carotid bifurcation. Peak velocity in the right internal carotid artery is 44 cm/s with a systolic velocity index of 1.5. There is antegrade flow in the right vertebral. Duplex ultrasound on the left side showed mild plaque at the carotid bifurcation. Peak velocity in the right internal carotid artery was 41 cm/s systolic velocity index of 1.3. There is antegrade flow in the left vertebral. End-diastolic velocities are normal bilaterally. IMPRESSION: 1. Mild plaque with less than 50 percent stenosis in the carotid arteries. 2. Antegrade flow in each vertebral. PQRS Compliance Statement - Stenosis calculations for carotid ultrasound studies are derived from validated velocity criteria which are known to correlate with the NASCET methodology. Electronically signed by: Anand Tobar MD (04/25/2018 1:08 PM) [facility]
--- NOTE | 2018-04-25 14:23 | CONS ---
DATE OF CONSULTATION: 04/24/2018 NEUROLOGIC CONSULTATION REFERRING PHYSICIAN: Jess Lynn MD REASON FOR CONSULTATION: Severe dizziness and unsteady gait. HISTORY OF PRESENT ILLNESS: This is an 87-year-old right-handed -[place] female, who has had several admissions in this institution in the past, was admitted through Emergency Room after she presented with a 5-day history of severe vertigo, described as "spinning induced by changing her body positions quickly or turning head to right or left sides quickly." The patient denies nausea, vomiting, but she complains of frequent generalized headaches, mainly on confined to the top of her head and sometimes have spells of vision disturbances described as a sudden shadows comes over the eyes, lasted a few minutes, comes and goes. The headaches described as frequent pressure like headaches, denies photophobia or phonophobia, rated at 5/10. The headache usually responds to Tylenol. She also complains of unsteady gait and tendency to fall backwards and sometimes to forwards. She has not had any falls recently. She uses a walker for ambulation. She also complains of intermittent numbness and paresthesia of the feet. In previous admissions, the patient was noticed to have elevated sed rate and CRP with a combination of headaches, it was recommended to have a biopsy of the temporal artery, but the patient declines any biopsies or surgeries. She was also recommended to see an ENT specialist, she had an appointment on 04/23/2018, but she was admitted through Emergency Room because of recurrent severe vertigo. The patient denies chest pain, shortness of breath or palpitation, dysarthria or dysphagia. PAST MEDICAL HISTORY: Significant for coronary artery disease, unstable angina, hypertension, hyperlipidemia, paroxysmal atrial fibrillations, anemia of chronic type and congestive heart failure, generalized osteoarthritis, diabetes mellitus type 2, GERD, restless leg syndrome, and peripheral arterial disease along with a history of stroke without significant focal neurological deficits. The patient also has a history of sick sinus syndrome, required a permanent pacemaker placement. PAST SURGICAL HISTORY: Significant for permanent pacemaker placement, bilateral total knee replacement. SOCIAL HISTORY: The patient lives with her son at home. She denies smoking, alcohol drinking, or illicit drug use. CURRENT MEDICATIONS: Include amlodipine 5 mg twice daily, insulin lispro, pantoprazole, magnesium oxide, glimepiride 4 mg daily, aspirin 81 mg daily, trazodone 50 mg at bedtime, ropinirole 0.25 mg at bedtime for restless leg syndrome, albuterol inhaler, alprazolam 0.5 mg for anxiety and Tylenol p.r.n. for pain. FAMILY HISTORY: Noncontributory. REVIEW OF SYSTEMS: A 10-point review of system was performed and as mentioned above in history of present illness, otherwise unremarkable. ALLERGIES: SHE IS ALLERGIC TO INFLUENZA VIRUS VACCINE, PENICILLIN, AMOXICILLIN, CEPHALEXIN, AUGMENTIN AND METOCLOPRAMIDE. PHYSICAL EXAMINATION: GENERAL: Well-developed, well-nourished -[place] female, not in acute distress. She weighs 180 pounds. VITAL SIGNS: Blood pressure is 157/83, respiratory rate 18, pulse is 73 and regular, temperature 98.4, and oxygen saturation 97% on room air. HEENT: Normocephalic, atraumatic, otherwise unremarkable. NECK: Supple. Negative for carotid bruit, lymphadenopathy, or thyromegaly. LUNGS: Clear to A and P. CARDIOVASCULAR: Regular rate and rhythm, normal S1, S2. ABDOMEN: Soft. Bowel sounds positive. EXTREMITIES: Negative for cyanosis, clubbing or edema. NEUROLOGIC: 1. MENTAL STATUS: The patient is alert and oriented x 3. The speech is fluent. There is no language dysfunction. Memory, judgment and abstract thinking are normal. The patient denies hallucination or delusion. 2. CRANIAL NERVES: Visual allen are full. The pupils are reactive to light and accommodation. The extraocular movements are intact. There is no nystagmus. There is no facial motor or sensory deficit. Hearing is intact bilaterally. The palate is elevated symmetrically. Sternocleidomastoid muscles are powerful bilaterally. The patient shrugs her shoulders symmetrically. Protrudes her tongue in the midline without fasciculation or atrophy. 3. MOTOR: No focal muscle bulk was seen. The tone is normal. The strength is 4/5 throughout. 4. SENSORY EXAMINATION: Revealed diminished pinprick and light touch senses in patchy distributions in both lower extremities. Romberg signs is positive. Deep tendon reflexes were symmetric and hypoactive with absent Achilles responses. Gait: The patient uses a walker for ambulation. DIAGNOSTIC DATA: Initial nonenhanced head CT scan revealed no evidence of acute intracranial process, but it showed chronic small vessel ischemic changes. Chest x-ray revealed no evidence of acute cardiopulmonary process. LABORATORY DATA: CBC revealed white blood cells of 6.4 thousand, hemoglobin 10.8, hematocrit 32.8, platelet count is 169,000. Chemistry revealed sodium of 137, potassium 4.2, chloride 99, CO2 34, BUN 33, creatinine 2.1 with estimated GFR is 27 per minute. Liver enzymes are normal. Glucose 112 and calcium 9.6 with a magnesium of 2.4. Carotid Doppler study performed on 07/16/2017 revealed diffuse atherosclerotic disease, estimated less than 50% of bilateral internal carotid artery. Urinalysis is negative for urinary tract infections. IMPRESSION: 1. Acute onset of vertigo, rule out paroxysmal benign positional vertigo versus vestibular dysfunctions. 2. Unsteady gait with positive Romberg and a history of diabetes mellitus, suggestive of a peripheral neuropathy. 3. Frequent headaches with symptoms suggestive of amaurosis fugax and sometimes diplopia, rule out transient ischemic attack. 4. Multiple medical problems include hypertension, hyperlipidemia, coronary artery disease, gastroesophageal reflux disease, status post permanent pacemaker placement, osteoarthritis with elevated sed rate and CRP. 5. Restless leg syndrome RECOMMENDATIONS: 1. Continue with current management initiated by Dr. Lynn and with aspirin for now. 2. We will repeat CT angio and CT of the neck. 3. Physical therapy as tolerated. 4. We will arrange for EMG/NCS of the lower extremities to rule out peripheral neuropathy, restless leg syndrome. M Kelin DONALD MD DR: LOLITA/deepak JOB#: [id number] / [id number]
--- NOTE | 2018-04-25 14:35 | PN ---
DATE: 04/25/2018 SUBJECTIVE: The patient continues to have intermittent headaches, confined to the top of her head and sometimes on the right temporal regions. She also complains of intermittent spells described as a sudden onset of shadows coming over her eyes bilaterally, may last a few minutes. She described lesser spells of vertigo. She denies any other new medical or neurological complaints. OBJECTIVE: GENERAL: Well-developed, well-nourished -[place] female, not in acute distress. VITAL SIGNS: Blood pressure 157/83, respiratory rate 18, pulse is 73, temperature 98.1, oxygen saturation 97% on room air. HEENT: Normocephalic, atraumatic, otherwise unremarkable. NECK: Supple. Negative for carotid bruit, lymphadenopathy or thyromegaly. LUNGS: Clear to A and P. CARDIOVASCULAR: Regular rate and rhythm, normal S1, S2. ABDOMEN: Soft. Bowel sounds positive. EXTREMITIES: Negative for cyanosis, clubbing or pitting edema. NEUROLOGIC: Mental status: The patient is alert and oriented x 3. Speech is fluent. There is no language dysfunction. Cranial nerves are intact. Motor examination reveals strength of 4/5 throughout. Sensory examination revealed diminished pinprick and light touch senses in patchy distributions. Deep tendon reflexes were symmetric and hypoactive with absent Achilles responses. Gait and coordination, the patient uses a walker for ambulation. She has normal [id number]-[id number] and [id number]-[id number]. LABORATORY DATA: Sodium is 140, potassium 4.6, chloride 104, CO2 of 23, BUN 31, creatinine 2, calcium 9.3. ASSESSMENT: 1. Paroxysmal benign positional vertigo. 2. Frequent headaches and sometimes symptoms suggestive of amaurosis fugax and possible TIA. 3. Multiple medical problems include chronic renal failure, peripheral neuropathy and peripheral vascular disease of the lower extremities, GERD, hypertension, hyperlipidemia, coronary artery disease, status post pacemaker placement and osteoarthritis. RECOMMENDATIONS: 1. Continue with current management as initiated by Dr. Lynn. 2. Continue with aspirin. 3. Would repeat a carotid Doppler study or CT angio of the neck to rule out worsening of carotid artery stenosis. M Kelin DONALD MD DR: LOLITA/deepak JOB#: [id number] / [id number]
[2018-04-25 14:49] VITALS: BP 152/76
[2018-04-25 19:30] VITALS: BP 149/61
[2018-04-25] MEDS: rOPINIRole 0.25 MG TABLET. PO SCH (21:09)
[2018-04-25] MEDS: traZODone 50 MG TABLET. PO SCH (21:09)
[2018-04-25 23:58] VITALS: BP 132/76
[2018-04-26 05:43] VITALS: BP 125/73
[2018-04-26 06:05] VITALS: BP_SYST 133; BP_SYST 146; BP_SYST 150; BP_DIAS 79; BP_DIAS 80; BP_DIAS 85
[2018-04-26 06:07] VITALS: BP 146/79
[2018-04-26] MEDS: ACETAMINOPHEN 325 MG TABLET PO PRN (06:08)
[2018-04-26] MEDS: HEPARIN PF for SUB-Q USE 5,000 UNIT/0.5 ML VIAL. SQ SCH (06:21)
[2018-04-26] MEDS: PANTOPRAZOLE 40 MG TABLET. PO SCH (08:41)
[2018-04-26] MEDS: ASPIRIN 81 MG TAB.CHEW PO SCH (08:41)
[2018-04-26] MEDS: amLODIPine BESYLATE 5 MG TABLET PO SCH (08:41)
[2018-04-26] MEDS: GLIMEPIRIDE 2 MG TABLET PO SCH (08:42)
[2018-04-26] MEDS: MAGNESIUM OXIDE 400 MG TABLET PO SCH (08:42)
[2018-04-26] MEDS: INSULIN LISPRO 300 UNITS/3 ML INSULN.PEN. SQ SCH ×2 (08:46→12:26)
[2018-04-26 10:55] VITALS: BP 133/77
--- NOTE | 2018-04-26 11:45 | RAD ---
Portable chest, 04/26/2018: HISTORY: Dyspnea Comparison is made to a study from 04/23/2018. 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 The heart size is unchanged. There is calcific plaquing the aorta. The pulmonary vascularity is normal. No pulmonary infiltrate is seen. There is no evidence of pleural fluid. IMPRESSION: No acute cardiopulmonary abnormality is detected. Electronically signed by: Santy Pan MD (04/26/2018 11:41 AM) [facility]
--- NOTE | 2018-04-26 16:43 | NUR ---
NSG NOTE; DISCHARGE TO [facility] SKILLED UNIT AT 1630 TO ROOM 128 VIA W/C. ALL PERSONAL ITEMS WENT WITH PT
--- NOTE | 2018-04-26 16:47 | PDOC3 ---
Discharge Summary Visit Information Date of Admission: Apr 23, 2018 Date of Discharge: Apr 26, 2018 Admitting Diagnosis: dizziness, acute on chronic kidney injury, diabetes Final Diagnosis Problems Medical Problems: (1) Chest pain Status: Acute (2) CHF (congestive heart failure) Status: Acute (3) Dizziness Status: Acute (4) Renal insufficiency Status: Acute (5) Uncontrolled diabetes mellitus Status: Acute Problems: (1) Diastolic CHF (2) Chronic atrial fibrillation (3) Wtqxu-nw-flpushr kidney injury (4) Diabetic neuropathy (5) BPV (benign positional vertigo) (6) Dehydration (7) Diabetes (8) Hypertension Brief Hospital Course Allergies Allergies Coded Allergies Type Severity Reaction Last Updated Verified Influenza Virus Vaccines Allergy Intermediate GENERALIZED BODY/JOINT ACHES 12/09 Yes Penicillins Allergy Intermediate NAUSEA/VOMITING 10/20/17 Yes amoxicillin Allergy Intermediate Nausea/Vomiting 10/20/17 Yes cephalexin Allergy Intermediate Nausea/Vomiting 10/20/17 Yes clavulanic acid Allergy Intermediate Nausea/Vomiting 10/20/17 Yes metoclopramide Allergy Intermediate NAUSEA/VOMITING 10/20/17 Yes Vital Signs Vital Signs Date Time Temp Pulse Resp B/P (MAP) Pulse Ox O2 Delivery O2 Flow Rate FiO2 04/26/18 10:55 98.3 74 16 133/77 (95) 98 Room Air Lab Results Laboratory Tests Test 04/24/18 20:22 04/25/18 06:30 04/25/18 07:58 04/25/18 11:35 Glucose (Fingerstick) 191 mg/dL (70-99) 164 mg/dL (70-99) 310 mg/dL (70-99) White Blood Count 5.9 x10^3/uL (4.0-11.0) Red Blood Count 3.70 x10^6/uL (3.50-5.40) Hemoglobin 10.6 g/dL (12.0-15.5) Hematocrit 32.7 % (36.0-47.0) Mean Corpuscular Volume 88 fL (79-100) Mean Corpuscular Hemoglobin 29 pg (25-35) Mean Corpuscular Hemoglobin Concent 33 g/dL (31-37) Red Cell Distribution Width 15.2 % (11.5-14.5) Platelet Count 156 x10^3/uL (140-400) Erythrocyte Sedimentation Rate 47 (0-25) Sodium Level 140 mmol/L (136-145) Potassium Level 4.6 mmol/L (3.5-5.1) Chloride Level 104 mmol/L (98-107) Carbon Dioxide Level 35 mmol/L (21-32) Anion Gap 1 (6-14) Blood Urea Nitrogen 31 mg/dL (7-20) Creatinine 2.0 mg/dL (0.6-1.0) Estimated GFR (Cockcroft-Gault) 28.5 BUN/Creatinine Ratio 16 (6-20) Glucose Level 170 mg/dL (70-99) Calcium Level 9.3 mg/dL (8.5-10.1) Total Bilirubin 0.3 mg/dL (0.2-1.0) Aspartate Amino Transf (AST/SGOT) 15 U/L (15-37) Alanine Aminotransferase (ALT/SGPT) 18 U/L (14-59) Alkaline Phosphatase 45 U/L (46-116) C-Reactive Protein 9.2 mg/L (0-3.3) Total Protein 6.7 g/dL (6.4-8.2) Albumin 3.3 g/dL (3.4-5.0) Albumin/Globulin Ratio 1.0 (1.0-1.7) Test 04/25/18 16:36 04/25/18 23:51 04/26/18 08:04 04/26/18 12:13 Glucose (Fingerstick) 160 mg/dL (70-99) 206 mg/dL (70-99) 166 mg/dL (70-99) 217 mg/dL (70-99) Brief Hospital Course Ms. Noriega is a 87 old female who presented to the emergency department complaining of dizziness a feeling as if she was spinning for the past 5 days. The symptoms were related to head position and movement, she had been scheduled to see an ear nose and throat surgeon the day prior but felt too sick to go. Sedimentation rate and CRP were found to be elevated however patient refused temporal artery biopsy. Labs revealed acute on chronic kidney injury and the patient was admitted for hydration, observation, and neurological evaluation. Her labs improved quickly with hydration and neurology determination for cause of dizziness was benign positional vertigo with contributions from patient's peripheral diabetic neuropathy. Once her condition was stabilized she had her family felt she would benefit from some PT and OT therefore she will be transferred to swing bed status. I find her to be resting comfortably denies any dizziness or other acute symptoms, no questions at this time. Constitutional: Thin slightly pale no acute distress, non-toxic appearance. HENT: Normocephalic, atraumatic, bilateral external ears normal, oropharynx moist, no oral exudates, nose normal. Neck: Normal range of motion, no tenderness, supple, no stridor. Cardiovascular: S1 N,S2N. No murmurs. No rubs or clicks. Thorax and Lungs: Normal respiration. Normal chest expansion. Normal to percuss. Equal breath sounds. No crackles. No wheeze. Abdomen: Bowel sounds normal, soft, no tenderness, no masses, no pulsatile masses. Skin: Warm, dry, no erythema, no rash. Back: No tenderness, no CVA tenderness. Extremities: Intact distal pulses, no tenderness, no cyanosis, no clubbing, ROM intact, no edema. Neurologic: Alert and oriented X 3, normal motor function, normal sensory function, no focal deficits noted. Psychologic: Affect normal, judgement normal, mood normal. Discharge Information Condition at Discharge: Improved Disposition/Orders: Other (swing bed status) Dischare Medications Current Medications Acetaminophen (Tylenol) 650 mg PRN Q6HRS PRN PO PAIN Last administered on at 06:08; Start 04/23/18 at 19:45; Stop 04/26/18 at 16:38; Status DC Non-Formulary Medication (Albuterol Sulfate (Albuterol Sulfate Neb Soln)) 1 vial QID PRN NEB SHORTNESS OF AIR; Start 04/23/18 at 19:45; Status UNV Alprazolam (Xanax) 0.5 mg PRN TID PRN PO ANXIETY / AGITATION; Start 04/23/18 at 19:45; Stop 04/26/18 at 16:38; Status DC Aspirin (Children'S Aspirin) 81 mg DAILYWBKFT PO Last administered on at 08:41; Start 04/24/18 at 08:00; Stop 04/26/18 at 16:38; Status DC Glimepiride (Amaryl) 4 mg DAILY PO Last administered on 04/26/18at 08:42; Start 04/24/18 at 09:00; Stop 04/26/18 at 16:38; Status DC Magnesium Oxide (Magnesium Oxide) 400 mg DAILY PO Last administered on at 08:42; Start 04/24/18 at 09:00; Stop 04/26/18 at 16:38; Status DC Pantoprazole Sodium (Protonix) 40 mg DAILY PO Last administered on 04/26/18at 08 :41; Start 04/24/18 at 09:00; Stop 04/26/18 at 16:38; Status DC Ropinirole HCl (Requip) 0.25 mg HS PO Last administered on 04/25/18at 21:09; Start 04/23/18 at 21:00; Stop 04/26/18 at 16:38; Status DC Trazodone HCl (Desyrel) 50 mg QHS PO Last administered on 04/25/18at 21:09; Start 04/23/18 at 21:00; Stop 04/26/18 at 16:38; Status DC Heparin Sodium (Porcine) (Heparin Sq) 5,000 unit Q8HRS SQ Last administered on 04/26/18at 06:21; Start 04/23/18 at 22:00; Stop 04/26/18 at 16:38; Status DC Albuterol Sulfate (Ventolin) 2.5 mg PRN QID PRN NEB SHORTNESS OF BREATH; Start 04/23/18 at 20:00; Stop 04/26/18 at 16:38; Status DC Insulin Human Lispro (HumaLOG) 0-7 UNITS TIDWMEALS SQ Last administered on 04/26at 12:26; Start 04/24/18 at 12:00; Stop 04/26/18 at 16:38; Status DC Dextrose 12.5 gm PRN Q15MIN PRN IV SEE COMMENTS; Start 04/24/18 at 12:30; Stop 04/26/18 at 16:38; Status DC Amlodipine Besylate (Norvasc) 5 mg BID PO Last administered on 04/26/18at 08:41 ; Start 04/24/18 at 21:00; Stop 04/26/18 at 16:38; Status DC Active Scripts Active Reported Metoprolol Tartrate 25 Mg Tablet 0.5 Tab PO DAILY Furosemide 80 Mg Tablet 1 Tab PO DAILY Vitamin D2 (Ergocalciferol (Vitamin D2)) 50,000 Unit Capsule 1 Cap PO WEEKLY LAST DOSE GIVEN: DATE: TIME: NEXT DOSE DUE: DATE: TIME: Glimepiride 4 Mg Tablet 1 Tab PO DAILY LAST DOSE GIVEN: DATE: TIME: NEXT DOSE DUE: DATE: TIME: Trazodone Hcl 50 Mg Tablet 1 Tab PO QHS LAST DOSE GIVEN: DATE: TIME: NEXT DOSE DUE: DATE: TIME: Requip (Ropinirole Hcl) 0.5 Mg Tablet 0.5 Tab PO QHS LAST DOSE GIVEN: DATE: TIME: NEXT DOSE DUE: DATE: TIME: Protonix (Pantoprazole Sodium) 40 Mg Tablet.dr 1 Tab PO DAILY LAST DOSE GIVEN: DATE: TIME: NEXT DOSE DUE: DATE: TIME: Aspirin 81 Mg Tab.chew 81 Mg PO DAILY LAST DOSE GIVEN: DATE: TIME: NEXT DOSE DUE: DATE: TIME: Isosorbide Mononitrate Er (Isosorbide Mononitrate) 30 Mg Tab.er.24h 1 Tab PO BID LAST DOSE GIVEN: DATE: TIME: NEXT DOSE DUE: DATE: TIME: Amlodipine Besylate 5 Mg Tablet 1 Tab PO BID LAST DOSE GIVEN: DATE: TIME: NEXT DOSE DUE: DATE: TIME: Albuterol Sulfate Neb Soln (Albuterol Sulfate) 0.63 Mg/3 Ml Vial.neb 1 Vial NEB QID PRN LAST DOSE GIVEN: DATE: TIME: NEXT DOSE DUE: DATE: TIME: Tylenol (Acetaminophen) 325 Mg Tablet 2 Tab PO PRN Q6HRS PRN LAST DOSE GIVEN: DATE: TIME: NEXT DOSE DUE: DATE: TIME: Magnesium Oxide 400 Mg Tablet 1 Tab PO DAILY LAST DOSE GIVEN: DATE: TIME: NEXT DOSE DUE: DATE: TIME: NITROGLYCERIN SubLingual (Nitroglycerin) 0.4 Mg Tab.subl 0.4 Mg SL PRN Q5MIN PRN LAST DOSE GIVEN: DATE: TIME: NEXT DOSE DUE: DATE: TIME: Xanax (Alprazolam) 0.25 Mg Tablet 0.5 Mg PO PRN TID PRN LAST DOSE GIVEN: DATE: TIME: NEXT DOSE DUE: DATE: TIME: Problem Qualifiers (1) Diastolic CHF: Heart failure chronicity: chronic Qualified Codes: I50.32 - Chronic diastolic (congestive) heart failure (2) Ccrju-[id number]-[id number] kidney injury: Acute renal failure type: unspecified Chronic kidney disease stage: unspecified stage Qualified Codes: N17.9 - Acute kidney failure, unspecified; N18.9 - Chronic kidney disease, unspecified (3) Diabetic neuropathy: Diabetes mellitus type: type 2 Diabetes mellitus complication detail: diabetic autonomic neuropathy Qualified Codes: E11.43 - Type 2 diabetes mellitus with diabetic autonomic (poly)neuropathy (4) BPV (benign positional vertigo): Laterality: unspecified laterality Qualified Codes: H81.10 - Benign paroxysmal vertigo, unspecified ear (5) Diabetes: Diabetes mellitus type: type 2 Diabetes mellitus sprue knocker insulin use: unspecified sprue knocker insulin use status Diabetes mellitus complication status : with kidney complications Diabetes mellitus complication detail: with chronic kidney disease Chronic kidney disease stage: unspecified stage Qualified Codes: E11.22 - Type 2 diabetes mellitus with diabetic chronic kidney disease (6) Hypertension: Hypertension type: essential hypertension Qualified Codes: I10 - Essential ( primary) hypertension ANDREW DOLL DO Apr 26, 2018 16:47
--- NOTE | 2018-04-26 16:51 | PDOC ---
ERIKNEELAM Indira DIRECTOR SELECTION AND ADMINISTRATION 04/26/18 1651: PROGRESS NOTES Diagnosis Problem Problems Medical Problems: (1) Chest pain Status: Acute (2) CHF (congestive heart failure) Status: Acute (3) Dizziness Status: Acute (4) Renal insufficiency Status: Acute (5) Uncontrolled diabetes mellitus Status: Acute Assessment Problems Medical Problems: (1) Chest pain Status: Acute (2) CHF (congestive heart failure) Status: Acute (3) Dizziness Status: Acute (4) Renal insufficiency Status: Acute (5) Uncontrolled diabetes mellitus Status: Acute 1. Dizziness most probably vertigo, improving. mgmt per Neurology. 2. Chronic diastolic heart failure: clinically well compensated. Continue current medical regimen. 3. Paroxysmal atrial fibrillation: EKG and telemetry showed AV sequential paced rhythm. 4. Coronary artery disease: Clinically stable and angina pain-free. Continue current secondary prevention measures. follow up with primary workcell operator. 5. Hypertension: Controlled on current therapy 6. Sick sinus syndrome s/p permanent pacemaker implantation. Recent device check showed normal function per patient. 7. Diabetes mellitus type 2, chronic kidney disease: Per IM Continue supportive care. Subjective c/o headache and cough. otherwise reports feeling better. no chest pain today. no palpitations. no more dizziness today Objective Vital Signs Date Time Temp Pulse Resp B/P (MAP) Pulse Ox O2 Delivery O2 Flow Rate FiO2 04/26/18 10:55 98.3 74 16 133/77 (95) 98 Room Air Intake and Output 04/26/18 07:00 Intake Total 760 ml Balance 760 ml Intake Oral 760 ml # Voids 3 # Bowel Movements 1 Abdomen: Normal bowel sounds, Soft, No tenderness Heart: Regular rate, Normal S1, Normal S2 Extremities: No cyanosis, No edema, Normal pulses General: Alert, Oriented X3, Cooperative, No acute distress Lungs: Clear to auscultation Neuro: Normal speech Psych/Mental Status: Mental status NL, Mood NL Review of Relevant I have reviewed the following items alisha (where applicable) has been applied. Labs Laboratory Tests Test 04/24/18 20:22 04/25/18 06:30 04/25/18 07:58 04/25/18 11:35 Glucose (Fingerstick) 191 mg/dL (70-99) 164 mg/dL (70-99) 310 mg/dL (70-99) White Blood Count 5.9 x10^3/uL (4.0-11.0) Red Blood Count 3.70 x10^6/uL (3.50-5.40) Hemoglobin 10.6 g/dL (12.0-15.5) Hematocrit 32.7 % (36.0-47.0) Mean Corpuscular Volume 88 fL (79-100) Mean Corpuscular Hemoglobin 29 pg (25-35) Mean Corpuscular Hemoglobin Concent 33 g/dL (31-37) Red Cell Distribution Width 15.2 % (11.5-14.5) Platelet Count 156 x10^3/uL (140-400) Erythrocyte Sedimentation Rate 47 (0-25) Sodium Level 140 mmol/L (136-145) Potassium Level 4.6 mmol/L (3.5-5.1) Chloride Level 104 mmol/L (98-107) Carbon Dioxide Level 35 mmol/L (21-32) Anion Gap 1 (6-14) Blood Urea Nitrogen 31 mg/dL (7-20) Creatinine 2.0 mg/dL (0.6-1.0) Estimated GFR (Cockcroft-Gault) 28.5 BUN/Creatinine Ratio 16 (6-20) Glucose Level 170 mg/dL (70-99) Calcium Level 9.3 mg/dL (8.5-10.1) Total Bilirubin 0.3 mg/dL (0.2-1.0) Aspartate Amino Transf (AST/SGOT) 15 U/L (15-37) Alanine Aminotransferase (ALT/SGPT) 18 U/L (14-59) Alkaline Phosphatase 45 U/L (46-116) C-Reactive Protein 9.2 mg/L (0-3.3) Total Protein 6.7 g/dL (6.4-8.2) Albumin 3.3 g/dL (3.4-5.0) Albumin/Globulin Ratio 1.0 (1.0-1.7) Test 04/25/18 16:36 04/25/18 23:51 04/26/18 08:04 04/26/18 12:13 Glucose (Fingerstick) 160 mg/dL (70-99) 206 mg/dL (70-99) 166 mg/dL (70-99) 217 mg/dL (70-99) Medications Current Medications Acetaminophen (Tylenol) 650 mg PRN Q6HRS PRN PO PAIN Last administered on at 06:08; Start 04/23/18 at 19:45; Stop 04/26/18 at 16:38; Status DC Non-Formulary Medication (Albuterol Sulfate (Albuterol Sulfate Neb Soln)) 1 vial QID PRN NEB SHORTNESS OF AIR; Start 04/23/18 at 19:45; Status UNV Alprazolam (Xanax) 0.5 mg PRN TID PRN PO ANXIETY / AGITATION; Start 04/23/18 at 19:45; Stop 04/26/18 at 16:38; Status DC Aspirin (Children'S Aspirin) 81 mg DAILYWBKFT PO Last administered on at 08:41; Start 04/24/18 at 08:00; Stop 04/26/18 at 16:38; Status DC Glimepiride (Amaryl) 4 mg DAILY PO Last administered on 04/26/18at 08:42; Start 04/24/18 at 09:00; Stop 04/26/18 at 16:38; Status DC Magnesium Oxide (Magnesium Oxide) 400 mg DAILY PO Last administered on at 08:42; Start 04/24/18 at 09:00; Stop 04/26/18 at 16:38; Status DC Pantoprazole Sodium (Protonix) 40 mg DAILY PO Last administered on 04/26/18at 08 :41; Start 04/24/18 at 09:00; Stop 04/26/18 at 16:38; Status DC Ropinirole HCl (Requip) 0.25 mg HS PO Last administered on 04/25/18at 21:09; Start 04/23/18 at 21:00; Stop 04/26/18 at 16:38; Status DC Trazodone HCl (Desyrel) 50 mg QHS PO Last administered on 04/25/18at 21:09; Start 04/23/18 at 21:00; Stop 04/26/18 at 16:38; Status DC Heparin Sodium (Porcine) (Heparin Sq) 5,000 unit Q8HRS SQ Last administered on 04/26/18at 06:21; Start 04/23/18 at 22:00; Stop 04/26/18 at 16:38; Status DC Albuterol Sulfate (Ventolin) 2.5 mg PRN QID PRN NEB SHORTNESS OF BREATH; Start 04/23/18 at 20:00; Stop 04/26/18 at 16:38; Status DC Insulin Human Lispro (HumaLOG) 0-7 UNITS TIDWMEALS SQ Last administered on 04/26at 12:26; Start 04/24/18 at 12:00; Stop 04/26/18 at 16:38; Status DC Dextrose 12.5 gm PRN Q15MIN PRN IV SEE COMMENTS; Start 04/24/18 at 12:30; Stop 04/26/18 at 16:38; Status DC Amlodipine Besylate (Norvasc) 5 mg BID PO Last administered on 04/26/18at 08:41 ; Start 04/24/18 at 21:00; Stop 04/26/18 at 16:38; Status DC Active Scripts Active Reported Metoprolol Tartrate 25 Mg Tablet 0.5 Tab PO DAILY Furosemide 80 Mg Tablet 1 Tab PO DAILY Vitamin D2 (Ergocalciferol (Vitamin D2)) 50,000 Unit Capsule 1 Cap PO WEEKLY LAST DOSE GIVEN: DATE: TIME: NEXT DOSE DUE: DATE: TIME: Glimepiride 4 Mg Tablet 1 Tab PO DAILY LAST DOSE GIVEN: DATE: TIME: NEXT DOSE DUE: DATE: TIME: Trazodone Hcl 50 Mg Tablet 1 Tab PO QHS LAST DOSE GIVEN: DATE: TIME: NEXT DOSE DUE: DATE: TIME: Requip (Ropinirole Hcl) 0.5 Mg Tablet 0.5 Tab PO QHS LAST DOSE GIVEN: DATE: TIME: NEXT DOSE DUE: DATE: TIME: Protonix (Pantoprazole Sodium) 40 Mg Tablet.dr 1 Tab PO DAILY LAST DOSE GIVEN: DATE: TIME: NEXT DOSE DUE: DATE: TIME: Aspirin 81 Mg Tab.chew 81 Mg PO DAILY LAST DOSE GIVEN: DATE: TIME: NEXT DOSE DUE: DATE: TIME: Isosorbide Mononitrate Er (Isosorbide Mononitrate) 30 Mg Tab.er.24h 1 Tab PO BID LAST DOSE GIVEN: DATE: TIME: NEXT DOSE DUE: DATE: TIME: Amlodipine Besylate 5 Mg Tablet 1 Tab PO BID LAST DOSE GIVEN: DATE: TIME: NEXT DOSE DUE: DATE: TIME: Albuterol Sulfate Neb Soln (Albuterol Sulfate) 0.63 Mg/3 Ml Vial.neb 1 Vial NEB QID PRN LAST DOSE GIVEN: DATE: TIME: NEXT DOSE DUE: DATE: TIME: Tylenol (Acetaminophen) 325 Mg Tablet 2 Tab PO PRN Q6HRS PRN LAST DOSE GIVEN: DATE: TIME: NEXT DOSE DUE: DATE: TIME: Magnesium Oxide 400 Mg Tablet 1 Tab PO DAILY LAST DOSE GIVEN: DATE: TIME: NEXT DOSE DUE: DATE: TIME: NITROGLYCERIN SubLingual (Nitroglycerin) 0.4 Mg Tab.subl 0.4 Mg SL PRN Q5MIN PRN LAST DOSE GIVEN: DATE: TIME: NEXT DOSE DUE: DATE: TIME: Xanax (Alprazolam) 0.25 Mg Tablet 0.5 Mg PO PRN TID PRN LAST DOSE GIVEN: DATE: TIME: NEXT DOSE DUE: DATE: TIME: Vitals/I & O Vital Sign - Last 24 Hours 04/25/18 04/25/18 04/25/18 04/26/18 19:30 21:09 23:58 05:43 Temp 98.2 98.1 98.1 Pulse 72 70 73 74 B/P (MAP) 149/61 (90) 152/76 132/76 (94) 125/73 (90) Pulse Ox 95 97 94 O2 Delivery Room Air 04/26/18 04/26/18 04/26/18 06:05 08:41 10:55 Temp 98.3 Pulse 71 71 74 Resp 16 B/P (MAP) 150/80 (103) 150/80 133/77 (95) 146/79 (101) 133/85 (101) Pulse Ox 98 O2 Delivery Room Air Intake and Output 04/25/18 04/25/18 04/26/18 15:00 23:00 07:00 Intake Total 240 ml 520 ml Balance 240 ml 520 ml BOSSMAN DIAZ MD 04/26/18 1706: PROGRESS NOTES Assessment Patient seen and examined. Agree with SKIN CARE SPECIALIST's assessment and plan Dizziness most probably vertigo. Neurology team following. Chronic diastolic heart failure well compensated. SSS s/p PPM, stable Continue current medical regimen NEELAM VALENCIA APRN Apr 26, 2018 16:51 BOSSMAN DIAZ MD Apr 26, 2018 17:06
--- NOTE | 2018-04-27 06:59 | PN ---
DATE: 04/26/2018 SUBJECTIVE: The patient denies any new medical or neurological complaints. She continues to have intermittent mild dizzy spell induced by changing her body positions or turning head quickly to any directions. OBJECTIVE: GENERAL: Well-developed, well-nourished -[place] female, not in acute distress. VITAL SIGNS: Blood pressure 133/77, respiratory rate 16, pulse is 74 and regular, oxygen saturation is 98% on room air, temperature 98.3. HEENT: Normocephalic, atraumatic, otherwise unremarkable. NECK: Supple. Negative for carotid bruit, lymphadenopathy or thyromegaly. LUNGS: Clear to A and P. CARDIOVASCULAR: Regular rate and rhythm, normal S1, S2. There is no S3, S4, or murmur. ABDOMEN: Soft. Bowel sounds positive. EXTREMITIES: Negative for cyanosis, clubbing or pitting edema. NEUROLOGICAL EXAM: Mental Status: The patient is alert and oriented x 3. Speech is fluent. There is no language dysfunction, otherwise unremarkable. Cranial nerves are intact. Motor Examination: No focal muscle bulk was seen. The strength was 4/5 throughout. Sensory examination revealed diminished pinprick and light touch senses in patchy distributions in both lower extremities. Deep tendon reflexes were symmetric and hypoactive with absent acute responses. Gait: The patient uses a walker for ambulation. IMPRESSION: 1. Acute onset of vertigo -- improved, represent a paroxysmal benign positional vertigo versus vestibular dysfunctions. 2. Unsteady gait, rule out diabetic peripheral neuropathy in the lower extremities. 3. Questionable of transient ischemic attack, presented with symptoms of amaurosis fugax; however, repeated carotid Doppler study revealed no evidence of acute carotid artery stenosis. 4. Multiple medical problems include hypertension, hyperlipidemia, coronary artery disease, diabetes mellitus, gastroesophageal reflux disease, status post permanent pacemaker placement, restless leg syndrome. RECOMMENDATIONS: 1. Continue with current management initiated by Cardiology and Dr. Jess Lynn. 2. Physical therapy as tolerated. The [facility] physical therapy and occupational therapy. M Kelin DONALD MD DR: LOLITA/deepak JOB#: [id number] / [id number]
== END 2018-04-26 16:37 | DRG 149 ==
LOC: ER 14:19 → 1 SOUTH 17:16
PROVIDERS: ADMIT Internal Medicine; ATTEND Internal Medicine
DX: H81.10 Benign paroxysmal vertigo, unspecified ear (principal); I13.0 Hypertensive heart and chronic kidney disease with heart failure and stage 1 through stage 4 chronic kidney disease, or unspecified chronic kidney disease; I50.32 Chronic diastolic (congestive) heart failure; N17.9 Acute kidney failure, unspecified; E11.51 Type 2 diabetes mellitus with diabetic peripheral angiopathy without gangrene; E11.65 Type 2 diabetes mellitus with hyperglycemia; E11.42 Type 2 diabetes mellitus with diabetic polyneuropathy; E11.22 Type 2 diabetes mellitus with diabetic chronic kidney disease; Z96.649 Presence of unspecified artificial hip joint; K21.9 Gastro-esophageal reflux disease without esophagitis; I48.0 Paroxysmal atrial fibrillation; M15.9 Polyosteoarthritis, unspecified; I27.20 Pulmonary hypertension, unspecified; I25.10 Atherosclerotic heart disease of native coronary artery without angina pectoris; F41.9 Anxiety disorder, unspecified; F22 Delusional disorders; Z96.653 Presence of artificial knee joint, bilateral; E78.5 Hyperlipidemia, unspecified; G25.81 Restless legs syndrome; E78.00 Pure hypercholesterolemia, unspecified; N18.9 Chronic kidney disease, unspecified; Z86.718 Personal history of other venous thrombosis and embolism; Z86.73 Personal history of transient ischemic attack (TIA), and cerebral infarction without residual deficits; Z95.0 Presence of cardiac pacemaker; Z87.440 Personal history of urinary (tract) infections; Z87.01 Personal history of pneumonia (recurrent); Z79.899 Other long term (current) drug therapy; Z90.49 Acquired absence of other specified parts of digestive tract; Z88.1 Allergy status to other antibiotic agents; Z88.0 Allergy status to penicillin; Z88.7 Allergy status to serum and vaccine; Z88.8 Allergy status to other drugs, medicaments and biological substances
CPT/HCPCS: 36415; 70450; 71045; 80048; 80053; 81001; 82550; 82947; 83690; 83735; 83880; 84484; 85025; 85027; 85610; 85651; 86140; 93005; 93880; J1815; 99285-25

== ENCOUNTER 2018-04-26 15:08 | Inpatient (IN) | payer MEDICARE, OTHER ==
[~2018-04-26] VITALS: Ht 163.8 cm; Wt 83.5 kg
[2018-04-26] MEDS ORDERED: NON FORMULARY ITEM (Albuterol Sulfate (Albuterol Sulfate Neb Soln) 1 VIAL) NEB PRN (17:30)
[2018-04-26] MEDS ORDERED: DEXTROSE 50% 25 GM / 50ML DISP.SYRIN. IV PRN (17:30)
[2018-04-26] MEDS ORDERED: ALBUTEROL SULFATE 2.5 MG/3 ML NEBU. NEB PRN (17:45)
[2018-04-26 19:51] VITALS: BP 149/79
[2018-04-26] MEDS: amLODIPine BESYLATE 5 MG TABLET PO SCH (20:24)
[2018-04-26] MEDS: rOPINIRole 0.25 MG TABLET. PO SCH (20:24)
[2018-04-26] MEDS: traZODone 50 MG TABLET. PO SCH (20:24)
[2018-04-26] MEDS ORDERED: HEPARIN PF for SUB-Q USE 5,000 UNIT/0.5 ML VIAL. SQ SCH (22:00)
--- NOTE | 2018-04-26 22:58 | PN ---
DATE: 04/25/2018 SUBJECTIVE: The patient was seen on rounds evening of 04/25/2018. This note covers elements not covered in my initial note of 04/25/2018. 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 She denies any overt hallucinations, unable to reiterate again that the reason she mentioned she could sense her family members next to her, but not hallucinations, but rather to draw strength to cope with the family conflicts. REVIEW OF SYSTEMS: Ambulation impaired. No CV, , pulmonary, eye system symptoms on review. MENTAL STATUS EXAM: Reasonably oriented. Speech is coherent, abstraction fair, computation able to do two step serial 7's. No suicidal or homicidal ideation. LABORATORY DATA: Reviewed. IMPRESSION: Adjustment disorder with anxiety. Rest unchanged. PLAN: No change from initial note. MAN Jo-Ann CUEVA MD DR: MICHELE/deepak JOB#: [id number] / [id number]
[2018-04-27 06:46] VITALS: BP 148/66
[2018-04-27] MEDS: amLODIPine BESYLATE 5 MG TABLET PO SCH ×2 (08:41→21:04)
[2018-04-27] MEDS: INSULIN LISPRO 300 UNITS/3 ML INSULN.PEN. SQ SCH ×3 (08:47→17:00)
[2018-04-27] MEDS: ASPIRIN 81 MG TAB.CHEW PO SCH (08:51)
[2018-04-27] MEDS: MAGNESIUM OXIDE 400 MG TABLET PO SCH (08:51)
[2018-04-27] MEDS: PANTOPRAZOLE 40 MG TABLET. PO SCH (08:51)
[2018-04-27] MEDS: METOPROLOL TART IMMED RELEASE 25 MG TABLET PO SCH (08:52)
[2018-04-27] MEDS: GLIMEPIRIDE 2 MG TABLET PO SCH (08:52)
--- NOTE | 2018-04-27 14:38 | PDOC1 ---
History of Present Illness History of Present Illness Ms. Noriega is a 87 old female who presented to the emergency department complaining of dizziness a feeling as if she was spinning for the past 5 days. The symptoms were related to head position and movement, she had been scheduled to see an ear nose and throat surgeon the day prior but felt too sick to go. Sedimentation rate and CRP were found to be elevated however patient refused temporal artery biopsy. Labs revealed acute on chronic kidney injury and the patient was admitted for hydration, observation, and neurological evaluation. Her labs improved quickly with hydration and neurology determination for cause of dizziness was benign positional vertigo with contributions from patient's peripheral diabetic neuropathy. Once her condition was stabilized she had her family felt she would benefit from some PT and OT therefore she will be transferred to swing bed status. I find her to be resting comfortably denies any dizziness or other acute symptoms, no questions at this time. Allergies: Coded Allergies: Influenza Virus Vaccines (Verified Allergy, Intermediate, GENERALIZED BODY /JOINT ACHES, 12/09/17) Penicillins (Verified Allergy, Intermediate, NAUSEA/VOMITING, 10/20/17) amoxicillin (Verified Allergy, Intermediate, Nausea/Vomiting, 10/20/17) cephalexin (Verified Allergy, Intermediate, Nausea/Vomiting, 10/20/17) clavulanic acid (Verified Allergy, Intermediate, Nausea/Vomiting, 10/20/17) metoclopramide (Verified Allergy, Intermediate, NAUSEA/VOMITING, 10/20/17) Past Medical History Cardiac: AFIB, CAD, CHF, HTN, hyperipidemia, pulmonary hypertension, Other ( sick sinus syndrome, peripheral arterial disease) Pulmonary: Other (pulmonary hypertension) C[employer] ROLLS: CVA (with no permanent sequela, restless leg syndrome) GI: GERD Heme/Onc: Anemia NOS, Other (DVT) Musculoskeletal: Osteoarthritis Endocrine: Diabetes Past Surgical History: Pacemaker, Other (bilateral total knee arthroplasty) Past Social History Smoke: No Alcohol: none Drugs: None Lives: with Family (with her son she's able to get around using a walker) Review of Systems Review Of Systems Fourteen system , review of systems has been reviewed. See HPI for pertinent positives and negative responses, other robles all other systems are negative, non pertinent or non contributory Constitutional: No: Fever, Chills, Sweats ENT: No: Ear pain, Nose pain, Mouth pain Respiratory: No: Cough, Shortness of breath, Wheezing Cardiovascular: No: Chest Pain, Palpitations Gastrointestinal: No: Nausea, Vomiting, Abdominal Pain Musculoskeletal: YES: Joint Pain; No: Muscle Pain, Muscular Weakness SKIN: YES: Warm, Dry, No Rashes Neurological: YES: Dizziness; No: Confusion, Seizures Medications Current Medications Acetaminophen (Tylenol) 650 mg PRN Q6HRS PRN PO PAIN; Start 04/26/18 at 17:30 Metoprolol Tartrate (Lopressor) 12.5 mg DAILY PO Last administered on at 08:52; Start 04/27/18 at 09:00 Non-Formulary Medication (Albuterol Sulfate (Albuterol Sulfate Neb Soln)) 1 vial QID PRN NEB SHORTNESS OF AIR; Start 04/26/18 at 17:30; Status UNV Alprazolam (Xanax) 0.5 mg PRN TID PRN PO ANXIETY / AGITATION; Start 04/26/18 at 17:45 Amlodipine Besylate (Norvasc) 5 mg BID PO Last administered on 04/27/18at 08:41 ; Start 04/26/18 at 21:00 Aspirin (Children'S Aspirin) 81 mg DAILYWBKFT PO Last administered on at 08:51; Start 04/27/18 at 08:00 Vitamin D (Vitamin D3) 50,000 unit WEEKLY PO ; Start 05/03/18 at 09:00 Glimepiride (Amaryl) 4 mg DAILY PO Last administered on 04/27/18 08:52; Start 04/27/18 at 09:00 Magnesium Oxide (Magnesium Oxide) 400 mg DAILY PO Last administered on at 08:51; Start 04/27/18 at 09:00 Pantoprazole Sodium (Protonix) 40 mg DAILY PO Last administered on 04/27/18at 08 :51; Start 04/27/18 at 09:00 Ropinirole HCl (Requip) 0.25 mg HS PO Last administered on 04/26/18 20:24; Start 04/26/18 at 21:00 Trazodone HCl (Desyrel) 50 mg QHS PO Last administered on 04/26/18at 20:24; Start 04/26/18 at 21:00 Insulin Human Lispro (HumaLOG) 0-7 UNITS TIDWMEALS SQ Last administered on 9/25 /18at 12:26; Start 04/27/18 at 08:00 Dextrose 12.5 gm PRN Q15MIN PRN IV SEE COMMENTS; Start 04/26/18 at 17:30 Heparin Sodium (Porcine) (Heparin Sq) 5,000 unit Q8HRS SQ ; Start 04/26/18 at 22 :00 Albuterol Sulfate (Ventolin) 2.5 mg PRN QID PRN NEB SHORTNESS OF BREATH; Start 04/26/18 at 17:45 Active Scripts Active Reported Metoprolol Tartrate 25 Mg Tablet 0.5 Tab PO DAILY Furosemide 80 Mg Tablet 1 Tab PO DAILY Vitamin D2 (Ergocalciferol (Vitamin D2)) 50,000 Unit Capsule 1 Cap PO WEEKLY LAST DOSE GIVEN: DATE: TIME: NEXT DOSE DUE: DATE: TIME: Glimepiride 4 Mg Tablet 1 Tab PO DAILY LAST DOSE GIVEN: DATE: TIME: NEXT DOSE DUE: DATE: TIME: Trazodone Hcl 50 Mg Tablet 1 Tab PO QHS LAST DOSE GIVEN: DATE: TIME: NEXT DOSE DUE: DATE: TIME: Requip (Ropinirole Hcl) 0.5 Mg Tablet 0.5 Tab PO QHS LAST DOSE GIVEN: DATE: TIME: NEXT DOSE DUE: DATE: TIME: Protonix (Pantoprazole Sodium) 40 Mg Tablet.dr 1 Tab PO DAILY LAST DOSE GIVEN: DATE: TIME: NEXT DOSE DUE: DATE: TIME: Aspirin 81 Mg Tab.chew 81 Mg PO DAILY LAST DOSE GIVEN: DATE: TIME: NEXT DOSE DUE: DATE: TIME: Isosorbide Mononitrate Er (Isosorbide Mononitrate) 30 Mg Tab.er.24h 1 Tab PO BID LAST DOSE GIVEN: DATE: TIME: NEXT DOSE DUE: DATE: TIME: Amlodipine Besylate 5 Mg Tablet 1 Tab PO BID LAST DOSE GIVEN: DATE: TIME: NEXT DOSE DUE: DATE: TIME: Albuterol Sulfate Neb Soln (Albuterol Sulfate) 0.63 Mg/3 Ml Vial.neb 1 Vial NEB QID PRN LAST DOSE GIVEN: DATE: TIME: NEXT DOSE DUE: DATE: TIME: Tylenol (Acetaminophen) 325 Mg Tablet 2 Tab PO PRN Q6HRS PRN LAST DOSE GIVEN: DATE: TIME: NEXT DOSE DUE: DATE: TIME: Magnesium Oxide 400 Mg Tablet 1 Tab PO DAILY LAST DOSE GIVEN: DATE: TIME: NEXT DOSE DUE: DATE: TIME: NITROGLYCERIN SubLingual (Nitroglycerin) 0.4 Mg Tab.subl 0.4 Mg SL PRN Q5MIN PRN LAST DOSE GIVEN: DATE: TIME: NEXT DOSE DUE: DATE: TIME: Xanax (Alprazolam) 0.25 Mg Tablet 0.5 Mg PO PRN TID PRN LAST DOSE GIVEN: DATE: TIME: NEXT DOSE DUE: DATE: TIME: Exam Vital Signs Vital Signs Date Time Temp Pulse Resp B/P (MAP) Pulse Ox O2 Delivery O2 Flow Rate FiO2 04/27/18 08:52 71 148/66 04/27/18 08:00 Room Air 04/27/18 06:46 97.9 18 98 General Appearance: Alert, Oriented X3, No acute distress HEENT: Atraumatic, EOMI, Mucous membr. moist/pink Respiratory: Clear to auscultation, Normal air movement Heart: Normal S1, Normal S2, No murmurs Cardiac: AFIB, CAD, CHF, HTN, hyperipidemia, other (sick sinus syndrome, peripheral arterial disease) Abdominal: Soft, No tenderness Extremities: No clubbing, No cyanosis, Normal pulses Skin: No rashes, No breakdown Neuro: Normal speech, Cranial nerves 3-12 NL Psych/Mental Status: Mental status NL, Mood NL Assessment/Plan Assessment/Plan 87-year-old female with multiple comorbidities and recent hospitalization for vertigo and acute on chronic kidney injury. Her acute medical problems have been satisfactory dealt with and at this time patient and family feel she would benefit from some physical and occupational therapy prior to going home. We'll continue home medications and offer treatment as indicated. COURSE Allergies Coded Allergies Type Severity Reaction Last Updated Verified Influenza Virus Vaccines Allergy Intermediate GENERALIZED BODY/JOINT ACHES 12/09 Yes Penicillins Allergy Intermediate NAUSEA/VOMITING 10/20/17 Yes amoxicillin Allergy Intermediate Nausea/Vomiting 10/20/17 Yes cephalexin Allergy Intermediate Nausea/Vomiting 10/20/17 Yes clavulanic acid Allergy Intermediate Nausea/Vomiting 10/20/17 Yes metoclopramide Allergy Intermediate NAUSEA/VOMITING 10/20/17 Yes Laboratory Tests Test 04/27/18 07:07 Glucose (Fingerstick) 182 mg/dL (70-99) Current Medications Medications (Trade) Dose Ordered Sig/Ruel Route PRN Reason Start Time Stop Time Status Last Admin Dose Admin Acetaminophen (Tylenol) 650 mg PRN Q6HRS PRN PO PAIN 04/26/18 17:30 Metoprolol Tartrate (Lopressor) 12.5 mg DAILY PO 04/27/18 09:00 04/27/18 08:52 Non-Formulary Medication (Albuterol Sulfate (Albuterol Sulfate Neb Soln)) 1 vial QID PRN NEB SHORTNESS OF AIR 04/26/18 17:30 UNV Alprazolam (Xanax) 0.5 mg PRN TID PRN PO ANXIETY / AGITATION 04/26/18 17:45 Amlodipine Besylate (Norvasc) 5 mg BID PO 04/26/18 21:00 04/27/18 08:41 Aspirin (Children'S Aspirin) 81 mg DAILYWBKFT PO 04/27/18 08:00 04/27/18 08:51 Vitamin D (Vitamin D3) 50,000 unit WEEKLY PO 05/03/18 09:00 Glimepiride (Amaryl) 4 mg DAILY PO 04/27/18 09:00 04/27/18 08:52 Magnesium Oxide (Magnesium Oxide) 400 mg DAILY PO 04/27/18 09:00 04/27/18 08:51 Pantoprazole Sodium (Protonix) 40 mg DAILY PO 04/27/18 09:00 04/27/18 08:51 Ropinirole HCl (Requip) 0.25 mg HS PO 04/26/18 21:00 04/26/18 20:24 Trazodone HCl (Desyrel) 50 mg QHS PO 04/26/18 21:00 04/26/18 20:24 Insulin Human Lispro (HumaLOG) 0-7 UNITS TIDWMEALS SQ 04/27/18 08:00 04/27/18 12:26 Dextrose 12.5 gm PRN Q15MIN PRN IV SEE COMMENTS 04/26/18 17:30 Heparin Sodium (Porcine) (Heparin Sq) 5,000 unit Q8HRS SQ 04/26/18 22:00 Albuterol Sulfate (Ventolin) 2.5 mg PRN QID PRN NEB SHORTNESS OF BREATH 04/26/18 17:45 Orders Procedure Category Date Status Time Acetaminophen PHA 04/26/18 In Process (Tylenol) 17:30 Metoprolol Tart Immed PHA 04/27/18 In Process Release (Lopressor 09:00 Alprazolam (Xanax) PHA 04/26/18 In Process 17:45 Amlodipine Besylate PHA 04/26/18 In Process (Norvasc) 21:00 Aspirin (Children's PHA 04/27/18 In Process Aspirin) 08:00 Cholecalciferol PHA 05/03/18 In Process (Vitamin D3) (Vitamin 09:00 Glimepiride (Amaryl) PHA 04/27/18 In Process 09:00 Magnesium Oxide PHA 04/27/18 In Process (Magnesium Oxide) 09:00 Pantoprazole PHA 04/27/18 In Process (Protonix) 09:00 Ropinirole (Requip) PHA 04/26/18 In Process 21:00 Trazodone (Desyrel) PHA 04/26/18 In Process 21:00 Admit Orders ADT 04/26/18 Transmitted Glucose Poct Achs [facility] 04/26/18 In Process 17:18 Insulin Lispro PHA 04/27/18 In Process (Humalog) 08:00 Dextrose 50% PHA 04/26/18 In Process 17:30 Heparin Pf For Sub-Q PHA 04/26/18 In Process Use (Heparin Sq) 22:00 Vital Signs, Per NIRAV 04/26/18 In Process Protocol 17:20 Pt Eval And Treat PT 04/26/18 Complete 17:20 Ot Eval And Treat OT 04/26/18 Complete 17:20 [place] Diabetic DIET 04/26/18 Transmitted Assoc Diet Dinner Rehab Screening (Pt, REHAB 04/27/18 Complete Ot, St) 07:00 Albuterol Sulfate PHA 04/26/18 In Process (Ventolin) 17:45 Vital Signs Date Time Temp Pulse Resp B/P (MAP) Pulse Ox O2 Delivery O2 Flow Rate FiO2 04/27/18 08:52 71 148/66 04/27/18 08:00 Room Air 04/27/18 06:46 97.9 18 98 ANDREW DOLL DO Apr 27, 2018 14:38
[2018-04-27 18:32] VITALS: BP 146/78
[2018-04-27] MEDS: APIXABAN 2.5 MG TABLET PO SCH (21:00)
[2018-04-27] MEDS: rOPINIRole 0.25 MG TABLET. PO SCH (21:03)
[2018-04-27] MEDS: ALPRAZolam 0.5 MG TABLET PO PRN (21:03)
[2018-04-27] MEDS: traZODone 50 MG TABLET. PO SCH (21:03)
[2018-04-27] MEDS: ACETAMINOPHEN 325 MG TABLET PO PRN (21:06)
[2018-04-28 05:39] VITALS: BP 157/73
[2018-04-28] MEDS: GLIMEPIRIDE 2 MG TABLET PO SCH (08:33)
[2018-04-28] MEDS: PANTOPRAZOLE 40 MG TABLET. PO SCH (08:34)
[2018-04-28] MEDS: METOPROLOL TART IMMED RELEASE 25 MG TABLET PO SCH (08:34)
[2018-04-28] MEDS: MAGNESIUM OXIDE 400 MG TABLET PO SCH (08:34)
[2018-04-28] MEDS: ASPIRIN 81 MG TAB.CHEW PO SCH (08:35)
[2018-04-28] MEDS: APIXABAN 2.5 MG TABLET PO SCH ×2 (08:35→20:44)
[2018-04-28] MEDS: amLODIPine BESYLATE 5 MG TABLET PO SCH ×2 (08:35→20:45)
[2018-04-28] MEDS: INSULIN LISPRO 300 UNITS/3 ML INSULN.PEN. SQ SCH ×3 (08:43→17:48)
[2018-04-28] MEDS: ACETAMINOPHEN 325 MG TABLET PO PRN (11:27)
[2018-04-28 18:40] VITALS: BP 132/79
[2018-04-28] MEDS: rOPINIRole 0.25 MG TABLET. PO SCH (20:44)
[2018-04-28] MEDS: traZODone 50 MG TABLET. PO SCH (20:44)
[2018-04-28] MEDS: ALPRAZolam 0.5 MG TABLET PO PRN (20:44)
[2018-04-29 05:02] VITALS: BP 125/70
[2018-04-29] MEDS: PANTOPRAZOLE 40 MG TABLET. PO SCH (07:33)
[2018-04-29] MEDS: MAGNESIUM OXIDE 400 MG TABLET PO SCH (07:34)
[2018-04-29] MEDS: GLIMEPIRIDE 2 MG TABLET PO SCH (07:34)
[2018-04-29] MEDS: METOPROLOL TART IMMED RELEASE 25 MG TABLET PO SCH (07:34)
[2018-04-29] MEDS: amLODIPine BESYLATE 5 MG TABLET PO SCH ×2 (07:35→21:20)
[2018-04-29] MEDS: APIXABAN 2.5 MG TABLET PO SCH ×2 (07:35→21:20)
[2018-04-29] MEDS: ASPIRIN 81 MG TAB.CHEW PO SCH (07:35)
[2018-04-29] MEDS: INSULIN LISPRO 300 UNITS/3 ML INSULN.PEN. SQ SCH ×3 (07:48→16:48)
[2018-04-29] MEDS: ACETAMINOPHEN 325 MG TABLET PO PRN (11:04)
[2018-04-29 18:11] VITALS: BP 156/75
[2018-04-29] MEDS: traZODone 50 MG TABLET. PO SCH (21:20)
[2018-04-29] MEDS: rOPINIRole 0.25 MG TABLET. PO SCH (21:24)
[2018-04-30 06:30] VITALS: BP 128/66
[2018-04-30] MEDS: ASPIRIN 81 MG TAB.CHEW PO SCH (08:37)
[2018-04-30] MEDS: amLODIPine BESYLATE 5 MG TABLET PO SCH ×2 (08:38→20:09)
[2018-04-30] MEDS: MAGNESIUM OXIDE 400 MG TABLET PO SCH (08:38)
[2018-04-30] MEDS: APIXABAN 2.5 MG TABLET PO SCH ×2 (08:38→20:08)
[2018-04-30] MEDS: PANTOPRAZOLE 40 MG TABLET. PO SCH (08:38)
[2018-04-30] MEDS: GLIMEPIRIDE 2 MG TABLET PO SCH (08:38)
[2018-04-30] MEDS: ACETAMINOPHEN 325 MG TABLET PO PRN (08:39)
[2018-04-30] MEDS: METOPROLOL TART IMMED RELEASE 25 MG TABLET PO SCH (08:39)
[2018-04-30] MEDS: ALPRAZolam 0.5 MG TABLET PO PRN (08:45)
[2018-04-30] MEDS: INSULIN LISPRO 300 UNITS/3 ML INSULN.PEN. SQ SCH ×3 (08:45→17:35)
[2018-04-30 19:01] VITALS: BP 177/75
[2018-04-30] MEDS: traZODone 50 MG TABLET. PO SCH (20:09)
[2018-04-30] MEDS: rOPINIRole 0.25 MG TABLET. PO SCH (20:14)
[2018-05-01 05:37] VITALS: BP 122/57
[2018-05-01] MEDS: ASPIRIN 81 MG TAB.CHEW PO SCH (07:39)
[2018-05-01] MEDS: GLIMEPIRIDE 2 MG TABLET PO SCH (07:40)
[2018-05-01] MEDS: APIXABAN 2.5 MG TABLET PO SCH ×2 (07:40→20:20)
[2018-05-01] MEDS: METOPROLOL TART IMMED RELEASE 25 MG TABLET PO SCH (07:40)
[2018-05-01] MEDS: MAGNESIUM OXIDE 400 MG TABLET PO SCH (07:40)
[2018-05-01] MEDS: PANTOPRAZOLE 40 MG TABLET. PO SCH (07:40)
[2018-05-01] MEDS: amLODIPine BESYLATE 5 MG TABLET PO SCH ×2 (07:40→20:20)
[2018-05-01 07:42] VITALS: BP 144/76
[2018-05-01] MEDS: INSULIN LISPRO 300 UNITS/3 ML INSULN.PEN. SQ SCH ×3 (07:45→17:08)
[2018-05-01] MEDS: ACETAMINOPHEN 325 MG TABLET PO PRN (10:24)
[2018-05-01 18:32] VITALS: BP 149/80
[2018-05-01] MEDS: traZODone 50 MG TABLET. PO SCH (20:20)
[2018-05-01] MEDS: rOPINIRole 0.25 MG TABLET. PO SCH (20:20)
[2018-05-02 06:25] VITALS: BP 124/69
[2018-05-02] MEDS: GLIMEPIRIDE 2 MG TABLET PO SCH (09:38)
[2018-05-02] MEDS: ASPIRIN 81 MG TAB.CHEW PO SCH (09:38)
[2018-05-02] MEDS: MAGNESIUM OXIDE 400 MG TABLET PO SCH (09:38)
[2018-05-02] MEDS: METOPROLOL TART IMMED RELEASE 25 MG TABLET PO SCH (09:39)
[2018-05-02] MEDS: PANTOPRAZOLE 40 MG TABLET. PO SCH (09:39)
[2018-05-02] MEDS: amLODIPine BESYLATE 5 MG TABLET PO SCH ×2 (09:39→22:23)
[2018-05-02] MEDS: APIXABAN 2.5 MG TABLET PO SCH ×2 (09:39→22:23)
[2018-05-02] MEDS: INSULIN LISPRO 300 UNITS/3 ML INSULN.PEN. SQ SCH ×3 (09:44→17:00)
[2018-05-02 18:28] VITALS: BP 149/78
[2018-05-02] MEDS: rOPINIRole 0.25 MG TABLET. PO SCH (22:22)
[2018-05-02] MEDS: traZODone 50 MG TABLET. PO SCH (22:23)
[2018-05-03 06:21] VITALS: BP 149/76
[2018-05-03] MEDS: APIXABAN 2.5 MG TABLET PO SCH ×2 (08:33→20:56)
[2018-05-03] MEDS: GLIMEPIRIDE 2 MG TABLET PO SCH (08:33)
[2018-05-03] MEDS: ASPIRIN 81 MG TAB.CHEW PO SCH (08:33)
[2018-05-03] MEDS: amLODIPine BESYLATE 5 MG TABLET PO SCH ×2 (08:34→20:55)
[2018-05-03] MEDS: METOPROLOL TART IMMED RELEASE 25 MG TABLET PO SCH (08:34)
[2018-05-03] MEDS: MAGNESIUM OXIDE 400 MG TABLET PO SCH (08:34)
[2018-05-03] MEDS: PANTOPRAZOLE 40 MG TABLET. PO SCH (08:35)
[2018-05-03] MEDS: INSULIN LISPRO 300 UNITS/3 ML INSULN.PEN. SQ SCH ×3 (08:43→17:23)
[2018-05-03] MEDS ORDERED: CHOLECALCIFEROL (VITAMIN D3) 50,000 UNIT CAPSULE PO SCH (09:00)
[2018-05-03 18:25] VITALS: BP 145/78
[2018-05-03] MEDS: rOPINIRole 0.25 MG TABLET. PO SCH (20:55)
[2018-05-03] MEDS: traZODone 50 MG TABLET. PO SCH (20:55)
[2018-05-03] MEDS: ACETAMINOPHEN 325 MG TABLET PO PRN (23:21)
[2018-05-04] MEDS: INSULIN LISPRO 300 UNITS/3 ML INSULN.PEN. SQ SCH (07:41)
[2018-05-04] MEDS: APIXABAN 2.5 MG TABLET PO SCH (08:21)
[2018-05-04] MEDS: GLIMEPIRIDE 2 MG TABLET PO SCH (08:21)
[2018-05-04] MEDS: ASPIRIN 81 MG TAB.CHEW PO SCH (08:21)
[2018-05-04] MEDS: MAGNESIUM OXIDE 400 MG TABLET PO SCH (08:23)
[2018-05-04] MEDS: METOPROLOL TART IMMED RELEASE 25 MG TABLET PO SCH (08:23)
[2018-05-04] MEDS: PANTOPRAZOLE 40 MG TABLET. PO SCH (08:24)
[2018-05-04] MEDS: amLODIPine BESYLATE 5 MG TABLET PO SCH (08:24)
[2018-05-04 11:09] VITALS: BP 148/78
--- NOTE | 2018-05-04 14:28 | DS ---
DATE OF DISCHARGE: 05/04/2018 HOSPITAL COURSE: The patient is an 87-year-old -Citizen Of [place] female patient, who was admitted to a swing bed. She was transferred from [facility] where she was admitted complaining of dizziness, feeling as if she was spinning around for the past 5 days prior to admission. Symptoms were related to head position and movement. She had been scheduled to see an ear, nose and throat surgeon the day prior to admission, but felt too sick to go. Her sedimentation rate and CRP found to be elevated; however, the patient refused temporal artery biopsy. Labs revealed acute on chronic kidney injury and the patient was admitted for hydration, observation, and neurological evaluation. Her labs improved quickly with hydration. Neurology determined the cause of dizziness was benign positional vertigo with contribution from the patient's peripheral diabetic neuropathy. Once her condition has stabilized, she was transferred to swing bed to continue physical and occupational therapy. She did actually very well. She has been up and about walking with a walker. She has had no further episode of problem with dizziness, continued to have some headache and the patient felt that she is ready to go home. We offered to discharge her with home health, but she said that one of her family members are always be there with her and she feels safe to go home without the home health. PHYSICAL EXAMINATION: GENERAL: When I saw her this morning, she was sitting comfortably in her chair, in no apparent respiratory distress. No pallor, jaundice, cyanosis, or thyromegaly. No jugular venous distension. No lower limb edema. VITAL SIGNS: Her heart rate was 76, blood pressure 145/78, temperature was 98.2, respiratory rate 20, and oxygen saturation was 100%. HEAD, EYES, EARS, NOSE AND THROAT: Showed normocephalic, atraumatic. NECK: Supple. HEART: Showed normal first and second heart sounds with no gallop, rub, or murmur. CHEST: Clear to auscultation. No crepitation or rhonchi. ABDOMEN: Distended, soft, nontender. No guarding or rigidity. No organomegaly. All hernial orifice intact. Bowel sounds normal. NEUROLOGIC: She was awake, alert, responding appropriately. All cranial nerves intact. EXTREMITIES: She moves extremities without difficulty. She ambulates with a walker without assistance. LABORATORY DATA: Her most recent lab work showed her blood sugar seems to be reasonably controlled. DISCHARGE MEDICATIONS: She was discharged home to continue on following medications: Acetaminophen 650 mg every 6 hours, albuterol sulfate 1 vial by nebulizer 4 times a day, alprazolam for Xanax 0.5 mg 3 times a day as needed, amlodipine 5 mg twice a day, aspirin 81 mg once a day, ergocalciferol, vitamin D3 50,000 unit 1 capsule p.o. weekly, furosemide 80 mg once a day, glimepiride 4 mg daily, isosorbide mononitrate 30 mg twice a day, magnesium oxide 400 mg daily, metoprolol tartrate 25 mg half a tablet daily, nitroglycerin 0.4 mg sublingually every 5 minutes x 3, Protonix 40 mg once a day, Requip 0.5 mg at bedtime and trazodone 50 mg p.o. at bedtime. FINAL DISCHARGE DIAGNOSES: 1. Benign paroxysmal positional vertigo. 2. Chronic headache. 3. Atrial fibrillation, rate controlled. 4. Coronary artery disease. 5. Diastolic congestive heart failure. 6. Hypertension. 7. Hyperlipidemia. 8. Pulmonary hypertension. 9. Sick sinus syndrome. 10. Peripheral vascular disease. JAMES MULTANI MD DR: ESTEPHANIA/deepak JOB#: [id number] / [id number]
== END 2018-05-04 11:46 | disposition home health service (06) | DRG 683 ==
LOC: LND 16:42
PROVIDERS: ADMIT Neuromusculoskeletal Medicine & OMM; ATTEND Neuromusculoskeletal Medicine & OMM
DX: N17.9 Acute kidney failure, unspecified (principal); I13.0 Hypertensive heart and chronic kidney disease with heart failure and stage 1 through stage 4 chronic kidney disease, or unspecified chronic kidney disease; I50.30 Unspecified diastolic (congestive) heart failure; H81.10 Benign paroxysmal vertigo, unspecified ear; E11.22 Type 2 diabetes mellitus with diabetic chronic kidney disease; E11.42 Type 2 diabetes mellitus with diabetic polyneuropathy; E11.51 Type 2 diabetes mellitus with diabetic peripheral angiopathy without gangrene; E78.5 Hyperlipidemia, unspecified; F43.22 Adjustment disorder with anxiety; I25.10 Atherosclerotic heart disease of native coronary artery without angina pectoris; I27.20 Pulmonary hypertension, unspecified; I48.91 Unspecified atrial fibrillation; I49.5 Sick sinus syndrome; K21.9 Gastro-esophageal reflux disease without esophagitis; Z96.653 Presence of artificial knee joint, bilateral; M19.90 Unspecified osteoarthritis, unspecified site; R51 Headache; N18.9 Chronic kidney disease, unspecified; Z86.73 Personal history of transient ischemic attack (TIA), and cerebral infarction without residual deficits; Z88.1 Allergy status to other antibiotic agents; Z88.0 Allergy status to penicillin; Z88.8 Allergy status to other drugs, medicaments and biological substances; Z86.718 Personal history of other venous thrombosis and embolism; Z79.899 Other long term (current) drug therapy; Z79.84 Long term (current) use of oral hypoglycemic drugs
CPT/HCPCS: 82947; 97110; 97116; 97530; 97535

== ENCOUNTER 2018-06-02 16:38 | Inpatient (IN) | payer MEDICARE, OTHER ==
[~2018-06-02] VITALS: Ht 162.6 cm; Wt 83.6 kg
[2018-06-02 17:14] LABS: BASO % 0 % (0-3); EOS # 0.1 x10^3/uL (0.0-0.7); EOS % 2 % (0-3); HEMATOCRIT 34.4 % (36.0-47.0); HEMOGLOBIN 11.2 g/dL (12.0-15.5); LYMPH # 1.8 x10^3/uL (1.0-4.8); LYMPH % 26 % (24-48); MEAN CORPUSCULAR HEMOGLOBIN 28 pg (25-35); MEAN CORPUSCULAR HGB CONC 33 g/dL (31-37); MEAN CORPUSCULAR VOLUME 87 fL (79-100); MONO # 0.4 x10^3/uL (0.0-1.1); MONO % 6 % (0-9); NEUT # 4.5 x10^3uL (1.8-7.7); NEUT % 66 % (31-73); PLATELET COUNT 159 x10^3/uL (140-400); RED BLOOD COUNT 3.97 x10^6/uL (3.50-5.40); RED CELL DISTRIBUTION WIDTH 15.6 % (11.5-14.5); WHITE BLOOD COUNT 6.8 x10^3/uL (4.0-11.0)
--- NOTE | 2018-06-02 17:16 | RAD ---
Examination: PORTABLE CHEST 1V History: Chest pain, epigastric pain Comparison/Correlation: None Findings: Portable upright frontal view of the chest was obtained. Triple lead left-sided pacemaker is present. Heart size normal. No infiltrate or pleural effusion. No pneumothorax. Bony structures are unremarkable for the patient's age. Postoperative cervical spine fusion noted. Impression: No active disease. Electronically signed by: Elvin Cuevas MD (06/02/2018 5:14 PM) [facility]
[2018-06-02 17:32] LABS: ALBUMIN/GLOBULIN RATIO 1.1 (1.0-1.7); CREATININE 2.4 mg/dL (0.6-1.0); GFR 23.1; POTASSIUM 4.1 mmol/L (3.5-5.1); TOTAL BILIRUBIN 0.2 mg/dL (0.2-1.0); TOTAL PROTEIN 7.6 g/dL (6.4-8.2)
--- NOTE | 2018-06-02 17:37 | EKG ---
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
--- NOTE | 2018-06-02 17:47 | PHYS DOC ---
Past History Past Medical History: A-Fib, CAD, CHF, Diabetes, Heart Disease, Hip Fracture, Hypertension, Pneumonia, UTI Past Surgical History: Appendectomy, Cholecystectomy, Hip Replacement, Knee Replacement, Pacemaker Smoking: Non-smoker Alcohol Use: None Drug Use: None Adult General Chief Complaint Chief Complaint: CHEST PAIN HPI HPI Patient is a 87 year old female who presents with lower chest discomfort feeling and pressure pain since this morning that getting better with nitroglycerin 2. Patient denies radiation of pain in complaining of nausea without fever and chills. Patient had multiple cardiac risk factors including diabetes mellitus, coronary artery disease, dyslipidemia and hypertension. Patient denies pain at this time. Review of Systems Review of Systems Constitutional: Denies fever or chills [] Eyes: Denies change in visual acuity, redness, or eye pain [] HENT: Denies nasal congestion or sore throat [] Respiratory: Denies cough or shortness of breath [] Cardiovascular: No additional information not addressed in HPI [] GI: Denies abdominal pain, vomiting, bloody stools or diarrhea [] : Denies dysuria or hematuria [] Musculoskeletal: Denies back pain or joint pain [] Integument: Denies rash or skin lesions [] Neurologic: Denies headache, focal weakness or sensory changes [] Endocrine: Denies polyuria or polydipsia [] All other systems were reviewed and found to be within normal limits, except as documented in this note. Allergies Allergies Allergies Coded Allergies Type Severity Reaction Last Updated Verified Influenza Virus Vaccines Allergy Intermediate GENERALIZED BODY/JOINT ACHES 12/09 Yes Penicillins Allergy Intermediate NAUSEA/VOMITING 10/20/17 Yes amoxicillin Allergy Intermediate Nausea/Vomiting 10/20/17 Yes cephalexin Allergy Intermediate Nausea/Vomiting 10/20/17 Yes clavulanic acid Allergy Intermediate Nausea/Vomiting 10/20/17 Yes metoclopramide Allergy Intermediate NAUSEA/VOMITING 10/20/17 Yes Physical Exam Physical Exam Constitutional: Well developed, well nourished, no acute distress, non-toxic appearance. [] HENT: Normocephalic, atraumatic, oropharynx moist, no oral exudates, nose normal. [] Eyes: PERRLA, EOMI, conjunctiva normal, no discharge. [] Neck: Normal range of motion, no tenderness, supple, no stridor. [] Cardiovascular:Heart rate regular rhythm, no murmur [] Lungs & Thorax: Bilateral breath sounds clear to auscultation [] Abdomen: Bowel sounds normal, soft, no tenderness, no masses, no pulsatile masses. [] Skin: Warm, dry, no erythema, no rash. [] Back: No tenderness, no CVA tenderness. [] Extremities: No tenderness, no cyanosis, no clubbing, ROM intact, no edema. [] Neurologic: Alert and oriented X 3, normal motor function, normal sensory function, no focal deficits noted. [] Psychologic: Affect normal, judgement normal, mood normal. [] Current Patient Data Vital Signs Vital Signs Date Time Temp Pulse Resp B/P (MAP) Pulse Ox O2 Delivery O2 Flow Rate FiO2 06/02/18 16:48 98.0 72 18 98 Room Air Lab Results Laboratory Tests Test 06/02/18 16:58 White Blood Count 6.8 x10^3/uL (4.0-11.0) Red Blood Count 3.97 x10^6/uL (3.50-5.40) Hemoglobin 11.2 g/dL (12.0-15.5) L Hematocrit 34.4 % (36.0-47.0) L Mean Corpuscular Volume 87 fL (79-100) Mean Corpuscular Hemoglobin 28 pg (25-35) Mean Corpuscular Hemoglobin Concent 33 g/dL (31-37) Red Cell Distribution Width 15.6 % (11.5-14.5) H Platelet Count 159 x10^3/uL (140-400) Neutrophils (%) (Auto) 66 % (31-73) Lymphocytes (%) (Auto) 26 % (24-48) Monocytes (%) (Auto) 6 % (0-9) Eosinophils (%) (Auto) 2 % (0-3) Basophils (%) (Auto) 0 % (0-3) Neutrophils # (Auto) 4.5 x10^3uL (1.8-7.7) Lymphocytes # (Auto) 1.8 x10^3/uL (1.0-4.8) Monocytes # (Auto) 0.4 x10^3/uL (0.0-1.1) Eosinophils # (Auto) 0.1 x10^3/uL (0.0-0.7) Basophils # (Auto) 0.0 x10^3/uL (0.0-0.2) Sodium Level 136 mmol/L (136-145) Potassium Level 4.1 mmol/L (3.5-5.1) Chloride Level 99 mmol/L (98-107) Carbon Dioxide Level 29 mmol/L (21-32) Anion Gap 8 (6-14) Blood Urea Nitrogen 32 mg/dL (7-20) H Creatinine 2.4 mg/dL (0.6-1.0) H Estimated GFR (Cockcroft-Gault) 23.1 BUN/Creatinine Ratio 13 (6-20) Glucose Level 254 mg/dL (70-99) H Calcium Level 9.0 mg/dL (8.5-10.1) Total Bilirubin 0.2 mg/dL (0.2-1.0) Aspartate Amino Transferase (AST) 18 U/L (15-37) Alanine Aminotransferase (ALT) 20 U/L (14-59) Alkaline Phosphatase 56 U/L (46-116) Creatine Kinase 95 U/L (26-192) Troponin I Quantitative < 0.017 ng/mL (0-0.055) AF-Gtq-T-Type Natriuretic Peptide 2786 pg/mL (0-449) H Total Protein 7.6 g/dL (6.4-8.2) Albumin 4.0 g/dL (3.4-5.0) Albumin/Globulin Ratio 1.1 (1.0-1.7) Lipase 69 U/L (73-393) L EKG EKG EKG interpreted by me. EKG at 1647 showed irregular heart rhythm without P waves , abnormal left axis deviation, nonspecific intraventricular block, poor R-wave progress in anterior leads, acute ST and T-wave abnormalities. Radiology/Procedures Radiology/Procedures [address] [address] IMAGING REPORT Signed PATIENT: CARINA TREADWELL ACCOUNT: [id number] : 1930 LOCATION: ER AGE: 87 SEX: F EXAM STATUS: REG ER ORD. PHYSICIAN: BRENDA DOMÍNGUEZ MD REASON: chest pain PROCEDURE: PORTABLE CHEST 1V Examination: PORTABLE CHEST 1V History: Chest pain, epigastric pain Comparison/Correlation: None Findings: Portable upright frontal view of the chest was obtained. Triple lead left-sided pacemaker is present. Heart size normal. No infiltrate or pleural effusion. No pneumothorax. Bony structures are unremarkable for the patient's age. Postoperative cervical spine fusion noted. Impression: No active disease. Electronically signed by: Elvin Domingo MD (06/02/2018 5:14 PM) [facility] DICTATED AND SIGNED BY: ELVIN DOMINGO MD DATE: 06/02/18 1717 CC: BRENDA DOMÍNGUEZ MD; PATRICIA COOPER MD ~ Course & Med Decision Making Course & Med Decision Making Pertinent Labs and Imaging studies reviewed. (See chart for details) Evaluation of patient in ER showed 87-year-old female patient with complaining of chest pain resolved after nitroglycerin times to taking at home. Patient had multiple cardiac risk factors. Cardiac enzyme was unremarkable but patient had elevation of BNP .Dr Lynn Accepted admission at 1736. Dragon Disclaimer Dragon Disclaimer This electronic medical record was generated, in whole or in part, using a voice recognition dictation system. Departure Departure: Impression: Primary Impression: Acute chest pain Additional Impressions: CHF (congestive heart failure) Chronic renal insufficiency Uncontrolled diabetes mellitus Disposition: ADMITTED INPATIENT (at 1739) Admitting Physician: Jess Lynn (accepted admission at 1736) Condition: IMPROVED Referrals: PATRICIA COOPER MD (PCP) Problem Qualifiers BRENDA DOMÍNGUEZ MD Jun 02, 2018 17:47
--- NOTE | 2018-06-02 18:02 | RAD ---
Examination: ABDOMEN LTD History: DX: epigastric pain IMP: Op fabricio years ago-pt obese limited study; right renal cyst Comparison/Correlation: 04/13/2017 CT chest, abdomen, and pelvis without contrast exam Findings: Fatty infiltration of the liver is present. Liver length is 17.74 cm. Common bile duct measures 0.5 cm diameter. Cholecystectomy evident. Right kidney measures 8.5 cm x 4.6 CM x 3.6 cm. Cyst at the superior aspect of the right kidney is present measuring 2.2 cm x 1.18 x 1.7 cm with internal echoes. This appears to correspond with 04/13/2017 CT chest, abdomen, and pelvis without contrast exam. Pancreas is obscured by bowel gas. Inferior vena cava is unremarkable. Portal venous flow is normal. Impression: Fatty infiltration of the liver. No suspicious process. Electronically signed by: Elvin Cuevas MD (06/02/2018 5:59 PM) [facility]
[2018-06-02 18:40] VITALS: BP 146/78
[2018-06-02] MEDS ORDERED: NITROGLYCERIN SUBLINGUAL 0.4 MG BOTTLE OF 25. SL PRN (20:00)
[2018-06-02] MEDS ORDERED: NON FORMULARY ITEM (Albuterol Sulfate (Albuterol Sulfate Neb Soln) 1 VIAL) NEB PRN (20:00)
[2018-06-02] MEDS ORDERED: ALPRAZolam 0.5 MG TABLET PO PRN (20:15)
[2018-06-02 20:18] LABS: CLARITY,URINE HAZY; COLOR,URINE YELLOW
[2018-06-02 20:19] LABS: BILIRUBIN,URINE NEG (NEG); GLUCOSE,URINE NEG (NEG); NITRITE,URINE NEG (NEG); RBC,URINE RARE /HPF (0-2); UROBILINOGEN,URINE 0.2 mg/dL (0.2 mg/dL)
[2018-06-02 20:20] LABS: BACTERIA,URINE FEW /HPF (0-FEW); SQUAMOUS EPITHELIAL CELL,UR FEW /LPF
[2018-06-02] MEDS ORDERED: ALBUTEROL SULFATE 2.5 MG/3 ML NEBU. NEB PRN (20:45)
[2018-06-02] MEDS: traZODone 50 MG TABLET. PO SCH (21:39)
[2018-06-02] MEDS: amLODIPine BESYLATE 5 MG TABLET PO SCH (21:40)
[2018-06-02] MEDS: rOPINIRole 0.5 MG TABLET. PO SCH (21:40)
[2018-06-02 22:35] VITALS: BP 127/70
[2018-06-03 06:00] VITALS: BP 131/74
[2018-06-03] MEDS: ASPIRIN 81 MG TAB.CHEW PO SCH (08:27)
[2018-06-03] MEDS: GLIMEPIRIDE 2 MG TABLET PO SCH (08:27)
[2018-06-03] MEDS: ISOSORBIDE MONONITRATE ER 30 MG TAB.ER.24H PO SCH (08:27)
[2018-06-03] MEDS: FUROSEMIDE 40 MG TABLET PO SCH (08:27)
[2018-06-03] MEDS: PANTOPRAZOLE 40 MG TABLET. PO SCH (08:28)
[2018-06-03] MEDS: amLODIPine BESYLATE 5 MG TABLET PO SCH ×2 (08:28→20:53)
[2018-06-03] MEDS: METOPROLOL TART IMMED RELEASE 25 MG TABLET PO SCH (08:29)
[2018-06-03] MEDS: MAGNESIUM OXIDE 400 MG TABLET PO SCH (08:30)
[2018-06-03] MEDS: ACETAMINOPHEN 325 MG TABLET PO PRN ×2 (09:10→20:52)
--- NOTE | 2018-06-03 09:55 | PDOC2 ---
CONSULT Date of Admission DATE: 06/03/18 TIME: 09:55 Problem List Problems Medical Problems: (1) Acute chest pain Status: Acute (2) CHF (congestive heart failure) Status: Acute (3) Chronic renal insufficiency Status: Acute (4) Uncontrolled diabetes mellitus Status: Acute History of Present Illness Ms Noriega is a pleasant 87-year-old female who normally follows with Dr Dunn for her cardiac care. She presented with a chief complaint of left lower chest discomfort. She currently reports complaints of head ache and chest pain radiating down left side that feels like needles. She denies any increase with exertion, deep inspiration or movement. She does say she has been taking NTG for her symptoms and believes this helps. She is having a difficult time articulating how often she takes NTG but it appears to be several times weekly. She denies any associated symtptoms of dyspnea, diaphoresis, nausea or vomiting. She denies any congestive symptoms though she does have a history of chronic diastolic heart failure. She deneis palpitations, lightheadedness or syncope. She would like to go home later today. Past Medical History Echo 01/04/18 The left ventricular systolic function is normal and the ejection fraction is within normal range. The Ejection Fraction is 60%. Transmitral Doppler flow pattern is Grade II-pseudonormal filling dynamics. The right ventricular systolic function is normal. There is a pacemaker lead in the right ventricle. Doppler and Color Flow revealed mild aortic regurgitation. Doppler and Color Flow revealed moderate tricuspid regurgitation. There is moderate to severe pulmonary hypertension. The PA pressure was estimated at 73 mmHg. There is no evidence of significant pericardial effusion. PAST MEDICAL HISTORY: 1. Coronary artery disease with prior unstable angina and stenting last year. Recent MPI without significant abnormalities. 2. Essential hypertension. 3. Hypercholesterolemia. 4. Paroxysmal atrial fibrillation. 5. Chronic diastolic congestive heart failure. 6. Pulmonary hypertension, mild. 7. Chronic anemia. 8. Arthritis. 9. Previous history of deep venous thrombosis. 10. Type 2 diabetes mellitus. 11. Gastroesophageal reflux disease. 12. Bilateral knee replacements. 13. Permanent pacemaker implantation. 14. History of peripheral arterial disease. 15. History of a stroke with no residual deficits. 16. Sick sinus syndrome. Past Surgical History 1. Status post permanent pacemaker implantation. 2. Status post knee replacements. Family History She does not know of any family history of premature coronary artery disease. Social History She lives at home with her son. She does not smoke or drink alcohol. Current Medications Current Medications Acetaminophen (Tylenol) 650 mg PRN Q6HRS PRN PO PAIN Last administered on at 09:10; Start 06/02/18 at 20:00 Isosorbide Mononitrate (Imdur) 60 mg DAILY PO Last administered on 06/03/18at 08 :27; Start 06/03/18 at 09:00 Metoprolol Tartrate (Lopressor) 12.5 mg DAILY PO Last administered on at 08:29; Start 06/03/18 at 09:00 Nitroglycerin (Nitrostat) 0.4 mg PRN Q5MIN PRN SL CHEST PAIN; Start 06/02/18 at 20:00 Non-Formulary Medication (Albuterol Sulfate (Albuterol Sulfate Neb Soln)) 1 vial QID PRN NEB SHORTNESS OF AIR; Start 06/02/18 at 20:00; Stop 06/02/18 at 20:43; Status DC Alprazolam (Xanax) 0.5 mg PRN TID PRN PO ANXIETY / AGITATION; Start 06/02/18 at 20:15 Amlodipine Besylate (Norvasc) 5 mg BID PO Last administered on 06/03/18at 08:28 ; Start 06/02/18 at 21:00 Aspirin (Children'S Aspirin) 81 mg DAILYWBKFT PO Last administered on at 08:27; Start 06/03/18 at 08:00 Vitamin D (Vitamin D3) 50,000 unit WEEKLY PO ; Start 06/09/18 at 09:00 Furosemide (Lasix) 80 mg DAILY PO Last administered on 06/03/18at 08:27; Start 06/03/18 at 09:00 Glimepiride (Amaryl) 4 mg DAILY PO Last administered on 06/03/18at 08:27; Start 06/03/18 at 09:00 Magnesium Oxide (Magnesium Oxide) 400 mg DAILY PO Last administered on at 08:30; Start 06/03/18 at 09:00 Pantoprazole Sodium (Protonix) 40 mg DAILYAC PO Last administered on 06/03/18at 08:28; Start 06/03/18 at 07:30 Ropinirole HCl (Requip) 0.5 mg QHS PO Last administered on 06/02/18at 21:40; Start 06/02/18 at 21:00 Trazodone HCl (Desyrel) 50 mg QHS PO Last administered on 06/02/18at 21:39; Start 06/02/18 at 21:00 Albuterol Sulfate (Ventolin) 2.5 mg PRN Q4HRS PRN NEB SHORTNESS OF BREATH; Start 06/02/18 at 20:45 Active Scripts Active Reported Metoprolol Tartrate 25 Mg Tablet 0.5 Tab PO DAILY LAST DOSE GIVEN: DATE:TODAY TIME:MORNING NEXT DOSE DUE: DATE:TOMORROW TIME:MORNING Furosemide 80 Mg Tablet 1 Tab PO DAILY NOT GIVEN TODAY NEXT DOSE DUE: DATE:TOMORR TIME:MORNING Vitamin D2 (Ergocalciferol (Vitamin D2)) 50,000 Unit Capsule 1 Cap PO WEEKLY LAST DOSE GIVEN: DATE: TIME: NEXT DOSE DUE: DATE: TIME: Glimepiride 4 Mg Tablet 1 Tab PO DAILY LAST DOSE GIVEN: DATE: TIME: NEXT DOSE DUE: DATE: TIME: Trazodone Hcl 50 Mg Tablet 1 Tab PO QHS LAST DOSE GIVEN: DATE: TIME: NEXT DOSE DUE: DATE: TIME: Requip (Ropinirole Hcl) 0.5 Mg Tablet 0.5 Tab PO QHS LAST DOSE GIVEN: DATE: TIME: NEXT DOSE DUE: DATE: TIME: Protonix (Pantoprazole Sodium) 40 Mg Tablet.dr 1 Tab PO DAILY LAST DOSE GIVEN: DATE: TIME: NEXT DOSE DUE: DATE: TIME: Aspirin 81 Mg Tab.chew 81 Mg PO DAILY LAST DOSE GIVEN: DATE: TIME: NEXT DOSE DUE: DATE: TIME: Isosorbide Mononitrate Er (Isosorbide Mononitrate) 30 Mg Tab.er.24h 1 Tab PO BID LAST DOSE GIVEN: DATE: TIME: NEXT DOSE DUE: DATE: TIME: Amlodipine Besylate 5 Mg Tablet 1 Tab PO BID LAST DOSE GIVEN: DATE: TIME: NEXT DOSE DUE: DATE: TIME: Albuterol Sulfate Neb Soln (Albuterol Sulfate) 0.63 Mg/3 Ml Vial.neb 1 Vial NEB QID PRN LAST DOSE GIVEN: DATE: TIME: NEXT DOSE DUE: DATE: TIME: Tylenol (Acetaminophen) 325 Mg Tablet 2 Tab PO PRN Q6HRS PRN LAST DOSE GIVEN: DATE: TIME: NEXT DOSE DUE: DATE: TIME: Magnesium Oxide 400 Mg Tablet 1 Tab PO DAILY LAST DOSE GIVEN: DATE: TIME: NEXT DOSE DUE: DATE: TIME: NITROGLYCERIN SubLingual (Nitroglycerin) 0.4 Mg Tab.subl 0.4 Mg SL PRN Q5MIN PRN LAST DOSE GIVEN: DATE: TIME: NEXT DOSE DUE: DATE: TIME: Xanax (Alprazolam) 0.25 Mg Tablet 0.5 Mg PO PRN TID PRN LAST DOSE GIVEN: DATE: TIME: NEXT DOSE DUE: DATE: TIME: Allergies: Coded Allergies: Influenza Virus Vaccines (Verified Allergy, Intermediate, GENERALIZED BODY /JOINT ACHES, 12/09/17) Penicillins (Verified Allergy, Intermediate, NAUSEA/VOMITING, 10/20/17) amoxicillin (Verified Allergy, Intermediate, Nausea/Vomiting, 10/20/17) cephalexin (Verified Allergy, Intermediate, Nausea/Vomiting, 10/20/17) clavulanic acid (Verified Allergy, Intermediate, Nausea/Vomiting, 10/20/17) metoclopramide (Verified Allergy, Intermediate, NAUSEA/VOMITING, 10/20/17) Review of System as per HPI or negative General: Alert, Oriented X3, Cooperative, No acute distress HEENT: Atraumatic, Mucous membr. moist/pink, Other (no JVD/HJR) Lungs: Clear to auscultation Heart: Normal S1, Normal S2, Other (no gallops, clicks or rubs) Abdomen: Normal bowel sounds, Soft, No tenderness Extremities: No cyanosis, Other (trace edema) Neuro: Normal speech, Strength at 5/5 X4 ext Psych/Mental Status: Mood NL VITALS Vital Signs Date Time Temp Pulse Resp B/P (MAP) Pulse Ox O2 Delivery O2 Flow Rate FiO2 06/03/18 08:29 73 131/74 06/03/18 07:39 Room Air 06/03/18 06:00 97.9 18 98 Labs Laboratory Tests Test 06/02/18 16:58 06/02/18 19:48 06/02/18 20:03 06/02/18 20:50 White Blood Count 6.8 x10^3/uL (4.0-11.0) Red Blood Count 3.97 x10^6/uL (3.50-5.40) Hemoglobin 11.2 g/dL (12.0-15.5) Hematocrit 34.4 % (36.0-47.0) Mean Corpuscular Volume 87 fL (79-100) Mean Corpuscular Hemoglobin 28 pg (25-35) Mean Corpuscular Hemoglobin Concent 33 g/dL (31-37) Red Cell Distribution Width 15.6 % (11.5-14.5) Platelet Count 159 x10^3/uL (140-400) Neutrophils (%) (Auto) 66 % (31-73) Lymphocytes (%) (Auto) 26 % (24-48) Monocytes (%) (Auto) 6 % (0-9) Eosinophils (%) (Auto) 2 % (0-3) Basophils (%) (Auto) 0 % (0-3) Neutrophils # (Auto) 4.5 x10^3uL (1.8-7.7) Lymphocytes # (Auto) 1.8 x10^3/uL (1.0-4.8) Monocytes # (Auto) 0.4 x10^3/uL (0.0-1.1) Eosinophils # (Auto) 0.1 x10^3/uL (0.0-0.7) Basophils # (Auto) 0.0 x10^3/uL (0.0-0.2) Sodium Level 136 mmol/L (136-145) Potassium Level 4.1 mmol/L (3.5-5.1) Chloride Level 99 mmol/L (98-107) Carbon Dioxide Level 29 mmol/L (21-32) Anion Gap 8 (6-14) Blood Urea Nitrogen 32 mg/dL (7-20) Creatinine 2.4 mg/dL (0.6-1.0) Estimated GFR (Cockcroft-Gault) 23.1 BUN/Creatinine Ratio 13 (6-20) Glucose Level 254 mg/dL (70-99) Calcium Level 9.0 mg/dL (8.5-10.1) Total Bilirubin 0.2 mg/dL (0.2-1.0) Aspartate Amino Transf (AST/SGOT) 18 U/L (15-37) Alanine Aminotransferase (ALT/SGPT) 20 U/L (14-59) Alkaline Phosphatase 56 U/L (46-116) Creatine Kinase 95 U/L (26-192) Troponin I Quantitative < 0.017 ng/mL (0-0.055) < 0.017 ng/mL (0-0.055) VN-Paa-E-Type Natriuretic Peptide 2786 pg/mL (0-449) Total Protein 7.6 g/dL (6.4-8.2) Albumin 4.0 g/dL (3.4-5.0) Albumin/Globulin Ratio 1.1 (1.0-1.7) Lipase 69 U/L (73-393) Urine Collection Type Void Urine Color Yellow Urine Clarity Hazy Urine pH 6.0 Urine Specific [place] 1.010 Urine Protein Neg (NEG-TRACE) Urine Glucose (UA) Neg mg/dL (NEG) Urine Ketones (Stick) Neg mg/dL (NEG) Urine Blood Neg (NEG) Urine Nitrite Neg (NEG) Urine Bilirubin Neg (NEG) Urine Urobilinogen Dipstick 0.2 mg/dL (0.2 mg/dL) Urine Leukocyte Esterase Small (NEG) Urine RBC Rare /HPF (0-2) Urine WBC 11-20 /HPF (0-4) Urine Squamous Epithelial Cells Few /LPF Urine Transitional Epithelial Cells Occ /LPF Urine Bacteria Few /HPF (0-FEW) Glucose (Fingerstick) 150 mg/dL (70-99) Test 06/02/18 23:40 06/03/18 07:33 Troponin I Quantitative < 0.017 ng/mL (0-0.055) Glucose (Fingerstick) 109 mg/dL (70-99) Images CXR - no active disease EKG - v paced Assessment/Plan 1. Atypical chest pain, no acute EKG changes, Trop remains negative. She has had a recent negative stress test per her primary cement tester assistant (Dr Dunn) and recent cath with one stent. As she is pain free at this time and without significant abnormalities we will defer further ischemic workup to her Primary cement tester assistant who will call her to set up appointment. 2. chronic diastolic heart failure - clinically compensated at the current time. Continue current medical mgmt. 3. SSS s/p PPM - function appears to be appropriate. defer mgmt to primary cement tester assistant. 4. HTNHD - pressure controlled. continue medical Rx. 5. PHTN 6. paroxysmal atrial fibrillation - currently 100% V paced. OAC for stroke prophylaxis and metoprolol for rate control. 7. Hyperlipidemia - repeat lipids outpatient and adjust medications as directed. No further testing from CV standpoint at this time. Discussed case with primary cement tester assistant, Dr Dunn, and she will follow up with him in the next few days for medication adjustment. NEELAM VALENCIA APRN Jun 03, 2018 09:55
[2018-06-03 10:29] VITALS: BP 122/67
--- NOTE | 2018-06-03 14:24 | HP ---
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 She denied any radiation of the pain, denied any nausea or vomiting, denied any shortness of breath or diaphoresis. She was extensively investigated in the Emergency Room. Her EKG showed that regular heart rhythm without P waves, abnormal left axis deviation, nonspecific intraventricular block, poor R-wave progression in anterior leads without any acute ST-T changes. Her chest x-ray showed no active disease and her first set of cardiac enzyme was normal at less than 0.017 and she was admitted to do 2 more sets of cardiac enzyme and consult the Cardiology team. PAST MEDICAL HISTORY: Significant for coronary artery disease with recent unstable angina, essential hypertension, hypercholesterolemia, paroxysmal atrial fibrillation, chronic diastolic congestive heart failure, and pulmonary hypertension. She also has chronic anemia, generalized osteoarthritis, previous history of deep vein thrombosis, type 2 diabetes mellitus and gastroesophageal reflux disease, peripheral arterial disease, history of stroke with no residual effect and sick sinus syndrome. PAST SURGICAL HISTORY: Significant for permanent pacemaker placement as well as bilateral knee arthroplasty. FAMILY HISTORY: Unremarkable. SOCIAL HISTORY: She lives at home with her son. She does not smoke, drink alcohol or use recreational drugs. She ambulates with a walker. PHYSICAL EXAMINATION: GENERAL: On arrival to the Emergency Room, she looked well and was clearly in no apparent respiratory distress, slightly pale, and no jaundice, cyanosis or thyromegaly. No jugular venous distension. No limb edema. VITAL SIGNS: Her heart rate was 72, blood pressure was 121/60, temperature was 98, respiratory rate was 18 and oxygen saturation was 98% on room air. HEAD, EYES, EARS, NOSE AND THROAT: Normocephalic, atraumatic. NECK: Supple. HEART: Showed normal first and second heart sounds. No gallop, rub or murmur. CHEST: Clear to auscultation. No crepitation or rhonchi. ABDOMEN: Distended, soft, nontender. No guarding or rigidity. No organomegaly. All hernial orifice intact. Bowel sounds normal. NEUROLOGIC: She was awake, alert, responding appropriately. Cranial nerves intact. She moves extremities without difficulty. She ambulates with a walker. LABORATORY DATA: Her lab work on arrival showed a white cell count of 6800, hemoglobin 11, hematocrit 34, MCV 87 and platelet count of 159,000 with normal manual differential. Her chemistry showed a serum sodium 136, potassium 4.1, chloride 99, bicarbonate 29, anion gap of 8, BUN 32, creatinine 2.4, estimated GFR was 23 mL per minute. Her glucose was 254 and calcium was 9. Total bilirubin, AST, ALT, alkaline phosphatase were normal. Her beta natriuretic peptide was 2786. First set of cardiac enzymes showed troponin to be less than 0.017. Her total protein was 7.6, albumin 4 and lipase was 69. Urinalysis was essentially unremarkable and showed the urine was yellow, hazy with a pH of 6, specific gravity of 1.010. The urine was negative for protein, glucose, ketones, blood, nitrite, bilirubin, and small amount of leukocyte esterase. There are rare RBCs, 11-20 wbc's, very few bacteria. Her abdominal ultrasound showed there is fatty infiltration of the liver present. Liver length is 17.74 cm, common bile duct measures 0.5 cm and her gallbladder is absent surgically, right kidney measures 8.5 x 4.6 x 3.6. She has a cyst at the superior aspect of the right kidney that is measured about 2.0 cm x 1.1 x 1.7 cm with internal echoes. This appears to correspond to CT scan of the chest, abdomen and pelvis without contrast exam. Pancreas is obscured by bowel gas, inferior vena cava unremarkable, portal venous flow is normal. The patient will be admitted to do 2 more sets of cardiac enzyme. MEDICATIONS: We will continue with all her medications that include albuterol sulfate 0.63 mg per 3 mL by nebulizer 4 times a day, isosorbide mononitrate 30 mg twice a day. She is nitroglycerin 0.4 mg every 5 minutes x 3 as needed; metoprolol tartrate 25 mg, she takes half a tablet twice a day; amlodipine besylate 5 mg twice a day, aspirin 81 mg once a day, Tylenol 650 mg every 6 hours, trazodone 50 mg at bedtime, alprazolam 0.5 mg 3 times a day as needed for anxiety, Requip 0.5 mg at bedtime, furosemide 80 mg daily and magnesium oxide 400 mg once a day. She is on Protonix 40 mg daily, glimepiride 4 mg daily, and ergocalciferol 50,000 international unit once a week. DICTATION ENDS HERE JAMES MULTANI MD DR: ESTEPHANIA/deepak JOB#: [id number] / [id number]
[2018-06-03 14:26] VITALS: BP 121/68
[2018-06-03 18:49] VITALS: BP 126/73
[2018-06-03] MEDS: traZODone 50 MG TABLET. PO SCH (20:52)
[2018-06-03] MEDS: rOPINIRole 0.5 MG TABLET. PO SCH (20:52)
[2018-06-03 22:22] VITALS: BP 122/73
--- NOTE | 2018-06-03 23:23 | PN ---
DATE: 06/03/2018 SUBJECTIVE: The patient is sitting comfortably in her chair, in no apparent distress. She said that she has not had no further episode of chest pain and she did have 2 more sets of cardiac enzymes that ruled out myocardial infarction. Her serum lipase was normal. Her liver enzymes are all within normal range and ultrasound showed no evidence of biliary obstruction. Talking to her daughter, she apparently is very tearful and depressed. She lost her independence and now she has to rely on her children. She has to sell her house and she is known to have anxiety for which she takes alprazolam and after a lengthy discussion with the patient and her daughter and our nursing staff, a decision was made to consult Dr. Aggarwal for treatment of her depression. Other than that, the patient was hemodynamically stable. PHYSICAL EXAMINATION: VITAL SIGNS: Her heart rate was 70, blood pressure was 127/70, temperature was 98, respiratory rate was 18 and oxygen saturation was 98%. HEAD, EYES, EARS, NOSE AND THROAT: Showed normocephalic, atraumatic. NECK: Supple. HEART: Showed normal first and second heart sounds with no gallop, rub or murmur. CHEST: Clear to auscultation. No crepitation or rhonchi. ABDOMEN: Distended, soft, nontender. No guarding or rigidity. No organomegaly. All hernial orifices are intact. Bowel sounds normal. NEUROLOGIC: She was awake, alert, responding appropriately. All cranial nerves are intact. She moves extremities without difficulty. She ambulates with a walker. LABORATORY DATA: Her lab work showed that she has 2 more sets of cardiac enzymes that rule out myocardial infarction. ASSESSMENT AND PLAN: Chest pain, myocardial infarction, ruled out. She has severe anxiety and depression. Other medical problems include type 2 diabetes, hypertension, sick sinus syndrome, status post permanent pacemaker. She also has what seems to be chronic benign positional vertigo, paroxysmal atrial fibrillation, chronic diastolic congestive heart failure, seems to be well compensated, also has chronic anemia, generalized osteoarthritis. JAMES MULTANI MD DR: ESTEPHANIA/deepak JOB#: [id number] / [id number]
[2018-06-04 05:10] VITALS: BP 133/68
[2018-06-04] MEDS: ISOSORBIDE MONONITRATE ER 30 MG TAB.ER.24H PO SCH (09:49)
[2018-06-04] MEDS: amLODIPine BESYLATE 5 MG TABLET PO SCH (09:49)
[2018-06-04] MEDS: MAGNESIUM OXIDE 400 MG TABLET PO SCH (09:49)
[2018-06-04] MEDS: PANTOPRAZOLE 40 MG TABLET. PO SCH (09:49)
[2018-06-04] MEDS: GLIMEPIRIDE 2 MG TABLET PO SCH (09:50)
[2018-06-04] MEDS: METOPROLOL TART IMMED RELEASE 25 MG TABLET PO SCH (09:50)
[2018-06-04] MEDS: ASPIRIN 81 MG TAB.CHEW PO SCH (09:52)
[2018-06-04] MEDS: FUROSEMIDE 40 MG TABLET PO SCH (09:53)
[2018-06-04] MEDS ORDERED: FUROSEMIDE 40 MG TABLET PO SCH (10:00)
[2018-06-04 11:07] VITALS: BP 118/75
--- NOTE | 2018-06-04 11:28 | PDOC ---
PROGRESS NOTES Diagnosis Problem Problems Medical Problems: (1) Acute chest pain Status: Acute (2) CHF (congestive heart failure) Status: Acute (3) Chronic renal insufficiency Status: Acute (4) Uncontrolled diabetes mellitus Status: Acute Assessment Problems Medical Problems: (1) Acute chest pain Status: Acute (2) CHF (congestive heart failure) Status: Acute (3) Chronic renal insufficiency Status: Acute (4) Uncontrolled diabetes mellitus Status: Acute 1. Atypical chest pain, no acute EKG changes, Trop remains negative. She has had a recent negative stress test per her primary cold storage supervisor (Dr Dunn) and recent cath with one stent. Currently pain free. Defer further ischemic workup to her Primary cold storage supervisor who will call her to set up appointment. 2. chronic diastolic heart failure - clinically compensated at the current time. Continue current medical mgmt. 3. SSS s/p PPM - function appears to be appropriate. defer mgmt to primary cold storage supervisor. 4. HTNHD - pressure controlled. continue medical Rx. 5. PHTN 6. paroxysmal atrial fibrillation - currently 100% V paced. OAC for stroke prophylaxis and metoprolol for rate control. 7. Hyperlipidemia - repeat lipids outpatient and adjust medications as directed. Continue current mgmt. No further testing from CV standpoint at this time. Discussed case with primary cold storage supervisor, Dr Dunn, and she will follow up with him in the next few days for medication adjustment. Subjective feeling much better, no chest pain, no dyspnea "ready to go home" Objective Vital Signs Date Time Temp Pulse Resp B/P (MAP) Pulse Ox O2 Delivery O2 Flow Rate FiO2 06/04/18 11:07 97.6 73 18 118/75 (89) 91 Room Air Intake and Output 06/04/18 07:00 Intake Total 980 ml Output Total 400 ml Balance 580 ml Intake Oral 980 ml Output Urine Total 400 ml # Voids 4 # Bowel Movements 1 Abdomen: Normal bowel sounds, Soft Heart: Normal S1, Normal S2 Extremities: No cyanosis, Normal pulses General: Alert, Oriented X3, Cooperative, No acute distress HEENT: Atraumatic, EOMI Lungs: Clear to auscultation Neuro: Normal speech, Strength at 5/5 X4 ext Psych/Mental Status: Mental status NL, Mood NL Review of Relevant I have reviewed the following items alisha (where applicable) has been applied. Labs Laboratory Tests Test 06/02/18 16:58 06/02/18 19:48 06/02/18 20:03 06/02/18 20:50 White Blood Count 6.8 x10^3/uL (4.0-11.0) Red Blood Count 3.97 x10^6/uL (3.50-5.40) Hemoglobin 11.2 g/dL (12.0-15.5) Hematocrit 34.4 % (36.0-47.0) Mean Corpuscular Volume 87 fL (79-100) Mean Corpuscular Hemoglobin 28 pg (25-35) Mean Corpuscular Hemoglobin Concent 33 g/dL (31-37) Red Cell Distribution Width 15.6 % (11.5-14.5) Platelet Count 159 x10^3/uL (140-400) Neutrophils (%) (Auto) 66 % (31-73) Lymphocytes (%) (Auto) 26 % (24-48) Monocytes (%) (Auto) 6 % (0-9) Eosinophils (%) (Auto) 2 % (0-3) Basophils (%) (Auto) 0 % (0-3) Neutrophils # (Auto) 4.5 x10^3uL (1.8-7.7) Lymphocytes # (Auto) 1.8 x10^3/uL (1.0-4.8) Monocytes # (Auto) 0.4 x10^3/uL (0.0-1.1) Eosinophils # (Auto) 0.1 x10^3/uL (0.0-0.7) Basophils # (Auto) 0.0 x10^3/uL (0.0-0.2) Sodium Level 136 mmol/L (136-145) Potassium Level 4.1 mmol/L (3.5-5.1) Chloride Level 99 mmol/L (98-107) Carbon Dioxide Level 29 mmol/L (21-32) Anion Gap 8 (6-14) Blood Urea Nitrogen 32 mg/dL (7-20) Creatinine 2.4 mg/dL (0.6-1.0) Estimated GFR (Cockcroft-Gault) 23.1 BUN/Creatinine Ratio 13 (6-20) Glucose Level 254 mg/dL (70-99) Calcium Level 9.0 mg/dL (8.5-10.1) Total Bilirubin 0.2 mg/dL (0.2-1.0) Aspartate Amino Transf (AST/SGOT) 18 U/L (15-37) Alanine Aminotransferase (ALT/SGPT) 20 U/L (14-59) Alkaline Phosphatase 56 U/L (46-116) Creatine Kinase 95 U/L (26-192) Troponin I Quantitative < 0.017 ng/mL (0-0.055) < 0.017 ng/mL (0-0.055) UW-Lnb-U-Type Natriuretic Peptide 2786 pg/mL (0-449) Total Protein 7.6 g/dL (6.4-8.2) Albumin 4.0 g/dL (3.4-5.0) Albumin/Globulin Ratio 1.1 (1.0-1.7) Lipase 69 U/L (73-393) Urine Collection Type Void Urine Color Yellow Urine Clarity Hazy Urine pH 6.0 Urine Specific [place] 1.010 Urine Protein Neg (NEG-TRACE) Urine Glucose (UA) Neg mg/dL (NEG) Urine Ketones (Stick) Neg mg/dL (NEG) Urine Blood Neg (NEG) Urine Nitrite Neg (NEG) Urine Bilirubin Neg (NEG) Urine Urobilinogen Dipstick 0.2 mg/dL (0.2 mg/dL) Urine Leukocyte Esterase Small (NEG) Urine RBC Rare /HPF (0-2) Urine WBC 11-20 /HPF (0-4) Urine Squamous Epithelial Cells Few /LPF Urine Transitional Epithelial Cells Occ /LPF Urine Bacteria Few /HPF (0-FEW) Glucose (Fingerstick) 150 mg/dL (70-99) Test 06/02/18 23:40 06/03/18 07:33 06/03/18 11:24 06/03/18 16:25 Troponin I Quantitative < 0.017 ng/mL (0-0.055) Glucose (Fingerstick) 109 mg/dL (70-99) 263 mg/dL (70-99) 202 mg/dL (70-99) Test 06/03/18 19:40 06/04/18 08:03 Glucose (Fingerstick) 205 mg/dL (70-99) 112 mg/dL (70-99) Medications Current Medications Acetaminophen (Tylenol) 650 mg PRN Q6HRS PRN PO PAIN Last administered on at 20:52; Start 06/02/18 at 20:00 Isosorbide Mononitrate (Imdur) 60 mg DAILY PO Last administered on 06/04/18at 09 :49; Start 06/03/18 at 09:00 Metoprolol Tartrate (Lopressor) 12.5 mg DAILY PO Last administered on at 09:50; Start 06/03/18 at 09:00 Nitroglycerin (Nitrostat) 0.4 mg PRN Q5MIN PRN SL CHEST PAIN; Start 06/02/18 at 20:00 Non-Formulary Medication (Albuterol Sulfate (Albuterol Sulfate Neb Soln)) 1 vial QID PRN NEB SHORTNESS OF AIR; Start 06/02/18 at 20:00; Stop 06/02/18 at 20:43; Status DC Alprazolam (Xanax) 0.5 mg PRN TID PRN PO ANXIETY / AGITATION; Start 06/02/18 at 20:15 Amlodipine Besylate (Norvasc) 5 mg BID PO Last administered on 06/04/18at 09:49 ; Start 06/02/18 at 21:00 Aspirin (Children'S Aspirin) 81 mg DAILYWBKFT PO Last administered on at 09:52; Start 06/03/18 at 08:00 Vitamin D (Vitamin D3) 50,000 unit WEEKLY PO ; Start 06/09/18 at 09:00 Furosemide (Lasix) 80 mg DAILY PO Last administered on 06/03/18at 08:27; Start 06/03/18 at 09:00; Stop 06/04/18 at 09:54; Status DC Glimepiride (Amaryl) 4 mg DAILY PO Last administered on 06/04/18at 09:50; Start 06/03/18 at 09:00 Magnesium Oxide (Magnesium Oxide) 400 mg DAILY PO Last administered on at 09:49; Start 06/03/18 at 09:00 Pantoprazole Sodium (Protonix) 40 mg DAILYAC PO Last administered on 06/04/18at 09:49; Start 06/03/18 at 07:30 Ropinirole HCl (Requip) 0.5 mg QHS PO Last administered on 06/03/18at 20:52; Start 06/02/18 at 21:00 Trazodone HCl (Desyrel) 50 mg QHS PO Last administered on 06/03/18at 20:52; Start 06/02/18 at 21:00 Albuterol Sulfate (Ventolin) 2.5 mg PRN Q4HRS PRN NEB SHORTNESS OF BREATH; Start 06/02/18 at 20:45 Furosemide (Lasix) 40 mg DAILY PO Last administered on 06/04/18at 10:43; Start 06/04/18 at 10:00 Duloxetine HCl (Cymbalta) 30 mg DAILY PO ; Start 06/05/18 at 09:00 Active Scripts Active Reported Metoprolol Tartrate 25 Mg Tablet 0.5 Tab PO DAILY LAST DOSE GIVEN: DATE:TODAY TIME:MORNING NEXT DOSE DUE: DATE:TOMORROW TIME:MORNING Furosemide 80 Mg Tablet 1 Tab PO DAILY NOT GIVEN TODAY NEXT DOSE DUE: DATE:TOMORROW TIME:MORNING Vitamin D2 (Ergocalciferol (Vitamin D2)) 50,000 Unit Capsule 1 Cap PO WEEKLY LAST DOSE GIVEN: DATE: TIME: NEXT DOSE DUE: DATE: TIME: Glimepiride 4 Mg Tablet 1 Tab PO DAILY LAST DOSE GIVEN: DATE: TIME: NEXT DOSE DUE: DATE: TIME: Trazodone Hcl 50 Mg Tablet 1 Tab PO QHS LAST DOSE GIVEN: DATE: TIME: NEXT DOSE DUE: DATE: TIME: Requip (Ropinirole Hcl) 0.5 Mg Tablet 0.5 Tab PO QHS LAST DOSE GIVEN: DATE: TIME: NEXT DOSE DUE: DATE: TIME: Protonix (Pantoprazole Sodium) 40 Mg Tablet.dr 1 Tab PO DAILY LAST DOSE GIVEN: DATE: TIME: NEXT DOSE DUE: DATE: TIME: Aspirin 81 Mg Tab.chew 81 Mg PO DAILY LAST DOSE GIVEN: DATE: TIME: NEXT DOSE DUE: DATE: TIME: Isosorbide Mononitrate Er (Isosorbide Mononitrate) 30 Mg Tab.er.24h 1 Tab PO BID LAST DOSE GIVEN: DATE: TIME: NEXT DOSE DUE: DATE: TIME: Amlodipine Besylate 5 Mg Tablet 1 Tab PO BID LAST DOSE GIVEN: DATE: TIME: NEXT DOSE DUE: DATE: TIME: Albuterol Sulfate Neb Soln (Albuterol Sulfate) 0.63 Mg/3 Ml Vial.neb 1 Vial NEB QID PRN LAST DOSE GIVEN: DATE: TIME: NEXT DOSE DUE: DATE: TIME: Tylenol (Acetaminophen) 325 Mg Tablet 2 Tab PO PRN Q6HRS PRN LAST DOSE GIVEN: DATE: TIME: NEXT DOSE DUE: DATE: TIME: Magnesium Oxide 400 Mg Tablet 1 Tab PO DAILY LAST DOSE GIVEN: DATE: TIME: NEXT DOSE DUE: DATE: TIME: NITROGLYCERIN SubLingual (Nitroglycerin) 0.4 Mg Tab.subl 0.4 Mg SL PRN Q5MIN PRN LAST DOSE GIVEN: DATE: TIME: NEXT DOSE DUE: DATE: TIME: Xanax (Alprazolam) 0.25 Mg Tablet 0.5 Mg PO PRN TID PRN LAST DOSE GIVEN: DATE: TIME: NEXT DOSE DUE: DATE: TIME: Vitals/I & O Vital Sign - Last 24 Hours 06/03/18 06/03/18 06/03/18 06/03/18 14:26 18:49 20:00 20:53 Temp 97.9 97.9 Pulse 74 73 73 Resp 20 20 B/P (MAP) 121/68 (85) 126/73 (90) 126/73 Pulse Ox 99 100 O2 Delivery Room Air Room Air Room Air 06/03/18 06/04/18 06/04/18 06/04/18 22:22 05:10 08:45 09:49 Temp 97.9 97.9 Pulse 76 74 74 Resp 18 18 B/P (MAP) 122/73 (89) 133/68 (89) 133/68 Pulse Ox 99 97 O2 Delivery Room Air Room Air Room Air 06/04/18 06/04/18 06/04/18 09:49 09:50 11:07 Temp 97.6 Pulse 74 74 73 Resp 18 B/P (MAP) 133/68 133/68 118/75 (89) Pulse Ox 91 O2 Delivery Room Air Intake and Output 06/03/18 06/03/18 06/04/18 15:00 23:00 07:00 Intake Total 660 ml 320 ml 0 ml Output Total 400 ml Balance 660 ml 320 ml -400 ml NEELAM [facility] [employer] TE[employer]ER Jun 04, 2018 11:28
--- NOTE | 2018-06-04 13:33 | DS ---
DATE OF DISCHARGE: 06/04/2018 HOSPITAL COURSE: The patient was admitted with complaint of recurrent epigastric and lower chest pain. She has had 3 sets of cardiac enzymes that were negative. She was evaluated by the Cardiology team and basically the patient has had multiple negative stress test per her primary mineral wool insulation supervisor, Dr. Dunn recent catheterization with 1 stent. She is today is pain free and the Cardiology team did not recommend any further ischemic workup. She was supposed to see Dr. Dunn today and she will call him to make another appointment. She has chronic stable diastolic heart failure, pulmonary hypertension, paroxysmal atrial fibrillation, and hyperlipidemia, all stable. She was seen by Dr. Aggarwal, who started her on Cymbalta and a decision was made to discharge her home with the cut down her Lasix to 40 mg once a day, continue with Cymbalta and Xanax for both depression and anxiety. PHYSICAL EXAMINATION: GENERAL: When I examined her this afternoon, she was sitting comfortably in her chair in no apparent respiratory distress. She was pale, but no jaundice, cyanosis, or thyromegaly. No jugular venous distension. No lower limb edema. VITAL SIGNS: Her heart rate was 73, blood pressure 118/75, temperature was 97.6, respiratory rate was 18 and oxygen saturation was 91% on room air. HEAD, EYES, EARS, NOSE AND THROAT: Normocephalic, atraumatic. NECK: Supple. CARDIAC: Normal first and second heart sounds. No gallop, rub or murmur. CHEST: Clear to auscultation. No crepitation or rhonchi. ABDOMEN: Distended, soft, nontender. NEUROLOGIC: She is awake, alert, responding appropriately. All cranial nerves intact. She moves extremities without difficulty. She ambulates with a walker. Her intake over the last 24 hours was 600, output was 1600. LABORATORY DATA: Her most recent lab work available showed her blood sugar is reasonably controlled. She has 3 sets of cardiac enzymes that were negative. Her white cell count was 6800, hemoglobin 11.2, hematocrit 34, MCV 87 and platelet count of 159,000. Her BUN was 32, creatinine 2.4. DISCHARGE MEDICATIONS: She was discharged to continue on following medications: Tylenol 650 mg every 6 hours, albuterol sulfate by nebulizer 4 times a day, alprazolam 0.5 mg 3 times a day for anxiety, amlodipine 5 mg twice a day, aspirin 81 mg once a day, ergocalciferol for vitamin D2 50,000 international unit once a week, glimepiride 4 mg daily, isosorbide mononitrate 30 mg twice a day, magnesium oxide 400 mg once a day, metoprolol tartrate 0.5 mg daily, nitroglycerin 0.4 mg sublingually every 5 minutes, Protonix 40 mg once a day, Requip 0.5 mg p.o. at bedtime and trazodone 50 mg at bedtime. She will be also on Cymbalta 30 mg once a day as well as Lasix 40 mg once a day. FINAL DISCHARGE DIAGNOSES: Atypical chest pain, myocardial infarction ruled out. The patient was recently seen by her Cardiology team and has had ischemic workup, stable compensated diastolic congestive heart failure, chronic renal insufficiency, stable, type 2 diabetes mellitus, atrial fibrillation, rate controlled, well anticoagulated, hyperlipidemia, sick sinus syndrome, status post permanent pacemaker placement, depression and anxiety. JAMES MULTANI MD DR: ESTEPHANIA/deepak JOB#: [id number] / [id number]
--- NOTE | 2018-06-04 21:29 | CONS ---
DATE OF CONSULTATION: 06/03/2018 This is a late entry, 06/03/2018, covers the elements not covered in my initial note. SUMMARY: I met with the patient evening of 06/03/2018, and her granddaughter was visiting her. I discussed with the nursing staff, reviewed the chart. IDENTIFYING DATA: The patient is an 88-year-old -[place] female referred by Dr. Lynn to evaluate her for her depression after she has been admitted once again with somatic complaints and left-sided chest pain within the context of a negative stress test and a negative cardiac catheterization study in the past. The question has been whether some of this is somatic symptoms from her mood, anxiety. Per nursing report, she has had episodes of crying, getting sad, depressed though she tends to minimize. CHIEF COMPLAINT: "Maybe, I have been depressed." HISTORY OF PRESENT ILLNESS: The patient lives with her son and has done so for the past 8 years. She states her son had invited her to live with him after she was unable to live on her own. She states there are family conflicts between her sons and this makes it very difficult for her. She does get depressed, anxious, somewhat withdrawn with tearfulness. No clear psychotic symptoms, suicidal or homicidal ideation. She has also had increasing anxiety. No symptoms of bipolar disorder. PAST PSYCHIATRIC HISTORY: As above. PAST MEDICAL HISTORY: The patient was admitted with lower chest discomfort described as pressure since the finance effectiveness manager of 06/02/2018. She feels it got a little better with nitroglycerin x 2. She denied any other ancillary symptoms. She was investigated in the ER. EKG unremarkable. Nonspecific intraventricular block. Chest x-ray was noncontributory. Cardiac enzymes unremarkable, but she was admitted for followup on cardiac enzymes. She does have a history of coronary artery disease with recent unstable angina, hypertension, hypercholesterolemia, paroxysmal atrial fibrillation, chronic diastolic heart failure, and pulmonary hypertension. She also has chronic anemia, osteoarthritis, history of DVT, type 2 diabetes mellitus, GERD, peripheral arterial disease, history of CVA with no residual effect, and sick sinus syndrome. Code status, full code. DRUG ALLERGIES: To INFLUENZA VACCINE, PENICILLIN, AMOXIL, CEPHALEXIN, CLAVULANIC ACID, and METOCLOPRAMIDE. CURRENT PSYCHOTROPICS: Trazodone 50 mg at bedtime, Xanax 0.5 mg t.i.d. p.r.n. anxiety. PAST SURGICAL HISTORY: Placement of permanent pacemaker, bilateral knee arthroplasty. FAMILY HISTORY: Unremarkable. SOCIAL HISTORY: The patient lives at home with her son. No alcohol or drug abuse. She ambulates with a walker. MENTAL STATUS EXAMINATION: The patient was seen individually evening of 06/03/2018. She is reasonably oriented, remembered me from the prior visit. Speech is coherent. Thought processes, goal directed. Mood is somewhat dysphoric, anxious. Affect is mood congruent. No psychotic symptoms, suicidal or homicidal ideation. Intellect average. Insight good. Judgment intact. IMPRESSION: Adjustment disorder with depressed mood and anxiety versus major depressive disorder; anxiety disorder, unspecified. Rest as above. PLAN: From a psychiatric standpoint. I am unable to explain all her cardiac and chest pain symptoms on her mood disorder, specifically since the chest pain did get better with nitroglycerin. Nevertheless, she does appear somewhat depressed, anxious, is willing for a trial on antidepressants, and would probably benefit from the addition of Cymbalta 30 mg a day if no contraindication per Dr. Lynn from a medical standpoint. I would leave everything unchanged for now. I have discussed this with the patient. Dr. Lynn, thank you for the opportunity to participate in your patient's care. We will follow with you. ANAM CUEVA MD DR: MICHELE/deepak JOB#: [id number] / [id number]
[2018-06-05] MEDS ORDERED: DULoxetine HCL 30 MG CAPSULE.DR PO SCH (09:00)
[2018-06-09] MEDS ORDERED: CHOLECALCIFEROL (VITAMIN D3) 50,000 UNIT CAPSULE PO SCH (09:00)
== END 2018-06-04 12:38 | disposition home or self-care (01) | DRG 313 ==
LOC: ER 16:38 → 1 SOUTH 19:21
PROVIDERS: ADMIT Internal Medicine; ATTEND Internal Medicine
DX: R07.89 Other chest pain (principal); I13.0 Hypertensive heart and chronic kidney disease with heart failure and stage 1 through stage 4 chronic kidney disease, or unspecified chronic kidney disease; I50.32 Chronic diastolic (congestive) heart failure; D64.9 Anemia, unspecified; E11.22 Type 2 diabetes mellitus with diabetic chronic kidney disease; E11.51 Type 2 diabetes mellitus with diabetic peripheral angiopathy without gangrene; E11.65 Type 2 diabetes mellitus with hyperglycemia; E78.00 Pure hypercholesterolemia, unspecified; E78.5 Hyperlipidemia, unspecified; F32.9 Major depressive disorder, single episode, unspecified; F41.9 Anxiety disorder, unspecified; H81.10 Benign paroxysmal vertigo, unspecified ear; I07.1 Rheumatic tricuspid insufficiency; I25.10 Atherosclerotic heart disease of native coronary artery without angina pectoris; I27.20 Pulmonary hypertension, unspecified; I35.1 Nonrheumatic aortic (valve) insufficiency; I48.0 Paroxysmal atrial fibrillation; Z96.649 Presence of unspecified artificial hip joint; Z96.653 Presence of artificial knee joint, bilateral; K21.9 Gastro-esophageal reflux disease without esophagitis; M15.9 Polyosteoarthritis, unspecified; N18.9 Chronic kidney disease, unspecified; Z63.9 Problem related to primary support group, unspecified; Z86.718 Personal history of other venous thrombosis and embolism; Z86.73 Personal history of transient ischemic attack (TIA), and cerebral infarction without residual deficits; Z90.49 Acquired absence of other specified parts of digestive tract; Z95.0 Presence of cardiac pacemaker; Z87.440 Personal history of urinary (tract) infections; Z88.6 Allergy status to analgesic agent; Z88.1 Allergy status to other antibiotic agents; Z88.0 Allergy status to penicillin; Z88.7 Allergy status to serum and vaccine; Z88.8 Allergy status to other drugs, medicaments and biological substances
CPT/HCPCS: 36415; 71045; 76705; 80053; 81001; 82550; 82947; 83690; 83880; 84484; 85025; 87086; 93005; 97530

== ENCOUNTER 2018-07-01 17:11 | Emergency (ER) | payer MEDICARE, OTHER ==
[~2018-07-01] VITALS: Ht 162.6 cm; Wt 86.2 kg
[~2018-07-01 17:11] MED LIST changes: +HYDR-2155 PO; -HYDR-2758 PO; -LOSA50TA7 PO; +LOSA50TA86 PO
--- NOTE | 2018-07-01 17:28 | PHYS DOC ---
Past History Past Medical History: A-Fib, CAD, CHF, Diabetes, Heart Disease, Hip Fracture, Hypertension, Pneumonia, UTI Past Surgical History: Appendectomy, Cholecystectomy, Hip Replacement, Knee Replacement, Pacemaker Smoking: Non-smoker Alcohol Use: None Drug Use: None Adult General Chief Complaint Chief Complaint: SHORTNESS OF BREATH [facility] HPI Patient is a 88 year old female patient with extensive medical problem of frequent emergency room visits and hospitalization brought in by EMS because of chest pain and shortness of breath. Patient complaining of intermittent episodes of left lateral chest pain for more than one week and states she was in by her [employer] one week ago with the same problem and has appointment with her scarf and anneal operator tomorrow. Patient's daughter states she put her hand on her chest when she woke up and complaining of chest pain and shortness of breath and she called 911. Patient rated her pain as a moderate. Patient is a poor historian. Review of Systems Review of Systems Constitutional: Denies fever or chills [] Eyes: Denies change in visual acuity, redness, or eye pain [] HENT: Denies nasal congestion or sore throat [] Respiratory: Reports cough and shortness of breath Cardiovascular: No additional information not addressed in HPI [] GI: Denies abdominal pain, nausea, vomiting, bloody stools or diarrhea [] : Denies dysuria or hematuria [] Musculoskeletal: Denies back pain or joint pain [] Integument: Denies rash or skin lesions [] Neurologic: Denies headache, focal weakness or sensory changes [] Endocrine: Denies polyuria or polydipsia [] All other systems were reviewed and found to be within normal limits, except as documented in this note. Current Medications Current Medications Current Medications Medications (Trade) Dose Ordered Sig/[facility] Start Time Stop Time Status Last Admin Dose Admin Lorazepam (Ativan) 1 mg 1X ONCE 07/01/18 17:30 07/01/18 17:31 Allergies Allergies Allergies Coded Allergies Type Severity Reaction Last Updated Verified Influenza Virus Vaccines Allergy Intermediate GENERALIZED BODY/JOINT ACHES 12/09 Yes Penicillins Allergy Intermediate NAUSEA/VOMITING 10/20/17 Yes amoxicillin Allergy Intermediate Nausea/Vomiting 10/20/17 Yes cephalexin Allergy Intermediate Nausea/Vomiting 10/20/17 Yes clavulanic acid Allergy Intermediate Nausea/Vomiting 10/20/17 Yes metoclopramide Allergy Intermediate NAUSEA/VOMITING 10/20/17 Yes Physical Exam Physical Exam Constitutional: Well nourished, mild distress, non-toxic appearance. [] HENT: Normocephalic, atraumatic, oropharynx moist, no oral exudates, nose normal. [] Eyes: PERRLA, EOMI, conjunctiva normal, no discharge. [] Neck: Normal range of motion, no tenderness, supple, no stridor. [] Cardiovascular: Tachycardia , no murmur [] Lungs & Thorax: Bilateral breath sounds clear to auscultation, mild reproducible left lateral chest tenderness [] Abdomen: Bowel sounds normal, soft, no tenderness, no masses, no pulsatile masses. [] Skin: Warm, dry, no erythema, no rash. [] Back: No tenderness, no CVA tenderness. [] Extremities: No tenderness, no cyanosis, no clubbing, ROM intact, no edema. [] Neurologic: Alert and oriented X 3, normal motor function, normal sensory function, no focal deficits noted. [] Psychologic: Affect normal, mood normal. [] EKG EKG EKG interpreted by me. EKG at 1740 showed sinus tachycardia at rate of 107, abnormal left axis deviation, right bundle branch block, no acute ST and T-wave abnormalities Radiology/Procedures Radiology/Procedures [] Course & Med Decision Making Course & Med Decision Making Pertinent Labs and Imaging studies are pending. Patient care transferred to Dr. España at 1800. Patient care was assumed from Dr. Domínguez at shift change. Patient presented to the emergency department with left-sided chest pain and some shortness of breath. She does have a history of congestive heart failure. She has a history of multiple recurrent episodes of chest pain for which she has been evaluated at this hospital numerous times. She has had multiple negative ischemic workups recently, according to cardiology note from her hospitalization earlier this month which has been reviewed. She states that the chest discomfort that she has been having has been present for several weeks, and is a same pain that she was hospitalized for earlier this month. Additionally, the patient has an appointment see her scarf and anneal operator tomorrow. She takes Eliquis. She has a pacemaker. Her EKG has been reviewed. The EKG did show what appears to be in atrial sensed ventricular paced rhythm at a rate of 10 7 bpm, with a left axis deviation and nonspecific ST/T changes likely related to repolarization abnormalities. The EKG is not if and compared to patient's prior EKGs. A d-dimer was ordered, I am uncertain why. The patient is not having significant pleuritic chest pain, she'll already on Eliquis, and the suspicion for pulmonary embolism is very low. Given her chronic renal insufficiency, although her creatinine today is slightly better than prior, I do not believe that the risk of definitively ruling out a pulmonary embolism, which is not clinically suspected, warrants the risk of CT contrast or other imaging modalities at this time. I have reassessed the patient. She has clear lungs, heart rate of 75 on my assessment with a paced rhythm on the monitor, no pedal edema, no calf tenderness to palpation. She does have reproducible anterior chest wall tenderness to palpation which reproduces the patient's chest pain. She is in no distress and not short of breath. Her oxygen saturation is normal. I discussed disposition options with the patient's family. The patient actually has an appointment scheduled with her scarf and anneal operator for tomorrow. We discussed overnight observation to definitively rule out acute coronary syndromes, but given the duration of the patient's pain of several weeks and a negative troponin and other workup at this time, I do not feel that this is likely going to be of high yield. After discussing the risks and benefits with the patient and her family, the decision was made to release the patient, and she is to follow-up with her scarf and anneal operator tomorrow as scheduled. Return precautions were discussed in detail. Dragon Disclaimer Dragon Disclaimer This electronic medical record was generated, in whole or in part, using a voice recognition dictation system. Departure Departure: Impression: Primary Impression: Atypical chest pain Additional Impression: Chronic renal insufficiency Disposition: 01 HOME, SELF-CARE Condition: STABLE Referrals: PATRICIA COOPER MD (PCP) Additional Instructions: Follow-up with your scarf and anneal operator tomorrow as planned. Return to medical care for any new or worsening symptoms. Problem Qualifiers BRENDA DOMÍNGUEZ MD Jul 01, 2018 17:27 CAROL ESPAÑA MD Jul 01, 2018 18:55
[2018-07-01] MEDS ORDERED: LORazepam 2 MG/ML VIAL IV ONE (17:30)
--- NOTE | 2018-07-01 17:30 | EKG ---
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
[2018-07-01 17:52] LABS: BASO % 1 % (0-3); EOS # 0.1 x10^3/uL (0.0-0.7); EOS % 2 % (0-3); HEMATOCRIT 32.1 % (36.0-47.0); HEMOGLOBIN 10.5 g/dL (12.0-15.5); LYMPH # 1.8 x10^3/uL (1.0-4.8); LYMPH % 28 % (24-48); MEAN CORPUSCULAR HEMOGLOBIN 28 pg (25-35); MEAN CORPUSCULAR HGB CONC 33 g/dL (31-37); MEAN CORPUSCULAR VOLUME 87 fL (79-100); MONO # 0.3 x10^3/uL (0.0-1.1); MONO % 5 % (0-9); NEUT # 4.2 x10^3uL (1.8-7.7); NEUT % 64 % (31-73); PLATELET COUNT 182 x10^3/uL (140-400); RED BLOOD COUNT 3.71 x10^6/uL (3.50-5.40); RED CELL DISTRIBUTION WIDTH 15.9 % (11.5-14.5); WHITE BLOOD COUNT 6.6 x10^3/uL (4.0-11.0)
[2018-07-01 18:18] LABS: ALBUMIN 3.6 g/dL (3.4-5.0); ALBUMIN/GLOBULIN RATIO 0.9 (1.0-1.7); CALCIUM 8.8 mg/dL (8.5-10.1); CREATININE 1.9 mg/dL (0.6-1.0); GFR 30.2; MAGNESIUM 1.9 mg/dL (1.8-2.4); POTASSIUM 4.2 mmol/L (3.5-5.1); TOTAL BILIRUBIN 0.3 mg/dL (0.2-1.0); TOTAL PROTEIN 7.5 g/dL (6.4-8.2)
[2018-07-01 18:55] VITALS: BP 120/54
--- NOTE | 2018-07-02 01:00 | RAD ---
AP portable chest radiograph 07/01/2018 Clinical History: Shortness of breath and chest pain. An AP erect portable digital radiograph of the chest was obtained. Comparison study is dated 06/02/2018. A pacemaker is unchanged in position. The cardiac silhouette is mildly enlarged. Atherosclerotic calcification of the thoracic aorta is seen. The thoracic aorta is mildly tortuous. An anterior plate and bone screws overlies the lower cervical spine. No acute pulmonary infiltrate is noted. No pneumothorax or pleural effusion is seen. The osseous structures are unchanged. Impression: No acute abnormality is seen. Electronically signed by: Rubén Day MD (07/02/2018 12:56 AM) [id number]
== END 2018-07-01 19:00 | disposition home or self-care (01) ==
LOC: ER 17:11
DX: R07.89 Other chest pain (principal); I13.0 Hypertensive heart and chronic kidney disease with heart failure and stage 1 through stage 4 chronic kidney disease, or unspecified chronic kidney disease; E11.22 Type 2 diabetes mellitus with diabetic chronic kidney disease; N18.9 Chronic kidney disease, unspecified; I50.9 Heart failure, unspecified; I48.91 Unspecified atrial fibrillation; I25.10 Atherosclerotic heart disease of native coronary artery without angina pectoris; Z87.440 Personal history of urinary (tract) infections; Z90.49 Acquired absence of other specified parts of digestive tract; Z90.89 Acquired absence of other organs; Z95.0 Presence of cardiac pacemaker; Z88.1 Allergy status to other antibiotic agents; Z88.0 Allergy status to penicillin; Z88.7 Allergy status to serum and vaccine; Z88.8 Allergy status to other drugs, medicaments and biological substances
CPT/HCPCS: 36415; 71045; 80053; 82550; 83690; 83735; 83880; 84484; 85025; 85379; 93005; 96374; 99284; J2060

== ENCOUNTER 2018-07-06 09:05 | Inpatient (IN) | payer MEDICARE, OTHER ==
[~2018-07-06] VITALS: Ht 162.6 cm; Wt 83.2 kg
[2018-07-06 15:43] VITALS: BP 142/92
[2018-07-06] MEDS ORDERED: FURO-68 PO (16:03)
[2018-07-06] MEDS ORDERED: LOSA25TA PO (16:03)
[2018-07-06] MEDS ORDERED: ATOR10TA60 PO (16:03)
[2018-07-06] MEDS ORDERED: DEXL60CA2 PO (16:03)
[2018-07-06] MEDS ORDERED: INSU300I SQ (16:03)
[2018-07-06] MEDS ORDERED: MECL25TA3 PO (16:03)
[2018-07-06] MEDS ORDERED: APIX2.5T PO (16:03)
[2018-07-06] MEDS ORDERED: AMIO200T4 PO (16:03)
[2018-07-06] MEDS ORDERED: CHOL500016 PO (16:03)
[2018-07-06] MEDS ORDERED: INSU200I SQ (17:03)
[2018-07-06] MEDS ORDERED: NITROGLYCERIN SUBLINGUAL 0.4 MG BOTTLE OF 25. SL PRN (19:00)
[2018-07-06] MEDS ORDERED: SENN8.6T99 PO (19:06)
[2018-07-06] MEDS ORDERED: LIDO700A39 TP (19:06)
[2018-07-06] MEDS ORDERED: IPRA3AMP29 NEB ×2 (19:06)
[2018-07-06] MEDS ORDERED: ALBUTEROL SULFATE 2.5 MG/3 ML NEBU. NEB PRN (19:15)
[2018-07-06] MEDS ORDERED: DEXTROSE 50% 25 GM / 50ML DISP.SYRIN. IV PRN (19:15)
[2018-07-06] MEDS ORDERED: MECLIZINE 12.5 MG TABLET. PO PRN (19:30)
[2018-07-06 20:44] VITALS: BP 155/67
[2018-07-06] MEDS: IPRATRPIUM/ALBUTEROL 0.5/2.5MG 3 ML NEBU. NEB SCH (20:59)
[2018-07-06] MEDS: SENNOSIDES 8.6 MG TABLET PO SCH (21:23)
[2018-07-06] MEDS: rOPINIRole 0.25 MG TABLET. PO SCH (21:23)
[2018-07-06] MEDS: APIXABAN 2.5 MG TABLET PO SCH (21:23)
[2018-07-06] MEDS: AMIODARONE HCL 200 MG TABLET PO SCH (21:23)
[2018-07-06] MEDS: ATORVASTATIN CALCIUM 10 MG TABLET. PO SCH (21:23)
[2018-07-06] MEDS: INSULIN GLARGINE 300 UNITS/3 ML INSULN.PEN. SQ SCH (21:38)
[2018-07-07 06:05] VITALS: BP 135/76
[2018-07-07] MEDS: IPRATRPIUM/ALBUTEROL 0.5/2.5MG 3 ML NEBU. NEB SCH ×4 (06:18→19:56)
[2018-07-07] MEDS: INSULIN LISPRO 300 UNITS/3 ML INSULN.PEN. SQ SCH ×3 (08:00→16:38)
[2018-07-07] MEDS: ASPIRIN 81 MG TAB.CHEW PO SCH (08:12)
[2018-07-07] MEDS: LOSARTAN 25 MG TABLET. PO SCH (08:12)
[2018-07-07] MEDS: APIXABAN 2.5 MG TABLET PO SCH ×2 (08:12→21:15)
[2018-07-07] MEDS: SENNOSIDES 8.6 MG TABLET PO SCH ×2 (08:12→21:00)
[2018-07-07] MEDS: PANTOPRAZOLE 40 MG TABLET. PO SCH (08:12)
[2018-07-07] MEDS: MAGNESIUM OXIDE 400 MG TABLET PO SCH (08:13)
[2018-07-07] MEDS: FUROSEMIDE 40 MG TABLET PO SCH (08:13)
[2018-07-07] MEDS: AMIODARONE HCL 200 MG TABLET PO SCH ×2 (08:13→21:18)
[2018-07-07] MEDS: METOPROLOL TART IMMED RELEASE 25 MG TABLET PO SCH (08:14)
[2018-07-07] MEDS ORDERED: LIDOCAINE (700MG/PATCH) PATCH. TD PRN (09:00)
[2018-07-07] MEDS ORDERED: CHOLECALCIFEROL (VITAMIN D3) 1,000 UNIT TABLET PO SCH (09:00)
[2018-07-07] MEDS ORDERED: NON FORMULARY ITEM (Dexlansoprazole (Dexilant) 1 CAP) PO SCH (09:00)
[2018-07-07] MEDS: ACETAMINOPHEN 325 MG TABLET PO PRN ×2 (09:08→22:59)
[2018-07-07] MEDS: ALPRAZolam 0.5 MG TABLET PO PRN ×2 (09:12→21:15)
--- NOTE | 2018-07-07 16:33 | HP ---
ADMIT DATE: 07/06/2018 HISTORY OF PRESENT ILLNESS: The patient is an 88-year-old -[place]ym[place] female patient who was admitted to [facility] on 07/03/2018. She went to the ER after a fall preceded by shaking of her legs when standing up on a walker with support. Similar episodes have been occurring also for some time. There was no head injury. She has apparently a recurring episode of chest pain as well as orthopnea, paroxysmal nocturnal dyspnea and has been followed for years by Dr. Dunn for her cardiac problems. She was extensively evaluated and some changes in her medication were made, both by Dr. Dunn and the Nephrology team. They recommended also starting her on Aranesp for her anemia due to chronic kidney disease that she should receive as an outpatient and she was transferred to [facility] bed at [facility] to continue for physical and occupational therapy. PAST MEDICAL HISTORY: Significant for bronchial asthma, anemia of chronic kidney disease, atrial fibrillation/flutter, congestive heart failure, chronic obstructive pulmonary disease, coronary artery disease, diabetes mellitus, gastroesophageal reflux disease/gastritis, hypertension, kidney disease, nephrolithiasis, transient ischemic attack, dyslipidemia, ischemic stroke and prior history of myocardial infarction. PAST SURGICAL HISTORY: Significant for appendectomy, hernia repair, pacemaker placement, spine surgery, vascular procedure, eye surgery, hip procedure and knee procedure, together with percutaneous coronary intervention with stent deployment. She also had a permanent pacemaker placed. FAMILY HISTORY: Positive for diabetes, heart disease, hypertension, stroke, and TIA. SOCIAL HISTORY: She lives with her son. She has a very supporting family. She does not smoke, drink alcohol or use any recreational drugs. ALLERGIES: SHE IS ALLERGIC TO PENICILLIN, AMOXICILLIN, NABUMETONE FOR RELAFEN, CEPHALEXIN, AND NITROGLYCERIN. SHE DEVELOPED BLISTERS WHENEVER SHE USED NITRO-DUR. PHYSICAL EXAMINATION: GENERAL: When I examined her this afternoon, she was resting, slightly propped up in bed, in no apparent respiratory distress. No pallor, jaundice, cyanosis, or thyromegaly. No jugular venous distension. No lower limb edema. VITAL SIGNS: Her heart rate was 71, blood pressure was 135/76, temperature was 97.8, respiratory rate was 20, and oxygen saturation was 99% on 2 liters oxygen nasal cannula. HEAD, EYES, EARS, NOSE AND THROAT: Showed normocephalic, atraumatic. NECK: Supple. HEART: Showed normal first and second sounds. No gallop, rub or murmur. CHEST: Clear to auscultation. No crepitation or rhonchi. ABDOMEN: Distended, soft, nontender. NEUROLOGIC: She is awake, alert, responding appropriately. Cranial nerves intact. EXTREMITIES: She moves extremities without difficulty. Examination of the extremities showed no clubbing, cyanosis or edema. She is currently on following medications: She is on ipratropium bromide, albuterol sulfate by nebulizer 4 times a day, apixaban 2.5 mg twice a day, amiodarone 200 mg twice a day, atorvastatin calcium 10 mg at bedtime, nitroglycerin 0.4 mg sublingually every 5 minutes x 3, metoprolol tartrate 25 mg half a tablet daily. She is also on Cozaar 12.5 mg once a day, aspirin 81 mg once a day, acetaminophen 650 mg every 6 hours, alprazolam 0.5 mg 3 times a day, Requip 0.25 mg at bedtime, furosemide 40 mg once a day, magnesium oxide 800 mg daily. She is on senna 1 tablet twice a day, meclizine 25 mg 3 times a day, Dexilant 60 mg once a day, Protonix 40 mg once a day. She is on Toujeo SoloSTAR 60 units at bedtime and Humalog insulin as insulin sliding scale before meals. She is on Lidoderm patch applied topically once a day, cholecalciferol for vitamin D 5000 international units once a day every Thursday. IMPRESSION: In summary, this is an 88-year-old female patient who was admitted to [facility] with a history of fall. She apparently has episodes of hypotension and her blood pressure was adjusted. She continued to have obviously episodes of angina, chronic orthopnea, paroxysmal nocturnal dyspnea and sometimes episodes of diastolic heart failure. She is currently seemed to be hemodynamically stable, afebrile. Her lungs are clear. There is no edema. The patient was lying almost flat in bed. Her oxygen saturation was 99% on 2 liters of oxygen. PLAN: My plan is to continue with all her current medication. We will check her lab work as a baseline and decide on further management accordingly. JAMES MULTANI MD DR: ESTEPHANIA/deepak JOB#: [id number] / [id number]
[2018-07-07 21:15] VITALS: BP 118/76
[2018-07-07] MEDS: ATORVASTATIN CALCIUM 10 MG TABLET. PO SCH (21:15)
[2018-07-07] MEDS: rOPINIRole 0.25 MG TABLET. PO SCH (21:15)
[2018-07-07] MEDS: INSULIN GLARGINE 300 UNITS/3 ML INSULN.PEN. SQ SCH (21:25)
[2018-07-08] MEDS: IPRATRPIUM/ALBUTEROL 0.5/2.5MG 3 ML NEBU. NEB SCH ×2 (04:51→10:57)
[2018-07-08 06:05] VITALS: BP 152/78
[2018-07-08 06:29] LABS: HEMATOCRIT 32.7 % (36.0-47.0); HEMOGLOBIN 10.4 g/dL (12.0-15.5); RED BLOOD COUNT 3.74 x10^6/uL (3.50-5.40); WHITE BLOOD COUNT 5.7 x10^3/uL (4.0-11.0)
[2018-07-08 06:46] LABS: ALBUMIN 3.3 g/dL (3.4-5.0); ALBUMIN/GLOBULIN RATIO 0.9 (1.0-1.7); CALCIUM 8.9 mg/dL (8.5-10.1); CREATININE 1.9 mg/dL (0.6-1.0); GFR 30.2; POTASSIUM 4.4 mmol/L (3.5-5.1); TOTAL BILIRUBIN 0.3 mg/dL (0.2-1.0)
[2018-07-08] MEDS: INSULIN LISPRO 300 UNITS/3 ML INSULN.PEN. SQ SCH ×3 (08:00→17:07)
[2018-07-08] MEDS: LOSARTAN 25 MG TABLET. PO SCH (08:04)
[2018-07-08] MEDS: METOPROLOL TART IMMED RELEASE 25 MG TABLET PO SCH (08:05)
[2018-07-08] MEDS: MAGNESIUM OXIDE 400 MG TABLET PO SCH (08:05)
[2018-07-08] MEDS: AMIODARONE HCL 200 MG TABLET PO SCH ×2 (08:05→20:46)
[2018-07-08] MEDS: FUROSEMIDE 40 MG TABLET PO SCH (08:06)
[2018-07-08] MEDS: ALPRAZolam 0.5 MG TABLET PO PRN ×2 (08:06→20:56)
[2018-07-08] MEDS: APIXABAN 2.5 MG TABLET PO SCH ×2 (08:06→20:46)
[2018-07-08] MEDS: ASPIRIN 81 MG TAB.CHEW PO SCH (08:06)
[2018-07-08] MEDS: PANTOPRAZOLE 40 MG TABLET. PO SCH (08:06)
[2018-07-08] MEDS: SENNOSIDES 8.6 MG TABLET PO SCH ×2 (08:09→20:46)
[2018-07-08 19:35] VITALS: BP 122/74
[2018-07-08] MEDS: rOPINIRole 0.25 MG TABLET. PO SCH (20:46)
[2018-07-08] MEDS: ATORVASTATIN CALCIUM 10 MG TABLET. PO SCH (20:46)
[2018-07-08] MEDS: INSULIN GLARGINE 300 UNITS/3 ML INSULN.PEN. SQ SCH (20:53)
[2018-07-08] MEDS: ACETAMINOPHEN 325 MG TABLET PO PRN (21:00)
[2018-07-09 05:44] VITALS: BP 134/74
[2018-07-09] MEDS: INSULIN LISPRO 300 UNITS/3 ML INSULN.PEN. SQ SCH ×3 (08:00→17:46)
[2018-07-09] MEDS: SENNOSIDES 8.6 MG TABLET PO SCH ×2 (09:50→20:14)
[2018-07-09] MEDS: PANTOPRAZOLE 40 MG TABLET. PO SCH (09:50)
[2018-07-09] MEDS: APIXABAN 2.5 MG TABLET PO SCH ×2 (09:50→20:14)
[2018-07-09] MEDS: LOSARTAN 25 MG TABLET. PO SCH (09:51)
[2018-07-09] MEDS: AMIODARONE HCL 200 MG TABLET PO SCH ×2 (09:52→20:14)
[2018-07-09] MEDS: FUROSEMIDE 40 MG TABLET PO SCH (09:52)
[2018-07-09] MEDS: MAGNESIUM OXIDE 400 MG TABLET PO SCH (09:52)
[2018-07-09] MEDS: METOPROLOL TART IMMED RELEASE 25 MG TABLET PO SCH (09:53)
[2018-07-09] MEDS: ASPIRIN 81 MG TAB.CHEW PO SCH (09:54)
[2018-07-09] MEDS: IPRATRPIUM/ALBUTEROL 0.5/2.5MG 3 ML NEBU. NEB SCH (11:38)
[2018-07-09 18:22] VITALS: BP 147/65
[2018-07-09] MEDS: INSULIN GLARGINE 300 UNITS/3 ML INSULN.PEN. SQ SCH (20:12)
[2018-07-09] MEDS: ATORVASTATIN CALCIUM 10 MG TABLET. PO SCH (20:13)
[2018-07-09] MEDS: rOPINIRole 0.25 MG TABLET. PO SCH (20:15)
[2018-07-10 04:32] VITALS: BP 146/70
[2018-07-10] MEDS: ACETAMINOPHEN 325 MG TABLET PO PRN ×2 (04:33→09:41)
[2018-07-10] MEDS: ALPRAZolam 0.5 MG TABLET PO PRN (04:33)
[2018-07-10] MEDS: ASPIRIN 81 MG TAB.CHEW PO SCH (08:29)
[2018-07-10] MEDS: INSULIN LISPRO 300 UNITS/3 ML INSULN.PEN. SQ SCH ×3 (08:33→17:25)
[2018-07-10] MEDS: SENNOSIDES 8.6 MG TABLET PO SCH ×2 (09:30→20:07)
[2018-07-10] MEDS: AMIODARONE HCL 200 MG TABLET PO SCH ×2 (09:31→20:06)
[2018-07-10] MEDS: FUROSEMIDE 40 MG TABLET PO SCH (09:31)
[2018-07-10] MEDS: METOPROLOL TART IMMED RELEASE 25 MG TABLET PO SCH (09:31)
[2018-07-10] MEDS: APIXABAN 2.5 MG TABLET PO SCH ×2 (09:31→20:06)
[2018-07-10] MEDS: PANTOPRAZOLE 40 MG TABLET. PO SCH (09:32)
[2018-07-10] MEDS: MAGNESIUM OXIDE 400 MG TABLET PO SCH (09:32)
[2018-07-10] MEDS: LOSARTAN 25 MG TABLET. PO SCH (09:33)
[2018-07-10] MEDS: IPRATRPIUM/ALBUTEROL 0.5/2.5MG 3 ML NEBU. NEB SCH (10:54)
[2018-07-10 18:26] VITALS: BP 142/67
[2018-07-10] MEDS: rOPINIRole 0.25 MG TABLET. PO SCH (20:06)
[2018-07-10] MEDS: ATORVASTATIN CALCIUM 10 MG TABLET. PO SCH (20:07)
[2018-07-10] MEDS: INSULIN GLARGINE 300 UNITS/3 ML INSULN.PEN. SQ SCH (20:11)
[2018-07-11] MEDS: ALPRAZolam 0.5 MG TABLET PO PRN (01:57)
[2018-07-11] MEDS: ACETAMINOPHEN 325 MG TABLET PO PRN (01:57)
[2018-07-11 06:25] VITALS: BP 129/72
[2018-07-11 06:33] VITALS: BP 126/74
[2018-07-11] MEDS: INSULIN LISPRO 300 UNITS/3 ML INSULN.PEN. SQ SCH ×3 (08:07→17:13)
[2018-07-11] MEDS: ASPIRIN 81 MG TAB.CHEW PO SCH (08:12)
[2018-07-11] MEDS: FUROSEMIDE 40 MG TABLET PO SCH (08:48)
[2018-07-11] MEDS: APIXABAN 2.5 MG TABLET PO SCH ×2 (08:48→20:07)
[2018-07-11] MEDS: LOSARTAN 25 MG TABLET. PO SCH (08:48)
[2018-07-11] MEDS: MAGNESIUM OXIDE 400 MG TABLET PO SCH (08:48)
[2018-07-11] MEDS: PANTOPRAZOLE 40 MG TABLET. PO SCH (08:48)
[2018-07-11] MEDS: AMIODARONE HCL 200 MG TABLET PO SCH ×2 (08:49→20:08)
[2018-07-11] MEDS: METOPROLOL TART IMMED RELEASE 25 MG TABLET PO SCH (08:49)
[2018-07-11] MEDS: SENNOSIDES 8.6 MG TABLET PO SCH ×2 (08:58→20:08)
[2018-07-11] MEDS: IPRATRPIUM/ALBUTEROL 0.5/2.5MG 3 ML NEBU. NEB SCH (10:48)
[2018-07-11 18:27] VITALS: BP 158/74
[2018-07-11] MEDS: INSULIN GLARGINE 300 UNITS/3 ML INSULN.PEN. SQ SCH (20:07)
[2018-07-11] MEDS: ATORVASTATIN CALCIUM 10 MG TABLET. PO SCH (20:08)
[2018-07-11] MEDS: rOPINIRole 0.25 MG TABLET. PO SCH (20:08)
[2018-07-12 05:59] VITALS: BP 167/83
[2018-07-12] MEDS: INSULIN LISPRO 300 UNITS/3 ML INSULN.PEN. SQ SCH ×3 (08:00→17:00)
[2018-07-12] MEDS: ASPIRIN 81 MG TAB.CHEW PO SCH (08:09)
[2018-07-12] MEDS: MAGNESIUM OXIDE 400 MG TABLET PO SCH (08:09)
[2018-07-12] MEDS: PANTOPRAZOLE 40 MG TABLET. PO SCH (08:09)
[2018-07-12] MEDS: ALPRAZolam 0.5 MG TABLET PO PRN (08:09)
[2018-07-12] MEDS: AMIODARONE HCL 200 MG TABLET PO SCH ×2 (08:10→21:27)
[2018-07-12] MEDS: LOSARTAN 25 MG TABLET. PO SCH (08:11)
[2018-07-12] MEDS: FUROSEMIDE 40 MG TABLET PO SCH (08:12)
[2018-07-12] MEDS: APIXABAN 2.5 MG TABLET PO SCH ×2 (08:12→21:27)
[2018-07-12] MEDS: METOPROLOL TART IMMED RELEASE 25 MG TABLET PO SCH (08:12)
[2018-07-12] MEDS: SENNOSIDES 8.6 MG TABLET PO SCH ×2 (08:12→21:27)
[2018-07-12] MEDS: IPRATRPIUM/ALBUTEROL 0.5/2.5MG 3 ML NEBU. NEB SCH (11:10)
[2018-07-12 17:58] VITALS: BP 160/76
[2018-07-12] MEDS: ATORVASTATIN CALCIUM 10 MG TABLET. PO SCH (21:27)
[2018-07-12] MEDS: rOPINIRole 0.25 MG TABLET. PO SCH (21:28)
[2018-07-12] MEDS: INSULIN GLARGINE 300 UNITS/3 ML INSULN.PEN. SQ SCH (21:32)
[2018-07-13 05:36] VITALS: BP 155/74
[2018-07-13] MEDS: PANTOPRAZOLE 40 MG TABLET. PO SCH (08:09)
[2018-07-13] MEDS: ALPRAZolam 0.5 MG TABLET PO PRN (08:09)
[2018-07-13] MEDS: MAGNESIUM OXIDE 400 MG TABLET PO SCH (08:09)
[2018-07-13] MEDS: APIXABAN 2.5 MG TABLET PO SCH (08:09)
[2018-07-13] MEDS: FUROSEMIDE 40 MG TABLET PO SCH (08:09)
[2018-07-13] MEDS: SENNOSIDES 8.6 MG TABLET PO SCH ×2 (08:10→08:25)
[2018-07-13] MEDS: METOPROLOL TART IMMED RELEASE 25 MG TABLET PO SCH (08:10)
[2018-07-13] MEDS: ASPIRIN 81 MG TAB.CHEW PO SCH (08:10)
[2018-07-13] MEDS: AMIODARONE HCL 200 MG TABLET PO SCH (08:10)
[2018-07-13 08:11] VITALS: BP 155/74
[2018-07-13] MEDS: LOSARTAN 25 MG TABLET. PO SCH (08:11)
[2018-07-13] MEDS: INSULIN LISPRO 300 UNITS/3 ML INSULN.PEN. SQ SCH ×2 (08:27→12:21)
[2018-07-13] MEDS: IPRATRPIUM/ALBUTEROL 0.5/2.5MG 3 ML NEBU. NEB SCH (09:00)
== END 2018-07-13 16:58 | disposition home or self-care (01) | DRG 303 ==
LOC: LND 15:32
PROVIDERS: ADMIT Internal Medicine; ATTEND Internal Medicine
DX: I25.118 Atherosclerotic heart disease of native coronary artery with other forms of angina pectoris (principal); I50.30 Unspecified diastolic (congestive) heart failure; D63.1 Anemia in chronic kidney disease; E78.5 Hyperlipidemia, unspecified; I48.91 Unspecified atrial fibrillation; K21.9 Gastro-esophageal reflux disease without esophagitis; N18.9 Chronic kidney disease, unspecified; W18.39XA Other fall on same level, initial encounter; J45.909 Unspecified asthma, uncomplicated; Y93.89 Activity, other specified; I25.2 Old myocardial infarction; Y92.89 Other specified places as the place of occurrence of the external cause; Y99.8 Other external cause status; Z79.899 Other long term (current) drug therapy; Z82.3 Family history of stroke; Z82.49 Family history of ischemic heart disease and other diseases of the circulatory system; Z86.73 Personal history of transient ischemic attack (TIA), and cerebral infarction without residual deficits; Z83.3 Family history of diabetes mellitus; Z87.442 Personal history of urinary calculi; Z95.0 Presence of cardiac pacemaker; Z90.49 Acquired absence of other specified parts of digestive tract
CPT/HCPCS: 36415; 80053; 82947; 85027; 94640; J1815; J7620; 97110; 97116; 97530; 97535

== ENCOUNTER 2018-07-28 08:10 | Inpatient (IN) | payer MEDICARE, OTHER ==
[~2018-07-28] VITALS: Ht 162.6 cm; Wt 87.5 kg
[~2018-07-28 08:10] MED LIST changes: +ALBU2.5V8 INH; -ALBU8.5H8 INH; +AMIO200T4 PO; +CHOL500016 PO; +INSU200I SQ; +LIDO700A39 TP; +LOSA25TA PO; +SENN8.6T99 PO
[2018-07-28] MEDS ORDERED: methylPREDNISolone SOD SUCC PF 40 MG/ML VIAL. IV ONE (08:30)
[2018-07-28] MEDS ORDERED: INSULIN REGULAR 100 UNIT/ML 3ML VIAL. IV ONE (08:30)
[2018-07-28] MEDS ORDERED: IPRATRPIUM/ALBUTEROL 0.5/2.5MG 3 ML NEBU. NEB ONE (08:30)
[2018-07-28] MEDS ORDERED: IV NORMAL SALINE 1,000ML 1,000 ML IV SCH (08:30)
--- NOTE | 2018-07-28 08:41 | PHYS DOC ---
Past History Past Medical History: A-Fib, CAD, CHF, Diabetes, Heart Disease, Hip Fracture, Hypertension, Pneumonia, UTI Past Surgical History: Appendectomy, Cholecystectomy, Hip Replacement, Knee Replacement, Pacemaker Smoking: Non-smoker Alcohol Use: None Drug Use: None Adult General Chief Complaint Chief Complaint: SHORTNESS OF BREATH HPI HPI Patient is an 80-year-old -Citizen Of [place] female, who is familiar to me from an ER visit about a month ago. She presents to the emergency department today for increasing shortness of breath, wheezing, and a cough. She has a history of coronary disease and CHF as well. She has not had any chest pain. EMS reports that they found the patient hypoxic with diffuse wheezing. She does wear oxygen 2-3 L chronically. She has not had any nausea or vomiting, or any pleuritic pain. EMS administered a DuoNeb, with improvement in the patient's respiratory status. They reported the blood sugar of approximately 460. The patient is still short of breath, but is feeling somewhat better at this time. There are no alleviating or exacerbating factors to her symptoms.Her recent hospitalizations have been reviewed. Review of Systems Review of Systems Constitutional: Denies fever or chills [] Eyes: Denies change in visual acuity, redness, or eye pain [] HENT: Denies nasal congestion or sore throat [] Respiratory: Reports nonproductive cough and shortness of breath, along with wheezing.] Cardiovascular:The patient denies any chest pain, palpitations, or orthopnea [] GI: Denies abdominal pain, nausea, vomiting, bloody stools or diarrhea [] : Denies dysuria or hematuria [] Musculoskeletal: Denies back pain or joint pain [] Integument: Denies rash or skin lesions [] Neurologic: Denies headache, focal weakness or sensory changes [] Endocrine: Denies polyuria or polydipsia [] All other systems were reviewed and found to be within normal limits, except as documented in this note. Current Medications Current Medications Current Medications Medications (Trade) Dose Ordered Sig/[facility] Start Time Stop Time Status Last Admin Dose Admin Albuterol/ Ipratropium (Duoneb) 3 ml 1X ONCE 07/28/18 08:30 07/28/18 08:31 DC Insulin Human Regular (HumuLIN R VIAL) 10 unit 1X ONCE 07/28/18 08:30 07/28/18 08:31 DC Methylprednisolone Sodium Succinate (SOLU-Medrol 40MG VIAL) 40 mg 1X ONCE 07/28/18 08:30 07/28/18 08:31 DC Sodium Chloride 1,000 ml @ 100 mls/hr Q10H 07/28/18 08:30 07/28/18 18:29 Allergies Allergies Allergies Coded Allergies Type Severity Reaction Last Updated Verified Influenza Virus Vaccines Allergy Intermediate GENERALIZED BODY/JOINT ACHES 12/09 Yes Penicillins Allergy Intermediate NAUSEA/VOMITING 10/20/17 Yes amoxicillin Allergy Intermediate Nausea/Vomiting 10/20/17 Yes cephalexin Allergy Intermediate Nausea/Vomiting 10/20/17 Yes clavulanic acid Allergy Intermediate Nausea/Vomiting 10/20/17 Yes metoclopramide Allergy Intermediate NAUSEA/VOMITING 10/20/17 Yes Physical Exam Physical Exam PHYSICAL EXAM: CONSTITUTIONAL: Well developed, well nourished HEAD: normocephalic, atraumatic EENT: PERRL, EOMI. Conjunctivae normal color, sclerae non-icteric; moist mucous membranes. NECK: Supple, non-tender; no meningismus. LUNGS: There are diffuse coarse expiratory wheezes, with no crackles, no rhonchi , breathing is mildly labored, mildly diminished air movement is present diffusely. HEART: Regular rate and rhythm, no murmur CHEST: No deformity; non-tender ABDOMEN: The abdomen is soft, and non-tender, no masses or bruits. EXTREM: Normal ROM; no deformity, no calf tenderness. Normal pulses palpable in all extremities. There is mild bilateral pedal edema. SKIN: No rash; no diaphoresis NEURO: Alert; normal speech and cognition; CN's grossly intact; strength grossly intact without focal deficit. BACK: No CVA TTP. Current Patient Data Lab Results Laboratory Tests Test 07/28/18 08:35 07/28/18 09:10 White Blood Count 12.6 x10^3/uL Red Blood Count 3.53 x10^6/uL Hemoglobin 9.9 g/dL Hematocrit 31.8 % Mean Corpuscular Volume 90 fL Mean Corpuscular Hemoglobin 28 pg Mean Corpuscular Hemoglobin Concent 31 g/dL Red Cell Distribution Width 16.7 % Platelet Count 195 x10^3/uL Neutrophils (%) (Auto) 86 % Lymphocytes (%) (Auto) 9 % Monocytes (%) (Auto) 6 % Eosinophils (%) (Auto) 0 % Basophils (%) (Auto) 0 % Neutrophils # (Auto) 10.8 x10^3uL Lymphocytes # (Auto) 1.1 x10^3/uL Monocytes # (Auto) 0.7 x10^3/uL Eosinophils # (Auto) 0.0 x10^3/uL Basophils # (Auto) 0.0 x10^3/uL Prothrombin Time 10.0 SEC Prothromb Time International Ratio 1.0 Sodium Level 139 mmol/L Potassium Level 3.8 mmol/L Chloride Level 98 mmol/L Carbon Dioxide Level 24 mmol/L Anion Gap 17 Blood Urea Nitrogen 33 mg/dL Creatinine 2.8 mg/dL Estimated GFR (Cockcroft-Gault) 19.3 BUN/Creatinine Ratio 12 Glucose Level 407 mg/dL Calcium Level 9.2 mg/dL Magnesium Level 1.6 mg/dL Total Bilirubin 0.4 mg/dL Aspartate Amino Transf (AST/SGOT) 21 U/L Alanine Aminotransferase (ALT/SGPT) 28 U/L Alkaline Phosphatase 66 U/L Creatine Kinase 331 U/L Creatine Kinase MB (Mass) 6.6 ng/mL Creatine Kinase MB Relative Index 2.0 % Troponin I Quantitative < 0.017 ng/mL NB-Qnk-[id number]-Type Natriuretic Peptide 3142 pg/mL Total Protein 8.0 g/dL Albumin 4.1 g/dL Albumin/Globulin Ratio 1.1 Glucose (Fingerstick) 398 mg/dL Current Medications Medications (Trade) Dose Ordered Sig/[facility] Route PRN Reason Start Time Stop Time Status Last Admin Dose Admin Albuterol/ Ipratropium (Duoneb) 3 ml 1X ONCE NEB 07/28/18 08:30 07/28/18 08:31 DC 07/28/18 08:35 Insulin Human Regular (HumuLIN R VIAL) 10 unit 1X ONCE IV 07/28/18 08:30 07/28/18 08:31 DC 07/28/18 09:15 Methylprednisolone Sodium Succinate (SOLU-Medrol 40MG VIAL) 40 mg 1X ONCE IV 07/28/18 08:30 07/28/18 08:31 DC 07/28/18 08:45 Sodium Chloride 1,000 ml @ 100 mls/hr Q10H IV 07/28/18 08:30 07/28/18 18:29 07/28/18 08:46 Azithromycin 500 mg/Sodium Chloride 250 ml @ 250 mls/hr 1X ONCE IV 07/28/18 09:30 07/28/18 10:29 UNV EKG EKG [Probable normal sinus rhythm with occasional APCs at a rate of 95 beats for minute, left axis deviation, left anterior fascicular block, there are no acute ischemic ST/T changes.] Radiology/Procedures Radiology/Procedures [PROCEDURE: PORTABLE CHEST 1V Chest radiograph 07/28/2018 8:01 AM INDICATION: CHF, shortness of air COMPARISON: July 01, 2018 TECHNIQUE: Portable upright frontal view of the chest is provided. FINDINGS: The cardiomediastinal silhouette is within normal limits. Left chest wall cardiac device is in similar position. There are no pleural effusions. There is no pulmonary vascular congestion. There is no pneumothorax. Mild bronchial wall thickening may be seen with bronchitis. Mild osteoarthrosis of the glenohumeral joints, right greater than left. IMPRESSION: Findings are suggestive of bronchitis. No focal airspace consolidation is identified. ] Course & Med Decision Making Course & Med Decision Making Pertinent Labs and Imaging studies reviewed. (See chart for details) 9:30 AM:The patient's condition remains stable. I spoke with the hospitalist, who accepted the patient to the hospital for further evaluation and treatment. 9:55 AM: The patient's lactic acid returned elevated. I discussed the case again with the hospitalist. Both myself and the hospitalist, was familiar with the patient, have concern about giving her excessive levels of hydration, given her congestive heart failure and elevated BNP. We both agree that judicious hydration is appropriate. The patient be given small fluid boluses and closely monitored. It is certainly possible that her hypoxia at home, as reported by EMS , might have been contributing to her lactic acidosis. Her heart rate is in the 90s at this time. Blood pressure is 124/48. CRITICAL CARE TIME: 45 Minutes, excluding any procedures and care of other patients. Dragon Disclaimer Dragon Disclaimer This electronic medical record was generated, in whole or in part, using a voice recognition dictation system. Departure Departure: Impression: Primary Impression: COPD exacerbation Additional Impressions: Hyperglycemia Acute on chronic renal insufficiency Disposition: ADMITTED INPATIENT Admitting Physician: Jess Lynn Condition: IMPROVED Referrals: PATRICIA COOPER MD (PCP) Problem Qualifiers CAROL BURGOS MD Jul 28, 2018 08:41
--- NOTE | 2018-07-28 09:07 | RAD ---
Chest radiograph 07/28/2018 8:01 AM INDICATION: CHF, shortness of air COMPARISON: July 01, 2018 TECHNIQUE: Portable upright frontal view of the chest is provided. FINDINGS: The cardiomediastinal silhouette is within normal limits. Left chest wall cardiac device is in similar position. There are no pleural effusions. There is no pulmonary vascular congestion. There is no pneumothorax. Mild bronchial wall thickening may be seen with bronchitis. Mild osteoarthrosis of the glenohumeral joints, right greater than left. IMPRESSION: Findings are suggestive of bronchitis. No focal airspace consolidation is identified. Electronically signed by: Yoko Peoples MD (07/28/2018 9:03 AM) [id number]
[2018-07-28 09:15] LABS: BASO % 0 % (0-3); EOS % 0 % (0-3); HEMATOCRIT 31.8 % (36.0-47.0); HEMOGLOBIN 9.9 g/dL (12.0-15.5); LYMPH # 1.1 x10^3/uL (1.0-4.8); LYMPH % 9 % (24-48); MEAN CORPUSCULAR HEMOGLOBIN 28 pg (25-35); MEAN CORPUSCULAR HGB CONC 31 g/dL (31-37); MEAN CORPUSCULAR VOLUME 90 fL (79-100); MONO # 0.7 x10^3/uL (0.0-1.1); MONO % 6 % (0-9); NEUT # 10.8 x10^3uL (1.8-7.7); NEUT % 86 % (31-73); PLATELET COUNT 195 x10^3/uL (140-400); RED BLOOD COUNT 3.53 x10^6/uL (3.50-5.40); RED CELL DISTRIBUTION WIDTH 16.7 % (11.5-14.5); WHITE BLOOD COUNT 12.6 x10^3/uL (4.0-11.0)
[2018-07-28 09:21] LABS: ALBUMIN 4.1 g/dL (3.4-5.0); ALBUMIN/GLOBULIN RATIO 1.1 (1.0-1.7); CALCIUM 9.2 mg/dL (8.5-10.1); CREATININE 2.8 mg/dL (0.6-1.0); GFR 19.3; MAGNESIUM 1.6 mg/dL (1.8-2.4); POTASSIUM 3.8 mmol/L (3.5-5.1); TOTAL BILIRUBIN 0.4 mg/dL (0.2-1.0)
[2018-07-28] MEDS ORDERED: AZITHROMYCIN 500 MG in IV NORMAL SALINE 250ML 250 ML IV ONE (09:30)
[2018-07-28] MEDS ORDERED: IV NORMAL SALINE 500ML 500 ML IV ONE ×2 (10:00)
[2018-07-28] MEDS ORDERED: DEXTROSE 50% 25 GM / 50ML DISP.SYRIN. IV PRN ×2 (10:30→15:30)
[2018-07-28 10:41] VITALS: BP 151/69
[2018-07-28] MEDS ORDERED: INSULIN LISPRO 300 UNITS/3 ML INSULN.PEN. SQ SCH (12:00)
--- NOTE | 2018-07-28 15:00 | NUR ---
The patient, CARINA TREADWELL, 88 y/o, F admitted by JAMES MULTANI MD, was given written information regarding hospital policies, unit procedures and contact persons. Valuables were checked and admission assessment performed. Pt is alert and orientated, VSS except for HR is tachy. Pt is on 2LNC at 98%. 2nd IV started in the left wrist, IV fluids started. Pt is positive for sepsis, IV fluids bolus protocol is 2600mL but per Dr. Multani, only to give 2L of NS due to the pt's history of heart failure. Repeat lactic performed. Pt's lungs are wheezy and has a productive cough, sample sent to the lab of sputum. Pt's family at bedside. Will CTM.
[2018-07-28] MEDS ORDERED: NITROGLYCERIN SUBLINGUAL 0.4 MG BOTTLE OF 25. SL PRN (15:15)
[2018-07-28] MEDS ORDERED: ALBUTEROL SULFATE 2.5 MG/3 ML NEBU. NEB PRN (15:30)
[2018-07-28] MEDS: IPRATRPIUM/ALBUTEROL 0.5/2.5MG 3 ML NEBU. NEB SCH ×2 (15:32→20:57)
[2018-07-28] MEDS ORDERED: MECLIZINE 12.5 MG TABLET. PO PRN (15:45)
[2018-07-28] MEDS ORDERED: ALPRAZolam 0.5 MG TABLET PO PRN (15:45)
[2018-07-28 15:51] VITALS: BP 158/52
[2018-07-28] MEDS ORDERED: CHOLECALCIFEROL (VITAMIN D3) 1,000 UNIT TABLET PO SCH (16:00)
--- NOTE | 2018-07-28 17:12 | HP ---
ADMIT DATE: 07/28/2018 HISTORY OF PRESENT ILLNESS: The patient is an 88-year-old -[place] female patient who came to the Emergency Room complaining of shortness of breath. She said that she woke up around 4:30 in the morning complaining of severe shortness of breath. She complained also of orthopnea and paroxysmal nocturnal dyspnea. She has some chest tightness. By the time she arrived to the Emergency Room, she was in extreme respiratory distress, hypoxic diffuse wheezing. She denied any chest pain, denied any nausea or vomiting. She did have cough with blood-tinged sputum. She did receive DuoNeb en route to the hospital and with some improvement. Her blood sugar was extremely high at 460 and by the time she arrived to the Emergency Room, she is still short of breath, was extensively investigated. She was found to have mild leukocytosis. She also was found to have acute on chronic kidney injury and her chest x-ray showed peribronchial wall thickening. There were no focal airspace consolidation seen and the patient was admitted with acute COPD exacerbation, acute on chronic kidney injury, and hyperglycemia, although she is already known to have type 2 diabetes. She was given IV Solu-Medrol, Zithromax, and levofloxacin. She is allergic to multiple antibiotics. PAST MEDICAL HISTORY: Significant for coronary artery disease with recent unstable angina, essential hypertension, hypercholesterolemia, paroxysmal atrial fibrillation, chronic diastolic congestive heart failure, and pulmonary hypertension. She is also known to have chronic anemia, generalized osteoarthritis, previous history of deep vein thrombosis, type 2 diabetes mellitus, gastroesophageal reflux disease, peripheral arterial disease, history of stroke with no residual effect, and sick sinus syndrome. PAST SURGICAL HISTORY: Significant for permanent pacemaker placement as well as bilateral knee arthroplasty. FAMILY HISTORY: Unremarkable. SOCIAL HISTORY: She lives at home with her son. She does not smoke, drink alcohol, or use recreational drugs. She ambulates with a walker. ALLERGIES: She is allergic to INFLUENZA VIRUS VACCINE, PENICILLIN, AMOXICILLIN, CEPHALEXIN, CLAVULANIC ACID, AND METOCLOPRAMIDE. MEDICATIONS: She is currently on following medications: She is on ipratropium bromide and albuterol sulfate 0.5-2.5 mg 3 mL by nebulizer 4 times a day, apixaban 2.5 mg twice a day, amiodarone 200 mg twice a day, atorvastatin calcium 10 mg at bedtime, nitroglycerin 0.4 mg sublingually every 5 minutes x 3, metoprolol tartrate 12.5 mg daily, losartan potassium 12.5 mg once a day, aspirin 81 mg once a day, acetaminophen 650 mg every 6 hours, alprazolam 0.25 mg 3 times a day, Requip 0.25 mg at bedtime, furosemide 40 mg daily, magnesium oxide 800 mg daily, senna 1 tablet twice a day, meclizine 25 mg 3 times a day, lansoprazole 60 mg once a day, Protonix 40 mg once a day. She is on Lantus insulin 16 units at bedtime. She is on Humalog insulin 3 times a day, lidocaine patch topically once a day, cholecalciferol for vitamin D3 5000 international units once a day every Thursday. REVIEW OF SYSTEMS: As per history of present illness. PHYSICAL EXAMINATION: GENERAL: On arrival to the hospital, the patient was sitting slightly propped up in bed, clearly tachypneic and unable to finish her sentence. She was pale, but no jaundice, cyanosis, or thyromegaly. No jugular venous distension. No lower limb edema. VITAL SIGNS: Her heart rate was 106, blood pressure 151/69, temperature was 98.1, respiratory rate was 22 and oxygen saturation was 98% on 2 liters of oxygen. HEAD, EYES, EARS, NOSE, AND THROAT: Showed normocephalic, atraumatic. NECK: Supple. HEART: Showed distant first and second heart sounds. No gallop, rub, or murmur. CHEST: Shows central trachea, equally reduced expansion, reduced air entry with diffuse wheezing bilaterally. I could not appreciate any crepitation. ABDOMEN: Distended, soft, nontender. No guarding or rigidity. No organomegaly. All hernial orifices are intact. The bowel sounds are normal. NEUROLOGIC: She is awake, alert, responding appropriately. All cranial nerves are intact. EXTREMITIES: She moves extremities without difficulty. She normally ambulates with a walker. LABORATORY DATA AND IMAGING: Her lab work on arrival to the Emergency Room showed a white cell count of 12,600, hemoglobin 10, hematocrit 32, MCV 90, and platelet count of 195,000. Her chemistry showed that her serum sodium was 139, potassium 3.8, chloride 98, bicarbonate 24, anion gap of 17, BUN 33, creatinine 2.8, estimated GFR was 19 mL per minute. Her glucose was 407, calcium was 9.2, magnesium was 1.6. Total bilirubin, AST, ALT, alkaline phosphatase were normal. Her CK was 331. Troponin was less than 0.017. Her beta natriuretic peptide was 3142. Total protein was 8, albumin was 4.1. Her prothrombin time was 10, INR of 1. Her chest x-ray showed that the cardiomediastinal silhouette is within normal limits. Left chest wall cardiac devices in similar position. There are no pleural effusions. There is no pulmonary vascular congestion. There is no pneumothorax. Mild bronchial wall thickening may be seen with bronchitis, mild osteoarthrosis of the glenohumeral joint, right greater than left. Her EKG is obviously had a paced rhythm. ASSESSMENT AND PLAN: The patient was admitted with acute chronic obstructive pulmonary disease exacerbation, acute bronchitis, acute on chronic kidney injury, and hyperglycemia. My plan is to continue with the nebulized albuterol and Atrovent. Continue with Solu-Medrol. I will add sliding scale to achieve a better control of her blood sugar. The patient has also lactic acidosis and she has received about 2 liters of IV fluid. We are hydrating her cautiously given the fact that she has also history of congestive heart failure. JAMES MULTANI MD DR: ESTEPHANIA/deepak JOB#: [id number] / [id number]
[2018-07-28] MEDS: INSULIN LISPRO 300 UNITS/3 ML INSULN.PEN. SQ SCH (17:33)
--- NOTE | 2018-07-28 17:41 | EKG ---
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 Electronically Signed On 08-04-2018 10:59:49 [employer] HELPER by Da Kat
[2018-07-28 20:22] VITALS: BP 132/76
[2018-07-28] MEDS ORDERED: INSULIN GLARGINE 300 UNITS/3 ML INSULN.PEN. SQ SCH (21:00)
[2018-07-28] MEDS: rOPINIRole 0.25 MG TABLET. PO SCH (21:44)
[2018-07-28] MEDS: MONTELUKAST 10 MG TABLET. PO SCH (21:44)
[2018-07-28] MEDS: SENNOSIDES 8.6 MG TABLET PO SCH (21:44)
[2018-07-28] MEDS: APIXABAN 2.5 MG TABLET PO SCH (21:44)
[2018-07-28] MEDS: AMIODARONE HCL 200 MG TABLET PO SCH (21:45)
[2018-07-28] MEDS: ATORVASTATIN CALCIUM 10 MG TABLET. PO SCH (21:45)
[2018-07-28] MEDS: methylPREDNISolone SOD SUCC PF 40 MG/ML VIAL. IV SCH (22:02)
[2018-07-29] VITALS (7 sets, daily range): BP systolic 102–149; BP diastolic 62–82
[2018-07-29] MEDS: IPRATRPIUM/ALBUTEROL 0.5/2.5MG 3 ML NEBU. NEB SCH ×4 (05:21→20:31)
[2018-07-29 06:22] LABS: ALBUMIN 3.3 g/dL (3.4-5.0); ALBUMIN/GLOBULIN RATIO 0.8 (1.0-1.7); CALCIUM 8.6 mg/dL (8.5-10.1); CREATININE 2.3 mg/dL (0.6-1.0); GFR 24.2; POTASSIUM 4.8 mmol/L (3.5-5.1); TOTAL BILIRUBIN 0.4 mg/dL (0.2-1.0); TOTAL PROTEIN 7.2 g/dL (6.4-8.2)
[2018-07-29 06:23] LABS: HEMATOCRIT 29.8 % (36.0-47.0); HEMOGLOBIN 9.5 g/dL (12.0-15.5); RED BLOOD COUNT 3.35 x10^6/uL (3.50-5.40); RED CELL DISTRIBUTION WIDTH 16.3 % (11.5-14.5); WHITE BLOOD COUNT 9.3 x10^3/uL (4.0-11.0)
[2018-07-29] MEDS: methylPREDNISolone SOD SUCC PF 40 MG/ML VIAL. IV SCH ×3 (06:37→22:19)
[2018-07-29] MEDS ORDERED: INSULIN LISPRO 300 UNITS/3 ML INSULN.PEN. SQ SCH ×4 (07:30→17:15)
[2018-07-29] MEDS: APIXABAN 2.5 MG TABLET PO SCH ×2 (08:04→20:32)
[2018-07-29] MEDS: AMIODARONE HCL 200 MG TABLET PO SCH ×2 (08:05→20:32)
[2018-07-29] MEDS: MAGNESIUM OXIDE 400 MG TABLET PO SCH (08:06)
[2018-07-29] MEDS: PANTOPRAZOLE 40 MG TABLET. PO SCH (08:06)
[2018-07-29] MEDS: SENNOSIDES 8.6 MG TABLET PO SCH ×2 (08:06→20:32)
[2018-07-29] MEDS: METOPROLOL TART IMMED RELEASE 25 MG TABLET PO SCH (08:07)
[2018-07-29] MEDS: INSULIN LISPRO 300 UNITS/3 ML INSULN.PEN. SQ SCH ×3 (08:13→17:23)
[2018-07-29] MEDS: ASPIRIN 81 MG TAB.CHEW PO SCH (08:19)
[2018-07-29] MEDS: LOSARTAN 25 MG TABLET. PO SCH (08:20)
[2018-07-29] MEDS ORDERED: NON FORMULARY ITEM (Dexlansoprazole (Dexilant) 1 CAP) PO SCH (09:00)
[2018-07-29] MEDS ORDERED: FUROSEMIDE PO SCH (09:00)
[2018-07-29] MEDS ORDERED: LIDOCAINE (700MG/PATCH) PATCH. TD PRN (09:00)
--- NOTE | 2018-07-29 16:58 | PDOC ---
SUBJECTIVE: Continues to have cough and chest tightnes though much less than yesterday Her sputum is clearing with less and less blood tinged sputum Cough is causing chest pain OBJECTIVE: Problems: Problems Medical Problems: (1) Acute on chronic renal insufficiency Status: Acute (2) COPD exacerbation Status: Acute (3) Hyperglycemia Status: Acute resting comfortably in her chair Vital Signs: Vital Signs Date Time Temp Pulse Resp B/P (MAP) Pulse Ox O2 Delivery O2 Flow Rate FiO2 07/29/18 16:19 99 Nasal Cannula 3.0 07/29/18 14:40 98.2 74 22 130/71 (90) I & O Intake and Output 07/29/18 07:01 Intake Total 220 ml Balance 220 ml Intake Oral 220 ml # Voids 4 # Bowel Movements 3 Labs: Laboratory Tests Test 07/28/18 08:35 07/28/18 09:10 07/28/18 11:37 07/28/18 12:34 White Blood Count 12.6 x10^3/uL (4.0-11.0) Red Blood Count 3.53 x10^6/uL (3.50-5.40) Hemoglobin 9.9 g/dL (12.0-15.5) Hematocrit 31.8 % (36.0-47.0) Mean Corpuscular Volume 90 fL (79-100) Mean Corpuscular Hemoglobin 28 pg (25-35) Mean Corpuscular Hemoglobin Concent 31 g/dL (31-37) Red Cell Distribution Width 16.7 % (11.5-14.5) Platelet Count 195 x10^3/uL (140-400) Neutrophils (%) (Auto) 86 % (31-73) Lymphocytes (%) (Auto) 9 % (24-48) Monocytes (%) (Auto) 6 % (0-9) Eosinophils (%) (Auto) 0 % (0-3) Basophils (%) (Auto) 0 % (0-3) Neutrophils # (Auto) 10.8 x10^3uL (1.8-7.7) Lymphocytes # (Auto) 1.1 x10^3/uL (1.0-4.8) Monocytes # (Auto) 0.7 x10^3/uL (0.0-1.1) Eosinophils # (Auto) 0.0 x10^3/uL (0.0-0.7) Basophils # (Auto) 0.0 x10^3/uL (0.0-0.2) Prothrombin Time 10.0 SEC (9.4-11.4) Prothromb Time International Ratio 1.0 (0.9-1.1) Sodium Level 139 mmol/L (136-145) Potassium Level 3.8 mmol/L (3.5-5.1) Chloride Level 98 mmol/L (98-107) Carbon Dioxide Level 24 mmol/L (21-32) Anion Gap 17 (6-14) Blood Urea Nitrogen 33 mg/dL (7-20) Creatinine 2.8 mg/dL (0.6-1.0) Estimated GFR (Cockcroft-Gault) 19.3 BUN/Creatinine Ratio 12 (6-20) Glucose Level 407 mg/dL (70-99) Lactic Acid Level 5.1 mmol/L (0.4-2.0) 5.3 mmol/L (0.4-2.0) Calcium Level 9.2 mg/dL (8.5-10.1) Magnesium Level 1.6 mg/dL (1.8-2.4) Total Bilirubin 0.4 mg/dL (0.2-1.0) Aspartate Amino Transf (AST/SGOT) 21 U/L (15-37) Alanine Aminotransferase (ALT/SGPT) 28 U/L (14-59) Alkaline Phosphatase 66 U/L (46-116) Creatine Kinase 331 U/L (26-192) Creatine Kinase MB (Mass) 6.6 ng/mL (0.0-3.6) Creatine Kinase MB Relative Index 2.0 % (0-4) Troponin I Quantitative < 0.017 ng/mL (0-0.055) VO-Eig-P-Type Natriuretic Peptide 3142 pg/mL (0-449) Total Protein 8.0 g/dL (6.4-8.2) Albumin 4.1 g/dL (3.4-5.0) Albumin/Globulin Ratio 1.1 (1.0-1.7) Glucose (Fingerstick) 398 mg/dL (70-99) 320 mg/dL (70-99) Test 07/28/18 17:17 07/28/18 20:11 07/29/18 05:43 07/29/18 07:22 Glucose (Fingerstick) 381 mg/dL (70-99) 433 mg/dL (70-99) 384 mg/dL (70-99) White Blood Count 9.3 x10^3/uL (4.0-11.0) Red Blood Count 3.35 x10^6/uL (3.50-5.40) Hemoglobin 9.5 g/dL (12.0-15.5) Hematocrit 29.8 % (36.0-47.0) Mean Corpuscular Volume 89 fL (79-100) Mean Corpuscular Hemoglobin 28 pg (25-35) Mean Corpuscular Hemoglobin Concent 32 g/dL (31-37) Red Cell Distribution Width 16.3 % (11.5-14.5) Platelet Count 152 x10^3/uL (140-400) Sodium Level 136 mmol/L (136-145) Potassium Level 4.8 mmol/L (3.5-5.1) Chloride Level 101 mmol/L (98-107) Carbon Dioxide Level 24 mmol/L (21-32) Anion Gap 11 (6-14) Blood Urea Nitrogen 38 mg/dL (7-20) Creatinine 2.3 mg/dL (0.6-1.0) Estimated GFR (Cockcroft-Gault) 24.2 BUN/Creatinine Ratio 17 (6-20) Glucose Level 412 mg/dL (70-99) Calcium Level 8.6 mg/dL (8.5-10.1) Total Bilirubin 0.4 mg/dL (0.2-1.0) Aspartate Amino Transf (AST/SGOT) 40 U/L (15-37) Alanine Aminotransferase (ALT/SGPT) 29 U/L (14-59) Alkaline Phosphatase 52 U/L (46-116) Total Protein 7.2 g/dL (6.4-8.2) Albumin 3.3 g/dL (3.4-5.0) Albumin/Globulin Ratio 0.8 (1.0-1.7) Test 07/29/18 11:42 Glucose (Fingerstick) 417 mg/dL (70-99) ASSESSMENT: Looked well vitals are stable Chest showed bilateral scattered rhonchi but no crepitation PLAN: continue with current plan of management hydrocodone/APAP 5/325MG PO Q6H JAMES MULTANI MD Jul 29, 2018 16:58
[2018-07-29] MEDS: HYDROcodone/APAP 5/325MG 1 TAB TABLET PO PRN (17:19)
[2018-07-29] MEDS: ACETAMINOPHEN 325 MG TABLET PO PRN (17:19)
[2018-07-29] MEDS: MEROPENEM 500 MG in IV NORMAL SALINE 50ML 50 ML IV SCH (20:31)
[2018-07-29] MEDS: ATORVASTATIN CALCIUM 10 MG TABLET. PO SCH (20:31)
[2018-07-29] MEDS: MONTELUKAST 10 MG TABLET. PO SCH (20:32)
[2018-07-29] MEDS: rOPINIRole 0.25 MG TABLET. PO SCH (20:35)
[2018-07-29] MEDS ORDERED: INSULIN GLARGINE 300 UNITS/3 ML INSULN.PEN. SQ SCH ×2 (21:00)
[2018-07-29 23:06] LABS: BACTERIA,URINE 0 /HPF (0-FEW); BILIRUBIN,URINE NEG (NEG); CLARITY,URINE CLEAR; COLOR,URINE YELLOW; GLUCOSE,URINE >=1000 mg/dL (NEG); NITRITE,URINE NEG (NEG); SQUAMOUS EPITHELIAL CELL,UR MANY /LPF; UROBILINOGEN,URINE 0.2 mg/dL (0.2 mg/dL); WBC,URINE OCC /HPF (0-4)
[2018-07-30] MEDS: IPRATRPIUM/ALBUTEROL 0.5/2.5MG 3 ML NEBU. NEB SCH ×4 (05:01→20:52)
[2018-07-30] MEDS: methylPREDNISolone SOD SUCC PF 40 MG/ML VIAL. IV SCH ×3 (05:49→21:57)
[2018-07-30] MEDS: MEROPENEM 500 MG in IV NORMAL SALINE 50ML 50 ML IV SCH ×2 (05:49→16:23)
[2018-07-30 05:51] VITALS: BP 135/64
[2018-07-30 06:24] LABS: HEMATOCRIT 28.8 % (36.0-47.0); HEMOGLOBIN 9.2 g/dL (12.0-15.5); RED BLOOD COUNT 3.15 x10^6/uL (3.50-5.40); RED CELL DISTRIBUTION WIDTH 16.9 % (11.5-14.5); WHITE BLOOD COUNT 7.9 x10^3/uL (4.0-11.0)
[2018-07-30 06:40] LABS: ALBUMIN 3.2 g/dL (3.4-5.0); ALBUMIN/GLOBULIN RATIO 0.8 (1.0-1.7); CALCIUM 8.2 mg/dL (8.5-10.1); CREATININE 2.8 mg/dL (0.6-1.0); GFR 19.3; POTASSIUM 4.5 mmol/L (3.5-5.1); TOTAL BILIRUBIN 0.3 mg/dL (0.2-1.0); TOTAL PROTEIN 7.1 g/dL (6.4-8.2)
[2018-07-30] MEDS ORDERED: INSULIN LISPRO 300 UNITS/3 ML INSULN.PEN. SQ SCH ×3 (07:30→11:30)
[2018-07-30] MEDS: MAGNESIUM OXIDE 400 MG TABLET PO SCH (08:03)
[2018-07-30] MEDS: METOPROLOL TART IMMED RELEASE 25 MG TABLET PO SCH (08:03)
[2018-07-30] MEDS: SENNOSIDES 8.6 MG TABLET PO SCH ×2 (08:03→20:51)
[2018-07-30] MEDS: ASPIRIN 81 MG TAB.CHEW PO SCH (08:03)
[2018-07-30] MEDS: HYDROcodone/APAP 5/325MG 1 TAB TABLET PO PRN ×2 (08:04→12:04)
[2018-07-30] MEDS: AMIODARONE HCL 200 MG TABLET PO SCH ×2 (08:04→20:52)
[2018-07-30] MEDS: APIXABAN 2.5 MG TABLET PO SCH ×2 (08:04→20:52)
[2018-07-30] MEDS: LOSARTAN 25 MG TABLET. PO SCH (08:05)
[2018-07-30] MEDS: PANTOPRAZOLE 40 MG TABLET. PO SCH (08:05)
[2018-07-30] MEDS: INSULIN LISPRO 300 UNITS/3 ML INSULN.PEN. SQ SCH ×6 (08:10→17:00)
[2018-07-30] MEDS: LACTOBACILLUS RHAMNOSUS GG 1 CAPSULE. PO SCH ×2 (08:15→20:51)
[2018-07-30 10:42] VITALS: BP 132/78
[2018-07-30 15:04] VITALS: BP 137/77
--- NOTE | 2018-07-30 16:21 | RAD ---
Portable chest, 07/30/2018: HISTORY: Shortness of breath, worsening Comparison is made to a study from 07/28/2018. The heart is at the upper limits of normal in size. There is calcific plaquing of the aorta. A left-sided transvenous pacing device remains in place with active and inactive leads extending into the right heart. The pulmonary vascularity is normal. No pulmonary infiltrate is seen. There is no evidence of pleural fluid. IMPRESSION: No acute cardiopulmonary abnormality is detected. Electronically signed by: Santy Pan MD (07/30/2018 4:16 PM) [facility]
[2018-07-30 19:46] VITALS: BP 133/74
[2018-07-30] MEDS: rOPINIRole 0.25 MG TABLET. PO SCH (20:51)
[2018-07-30] MEDS: MONTELUKAST 10 MG TABLET. PO SCH (20:51)
[2018-07-30] MEDS: ATORVASTATIN CALCIUM 10 MG TABLET. PO SCH (20:51)
[2018-07-30] MEDS ORDERED: INSULIN GLARGINE 300 UNITS/3 ML INSULN.PEN. SQ SCH (21:00)
[2018-07-30 22:46] VITALS: BP 136/77
[2018-07-31] MEDS: IPRATRPIUM/ALBUTEROL 0.5/2.5MG 3 ML NEBU. NEB SCH ×4 (05:28→20:52)
[2018-07-31] MEDS: MEROPENEM 500 MG in IV NORMAL SALINE 50ML 50 ML IV SCH ×2 (05:34→17:13)
[2018-07-31] MEDS: methylPREDNISolone SOD SUCC PF 40 MG/ML VIAL. IV SCH ×3 (05:34→18:22)
[2018-07-31 05:37] VITALS: BP 148/72
[2018-07-31 06:41] LABS: BASO % 0 % (0-3); EOS % 0 % (0-3); HEMATOCRIT 30.3 % (36.0-47.0); HEMOGLOBIN 9.8 g/dL (12.0-15.5); LYMPH # 0.7 x10^3/uL (1.0-4.8); LYMPH % 8 % (24-48); MEAN CORPUSCULAR HEMOGLOBIN 29 pg (25-35); MEAN CORPUSCULAR HGB CONC 33 g/dL (31-37); MEAN CORPUSCULAR VOLUME 88 fL (79-100); MONO # 0.2 x10^3/uL (0.0-1.1); MONO % 3 % (0-9); NEUT # 7.8 x10^3uL (1.8-7.7); NEUT % 89 % (31-73); PLATELET COUNT 185 x10^3/uL (140-400); RED BLOOD COUNT 3.46 x10^6/uL (3.50-5.40); RED CELL DISTRIBUTION WIDTH 16.5 % (11.5-14.5); WHITE BLOOD COUNT 8.7 x10^3/uL (4.0-11.0)
--- NOTE | 2018-07-31 06:54 | PN ---
DATE: 07/30/2018 SUBJECTIVE: The patient is resting, sitting in her chair. Continue to complain of recurrent bouts of cough with scanty greenish sputum. This morning, she was also extremely short of breath. She required 2 breathing treatments back to back before she felt better. PHYSICAL EXAMINATION: GENERAL: When I saw her this afternoon, she actually looked better than yesterday. She was pale, but no jaundice, cyanosis, or thyromegaly. No jugular venous distension. No lower limb edema. VITAL SIGNS: Her heart rate was 76, blood pressure was 132/78, temperature was 98.4, respiratory rate was 20, and oxygen saturation was 99% on 2.5 liters of oxygen. HEAD, EYES, EARS, NOSE AND THROAT: Showed normocephalic, atraumatic. NECK: Supple. HEART: Showed normal first and second heart sounds. No gallop, rub or murmur. CHEST: Showed central trachea, equally reduced expansion, reduced air entry, vesicular sounds. I could not really appreciate any rhonchi. ABDOMEN: Slightly distended, soft, nontender. NEUROLOGIC: She was awake, alert, responding appropriately. All cranial nerves intact. She moves extremities without difficulty. She ambulates without walker. Her intake over the last 24 hours was 720, output was incompletely recorded. LABORATORY DATA: Her serum sodium was 132, potassium 4.5, chloride 97, bicarbonate 24, anion gap of 11, BUN 52, creatinine was 2.8, estimated GFR was 19 mL per minute. Her glucose was ron high at 545. Her calcium was 8.2. Total bilirubin was 0.3. AST, ALT, alkaline phosphatase were normal. Total protein was 7.1, albumin 3.2. Her white cell count was 7900, hemoglobin 9.2, hematocrit 28.8, MCV 91, and platelet count of 169,000. Prothrombin time 10, INR of 1. Urinalysis showed the urine was yellow, clear with a pH of 5, specific gravity of 1.010. There was small amount of protein in the urine, large amount of glucose, negative for ketones, nitrite, bilirubin and leukocyte esterase. Her sputum culture has grown showed many gram-positive cocci and many gram-negative rods. ASSESSMENT: 1. Acute on chronic renal insufficiency. 2. Chronic obstructive pulmonary disease exacerbation. 3. Poorly controlled hypertension. Other medical problems include paroxysmal atrial fibrillation, hyperlipidemia, hypertension, chronic diastolic congestive heart failure and pulmonary hypertension as well as chronic anemia. PLAN: My plan is to continue with the IV levofloxacin as well as meropenem. Continue with the Solu-Medrol. Continue with the nebulized treatment. I will also repeat her chest x-ray and we will decide on further management accordingly. JAMES MULTANI MD DR: ESTEPHANIA/deepak JOB#: [id number] / [id number]
[2018-07-31 07:06] LABS: ALBUMIN 3.1 g/dL (3.4-5.0); ALBUMIN/GLOBULIN RATIO 0.8 (1.0-1.7); CALCIUM 8.8 mg/dL (8.5-10.1); CREATININE 2.8 mg/dL (0.6-1.0); GFR 19.3; POTASSIUM 4.9 mmol/L (3.5-5.1); TOTAL BILIRUBIN 0.3 mg/dL (0.2-1.0); TOTAL PROTEIN 6.8 g/dL (6.4-8.2)
[2018-07-31] MEDS: INSULIN LISPRO 300 UNITS/3 ML INSULN.PEN. SQ SCH ×6 (08:00→17:12)
[2018-07-31] MEDS: ASPIRIN 81 MG TAB.CHEW PO SCH (08:47)
[2018-07-31] MEDS: AMIODARONE HCL 200 MG TABLET PO SCH ×2 (08:47→22:04)
[2018-07-31] MEDS: LOSARTAN 25 MG TABLET. PO SCH (08:48)
[2018-07-31] MEDS: APIXABAN 2.5 MG TABLET PO SCH ×2 (08:48→22:04)
[2018-07-31] MEDS: SENNOSIDES 8.6 MG TABLET PO SCH ×2 (08:48→22:04)
[2018-07-31] MEDS: PANTOPRAZOLE 40 MG TABLET. PO SCH (08:48)
[2018-07-31] MEDS: LACTOBACILLUS RHAMNOSUS GG 1 CAPSULE. PO SCH ×2 (08:48→22:04)
[2018-07-31] MEDS: MAGNESIUM OXIDE 400 MG TABLET PO SCH (08:48)
[2018-07-31] MEDS: METOPROLOL TART IMMED RELEASE 25 MG TABLET PO SCH (08:48)
[2018-07-31 11:16] VITALS: BP 123/66
[2018-07-31 15:02] VITALS: BP 165/78
[2018-07-31] MEDS: ACETAMINOPHEN 325 MG TABLET PO PRN (15:11)
[2018-07-31 19:53] VITALS: BP 146/85
[2018-07-31] MEDS: MONTELUKAST 10 MG TABLET. PO SCH (22:04)
[2018-07-31] MEDS: ATORVASTATIN CALCIUM 10 MG TABLET. PO SCH (22:04)
[2018-07-31] MEDS: rOPINIRole 0.25 MG TABLET. PO SCH (22:05)
[2018-07-31] MEDS: INSULIN GLARGINE 300 UNITS/3 ML INSULN.PEN. SQ SCH (22:06)
[2018-07-31 22:42] VITALS: BP 130/66
--- NOTE | 2018-07-31 23:56 | PN ---
DATE: 07/28/2018 SUBJECTIVE: The patient is actually resting slightly propped up in bed, clearly in no apparent respiratory distress. She still has difficulty bringing up phlegm. PHYSICAL EXAMINATION: GENERAL: When I examined her, she was slightly pale, but no jaundice, cyanosis or thyromegaly. No jugular venous distension. No lower limb edema. VITAL SIGNS: Her heart rate was 75, blood pressure was 123/66, temperature was 98.1, respiratory rate 22 and oxygen saturation was 100% on 1 liter of oxygen. HEAD, EYES, EARS, NOSE AND THROAT: Showed normocephalic, atraumatic. NECK: Supple. HEART: Showed normal first and second heart sounds. No gallop, rub or murmur. CHEST: Clear to auscultation. No crepitation. Very few scattered rhonchi, could not appreciate any crepitation. ABDOMEN: Slightly distended, soft, nontender. NEUROLOGIC: She was awake, alert, responding appropriately. All cranial nerves intact. She moves extremities without difficulty. She ambulates with a walker. Her intake over the last 24 hours was 660, output was 1050. LABORATORY DATA: As of this morning, her white cell count was 8700, hemoglobin 9.8, hematocrit 30, MCV 88, and platelet count of 185,000. Serum sodium was 138, potassium 4.9, chloride 103, bicarbonate 26, anion gap of 9, BUN 66, creatinine 2.8. Her blood sugar was 179, calcium was 8.8. Total bilirubin, AST, ALT, alkaline phosphatase were normal. Total protein was 6.8, albumin 3.1. Her prothrombin time was 10, INR of 1. Her sputum culture showed moderate gram-negative rods and many gram-positive cocci; however, the identification and sensitivity is still pending at the time of this dictation. ASSESSMENT: 1. Chronic renal insufficiency. 2. Chronic obstructive pulmonary disease exacerbation, poorly controlled type 2 diabetes secondary to steroids. 3. Other medical problems include: A. Paroxysmal atrial fibrillation. B. Hyperlipidemia. C. Hypertension. D. Chronic diastolic congestive heart failure. E. Pulmonary hypertension. F. Chronic anemia. PLAN: To continue with IV levofloxacin. Continue with IV meropenem. Continue with Solu-Medrol. I will hold her losartan potassium for now and cut down her steroids to 40 mg IV q. 12 hourly. I will also scale down her insulin if she might go into hypoglycemia. JAMES MULTANI MD DR: ESTEPHANIA/deepak JOB#: [id number] / [id number]
[2018-08-01] MEDS: IPRATRPIUM/ALBUTEROL 0.5/2.5MG 3 ML NEBU. NEB SCH ×4 (05:25→19:53)
[2018-08-01 05:34] VITALS: BP 162/82
[2018-08-01] MEDS: methylPREDNISolone SOD SUCC PF 40 MG/ML VIAL. IV SCH ×2 (05:47→17:09)
[2018-08-01] MEDS: MEROPENEM 500 MG in IV NORMAL SALINE 50ML 50 ML IV SCH ×2 (05:48→17:09)
[2018-08-01 06:53] LABS: HEMATOCRIT 32.8 % (36.0-47.0); HEMOGLOBIN 10.5 g/dL (12.0-15.5); RED BLOOD COUNT 3.76 x10^6/uL (3.50-5.40); RED CELL DISTRIBUTION WIDTH 16.5 % (11.5-14.5); WHITE BLOOD COUNT 7.9 x10^3/uL (4.0-11.0)
[2018-08-01 06:59] LABS: CALCIUM 8.6 mg/dL (8.5-10.1); CREATININE 2.5 mg/dL (0.6-1.0); POTASSIUM 4.4 mmol/L (3.5-5.1)
[2018-08-01] MEDS: INSULIN LISPRO 300 UNITS/3 ML INSULN.PEN. SQ SCH ×6 (08:00→17:10)
[2018-08-01] MEDS: ASPIRIN 81 MG TAB.CHEW PO SCH (08:22)
[2018-08-01] MEDS: LACTOBACILLUS RHAMNOSUS GG 1 CAPSULE. PO SCH ×2 (08:22→21:21)
[2018-08-01] MEDS: PANTOPRAZOLE 40 MG TABLET. PO SCH (08:22)
[2018-08-01] MEDS: AMIODARONE HCL 200 MG TABLET PO SCH ×2 (08:22→21:22)
[2018-08-01] MEDS: MAGNESIUM OXIDE 400 MG TABLET PO SCH (08:23)
[2018-08-01] MEDS: METOPROLOL TART IMMED RELEASE 25 MG TABLET PO SCH (08:23)
[2018-08-01] MEDS: SENNOSIDES 8.6 MG TABLET PO SCH ×2 (08:24→21:21)
[2018-08-01] MEDS: APIXABAN 2.5 MG TABLET PO SCH ×2 (08:24→21:21)
[2018-08-01 11:01] VITALS: BP 133/85
--- NOTE | 2018-08-01 12:33 | PN ---
DATE: 07/28/2018 SUBJECTIVE: The patient is sitting on the edge of the bed comfortably, in no apparent distress. Apparently, chest physiotherapy treatment is helping her to bring up her phlegm and she is feeling way much better. PHYSICAL EXAMINATION: GENERAL: When I saw her this morning, she looked well and was clearly in no apparent respiratory distress, slightly pale, but no jaundice, cyanosis, or thyromegaly. No jugular venous distension. No lower limb edema. VITAL SIGNS: Her heart rate was 76, blood pressure was 133/85, temperature was 97.1, respiratory rate 22 and oxygen saturation was 100% on 2 liters of oxygen. HEAD, EYES, EARS, NOSE AND THROAT: Showed normocephalic, atraumatic. NECK: Supple. HEART: Showed normal first and second heart sounds with no gallop, rub or murmur. CHEST: Clear to auscultation. I could not really appreciate any crepitation or rhonchi. ABDOMEN: Distended, soft, nontender. NEUROLOGIC: She was awake, alert, responding appropriately. All cranial nerves intact. She moves extremities without difficulty. She ambulates without assistance or assistive devices. Her intake was 600, output was 1050. LABORATORY DATA: As of this morning, her serum sodium was 140, potassium 4.4, chloride 104, bicarbonate was 27, anion gap of 9, BUN 68, creatinine 2.5, estimated GFR was 22 mL per minute. Her glucose 95, calcium was 8.6. Her white cell count was 7900, hemoglobin 10.5, hematocrit 32, MCV 87, and platelet count of 194,000. ASSESSMENT: 1. Acute on chronic kidney injury. 2. Chronic obstructive pulmonary exacerbation. 3. Poorly controlled type 2 diabetes secondary to steroids, improved. 4. Other medical problems include: A. Paroxysmal atrial fibrillation. B. Hyperlipidemia. C. Hypertension. D. Chronic diastolic congestive heart failure. E. Pulmonary hypertension. F. Chronic anemia. PLAN: My plan is to continue with IV levofloxacin. Continue with IV meropenem. Continue with Solu-Medrol. We have held her losartan potassium. In fact, her kidney function has trending down. Her creatinine came down from 2.8-2.5 and I will continue with this physical therapy. Obviously if she remains stable by tomorrow, she can be discharged home on a tapering course of steroids. JAMES MULTANI MD DR: ESTEPHANIA/deepak JOB#: [id number] / [id number]
--- NOTE | 2018-08-01 15:31 | RAD ---
CT of the paranasal sinuses without contrast, 08/01/2018: HISTORY: Sinus pressure, headache and dizziness Noncontrast scans were obtained with multiplanar reconstructions produced. The paranasal sinuses are clear. The ethmoid infundibulum of the ostiomeatal complex is patent bilaterally. No free fluid is evident in the sinuses. No bony abnormality is detected. The orbital contents are unremarkable. IMPRESSION: No significant paranasal sinus abnormality is detected. Electronically signed by: Santy Pan MD (08/01/2018 3:27 PM) [facility]
[2018-08-01 16:15] VITALS: BP 147/73
[2018-08-01 20:11] VITALS: BP 149/80
[2018-08-01] MEDS: rOPINIRole 0.25 MG TABLET. PO SCH (21:21)
[2018-08-01] MEDS: MONTELUKAST 10 MG TABLET. PO SCH (21:21)
[2018-08-01] MEDS: ATORVASTATIN CALCIUM 10 MG TABLET. PO SCH (21:21)
[2018-08-01] MEDS: ACETAMINOPHEN 325 MG TABLET PO PRN (21:21)
[2018-08-01] MEDS: INSULIN GLARGINE 300 UNITS/3 ML INSULN.PEN. SQ SCH (21:27)
[2018-08-01 23:37] VITALS: BP 142/84
[2018-08-02] MEDS: MEROPENEM 500 MG in IV NORMAL SALINE 50ML 50 ML IV SCH ×2 (05:36→13:17)
[2018-08-02 06:02] VITALS: BP 149/78
[2018-08-02] MEDS: methylPREDNISolone SOD SUCC PF 40 MG/ML VIAL. IV SCH (06:06)
[2018-08-02] MEDS: IPRATRPIUM/ALBUTEROL 0.5/2.5MG 3 ML NEBU. NEB SCH ×2 (07:16→11:43)
[2018-08-02] MEDS: ASPIRIN 81 MG TAB.CHEW PO SCH (08:05)
[2018-08-02] MEDS: PANTOPRAZOLE 40 MG TABLET. PO SCH (08:05)
[2018-08-02] MEDS: SENNOSIDES 8.6 MG TABLET PO SCH (08:05)
[2018-08-02] MEDS: LACTOBACILLUS RHAMNOSUS GG 1 CAPSULE. PO SCH (08:05)
[2018-08-02] MEDS: MAGNESIUM OXIDE 400 MG TABLET PO SCH (08:05)
[2018-08-02] MEDS: APIXABAN 2.5 MG TABLET PO SCH (08:06)
[2018-08-02] MEDS: METOPROLOL TART IMMED RELEASE 25 MG TABLET PO SCH (08:07)
[2018-08-02] MEDS: AMIODARONE HCL 200 MG TABLET PO SCH (08:10)
[2018-08-02] MEDS: INSULIN LISPRO 300 UNITS/3 ML INSULN.PEN. SQ SCH ×4 (08:21→12:26)
[2018-08-02 11:05] VITALS: BP_SYST 143; BP_SYST 171; BP_DIAS 61; BP_DIAS 79
--- NOTE | 2018-08-02 13:05 | DS ---
DATE OF DISCHARGE: 07/28/2018 HOSPITAL COURSE: The patient is an 88-year-old -[place] female patient, who was admitted on 07/28/2018 with complaint of shortness of breath that awoke her from sleep early in the morning. She also complained of orthopnea with nocturnal dyspnea, cough, chest tightness. She was in extreme respiratory distress by the time she arrived to the hospital, hypoxic with diffuse wheezing; however, she denied any chest pain, denied any nausea, vomiting. Did have cough with blood-tinged sputum. She was started on IV steroids, IV antibiotics. She is allergic to AMOXICILLIN and PENICILLIN as well as CEPHALEXIN. We treated with meropenem and Levaquin. She was treated with IV Solu-Medrol and bronchodilator and her cough has improved. Hemoptysis has resolved. She continued to have difficulty expectorating with chest physiotherapy and that held. PHYSICAL EXAMINATION: GENERAL: When I saw her today, she denied any chest tightness. Denied any cough, phlegm, or hemoptysis. When I examined her, she looked well and was clearly in no apparent respiratory distress. She has no pallor, jaundice, cyanosis, or thyromegaly. No jugular venous distension. No lower limb edema. VITAL SIGNS: Her heart rate was 73, blood pressure 143/61, temperature was 97.7, respiratory rate was 22 and oxygen saturation was 100% on 2 liters of oxygen by nasal cannula. HEAD, EYES, EARS, NOSE AND THROAT: Showed normocephalic, atraumatic. NECK: Supple. HEART: Showed normal first and second heart sounds. No gallop, rub or murmur. CHEST: Clear to auscultation. No crepitation or rhonchi. ABDOMEN: Distended, soft, nontender. No guarding or rigidity. No organomegaly. All hernial orifice intact. Bowel sounds normal. NEUROLOGIC: She is awake, alert, responding appropriately. All cranial nerves intact. She ambulates with a walker. Her intake was 1200, no output was recorded. LABORATORY DATA: Her lab work this morning showed a white cell count 7900, hemoglobin 10, hematocrit 33, MCV 87, platelet count of 194,000. Her blood sugar has been somewhat suboptimally controlled. Her serum sodium was 140, potassium 4.4, chloride 104, bicarbonate 27, anion gap of 9, BUN 68, creatinine 2.5, estimated GFR was 22 mL per minute. Her glucose was 95 and calcium was 8.6. Her prothrombin time and INR are normal. Urinalysis was unremarkable. DISCHARGE MEDICATIONS: She was discharged home to continue on her Lantus insulin 16 units at bedtime. She is also on insulin sliding scale before meals, prednisone 40 mg once a day for 3 days and 30 mg once a day for to 3 days, 20 mg once a day for 2 days and then 10 mg once a day for 2 days, lactobacillus rhamnosus twice a day. She should continue on levofloxacin 500 mg every 48 hours, should have one on 08/04/2018, 08/06/2018, and 08/08/2018. Continue with Protonix 40 mg once a day, magnesium oxide 800 mg once a day, Lidoderm patch once a day, metoprolol tartrate 12.5 mg once a day, aspirin 81 mg once a day, Singulair 10 mg once a day, guaifenesin for Mucinex 600 mg twice a day, senna 1 tablet twice a day, Requip 0.25 mg at bedtime, atorvastatin 10 mg at bedtime, amiodarone 200 mg twice a day, apixaban 2.5 mg twice a day, vitamin D 5000 international units once a day, DuoNeb 4 times a day, meclizine 25 mg 3 times a day, alprazolam 0.5 mg 3 times a day and albuterol sulfate 2.5 mg by nebulizer every 6 hours, Tylenol 650 mg every 4 hours as needed. FINAL DISCHARGE DIAGNOSES: 1. Acute hypoxic respiratory failure. 2. Chronic obstructive pulmonary disease exacerbation. 3. Acute bronchitis with growth of 2 organisms in her sputum, gram-positive cocci and gram-positive rods. The identification and sensitivity is still pending at the time of this dictation. 4. Acute on chronic kidney injury, improving. 5. Other medical problems include: a. Paroxysmal atrial fibrillation, rate controlled, well anticoagulated. b. Hyperlipidemia. c. Hypertension. d. Chronic diastolic congestive heart failure. e. Pulmonary hypertension. f. Chronic anemia. JAMES MULTANI MD DR: ESTEPHANIA/deepak JOB#: [id number] / [id number]
--- NOTE | 2018-08-02 15:50 | NUR ---
Pt discharged home for self care. Pt left unit in stable condition via wheelchair accompanied by nurse and family member. Pt given discharge, follow up and medication instructions. Verbal understanding of instructions received from patient from this nurse.
== END 2018-08-02 15:00 | disposition home or self-care (01) | DRG 682 ==
LOC: ER 08:10 → 1 SOUTH 10:33
PROVIDERS: ADMIT Internal Medicine; ATTEND Internal Medicine
DX: N17.9 Acute kidney failure, unspecified (principal); J96.01 Acute respiratory failure with hypoxia; J44.1 Chronic obstructive pulmonary disease with (acute) exacerbation; E87.2 Acidosis; I13.0 Hypertensive heart and chronic kidney disease with heart failure and stage 1 through stage 4 chronic kidney disease, or unspecified chronic kidney disease; I50.32 Chronic diastolic (congestive) heart failure; J44.0 Chronic obstructive pulmonary disease with (acute) lower respiratory infection; J20.9 Acute bronchitis, unspecified; D64.9 Anemia, unspecified; E11.22 Type 2 diabetes mellitus with diabetic chronic kidney disease; E78.00 Pure hypercholesterolemia, unspecified; E78.5 Hyperlipidemia, unspecified; E11.51 Type 2 diabetes mellitus with diabetic peripheral angiopathy without gangrene; I27.20 Pulmonary hypertension, unspecified; E11.65 Type 2 diabetes mellitus with hyperglycemia; Z96.649 Presence of unspecified artificial hip joint; I25.10 Atherosclerotic heart disease of native coronary artery without angina pectoris; K21.9 Gastro-esophageal reflux disease without esophagitis; M15.9 Polyosteoarthritis, unspecified; N18.9 Chronic kidney disease, unspecified; Z96.653 Presence of artificial knee joint, bilateral; I48.0 Paroxysmal atrial fibrillation; T38.0X5A Adverse effect of glucocorticoids and synthetic analogues, initial encounter; Z86.718 Personal history of other venous thrombosis and embolism; Z87.01 Personal history of pneumonia (recurrent); Z87.440 Personal history of urinary (tract) infections; Z79.899 Other long term (current) drug therapy; Z86.73 Personal history of transient ischemic attack (TIA), and cerebral infarction without residual deficits; Z90.49 Acquired absence of other specified parts of digestive tract; Z88.0 Allergy status to penicillin; Z95.0 Presence of cardiac pacemaker
CPT/HCPCS: 36415; 70486; 71045; 80048; 80053; 81001; 82553; 82947; 83605; 83735; 83880; 84484; 85025; 85027; 85610; 87040; 87070; 87205; 93005; 94640; 94667; 94668; 94760; 96374; 96375; J1815; J1956; J2185; J2920; J7613; J7620; 99291-25; J7030

== ENCOUNTER 2018-08-10 10:15 | Inpatient (IN) | payer MEDICARE, OTHER ==
[~2018-08-10] VITALS: Ht 163.8 cm; Wt 88.1 kg
[2018-08-10] MEDS ORDERED: IPRATRPIUM/ALBUTEROL 0.5/2.5MG 3 ML NEBU. NEB ONE (10:30)
[2018-08-10 10:55] LABS: BASO # 0.1 x10^3/uL (0.0-0.2); BASO % 1 % (0-3); EOS # 0.2 x10^3/uL (0.0-0.7); EOS % 1 % (0-3); HEMATOCRIT 32.8 % (36.0-47.0); HEMOGLOBIN 10.5 g/dL (12.0-15.5); LYMPH # 1.4 x10^3/uL (1.0-4.8); LYMPH % 12 % (24-48); MEAN CORPUSCULAR HEMOGLOBIN 28 pg (25-35); MEAN CORPUSCULAR HGB CONC 32 g/dL (31-37); MEAN CORPUSCULAR VOLUME 88 fL (79-100); MONO # 0.6 x10^3/uL (0.0-1.1); MONO % 5 % (0-9); NEUT # 9.7 x10^3uL (1.8-7.7); NEUT % 81 % (31-73); PLATELET COUNT 202 x10^3/uL (140-400); RED BLOOD COUNT 3.74 x10^6/uL (3.50-5.40); RED CELL DISTRIBUTION WIDTH 16.4 % (11.5-14.5); WHITE BLOOD COUNT 11.9 x10^3/uL (4.0-11.0)
[2018-08-10 11:11] LABS: ALBUMIN 3.4 g/dL (3.4-5.0); CALCIUM 8.6 mg/dL (8.5-10.1); CREATININE 2.3 mg/dL (0.6-1.0); GFR 24.2; POTASSIUM 4.1 mmol/L (3.5-5.1); TOTAL BILIRUBIN 0.4 mg/dL (0.2-1.0); TOTAL PROTEIN 6.9 g/dL (6.4-8.2)
[2018-08-10] MEDS ORDERED: IV NORMAL SALINE 1,000ML 1,000 ML IV ONE (11:15)
[2018-08-10] MEDS ORDERED: IV DEXTROSE 5% 100 ML IV ONE (11:27)
[2018-08-10] MEDS ORDERED: DOXYCYCLINE HYCLATE 100 MG VIAL IV ONE (11:27)
--- NOTE | 2018-08-10 11:27 | RAD ---
EXAM: CHEST 1 VIEW History: Shortness of breath COMPARISON: 07/30/2018 TECHNIQUE: Single portable radiograph of the chest FINDINGS: Mild cardiomegaly. Left-sided cardiac pacer is identified. The costophrenic sulci are clear and well demarcated. IMPRESSION: No radiographic evidence of an acute cardiopulmonary process. Electronically signed by: Gerardo Arguello MD (08/10/2018 11:22 AM) [id number]
[2018-08-10] MEDS ORDERED: DOXYCYCLINE HYCLATE 100 MG in IV DEXTROSE 5% 100 ML IV ONE (11:30)
[2018-08-10] MEDS ORDERED: INSULIN REGULAR 100 UNIT/ML 3ML VIAL. IV ONE (11:30)
[2018-08-10] MEDS ORDERED: methylPREDNISolone SOD SUCC PF 125 MG/2 ML VIAL. IV ONE (11:30)
--- NOTE | 2018-08-10 11:57 | PHYS DOC ---
Past History Past Medical History: A-Fib, CAD, CHF, COPD, Diabetes, Heart Disease, Hip Fracture, Hypertension, IA, Pneumonia, Stroke, UTI Past Surgical History: Appendectomy, Cholecystectomy, Hip Replacement, Knee Replacement, Pacemaker Smoking: Non-smoker Alcohol Use: None Drug Use: None Adult General Chief Complaint Chief Complaint: SHORTNESS OF BREATH HPI HPI Patient is a 88 year old female with history of COPD with home oxygen brought in by family members because of shortness of breath and cough. Patient was seen by her primary care physician 8 days ago and treated with Levaquin and straight without improvement of her condition. Patient complaining of productive cough with cost and shortness of breath and generalized weakness. Patient states she lost her voice for 2 days ago and unable to sleep or eat because of constant cough and shortness of breath. Patient complaining of elevation of blood sugar and states her blood sugar was read as high last night. Patient denies chest pain, fever and chills, sick contacts, vomiting and diarrhea. Review of Systems Review of Systems Constitutional: Denies fever or chills [] Eyes: Denies change in visual acuity, redness, or eye pain [] HENT: Reports nasal congestion and sore throat Respiratory: Reports cough and shortness of breath Cardiovascular: No additional information not addressed in HPI [] GI: Denies abdominal pain, nausea, vomiting, bloody stools or diarrhea [] : Denies dysuria or hematuria [] Musculoskeletal: Denies back pain or joint pain [] Integument: Denies rash or skin lesions [] Neurologic: Denies headache, focal weakness or sensory changes [] Endocrine: Denies polyuria or polydipsia [] All other systems were reviewed and found to be within normal limits, except as documented in this note. Current Medications Current Medications Current Medications Medications (Trade) Dose Ordered Sig/Ruel Start Time Stop Time Status Last Admin Dose Admin Albuterol/ Ipratropium (Duoneb) 3 ml 1X ONCE 08/10/18 10:30 08/10/18 10:35 DC 08/10/18 11:03 3 ML Dextrose 100 ml @ As Directed STK-MED ONCE 08/10/18 11:27 08/10/18 11:29 DC Doxycycline Hyclate 100 mg STK-MED ONCE 08/10/18 11:27 08/10/18 11:29 DC Doxycycline Hyclate 100 mg/ Dextrose 100 ml @ 50 mls/hr 1X ONCE 08/10/18 11:30 08/10/18 13:29 08/10/18 11:38 50 MLS/HR Insulin Human Regular (HumuLIN R VIAL) 8 unit 1X ONCE 08/10/18 11:30 08/10/18 11:31 DC 08/10/18 11:20 8 UNIT Methylprednisolone Sodium Succinate (SOLU-Medrol 125MG VIAL) 125 mg 1X ONCE 08/10/18 11:30 08/10/18 11:31 DC 08/10/18 11:24 125 MG Sodium Chloride 1,000 ml @ 1,000 mls/hr 1X ONCE 08/10/18 11:15 08/10/18 12:14 08/10/18 11:32 1,000 MLS/HR Allergies Allergies Allergies Coded Allergies Type Severity Reaction Last Updated Verified Influenza Virus Vaccines Allergy Intermediate GENERALIZED BODY/JOINT ACHES 12/09 Yes Penicillins Allergy Intermediate NAUSEA/VOMITING 10/20/17 Yes amoxicillin Allergy Intermediate Nausea/Vomiting 10/20/17 Yes cephalexin Allergy Intermediate Nausea/Vomiting 10/20/17 Yes clavulanic acid Allergy Intermediate Nausea/Vomiting 10/20/17 Yes metoclopramide Allergy Intermediate NAUSEA/VOMITING 10/20/17 Yes Physical Exam Physical Exam Constitutional: Well developed, well nourished, moderate distress, non-toxic appearance. [] HENT: Normocephalic, atraumatic, bilateral external ears normal, oropharynx moist, no oral exudates, nose normal. [] Eyes: PERRLA, EOMI, conjunctiva normal, no discharge. [] Neck: Normal range of motion, no tenderness, supple, no stridor. [] Cardiovascular:Heart rate regular rhythm, no murmur [] Lungs & Thorax: Moderate respiratory distress with audible wheezing and tachypnea and intercostal retraction Abdomen: Bowel sounds normal, soft, no tenderness, no masses, no pulsatile masses. [] Skin: Warm, dry, no erythema, no rash. [] Back: No tenderness, no CVA tenderness. [] Extremities: No tenderness, no cyanosis, no clubbing, ROM intact, bilateral lower extremity edema[] Neurologic: Alert and oriented X 3, normal motor function, normal sensory function, no focal deficits noted. [] Psychologic: Affect normal, judgement normal, mood normal. [] Current Patient Data Vital Signs Vital Signs Date Time Temp Pulse Resp B/P (MAP) Pulse Ox O2 Delivery O2 Flow Rate FiO2 08/10/18 11:03 97 Room Air 08/10/18 10:19 98.6 75 20 Lab Results Laboratory Tests Test 08/10/18 10:38 08/10/18 10:52 White Blood Count 11.9 x10^3/uL (4.0-11.0) H Red Blood Count 3.74 x10^6/uL (3.50-5.40) Hemoglobin 10.5 g/dL (12.0-15.5) L Hematocrit 32.8 % (36.0-47.0) L Mean Corpuscular Volume 88 fL (79-100) Mean Corpuscular Hemoglobin 28 pg (25-35) Mean Corpuscular Hemoglobin Concent 32 g/dL (31-37) Red Cell Distribution Width 16.4 % (11.5-14.5) H Platelet Count 202 x10^3/uL (140-400) Neutrophils (%) (Auto) 81 % (31-73) H Lymphocytes (%) (Auto) 12 % (24-48) L Monocytes (%) (Auto) 5 % (0-9) Eosinophils (%) (Auto) 1 % (0-3) Basophils (%) (Auto) 1 % (0-3) Neutrophils # (Auto) 9.7 x10^3uL (1.8-7.7) H Lymphocytes # (Auto) 1.4 x10^3/uL (1.0-4.8) Monocytes # (Auto) 0.6 x10^3/uL (0.0-1.1) Eosinophils # (Auto) 0.2 x10^3/uL (0.0-0.7) Basophils # (Auto) 0.1 x10^3/uL (0.0-0.2) Sodium Level 139 mmol/L (136-145) Potassium Level 4.1 mmol/L (3.5-5.1) Chloride Level 100 mmol/L (98-107) Carbon Dioxide Level 28 mmol/L (21-32) Anion Gap 11 (6-14) Blood Urea Nitrogen 32 mg/dL (7-20) H Creatinine 2.3 mg/dL (0.6-1.0) H Estimated GFR (Cockcroft-Gault) 24.2 BUN/Creatinine Ratio 14 (6-20) Glucose Level 332 mg/dL (70-99) H Lactic Acid Level 3.0 mmol/L (0.4-2.0) H Calcium Level 8.6 mg/dL (8.5-10.1) Total Bilirubin 0.4 mg/dL (0.2-1.0) Aspartate Amino Transferase (AST) 38 U/L (15-37) H Alanine Aminotransferase (ALT) 77 U/L (14-59) H Alkaline Phosphatase 61 U/L (46-116) Troponin I Quantitative 0.092 ng/mL (0-0.055) H WY-Uml-A-Type Natriuretic Peptide 4086 pg/mL (0-449) H Total Protein 6.9 g/dL (6.4-8.2) Albumin 3.4 g/dL (3.4-5.0) Albumin/Globulin Ratio 1.0 (1.0-1.7) Glucose (Fingerstick) 330 mg/dL (70-99) H EKG EKG EKG interpreted by me. EKG at 1058 showed supraventricular rhythm at rate of 70 , prolonged ND interval, abnormal left axis deviation, nonspecific in straw ventricular block, poor R-wave progress and and temporal septal leads, no acute ST and T-wave abnormalities Radiology/Procedures Radiology/[place] [address] IMAGING REPORT Signed PATIENT: CARINA TREADWELL ACCOUNT: [id number] : 1930 LOCATION: ER AGE: 88 SEX: F EXAM STATUS: REG ER ORD. PHYSICIAN: BRENDA DOMÍNGUEZ MD REASON: SOB PROCEDURE: PORTABLE CHEST 1V EXAM: CHEST 1 VIEW History: Shortness of breath COMPARISON: 07/30/2018 TECHNIQUE: Single portable radiograph of the chest FINDINGS: Mild cardiomegaly. Left-sided cardiac pacer is identified. The costophrenic sulci are clear and well demarcated. IMPRESSION: No radiographic evidence of an acute cardiopulmonary process. Electronically signed by: Gerardo Arguello MD (08/10/2018 11:22 AM) [facility] DICTATED AND SIGNED BY: GERARDO ARGUELLO MD DATE: 08/10/18 1121 CC: BRENDA DOMÍNGUEZ MD; PATRICIA COOPER MD ~ Course & Med Decision Making Course & Med Decision Making Pertinent Labs and Imaging studies reviewed. (See chart for details) Evaluation of patient in ER showed 88-year-old female patient with history of COPD brought in by family members because of increasing shortness of breath and cough and not responding to outpatient treatment. Patient had audible wheezing with respiratory distress that improved with nebulizer treatment and Solu- Medrol. Patient had elevation of blood sugar that treated with insulin and IV fluid. Lactic acid was elevated and patient treated with doxycycline. Patient also had elevation of troponin without acute ST and T wave abnormality in EKG and serial troponin was requested. Dr Lynn accepted the admission at 1117. Dragon Disclaimer Dragon Disclaimer This electronic medical record was generated, in whole or in part, using a voice recognition dictation system. Departure Departure: Impression: Primary Impression: Acute respiratory distress Additional Impressions: COPD exacerbation Sepsis Hyperglycemia Elevated troponin Renal insufficiency Anxiety disorder Diabetes CHF (congestive heart failure) Disposition: 09 ADMITTED INPATIENT (at 1118) Admitting Physician: Jess Lynn (accepted admission at 1117) Condition: IMPROVED Referrals: PATRICIA COOPER MD (PCP) Problem Qualifiers BRENDA DOMÍNGUEZ MD Aug 10, 2018 11:57
[2018-08-10 14:42] VITALS: BP 180/83
[2018-08-10] MEDS ORDERED: DEXTROSE 50% 25 GM / 50ML DISP.SYRIN. IV PRN (16:15)
[2018-08-10] MEDS ORDERED: NITROGLYCERIN SUBLINGUAL 0.4 MG BOTTLE OF 25. SL PRN (16:15)
[2018-08-10] MEDS ORDERED: MECLIZINE 12.5 MG TABLET. PO PRN (16:30)
[2018-08-10] MEDS ORDERED: ALPRAZolam 0.5 MG TABLET PO PRN (16:30)
[2018-08-10] MEDS: IPRATRPIUM/ALBUTEROL 0.5/2.5MG 3 ML NEBU. NEB SCH ×2 (16:56→20:35)
[2018-08-10] MEDS: INSULIN LISPRO 300 UNITS/3 ML INSULN.PEN. SQ SCH ×2 (17:05)
--- NOTE | 2018-08-10 17:05 | HP ---
ADMIT DATE: 08/10/2018 HISTORY OF PRESENT ILLNESS: The patient is an 88-year-old -[place] female patient, who was brought to the Emergency Room by her family members because of increasing shortness of breath and cough. She was discharged from this facility on 08/02/2018 with home health. She was at that time discharged on a tapering course of steroids as well as to continue on levofloxacin 500 mg every 48 hours, starting on 08/04/2018, 08/06/2018, and 08/08/2018. Apparently, according to her son, her symptoms have continued since discharge and have progressively worsened. She also complained of hoarseness of voice and swelling of both legs and hands as well as orthopnea, but denied any chest pain. She was evaluated in the Emergency Room and her lab work showed mild leukocytosis and her serum creatinine and BUN were actually if anything better than before. Urinalysis was essentially unremarkable. Her chest x-ray showed that she has mild cardiomegaly, left-sided cardiac pacer identified. The costophrenic sulci are clear and well demarcated. No radiographic evidence of acute cardiopulmonary process. The patient was admitted again with chronic obstructive pulmonary disease exacerbation. She continued to have pain in both ears and in fact last admission, I did the CT scan of her paranasal sinuses and showed that the paranasal sinuses are clear. The ethmoid infundibulum and the ostiomeatal complex is patent bilaterally. No free fluid is evident in sinuses. No bony abnormalities detected. Orbital contents are unremarkable. The patient was admitted to continue on IV steroids, oral doxycycline and all her other medications. PAST MEDICAL HISTORY: Significant for coronary artery disease with recent unstable angina, hypertension, hypercholesterolemia, paroxysmal atrial fibrillation, chronic diastolic congestive heart failure and pulmonary hypertension. She is also known to have chronic anemia, generalized osteoarthritis, previous history of deep vein thrombosis, type 2 diabetes mellitus, gastroesophageal reflux disease, peripheral arterial disease, history of stroke with no residual effect and sick sinus syndrome. PAST SURGICAL HISTORY: Significant for permanent pacemaker placement as well as bilateral knee arthroplasty. FAMILY HISTORY: Unremarkable. SOCIAL HISTORY: She lives at home with her son. She does not smoke, drink alcohol or recreational drugs. She ambulates with a walker. ALLERGIES: She is allergic to INFLUENZA VIRUS VACCINE, PENICILLIN, AMOXICILLIN, CEPHALEXIN, CLAVULANIC ACID AND METOCLOPRAMIDE. MEDICATIONS: She was discharged home to continue on following medication, Lantus insulin 16 units at bedtime. She is also on insulin sliding scale before meals, prednisone 40 mg once a day for 3 days and 30 mg once a day for 3 days, 20 mg once a day for 2 days, and 10 mg once a day for 2 days. She was a lactobacillus rhamnosus twice a day. She should continue on levofloxacin 500 mg every 48 hours. Continue with Protonix 40 mg once a day, magnesium oxide 800 mg once a day, Lidoderm patch topically once a day, metoprolol tartrate 12.5 mg twice a day, aspirin 81 mg once a day, Singulair 10 mg once a day, guaifenesin for Mucinex 600 mg twice a day, Senna 1 tablet twice a day, Requip 0.25 mg at bedtime, atorvastatin 10 mg at bedtime, amiodarone 200 mg twice a day, apixaban 2.5 mg twice a day, vitamin D 5000 international units once a day, DuoNeb 4 times a day, meclizine 25 mg 3 times a day, alprazolam 0.5 mg 3 times a day, albuterol sulfate 2.5 mg by nebulizer every 6 hours and Tylenol 650 mg every 4 hours. REVIEW OF SYSTEMS: As per history of present illness. PHYSICAL EXAMINATION: GENERAL: On arrival to the Emergency Room today, she was tachypneic, pale, but no jaundice, cyanosis, or thyromegaly. No jugular venous distention. Mild bilateral lower limb edema. VITAL SIGNS: Her heart rate was 71, blood pressure was 180/83, temperature was 98, respiratory rate 24 and oxygen saturation was 99% on 2 liters of oxygen by nasal cannula. HEAD, EYES, EARS, NOSE, AND THROAT: Showed normocephalic, atraumatic. NECK: Supple. HEART: Showed normal first and second heart sounds with no gallop, rub or murmur. CHEST: Showed central trachea, equally reduced expansion, reduced air entry, vesicular sounds. No crepitation or rhonchi. ABDOMEN: Distended, soft, nontender. No guarding or rigidity. No organomegaly. All hernial orifice intact. Bowel sounds normal. NEUROLOGIC: She was awake, alert, responding appropriately. All cranial nerves intact. She moves extremities without difficulty. LABORATORY AND DIAGNOSTIC DATA: Her lab work on arrival showed her white cell count of 11,900, hemoglobin 10.5, hematocrit 32, MCV 88 and platelet count of 202,000. Her chemistry showed a serum sodium of 139, potassium 4.1, chloride 100, bicarbonate 28, anion gap of 11, BUN 32, creatinine 2.3, estimated GFR was 24 mL per minute. Her glucose was 332 mg/dL. Her serum calcium was 8.6. Total bilirubin and alkaline phosphatase normal. AST and ALT is slightly elevated. Her beta natriuretic peptide was 4086 and total protein 6.9, albumin 3.4. Her chest x-ray showed that there is mild cardiomegaly, left-sided cardiac pacer is identified. The costophrenic sulci are clear and well demarcated. The impression is that no radiographic evidence of an acute cardiopulmonary process. ASSESSMENT: 1. The patient will be admitted with diagnosis of acute hypoxic respiratory failure. 2. Chronic obstructive pulmonary disease. 3. Acute bronchitis with a growth of 2 organisms in her sputum, gram-positive cocci and gram-negative rods. PLAN: My plan is to continue with IV steroids and inhalers, Singulair as well as Mucinex. We will increase her Lantus and start her on sliding scale. I will also attempt to add Lasix to see whether congestive heart failure might be contributing. JAMES MULTANI MD DR: ESTEPHANIA/deepak JOB#: [id number] / [id number]
[2018-08-10 18:31] VITALS: BP 150/68
[2018-08-10] MEDS: SENNOSIDES 8.6 MG TABLET PO SCH (21:00)
[2018-08-10] MEDS ORDERED: INSULIN GLARGINE HUM REC ANLOG 16 UNIT SQ SCH (21:00)
[2018-08-10] MEDS: methylPREDNISolone SOD SUCC PF 40 MG/ML VIAL. IV SCH (21:29)
[2018-08-10] MEDS: APIXABAN 2.5 MG TABLET PO SCH (21:29)
[2018-08-10] MEDS: MONTELUKAST 10 MG TABLET. PO SCH (21:29)
[2018-08-10] MEDS: ATORVASTATIN CALCIUM 10 MG TABLET. PO SCH (21:29)
[2018-08-10] MEDS: rOPINIRole 0.25 MG TABLET. PO SCH (21:29)
[2018-08-10] MEDS: AMIODARONE HCL 200 MG TABLET PO SCH (21:29)
[2018-08-10] MEDS: INSULIN GLARGINE 300 UNITS/3 ML INSULN.PEN. SQ SCH (21:31)
[2018-08-11 00:29] VITALS: BP 129/61
[2018-08-11] MEDS: methylPREDNISolone SOD SUCC PF 40 MG/ML VIAL. IV SCH ×3 (05:19→20:40)
[2018-08-11] MEDS: IPRATRPIUM/ALBUTEROL 0.5/2.5MG 3 ML NEBU. NEB SCH ×4 (05:25→20:16)
[2018-08-11 05:54] VITALS: BP 140/74
[2018-08-11] MEDS: INSULIN LISPRO 300 UNITS/3 ML INSULN.PEN. SQ SCH ×6 (07:30→17:04)
[2018-08-11] MEDS: ASPIRIN 81 MG TAB.CHEW PO SCH (08:38)
[2018-08-11] MEDS: METOPROLOL TART IMMED RELEASE 25 MG TABLET PO SCH (08:39)
[2018-08-11] MEDS: SENNOSIDES 8.6 MG TABLET PO SCH ×2 (08:39→20:43)
[2018-08-11] MEDS: APIXABAN 2.5 MG TABLET PO SCH ×2 (08:39→20:43)
[2018-08-11] MEDS: MAGNESIUM OXIDE 400 MG TABLET PO SCH (08:40)
[2018-08-11] MEDS: PANTOPRAZOLE 40 MG TABLET. PO SCH (08:40)
[2018-08-11] MEDS: AMIODARONE HCL 200 MG TABLET PO SCH ×2 (08:45→20:43)
[2018-08-11] MEDS ORDERED: LIDOCAINE (700MG/PATCH) PATCH. TD PRN (09:00)
[2018-08-11] MEDS ORDERED: CHOLECALCIFEROL (VITAMIN D3) 1,000 UNIT TABLET PO SCH (09:00)
[2018-08-11] MEDS ORDERED: NON FORMULARY ITEM (Pantoprazole Sodium (Protonix) 1 TAB) PO SCH (09:00)
[2018-08-11 10:45] VITALS: BP 122/70
[2018-08-11] MEDS ORDERED: FUROSEMIDE 40 MG/4 ML VIAL IVP ONE (15:15)
[2018-08-11 15:33] VITALS: BP 134/61
--- NOTE | 2018-08-11 16:51 | RAD ---
CT of the neck without contrast, 08/11/2018: HISTORY: Coughing, wheezing dysphasia Noncontrast scans were obtained as requested, limiting evaluation of the neck structures. The laryngeal region is unremarkable. No airway narrowing is evident. The thyroid gland is within normal limits in size. There is no evidence of a thyroid mass. The parotid and submandibular gland show no abnormality. No cervical mass or adenopathy is seen. There is moderate calcific plaquing at the right carotid bifurcation. A surgical plate and screws is evident anteriorly at the C5-6 level due to a previous spinal fusion. Moderate multilevel degenerative change is present in the cervical spine with multiple prominent cervical spurs. Incidental note is made of mild mucosal thickening along the floor of the right maxillary sinus. IMPRESSION: 1. Moderate multilevel degenerative change in the cervical spine with prominent anterior spurs. 2. No acute neck abnormality is detected. CT of the chest without contrast, 08/11/2018: There is moderate calcific plaquing of the thoracic aorta and its branches including the coronary arteries. No aortic aneurysm is evident. The heart is at the upper limits of normal in size. Left-sided transvenous pacing leads extend into the right heart. No mediastinal adenopathy is seen. A small right renal cyst is noted. A calcified granuloma is present in the right upper lobe. No pulmonary mass or significant consolidation is seen. Mild pleural thickening in the posterior costophrenic angle on the left is probably due to scarring. No significant volume of pleural fluid is evident. Moderate multilevel degenerative changes are evident in the spine. IMPRESSION: 1. Moderate calcific plaquing of the aorta and coronary arteries. 2. No acute pulmonary abnormality is detected. Electronically signed by: Santy Pan MD (08/11/2018 4:47 PM) [facility]
--- NOTE | 2018-08-11 17:28 | EKG ---
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
[2018-08-11 20:19] VITALS: BP 131/73
[2018-08-11] MEDS: MONTELUKAST 10 MG TABLET. PO SCH (20:40)
[2018-08-11] MEDS: ATORVASTATIN CALCIUM 10 MG TABLET. PO SCH (20:40)
[2018-08-11] MEDS: rOPINIRole 0.25 MG TABLET. PO SCH (20:40)
[2018-08-11] MEDS: INSULIN GLARGINE 300 UNITS/3 ML INSULN.PEN. SQ SCH (20:46)
[2018-08-11] MEDS: ACETAMINOPHEN 325 MG TABLET PO PRN (20:46)
--- NOTE | 2018-08-11 21:28 | PN ---
DATE: 08/11/2018 SUBJECTIVE: The patient is resting, sitting comfortably in her chair, continued to complain of cough, chest tightness and wheezing. She is also complaining of pain in her both ears. However, her leg swelling has largely subsided. PHYSICAL EXAMINATION: GENERAL: When I examined her, she looked somewhat pale, but no jaundice, cyanosis or thyromegaly. No jugular venous distention. No limb edema. VITAL SIGNS: Her heart rate was 72, blood pressure was 122/70, temperature was 98, respiratory rate was 20, and oxygen saturation was 100% on 2 liters of oxygen. HEAD, EYES, EARS, NOSE AND THROAT: Showed normocephalic, atraumatic. NECK: Supple. HEART: Showed normal first and second heart sounds. No gallop, rub or murmur. CHEST: Shows central trachea, equal bilateral expansion, air entry, vesicular sounds with scattered rhonchi bilaterally. I could not appreciate any crepitation. ABDOMEN: Distended, soft. NEUROLOGIC: She was awake, alert, responding appropriately. Her cranial nerves intact. She moves extremities without difficulty. She ambulates with a walker. Her intake was 840. No output was recorded. LABORATORY DATA: Showed that her hemoglobin was 10.5, hematocrit 33. Normal white cell count and platelets. Her chemistry showed a BUN of 32, creatinine 2.3. ASSESSMENT: 1. Acute hypoxic respiratory failure. 2. Chronic obstructive pulmonary disease exacerbation. 3. Acute bronchitis with growth of 2 organisms in her sputum; however, we have not investigate any identified organisms or absence sensitivity since her admission last time. Her other medical problems include coronary artery disease, hypertension, hypercholesterolemia, paroxysmal atrial fibrillation, chronic diastolic congestive heart failure and pulmonary hypertension, type 2 diabetes, peripheral vascular disease. PLAN: My plan is to continue with current medication. I will arrange for her to have a CT scan of the soft tissue of the neck and CT scan of the chest without contrast given her impaired kidney function, looking for upper airway obstruction, given the degree of bronchospasm. Repeat all her lab work again tomorrow. JAMES MULTANI MD DR: ESTEPHNAIA/deepak JOB#: [id number] / [id number]
[2018-08-11 22:57] VITALS: BP 128/71
[2018-08-12] MEDS: ACETAMINOPHEN 325 MG TABLET PO PRN (03:40)
[2018-08-12] MEDS: IPRATRPIUM/ALBUTEROL 0.5/2.5MG 3 ML NEBU. NEB SCH ×4 (05:06→20:20)
[2018-08-12] MEDS: methylPREDNISolone SOD SUCC PF 40 MG/ML VIAL. IV SCH ×3 (05:15→20:54)
[2018-08-12 05:53] VITALS: BP 130/72
[2018-08-12 06:22] LABS: HEMATOCRIT 31.7 % (36.0-47.0); RED BLOOD COUNT 3.57 x10^6/uL (3.50-5.40); RED CELL DISTRIBUTION WIDTH 16.4 % (11.5-14.5)
[2018-08-12 06:47] LABS: ALBUMIN/GLOBULIN RATIO 0.9 (1.0-1.7); CALCIUM 8.2 mg/dL (8.5-10.1); CREATININE 2.3 mg/dL (0.6-1.0); GFR 24.2; POTASSIUM 5.2 mmol/L (3.5-5.1); TOTAL BILIRUBIN 0.3 mg/dL (0.2-1.0); TOTAL PROTEIN 6.3 g/dL (6.4-8.2)
[2018-08-12] MEDS: INSULIN LISPRO 300 UNITS/3 ML INSULN.PEN. SQ SCH ×6 (07:30→17:13)
[2018-08-12] MEDS: APIXABAN 2.5 MG TABLET PO SCH ×2 (08:25→20:56)
[2018-08-12] MEDS: PANTOPRAZOLE 40 MG TABLET. PO SCH (08:25)
[2018-08-12] MEDS: ASPIRIN 81 MG TAB.CHEW PO SCH (08:25)
[2018-08-12] MEDS: AMIODARONE HCL 200 MG TABLET PO SCH ×2 (08:25→20:56)
[2018-08-12] MEDS: MAGNESIUM OXIDE 400 MG TABLET PO SCH (08:26)
[2018-08-12] MEDS: METOPROLOL TART IMMED RELEASE 25 MG TABLET PO SCH (08:26)
[2018-08-12] MEDS: SENNOSIDES 8.6 MG TABLET PO SCH ×2 (08:27→20:56)
[2018-08-12] MEDS: BUDESONIDE 0.5 MG/2 ML NEBU NEB SCH ×2 (09:48→20:20)
[2018-08-12 10:55] VITALS: BP 121/71
[2018-08-12] MEDS: PHENOL ORAL SPRAY 177ML BOTTLE. PO PRN ×2 (16:29→20:54)
[2018-08-12] MEDS ORDERED: FUROSEMIDE 40 MG/4 ML VIAL IVP ONE (16:30)
[2018-08-12 16:45] VITALS: BP 134/75
[2018-08-12] MEDS ORDERED: ACETAMINOPHEN/CODEINE 300/30MG TABLET PO PRN (16:45)
[2018-08-12 19:35] VITALS: BP 133/61
[2018-08-12] MEDS: MONTELUKAST 10 MG TABLET. PO SCH (20:55)
[2018-08-12] MEDS: ATORVASTATIN CALCIUM 10 MG TABLET. PO SCH (20:55)
[2018-08-12] MEDS: rOPINIRole 0.25 MG TABLET. PO SCH (20:55)
[2018-08-12] MEDS: INSULIN GLARGINE 300 UNITS/3 ML INSULN.PEN. SQ SCH (21:06)
[2018-08-12 22:50] VITALS: BP 145/66
--- NOTE | 2018-08-13 01:28 | PN ---
DATE: 08/12/2018 SUBJECTIVE: The patient is sitting in her chair, continued to complain of cough with severe sore throat. She has not been able to sleep the whole night complaining of being choked. She is already on steroids, Pulmicort inhalers and Singulair without really much relief. She also complained of marked swelling of her legs. PHYSICAL EXAMINATION: GENERAL: When I examined her today, she was resting slightly propped up. She is sitting in her chair, clearly have hoarseness of voice, but she was not tachypneic. She was pale, but no jaundice, cyanosis or thyromegaly. No jugular venous distention. No limb edema. VITAL SIGNS: Her heart rate was 71, blood pressure was 121/71, temperature was 98.1, respiratory rate was 20, and oxygen saturation was 98% on 2 liters of oxygen by nasal cannula. HEAD, EYES, EARS, NOSE AND THROAT: Normocephalic, atraumatic. NECK: Supple. HEART: Showed normal first and second heart sounds with no gallop, rub or murmur. CHEST: Examination of the chest showed central trachea, equally reduced expansion, reduced air entry with diffuse scattered rhonchi, slightly better than yesterday, continued to be audible even without a stethoscope. ABDOMEN: Distended, soft, and nontender. NEUROLOGIC: She was awake, alert, responding appropriately. Extraocular movements intact. She moves extremities without difficulty. She ambulates with a walker. EXTREMITIES: Examination of the lower extremities showed no clubbing, cyanosis, but bilateral lower limb edema. Her intake was 1600, no output was recorded. LABORATORY DATA: Her lab work this morning showed a white cell count 14,000, hemoglobin 10, hematocrit 32, MCV 89 and platelet count of 176,000. His serum sodium was 138, potassium 5.2, chloride 103, bicarbonate 26, anion gap of 9, BUN 45, creatinine 2.3, estimated GFR was 24 mL per minute. Her glucose 149, calcium was 8.2. Total bilirubin, AST, ALT, and alkaline phosphatase were normal. Total protein was 6.3, albumin 3. ASSESSMENT: 1. Acute hypoxic respiratory failure. 2. Chronic obstructive pulmonary disease exacerbation. 3. Acute bronchitis. 4. The patient has multiple other medical problems including: A. Coronary artery disease. B. Hypertension. C. Hyperlipidemia. D. Paroxysmal atrial fibrillation. E. Chronic diastolic congestive heart failure. F. Pulmonary hypertension. G. Type 2 diabetes mellitus. H. Peripheral vascular disease. PLAN: To continue with all her current medication. We added Lasix 40 mg and we added also Chloraseptic one spray every 2 hours as needed, Lasix 40 mg once now and daily Lasix 40 mg. We will continue to monitor her clinical status and lab works and adjust medication accordingly. JAMES MULTANI MD DR: ESTEPHANIA/deepak JOB#: [id number] / [id number]
[2018-08-13] MEDS: IPRATRPIUM/ALBUTEROL 0.5/2.5MG 3 ML NEBU. NEB SCH ×2 (04:59→09:57)
[2018-08-13] MEDS: methylPREDNISolone SOD SUCC PF 40 MG/ML VIAL. IV SCH (05:01)
[2018-08-13 06:19] VITALS: BP 132/78
[2018-08-13 06:30] LABS: CREATININE 2.5 mg/dL (0.6-1.0); POTASSIUM 5.5 mmol/L (3.5-5.1)
[2018-08-13] MEDS: MAGNESIUM OXIDE 400 MG TABLET PO SCH (08:32)
[2018-08-13] MEDS: ASPIRIN 81 MG TAB.CHEW PO SCH (08:32)
[2018-08-13] MEDS: METOPROLOL TART IMMED RELEASE 25 MG TABLET PO SCH (08:32)
[2018-08-13] MEDS: SENNOSIDES 8.6 MG TABLET PO SCH (08:33)
[2018-08-13] MEDS: AMIODARONE HCL 200 MG TABLET PO SCH (08:33)
[2018-08-13] MEDS: PANTOPRAZOLE 40 MG TABLET. PO SCH (08:33)
[2018-08-13] MEDS: APIXABAN 2.5 MG TABLET PO SCH (08:33)
[2018-08-13] MEDS: INSULIN LISPRO 300 UNITS/3 ML INSULN.PEN. SQ SCH ×4 (08:43→12:37)
[2018-08-13] MEDS ORDERED: FUROSEMIDE 40 MG/4 ML VIAL IVP SCH (09:00)
[2018-08-13] MEDS: BUDESONIDE 0.5 MG/2 ML NEBU NEB SCH (09:56)
--- NOTE | 2018-08-13 09:58 | RAD ---
Chest, 2 views, 08/13/2018: HISTORY: Cough, shortness of breath Comparison is made to a study from 08/10/2018. The left-sided transvenous pacing device is again noted. The heart is mildly enlarged. The pulmonary vascularity is within normal limits. No pulmonary infiltrate is seen. There is no evidence of pleural fluid. Moderate spurring is present in the spine. A surgical plate and screws is evident in the lower cervical region. IMPRESSION: 1. Mild cardiomegaly. 2. No acute infiltrates. Electronically signed by: Santy Pan MD (08/13/2018 9:53 AM) [facility]
[2018-08-13 11:36] VITALS: BP 151/74
--- NOTE | 2018-08-13 12:39 | DS ---
DATE OF DISCHARGE: 08/13/2018 HISTORY OF PRESENT ILLNESS: The patient is an 88-year-old -Uz[place] female patient, who came back again to [facility] with a complaint of shortness of breath and cough. She was discharged from this facility on 08/02/2018 with home health. She was at that time discharged on a tapering course of steroids as well as to continue levofloxacin 500 mg every 48 hours starting on 08/04/2018, 08/06/2018, and 08/08/2018. Apparently, according to her son, her symptoms have continued since discharge and have progressively worsened. She also complained of hoarseness of voice and swelling of both legs and hands as well as orthopnea, but denied any chest pain. She was evaluated in the Emergency Room and her lab showed mild leukocytosis. Serum creatinine, BUN were actually if anything better than before. Urinalysis was essentially unremarkable. Chest x-ray showed she has mild cardiomegaly, left-sided cardiac pacemaker identified. The costophrenic sulci are clear and well demarcated. No radiographic evidence of acute cardiopulmonary stress process. The patient was admitted again with chronic obstructive pulmonary disease exacerbation. She continued to have pain in both ears and in fact last admission I did CT scan of her paranasal sinuses showed that her paranasal sinuses are clear. Continued also to have hoarseness of voice and sore throat stating that she is feeling as if she suffocated. I did a CT scan of the soft tissue of the neck. CT scan of the chest without contrast as well as chest x-ray really showed no evidence of any problems. In particular, there is no evidence of any soft tissue swelling, lymph nodes, or upper airway obstruction. Her wheezing has improved, but the patient continued to complain of shortness of breath despite the fact that her oxygen saturations 100% and given continued symptoms decision was made to transfer her to [facility] to consult the dining room busser as well as cnc manufacturing engineer. I did treat her with IV Lasix daily and despite this she continued to have this feeling of severe shortness of breath, cough and sore throat and feeling that she is suffocated. PHYSICAL EXAMINATION: GENERAL: When I saw her today, she was in fact extremely panicky, very short of breath, tachypneic, pale, but no jaundice, cyanosis, or thyromegaly. No jugular venous distention, but bilateral lower limb edema. VITAL SIGNS: Her heart rate was 88, blood pressure was 151/74, temperature was 98.1, respiratory rate was 24, and oxygen saturation was 100% on 2 liters of oxygen. HEAD, EYES, EARS, NOSE AND THROAT: Showed normocephalic, atraumatic. NECK: Supple. HEART: Showed normal first and second heart sounds with no gallop, rub or murmur. CHEST: Shows central trachea, equal bilateral expansion, air entry, vesicular sounds. Very few scattered rhonchi. I could not appreciate any crepitation. ABDOMEN: Distended, soft, nontender. NEUROLOGIC: She is awake, alert, responding appropriately. All cranial nerves intact. She moves extremities without difficulty. She actually managed to walk with a walker with standby assist with physical therapy and actually walked to her lab around the nursing station here. Her intake over the last 24 hours was 1100, output incompletely recorded. LABORATORY DATA: Her lab work showed a serum sodium 139, potassium 5.5, chloride 104, bicarbonate 27, anion gap of 8, BUN 53, creatinine 2.5, estimated GFR was 22 mL per minute. Her glucose was 226 and calcium was 8. Her white cell count was 14,000, hemoglobin 10, hematocrit 32, MCV 89 and platelet count of 176. DISCHARGE MEDICATIONS: She was transferred to [facility] to continue on furosemide 40 mg IV daily, Tylenol No. 3 one tablet at bedtime. She is on Chloraseptic one spray every 2 hours as needed, budesonide for Pulmicort 0.5 mg by nebulizer twice a day, magnesium oxide 800 mg once a day, Lidoderm patch applied topically on for 12 hours and off 12 hours, Protonix 40 mg daily, vitamin D 5000 international unit once a day, metoprolol 12.5 mg daily, aspirin 81 mg once a day, methylprednisolone 40 mg IV q.8 hourly, senna 1 tablet twice a day, Requip 0.25 mg at bedtime, atorvastatin 10 mg at bedtime, amiodarone 200 mg twice a day, apixaban 2.5 mg twice a day, montelukast sodium 10 mg at bedtime. She is on Lantus insulin 30 units at bedtime, albuterol/ipratropium bromide for DuoNeb 4 times a day. She is on alprazolam 0.5 mg at bedtime, meclizine 25 mg 3 times a day, Humalog insulin 20 units 3 times a day before meals, nitroglycerin 0.4 mg every 5 minutes x 3 and Tylenol 650 mg every 6 hours. ASSESSMENT AND PLAN: 1. Acute hypoxic respiratory failure. 2. Chronic obstructive pulmonary disease exacerbation. 3. Acute bronchitis. 4. Coronary artery disease. 5. Hypertension. 6. Hypercholesterolemia. 7. Paroxysmal atrial fibrillation. 8. Chronic diastolic congestive heart failure. 9. Pulmonary hypertension. 10. Type 2 diabetes. 11. Peripheral vascular disease. JAMES MULTANI MD DR: ESTEPHANIA/deepak JOB#: [id number] / [id number]
== END 2018-08-13 12:35 | disposition short-term general hospital (02) | DRG 871 ==
LOC: ER 10:15 → 1 SOUTH 11:42
PROVIDERS: ADMIT Internal Medicine; ATTEND Internal Medicine
DX: A41.9 Sepsis, unspecified organism (principal); J96.01 Acute respiratory failure with hypoxia; I50.32 Chronic diastolic (congestive) heart failure; J44.0 Chronic obstructive pulmonary disease with (acute) lower respiratory infection; J44.1 Chronic obstructive pulmonary disease with (acute) exacerbation; E11.51 Type 2 diabetes mellitus with diabetic peripheral angiopathy without gangrene; E78.00 Pure hypercholesterolemia, unspecified; E11.65 Type 2 diabetes mellitus with hyperglycemia; I11.0 Hypertensive heart disease with heart failure; F41.9 Anxiety disorder, unspecified; E78.5 Hyperlipidemia, unspecified; Z96.649 Presence of unspecified artificial hip joint; Z96.653 Presence of artificial knee joint, bilateral; I25.10 Atherosclerotic heart disease of native coronary artery without angina pectoris; I48.0 Paroxysmal atrial fibrillation; I27.20 Pulmonary hypertension, unspecified; J20.9 Acute bronchitis, unspecified; K21.9 Gastro-esophageal reflux disease without esophagitis; M15.9 Polyosteoarthritis, unspecified; Z86.718 Personal history of other venous thrombosis and embolism; Z86.73 Personal history of transient ischemic attack (TIA), and cerebral infarction without residual deficits; Z87.01 Personal history of pneumonia (recurrent); Z87.440 Personal history of urinary (tract) infections; Z79.899 Other long term (current) drug therapy; Z90.49 Acquired absence of other specified parts of digestive tract; Z95.0 Presence of cardiac pacemaker
CPT/HCPCS: 36415; 70490; 71045; 71046; 71250; 80048; 80053; 82947; 83605; 83880; 84484; 85025; 85027; 87040; 93005; 94640; 96365; 96366; 96375; J1815; J1940; J2920; J2930; J3490; J7620; J7626; 97110; 97116; 97530; 97535; 99285-25; J7030

== ENCOUNTER 2018-11-12 15:10 | Inpatient (IN) | payer MEDICARE, OTHER ==
[~2018-11-12] VITALS: Ht 163.8 cm; Wt 86.2 kg
[~2018-11-12 15:10] MED LIST changes: -AMLO10TA6 PO; +AMLO10TA8 PO; +AMLO5TAB10 PO; -AMLO5TAB7 PO; +TRAZ-120 PO; -TRAZ-85 PO
--- NOTE | 2018-11-12 15:42 | PHYS DOC ---
Past History Past Medical History: A-Fib, CAD, CHF, COPD, Diabetes, Heart Disease, Hip Fracture, Hypertension, [place], Pneumonia, Stroke, UTI Past Surgical History: Appendectomy, Cholecystectomy, Hip Replacement, Knee Replacement, Pacemaker Smoking: Non-smoker Alcohol Use: None Drug Use: None Adult General Chief Complaint Chief Complaint: CHEST PAIN HPI HPI Patient is a 88-year-old female presents with shortness of breath and weakness. This is been going on for the past 4 days. Became much worse this morning. Patient felt like she was going to pass out but did not actually pass out. Notes some increased weight and swelling in her feet and ankles. She is having to sit up to sleep. Symptoms are moderate in intensity[] Review of Systems Review of Systems Constitutional: Denies fever or chills [] Eyes: Denies change in visual acuity, redness, or eye pain [] HENT: Denies nasal congestion or sore throat [] Respiratory: Denies cough or shortness of breath [] Cardiovascular: No additional information not addressed in HPI [] GI: Denies abdominal pain, nausea, vomiting, bloody stools or diarrhea [] : Denies dysuria or hematuria [] Musculoskeletal: Denies back pain or joint pain [] Integument: Denies rash or skin lesions [] Neurologic: Denies headache, focal weakness or sensory changes [] Endocrine: Denies polyuria or polydipsia [] All other systems were reviewed and found to be within normal limits, except as documented in this note. Allergies Allergies Allergies Coded Allergies Type Severity Reaction Last Updated Verified Influenza Virus Vaccines Allergy Intermediate GENERALIZED BODY/JOINT ACHES 12/09 Yes Penicillins Allergy Intermediate NAUSEA/VOMITING 10/20/17 Yes amoxicillin Allergy Intermediate Nausea/Vomiting 10/20/17 Yes cephalexin Allergy Intermediate Nausea/Vomiting 10/20/17 Yes clavulanic acid Allergy Intermediate Nausea/Vomiting 10/20/17 Yes metoclopramide Allergy Intermediate NAUSEA/VOMITING 10/20/17 Yes Physical Exam Physical Exam Constitutional: Well developed, well nourished, no acute distress, non-toxic appearance. [] HENT: Normocephalic, atraumatic, bilateral external ears normal, oropharynx moist, no oral exudates, nose normal. [] Eyes: PERRLA, EOMI, conjunctiva normal, no discharge. [] Neck: Normal range of motion, no tenderness, supple, no stridor. [] Cardiovascular:Heart rate regular rhythm, no murmur [] Lungs & Thorax: Bilateral breath sounds clear to auscultation [] Abdomen: Bowel sounds normal, soft, no tenderness, no masses, no pulsatile masses. [] Skin: Warm, dry, no erythema, no rash. [] Back: No tenderness, no CVA tenderness. [] Extremities: No tenderness, no cyanosis, no clubbing, ROM intact, mild pretibial edema. [] Neurologic: Alert and oriented X 3, normal motor function, normal sensory function, no focal deficits noted. [] Psychologic: Affect normal, judgement normal, mood normal. [] EKG EKG EKG shows a paced rhythm at 74 bpm, left axis at -71, QTC of 535 ms, no accordance, no significant discordance, no acute changes when compared with EKG of 08/10/2018. Interpreted by me at 1524[] Radiology/Procedures Radiology/Procedures PORTABLE CHEST 1V Clinical indications: SHORT OF AIR COMPARISON: August 13, 2018. Findings: No acute lung infiltrate or pleural effusion or pulmonary edema or lung mass or pneumothorax is seen. The heart size, pulmonary vasculature, mediastinum and both christiano are stable. Impression: No acute radiographic abnormality is seen.[] Course & Med Decision Making Course & Med Decision Making Pertinent Labs and Imaging studies reviewed. (See chart for details) ED course: Patient arrived, was placed in bed, and tolerated exam well. After the return of the laboratory and imaging studies, these were discussed with the patient and family. Consultation was made with hospitalist service for admission and they graciously accepted. Patient was admitted in improved condition. Medical decision making: Patient with history of cardiac issues, a pacemaker, and known congestive heart failure, appears to have an exacerbation of this. Cardiac enzymes are negative at this time. EKG does not show any acute changes. No evidence of significant fluid overload on imaging. She will be admitted for further evaluation and treatment.[] Dragon Disclaimer Dragon Disclaimer This electronic medical record was generated, in whole or in part, using a voice recognition dictation system. Departure Departure: Impression: Primary Impression: Acute on chronic diastolic CHF (congestive heart failure) Additional Impressions: Chronic atrial fibrillation Chest pain Disposition: ADMITTED INPATIENT Admitting Physician: Jess Lynn Condition: IMPROVED Referrals: PATRICIA COOPER MD (PCP) Problem Qualifiers Additional Impressions: Chest pain Chest pain type: unspecified Qualified Codes: R07.9 - Chest pain, unspecified YOVANI CROFT DO Nov 12, 2018 15:42
[2018-11-12] MEDS ORDERED: ASPIRIN 81 MG TAB.CHEW PO ONE (15:45)
[2018-11-12 15:50] LABS: BASO # 0.1 x10^3/uL (0.0-0.2); BASO % 1 % (0-3); EOS # 0.1 x10^3/uL (0.0-0.7); EOS % 2 % (0-3); HEMATOCRIT 35.3 % (36.0-47.0); HEMOGLOBIN 11.4 g/dL (12.0-15.5); LYMPH # 1.5 x10^3/uL (1.0-4.8); LYMPH % 26 % (24-48); MEAN CORPUSCULAR HEMOGLOBIN 29 pg (25-35); MEAN CORPUSCULAR HGB CONC 32 g/dL (31-37); MEAN CORPUSCULAR VOLUME 89 fL (79-100); MONO # 0.4 x10^3/uL (0.0-1.1); MONO % 6 % (0-9); NEUT # 3.9 x10^3uL (1.8-7.7); NEUT % 65 % (31-73); PLATELET COUNT 188 x10^3/uL (140-400); RED BLOOD COUNT 3.98 x10^6/uL (3.50-5.40); RED CELL DISTRIBUTION WIDTH 15.8 % (11.5-14.5)
--- NOTE | 2018-11-12 15:53 | RAD ---
PORTABLE CHEST 1V Clinical indications: SHORT OF AIR COMPARISON: August 13, 2018. Findings: No acute lung infiltrate or pleural effusion or pulmonary edema or lung mass or pneumothorax is seen. The heart size, pulmonary vasculature, mediastinum and both christiano are stable. Impression: No acute radiographic abnormality is seen. Electronically signed by: Jewel Westbrook MD (11/12/2018 3:50 PM) [id number]
[2018-11-12 16:10] LABS: ALBUMIN 3.7 g/dL (3.4-5.0); ALBUMIN/GLOBULIN RATIO 0.9 (1.0-1.7); CALCIUM 9.4 mg/dL (8.5-10.1); CREATININE 2.5 mg/dL (0.6-1.0); POTASSIUM 4.3 mmol/L (3.5-5.1); TOTAL BILIRUBIN 0.3 mg/dL (0.2-1.0); TOTAL PROTEIN 7.9 g/dL (6.4-8.2)
[2018-11-12] MEDS ORDERED: ACETAMINOPHEN 325 MG TABLET PO PRN (16:45)
[2018-11-12] MEDS ORDERED: ONDANSETRON PF 4 MG/2 ML VIAL. IV PRN (16:45)
--- NOTE | 2018-11-12 17:24 | EKG ---
[address] [address] Test Date: 2018-11-12 Test Time: 15:20:02 Pat Name: CARINA TREADWELL Department: Room: 115 A Gender: F Grades 9 12 Tutor: : 1930 Requested By: YOVANI CROFT Order Number: [id number] Reading MD: Indra Waller MD Measurements Intervals [place] Rate: 74 P: -90 CA: 84 QRS: -71 QRSD: 214 T: 98 QT: 476 QTc: 535 Interpretive Statements A-V PACED Electronically Signed On 11-14-2018 9:36:28 CDT by Indra Waller MD
[2018-11-12 17:43] VITALS: BP 143/75
[2018-11-12 19:25] VITALS: BP 133/78
[2018-11-12] MEDS ORDERED: IPRATRPIUM/ALBUTEROL 0.5/2.5MG 3 ML NEBU. NEB SCH (20:00)
[2018-11-12] MEDS ORDERED: LIDOCAINE (700MG/PATCH) PATCH. TD PRN (20:30)
[2018-11-12] MEDS ORDERED: MECLIZINE 12.5 MG TABLET. PO PRN (20:30)
[2018-11-12] MEDS ORDERED: NITROGLYCERIN SUBLINGUAL 0.4 MG BOTTLE OF 25. SL PRN (20:30)
[2018-11-12] MEDS ORDERED: ALPRAZolam 0.5 MG TABLET PO PRN (20:30)
[2018-11-12] MEDS ORDERED: DEXTROSE 50% 25 GM / 50ML DISP.SYRIN. IV PRN (20:45)
[2018-11-12] MEDS: INSULIN GLARGINE 300 UNITS/3 ML INSULN.PEN. SQ SCH (21:20)
[2018-11-12] MEDS: APIXABAN 2.5 MG TABLET PO SCH (21:21)
[2018-11-12] MEDS: ATORVASTATIN CALCIUM 10 MG TABLET. PO SCH (21:21)
[2018-11-12] MEDS: SENNOSIDES 8.6 MG TABLET PO SCH (21:22)
[2018-11-12] MEDS: AMIODARONE HCL 200 MG TABLET PO SCH (21:22)
[2018-11-12] MEDS: rOPINIRole 0.25 MG TABLET. PO SCH (21:24)
[2018-11-12] MEDS ORDERED: CIPROFLOXACIN HCL 250 MG TABLET PO SCH (21:30)
[2018-11-12] MEDS ORDERED: TRAZ-120 PO (21:36)
[2018-11-12] MEDS ORDERED: AMLO10TA8 PO (21:36)
[2018-11-12] MEDS ORDERED: CIPR250T PO (21:36)
[2018-11-12] MEDS ORDERED: FURO40TA4 PO (21:36)
[2018-11-12] MEDS: IPRATRPIUM/ALBUTEROL 0.5/2.5MG 3 ML NEBU. NEB SCH (21:53)
[2018-11-12] MEDS: traZODone 50 MG TABLET. PO SCH (21:56)
[2018-11-12] MEDS: CIPROFLOXACIN HCL 250 MG TABLET PO SCH (21:56)
[2018-11-12 22:54] VITALS: BP 108/54
[2018-11-13] VITALS (13 sets, daily range): BP systolic 80–155; BP diastolic 44–75
[2018-11-13] MEDS: ACETAMINOPHEN 325 MG TABLET PO PRN ×3 (03:10→16:49)
[2018-11-13] MEDS: IPRATRPIUM/ALBUTEROL 0.5/2.5MG 3 ML NEBU. NEB SCH ×4 (05:02→20:30)
[2018-11-13 06:43] LABS: BASO % 1 % (0-3); EOS # 0.1 x10^3/uL (0.0-0.7); EOS % 3 % (0-3); HEMATOCRIT 30.2 % (36.0-47.0); HEMOGLOBIN 9.6 g/dL (12.0-15.5); LYMPH # 1.6 x10^3/uL (1.0-4.8); LYMPH % 34 % (24-48); MEAN CORPUSCULAR HEMOGLOBIN 28 pg (25-35); MEAN CORPUSCULAR HGB CONC 32 g/dL (31-37); MEAN CORPUSCULAR VOLUME 88 fL (79-100); MONO # 0.4 x10^3/uL (0.0-1.1); MONO % 9 % (0-9); NEUT # 2.6 x10^3uL (1.8-7.7); NEUT % 54 % (31-73); PLATELET COUNT 161 x10^3/uL (140-400); RED BLOOD COUNT 3.42 x10^6/uL (3.50-5.40); RED CELL DISTRIBUTION WIDTH 15.5 % (11.5-14.5); WHITE BLOOD COUNT 4.8 x10^3/uL (4.0-11.0)
[2018-11-13 07:03] LABS: ALBUMIN/GLOBULIN RATIO 0.9 (1.0-1.7); CALCIUM 8.9 mg/dL (8.5-10.1); CREATININE 2.4 mg/dL (0.6-1.0); GFR 23.1; TOTAL BILIRUBIN 0.3 mg/dL (0.2-1.0); TOTAL PROTEIN 6.4 g/dL (6.4-8.2)
[2018-11-13] MEDS ORDERED: PANTOPRAZOLE 40 MG TABLET. PO SCH (07:30)
[2018-11-13] MEDS: INSULIN LISPRO 300 UNITS/3 ML INSULN.PEN. SQ SCH ×3 (08:00→17:00)
[2018-11-13] MEDS: FUROSEMIDE 40 MG TABLET PO SCH (09:00)
[2018-11-13] MEDS ORDERED: NON FORMULARY ITEM (Dexlansoprazole (Dexilant) 1 CAP) PO SCH (09:00)
[2018-11-13] MEDS: METOPROLOL TART IMMED RELEASE 25 MG TABLET PO SCH (09:00)
[2018-11-13] MEDS ORDERED: LIDOCAINE (700MG/PATCH) PATCH. TD PRN (09:00)
[2018-11-13] MEDS: MAGNESIUM OXIDE 400 MG TABLET PO SCH (09:28)
[2018-11-13] MEDS: CIPROFLOXACIN HCL 250 MG TABLET PO SCH ×2 (09:28→22:28)
[2018-11-13] MEDS: APIXABAN 2.5 MG TABLET PO SCH ×2 (09:28→22:28)
[2018-11-13] MEDS: AMIODARONE HCL 200 MG TABLET PO SCH ×2 (09:29→22:27)
[2018-11-13] MEDS: LACTOBACILLUS RHAMNOSUS GG 1 CAPSULE. PO SCH ×2 (09:30→22:28)
[2018-11-13] MEDS: ASPIRIN ENTERIC COATED 81 MG TABLET.DR. PO SCH (09:30)
[2018-11-13] MEDS: SENNOSIDES 8.6 MG TABLET PO SCH ×2 (09:30→22:27)
[2018-11-13] MEDS: PANTOPRAZOLE 40 MG TABLET. PO SCH (09:32)
--- NOTE | 2018-11-13 13:33 | RAD ---
CT brain without contrast. HISTORY: Headaches, dizziness CT scan of brain was done without contrast. There is possible stenosis at T1 on the first image, MRI or CT of the junction of the skull and cervical spine would be of benefit. There is no intracranial hemorrhage or subdural hematoma. Ventricles are normal in size. There is no mass or shift of the midline. Sinuses are clear. IMPRESSION: 1. Possible stenosis at T1 incompletely evaluated. 2. no intracranial hemorrhage or mass or other acute finding noted. PQRS Compliance Statement: One or more of the following individualized dose reduction techniques were utilized for this examination: 1. Automated exposure control 2. Adjustment of the mA and/or kV according to patient size 3. Use of iterative reconstruction technique Electronically signed by: Anand Tobar MD (11/13/2018 1:30 PM) [facility]
--- NOTE | 2018-11-13 20:01 | HP ---
ADMIT DATE: 11/12/2018 HISTORY OF PRESENT ILLNESS: An 88-year-old female who came in through the Emergency Room with increased shortness of breath, generalized weakness, was also noted she got progressively worse in the last 4 days. The patient has been having increased swelling in her legs and feet; and having difficulty sleeping, lying down. She had marked orthopnea. The patient also notes she had a severe headache. The patient was admitted to the hospital for further evaluation and treatment. At first, the nurses noted her blood pressure to be extremely low on the floor in the 80s. She was transferred to the ICU to keep close monitoring of her blood pressure as well, so we have change in mental status, generalized weakness, severe headache, and hypotension. PAST MEDICAL HISTORY: That of history of stroke, heart attack, angina, CHF, coronary cardiac catheterization, pacemaker placement, internal defibrillator, hypercholesterolemia, DVT, respiratory disorders, pneumonia, oxygen administration, GERD, gallbladder disease, gastroparesis, had surgery of cholecystectomy and appendectomy, renal disease, incontinence, osteoarthritis, orthopedic surgery, bilateral knee and left hip replacements, endocrine disorders, blood disorders, anemia. IMMUNIZATIONS: Up-to-date on INFLUENZA, pneumococcal. FAMILY HISTORY: Diabetes in the mother and sister. Cancer in the mother. Mother also had coronary artery disease, stroke, and heart disease. ALLERGIES: INFLUENZA VACCINES, PENICILLIN, KEFLEX, CLAVULANIC ACID, AUGMENTIN, and METOCLOPRAMIDE OR REGLAN. CODE: The patient is a full code. SOCIAL HISTORY: No smoking, alcohol, or drug use. REVIEW OF SYSTEMS: The patient unable to really give much except the fact that she does not feel good, very weak, she has a headache. She seems to have denied chest pain, but does have marked orthopnea, dyspnea, and shortness of breath. PHYSICAL EXAMINATION: GENERAL: The patient is a pleasant -[place]egalese female in moderate amount of discomfort. VITAL SIGNS: The patient's blood pressure is 80/52, respiratory rate 16, pulse 77, good oxygen saturation, although it varies down to 93%. HEENT: The patient's head was atraumatic, normocephalic. Eyes: PERRLA without jaundice. The mouth and throat show poor dentition. NECK: Supple without JVD, carotid bruits, or thyromegaly. LUNGS: Diminished. Poor movement of air. CARDIOVASCULAR: Regular sinus rhythm, S1, S2. 1/6 systolic ejection murmur. ABDOMEN: Soft, nontender, no rebounding, no guarding. Positive bowel sounds, markedly protuberant. EXTREMITIES: No clubbing or cyanosis, +1 to 2 pitting edema. NEUROLOGIC: The patient was alert, but not able to really give much in the way of expression of any complaints per se. As a result of this, the patient was admitted to the hospital for further evaluation, appeared to be a form of heart failure even though the chest x-ray did not show. ASSESSMENT: She had marked orthopnea, dyspnea, generalized weakness, severe headache, change in mental status. LABORATORY DATA: The patient's BNP is over 900. Creatinine of 2.5, glucose 165. Cardiac enzymes slightly elevated. Blood sugars were also elevated as well. PLAN: The patient will be monitored carefully for her blood pressure fluctuations as well as her other situations of her heart failure and other chronic medical issues. ESTRELLA HARTLEY MD DR: JANENE/deepak JOB#: [id number] / [id number]
[2018-11-13] MEDS: ATORVASTATIN CALCIUM 10 MG TABLET. PO SCH (22:27)
[2018-11-13] MEDS: rOPINIRole 0.25 MG TABLET. PO SCH (22:27)
[2018-11-13] MEDS: traZODone 50 MG TABLET. PO SCH (22:28)
[2018-11-13] MEDS: INSULIN GLARGINE 300 UNITS/3 ML INSULN.PEN. SQ SCH (22:36)
[2018-11-14] VITALS (22 sets, daily range): BP systolic 86–144; BP diastolic 48–71
[2018-11-14] MEDS: IPRATRPIUM/ALBUTEROL 0.5/2.5MG 3 ML NEBU. NEB SCH ×4 (05:11→20:20)
[2018-11-14 07:05] LABS: BASO % 1 % (0-3); EOS # 0.1 x10^3/uL (0.0-0.7); EOS % 2 % (0-3); HEMATOCRIT 29.3 % (36.0-47.0); HEMOGLOBIN 9.4 g/dL (12.0-15.5); LYMPH # 1.7 x10^3/uL (1.0-4.8); LYMPH % 35 % (24-48); MEAN CORPUSCULAR HEMOGLOBIN 29 pg (25-35); MEAN CORPUSCULAR HGB CONC 32 g/dL (31-37); MEAN CORPUSCULAR VOLUME 89 fL (79-100); MONO # 0.4 x10^3/uL (0.0-1.1); MONO % 8 % (0-9); NEUT # 2.6 x10^3uL (1.8-7.7); NEUT % 55 % (31-73); PLATELET COUNT 156 x10^3/uL (140-400); RED BLOOD COUNT 3.31 x10^6/uL (3.50-5.40); RED CELL DISTRIBUTION WIDTH 15.5 % (11.5-14.5); WHITE BLOOD COUNT 4.8 x10^3/uL (4.0-11.0)
[2018-11-14 07:12] LABS: CALCIUM 8.9 mg/dL (8.5-10.1); CREATININE 2.3 mg/dL (0.6-1.0); GFR 24.2; POTASSIUM 4.2 mmol/L (3.5-5.1)
[2018-11-14] MEDS: INSULIN LISPRO 300 UNITS/3 ML INSULN.PEN. SQ SCH ×3 (07:59→17:33)
[2018-11-14] MEDS: PANTOPRAZOLE 40 MG TABLET. PO SCH (08:05)
[2018-11-14] MEDS: ASPIRIN ENTERIC COATED 81 MG TABLET.DR. PO SCH (08:05)
[2018-11-14] MEDS: APIXABAN 2.5 MG TABLET PO SCH ×2 (08:55→22:15)
[2018-11-14] MEDS: LACTOBACILLUS RHAMNOSUS GG 1 CAPSULE. PO SCH ×2 (08:55→22:14)
[2018-11-14] MEDS: MAGNESIUM OXIDE 400 MG TABLET PO SCH (08:55)
[2018-11-14] MEDS: FUROSEMIDE 40 MG TABLET PO SCH (08:56)
[2018-11-14] MEDS: AMIODARONE HCL 200 MG TABLET PO SCH ×2 (08:56→22:14)
[2018-11-14] MEDS: CIPROFLOXACIN HCL 250 MG TABLET PO SCH ×2 (08:56→22:15)
[2018-11-14] MEDS: METOPROLOL TART IMMED RELEASE 25 MG TABLET PO SCH (08:58)
[2018-11-14] MEDS: SENNOSIDES 8.6 MG TABLET PO SCH ×2 (09:00→22:15)
--- NOTE | 2018-11-14 09:44 | PDOC ---
PROVIDER NOTE PROVIDER NOTE PROVIDER NOTE CARDIOLOGY CONSULTATION NOTE: Reason for consultation: ANITRA HPI: 88 y.o woman w/ known CAD presents with chest pain. She was here for similar episode 6 months ago. She follows with Dr. Vargas. She apparently takes NTG frequently and has done so for several years. It appears that due to pain not resolving with NTG, she was anxious and sought medical care. At home she says that she shops and does things around the house with help. No syncope, palpitations, nausea, vomiting, diarrhea, fevers, chills or other acute issues. Compliant with meds. Pmhx: 1. CAD s/p 2 stents per patient. 2. HTN 3. Pulmonary HTN (Echo last year with RVSP of 71, Normal EF) 4. PAF on anticoagulation with eliquis and amiodarone for rhythm control 5. SSS s/p dual chamber pacer. 6. CKD Sochx: No alcohol, tob or illicits. ALL: Multiple see chart Current CV meds: Amiodarone, eliquis, lasix, asa, metoprolol and atorvastatin. ROS: as above. Physical Exam: VSS normal cardiac exam bilateral end exp wheezes soft abd no edema. no focal neuro deficits. no significant carotid bruits, neck veins flat. Diagnostic studies: EKG a-v paced CXR unremarkable Trop negative. Impression: 1. Chest pain - features of typical and atypical pain. With her history, she certainly could have small vessel disease. Her BP appears well controlled. Plan: 1. No further med changes at this time, would favor f/u with Dr. Dunn to discuss options for treatment (Cath versus nitrates etc). Given her EKG is stable, enzymes negative with improvement in pain, ok to DC with close f/u with Dr. Dunn. 2. Consider ranexa for chest pain as due to her low BP, imdur would be hard to start. Thanks. DANIELLE JONES MD Nov 14, 2018 09:44
[2018-11-14] MEDS: ACETAMINOPHEN 325 MG TABLET PO PRN ×2 (12:55→22:22)
--- NOTE | 2018-11-14 14:04 | DS ---
DATE OF DISCHARGE: 11/14/2018 HOSPITAL COURSE: An 88-year-old female, pleasant -Cym[place] female, came in to the Emergency Room, she was having problems with shortness of breath, generalized weakness for the last 3-4 days. She had some increased swelling in her legs, difficulty sleeping, lying down. The patient was seen by Cardiology. They did not feel the patient had any obvious signs of heart failure. Chest x-ray was negative. The patient's chemistries slight anemia, chronic kidney disease stage . Blood sugars of course were elevated. She is a diabetic. She is taking insulin. The patient also described while she was here some trouble swallowing and she should be seen by her table machine operator per primary for stretching of her esophagus and further swallowing test there. Otherwise, the patient made excellent progress. She complained of a severe headache. We got a CAT scan of her head and for a woman her age, I looked pretty darn good. In any case, the patient will be discharged home. Follow up with her primary. She will be on a soft diet for now easier to swallow and follow up along with her primary as indicated for a possible GI consult. 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 Follow up on her chronic headaches. See MRAD. Decreased activity. Plan as above there. ESTRELLA HARTLEY MD DR: JANENE/deepak JOB#: [id number] / [id number]
[2018-11-14] MEDS: traZODone 50 MG TABLET. PO SCH (22:14)
[2018-11-14] MEDS: ATORVASTATIN CALCIUM 10 MG TABLET. PO SCH (22:14)
[2018-11-14] MEDS: INSULIN GLARGINE 300 UNITS/3 ML INSULN.PEN. SQ SCH (22:15)
[2018-11-14] MEDS: rOPINIRole 0.25 MG TABLET. PO SCH (22:16)
[2018-11-15] VITALS (11 sets, daily range): BP systolic 103–132; BP diastolic 47–72
[2018-11-15] MEDS: IPRATRPIUM/ALBUTEROL 0.5/2.5MG 3 ML NEBU. NEB SCH ×4 (04:38→20:25)
[2018-11-15] MEDS: INSULIN LISPRO 300 UNITS/3 ML INSULN.PEN. SQ SCH ×3 (08:00→17:33)
[2018-11-15] MEDS: LACTOBACILLUS RHAMNOSUS GG 1 CAPSULE. PO SCH ×2 (08:18→20:40)
[2018-11-15] MEDS: METOPROLOL TART IMMED RELEASE 25 MG TABLET PO SCH (08:19)
[2018-11-15] MEDS: ASPIRIN ENTERIC COATED 81 MG TABLET.DR. PO SCH (08:20)
[2018-11-15] MEDS: MAGNESIUM OXIDE 400 MG TABLET PO SCH (08:20)
[2018-11-15] MEDS: PANTOPRAZOLE 40 MG TABLET. PO SCH (08:20)
[2018-11-15] MEDS: APIXABAN 2.5 MG TABLET PO SCH ×2 (08:20→20:40)
[2018-11-15] MEDS: FUROSEMIDE 40 MG TABLET PO SCH (08:20)
[2018-11-15] MEDS: AMIODARONE HCL 200 MG TABLET PO SCH ×2 (08:20→20:41)
[2018-11-15] MEDS: CIPROFLOXACIN HCL 250 MG TABLET PO SCH ×2 (08:20→20:40)
[2018-11-15] MEDS: SENNOSIDES 8.6 MG TABLET PO SCH ×2 (08:20→20:40)
[2018-11-15] MEDS: ACETAMINOPHEN 325 MG TABLET PO PRN (08:37)
[2018-11-15] MEDS ORDERED: NYSTATIN TOPICAL POWDER 15GM BOTTLE. TP SCH (09:00)
--- NOTE | 2018-11-15 09:30 | PDOC ---
PROGRESS NOTES Diagnosis Problem Problems Medical Problems: (1) Chest pain Status: Acute Assessment Problems Medical Problems: (1) Chest pain Status: Acute 1. Chest pain - MT ruled out. No further pain. Continue current medications. 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 CAD s/p prior PCI/stenting - continue aspirin, beta juarez and statin. NTG PRN. Consider add Ranexa if reoccurs. 2. HTN - controlled on current therapy. 3. Pulmonary HTN (Echo last year with RVSP of 71, Normal EF) 4. PAF on anticoagulation with eliquis and amiodarone for rhythm control 5. SSS s/p dual chamber pacer - device interrogation today. 6. CKD stage IV - Cr appears stable Subjective feeling much better, no dyspnea, no chest pain, no palpitations. Objective Vital Signs Date Time Temp Pulse Resp B/P (MAP) Pulse Ox O2 Delivery O2 Flow Rate FiO2 11/15/18 08:20 126/77 11/15/18 07:06 98.2 11/15/18 06:00 60 16 97 Room Air Intake and Output 11/15/18 06:59 Intake Total 1200 ml Balance 1200 ml Intake Oral 1200 ml # Voids 7 Physical Exam gen: awake alert and No acute distress CV: RRR, no S3S4, no clicks or rubs Lungs: decreased bases, otherwise clear abd: soft non tender, bowel sounds present ext: trace bilateral edema Review of Relevant I have reviewed the following items alisha (where applicable) has been applied. Labs Laboratory Tests Test 11/13/18 11:33 11/13/18 12:14 11/13/18 16:47 11/13/18 21:03 Nasal Screen MRSA (PCR) Negative (Negative) Glucose (Fingerstick) 132 mg/dL (70-99) 142 mg/dL (70-99) 127 mg/dL (70-99) Test 11/14/18 06:48 11/14/18 07:56 11/14/18 09:41 11/14/18 12:06 White Blood Count 4.8 x10^3/uL (4.0-11.0) Red Blood Count 3.31 x10^6/uL (3.50-5.40) Hemoglobin 9.4 g/dL (12.0-15.5) Hematocrit 29.3 % (36.0-47.0) Mean Corpuscular Volume 89 fL (79-100) Mean Corpuscular Hemoglobin 29 pg (25-35) Mean Corpuscular Hemoglobin Concent 32 g/dL (31-37) Red Cell Distribution Width 15.5 % (11.5-14.5) Platelet Count 156 x10^3/uL (140-400) Neutrophils (%) (Auto) 55 % (31-73) Lymphocytes (%) (Auto) 35 % (24-48) Monocytes (%) (Auto) 8 % (0-9) Eosinophils (%) (Auto) 2 % (0-3) Basophils (%) (Auto) 1 % (0-3) Neutrophils # (Auto) 2.6 x10^3uL (1.8-7.7) Lymphocytes # (Auto) 1.7 x10^3/uL (1.0-4.8) Monocytes # (Auto) 0.4 x10^3/uL (0.0-1.1) Eosinophils # (Auto) 0.1 x10^3/uL (0.0-0.7) Basophils # (Auto) 0.0 x10^3/uL (0.0-0.2) Sodium Level 142 mmol/L (136-145) Potassium Level 4.2 mmol/L (3.5-5.1) Chloride Level 106 mmol/L (98-107) Carbon Dioxide Level 29 mmol/L (21-32) Anion Gap 7 (6-14) Blood Urea Nitrogen 29 mg/dL (7-20) Creatinine 2.3 mg/dL (0.6-1.0) Estimated GFR (Cockcroft-Gault) 24.2 Glucose Level 68 mg/dL (70-99) Calcium Level 8.9 mg/dL (8.5-10.1) Glucose (Fingerstick) 59 mg/dL (70-99) 178 mg/dL (70-99) 148 mg/dL (70-99) Test 11/14/18 16:57 11/14/18 20:15 11/15/18 07:54 Glucose (Fingerstick) 156 mg/dL (70-99) 172 mg/dL (70-99) 71 mg/dL (70-99) Medications Current Medications Aspirin (Children'S Aspirin) 324 mg 1X ONCE PO Last administered on 11/12/18at 15:45; Start 11/12/18 at 15:45; Stop 11/13/18 at 09:47; Status DC Ondansetron HCl (Zofran) 4 mg PRN Q4HRS PRN IV NAUSEA/VOMITING; Start 11/12/18 at 16:45; Stop 11/13/18 at 16:44; Status DC Acetaminophen (Tylenol) 650 mg PRN Q4HRS PRN PO FEVER; Start 11/12/18 at 16:45 ; Stop 11/12/18 at 20:40; Status DC Albuterol/ Ipratropium (Duoneb) 3 ml RTQID NEB ; Start 11/12/18 at 20:00; Stop 11/12/18 at 21:42; Status DC Acetaminophen (Tylenol) 650 mg PRN Q6HRS PRN PO PAIN Last administered on 08:37; Start 11/12/18 at 20:30 Apixaban (Eliquis) 2.5 mg BID PO Last administered on 11/15/18 08:20; Start at 21:00 Albuterol/ Ipratropium (Duoneb) 3 ml QID NEB Last administered on 11/15/18 04: 38; Start 11/12/18 at 21:00 Metoprolol Tartrate (Lopressor) 12.5 mg DAILY PO Last administered on 08:19; Start 11/13/18 at 09:00 Nitroglycerin (Nitrostat) 0.4 mg PRN Q5MIN PRN SL CHEST PAIN; Start 11/12/18 at 20:30 Alprazolam (Xanax) 0.5 mg PRN Q8HRS PRN PO ANXIETY / AGITATION; Start 11/12/18 at 20:30 Amiodarone HCl (Cordarone) 200 mg BID PO Last administered on 11/15/18 08:20; Start 11/12/18 at 21:00 Aspirin (Aspirin Enteric Coated) 81 mg DAILYWBKFT PO Last administered on 08:20; Start 11/13/18 at 08:00 Atorvastatin Calcium (Lipitor) 10 mg QHS PO Last administered on 11/14/18at 22: 14; Start 11/12/18 at 21:00 Vitamin D (Vitamin D3) 50,000 unit QWE PO ; Start 11/17/18 at 16:00 Insulin Glargine (Lantus) 16 units QHS SQ Last administered on 11/14/18at 22:15 ; Start 11/12/18 at 21:00 Lidocaine (Lidoderm) 1 patch PRN DAILY PRN TD PAIN; Start 11/13/18 at 09:00 Magnesium Oxide (Magnesium Oxide) 800 mg DAILY PO Last administered on at 08:20; Start 11/13/18 at 09:00 Meclizine HCl (Antivert) 25 mg PRN Q6HRS PRN PO DIZZINESS; Start 11/12/18 at 20 :30 Pantoprazole Sodium (Protonix) 40 mg DAILYAC PO ; Start 11/13/18 at 07:30; Stop 11/13/18 at 07:30; Status DC Ropinirole HCl (Requip) 0.25 mg HS PO Last administered on 11/14/18 22:16; Start 11/12/18 at 21:00 Sennosides (Senna) 8.6 mg BID PO Last administered on 11/15/18 08:20; Start at 21:00 Pantoprazole Sodium (Protonix) 40 mg DAILYAC PO Last administered on 11/15/18 08:20; Start 11/13/18 at 07:30 Non-Formulary Medication (Dexlansoprazole (Dexilant)) 1 cap DAILY PO ; Start at 09:00; Stop 11/13/18 at 09:00; Status DC Lidocaine (Lidoderm) 1 patch DAILY PRN TD PAIN; Start 11/12/18 at 20:30; Stop 11/12/18 at 20:37; Status DC Insulin Human Lispro (HumaLOG) 0-7 UNITS TIDWMEALS SQ Last administered on 11/14at 17:33; Start 11/13/18 at 08:00 Dextrose 12.5 gm PRN Q15MIN PRN IV SEE COMMENTS; Start 11/12/18 at 20:45 Ciprofloxacin (Cipro) 250 mg QHS PO ; Start 11/12/18 at 21:30; Stop 11/12/18 at 21:49; Status DC Furosemide (Lasix) 40 mg DAILY PO Last administered on 11/15/18at 08:20; Start 11/13/18 at 09:00 Trazodone HCl (Desyrel) 50 mg QHS PO Last administered on 11/14/18at 22:14; Start 11/12/18 at 21:45 Lactobacillus Rhamnosus (Culturelle) 1 cap BID PO Last administered on at 08:18; Start 11/13/18 at 09:00 Ciprofloxacin (Cipro) 250 mg BID PO Last administered on 11/15/18at 08:20; Start 11/12/18 at 22:00 Nystatin (Nystop) 1 lucio BID TP ; Start 11/15/18 at 09:00; Stop 11/15/18 at 09:16 ; Status DC Active Scripts Active Reported Trazodone Hcl 50 Mg Tablet 50 Mg PO HS Furosemide 40 Mg Tablet 40 Mg PO DAILY Ciprofloxacin Hcl 250 Mg Tablet 250 Mg PO BID Senokot (Sennosides) 8.6 Mg Tablet 8.6 Mg PO BID Duoneb 0.5-3(2.5) Mg/3 Ml (Albuterol/Ipratropium) 3 Ml Ampul.neb 3 Ml NEB QID Lidocaine 1 Each Adh..patch 1 Each TP PRN DAILY PRN Humalog Kwikpen (Insulin Lispro) Unknown Strength Insuln.pen Unknown Dose SQ TIDAC Meclizine Hcl 25 Mg Tablet 1 Tab PO PRN TID PRN Toujeo Solostar (Insulin Glargine,Hum.rec.anlog) 300 Unit/1 Ml Insuln.pen 20 Unit SQ HS Dexilant (Dexlansoprazole) 60 Mg Joel.mp 1 Cap PO DAILY Vitamin D3 (Cholecalciferol (Vitamin D3)) 5,000 Unit Tablet 1 Tab PO QWE Atorvastatin Calcium 10 Mg Tablet 1 Tab PO HS Eliquis (Apixaban) 2.5 Mg Tablet 2.5 Mg PO BID Amiodarone Hcl 200 Mg Tablet 1 Tab PO BID Metoprolol Tartrate 25 Mg Tablet 0.5 Tab PO DAILY LAST DOSE GIVEN: DATE:TODAY TIME:MORNING NEXT DOSE DUE: DATE:TOMORROW TIME:MORNING Requip (Ropinirole Hcl) 0.5 Mg Tablet 0.25 Mg PO QHS LAST DOSE GIVEN: DATE: YESTERDAY TIME: AT BEDTIME NEXT DOSE DUE: DATE: TODAY TIME: AT BEDTIME Protonix (Pantoprazole Sodium) 40 Mg Tablet.dr 1 Tab PO DAILY LAST DOSE GIVEN: DATE: TODAY TIME: BEFORE BREAKFAST NEXT DOSE DUE: DATE: TOMORROW TIME: BEFORE BREAKFAST Aspirin 81 Mg Tab.chew 81 Mg PO DAILY LAST DOSE GIVEN: DATE: TODAY TIME: AM NEXT DOSE DUE: DATE: TOMORROW TIME: AM Tylenol (Acetaminophen) 325 Mg Tablet 2 Tab PO PRN Q6HRS PRN NOT GIVEN TODAY NEXT DOSE DUE: DATE: TODAY TIME: IF AND WHEN NEEDED Magnesium Oxide 400 Mg Tablet 800 Mg PO DAILY LAST DOSE GIVEN: DATE: TODAY TIME: AM NEXT DOSE DUE: DATE: TOMORROW TIME: AM NITROGLYCERIN SubLingual (Nitroglycerin) 0.4 Mg Tab.subl 0.4 Mg SL PRN Q5MIN PRN NOT GIVEN TODAY NEXT DOSE DUE: DATE: TODAY TIME: IF AND WHEN NEEDED Xanax (Alprazolam) 0.25 Mg Tablet 0.5 Mg PO PRN TID PRN NOT GIVEN TODAY NEXT DOSE DUE: DATE: TODAY TIME: IF AND WHEN NEEDED Vitals/I & O Vital Sign - Last 24 Hours 11/14/18 11/14/18 11/14/18 11/14/18 09:57 11:01 12:00 12:00 Pulse 72 77 Resp 16 18 B/P (MAP) 123/55 (77) 127/64 (85) Pulse Ox 96 99 99 O2 Delivery Room Air Room Air Room Air Room Air 11/14/18 11/14/18 11/14/18 11/14/18 13:00 14:00 15:00 15:15 Pulse 69 60 70 Resp 18 18 18 B/P (MAP) 121/59 (79) 114/53 (73) 124/71 (88) Pulse Ox 99 97 98 100 O2 Delivery Room Air Room Air Room Air Room Air 11/14/18 11/14/18 11/14/18 11/14/18 16:00 16:00 17:00 18:52 Pulse 72 75 69 Resp 18 18 18 B/P (MAP) 137/67 (90) 129/61 (83) 86/49 (61) Pulse Ox 97 97 100 O2 Delivery Room Air Room Air Room Air Room Air 11/14/18 11/14/18 11/14/18 11/14/18 19:00 20:00 20:00 20:21 Temp 98.4 Pulse 74 71 Resp 18 B/P (MAP) 109/55 (73) 126/59 (81) Pulse Ox 99 100 99 O2 Delivery Room Air Room Air Room Air Room Air 11/14/18 11/14/18 11/14/18 11/14/18 21:00 22:00 22:14 23:20 Temp 97.4 Pulse 73 77 73 69 Resp 16 16 B/P (MAP) 132/66 (88) 131/58 (82) 132/66 144/67 (92) Pulse Ox 98 98 99 O2 Delivery Room Air Room Air Room Air 11/15/18 11/15/18 11/15/18 11/15/18 00:01 00:15 01:00 02:00 Pulse 74 60 68 Resp 16 16 16 B/P (MAP) 110/51 (70) 109/52 (71) 127/47 (73) Pulse Ox 98 98 97 O2 Delivery Room Air Room Air Room Air Room Air 11/15/18 11/15/18 11/15/18 11/15/18 03:00 04:00 04:30 04:39 Pulse 74 76 Resp 16 16 B/P (MAP) 113/50 (71) 129/58 (81) Pulse Ox 98 98 100 O2 Delivery Room Air Room Air Room Air Room Air 11/15/18 11/15/18 11/15/18 11/15/18 05:00 06:00 07:06 08:19 Temp 98.2 Pulse 68 60 Resp 16 16 B/P (MAP) 103/59 (74) 116/47 (70) 126/74 Pulse Ox 98 97 O2 Delivery Room Air Room Air 11/15/18 08:20 B/P (MAP) 126/77 Intake and Output 11/14/18 11/14/18 11/15/18 14:59 22:59 06:59 Intake Total 720 ml 240 ml 240 ml Balance 720 ml 240 ml 240 ml 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
[2018-11-15] MEDS: ATORVASTATIN CALCIUM 10 MG TABLET. PO SCH (20:40)
[2018-11-15] MEDS: rOPINIRole 0.25 MG TABLET. PO SCH (20:40)
[2018-11-15] MEDS: traZODone 50 MG TABLET. PO SCH (20:40)
[2018-11-15] MEDS: INSULIN GLARGINE 300 UNITS/3 ML INSULN.PEN. SQ SCH (20:49)
[2018-11-15] MEDS ORDERED: SERTRALINE 25 MG TABLET. PO SCH (21:00)
--- NOTE | 2018-11-15 21:03 | PN ---
DATE: 11/15/2018 SUBJECTIVE: The patient is sitting comfortably in her chair, in no apparent respiratory distress. She apparently came with chest pain and was seen in consultation by the Cardiology team, typical and atypical. She had had 3 sets of cardiac enzymes; however, myocardial infarction had ruled out. She was evaluated by the Cardiology team and no further ischemic workup was recommended and the recommendation was to interrogate her pacemaker and to follow up with her primary sanitation truck cleaner in next 1-2 weeks. PHYSICAL EXAMINATION: GENERAL: When I examined her, she looked well and was clearly in no apparent respiratory distress, slightly pale, but no jaundice or cyanosis. No lymphadenopathy, no thyromegaly. No jugular venous distension. No lower limb edema. VITAL SIGNS: Her heart rate was 72, blood pressure was 131/64, temperature was 98.2, respiratory rate was 16, and oxygen saturation was 97%. HEAD, EYES, EARS, NOSE AND THROAT: Showed normocephalic, atraumatic. NECK: Supple. HEART: Showed normal first and second heart sounds with no gallop, rub or murmur. CHEST: Clear to auscultation. No crepitation or rhonchi. ABDOMEN: Distended, soft, nontender. NEUROLOGIC: She was awake, alert, responding appropriately. All cranial nerves intact. She moves extremities without difficulty. She ambulates with a walker. Her intake over the last 24 hours was 890, and output was 275. LABORATORY DATA: As of yesterday, her serum sodium was 142, potassium 4.2, chloride 106, bicarbonate 29, anion gap of 7, BUN 29, creatinine 2.3, estimated GFR was 24 mL per minute. Her glucose was 68, calcium was 8.9, blood glucose was 59. Her white cell count was 4800, hemoglobin 9.4, hematocrit 29.3, MCV 89 and platelet count of 156,000. Her prothrombin time and INR are within normal range. ASSESSMENT: 1. Chest pain, myocardial infarction ruled out. The patient has no further complaint of pain and Cardiology did not recommend any further ischemic workup. 2. Coronary artery disease, status post prior percutaneous coronary intervention with stenting. 3. Hypertension, seems to be well controlled. 4. Pulmonary hypertension. 5. Paroxysmal atrial fibrillation, rate controlled, well anticoagulated, on Eliquis and amiodarone. 6. Sick sinus syndrome, status post dual chamber pacemaker device interrogation is recommended today. 7. Chronic kidney disease, stage 4 with stable creatinine. She also has a chronic normochromic normocytic anemia that is generally stable. 8. Type 2 diabetes mellitus for which she is on Humalog insulin as insulin sliding scale as well as Lantus insulin 16 units at bedtime. JAMES MULTANI MD DR: ESTEPHANIA/deepak JOB#: [id number] / [id number]
[2018-11-16 00:01] VITALS: BP 138/81
--- NOTE | 2018-11-16 00:47 | PSYEV ---
DATE OF SERVICE: 11/15/2018 REASON FOR CONSULTATION: This 88-year-old -[place] female who was admitted to ICU with history of shortness of breath, generalized weakness, and also severe headaches. 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 The CT scan of the head showed that she has P1 stenosis. The patient states headache has been a problem for her, which comes and goes, sometimes very severe, sometimes she is able to manage with medications. The patient stated she has lot of anxiety about taking narcotics, does not want to be on hydrocodone. HISTORY OF PRESENT ILLNESS: The patient states she has been dealing with some issues within the family. Apparently, she brought one of her sons from [place] to be with her and patient's children, 8 of them, they all involved and they all also want to take care of her. The patient admits lately she has been having increased anxiety, also worried about what is going on with her physically and also if she is at home, then she is not going to agree to any kind of invasive procedures to the brain. She prefers to talk about her options, not committing to any kind of invasive procedures if there was something serious was going on in her head. The patient denies of having any problems with the depression, but staff reports that the daughter stated that she has been crying at home, having mood swings, also depressed. PAST MEDICAL HISTORY: The patient has history of CVA, history of MS, angina, CHF. Also, she had a cardiac catheterization, pacemaker replacement, also has an internal defibrillator. The patient also has GERD, history of DVT, also gastroparesis and chronic pain secondary to osteoarthritis, also anemic. PSYCHOSOCIAL HISTORY: The patient does not drink or smoke. The patient is currently living in their own home, her son is living with her. The patient states she was and about 8 years ago. The patient states she had a good life and she finished high school, then she started working for [employer]. 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 The patient denies of any major trauma in her past. FAMILY HISTORY: Noncontributory. MENTAL STATUS EXAMINATION: The patient appeared to be of her stated age, appropriately dressed, able to relate fairly well. She was alert, oriented and able to make eye contact. Her speech was clear, spontaneous with normal rate and rhythm. Affect and mood showed she is not depressed. She is anxious and concerned about living at home with the son and also other children making decisions for her. The patient denies of having any suicidal or homicidal thoughts. The patient states she never had any problems with depression in the past and no treatment. The patient was oriented to time, place and person. Her memory is intact for both past and present. Judgment intact. Insight fair. STRENGTH: In good health for age. Supportive family. The patient is still cognitively intact, able to make decisions. WEAKNESSES: The patient is currently struggling with situation at home making choices about whether she has to live at home or somebody has to take care of her and also the chronic headaches that she is concerned about. DIAGNOSTIC IMPRESSION: AXIS I: Adjustment disorder with anxious and depressed mood. AXIS II: None. AXIS III: Chronic headaches and chronic pain secondary to osteoarthritis. OTHER DIAGNOSIS: As per Dr. Mora. RECOMMENDATIONS: The patient was advised to talk to her primary care doctor if the problem continues to worsen and if she has to take an antidepressant, but has to be decided at a later point since the patient currently not exhibiting any symptoms to indicate that she needs to be on antidepressant taking her age into consideration. The patient needs to go on an antidepressant. She may start with Zoloft 25 mg at night, but can be increased to 50 mg at night. The patient is hemodynamically stable. The patient is currently not exhibiting any suicidal or homicidal thoughts. SHILPI HARRIS MD DR: ALPESH/deepak JOB#: [id number] / [id number]
[2018-11-16 04:00] VITALS: BP 144/58
[2018-11-16] MEDS: IPRATRPIUM/ALBUTEROL 0.5/2.5MG 3 ML NEBU. NEB SCH ×2 (05:16→10:36)
[2018-11-16] MEDS: INSULIN LISPRO 300 UNITS/3 ML INSULN.PEN. SQ SCH (08:00)
[2018-11-16] MEDS: MAGNESIUM OXIDE 400 MG TABLET PO SCH (08:09)
[2018-11-16] MEDS: ASPIRIN ENTERIC COATED 81 MG TABLET.DR. PO SCH (08:09)
[2018-11-16] MEDS: PANTOPRAZOLE 40 MG TABLET. PO SCH (08:09)
[2018-11-16] MEDS: LACTOBACILLUS RHAMNOSUS GG 1 CAPSULE. PO SCH (08:09)
[2018-11-16] MEDS: APIXABAN 2.5 MG TABLET PO SCH (08:10)
[2018-11-16] MEDS: CIPROFLOXACIN HCL 250 MG TABLET PO SCH (08:10)
[2018-11-16] MEDS: AMIODARONE HCL 200 MG TABLET PO SCH (08:11)
[2018-11-16] MEDS: METOPROLOL TART IMMED RELEASE 25 MG TABLET PO SCH (08:11)
[2018-11-16] MEDS: FUROSEMIDE 40 MG TABLET PO SCH (08:11)
[2018-11-16] MEDS: SENNOSIDES 8.6 MG TABLET PO SCH (08:11)
[2018-11-16] MEDS ORDERED: SERT25TA PO (09:32)
--- NOTE | 2018-11-16 10:16 | PDOC ---
PROGRESS NOTES Diagnosis Problem Problems Medical Problems: (1) Chest pain Status: Acute Assessment Problems Medical Problems: (1) Chest pain Status: Acute 1. Chest pain - UT ruled out. No further pain. Continue current medications. NItrates as needed. Suggest follow up with primary parachute [employer] in the next 1- 2 weeks 2. CAD s/p prior PCI/stenting - continue aspirin, beta juarez and statin. NTG PRN. 2. HTN - controlled on current therapy. 3. Pulmonary HTN (Echo last year with RVSP of 71, Normal EF) 4. PAF on anticoagulation with eliquis and amiodarone for rhythm control Device check reveals paf with last episode in Sep, early october. No recent episodes. 5. SSS s/p dual chamber pacer - device interrogated yesterday. appropriate function. 6. CKD stage IV - Cr appears stable Subjective feeling much better, no chest pain, breathing easy, "ready to go home", plans to follow up with Dr Dunn in the next couple weeks. Objective Vital Signs Date Time Temp Pulse Resp B/P (MAP) Pulse Ox O2 Delivery O2 Flow Rate FiO2 11/16/18 08:11 88 11/16/18 08:00 Room Air 11/16/18 05:16 99 11/16/18 04:00 18 144/58 (86) 11/16/18 00:01 98.6 Intake and Output 11/16/18 06:59 Intake Total 1295 ml Output Total 125 ml Balance 1170 ml Intake Oral 1295 ml Output Urine Total 125 ml # Voids 6 Physical Exam gen: awake, alert, NAD, CV : RRR no gallops clicks or rubs Lungs: decreased bases, no crackles, rhonchi or wheezing abd: soft nontender, +bowel sounds ext: trace edema Review of Relevant I have reviewed the following items alisha (where applicable) has been applied. Labs Laboratory Tests Test 11/14/18 12:06 11/14/18 16:57 11/14/18 20:15 11/15/18 07:54 Glucose (Fingerstick) 148 mg/dL (70-99) 156 mg/dL (70-99) 172 mg/dL (70-99) 71 mg/dL (70-99) Test 11/15/18 11:23 11/15/18 16:28 11/16/18 05:46 11/16/18 07:56 Glucose (Fingerstick) 113 mg/dL (70-99) 205 mg/dL (70-99) 64 mg/dL (70-99) 98 mg/dL (70-99) Medications Current Medications Aspirin (Children'S Aspirin) 324 mg 1X ONCE PO Last administered on 11/12/18at 15:45; Start 11/12/18 at 15:45; Stop 11/13/18 at 09:47; Status DC Ondansetron HCl (Zofran) 4 mg PRN Q4HRS PRN IV NAUSEA/VOMITING; Start 11/12/18 at 16:45; Stop 11/13/18 at 16:44; Status DC Acetaminophen (Tylenol) 650 mg PRN Q4HRS PRN PO FEVER; Start 11/12/18 at 16:45 ; Stop 11/12/18 at 20:40; Status DC Albuterol/ Ipratropium (Duoneb) 3 ml RTQID NEB ; Start 11/12/18 at 20:00; Stop 11/12/18 at 21:42; Status DC Acetaminophen (Tylenol) 650 mg PRN Q6HRS PRN PO PAIN Last administered on at 08:37; Start 11/12/18 at 20:30 Apixaban (Eliquis) 2.5 mg BID PO Last administered on 11/16/18at 08:10; Start at 21:00 Albuterol/ Ipratropium (Duoneb) 3 ml QID NEB Last administered on 11/16/18at 05: 16; Start 11/12/18 at 21:00 Metoprolol Tartrate (Lopressor) 12.5 mg DAILY PO Last administered on at 08:11; Start 11/13/18 at 09:00 Nitroglycerin (Nitrostat) 0.4 mg PRN Q5MIN PRN SL CHEST PAIN; Start 11/12/18 at 20:30 Alprazolam (Xanax) 0.5 mg PRN Q8HRS PRN PO ANXIETY / AGITATION; Start 11/12/18 at 20:30 Amiodarone HCl (Cordarone) 200 mg BID PO Last administered on 11/16/18at 08:11; Start 11/12/18 at 21:00 Aspirin (Aspirin Enteric Coated) 81 mg DAILYWBKFT PO Last administered on 08:09; Start 11/13/18 at 08:00 Atorvastatin Calcium (Lipitor) 10 mg QHS PO Last administered on 11/15/18at 20: 40; Start 11/12/18 at 21:00 Vitamin D (Vitamin D3) 50,000 unit QWE PO ; Start 11/17/18 at 16:00 Insulin Glargine (Lantus) 16 units QHS SQ Last administered on 11/15/18 20:49 ; Start 11/12/18 at 21:00 Lidocaine (Lidoderm) 1 patch PRN DAILY PRN TD PAIN; Start 11/13/18 at 09:00 Magnesium Oxide (Magnesium Oxide) 800 mg DAILY PO Last administered on 08:09; Start 11/13/18 at 09:00 Meclizine HCl (Antivert) 25 mg PRN Q6HRS PRN PO DIZZINESS; Start 11/12/18 at 20 :30 Pantoprazole Sodium (Protonix) 40 mg DAILYAC PO ; Start 11/13/18 at 07:30; Stop 11/13/18 at 07:30; Status DC Ropinirole HCl (Requip) 0.25 mg HS PO Last administered on 11/15/18 20:40; Start 11/12/18 at 21:00 Sennosides (Senna) 8.6 mg BID PO Last administered on 11/16/18 08:11; Start at 21:00 Pantoprazole Sodium (Protonix) 40 mg DAILYAC PO Last administered on 11/16/18 08:09; Start 11/13/18 at 07:30 Non-Formulary Medication (Dexlansoprazole (Dexilant)) 1 cap DAILY PO ; Start at 09:00; Stop 11/13/18 at 09:00; Status DC Lidocaine (Lidoderm) 1 patch DAILY PRN TD PAIN; Start 11/12/18 at 20:30; Stop 11/12/18 at 20:37; Status DC Insulin Human Lispro (HumaLOG) 0-7 UNITS TIDWMEALS SQ Last administered on 11/15 17:33; Start 11/13/18 at 08:00 Dextrose 12.5 gm PRN Q15MIN PRN IV SEE COMMENTS; Start 11/12/18 at 20:45 Ciprofloxacin (Cipro) 250 mg QHS PO ; Start 11/12/18 at 21:30; Stop 11/12/18 at 21:49; Status DC Furosemide (Lasix) 40 mg DAILY PO Last administered on 11/16/18at 08:11; Start 11/13/18 at 09:00 Trazodone HCl (Desyrel) 50 mg QHS PO Last administered on 11/15/18at 20:40; Start 11/12/18 at 21:45 Lactobacillus Rhamnosus (Culturelle) 1 cap BID PO Last administered on at 08:09; Start 11/13/18 at 09:00 Ciprofloxacin (Cipro) 250 mg BID PO Last administered on 11/16/18at 08:10; Start 11/12/18 at 22:00 Nystatin (Nystop) 1 lucio BID TP ; Start 11/15/18 at 09:00; Stop 11/15/18 at 09:16 ; Status DC Sertraline HCl (Zoloft) 25 mg QHS PO Last administered on 11/15/18at 20:40; Start 11/15/18 at 21:00 Active Scripts Active Reported Zoloft (Sertraline Hcl) 25 Mg Tablet 1 Tab PO HS Trazodone Hcl 50 Mg Tablet 50 Mg PO HS Furosemide 40 Mg Tablet 40 Mg PO DAILY Ciprofloxacin Hcl 250 Mg Tablet 250 Mg PO BID Senokot (Sennosides) 8.6 Mg Tablet 8.6 Mg PO BID Duoneb 0.5-3(2.5) Mg/3 Ml (Albuterol/Ipratropium) 3 Ml Ampul.neb 3 Ml NEB QID Lidocaine 1 Each Adh..patch 1 Each TP PRN DAILY PRN Humalog Kwikpen (Insulin Lispro) Unknown Strength Insuln.pen Unknown Dose SQ TIDAC Meclizine Hcl 25 Mg Tablet 1 Tab PO PRN TID PRN Toujeo Solostar (Insulin Glargine,Hum.rec.anlog) 300 Unit/1 Ml Insuln.pen 20 Unit SQ HS Dexilant (Dexlansoprazole) 60 Mg Cap.drZoiemp 1 Cap PO DAILY Vitamin D3 (Cholecalciferol (Vitamin D3)) 5,000 Unit Tablet 1 Tab PO QWE Atorvastatin Calcium 10 Mg Tablet 1 Tab PO HS Eliquis (Apixaban) 2.5 Mg Tablet 2.5 Mg PO BID Amiodarone Hcl 200 Mg Tablet 1 Tab PO BID Metoprolol Tartrate 25 Mg Tablet 0.5 Tab PO DAILY LAST DOSE GIVEN: DATE:TODAY TIME:MORNING NEXT DOSE DUE: DATE:TOMORROW TIME:MORNING Requip (Ropinirole Hcl) 0.5 Mg Tablet 0.25 Mg PO QHS LAST DOSE GIVEN: DATE: YESTERDAY TIME: AT BEDTIME NEXT DOSE DUE: DATE: TODAY TIME: AT BEDTIME Protonix (Pantoprazole Sodium) 40 Mg Tablet.dr 1 Tab PO DAILY LAST DOSE GIVEN: DATE: TODAY TIME: BEFORE BREAKFAST NEXT DOSE DUE: DATE: TOMORROW TIME: BEFORE BREAKFAST Aspirin 81 Mg Tab.chew 81 Mg PO DAILY LAST DOSE GIVEN: DATE: TODAY TIME: AM NEXT DOSE DUE: DATE: TOMORROW TIME: AM Tylenol (Acetaminophen) 325 Mg Tablet 2 Tab PO PRN Q6HRS PRN NOT GIVEN TODAY NEXT DOSE DUE: DATE: TODAY TIME: IF AND WHEN NEEDED Magnesium Oxide 400 Mg Tablet 800 Mg PO DAILY LAST DOSE GIVEN: DATE: TODAY TIME: AM NEXT DOSE DUE: DATE: TOMORROW TIME: AM NITROGLYCERIN SubLingual (Nitroglycerin) 0.4 Mg Tab.subl 0.4 Mg SL PRN Q5MIN PRN NOT GIVEN TODAY NEXT DOSE DUE: DATE: TODAY TIME: IF AND WHEN NEEDED Xanax (Alprazolam) 0.25 Mg Tablet 0.5 Mg PO PRN TID PRN NOT GIVEN TODAY NEXT DOSE DUE: DATE: TODAY TIME: IF AND WHEN NEEDED Vitals/I & O Vital Sign - Last 24 Hours 11/15/18 11/15/18 11/15/18 11/15/18 11:00 11:00 11:07 11:24 Temp 98.0 Pulse 72 B/P (MAP) 130/64 (86) Pulse Ox 100 O2 Delivery Room Air Room Air Room Air 11/15/18 11/15/18 11/15/18 11/15/18 14:21 16:33 16:53 18:01 Temp 98.5 Pulse 72 72 Resp 20 B/P (MAP) 132/70 (90) 127/72 (90) Pulse Ox 100 97 O2 Delivery Room Air Room Air Room Air 11/15/18 11/15/18 11/15/1819 20:13 20:26 20:41 00:01 Temp 98.6 Pulse 72 76 Resp 18 B/P (MAP) 142/83 138/81 (100) Pulse Ox 99 97 O2 Delivery Room Air Room Air Room Air 11/16/18 11/16/18 11/16/18 11/16/18 00:01 04:00 04:00 05:16 Pulse 71 Resp 18 B/P (MAP) 144/58 (86) Pulse Ox 98 99 O2 Delivery Room Air Room Air Room Air Room Air 11/16/18 11/16/18 11/16/18 08:00 08:11 08:11 Pulse 88 88 O2 Delivery Room Air Intake and Output 11/15/18 11/15/18 11/16/18 14:59 22:59 06:59 Intake Total 680 ml 515 ml 100 ml Output Total 125 ml Balance 680 ml 390 ml 100 ml NEELAM VAL[employer] Nov 16, 2018 10:16
[2018-11-16 11:48] VITALS: BP 140/60
--- NOTE | 2018-11-16 12:55 | DS ---
DATE OF DISCHARGE: 11/16/2018 HISTORY OF PRESENT ILLNESS: The patient is an 88-year-old -[place] female patient, who was admitted on 11/13/2017 with the complaint of chest pain as well as increased shortness of breath and generalized weakness that has been progressively worse over the last 3-4 days. The patient has been having increased swelling of her legs and feet, having difficulty sleeping, lying down, also noted to have severe headache. The patient was admitted to the hospital for further evaluation and treatment. She has had 3 sets of cardiac enzymes that ruled out myocardial infarction. She was seen in consultation by the Cardiology team and ischemic workup was recommended by the cardiology team as she follows with Dr. Dunn at his office. Her family expressed their concern that the patient is depressed. 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 PHYSICAL EXAMINATION: GENERAL: When I saw her today, she looked well. Denied any complaint. In questioning her in particular denied any further episodes of chest pain, shortness of breath, orthopnea, or paroxysmal nocturnal dyspnea. Nursing staff did not voice any concerns that she has an uneventful night. When I examined her, she looked pale, but no jaundice, cyanosis or thyromegaly. No jugular venous distension. No lower limb edema. VITAL SIGNS: Her heart rate was 60, blood pressure 116/47, temperature was 98.2, respiratory rate was 16, and oxygen saturation was 97% on room air. HEAD, EYES, EARS, NOSE AND THROAT: Showed normocephalic, atraumatic. NECK: Supple. HEART: Normal first and second heart sounds. No gallop, rub or murmur. CHEST: Clear to auscultation. No crepitation or rhonchi. ABDOMEN: Distended, soft, nontender. NEUROLOGIC: She was awake, alert, responding appropriately. All cranial nerves intact. She moves extremities without difficulty. She ambulates with a walker. LABORATORY DATA: Today; blood sugar is well controlled. Her most recent serum sodium 142, potassium 4.2, chloride 106, bicarbonate 29, anion gap of 7, BUN 29, creatinine 2.3, estimated GFR was 24 mL per minute. Her calcium was 8.9. White cell count was 4800, hemoglobin 9, hematocrit 29, MCV 89 and platelet count of 156,000. DISCHARGE MEDICATIONS: She was discharged home to continue on Tylenol 650 mg every 6 hours, alprazolam 0.25 mg 3 times a day, amiodarone 200 mg twice a day, apixaban 2.5 mg twice a day, aspirin 81 mg once a day, atorvastatin calcium 10 mg at bedtime, cholecalciferol vitamin D3 5000 international units once a week. She was in the ciprofloxacin 250 mg twice a day for 10 days, started 5 days ago for infected tooth. She is on Dexilant 60 mg once a day, Furosemide 40 mg p.o. daily. She is on Lantus insulin 20 units at bedtime, insulin lispro or Humalog KwikPen 3 times a day before meals, ipratropium bromide, albuterol sulfate 3 mL by nebulizer 4 times a day, Lidoderm patch 1 patch topically as needed for pain, magnesium oxide 800 mg daily, meclizine 25 mg 3 times a day as needed, metoprolol tartrate 25 mg, she takes 12.5 mg daily; nitroglycerin 0.4 mg sublingually every 5 minutes as needed, Protonix 40 mg daily, Requip 0.25 mg at bedtime for restless leg syndrome, senna 1 tablet twice a day, sertraline for Zoloft 25 mg once a day and trazodone 50 mg at bedtime. FINAL DISCHARGE DIAGNOSES: 1. Chest pain, myocardial infarction was ruled out. The patient has no further complaints of pain and no further ischemic workup was recommended. 2. Coronary artery disease, status post prior percutaneous coronary intervention and stent deployment. 3. Hypertension, seems to be well controlled. 4. Pulmonary hypertension. 5. Paroxysmal atrial fibrillation, rate controlled, well anticoagulated on Eliquis and amiodarone. 6. Sick sinus syndrome, status post dual chamber pacemaker device interrogation was recommended. 7. Chronic kidney disease, stable. 8. Normochromic normocytic anemia. 9. Type 2 diabetes mellitus, which she is on Lantus insulin as well as Humalog insulin. JAMES MULTANI MD DR: ESTEPHANIA/deepak JOB#: [id number] / [id number]
[2018-11-17] MEDS ORDERED: CHOLECALCIFEROL (VITAMIN D3) 50,000 UNIT CAPSULE PO SCH (16:00)
== END 2018-11-16 12:23 | disposition home or self-care (01) | DRG 291 ==
LOC: ER 15:10 → 1 SOUTH 16:49 → ICU 11-13 11:52
PROVIDERS: ADMIT Internal Medicine; ATTEND Internal Medicine
PROC: 4B02XSZ Measurement of Cardiac Pacemaker, External Approach (ICD-10-PCS; principal; 2018-11-15)
DX: I13.0 Hypertensive heart and chronic kidney disease with heart failure and stage 1 through stage 4 chronic kidney disease, or unspecified chronic kidney disease (principal); I50.33 Acute on chronic diastolic (congestive) heart failure; N18.4 Chronic kidney disease, stage 4 (severe); G93.40 Encephalopathy, unspecified; R07.89 Other chest pain; I48.0 Paroxysmal atrial fibrillation; G89.29 Other chronic pain; M19.90 Unspecified osteoarthritis, unspecified site; D64.9 Anemia, unspecified; E11.22 Type 2 diabetes mellitus with diabetic chronic kidney disease; E78.00 Pure hypercholesterolemia, unspecified; F41.9 Anxiety disorder, unspecified; I25.10 Atherosclerotic heart disease of native coronary artery without angina pectoris; I27.20 Pulmonary hypertension, unspecified; I48.2 Chronic atrial fibrillation; J44.9 Chronic obstructive pulmonary disease, unspecified; K21.9 Gastro-esophageal reflux disease without esophagitis; Z79.01 Long term (current) use of anticoagulants; Z87.01 Personal history of pneumonia (recurrent); Z87.440 Personal history of urinary (tract) infections; Z79.4 Long term (current) use of insulin; Z82.3 Family history of stroke; Z82.49 Family history of ischemic heart disease and other diseases of the circulatory system; I25.2 Old myocardial infarction; Z86.718 Personal history of other venous thrombosis and embolism; Z83.3 Family history of diabetes mellitus; Z86.73 Personal history of transient ischemic attack (TIA), and cerebral infarction without residual deficits; Z90.49 Acquired absence of other specified parts of digestive tract; Z95.0 Presence of cardiac pacemaker; Z95.810 Presence of automatic (implantable) cardiac defibrillator; Z96.649 Presence of unspecified artificial hip joint; Z96.659 Presence of unspecified artificial knee joint; Z98.61 Coronary angioplasty status; Z88.1 Allergy status to other antibiotic agents; Z88.0 Allergy status to penicillin; Z88.7 Allergy status to serum and vaccine; Z88.8 Allergy status to other drugs, medicaments and biological substances
CPT/HCPCS: 36415; 70450; 71045; 80048; 80053; 82947; 83735; 83880; 84484; 85025; 85610; 87641; 93005; 94640; J1815; J7620; 99285-25

== ENCOUNTER 2019-01-20 12:40 | Observation (INO) | payer MEDICARE, OTHER ==
[~2019-01-20] VITALS: Ht 163.8 cm; Wt 84.4 kg
[~2019-01-20 12:40] MED LIST changes: -BUME1TAB PO; +BUME1TAB3 PO; -BUME2TAB PO; +BUME2TAB3 PO; +LIDO700A21 TD; +LIDO700A21 TP; -LIDO700A39 TD; -LIDO700A39 TP; +SERT25TA PO
--- NOTE | 2019-01-20 13:13 | RAD ---
Examination: PORTABLE CHEST 1V History: Cough Comparison/Correlation: 11/12/2018 portable chest x-ray exam Findings: Portable frontal view chest was obtained. Triple lead left-sided pacemaker is present. Postoperative cervical spine fusion. Heart size and pulmonary vascular are normal. No pneumothorax or infiltrate. Impression: No active disease. Electronically signed by: Elvin Cuevas MD (01/20/2019 1:09 PM) [id number]
[2019-01-20 13:31] LABS: BASO % 1 % (0-3); EOS # 0.1 x10^3/uL (0.0-0.7); EOS % 1 % (0-3); HEMATOCRIT 32.2 % (36.0-47.0); HEMOGLOBIN 10.4 g/dL (12.0-15.5); LYMPH # 1.1 x10^3/uL (1.0-4.8); LYMPH % 17 % (24-48); MEAN CORPUSCULAR HEMOGLOBIN 29 pg (25-35); MEAN CORPUSCULAR HGB CONC 32 g/dL (31-37); MEAN CORPUSCULAR VOLUME 88 fL (79-100); MONO # 0.4 x10^3/uL (0.0-1.1); MONO % 6 % (0-9); NEUT # 4.9 x10^3uL (1.8-7.7); NEUT % 75 % (31-73); PLATELET COUNT 151 x10^3/uL (140-400); RED BLOOD COUNT 3.65 x10^6/uL (3.50-5.40); RED CELL DISTRIBUTION WIDTH 15.9 % (11.5-14.5); WHITE BLOOD COUNT 6.6 x10^3/uL (4.0-11.0)
[2019-01-20 14:31] LABS: BACTERIA,URINE FEW /HPF (0-FEW); BILIRUBIN,URINE NEG (NEG); CLARITY,URINE HAZY; COLOR,URINE YELLOW; GLUCOSE,URINE NEG (NEG); NITRITE,URINE NEG (NEG); RBC,URINE 0 /HPF (0-2); SQUAMOUS EPITHELIAL CELL,UR MANY /LPF; UROBILINOGEN,URINE 0.2 mg/dL (0.2 mg/dL); WBC,URINE 20-40 /HPF (0-4)
[2019-01-20 15:53] LABS: ALBUMIN 3.3 g/dL (3.4-5.0); CREATININE 1.7 mg/dL (0.6-1.0); GFR 34.3; POTASSIUM 3.9 mmol/L (3.5-5.1); TOTAL BILIRUBIN 0.3 mg/dL (0.2-1.0); TOTAL PROTEIN 6.7 g/dL (6.4-8.2)
[2019-01-20] MEDS ORDERED: SMZ/TMP 800/160MG TABLET. PO ONE (16:00)
[2019-01-20] MEDS ORDERED: ONDANSETRON PF 4 MG/2 ML VIAL. IV PRN (16:15)
--- NOTE | 2019-01-20 16:16 | PHYS DOC ---
Past History Past Medical History: Diabetes, Hypertension, Renal Disease Past Surgical History: Pacemaker Smoking: Non-smoker Alcohol Use: None Drug Use: None Adult General Chief Complaint Chief Complaint: MULTIPLE COMPLAINTS HPI HPI Patient is an 88-year-old female who presents via EMS with report of increased generalized weakness with difficulty ambulating at home. Patient states that she was trying to ambulate to get to the bathroom today but states that she is just unable to do so even with assistance. She denies any chest pain or shortness of breath. She does indicate that she has some dizziness especially when she stands up. She does indicate that she has a history of this but states it is worse than usual.[] Review of Systems Review of Systems Constitutional: Denies fever or chills [] Respiratory: Denies cough or shortness of breath [] Cardiovascular: No additional information not addressed in HPI [] GI: Denies abdominal pain, nausea, vomiting, bloody stools or diarrhea [] Neurologic: Denies headache, focal weakness or sensory changes [] All other systems were reviewed and found to be within normal limits, except as documented in this note. Current Medications Current Medications Current Medications Medications (Trade) Dose Ordered Sig/Ruel Start Time Stop Time Status Last Admin Dose Admin Trimethoprim/ Sulfamethoxazole (Bactrim Ds) 1 tab 1X ONCE 01/20/19 16:00 01/20/19 16:01 DC Allergies Allergies Allergies Coded Allergies Type Severity Reaction Last Updated Verified Influenza Virus Vaccines Allergy Intermediate GENERALIZED BODY/JOINT ACHES 12/09/17 Yes Penicillins Allergy Intermediate NAUSEA/VOMITING 10/20/17 Yes amoxicillin Allergy Intermediate Nausea/Vomiting 10/20/17 Yes cephalexin Allergy Intermediate Nausea/Vomiting 10/20/17 Yes clavulanic acid Allergy Intermediate Nausea/Vomiting 10/20/17 Yes metoclopramide Allergy Intermediate NAUSEA/VOMITING 10/20/17 Yes Physical Exam Physical Exam Constitutional: Well developed, well nourished, no acute distress, non-toxic appearance. [] HENT: Normocephalic, atraumatic, bilateral external ears normal, oropharynx moist, no oral exudates, nose normal. [] Eyes: PERRLA, EOMI, conjunctiva normal, no discharge. [] Neck: Normal range of motion, no tenderness, supple, no stridor. [] Cardiovascular:Heart rate regular rhythm, no murmur [] Lungs & Thorax: Bilateral breath sounds clear to auscultation [] Abdomen: Bowel sounds normal, soft, no tenderness. [] Skin: Warm, dry, no erythema, no rash. [] Extremities: No tenderness, no cyanosis, no clubbing, ROM intact. [] Neurologic: Awake and alert, no focal deficits noted. [] Current Patient Data Vital Signs Vital Signs Date Time Temp Pulse Resp B/P (MAP) Pulse Ox O2 Delivery O2 Flow Rate FiO2 01/20/19 12:54 98.2 16 16 99 Nasal Cannula 2.0 Lab Results Laboratory Tests Test 01/20/19 13:00 01/20/19 14:00 White Blood Count 6.6 x10^3/uL (4.0-11.0) Red Blood Count 3.65 x10^6/uL (3.50-5.40) Hemoglobin 10.4 g/dL (12.0-15.5) L Hematocrit 32.2 % (36.0-47.0) L Mean Corpuscular Volume 88 fL (79-100) Mean Corpuscular Hemoglobin 29 pg (25-35) Mean Corpuscular Hemoglobin Concent 32 g/dL (31-37) Red Cell Distribution Width 15.9 % (11.5-14.5) H Platelet Count 151 x10^3/uL (140-400) Neutrophils (%) (Auto) 75 % (31-73) H Lymphocytes (%) (Auto) 17 % (24-48) L Monocytes (%) (Auto) 6 % (0-9) Eosinophils (%) (Auto) 1 % (0-3) Basophils (%) (Auto) 1 % (0-3) Neutrophils # (Auto) 4.9 x10^3uL (1.8-7.7) Lymphocytes # (Auto) 1.1 x10^3/uL (1.0-4.8) Monocytes # (Auto) 0.4 x10^3/uL (0.0-1.1) Eosinophils # (Auto) 0.1 x10^3/uL (0.0-0.7) Basophils # (Auto) 0.0 x10^3/uL (0.0-0.2) Sodium Level 144 mmol/L (136-145) Potassium Level 3.9 mmol/L (3.5-5.1) Chloride Level 107 mmol/L (98-107) Carbon Dioxide Level 29 mmol/L (21-32) Anion Gap 8 (6-14) Blood Urea Nitrogen 20 mg/dL (7-20) Creatinine 1.7 mg/dL (0.6-1.0) H Estimated GFR (Cockcroft-Gault) 34.3 BUN/Creatinine Ratio 12 (6-20) Glucose Level 132 mg/dL (70-99) H Calcium Level 9.0 mg/dL (8.5-10.1) Total Bilirubin 0.3 mg/dL (0.2-1.0) Aspartate Amino Transferase (AST) 20 U/L (15-37) Alanine Aminotransferase (ALT) 32 U/L (14-59) Alkaline Phosphatase 51 U/L (46-116) Troponin I Quantitative < 0.017 ng/mL (0-0.055) Total Protein 6.7 g/dL (6.4-8.2) Albumin 3.3 g/dL (3.4-5.0) L Albumin/Globulin Ratio 1.0 (1.0-1.7) Urine Collection Type Unknown Urine Color Yellow Urine Clarity Hazy Urine pH 6.0 Urine Specific [place] 1.010 Urine Protein 30 mg/dl (NEG-TRACE) Urine Glucose (UA) Neg mg/dL (NEG) Urine Ketones (Stick) Neg mg/dL (NEG) Urine Blood Neg (NEG) Urine Nitrite Neg (NEG) Urine Bilirubin Neg (NEG) Urine Urobilinogen Dipstick 0.2 mg/dL (0.2 mg/dL) Urine Leukocyte Esterase Small (NEG) Urine RBC 0 /HPF (0-2) Urine WBC 20-40 /HPF (0-4) Urine Squamous Epithelial Cells Many /LPF Urine Bacteria Few /HPF (0-FEW) EKG EKG [] Radiology/Procedures Radiology/Procedures [] Course & Med Decision Making Course & Med Decision Making Pertinent Labs and Imaging studies reviewed. (See chart for details) [] Dragon Disclaimer Dragon Disclaimer This electronic medical record was generated, in whole or in part, using a voice recognition dictation system. Departure Departure: Impression: Primary Impression: Generalized weakness Additional Impression: UTI (urinary tract infection) Disposition: 09 ADMITTED INPATIENT Admitting Physician: Jess Lynn Condition: GOOD Referrals: PATRICIA COOPER MD (PCP) Problem Qualifiers Additional Impression: UTI (urinary tract infection) Urinary tract infection type: site unspecified Hematuria presence: without hematuria Qualified Codes: N39.0 - Urinary tract infection, site not specified CHRISTINA ARMENDARIZ Jr. DO Jan 20, 2019 16:16
--- NOTE | 2019-01-20 17:01 | EKG ---
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
[2019-01-20] MEDS ORDERED: DEXTROSE 50% 25 GM / 50ML DISP.SYRIN. IV PRN (17:45)
[2019-01-20] MEDS ORDERED: LIDOCAINE (700MG/PATCH) PATCH. TP PRN (17:45)
[2019-01-20] MEDS ORDERED: ACETAMINOPHEN 325 MG TABLET PO PRN (17:45)
[2019-01-20] MEDS ORDERED: NITROGLYCERIN SUBLINGUAL 0.4 MG BOTTLE OF 25. SL PRN (17:45)
[2019-01-20] MEDS ORDERED: ERGO500027 PO (18:04)
[2019-01-20] MEDS ORDERED: GLIM4TAB2 PO (18:04)
[2019-01-20 18:06] VITALS: BP 144/61
[2019-01-20] MEDS ORDERED: ALPRAZolam 0.5 MG TABLET PO PRN (18:30)
[2019-01-20] MEDS ORDERED: MECLIZINE 12.5 MG TABLET. PO PRN (18:45)
[2019-01-20 19:40] VITALS: BP 116/63
[2019-01-20] MEDS: IPRATRPIUM/ALBUTEROL 0.5/2.5MG 3 ML NEBU. NEB SCH (20:19)
[2019-01-20] MEDS ORDERED: SERTRALINE 25 MG TABLET. PO SCH (21:00)
[2019-01-20] MEDS ORDERED: traZODone 50 MG TABLET. PO SCH (21:00)
[2019-01-20] MEDS ORDERED: INSULIN GLARGINE 300 UNITS/3 ML INSULN.PEN. SQ SCH (21:00)
[2019-01-20] MEDS ORDERED: ATORVASTATIN CALCIUM 10 MG TABLET. PO SCH (21:00)
[2019-01-20] MEDS ORDERED: rOPINIRole 0.25 MG TABLET. PO SCH (21:00)
[2019-01-20] MEDS: AMIODARONE HCL 200 MG TABLET PO SCH (21:15)
[2019-01-20] MEDS: SENNOSIDES 8.6 MG TABLET PO SCH (21:15)
[2019-01-20] MEDS: APIXABAN 2.5 MG TABLET PO SCH (21:15)
[2019-01-21] MEDS: IPRATRPIUM/ALBUTEROL 0.5/2.5MG 3 ML NEBU. NEB SCH ×2 (05:27→09:30)
[2019-01-21 06:29] LABS: BASO % 1 % (0-3); EOS # 0.1 x10^3/uL (0.0-0.7); EOS % 2 % (0-3); HEMATOCRIT 29.8 % (36.0-47.0); HEMOGLOBIN 9.7 g/dL (12.0-15.5); LYMPH # 2.4 x10^3/uL (1.0-4.8); LYMPH % 37 % (24-48); MEAN CORPUSCULAR HEMOGLOBIN 29 pg (25-35); MEAN CORPUSCULAR HGB CONC 33 g/dL (31-37); MEAN CORPUSCULAR VOLUME 88 fL (79-100); MONO # 0.4 x10^3/uL (0.0-1.1); MONO % 7 % (0-9); NEUT # 3.5 x10^3uL (1.8-7.7); NEUT % 54 % (31-73); PLATELET COUNT 153 x10^3/uL (140-400); WHITE BLOOD COUNT 6.6 x10^3/uL (4.0-11.0)
[2019-01-21 06:31] VITALS: BP 115/52
[2019-01-21 06:34] LABS: ALBUMIN/GLOBULIN RATIO 0.9 (1.0-1.7); CALCIUM 9.1 mg/dL (8.5-10.1); CREATININE 1.6 mg/dL (0.6-1.0); GFR 36.8; POTASSIUM 3.9 mmol/L (3.5-5.1); TOTAL BILIRUBIN 0.3 mg/dL (0.2-1.0); TOTAL PROTEIN 6.3 g/dL (6.4-8.2)
[2019-01-21] MEDS: INSULIN LISPRO 300 UNITS/3 ML INSULN.PEN. SQ SCH ×2 (08:00→12:00)
[2019-01-21] MEDS ORDERED: ASPIRIN 81 MG TAB.CHEW PO SCH (08:00)
[2019-01-21] MEDS ORDERED: MAGNESIUM OXIDE 400 MG TABLET PO SCH (09:00)
[2019-01-21] MEDS ORDERED: NON FORMULARY ITEM (Dexlansoprazole (Dexilant) 1 CAP) PO SCH (09:00)
[2019-01-21] MEDS ORDERED: METOPROLOL TART IMMED RELEASE 25 MG TABLET PO SCH (09:00)
[2019-01-21] MEDS: SENNOSIDES 8.6 MG TABLET PO SCH (09:00)
[2019-01-21] MEDS ORDERED: PANTOPRAZOLE 40 MG TABLET. PO SCH (09:00)
[2019-01-21] MEDS ORDERED: FUROSEMIDE 40 MG TABLET PO SCH (09:00)
[2019-01-21] MEDS ORDERED: GLIMEPIRIDE 2 MG TABLET PO SCH (09:00)
[2019-01-21] MEDS: APIXABAN 2.5 MG TABLET PO SCH (10:43)
[2019-01-21] MEDS: AMIODARONE HCL 200 MG TABLET PO SCH (10:45)
[2019-01-21 10:46] VITALS: BP 130/58
--- NOTE | 2019-01-24 11:01 | SSS ---
ADMIT DATE: 01/21/2019 HISTORY OF PRESENT ILLNESS: The patient is an 88-year-old -Burm[place] female patient with multiple medical problems who came to the Emergency Room complaining of generalized weakness and multiple complaints including recurrent bouts of cough and wheezing. She has just completed a course of antibiotic therapy for her UTI, and she was extensively investigated in the Emergency Room, and her lab works are all within acceptable range. Her chest x-ray was unremarkable and was admitted overnight for observation. She did very well. When I saw her, she was sitting comfortably in her chair, in no apparent distress. On questioning her, denied any complaint. She participated with physical therapy and was able to walk with a walker without difficulty and a decision was made to discharge her home. PAST MEDICAL HISTORY: Significant for coronary artery disease with recent unstable angina, essential hypertension, hypercholesterolemia, paroxysmal atrial fibrillation, chronic diastolic congestive heart failure, pulmonary hypertension. She is also known to have chronic anemia, generalized osteoarthritis, previous history of deep vein thrombosis, type 2 diabetes mellitus, gastroesophageal reflux disease, peripheral arterial disease, history of stroke with no residual side effect and sick sinus syndrome. PAST SURGICAL HISTORY: Significant for permanent pacemaker placement as well as bilateral total knee arthroplasty. FAMILY HISTORY: Unremarkable, noncontributory. SOCIAL HISTORY: She lives at home with her son. She does not smoke, drink alcohol or recreational drugs. She ambulates with a walker. ALLERGIES: SHE IS ALLERGIC TO INFLUENZA VIRUS VACCINE, PENICILLIN, AMOXICILLIN, CEPHALEXIN, AUGMENTIN WELL METOCLOPRAMIDE. MEDICATIONS: She is currently on following medications: She is on ipratropium bromide, albuterol sulfate 0.5-2.5 mg 3 mL by nebulizer 4 times a day, apixaban 2.5 mg twice a day, amiodarone 200 mg twice a day, atorvastatin calcium. She is on vitamin D 50,000 International Unit once a week, Protonix 40 mg once a day, magnesium oxide 800 mg daily, glimepiride 4 mg daily, furosemide 40 mg once a day, metoclopramide 12.5 mg daily, aspirin 81 mg once a day, trazodone 50 mg at bedtime, sertraline 25 mg at bedtime, Senna 1 tablet twice a day, Requip 0.25 mg at bedtime, Lantus insulin 20 units at bedtime, DuoNeb 3 mL 4 times a day, meclizine 25 mg 3 times a day, alprazolam 0.5 mg 3 times a day, nitroglycerin 0.4 mg sublingually every 5 minutes, Lidoderm patch applied topically on for 12 hours and off for 12 hours, acetaminophen 650 mg every 4 hours as needed. PHYSICAL EXAMINATION: GENERAL: On examining her, she looked well and was clearly in no apparent respiratory distress, slightly pale, but no jaundice, cyanosis or thyromegaly. No jugular venous distention. No lower limb edema. VITAL SIGNS: Her heart rate was 70, blood pressure was 144/61, temperature was 98.3, respiratory rate 20, and oxygen saturation was 100% on 3 liters of oxygen by nasal cannula. HEAD, EYES, EARS, NOSE AND THROAT: Showed normocephalic, atraumatic. NECK: Supple. HEART: Showed normal first and second heart sounds. No gallop, rub or murmur. CHEST: Shows central trachea, equal bilateral expansion, air entry, vesicular sounds with few scattered rhonchi, could not appreciate any crepitation. ABDOMEN: Distended, soft, nontender. NEUROLOGIC: She is awake, alert, responding appropriately. All cranial nerves intact. EXTREMITIES: She moves extremities without difficulty. She ambulates with a walker. LABORATORY DATA: On admission showed a white cell count of 6600, hemoglobin 10.4, hematocrit 32, MCV 88 and platelet count 151,000. Her serum sodium was 144, potassium 3.9, chloride 107, bicarbonate 29, anion gap of 8, BUN 20, creatinine 1.7, estimated GFR was 54 mL per minute. Her glucose 132, calcium was 9. Total bilirubin, AST, ALT, alkaline phosphatase were normal. Total protein was 6.7, albumin was 3.3. Her urinalysis showed the urine was yellow, hazy with a pH of 6, specific gravity of 1.010, small amount of protein. The urine was negative for glucose, ketones, blood, nitrite and leukocyte esterase. There were 0 rbc's, 20-40 wbc's, very few bacteria as the patient has just finished the course of antibiotic therapy. ASSESSMENT: The patient is admitted with generalized weakness. She seemed to be doing well. All her lab works are within acceptable range. Her creatinine is at its lowest for probably months. She has already finished her antibiotic treatment, and I do not believe that she needs any further antibiotic therapy. She is stable and will be discharged home. JAMES MULTANI MD DR: ESTEPHANIA/deepak JOB#: [id number] / [id number]
[2019-01-27] MEDS ORDERED: CHOLECALCIFEROL (VITAMIN D3) 50,000 UNIT CAPSULE PO SCH (09:00)
== END 2019-01-21 15:00 | disposition home or self-care (01) ==
LOC: ER 12:40 → ICU 17:47
PROVIDERS: ADMIT Internal Medicine; ATTEND Internal Medicine
DX: R53.1 Weakness (principal); N39.0 Urinary tract infection, site not specified; N28.9 Disorder of kidney and ureter, unspecified; R42 Dizziness and giddiness; I25.10 Atherosclerotic heart disease of native coronary artery without angina pectoris; E78.00 Pure hypercholesterolemia, unspecified; I48.0 Paroxysmal atrial fibrillation; I11.0 Hypertensive heart disease with heart failure; I50.32 Chronic diastolic (congestive) heart failure; I27.20 Pulmonary hypertension, unspecified; K21.9 Gastro-esophageal reflux disease without esophagitis; E11.51 Type 2 diabetes mellitus with diabetic peripheral angiopathy without gangrene; M15.9 Polyosteoarthritis, unspecified; I49.5 Sick sinus syndrome; Z86.73 Personal history of transient ischemic attack (TIA), and cerebral infarction without residual deficits; Z95.0 Presence of cardiac pacemaker; Z86.718 Personal history of other venous thrombosis and embolism; Z96.653 Presence of artificial knee joint, bilateral; D64.9 Anemia, unspecified
CPT/HCPCS: 36415; 71045; 80053; 81001; 82947; 84484; 85025; 87086; 87641; 93005; 94640; 96372; 97162; 97166; 99284; G0378; J1815; J7620; G0379

== ENCOUNTER → 2019-03-03 | Outpatient (CLI) | payer MEDICARE, OTHER ==
--- NOTE | 2019-03-03 13:17 | RAD ---
3 views right wrist 03/03/2019 12:00 AM Indication: Right wrist pain Comparison: None available. FINDINGS: No evidence of acute fracture or dislocation is identified. Relatively mild degenerative changes of the wrist are seen, more prominent laterally wire there is intracarpal joint space narrowing and some sclerosis. Atherosclerotic calcification is noted. No acute soft tissues changes are seen. IMPRESSION: Mild degenerative changes without evidence of acute osseous abnormality Electronically signed by: Erik Angeles MD (03/03/2019 1:15 PM) [facility]
== END | disposition home or self-care (01) ==
LOC: PMG 12:09
PROVIDERS: ATTEND Family Medicine
DX: M19.031 Primary osteoarthritis, right wrist (principal)
CPT/HCPCS: 73110

== ENCOUNTER → 2019-03-25 | Outpatient (CLI) | payer MEDICARE, OTHER ==
[~2019-03-25] MED LIST changes: -EZET10TA18 PO; +EZET10TA20 PO
--- NOTE | 2019-03-25 15:27 | RAD ---
EXAM: Chest, 2 views. HISTORY: Congestive heart failure. Wheezing. COMPARISON: 01/20/2019 FINDINGS: 2 views of the chest are obtained. There is no infiltrate, pleural effusion or pneumothorax. The heart is normal in size. There is a cardiac pacemaker with leads in expected position. There is cervical spinal fusion instrumentation. IMPRESSION: No acute pulmonary finding. Electronically signed by: Bertha Castrejon MD (03/25/2019 3:24 PM) [facility]
== END | disposition home or self-care (01) ==
LOC: PMG 14:19
PROVIDERS: ATTEND Registered Nurse
DX: I11.0 Hypertensive heart disease with heart failure (principal); I50.32 Chronic diastolic (congestive) heart failure; Z95.5 Presence of coronary angioplasty implant and graft; Z98.1 Arthrodesis status; Z95.0 Presence of cardiac pacemaker
CPT/HCPCS: 71046

== ENCOUNTER 2019-04-08 10:53 | Emergency (ER) | payer MEDICARE, OTHER ==
[2019-04-08 11:09] VITALS: BP 112/73
--- NOTE | 2019-04-08 11:59 | RAD ---
Examination: CT head and cervical spine without contrast CT HEAD INDICATION: Trauma COMPARISON: 11/13/2018 Exposure: One or more of the following individualized dose reduction techniques were utilized for this examination: 1. Automated exposure control 2. Adjustment of the mA and/or kV according to patient size 3. Use of iterative reconstruction technique TECHNIQUE: 5 mm contiguous axial images were obtained from the skull base to the vertex in both bone and soft tissue algorithm. FINDINGS: No abnormal attenuation within the brain parenchyma. No evidence of acute intracranial hemorrhage. No extra-axial fluid collections. No mass effect or midline shift. Ventricular size is appropriate. Basal cisterns are patent. No fractures identified.Wright-white differentiation is preserved.Globes and orbits are within normal limits. Paranasal sinuses and mastoid air cells are clear. IMPRESSION: No acute intracranial findings. CT CERVICAL SPINE INDICATION: Trauma COMPARISON: None Available. Technique: 2.5 mm contiguous axial images were obtained from the skull base through the cervicothoracic junction in both bone and soft tissue algorithm. Additional sagittal and coronal reconstructions were also performed. FINDINGS: Vertebral body heights are maintained. There is straightening of normal cervical lordosis. The lateral masses of C1 are aligned upon C2. No fractures identified. Anterior cervical fusion hardware identified at C5-C6 vertebral levels. The bilateral facets are well aligned. Moderate anterior osteophyte formation identified at C2, C3, C4, C5 vertebral levels. Posterior disc bulges identified at C2-C3, C3-C4, C4-C5 and C6-C7 vertebral levels. Multilevel bilateral neural foraminal narrowing identified. The paraspinous soft tissues are unremarkable. Visualized intracranial contents are unremarkable. Lung apices are clear. IMPRESSION: 1. No acute fracture of the cervical spine. Correlate clinically. 2. Multilevel degenerative changes cervical spine as described above. If pain persists recommend follow-up MRI. Electronically signed by: Gerardo Arguello MD (04/08/2019 11:56 AM) [place] [id number]
--- NOTE | 2019-04-08 12:12 | PHYS DOC ---
Past History Past Medical History: Diabetes, Hypertension, Renal Disease Past Surgical History: Pacemaker Smoking: Non-smoker Alcohol Use: None Drug Use: None Adult General Chief Complaint Chief Complaint: MECHANICAL FALL HPI HPI Patient is a 88 yo f with head injury lost balance while turning around to close a/c vent last night hit left head on nightstand no loc no vomiting mild left neck pain on eliqui\s Review of Systems Review of Systems Constitutional: Denies fever or chills [] Eyes: Denies change in visual acuity, redness, or eye pain [] HENT: Denies nasal congestion or sore throat [] Respiratory: Denies cough or shortness of breath [] Cardiovascular: No additional information not addressed in HPI [] GI: Denies abdominal pain, nausea, vomiting, bloody stools or diarrhea [] : Denies dysuria or hematuria [] Musculoskeletal: Denies back pain or joint pain [] Integument: Denies rash or skin lesions [] Neurologic: Denies headache, focal weakness or sensory changes [] Endocrine: Denies polyuria or polydipsia [] All other systems were reviewed and found to be within normal limits, except as documented in this note. Allergies Allergies Allergies Coded Allergies Type Severity Reaction Last Updated Verified Influenza Virus Vaccines Allergy Intermediate GENERALIZED BODY/JOINT ACHES 12/09/17 Yes Penicillins Allergy Intermediate NAUSEA/VOMITING 10/20/17 Yes amoxicillin Allergy Intermediate Nausea/Vomiting 10/20/17 Yes cephalexin Allergy Intermediate Nausea/Vomiting 10/20/17 Yes clavulanic acid Allergy Intermediate Nausea/Vomiting 10/20/17 Yes metoclopramide Allergy Intermediate NAUSEA/VOMITING 10/20/17 Yes Physical Exam Physical Exam Constitutional: Well developed, well nourished, no acute distress, non-toxic appearance. [] HENT: Normocephalic, atraumatic, bilateral external ears normal, oropharynx moist, no oral exudates, nose normal. [] mild ttp noted left head and neck but no trauma seen. Eyes: PERRLA, EOMI, conjunctiva normal, no discharge. [] Neck: Normal range of motion, no tenderness, supple, no stridor. [] Cardiovascular:Heart rate regular rhythm, no murmur [] Lungs & Thorax: Bilateral breath sounds clear to auscultation [] Abdomen: Bowel sounds normal, soft, no tenderness, no masses, no pulsatile masses. [] Skin: Warm, dry, no erythema, no rash. [] Back: No tenderness, no CVA tenderness. [] Extremities: No tenderness, no cyanosis, no clubbing, ROM intact, no edema. [] Neurologic: Alert and oriented X 3, normal motor function, normal sensory function, no focal deficits noted. [] unruly to ambulate in er with walker. Psychologic: Affect normal, judgement normal, mood normal. [] Current Patient Data Vital Signs Vital Signs Date Time Temp Pulse Resp B/P (MAP) Pulse Ox O2 Delivery O2 Flow Rate FiO2 04/08/19 11:09 98.6 70 22 98 Room Air EKG EKG [] Radiology/Procedures Radiology/Procedures [] Impressions: No abnormal attenuation within the brain parenchyma. No evidence of acute intracranial hemorrhage. No extra-axial fluid collections. No mass effect or midline shift. Ventricular size is appropriate. Basal cisterns are patent. No fractures identified.Wright-white differentiation is preserved.Globes and orbits are within normal limits. Paranasal sinuses and mastoid air cells are clear. IMPRESSION: No acute intracranial findings. CT CERVICAL SPINE INDICATION: Trauma COMPARISON: None Available. Technique: 2.5 mm contiguous axial images were obtained from the skull base through the cervicothoracic junction in both bone and soft tissue algorithm. Additional sagittal and coronal reconstructions were also performed. FINDINGS: Vertebral body heights are maintained. There is straightening of normal cervical lordosis. The lateral masses of C1 are aligned upon C2. No fractures identified. Anterior cervical fusion hardware identified at C5-C6 vertebral levels. The bilateral facets are well aligned. Moderate anterior osteophyte formation identified at C2, C3, C4, C5 vertebral levels. Posterior disc bulges identified at C2-C3, C3-C4, C4-C5 and C6-C7 vertebral levels. Multilevel bilateral neural foraminal narrowing identified. The paraspinous soft tissues are unremarkable. Visualized intracranial contents are unremarkable. Lung apices are clear. IMPRESSION: 1. No acute fracture of the cervical spine. Correlate clinically. 2. Multilevel degenerative changes cervical spine as described above. If pain persists recommend follow-up MRI. Electronically signed by: Gerardo Arguello MD (04/08/2019 11:56 AM) [facility] DICTATED AND SIGNED BY: GERARDO ARGUELLO MD DATE: 04/08/19 [id number] CC: ELLEN CLEMENT MD; PATRICIA COOPER MD ~ Course & Med Decision Making Course & Med Decision Making Pertinent Labs and Imaging studies reviewed. (See chart for details) []perature (Fahrenheit): * 98.6 degrees F (97.6-99.5) Patient Temperature * 98.6 degrees F (97.5-99.5) Temperature Source * Temporal Artery Scan Blood Pressure Systolic * 112 mm Hg (100-140) Blood Pressure Diastolic * 73 mm Hg (60-100) Blood Pressure Mean * 86 mm Hg Blood Pressure Location * Left Arm Blood Pressure Source * Automatic Cuff Pulse Rate * 70 beats per minute (60-90) Pulse Assessment Method * Monitor Respiratory Rate * 22 breaths per minute (12-24) Oxygen Delivery Method * Room Air Bedside Pulse Oximetry * 98 % Treatment Prior to Arriva Dragon Disclaimer Dragon Disclaimer This electronic medical record was generated, in whole or in part, using a voice recognition dictation system. Departure Departure: Impression: Primary Impression: Head injury Disposition: 01 HOME, SELF-CARE Condition: STABLE Referrals: PATRICIA COOPER MD (PCP) ELLEN CLEMENT MD Apr 08, 2019 12:12
== END 2019-04-08 12:23 | disposition home or self-care (01) ==
LOC: ER 10:53
DX: S09.8XXA Other specified injuries of head, initial encounter (principal); M54.2 Cervicalgia; E11.9 Type 2 diabetes mellitus without complications; I10 Essential (primary) hypertension; Z95.0 Presence of cardiac pacemaker; Z88.1 Allergy status to other antibiotic agents; Z88.0 Allergy status to penicillin; Z88.7 Allergy status to serum and vaccine; Z88.8 Allergy status to other drugs, medicaments and biological substances; W18.39XA Other fall on same level, initial encounter; Y93.89 Activity, other specified; Y92.89 Other specified places as the place of occurrence of the external cause; Y99.8 Other external cause status
CPT/HCPCS: 70450; 72125; 99284-25

== ENCOUNTER 2019-04-17 09:25 | Inpatient (IN) | payer MEDICARE, OTHER ==
[~2019-04-17] VITALS: Ht 163.8 cm; Wt 83.9 kg
[2019-04-17] MEDS ORDERED: ASPIRIN 81 MG TAB.CHEW PO ONE (09:45)
[2019-04-17] MEDS ORDERED: NITROGLYCERIN SUBLINGUAL 0.4 MG BOTTLE OF 25. SL PRN ×3 (09:45→16:45)
[2019-04-17 09:54] LABS: BASO # 0.1 x10^3/uL (0.0-0.2); BASO % 2 % (0-3); EOS # 0.1 x10^3/uL (0.0-0.7); EOS % 2 % (0-3); HEMATOCRIT 33.8 % (36.0-47.0); HEMOGLOBIN 10.9 g/dL (12.0-15.5); LYMPH # 2.2 x10^3/uL (1.0-4.8); LYMPH % 30 % (24-48); MEAN CORPUSCULAR HEMOGLOBIN 29 pg (25-35); MEAN CORPUSCULAR HGB CONC 32 g/dL (31-37); MEAN CORPUSCULAR VOLUME 89 fL (79-100); MONO # 0.5 x10^3/uL (0.0-1.1); MONO % 7 % (0-9); NEUT # 4.3 x10^3uL (1.8-7.7); NEUT % 59 % (31-73); PLATELET COUNT 201 x10^3/uL (140-400); RED BLOOD COUNT 3.81 x10^6/uL (3.50-5.40); RED CELL DISTRIBUTION WIDTH 15.4 % (11.5-14.5); WHITE BLOOD COUNT 7.3 x10^3/uL (4.0-11.0)
--- NOTE | 2019-04-17 10:11 | PHYS DOC ---
Past History Past Medical History: CHF, Diabetes, Heart Disease, Hypertension, [place], Renal Disease, Stroke, TIA, UTI Past Surgical History: Pacemaker, Other Additional Past Surgical Histo: cardiac stents Smoking: Non-smoker Alcohol Use: None Drug Use: None Adult General Chief Complaint Chief Complaint: CHEST PAIN HPI HPI Patient is a 88-year-old female presents complaining of chest pain that began last night. Improved with nitroglycerin. Patient feels generalized weakness. No radiation of the discomfort. Describes it as a heaviness. Worse with exertion. There is also a respirophasic component. Known nausea or vomiting. This is similar discomfort to when she has had previous cardiac stents. Currently symptoms are mild, approximately a 1 out of 10 in intensity.[] Review of Systems Review of Systems Constitutional: Denies fever or chills [] Eyes: Denies change in visual acuity, redness, or eye pain [] HENT: Denies nasal congestion or sore throat [] Respiratory: Denies cough or shortness of breath [] Cardiovascular: No additional information not addressed in HPI [] GI: Denies abdominal pain, nausea, vomiting, bloody stools or diarrhea [] : Denies dysuria or hematuria [] Musculoskeletal: Denies back pain or joint pain [] Integument: Denies rash or skin lesions [] Neurologic: Denies headache, focal weakness or sensory changes [] Endocrine: Denies polyuria or polydipsia [] All other systems were reviewed and found to be within normal limits, except as documented in this note. Current Medications Current Medications Current Medications Medications (Trade) Dose Ordered Sig/[facility] Start Time Stop Time Status Last Admin Dose Admin Aspirin (Children'S Aspirin) 324 mg 1X ONCE 04/17/19 09:45 04/17/19 09:50 DC 04/17/19 09:55 324 MG Nitroglycerin (Nitrostat) 0.4 mg PRN Q5MIN PRN 04/17/19 09:45 04/18/19 09:44 04/17/19 09:56 0.4 MG Allergies Allergies Allergies Coded Allergies Type Severity Reaction Last Updated Verified Influenza Virus Vaccines Allergy Intermediate GENERALIZED BODY/JOINT ACHES 12/09/17 Yes Penicillins Allergy Intermediate NAUSEA/VOMITING 10/20/17 Yes amoxicillin Allergy Intermediate Nausea/Vomiting 10/20/17 Yes cephalexin Allergy Intermediate Nausea/Vomiting 10/20/17 Yes clavulanic acid Allergy Intermediate Nausea/Vomiting 10/20/17 Yes metoclopramide Allergy Intermediate NAUSEA/VOMITING 10/20/17 Yes Physical Exam Physical Exam Constitutional: Well developed, well nourished, no acute distress, non-toxic appearance. [] HENT: Normocephalic, atraumatic, bilateral external ears normal, oropharynx moist, no oral exudates, nose normal. [] Eyes: PERRLA, EOMI, conjunctiva normal, no discharge. [] Neck: Normal range of motion, no tenderness, supple, no stridor. [] Cardiovascular:Heart rate regular rhythm, no murmur [] Lungs & Thorax: Bilateral breath sounds clear to auscultation [] Abdomen: Bowel sounds normal, soft, no tenderness, no masses, no pulsatile masses. [] Skin: Warm, dry, no erythema, no rash. [] Back: No tenderness, no CVA tenderness. [] Extremities: No tenderness, no cyanosis, no clubbing, ROM intact, no edema. [] Neurologic: Alert and oriented X 3, normal motor function, normal sensory function, no focal deficits noted. [] Psychologic: Affect normal, judgement normal, mood normal. [] Current Patient Data Vital Signs Vital Signs Date Time Temp Pulse Resp B/P (MAP) Pulse Ox O2 Delivery O2 Flow Rate FiO2 04/17/19 09:56 75 139/62 04/17/19 09:25 97.9 14 99 Room Air Lab Results Laboratory Tests Test 04/17/19 09:31 White Blood Count 7.3 x10^3/uL (4.0-11.0) Red Blood Count 3.81 x10^6/uL (3.50-5.40) Hemoglobin 10.9 g/dL (12.0-15.5) L Hematocrit 33.8 % (36.0-47.0) L Mean Corpuscular Volume 89 fL (79-100) Mean Corpuscular Hemoglobin 29 pg (25-35) Mean Corpuscular Hemoglobin Concent 32 g/dL (31-37) Red Cell Distribution Width 15.4 % (11.5-14.5) H Platelet Count 201 x10^3/uL (140-400) Neutrophils (%) (Auto) 59 % (31-73) Lymphocytes (%) (Auto) 30 % (24-48) Monocytes (%) (Auto) 7 % (0-9) Eosinophils (%) (Auto) 2 % (0-3) Basophils (%) (Auto) 2 % (0-3) Neutrophils # (Auto) 4.3 x10^3uL (1.8-7.7) Lymphocytes # (Auto) 2.2 x10^3/uL (1.0-4.8) Monocytes # (Auto) 0.5 x10^3/uL (0.0-1.1) Eosinophils # (Auto) 0.1 x10^3/uL (0.0-0.7) Basophils # (Auto) 0.1 x10^3/uL (0.0-0.2) EKG EKG EKG shows a paced rhythm at 73 bpm, left axis at -65, QTC of 511 ms, there is some ST depression in the lateral leads, which is different when compared with EKG of 01/20/2019. This was interpreted by me at 0936[] Radiology/Procedures Radiology/Procedures PROCEDURE: PORTABLE CHEST 1V Examination: PORTABLE CHEST 1V History: Chest pain Comparison/Correlation: 03/25/2019 two-view chest x-ray exam Findings: Portable frontal view chest was obtained. Left-sided triple lead pacemaker is present. Heart size and pulmonary vasculature are normal. No infiltrate or pleural effusion. No pneumothorax. No acute bony process. Impression: No active disease.[] Course & Med Decision Making Course & Med Decision Making Pertinent Labs and Imaging studies reviewed. (See chart for details) ED course: Patient arrived, was placed in bed, and tolerated exam well. She was given aspirin. After the return of the laboratory and imaging studies, these were discussed with patient and family who voiced understanding. Consultation was made with hospitalist service who graciously admitted her. She was admitted in improved condition with all questions answered. Medical decision makin-year-old female with known history of cardiac d isease with chest discomfort similar to her previous need first cardiac stents. At this time her cardiac enzymes are negative, there is no evidence of a pulmonary embolism, pneumonia, nor significant fluid retention even her history of CHF. Her renal function is a little bit worse than her usual baseline and her BNP seems to be a little bit more elevated. Dragon Disclaimer Dragon Disclaimer This electronic medical record was generated, in whole or in part, using a voice recognition dictation system. Departure Departure: Impression: Primary Impression: Chest pain Additional Impressions: CHF (congestive heart failure) Diabetes Sfbah-sy-wlbzlqh kidney injury Disposition: ADMITTED INPATIENT Admitting Physician: Jess Lynn Condition: IMPROVED Referrals: PATRICIA COOPER MD (PCP) Problem Qualifiers Primary Impression: Chest pain Chest pain type: unspecified Qualified Codes: R07.9 - Chest pain, unspecified Additional Impressions: CHF (congestive heart failure) Heart failure type: unspecified Heart failure chronicity: unspecified Qualified Codes: I50.9 - Heart failure, unspecified Diabetes Diabetes mellitus type: type 2 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
--- NOTE | 2019-04-17 10:11 | RAD ---
Examination: PORTABLE CHEST 1V History: Chest pain Comparison/Correlation: 03/25/2019 two-view chest x-ray exam Findings: Portable frontal view chest was obtained. Left-sided triple lead pacemaker is present. Heart size and pulmonary vasculature are normal. No infiltrate or pleural effusion. No pneumothorax. No acute bony process. Impression: No active disease. Electronically signed by: Elvin Cuevas MD (04/17/2019 10:08 AM) [facility]
[2019-04-17 10:16] LABS: ALBUMIN 3.8 g/dL (3.4-5.0); ALBUMIN/GLOBULIN RATIO 1.2 (1.0-1.7); CALCIUM 9.3 mg/dL (8.5-10.1); CREATININE 2.7 mg/dL (0.6-1.0); GFR 20.1; POTASSIUM 4.2 mmol/L (3.5-5.1); TOTAL BILIRUBIN 0.5 mg/dL (0.2-1.0); TOTAL PROTEIN 7.1 g/dL (6.4-8.2)
[2019-04-17] MEDS ORDERED: ACETAMINOPHEN 325 MG TABLET PO PRN (11:00)
[2019-04-17] MEDS ORDERED: ONDANSETRON PF 4 MG/2 ML VIAL. IV PRN (11:00)
[2019-04-17 13:15] VITALS: BP 134/72
[2019-04-17] MEDS ORDERED: LIDOCAINE (700MG/PATCH) PATCH. TP PRN (16:45)
[2019-04-17] MEDS ORDERED: MECLIZINE 12.5 MG TABLET. PO PRN (17:00)
[2019-04-17] MEDS ORDERED: ALPRAZolam 0.5 MG TABLET PO PRN (17:00)
[2019-04-17] MEDS: IPRATRPIUM/ALBUTEROL 0.5/2.5MG 3 ML NEBU. NEB SCH ×2 (17:00→21:14)
--- NOTE | 2019-04-17 17:16 | EKG ---
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
[2019-04-17] MEDS ORDERED: DEXTROSE 50% 25 GM / 50ML DISP.SYRIN. IV PRN (17:30)
--- NOTE | 2019-04-17 17:32 | HP ---
ADMIT DATE: 04/17/2019 HISTORY OF PRESENT ILLNESS: The patient is an 88-year-old -[place]enian female patient, who yet again came to the Emergency Room complaining of chest pain that began last night, improved with nitroglycerin. She also complained of generalized weakness. No radiation of discomfort, described as heaviness, worse with exertion. There is also respiratory component. No nausea or vomiting. She has similar discomfort when she has had previous cardiac stents. By the time she arrived to the Emergency Room, she rated her pain as 1/10 in intensity. She was evaluated, has had an EKG, which showed that she has paced rhythm at 73 beats per minute with left axis deviation, corrected QT interval of [address] depression. Her chest x-ray showed that the patient's heart size and pulmonary vasculature are normal. No evidence of infiltrate, pleural effusion, or pneumothorax. The patient was admitted. Her lab work showed that her creatinine slightly elevated at 2.7, BUN of 36. Her baseline creatinine is around 1.6-1.7. Her first set of cardiac enzymes showed troponin to be 0.022. The patient was admitted to do 2 more sets of cardiac enzyme and to consult the cardiology team. PAST MEDICAL HISTORY: Significant for coronary artery disease, essential hypertension, hypercholesterolemia, paroxysmal atrial fibrillation, chronic diastolic congestive heart failure, pulmonary hypertension. She is also known to have chronic anemia, generalized osteoarthritis, previous history of deep vein thrombosis, type 2 diabetes mellitus, gastroesophageal reflux disease, peripheral arterial disease, history of stroke with no residual effect and sick sinus syndrome as well as chronic renal failure. PAST SURGICAL HISTORY: Significant for permanent pacemaker placement as well as bilateral total knee arthroplasty. FAMILY HISTORY: Unremarkable, noncontributory. SOCIAL HISTORY: She lives at home with her son. She does not smoke, drink alcohol or use recreational drugs. She ambulates with a walker. ALLERGIES: She is allergic to INFLUENZA VIRUS VACCINE, PENICILLIN, AMOXICILLIN, CEPHALEXIN, AUGMENTIN, as well as METOCLOPRAMIDE. MEDICATIONS: She is currently on following medications: She is on ipratropium bromide and albuterol sulfate in 3 mL by nebulizer 4 times a day; apixaban 2.5 mg twice a day; amiodarone 200 mg twice a day; atorvastatin calcium 10 mg at bedtime; nitroglycerin 0.4 mg every 5 minutes x 3; metoprolol tartrate 25 mg, she takes half a tablet once a day; aspirin 81 mg once a day; acetaminophen 650 mg every 6 hours; sertraline 25 mg once a day; trazodone 50 mg at bedtime; alprazolam 0.25 mg 3 times a day. She is on Requip 0.25 mg at bedtime, furosemide 40 mg daily, magnesium oxide 800 mg once a day, Senna 1 tablet twice a day, meclizine 25 mg 3 times a day as needed. She is on Dexilant 60 mg once a day, Protonix 40 mg once a day. She is on Lantus and Toujeo 20 units at bedtime and Humalog KwikPen 3 times a day before meals. She is on glimepiride 4 mg once a day, Lidoderm patch applied topically once a day, vitamin D for ergocalciferol 50,000 international units once a week. REVIEW OF SYSTEMS: As per history of present illness. PHYSICAL EXAMINATION: GENERAL: On examining her, she was resting slightly propped up in bed, in no apparent distress. She was somewhat pale, but no jaundice, cyanosis or thyromegaly. No jugular venous distention. No lower limb edema. VITAL SIGNS: Her heart rate was 70, blood pressure was 139/62, temperature was 97.9, respiratory rate was 14 and oxygen saturation was 99% on room air. HEAD, EYES, EARS, NOSE AND THROAT: Showed normocephalic, atraumatic. NECK: Supple. HEART: Showed normal first and second heart sounds with no gallop or murmur. CHEST: Shows central trachea, equally reduced expansion, reduced air entry, vesicular sounds with expiratory wheezes. I could not appreciate any crepitation. ABDOMEN: Distended, soft, nontender. NEUROLOGIC: She is awake, alert, responding appropriately. All cranial nerves intact. EXTREMITIES: She moves extremities without difficulty. LABORATORY DATA: Showed a white cell count 7300; hemoglobin 11; hematocrit 33; MCV 89 and platelet count 201,000 with a manual differential showed 59% polymorphs, 30% lymphocytes and 7% monocytes. Her serum sodium was 142, potassium of 4.2, chloride 103, bicarbonate 29, anion gap of 10, BUN 36, creatinine 2.7, estimated GFR was 20 mL per minute. His glucose was 225, calcium was 9.3, magnesium 2. Total bilirubin, AST, ALT, alkaline phosphatase were normal. Her beta natriuretic peptide was 1335. Troponin was less than 0.022. Total protein was 7.1, albumin 3.8 and lipase was 78. Her prothrombin time was 9.7, INR of 0.9, aPTT was 28 and D-dimer was 0.46. ASSESSMENT: In summary, this is an 88-year-old -Armenian female patient who came with somewhat atypical left-sided chest pain and that she describes as heaviness, worse with exertion, was rated about 1/10 in severity with no nausea, no vomiting, no diaphoresis, and no radiation. Her first set of cardiac enzyme was 0.022. Other medical problems include acute on chronic kidney injury. Her creatinine was 2.7 with baseline of about 1.6-1.7. She is known to have chronic diastolic congestive heart failure; type 2 diabetes mellitus; atrial fibrillation, rate controlled, well anticoagulated. She also has hypertension, anemia of chronic kidney disease, chronic kidney disease. PLAN: To do 2 more sets of cardiac enzyme, check her fasting lipid profile and consult the cardiology team tomorrow. JAMES MULTANI MD DR: ESTEPHANIA/deepak JOB#: [id number] / [id number]
[2019-04-17] MEDS: INSULIN LISPRO 300 UNITS/3 ML VIAL. SQ SCH (17:41)
[2019-04-17 20:11] VITALS: BP 146/68
[2019-04-17] MEDS: APIXABAN 2.5 MG TABLET PO SCH (20:20)
[2019-04-17] MEDS: ATORVASTATIN CALCIUM 10 MG TABLET. PO SCH (20:20)
[2019-04-17] MEDS: SENNOSIDES 8.6 MG TABLET PO SCH (20:21)
[2019-04-17] MEDS: ACETAMINOPHEN 325 MG TABLET PO PRN (20:21)
[2019-04-17] MEDS: AMIODARONE HCL 200 MG TABLET PO SCH (20:21)
[2019-04-17] MEDS: rOPINIRole 0.5 MG TABLET. PO SCH (20:21)
[2019-04-17] MEDS: SERTRALINE 25 MG TABLET. PO SCH (20:21)
[2019-04-17] MEDS: traZODone 50 MG TABLET. PO SCH (20:21)
[2019-04-17] MEDS: INSULIN GLARGINE SYRINGE. SQ SCH (20:24)
[2019-04-17 22:55] VITALS: BP 122/58
[2019-04-18] MEDS: IPRATRPIUM/ALBUTEROL 0.5/2.5MG 3 ML NEBU. NEB SCH ×4 (05:34→20:33)
[2019-04-18 05:47] VITALS: BP 117/57
[2019-04-18 06:33] LABS: CALCIUM 8.8 mg/dL (8.5-10.1); CREATININE 2.6 mg/dL (0.6-1.0); POTASSIUM 3.9 mmol/L (3.5-5.1)
--- NOTE | 2019-04-18 07:35 | PDOC2 ---
CARDIAC CONSULT DATE OF CONSULT Date Of Consult DATE: 04/18/19 TIME: 07:33 REASON FOR CONSULT Reason for Consult Chest pain H/o cardiac disease REFERRING PHYSICIAN Referring Physician Dr. Woodruff SOURCE Source: Chart review, Patient HPI History of Present Illness This is an 88 yo male who presented secondary to chest pain. Patient reports pain began the night before last. Reports she had a gathering with family. Two sons got in an arguments. Patient reports she was worked up and began having pain across her central chest. Describes as sharp. Has been intermittent. Reports pain taken her breath away. Associated with tingling/shaking of her hands. If worse with deep breathing. Makes her wheezy. No associated dizziness, diaphoresis, palpitations, or nausea/vomiting. H/o CAD. Reports PCI/stent in 2017. Stress test earlier this year that she reports as normal. Follows with Dr. Dunn. PAST MEDICAL HISTORY Past Medical History Cardiovascular: AFIB (paroxysmal), CAD, CHF, HTN, Hyperlipidemia, Other (PVD; SSS) Pulmonary: COPD, Other (severe pulmonary HTN) CENTRAL NERVOUS SYSTEM: CVA GI: GERD Heme/Onc: Anemia NOS, Other (hx of dvt) Hepatobiliary: No pertinent hx Psych: Depression Musculoskeletal: Osteoarthritis Infectious disease: No pertinent hx Renal/: Chronic renal insuff Endocrine: Diabetes (2) PAST SURGICAL HISTORY Past Surgical History Pacemaker, Total knee replacement (bilateral), Other (PCI/stent 2016) FAMILY HISTORY Family History: Other (noncontributory ) SOCIAL HISTORY Smoke: No ALCOHOL: none Drugs: None Lives: with Family CURRENT MEDICATIONS Current Medications Current Medications Aspirin (Children'S Aspirin) 324 mg 1X ONCE PO Last administered on 04/17/19at 09:55; Start 04/17/19 at 09:45; Stop 04/17/19 at 09:50; Status DC Nitroglycerin (Nitrostat) 0.4 mg PRN Q5MIN PRN SL CP RATING > 1/10 Last administered on 04/17/19at 09:56; Start 04/17/19 at 09:45; Stop 04/17/19 at 17:00; Status DC Ondansetron HCl (Zofran) 4 mg PRN Q4HRS PRN IV NAUSEA/VOMITING; Start 04/17/19 at 11:00; Stop 04/18/19 at 10:59 Acetaminophen (Tylenol) 650 mg PRN Q4HRS PRN PO FEVER; Start 04/17/19 at 11:00; Stop 04/17/19 at 17:01; Status DC Nitroglycerin (Nitrostat) 0.4 mg PRN Q5MIN PRN SL CHEST PAIN; Start 04/17/19 at 11:00; Stop 04/17/19 at 17:01; Status DC Acetaminophen (Tylenol) 650 mg PRN Q6HRS PRN PO PAIN Last administered on 04/17/19at 20:21; Start 04/17/19 at 16:45 Alprazolam (Xanax) 0.5 mg PRN TID PRN PO ANXIETY / AGITATION Last administered on 04/17/19at 18:26; Start 04/17/19 at 17:00 Amiodarone HCl (Cordarone) 200 mg BID PO Last administered on 04/17/19at 20:21; Start 04/17/19 at 21:00 Apixaban (Eliquis) 2.5 mg BID PO Last administered on 04/17/19at 20:21; Start 04/17/19 at 21:00 Aspirin (Children'S Aspirin) 81 mg DAILY PO ; Start 04/18/19 at 09:00 Atorvastatin Calcium (Lipitor) 10 mg HS PO Last administered on 04/17/19at 20:21; Start 04/17/19 at 21:00 Furosemide (Lasix) 40 mg DAILY PO ; Start 04/18/19 at 09:00 Albuterol/ Ipratropium (Duoneb) 3 ml QID NEB Last administered on 04/18/19at 05:34; Start 04/17/19 at 17:00 Lidocaine (Lidoderm) 1 patch PRN DAILY PRN TP PAIN; Start 04/17/19 at 16:45 Magnesium Oxide (Magnesium Oxide) 800 mg DAILY PO ; Start 04/18/19 at 09:00 Metoprolol Tartrate (Lopressor) 12.5 mg DAILY PO ; Start 04/18/19 at 09:00 Nitroglycerin (Nitrostat) 0.4 mg PRN Q5MIN PRN SL CHEST PAIN Last administered on 04/17/19at 20:22; Start 04/17/19 at 16:45 Pantoprazole Sodium (Protonix) 40 mg DAILYAC PO ; Start 04/18/19 at 07:30 Ropinirole HCl (Requip) 0.25 mg QHS PO Last administered on 04/17/19at 20:21; Start 04/17/19 at 21:00 Sennosides (Senna) 8.6 mg BID PO Last administered on 04/17/19 20:21; Start 04/17/19 at 21:00 Sertraline HCl (Zoloft) 25 mg HS PO Last administered on 04/17/19 20:21; Start 04/17/19 at 21:00 Trazodone HCl (Desyrel) 50 mg HS PO Last administered on 04/17/19at 20:21; Start 04/17/19 at 21:00 Vitamin D (Vitamin D3) 50,000 unit WEEKLY PO ; Start 04/24/19 at 09:00 Glimepiride (Amaryl) 4 mg DAILY PO ; Start 04/18/19 at 09:00 Insulin Glargine (Lantus Syringe) 20 unit QHS SQ Last administered on 04/17/19at 20:24; Start 04/17/19 at 21:00 Meclizine HCl (Antivert) 25 mg PRN TID PRN PO DIZZINESS; Start 04/17/19 at 17 :00 Insulin Human Lispro (HumaLOG) 0-5 UNITS TIDWMEALS SQ Last administered on 04/17/19at 17:41; Start 04/17/19 at 17:30 Dextrose (Dextrose 50%-Water Syringe) 12.5 gm PRN Q15MIN PRN IV SEE COMMENTS; Start 04/17/19 at 17:30 Active Scripts Active Reported Vitamin D2 (Ergocalciferol (Vitamin D2)) 50,000 Unit Capsule 1 Tab PO WEEKLY Glimepiride 4 Mg Tablet 1 Tab PO DAILY Zoloft (Sertraline Hcl) 25 Mg Tablet 1 Tab PO HS Trazodone Hcl 50 Mg Tablet 50 Mg PO HS Furosemide 40 Mg Tablet 40 Mg PO DAILY Senokot (Sennosides) 8.6 Mg Tablet 8.6 Mg PO BID Duoneb 0.5-3(2.5) Mg/3 Ml (Albuterol/Ipratropium) 3 Ml Ampul.neb 3 Ml NEB QID Lidocaine PATCH (Lidocaine) 1 Each Adh..patch 1 Each TP PRN DAILY PRN Humalog Kwikpen (Insulin Lispro) Unknown Strength Insuln.pen Unknown Dose SQ TIDAC Meclizine Hcl 25 Mg Tablet 1 Tab PO PRN TID PRN Tobarry Solostar (Insulin Glargine,Hum.rec.anlog) 300 Unit/1 Ml Insuln.pen 20 Unit SQ HS Dexilant (Dexlansoprazole) 60 Mg Joel. 1 Cap PO DAILY Atorvastatin Calcium 10 Mg Tablet 1 Tab PO HS Eliquis (Apixaban) 2.5 Mg Tablet 2.5 Mg PO BID Amiodarone Hcl 200 Mg Tablet 1 Tab PO BID Metoprolol Tartrate 25 Mg Tablet 0.5 Tab PO DAILY LAST DOSE GIVEN: DATE:TODAY TIME:MORNING NEXT DOSE DUE: DATE:TOMORROW TIME:MORNING Requip (Ropinirole Hcl) 0.5 Mg Tablet 0.25 Mg PO QHS LAST DOSE GIVEN: DATE: YESTERDAY TIME: AT BEDTIME NEXT DOSE DUE: DATE: TODAY TIME: AT BEDTIME Protonix (Pantoprazole Sodium) 40 Mg Tablet.dr 1 Tab PO DAILY LAST DOSE GIVEN: DATE: TODAY TIME: BEFORE BREAKFAST NEXT DOSE DUE: DATE: TOMORROW TIME: BEFORE BREAKFAST Aspirin 81 Mg Tab.chew 81 Mg PO DAILY LAST DOSE GIVEN: DATE: TODAY TIME: AM NEXT DOSE DUE: DATE: TOMORROW TIME: AM Tylenol (Acetaminophen) 325 Mg Tablet 2 Tab PO PRN Q6HRS PRN NOT GIVEN TODAY NEXT DOSE DUE: DATE: TODAY TIME: IF AND WHEN NEEDED Magnesium Oxide 400 Mg Tablet 800 Mg PO DAILY LAST DOSE GIVEN: DATE: TODAY TIME: AM NEXT DOSE DUE: DATE: TOMORROW TIME: AM NITROGLYCERIN SubLingual (Nitroglycerin) 0.4 Mg Tab.subl 0.4 Mg SL PRN Q5MIN PRN NOT GIVEN TODAY NEXT DOSE DUE: DATE: TODAY TIME: IF AND WHEN NEEDED Xanax (Alprazolam) 0.25 Mg Tablet 0.5 Mg PO PRN TID PRN NOT GIVEN TODAY NEXT DOSE DUE: DATE: TODAY TIME: IF AND WHEN NEEDED ALLERGIES Allergies: Coded Allergies: Influenza Virus Vaccines (Verified Allergy, Intermediate, GENERALIZED BODY/JOINT ACHES, 12/09/17) Penicillins (Verified Allergy, Intermediate, NAUSEA/VOMITING, 10/20/17) amoxicillin (Verified Allergy, Intermediate, Nausea/Vomiting, 10/20/17) cephalexin (Verified Allergy, Intermediate, Nausea/Vomiting, 10/20/17) clavulanic acid (Verified Allergy, Intermediate, Nausea/Vomiting, 10/20/17) metoclopramide (Verified Allergy, Intermediate, NAUSEA/VOMITING, 10/20/17) ROS Review of Systems 14 point ROS conducted with pertinent positives noted above in HPI. PHYSICAL EXAM General: Alert, Oriented X3, Cooperative, No acute distress HEENT: Atraumatic Lungs: Clear to auscultation, Normal air movement Heart: Normal S1, Normal S2, Other (100% AV paced ) Abdomen: Soft, No tenderness Extremities: No edema, Normal pulses Skin: No breakdown Neuro: Normal speech, Sensation intact Psych/Mental Status: Mental status NL, Mood NL MUSCULOSKELETAL: Osteoarthritic changes both hands VITALS Vital Signs Vital Signs Date Time Temp Pulse Resp B/P (MAP) Pulse Ox O2 Delivery O2 Flow Rate FiO2 04/18/19 05:47 97.8 76 20 117/57 (77) 98 Room Air LABS LABS Laboratory Tests Test 04/17/19 09:31 04/17/19 14:07 04/17/19 16:40 04/17/19 16:43 White Blood Count 7.3 x10^3/uL (4.0-11.0) Red Blood Count 3.81 x10^6/uL (3.50-5.40) Hemoglobin 10.9 g/dL (12.0-15.5) Hematocrit 33.8 % (36.0-47.0) Mean Corpuscular Volume 89 fL (79-100) Mean Corpuscular Hemoglobin 29 pg (25-35) Mean Corpuscular Hemoglobin Concent 32 g/dL (31-37) Red Cell Distribution Width 15.4 % (11.5-14.5) Platelet Count 201 x10^3/uL (140-400) Neutrophils (%) (Auto) 59 % (31-73) Lymphocytes (%) (Auto) 30 % (24-48) Monocytes (%) (Auto) 7 % (0-9) Eosinophils (%) (Auto) 2 % (0-3) Basophils (%) (Auto) 2 % (0-3) Neutrophils # (Auto) 4.3 x10^3uL (1.8-7.7) Lymphocytes # (Auto) 2.2 x10^3/uL (1.0-4.8) Monocytes # (Auto) 0.5 x10^3/uL (0.0-1.1) Eosinophils # (Auto) 0.1 x10^3/uL (0.0-0.7) Basophils # (Auto) 0.1 x10^3/uL (0.0-0.2) Prothrombin Time 9.7 SEC (9.4-11.4) Prothromb Time International Ratio 0.9 (0.9-1.1) Activated Partial Thromboplast Time 28 SEC (23-33) D-Dimer (Tigist) 0.46 mg/L (0.00-0.50) Sodium Level 142 mmol/L (136-145) Potassium Level 4.2 mmol/L (3.5-5.1) Chloride Level 103 mmol/L (98-107) Carbon Dioxide Level 29 mmol/L (21-32) Anion Gap 10 (6-14) Blood Urea Nitrogen 36 mg/dL (7-20) Creatinine 2.7 mg/dL (0.6-1.0) Estimated GFR (Cockcroft-Gault) 20.1 BUN/Creatinine Ratio 13 (6-20) Glucose Level 225 mg/dL (70-99) Calcium Level 9.3 mg/dL (8.5-10.1) Magnesium Level 2.0 mg/dL (1.8-2.4) Total Bilirubin 0.5 mg/dL (0.2-1.0) Aspartate Amino Transf (AST/SGOT) 21 U/L (15-37) Alanine Aminotransferase (ALT/SGPT) 14 U/L (14-59) Alkaline Phosphatase 59 U/L (46-116) Troponin I Quantitative 0.022 ng/mL (0-0.055) < 0.017 ng/mL (0-0.055) < 0.017 ng/mL (0-0.055) WM-Obs-P-Type Natriuretic Peptide 1335 pg/mL (0-449) Total Protein 7.1 g/dL (6.4-8.2) Albumin 3.8 g/dL (3.4-5.0) Albumin/Globulin Ratio 1.2 (1.0-1.7) Lipase 78 U/L (73-393) Glucose (Fingerstick) 288 mg/dL (70-99) Test 04/17/19 20:29 04/18/19 05:45 Glucose (Fingerstick) 307 mg/dL (70-99) Sodium Level 142 mmol/L (136-145) Potassium Level 3.9 mmol/L (3.5-5.1) Chloride Level 104 mmol/L (98-107) Carbon Dioxide Level 29 mmol/L (21-32) Anion Gap 9 (6-14) Blood Urea Nitrogen 36 mg/dL (7-20) Creatinine 2.6 mg/dL (0.6-1.0) Estimated GFR (Cockcroft-Gault) 21.0 Glucose Level 207 mg/dL (70-99) Calcium Level 8.8 mg/dL (8.5-10.1) ECHOCARDIOGRAM Echocardiogram <Conclusion> The left ventricular systolic function is normal and the ejection fraction is within normal range. The Ejection Fraction is 60%. Transmitral Doppler flow pattern is Grade II-pseudonormal filling dynamics. The right ventricular systolic function is normal. There is a pacemaker lead in the right ventricle. Doppler and Color Flow revealed mild aortic regurgitation. Doppler and Color Flow revealed moderate tricuspid regurgitation. There is moderate to severe pulmonary hypertension. The PA pressure was estimated at 73 mmHg. There is no evidence of significant pericardial effusion. DATE: 01/04/18 1249 ASSESSMENT/PLAN Assessment/Plan 1. Chest pain, atypical; AMI ruled out 2. CAD; PCI/stent in 2017. Reports normal stress test earlier this year. Follow with Dr. Dunn 3. Chronic diastolic CHF; LVEF 60% per echo 01/18. clinically compensated 4. COPD with severe pulmonary HTN 5. MARBIN on CKD 6. SSS: PPM (Biotronik) 7. Persistent AFIB; rate controlled with metoprolol. On Eliquis for stroke prophylaxis 8. HTN: controlled 9. Diabetes, II 10. Hyperlipidemia 11. Hx of DVT/CVA Recommendations Echo to assess LV systolic function Lipids Resume secondary prevention measures Continue Eliquis and ASA. Metoprolol for rate control Obtain cardiac records from Dr. Dunn's office Supportive care Further pending above. SHAHZAD ALFARO APRN Apr 18, 2019 07:35
[2019-04-18] MEDS: INSULIN LISPRO 300 UNITS/3 ML VIAL. SQ SCH ×3 (08:00→17:00)
[2019-04-18] MEDS: PANTOPRAZOLE 40 MG TABLET. PO SCH (08:39)
[2019-04-18] MEDS: MAGNESIUM OXIDE 400 MG TABLET PO SCH (08:39)
[2019-04-18] MEDS: FUROSEMIDE 40 MG TABLET PO SCH (08:39)
[2019-04-18] MEDS: APIXABAN 2.5 MG TABLET PO SCH ×2 (08:39→21:33)
[2019-04-18] MEDS: AMIODARONE HCL 200 MG TABLET PO SCH ×2 (08:40→21:33)
[2019-04-18] MEDS: SENNOSIDES 8.6 MG TABLET PO SCH ×2 (08:40→21:33)
[2019-04-18] MEDS: METOPROLOL TART IMMED RELEASE 25 MG TABLET PO SCH (08:40)
[2019-04-18] MEDS: GLIMEPIRIDE 2 MG TABLET PO SCH (08:40)
[2019-04-18] MEDS: ASPIRIN 81 MG TAB.CHEW PO SCH (08:40)
[2019-04-18 09:57] VITALS: BP 151/69
[2019-04-18 14:33] VITALS: BP 145/66
--- NOTE | 2019-04-18 15:32 | CARD ---
MR#: [id number] Date of Study: 04/18/2019 Ordering Physician: SHAHZAD ALFARO, Referring Physician: SHAHZAD ALFARO, Tech: Rica Bonner RDCS APPROVED REPORT EXAM: Two-dimensional and M-mode echocardiogram with Doppler and color Doppler. Other Information Quality : Good INDICATION Cardiac Disease: CAD Chest Pain Pacemaker 2D DIMENSIONS RVDd2.6 (2.9-3.5cm)Left Atrium(2D)3.8 (1.6-4.0cm) IVSd1.5 (0.7-1.1cm)Aortic Root(2D)2.6 (2.0-3.7cm) LVDd5.0 (3.9-5.9cm)PWd1.0 (0.7-1.1cm) LVDs3.5 (2.5-4.0cm)FS (%) 30.0 % SV68.2 mlLVEF(%)57.0 (>50%) Aortic Valve AoV Peak Dylan.195.9cm/sAoV VTI40.0cm AO Peak GR.15.4mmHgAO Mean GR.8mmHg GERARDO (VTI)1.46tu1AP P 1/2 Xwbu275tg Mitral Valve MV E Qofpxntq06.4cm/sMV DECEL XNME149im MV A Xxzolzof03.2cm/sE/A Ratio2.2 Tricuspid Valve TR P. Qdhpknxw166kq/sRAP KFOYVUCJ3weNv TR Peak Gr.14hxYjBQTT25wuVi LEFT VENTRICLE The left ventricle is normal size. There is mild to moderate concentric left ventricular hypertrophy. The left ventricular systolic function is normal. The Ejection Fraction is 55-60%. Apical motion con sistent with pacemaker activation. Transmitral Doppler flow pattern is Grade II-pseudonormal filling dynamics. RIGHT VENTRICLE The right ventricle is normal size. The right ventricular systolic function is normal. There is a pac emaker lead in the right ventricle. ATRIA The left atrium size is normal. The right atrium size is normal. A pacemaker lead is seen in the righ t atrium consistent with history. The interatrial septum is intact with no evidence for an atrial sep sara defect or patent foramen ovale as noted on 2-D or Doppler imaging. AORTIC VALVE The aortic valve is normal in structure and function. Doppler and Color Flow revealed mild aortic reg urgitation. Calculated aortic valve area is 1.9 cm2 with maximum pressure gradient of 15 mmHg and sherice n pressure gradient of 8 mmHg. MITRAL VALVE The mitral valve is calcified but opens well. There is no evidence of mitral valve prolapse. There is no mitral valve stenosis. Doppler and Color-flow revealed mild mitral regurgitation. TRICUSPID VALVE The tricuspid valve is normal in structure and function. Doppler and Color Flow revealed mild to mode rate tricuspid regurgitation. There is mild pulmonary hypertension. The PA pressure was estimated at 39 mmHg. There is no tricuspid valve stenosis. PULMONIC VALVE The pulmonic valve is not well visualized. Doppler and Color Flow revealed no pulmonic valvular regur gitation. There is no pulmonic valvular stenosis. GREAT VESSELS The aortic root is normal in size. The ascending aorta is normal in size. The IVC is normal in size a nd collapses >50% with inspiration. PERICARDIAL EFFUSION There is no evidence of significant pericardial effusion. Critical Notification Critical Value: No <Conclusion> The left ventricular systolic function is normal. The Ejection Fraction is 55-60%. Apical motion consistent with pacemaker activation. Transmitral Doppler flow pattern is Grade II-pseudonormal filling dynamics. Pacer lead noted in RA/RV. Mild aortic regurgitation. Mild mitral regurgitation. Mild to moderate tricuspid regurgitation. The PA pressure was estimated at 39 mmHg. There is no evidence of significant pericardial effusion. Signed by : Angelo Broussard, Electronically Approved : 04/18/2019 15:32:23
[2019-04-18 19:00] VITALS: BP 133/73
[2019-04-18] MEDS: ATORVASTATIN CALCIUM 10 MG TABLET. PO SCH (21:32)
[2019-04-18] MEDS: rOPINIRole 0.5 MG TABLET. PO SCH (21:33)
[2019-04-18] MEDS: traZODone 50 MG TABLET. PO SCH (21:33)
[2019-04-18] MEDS: ACETAMINOPHEN 325 MG TABLET PO PRN (21:34)
[2019-04-18] MEDS: SERTRALINE 25 MG TABLET. PO SCH (21:34)
[2019-04-18] MEDS: INSULIN GLARGINE SYRINGE. SQ SCH (21:41)
[2019-04-18 23:00] VITALS: BP 151/70
[2019-04-19 05:00] VITALS: BP 117/68
[2019-04-19] MEDS: IPRATRPIUM/ALBUTEROL 0.5/2.5MG 3 ML NEBU. NEB SCH ×2 (05:19→10:54)
--- NOTE | 2019-04-19 05:22 | PN ---
DATE: SUBJECTIVE: The patient is resting, slightly propped up in bed, in no apparent distress. She denied any further episodes of chest pain. Denied any shortness of breath, cough, phlegm. We did do 3 sets of cardiac enzymes that were negative and ruled out myocardial infarction. Her lab work showed that her creatinine is improving down to 2.6. PHYSICAL EXAMINATION: GENERAL: When I examined her, she looked well and was clearly in no apparent respiratory distress, pale, not jaundiced, cyanosis or thyromegaly. No jugular venous distention. No limb edema. VITAL SIGNS: Her heart rate was 73, blood pressure was 151/69, temperature was 97.8, respiratory rate 20 and oxygen saturation was 96%. HEAD, EYES, EARS, NOSE AND THROAT: Showed normocephalic, atraumatic. NECK: Supple. HEART: Showed normal first and second heart sounds. No gallop or murmur. CHEST: Clear to auscultation. No crepitation or rhonchi. ABDOMEN: Distended, soft, nontender. NEUROLOGIC: She was awake, alert, responding appropriately. All cranial nerves intact. She moves extremities without difficulty. Her intake over the last 24 hours was 110, no output was recorded. LABORATORY DATA: Her lab work this morning showed that her serum sodium was 142, potassium 3.9, chloride 104, bicarbonate 29, anion gap of 9, BUN 36, creatinine 2.6, estimated GFR was 21. Her glucose was 207, calcium was 8.8. Her serum triglycerides were 96, total cholesterol was 107, LDL was 119, VLDL was 19, HDL cholesterol was 69; the ratio was 3. ASSESSMENT: 1. Chest pain, atypical. Myocardial infarction was ruled out. 2. She has coronary artery disease, status post percutaneous coronary intervention with stent deployment. 3. Chronic diastolic congestive heart failure, left ventricular ejection fraction 60%. 4. Chronic obstructive pulmonary disease with severe pulmonary hypertension. 5. Acute on chronic kidney disease, improving. 6. Sick sinus syndrome, status post permanent pacemaker. 7. Resistant atrial fibrillation, rate controlled on Eliquis for stroke prevention. 8. Hypertension, well controlled. 9. Type 2 diabetes. 10. Hyperlipidemia. 11. History of deep venous thrombosis and cerebrovascular accident. PLAN: An echocardiogram was done, but the results are still pending. She continues to be on Eliquis, aspirin and metoprolol for rate control. We will consult Physical and Occupational Therapy and if she remains stable, she can be discharged home tomorrow. JAMES MULTANI MD DR: ESTEPHANIA/deepak JOB#: [id number] / [id number]
[2019-04-19 06:30] LABS: CALCIUM 8.9 mg/dL (8.5-10.1); CREATININE 2.4 mg/dL (0.6-1.0); GFR 23.1; POTASSIUM 3.6 mmol/L (3.5-5.1)
[2019-04-19] MEDS: INSULIN LISPRO 300 UNITS/3 ML VIAL. SQ SCH ×2 (08:00→12:24)
[2019-04-19] MEDS: APIXABAN 2.5 MG TABLET PO SCH (10:11)
[2019-04-19] MEDS: PANTOPRAZOLE 40 MG TABLET. PO SCH (10:11)
[2019-04-19] MEDS: AMIODARONE HCL 200 MG TABLET PO SCH (10:12)
[2019-04-19] MEDS: GLIMEPIRIDE 2 MG TABLET PO SCH (10:12)
[2019-04-19] MEDS: MAGNESIUM OXIDE 400 MG TABLET PO SCH (10:12)
[2019-04-19] MEDS: ASPIRIN 81 MG TAB.CHEW PO SCH (10:12)
[2019-04-19] MEDS: FUROSEMIDE 40 MG TABLET PO SCH (10:13)
[2019-04-19] MEDS: SENNOSIDES 8.6 MG TABLET PO SCH (10:13)
[2019-04-19] MEDS: METOPROLOL TART IMMED RELEASE 25 MG TABLET PO SCH (10:14)
[2019-04-19 11:18] VITALS: BP 123/74
--- NOTE | 2019-04-19 11:31 | DISCH ---
HOME HEALTH DISCHARGE/MEDS DISCHARGE INFORMATION: Discharge Date: Apr 19, 2019 Final Diagnosis: Problems Medical Problems: (1) Chest pain Status: Acute (2) CHF (congestive heart failure) Status: Acute Condition on Discharge: Stable CODE STATUS: Code Status: Full HOME HEALTH: Face to Face: I certify this patient is under my care and that I, or a nurse practitioner or physician's medicine assistant working with me, had a face to face encounter that meets the physician face to face encounter requirements with this patient on 04/19/19 Medical Condition(s): CHF, Other [facility] For: Assess Cardiopulm Status, Assess & Educate Safety Physical Therapy For: Evalulation/Treatment Occupational Therapy For: Evaluation/Treatment Homebound Status Met By: Poor coordination w/ amb. POST DISCHARGE ORDERS: Activity Instructions for Disc: Resume previous activity DIET AFTER DISCHARGE: Cardiac CERTIFICATION STATEMENT: Certification Statement: Based on the above finding, I certify that this patient is confined to the home and needs intermittent senior care care, physical therapy and/or speech therapy, or continues to need occupational therapy.~ This patient is under my care, and I have initiated the establishment of the plan of care.~ This patient will be followed by myself or a community physician who will periodically review the plan of care. DISCHARGE MEDICATIONS: Home Meds Reported Medications Ergocalciferol (Vitamin D2) (VITAMIN D2) 50,000 Unit Capsule, 1 TAB PO WEEKLY for SUPPLEMENT 01/20/19 Glimepiride (GLIMEPIRIDE) 4 Mg Tablet, 1 TAB PO DAILY for DIABETES 01/20/19 Sertraline Hcl (ZOLOFT) 25 Mg Tablet, 1 TAB PO HS for depression, #30 TAB 2 Refills 11/16/18 Trazodone Hcl (TRAZODONE HCL) 50 Mg Tablet, 50 MG PO HS for insomnia 11/12/18 Furosemide (FUROSEMIDE) 40 Mg Tablet, 40 MG PO DAILY for . 11/12/18 Sennosides (SENOKOT) 8.6 Mg Tablet, 8.6 MG PO BID for constipation, TAB 07/06/18 Ipratropium/Albuterol Sulfate (DUONEB 0.5-3(2.5) MG/3 ML) 3 Ml Ampul.neb, 3 ML NEB QID for SOB, EACH 07/06/18 Lidocaine (Lidocaine PATCH ) 1 Each Adh..patch, 1 EACH TP PRN DAILY PRN for PAIN, PATCH 07/06/18 Insulin Lispro (Humalog Kwikpen) Unknown Strength Insuln.pen, SQ TIDAC for ., EACH 07/06/18 Meclizine Hcl (MECLIZINE HCL) 25 Mg Tablet, 1 TAB PO PRN TID PRN for dizziness 07/06/18 Insulin Glargine,Hum.rec.anlog ([place] Solostar) 300 Unit/1 Ml Insuln.pen, 20 UNIT SQ HS for ., EACH 07/06/18 Dexlansoprazole (DEXILANT) 60 Mg Cap., 1 CAP PO DAILY for ., #90 CAP 3 Refills 07/06/18 Atorvastatin Calcium (ATORVASTATIN CALCIUM) 10 Mg Tablet, 1 TAB PO HS for ., #30 TAB 5 Refills 07/06/18 Apixaban (ELIQUIS) 2.5 Mg Tablet, 2.5 MG PO BID for ., TAB 07/06/18 Amiodarone Hcl (AMIODARONE HCL) 200 Mg Tablet, 1 TAB PO BID for ., #90 TAB 1 Refill 07/06/18 Metoprolol Tartrate (METOPROLOL TARTRATE) 25 Mg Tablet, 0.5 TAB PO DAILY for HIGH BLOOD PRESSURE LAST DOSE GIVEN: DATE:TODAY TIME:MORNING NEXT DOSE DUE: DATE:TOMORROW TIME:MORNING 04/23/18 Ropinirole Hcl (REQUIP) 0.5 Mg Tablet, 0.25 MG PO QHS for RESTLESS LEGS LAST DOSE GIVEN: DATE: YESTERDAY TIME: AT BEDTIME NEXT DOSE DUE: DATE: TODAY TIME: AT BEDTIME 03/05/18 Pantoprazole Sodium (PROTONIX) 40 Mg Tablet.dr, 1 TAB PO DAILY for HEARTBURN LAST DOSE GIVEN: DATE: TODAY TIME: BEFORE BREAKFAST NEXT DOSE DUE: DATE: TOMORROW TIME: BEFORE BREAKFAST 03/05/18 Aspirin (ASPIRIN) 81 Mg Tab.chew, 81 MG PO DAILY for HEART HEALTH LAST DOSE GIVEN: DATE: TODAY TIME: AM NEXT DOSE DUE: DATE: TOMORROW TIME: AM 03/05/18 Acetaminophen (TYLENOL) 325 Mg Tablet, 2 TAB PO PRN Q6HRS PRN for PAIN NOT GIVEN TODAY NEXT DOSE DUE: DATE: TODAY TIME: IF AND WHEN NEEDED 03/27/17 Magnesium Oxide (MAGNESIUM OXIDE) 400 Mg Tablet, 800 MG PO DAILY for SUPPLEMENT LAST DOSE GIVEN: DATE: TODAY TIME: AM NEXT DOSE DUE: DATE: TOMORROW TIME: AM 03/27/17 Nitroglycerin (NITROGLYCERIN SubLingual) 0.4 Mg Tab.subl, 0.4 MG SL PRN Q5MIN PRN for CHEST PAIN NOT GIVEN TODAY NEXT DOSE DUE: DATE: TODAY TIME: IF AND WHEN NEEDED 12/19/16 Alprazolam (XANAX) 0.25 Mg Tablet, 0.5 MG PO PRN TID PRN for ANXIETY / AGITATION NOT GIVEN TODAY NEXT DOSE DUE: DATE: TODAY TIME: IF AND WHEN NEEDED 12/17/16 JAMES MULTANI MD Apr 19, 2019 11:31
--- NOTE | 2019-04-19 11:43 | DS ---
DATE OF DISCHARGE: HOSPITAL COURSE: The patient is an 88-year-old -[place] female patient who came at the Emergency Room with a complaint of chest pain, mostly in the left side associated with shortness of breath. She was extensively investigated, she had 3 sets of cardiac enzymes that ruled out myocardial infarction. She was seen in consultation by the Cardiology team, has had an echocardiogram which basically showed that her left ventricular systolic function is normal, ejection fraction is 55-60%. There is apical motion consistent with pacemaker activation. Transmitral Doppler flow pattern is grade 2, pseudonormal mild filling dynamics. She has a pacer lead noted in the right atrium, right ventricle. She has mild aortic regurgitation, mild mitral regurgitation, [id number] tricuspid regurgitation. Her pulmonary artery pressure was estimated at 59 mmHg with no evidence of any significant pericardial effusion. Her kidney function has improved. In fact, her creatinine came down from 2.7 to 2.4. The patient has been up and about walking with a walker without any assistance and a decision was made to discharge her home with home health. When I saw her this morning, she was sitting comfortably in her chair, in no apparent distress. She continued to complain of some discomfort in her chest, but denied any shortness of breath. Denied any cough, phlegm or hemoptysis. PHYSICAL EXAMINATION: VITAL SIGNS: Her heart rate was 67, blood pressure was 117/68, temperature was 98, respiratory rate was 18 and oxygen saturation was 99% on room air. HEAD, EYES, EARS, NOSE AND THROAT: Showed normocephalic, atraumatic. NECK: Supple. HEART: Showed normal first and second heart sounds with no gallop or murmur. CHEST: Clear to auscultation. No crepitation or rhonchi. ABDOMEN: Distended, soft, nontender. NEUROLOGIC: She was awake, alert, responding appropriately. All cranial nerves intact. She moves extremities without difficulty. She ambulates with a walker. Her intake was 700, no output was recorded. LABORATORY DATA: This morning showed a serum sodium 142, potassium 3.6, chloride 105, bicarbonate 29, anion gap of 8, BUN 38, creatinine 2.4, estimated GFR was 23 mL per minute. Her glucose 108, calcium was 8.9. Her white cell count was 7300, hemoglobin 11, hematocrit 33, MCV 89 and platelet count 201,000. DISCHARGE MEDICATIONS: She was discharged home to continue on Tylenol 650 mg every 6 hours, alprazolam 0.25 mg 3 times a day, amiodarone 200 mg twice a day, apixaban 2.5 mg twice a day, aspirin 81 mg once a day, atorvastatin calcium 10 mg at bedtime, Dexilant 60 mg once a day, ergocalciferol vitamin D2 at 50,000 international unit once a week, furosemide 40 mg once a day, glimepiride 4 mg daily, Lantus insulin 20 units at bedtime and Humalog insulin as insulin sliding scale before meals, ipratropium bromide, albuterol sulfate for DuoNeb in 3 mL by nebulizer 4 times a day, Lidoderm patch applied topically once a day, magnesium oxide 400 mg once a day, meclizine 25 mg 3 times a day, metoprolol 12.5 mg daily, nitroglycerin 0.4 mg sublingually every 5 minutes x 3, Requip 0.25 mg at bedtime, Senna 1 tablet twice a day, sertraline for Zoloft 25 mg daily and trazodone 50 mg at bedtime for insomnia. FINAL DISCHARGE DIAGNOSES: 1. Chest pain, atypical, myocardial infarction was ruled out, acute on chronic kidney injury, improved. The patient has a multitude of other medical problems including: A. Coronary artery disease. B. Hypertension. C. Hyperlipidemia. D. Paroxysmal atrial fibrillation. E. Chronic diastolic congestive heart failure. F. Pulmonary hypertension. G. Type 2 diabetes mellitus. JAMES MULTANI MD DR: ESTEPHANIA/deepak JOB#: [id number] / [id number]
[2019-04-24] MEDS ORDERED: CHOLECALCIFEROL (VITAMIN D3) 50,000 UNIT CAPSULE PO SCH (09:00)
== END 2019-04-19 14:00 | disposition home health service (06) | DRG 682 ==
LOC: ER 09:25 → 1 SOUTH 11:17 → OBSVTOIN 11:21
PROVIDERS: ADMIT Internal Medicine; ATTEND Internal Medicine
DX: N17.9 Acute kidney failure, unspecified (principal); I50.33 Acute on chronic diastolic (congestive) heart failure; I13.0 Hypertensive heart and chronic kidney disease with heart failure and stage 1 through stage 4 chronic kidney disease, or unspecified chronic kidney disease; I48.1 Persistent atrial fibrillation; R07.89 Other chest pain; D63.1 Anemia in chronic kidney disease; E11.22 Type 2 diabetes mellitus with diabetic chronic kidney disease; E11.51 Type 2 diabetes mellitus with diabetic peripheral angiopathy without gangrene; E78.00 Pure hypercholesterolemia, unspecified; E78.5 Hyperlipidemia, unspecified; I25.10 Atherosclerotic heart disease of native coronary artery without angina pectoris; I48.0 Paroxysmal atrial fibrillation; J44.9 Chronic obstructive pulmonary disease, unspecified; K21.9 Gastro-esophageal reflux disease without esophagitis; M15.9 Polyosteoarthritis, unspecified; N18.9 Chronic kidney disease, unspecified; Z86.718 Personal history of other venous thrombosis and embolism; Z86.73 Personal history of transient ischemic attack (TIA), and cerebral infarction without residual deficits; Z95.5 Presence of coronary angioplasty implant and graft; Z96.653 Presence of artificial knee joint, bilateral; Z95.0 Presence of cardiac pacemaker; I27.20 Pulmonary hypertension, unspecified; F32.9 Major depressive disorder, single episode, unspecified; Z88.0 Allergy status to penicillin; Z88.7 Allergy status to serum and vaccine; Z88.8 Allergy status to other drugs, medicaments and biological substances
CPT/HCPCS: 36415; 71045; 80048; 80053; 80061; 82947; 83690; 83735; 83880; 84484; 85025; 85379; 85610; 85730; 93005; 93306; 94640; G0379; J1815; J7620; 97110; 97116; 97530; 99285-25

== ENCOUNTER 2019-09-05 23:04 | Inpatient (IN) | payer MEDICARE, OTHER ==
[~2019-09-05] VITALS: Ht 163.8 cm; Wt 80.1 kg
[~2019-09-05 23:04] MED LIST changes: -GLIM4TAB2 PO; +GLIM4TAB8 PO; -MAGN400T3 PO; +MAGN400T5 PO; +MECL-75 PO; -MECL25TA3 PO; +NIFE-11 PO; -NIFE30TA38 PO; -NIFE60TA16 PO; +NIFE60TA90 PO; +TRAZ-125 PO; -TRAZ-86 PO
--- NOTE | 2019-09-05 23:21 | PHYS DOC ---
Past History Past Medical History: Anxiety, Arthritis, CHF, Dementia, Diabetes, Heart Disease, Hypertension, AL, Renal Disease, Stroke, TIA, UTI Past Surgical History: Pacemaker, Other Additional Past Surgical Histo: cardiac stents Smoking: Non-smoker Alcohol Use: None Drug Use: None Adult General Chief Complaint Chief Complaint: FEVER..." I got ... fever... dizzy... weak..." HPI HPI Patient is a 89 year old female who presents with above hx and complaints of fever and chills. Patient is obviously confused on arrival. A very poor historia n. Family state patient is much more confused, weak and short of breath. Poorly no recent ill contacts. Patient did not get flu vaccination this season. Patient has history of multiple medical issues coronary artery disease hypertension, elevated lipids, proximal atrial fibrillation, chronic diastolic congestive heart failure, pulmonary hypertension, osteoarthritis, DVTs, diabetes, GERD, peripheral vascular disease, CVA and TIAs, sick sinus syndrome, chronic renal failure, dementia and gait disorder Pt. follows with Dr. Medel Review of Systems Review of Systems Constitutional: History of fever or chills [] Eyes: Denies change in visual acuity, redness, or eye pain [] HENT: Denies nasal congestion or sore throat [] Respiratory: Denies cough or shortness of breath [] Cardiovascular: No additional information not addressed in HPI [] GI: Denies abdominal pain, nausea, vomiting, bloody stools or diarrhea [] : Denies dysuria or hematuria [] Musculoskeletal: History of back pain or joint pain [] Integument: Denies rash or skin lesions [] Neurologic: Denies headache, focal weakness or sensory changes [. The patient has]history and increased confusion and generalized weakness Endocrine: Denies polyuria or polydipsia [] All other systems were reviewed and found to be within normal limits, except as documented in this note. Family History Family History Noncontributory to presentation Current Medications Current Medications See nursing for home medications Allergies Allergies Allergies Coded Allergies Type Severity Reaction Last Updated Verified Influenza Virus Vaccines Allergy Intermediate GENERALIZED BODY/JOINT ACHES 12/09/17 Yes Penicillins Allergy Intermediate NAUSEA/VOMITING 10/20/17 Yes amoxicillin Allergy Intermediate Nausea/Vomiting 10/20/17 Yes cephalexin Allergy Intermediate Nausea/Vomiting 10/20/17 Yes clavulanic acid Allergy Intermediate Nausea/Vomiting 10/20/17 Yes metoclopramide Allergy Intermediate NAUSEA/VOMITING 10/20/17 Yes Physical Exam Physical Exam Constitutional: Moderate acute distress, very confused talking to people not in the room HENT: Normocephalic, atraumatic, bilateral external ears normal, oropharynx moist, no oral exudates, nose normal. [] Eyes: PERRLA, EOMI, conjunctiva normal, no discharge. Arcus Neck: Some range of motion, no tenderness, supple, no stridor. [] Cardiovascular:Heart rate regular rhythm, no murmur []PMI to the left. Paced rhythm on monitor. Pacemaker Lungs & Thorax: Bilateral breath sounds equal at apex with scattered wheezes throughout auscultation . Does []basilar crackles Abdomen: Bowel sounds normal, soft, no tenderness, no masses, no pulsatile masses. Old surgical scar Skin: Warm, dry, no erythema, no rash. Poor turgor Back: No tenderness, no CVA tenderness. . Arthritic changes. Extremities: No tenderness, no cyanosis, no clubbing, ROM intact, ankle edema. Arthritic changes Neurologic: Alert to her name only,, moves extremities on request, has decreased plantar sensory. DTRs +2 patella and brachial Psychologic: Affect anxious, judgement obviously impaired, EKG EKG My interpretation of EKG shows a physical rate of 76. Left axis deviation. Intraventricular block. Appears to be a paced rhythm with underlying A. fib or polymorphic P waves.[] Radiology/Procedures Radiology/[place] [address] IMAGING REPORT Signed PATIENT: CARINA TREADWELL ACCOUNT: [id number] : 1930 LOCATION: ER AGE: 89 SEX: F EXAM STATUS: PRE ER ORD. PHYSICIAN: VALENCIA BARRY MD REASON: weak PROCEDURE: CT HEAD WO CONTRAST CT Head W/O Contrast: History: Weakness Comparison April 08, 2019 Axial images were obtained without contrast. There is mild diffuse atrophy. There is no mass effect, extraaxial fluid collections or hydrocephalus. There is no gross bleed. Mild, patchy periventricular and subcortical white matter hypoattenuation is seen. There is no focal loss of mora-white matter distinction to suggest acute ischemia, i.e. stroke. Impression: No acute findings. RS Compliance Statement: One or more of the following individualized dose reduction techniques were utilized for this examination: 1. Automated exposure control 2. Adjustment of the mA and/or kV according to patient size 3. Use of iterative reconstruction technique Electronically signed by: Rajani King III, MD (09/06/2019 12:46 AM) [id number] DICTATED AND SIGNED BY: RAJANI KING III, MD DATE: 09/06/19 0046 CC: VALENCIA BARRY MD; PATRICIA MEDEL MD ~ [][place] [address] IMAGING REPORT Signed PATIENT: CARINA TREADWELL ACCOUNT: [id number] : 1930 LOCATION: ER AGE: 89 SEX: F EXAM STATUS: PRE ER ORD. PHYSICIAN: VALENCIA BARRY MD REASON: cp, weak, dyspnea, cough , fever PROCEDURE: PORTABLE CHEST 1V PORTABLE CHEST 1V Clinical History: Chest pain and weakness dyspnea cough and fever Technique: AP view of the chest was obtained at 09/05/2019 11:22 PM. Comparison: April 17, 2020. Findings: The heart is top normal limits in size. The pulmonary vessels appear normal. Left-sided pacemaker is again seen. A few linear opacities lung bases are likely discoid atelectasis. Impression: No evidence of an acute cardiopulmonary process. Electronically signed by: Rajani King III, MD (09/06/2019 1:36 AM) [id number] DICTATED AND SIGNED BY: RAJANI KING III, MD DATE: 09/06/19 0136 CC: VALENCIA BARRY MD; PATRICIA MEDEL MD ~ Course & Med Decision Making Course & Med Decision Making Pertinent Labs and Imaging studies reviewed. (See chart for details) Pt. admitted to Dr. Lynn for further evaluation and treatment. Impression: 1. Mental Status Change 2. Hx. Fever 3. Hx. Dementia 4. Anemia Hgb= 10.8 5. Elevated ESR= 56 6. Elevated BUN 26/Creat 2,3- Hx. Chronic Renal Failure 7. DM glu 213 8. Elevated D-dimer 0.87 9. CHF- diastolic dysfunction BNP 2127 10.Mild Elevation of Lactic Acid 2.2 11. Influenza A [] Dragon Disclaimer Dragon Disclaimer This electronic medical record was generated, in whole or in part, using a voice recognition dictation system. Departure Departure: Disposition: 01 HOME/RESIDENCE PRIOR TO ADM Condition: STABLE Referrals: PATRICIA MEDEL MD (PCP) Conrad Disclaimer This chart was dictated in whole or in part using Voice Recognition software in a busy, high-work load, and often noisy Emergency Department environment. It may contain unintended and wholly unrecognized errors or omissions. VALENCIA BARRY MD Sep 05, 2019 23:21
[2019-09-06 00:15] LABS: BASO # 0.1 x10^3/uL (0.0-0.2); BASO % 1 % (0-3); EOS # 0.1 x10^3/uL (0.0-0.7); EOS % 1 % (0-3); HEMATOCRIT 34.1 % (36.0-47.0); HEMOGLOBIN 10.8 g/dL (12.0-15.5); LYMPH % 13 % (24-48); MEAN CORPUSCULAR HEMOGLOBIN 28 pg (25-35); MEAN CORPUSCULAR HGB CONC 32 g/dL (31-37); MEAN CORPUSCULAR VOLUME 89 fL (79-100); MONO # 0.4 x10^3/uL (0.0-1.1); MONO % 5 % (0-9); NEUT # 6.2 x10^3uL (1.8-7.7); NEUT % 80 % (31-73); PLATELET COUNT 172 x10^3/uL (140-400); RED BLOOD COUNT 3.84 x10^6/uL (3.50-5.40); RED CELL DISTRIBUTION WIDTH 15.2 % (11.5-14.5); WHITE BLOOD COUNT 7.8 x10^3/uL (4.0-11.0)
[2019-09-06 00:26] LABS: CALCIUM 9.3 mg/dL (8.5-10.1); CREATININE 2.3 mg/dL (0.6-1.0); GFR 24.2; POTASSIUM 4.1 mmol/L (3.5-5.1)
[2019-09-06 00:40] LABS: ALBUMIN 3.6 g/dL (3.4-5.0); DIRECT BILIRUBIN 0.1 mg/dL (0.0-0.2); MAGNESIUM 1.9 mg/dL (1.8-2.4); TOTAL BILIRUBIN 0.2 mg/dL (0.2-1.0); TOTAL PROTEIN 7.5 g/dL (6.4-8.2)
--- NOTE | 2019-09-06 00:49 | RAD ---
CT Head W/O Contrast: History: Weakness Comparison April 08, 2019 Axial images were obtained without contrast. There is mild diffuse atrophy. There is no mass effect, extraaxial fluid collections or hydrocephalus. There is no gross bleed. Mild, patchy periventricular and subcortical white matter hypoattenuation is seen. There is no focal loss of mora-white matter distinction to suggest acute ischemia, i.e. stroke. Impression: No acute findings. PQRS Compliance Statement: One or more of the following individualized dose reduction techniques were utilized for this examination: 1. Automated exposure control 2. Adjustment of the mA and/or kV according to patient size 3. Use of iterative reconstruction technique Electronically signed by: Hira Ruiz III, MD (09/06/2019 12:46 AM) [id number]
[2019-09-06 01:19] LABS: SEDIMENTATION RATE 56 (0-25)
[2019-09-06 01:38] LABS: BARBITURATES NEG (NEG); BENZODIAZEPINES POS (NEG); CANNABINOIDS NEG (NEG); COCAINE NEG (NEG); METHADONE NEG (NEG); OPIATES NEG (NEG); PHENCYCLIDINE NEG (NEG)
[2019-09-06 01:39] LABS: BILIRUBIN,URINE NEG (NEG); CLARITY,URINE CLEAR; COLOR,URINE YELLOW; GLUCOSE,URINE NEG (NEG); NITRITE,URINE NEG (NEG); UROBILINOGEN,URINE 0.2 mg/dL (0.2 mg/dL)
--- NOTE | 2019-09-06 01:39 | RAD ---
PORTABLE CHEST 1V Clinical History: Chest pain and weakness dyspnea cough and fever Technique: AP view of the chest was obtained at 09/05/2019 11:22 PM. Comparison: April 17, 2020. Findings: The heart is top normal limits in size. The pulmonary vessels appear normal. Left-sided pacemaker is again seen. A few linear opacities lung bases are likely discoid atelectasis. Impression: No evidence of an acute cardiopulmonary process. Electronically signed by: Hira Ruiz III, MD (09/06/2019 1:36 AM) [id number]
[2019-09-06 01:40] LABS: BACTERIA,URINE 0 /HPF (0-FEW); RBC,URINE OCC /HPF (0-2); SQUAMOUS EPITHELIAL CELL,UR OCC /LPF; WBC,URINE OCC /HPF (0-4)
[2019-09-06 01:41] LABS: AMPHETAMINE/METHAMPHETAMINE NEG (NEG)
--- NOTE | 2019-09-06 02:05 | EKG ---
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
[2019-09-06 03:40] LABS: INFLUENZA A PATIENT POSITIVE (NEGATIVE); INFLUENZA B PATIENT NEGATIVE (NEGATIVE)
[2019-09-06] MEDS ORDERED: OSELTAMIVIR 75 MG CAPSULE PO ONE (04:00)
[2019-09-06] MEDS ORDERED: ONDANSETRON PF 4 MG/2 ML VIAL. IV PRN (04:15)
[2019-09-06] MEDS ORDERED: OSELTAMIVIR 30 MG CAPSULE PO ONE (04:30)
[2019-09-06] MEDS ORDERED: ANTI-COAG MONITOR BY PHARMACY. MC PRN (04:45)
[2019-09-06] MEDS ORDERED: ENOXAPARIN ** NOTE DOSE ** SYRINGE SQ SCH (05:00)
[2019-09-06 06:11] VITALS: BP 128/62
--- NOTE | 2019-09-06 06:40 | NUR ---
The patient, CARINA TREADWELL, 89 y/o, F admitted by JAMES MULTANI MD, was given written information regarding hospital policies, unit procedures and contact persons. Valuables were checked and left in room.
[2019-09-06] MEDS: IPRATRPIUM/ALBUTEROL 0.5/2.5MG 3 ML NEBU. NEB SCH ×6 (08:00→23:18)
[2019-09-06] MEDS: ACETAMINOPHEN 325 MG TABLET PO PRN ×2 (09:36→23:43)
[2019-09-06 11:18] VITALS: BP 136/65
--- NOTE | 2019-09-06 12:57 | NUR ---
IP: patient + influenza, requires droplet precautions until 5 days of treatment and 24 hours without fever, whichever is longer.
--- NOTE | 2019-09-06 13:21 | RAD ---
VENOUS LOWER EXT BILATERAL History: Shortness of breath. Chest pain. Leg discomfort. Comparison: None. Discussion: Multiple longitudinal and transverse high resolution real-time images of the venous system of bilateral lower extremity were obtained with color and Doppler sampling. The common femoral, superficial femoral, popliteal and proximal calf veins are all patent and demonstrate normal flow and compressibility. Normal respiratory phasicity and augmentation is present. Impression: 1. No evidence of deep vein thrombosis. Electronically signed by: Jamar Drew DO (09/06/2019 1:17 PM) [id number]
[2019-09-06 16:10] VITALS: BP 92/51
[2019-09-06] MEDS ORDERED: ACETAMINOPHEN 325 MG TABLET PO PRN (17:00)
[2019-09-06] MEDS: INSULIN LISPRO 300 UNITS/3 ML VIAL. SQ SCH (17:00)
[2019-09-06] MEDS ORDERED: LIDOCAINE (700MG/PATCH) PATCH. TP PRN (17:00)
[2019-09-06] MEDS ORDERED: NITROGLYCERIN SUBLINGUAL 0.4 MG BOTTLE OF 25. SL PRN (17:00)
[2019-09-06] MEDS: IV NORMAL SALINE 1,000ML 1,000 ML IV SCH (17:00)
[2019-09-06] MEDS ORDERED: DEXTROSE 50% 25 GM / 50ML DISP.SYRIN. IV PRN (17:00)
[2019-09-06] MEDS ORDERED: MECLIZINE 12.5 MG TABLET. PO PRN (17:30)
--- NOTE | 2019-09-06 17:45 | HP ---
ADMIT DATE: 09/06/2019 HISTORY OF PRESENT ILLNESS: The patient is an 89-year-old -[place] female patient who came to the Emergency Room complaining of fever, being dizzy and weak. The patient obviously was very confused on arrival. The family said the patient is much more confused, weak and short of breath. She did not get her flu vaccination this season. The patient has history of multiple medical issues including coronary artery disease, hypertension, elevated lipids. She was evaluated in the Emergency Room and her EKG showed that she was in sinus rhythm. Her CT scan of the head showed no acute finding. Chest x-ray showed no evidence of acute cardiopulmonary process. She was found to be positive for influenza A, but negative for influenza B. Urinalysis was unremarkable and toxic screen was positive for benzodiazepine and the patient was admitted with altered mental status. Her daughter stated that she has been hallucinating, talking to people that are not there. She also has been weak and has fallen multiple times about 4 times in the last week. PAST MEDICAL HISTORY: Significant for coronary artery disease, essential hypertension, hypercholesterolemia, paroxysmal atrial fibrillation, chronic diastolic congestive heart failure, pulmonary hypertension. She is also known to have chronic anemia, generalized osteoarthritis, previous history of deep vein thrombosis, type 2 diabetes mellitus, gastroesophageal reflux disease, peripheral arterial disease, history of stroke with no residual effect and sick sinus syndrome as well as chronic renal failure. PAST SURGICAL HISTORY: Significant for permanent pacemaker placement as well as bilateral total knee arthroplasty. FAMILY HISTORY: Unremarkable, noncontributory. SOCIAL HISTORY: She lives at home with her son. She does not smoke, drink alcohol or use any recreational drugs. She ambulates with a walker. ALLERGIES: SHE IS ALLERGIC TO INFLUENZA VIRUS VACCINE, PENICILLIN, AMOXICILLIN, CEPHALEXIN, AUGMENTIN WELL METOCLOPRAMIDE. MEDICATIONS: She is currently on following medications: She is on ipratropium bromide, albuterol sulfate by nebulizer 4 times a day, apixaban 2.5 mg twice a day, amiodarone 200 mg twice a day, atorvastatin 10 mg at bedtime, nitroglycerin 0.4 mg sublingual every 5 minutes x 3, metoprolol tartrate 25 mg and she takes 12.5 mg once a day, aspirin 81 mg once a day, Tylenol 650 mg every 4 hours, sertraline 25 mg at bedtime, trazodone 50 mg at bedtime, alprazolam 0.5 mg 3 times a day, Requip 0.25 mg at bedtime, furosemide 40 mg once a day, magnesium oxide 400 mg once a day, senna 1 tablet twice a day, meclizine 25 mg 3 times a day, Dexilant 60 mg once a day, Protonix 40 mg once a day. She is on Lantus insulin 20 units at bedtime. She is on Humalog insulin 3 times a day before meals. She is on glimepiride 4 mg once a day, Lidoderm patch 1 patch topically on for 12 hours and off for 12 hours, ergocalciferol/vitamin D2 50,000 units once a week. PHYSICAL EXAMINATION: GENERAL: On arrival to the Emergency Room, she was clearly lethargic, arousable, pale, no jaundice, cyanosis or thyromegaly. No jugular venous distention. No limb edema. VITAL SIGNS: Her heart rate was 78, blood pressure was 128/62, temperature was 99, respiratory rate was 18 and oxygen saturation was 96%. HEAD, EYES, EARS, NOSE AND THROAT: Normocephalic, atraumatic. NECK: Supple. HEART: Showed normal first and second heart sounds. No gallop or murmur. CHEST: Clear to auscultation. No crepitation or rhonchi. ABDOMEN: Distended, soft, nontender. NEUROLOGIC: She is lethargic, but arousable. She does open her eyes, tracks and responds appropriately. All cranial nerves intact. EXTREMITIES: She moves extremities without difficulty. LABORATORY DATA: Her lab work on arrival showed a white cell count of 7800, hemoglobin 11, hematocrit 34, MCV 89 and platelet count of 172,000. Her chemistry showed a serum sodium 143, potassium 4.1, chloride 102, bicarbonate 32, anion gap of 9, BUN 26, creatinine 2.3, estimated GFR was 24, and glucose was 213, calcium was 9.3, magnesium was 1.9. Total bilirubin, AST, ALT, alkaline phosphatase were normal. CK was 68. Beta natriuretic peptide was 2128. Total protein was 7.5, albumin was 3.6. Lipase was 73. Her prothrombin time, INR and aPTT were normal. D-dimer slightly elevated at 0.87. Urinalysis was essentially unremarkable. Toxic screen was positive for benzodiazepine and her influenza A was positive and influenza B was negative. Her CT scan of the head was unremarkable as well as her chest x-ray and venous Doppler ultrasound of both lower extremities was negative for deep vein thrombosis. ASSESSMENT AND PLAN: In summary, this is an 89-year-old female patient who was admitted with altered mental status, likely due to delirium induced by the flu. She has a multitude of medical problems including acute on chronic kidney injury. She has also hypertension, hypercholesterolemia, paroxysmal atrial fibrillation, chronic diastolic congestive heart failure, pulmonary hypertension, chronic anemia, generalized osteoarthritis, history of deep vein thrombosis, type 2 diabetes, gastroesophageal reflux disease and peripheral arterial disease. Plan is to continue with Tamiflu based on her kidney function. We will start her on gentle hydration. We will continue obviously monitor her lab work closely. We will start physical and occupational therapy tomorrow given that recurrent falls and altered mental status. The patient might require rehabilitation. We will obviously discuss that after her acute status improves. JAMES MULTANI MD DR: ESTEPHANIA/deepak JOB#: [id number] / [id number]
[2019-09-06 19:24] VITALS: BP 106/50
[2019-09-06] MEDS: INSULIN GLARGINE SYRINGE. SQ SCH (21:00)
[2019-09-06] MEDS: APIXABAN 2.5 MG TABLET PO SCH (21:22)
[2019-09-06] MEDS: SENNOSIDES 8.6 MG TABLET PO SCH (21:22)
[2019-09-06] MEDS: traZODone 50 MG TABLET. PO SCH (21:23)
[2019-09-06] MEDS: AMIODARONE HCL 200 MG TABLET PO SCH (21:23)
[2019-09-06] MEDS: SERTRALINE 25 MG TABLET. PO SCH (21:23)
[2019-09-06] MEDS: rOPINIRole 0.25 MG TABLET. PO SCH (21:23)
[2019-09-06] MEDS: ATORVASTATIN CALCIUM 10 MG TABLET. PO SCH (21:23)
[2019-09-06 22:49] VITALS: BP 143/63
--- NOTE | 2019-09-06 23:53 | NUR ---
Pt running low grade temp of 100.4 and achiness, PRN Tylenol given as ordered.
[2019-09-07] VITALS (7 sets, daily range): BP systolic 105–171; BP diastolic 36–70
[2019-09-07] MEDS: IPRATRPIUM/ALBUTEROL 0.5/2.5MG 3 ML NEBU. NEB SCH ×4 (04:25→20:34)
[2019-09-07] MEDS: IV NORMAL SALINE 1,000ML 1,000 ML IV SCH (06:01)
[2019-09-07 07:42] LABS: BASO % 1 % (0-3); EOS # 0.1 x10^3/uL (0.0-0.7); EOS % 2 % (0-3); HEMATOCRIT 30.9 % (36.0-47.0); HEMOGLOBIN 9.8 g/dL (12.0-15.5); LYMPH # 1.5 x10^3/uL (1.0-4.8); LYMPH % 29 % (24-48); MEAN CORPUSCULAR HEMOGLOBIN 28 pg (25-35); MEAN CORPUSCULAR HGB CONC 32 g/dL (31-37); MEAN CORPUSCULAR VOLUME 89 fL (79-100); MONO # 0.4 x10^3/uL (0.0-1.1); MONO % 9 % (0-9); NEUT % 59 % (31-73); PLATELET COUNT 139 x10^3/uL (140-400); RED BLOOD COUNT 3.49 x10^6/uL (3.50-5.40); RED CELL DISTRIBUTION WIDTH 15.6 % (11.5-14.5)
[2019-09-07 08:00] LABS: ALBUMIN 3.1 g/dL (3.4-5.0); ALBUMIN/GLOBULIN RATIO 0.9 (1.0-1.7); CALCIUM 8.7 mg/dL (8.5-10.1); CREATININE 2.3 mg/dL (0.6-1.0); GFR 24.2; POTASSIUM 3.7 mmol/L (3.5-5.1); TOTAL BILIRUBIN 0.2 mg/dL (0.2-1.0); TOTAL PROTEIN 6.4 g/dL (6.4-8.2)
[2019-09-07] MEDS: INSULIN LISPRO 300 UNITS/3 ML VIAL. SQ SCH ×3 (08:00→16:59)
[2019-09-07] MEDS: OSELTAMIVIR 30 MG CAPSULE PO SCH (08:37)
[2019-09-07] MEDS: SENNOSIDES 8.6 MG TABLET PO SCH ×2 (08:38→21:42)
[2019-09-07] MEDS: ASPIRIN 81 MG TAB.CHEW PO SCH (08:38)
[2019-09-07] MEDS: GLIMEPIRIDE 2 MG TABLET PO SCH (08:38)
[2019-09-07] MEDS: MAGNESIUM OXIDE 400 MG TABLET PO SCH (08:38)
[2019-09-07] MEDS: APIXABAN 2.5 MG TABLET PO SCH ×2 (08:38→21:42)
[2019-09-07] MEDS: AMIODARONE HCL 200 MG TABLET PO SCH ×2 (08:38→21:42)
[2019-09-07] MEDS: PANTOPRAZOLE 40 MG TABLET. PO SCH (08:38)
[2019-09-07] MEDS ORDERED: ACETAMINOPHEN 325 MG TABLET PO ONE (08:43)
[2019-09-07] MEDS: ACETAMINOPHEN 325 MG TABLET PO PRN (08:50)
[2019-09-07] MEDS ORDERED: PANTOPRAZOLE 40 MG TABLET. PO SCH (09:00)
[2019-09-07] MEDS: ATORVASTATIN CALCIUM 10 MG TABLET. PO SCH (21:41)
[2019-09-07] MEDS: SERTRALINE 25 MG TABLET. PO SCH (21:42)
[2019-09-07] MEDS: traZODone 50 MG TABLET. PO SCH (21:42)
[2019-09-07] MEDS: rOPINIRole 0.25 MG TABLET. PO SCH (21:43)
[2019-09-07] MEDS: INSULIN GLARGINE SYRINGE. SQ SCH (21:51)
--- NOTE | 2019-09-07 22:43 | PN ---
DATE: 09/07/2019 SUBJECTIVE: The patient is definitely more awake, alert, more lucid and is now able to eat and drink. Her blood pressure is slightly better today, though she continued to have cough, is mostly dry. PHYSICAL EXAMINATION: GENERAL: When I examined her, she was somewhat pale, but no jaundice, cyanosis or thyromegaly. No jugular venous distention. No limb edema. VITAL SIGNS: Her heart rate was 68, blood pressure 105/36, temperature was 98, respiratory rate was 20, and oxygen saturation was 96%. HEAD, EYES, EARS, NOSE AND THROAT: Normocephalic, atraumatic. NECK: Supple. HEART: Showed normal first and second heart sounds. No gallop or murmur. CHEST: Clear to auscultation. No crepitation or rhonchi. ABDOMEN: Distended, soft, nontender. NEUROLOGIC: She is definitely more awake, alert, lucid, apparently she has been hallucinating past few days. She moves her extremities without difficulty. She is able to ambulate. Her main complaint was pain in her neck for which she used to use Lidoderm patch. Her intake over the last 24 hours was 1796, no output was recorded. LABORATORY DATA: Her lab work this morning showed a white cell count 5000, hemoglobin 10, hematocrit 30, MCV 89 and platelet count of 139,000. Serum sodium was 143, potassium 3.7, chloride 104, bicarbonate 30, anion gap of 9, BUN 28, creatinine 2.3, estimated GFR was 24 mL per minute. Her glucose was 103, calcium was 8.7. Total bilirubin, AST, ALT, alkaline phosphatase were normal. Total protein 6.4, albumin was 3.1. ASSESSMENT: 1. Influenza A. 2. Altered mental status, likely due to and delirium induced flu. She has multiple medical problems including: A. Acute on chronic kidney injury. B. Hypertension. C. Hypercholesterolemia. D. Paroxysmal atrial fibrillation. E. Chronic diastolic congestive heart failure. F. Pulmonary hypertension. G. Chronic anemia. PLAN: My plan is to continue with Tamiflu for now at 30 mg once a day. Continue with all other medication. I am concerned that she might go into heart failure, so that we discontinued her IV fluid. We will evaluate her tomorrow and decide on further management accordingly. JAMES MULTANI MD DR: Anand JOB#: [id number] / [id number]
[2019-09-08] MEDS: IPRATRPIUM/ALBUTEROL 0.5/2.5MG 3 ML NEBU. NEB SCH ×4 (04:59→20:00)
[2019-09-08 06:40] LABS: HEMATOCRIT 28.1 % (36.0-47.0); RED BLOOD COUNT 3.18 x10^6/uL (3.50-5.40); RED CELL DISTRIBUTION WIDTH 15.5 % (11.5-14.5); WHITE BLOOD COUNT 5.4 x10^3/uL (4.0-11.0)
[2019-09-08 06:44] LABS: CALCIUM 8.4 mg/dL (8.5-10.1); CREATININE 2.2 mg/dL (0.6-1.0); GFR 25.4
[2019-09-08] MEDS: INSULIN LISPRO 300 UNITS/3 ML VIAL. SQ SCH ×3 (07:42→16:59)
[2019-09-08 07:45] VITALS: BP 116/55
[2019-09-08] MEDS: ASPIRIN 81 MG TAB.CHEW PO SCH (07:46)
[2019-09-08] MEDS: SENNOSIDES 8.6 MG TABLET PO SCH ×3 (07:46→21:07)
[2019-09-08] MEDS: PANTOPRAZOLE 40 MG TABLET. PO SCH (07:46)
[2019-09-08] MEDS: MAGNESIUM OXIDE 400 MG TABLET PO SCH (07:46)
[2019-09-08] MEDS: AMIODARONE HCL 200 MG TABLET PO SCH ×2 (07:47→21:07)
[2019-09-08] MEDS: APIXABAN 2.5 MG TABLET PO SCH ×2 (07:47→21:07)
[2019-09-08] MEDS: GLIMEPIRIDE 2 MG TABLET PO SCH (07:47)
[2019-09-08] MEDS: OSELTAMIVIR 30 MG CAPSULE PO SCH (07:49)
--- NOTE | 2019-09-08 09:50 | RAD ---
Cervical spine radiograph 09/08/2019 8:00 AM INDICATION: Head and neck pain COMPARISON: CT head and cervical spine 04/08/2019 TECHNIQUE: Lateral, AP and odontoid views of the cervical spine are provided. FINDINGS: Alignment of the cervical spine appears normal. No acute fracture is identified. Degenerative changes are noted at the atlantoaxial articulation. Anterior cervical discectomy and fusion is identified at C5-C6. There is no fracture involving the hardware. No lucency surrounding the hardware. Left chest wall cardiac device is partially profiled. Atherosclerotic changes of the thoracic aorta are present. There is mild disc height loss at C6-C7. Intramarginal osteophytosis is identified from C2-C3 through C4-C5. There is moderate facet arthropathy at C3-C4 and C4-C5. There is moderate uncovertebral joint disease, most prominent at C4-C5 and C5-C6. Lateral masses of C1 articulate appropriately with the C2 vertebral body. Degenerative changes are noted at the left C1-C2 articulation. IMPRESSION: Anterior cervical discectomy and fusion hardware is identified at the C6 without evidence for hardware failure. Mild to moderate cervical spondylosis, as described in detail above. Electronically signed by: Yoko Peoples MD (09/08/2019 9:48 AM) [id number]
[2019-09-08 10:48] VITALS: BP 129/57
--- NOTE | 2019-09-08 13:58 | PN ---
DATE: 09/08/2019 SUBJECTIVE: The patient is sitting in her chair, eating her lunch comfortably, in no apparent distress. She is definitely more awake, alert. Her main complaint is pain in her right shoulder as apparently she fell at home, landed on her right shoulder. We did x-ray of her cervical spine and that showed that she has anterior cervical diskectomy and fusion, hardware is identified at the C6 without evidence of hardware failure, mild to moderate cervical spondylosis as described in detail above. PHYSICAL EXAMINATION: GENERAL: When I examined her this morning, she looked well and was clearly back to her usual self, awake, alert, slightly pale, but no jaundice, cyanosis, or thyromegaly. No jugular venous distension. No lower limb edema. VITAL SIGNS: Her heart rate was 75, blood pressure 129/57, temperature 97.7, respiratory rate 20, and oxygen saturation was 98% on room air. HEAD, EYES, EARS, NOSE AND THROAT: Showed normocephalic, atraumatic. NECK: Supple. HEART: Showed normal first and second heart sounds. No gallop or murmur. CHEST: Showed central trachea, equal bilateral expansion, air entry, vesicular sounds with crepitation or rhonchi. ABDOMEN: Distended, soft, nontender. NEUROLOGIC: She is definitely more awake, alert, responding appropriately. All cranial nerves intact. She moves extremities without difficulty, although she does have severe pain in her right shoulder on movement with tenderness to palpation. Her intake over the last 24 hours was 1800, no output was recorded. LABORATORY DATA: Her lab work this morning showed her white cell count to be 5400, hemoglobin 9, hematocrit 28, MCV 88 and platelet count of 129,000. Serum sodium 142, potassium 4, chloride 107, bicarbonate 29, anion gap of 6, BUN 24, creatinine 2.2, estimated GFR was 25 mL per minute. His glucose was 69, calcium was 8.4. His prothrombin time, INR and aPTT are normal. D-dimer was slightly elevated at 0.87. However, she is already on Eliquis. ASSESSMENT: 1. Influenza A. 2. Altered mental status, likely due to delirium induced by the flu. 3. She has multiple other medical problems including: A. Acute on chronic kidney injury, improving. B. Hypertension. C. Hypercholesterolemia. D. Paroxysmal atrial fibrillation. E. Chronic diastolic congestive heart failure. F. Pulmonary hypertension. G. Chronic anemia. 4. She has fallen and complaining of pain in her right shoulder. PLAN: To continue with Tamiflu 30 mg once a day. Continue with all other medication. I will arrange for her to have x-ray of her right shoulder and we will decide the further management. JAMES MULTANI MD DR: ESTEPHANIA/deepak JOB#: [id number] / [id number]
--- NOTE | 2019-09-08 14:17 | RAD ---
EXAM: Right shoulder, 3 views. HISTORY: Fall. Pain. COMPARISON: None. FINDINGS: 3 views of the right shoulder obtained. There is no fracture. There is glenohumeral joint space narrowing and degenerative spurring. There is also degenerative spurring involving the acromioclavicular joint. There is decreased subacromial space suggesting a chronic rotator cuff tear. There is degenerative change involving the visualized cervical spine. IMPRESSION: 1. Mild glenohumeral and acromioclavicular joint osteoarthritis. 2. Decreased subacromial space. This may be projectional or due to a rotator cuff tear. Electronically signed by: Bertha Castrejon MD (09/08/2019 2:14 PM) [facility] [place]
[2019-09-08 14:20] VITALS: BP 106/53
[2019-09-08 15:52] VITALS: BP 125/49
--- NOTE | 2019-09-08 15:54 | NUR ---
Patient has been alert and oriented to self, and place only this shift. Patient has repeatedly attempted to ambulate out of bed with out help multiple times this shift. Patient has been educated multiple times about using call light and not trying to leave bed with out help. Patient verifies understanding and states " i don't care, I want to go home. I am supposed to leave." Patient has been told multiple times that she is not leaving today due to not being medically stable Patient speech is clear, garbled at times. Cooperative with cares at times, uncooperative but not combative with cares at other times this shift. Patient is currently resting in bed at this time.
[2019-09-08 20:44] VITALS: BP 131/54
[2019-09-08] MEDS: INSULIN GLARGINE SYRINGE. SQ SCH (21:00)
[2019-09-08] MEDS: SERTRALINE 25 MG TABLET. PO SCH (21:07)
[2019-09-08] MEDS: rOPINIRole 0.25 MG TABLET. PO SCH (21:07)
[2019-09-08] MEDS: ACETAMINOPHEN 325 MG TABLET PO PRN (21:07)
[2019-09-08] MEDS: traZODone 50 MG TABLET. PO SCH (21:07)
[2019-09-08] MEDS: ATORVASTATIN CALCIUM 10 MG TABLET. PO SCH (21:07)
[2019-09-08 22:49] VITALS: BP 130/50
[2019-09-09] MEDS: IPRATRPIUM/ALBUTEROL 0.5/2.5MG 3 ML NEBU. NEB SCH ×3 (04:36→15:17)
[2019-09-09 04:44] VITALS: BP 152/61
[2019-09-09] MEDS: INSULIN LISPRO 300 UNITS/3 ML VIAL. SQ SCH ×2 (08:00→11:46)
[2019-09-09] MEDS: APIXABAN 2.5 MG TABLET PO SCH (08:15)
[2019-09-09] MEDS: MAGNESIUM OXIDE 400 MG TABLET PO SCH (08:15)
[2019-09-09] MEDS: ASPIRIN 81 MG TAB.CHEW PO SCH (08:15)
[2019-09-09] MEDS: SENNOSIDES 8.6 MG TABLET PO SCH (08:15)
[2019-09-09] MEDS: PANTOPRAZOLE 40 MG TABLET. PO SCH (08:15)
[2019-09-09] MEDS: AMIODARONE HCL 200 MG TABLET PO SCH (08:15)
[2019-09-09] MEDS: GLIMEPIRIDE 2 MG TABLET PO SCH (08:15)
[2019-09-09] MEDS: OSELTAMIVIR 30 MG CAPSULE PO SCH (08:16)
[2019-09-09 11:40] VITALS: BP 128/51
[2019-09-09 14:58] VITALS: BP 130/52
--- NOTE | 2019-09-09 17:12 | NUR ---
Patient being transferred to [facility] for pt/ot eval and treatment.
--- NOTE | 2019-09-09 19:43 | DS ---
DATE OF DISCHARGE: 09/09/2019 HOSPITAL COURSE: The patient is an 89-year-old -[place] female patient who was admitted with fever, feeling dizzy, weak, confused. She also complained of shortness of breath. She was extensively investigated in the Emergency Room, was found to be positive for influenza A, but negative for influenza B. Her urinalysis was unremarkable. Toxic screen was positive for benzodiazepine, was admitted with altered mental status, Influenza A and was also found to have mild dehydration and marked weakness. She apparently has multiple falls, also she had about 3 times the last week and therefore, she was started on Tamiflu, gentle rehydration and her mental status has dramatically improved. The patient continued to be very weak and tired, debilitated and therefore, a decision was made to transfer her to swing bed to continue the process of rehabilitation. PHYSICAL EXAMINATION: GENERAL: When I saw her today, she was resting slightly propped up in bed, in no apparent respiratory distress. She was pale, no jaundice, cyanosis or thyromegaly. No jugular venous distention. No lower limb edema. VITAL SIGNS: Her heart rate was 75, blood pressure 128/51, temperature was 98.5, respiratory rate was 20, and oxygen saturation was 96% on room air. HEAD, EYES, EARS, NOSE AND THROAT: Showed normocephalic, atraumatic. NECK: Supple. HEART: Showed normal first and second heart sounds. No gallop, rub or murmur. CHEST: Clear to auscultation. No crepitation or rhonchi. ABDOMEN: Distended, soft, nontender. No guarding or rigidity. No organomegaly. All hernial orifice intact. Bowel sounds normal. NEUROLOGIC: She was definitely more awake, alert. Other cranial nerves are intact. She moves extremities without difficulty, although she continued to be markedly weak and debilitated. Her intake over the last 24 hours was 718, output was recorded. LABORATORY WORK: Showed a white cell count 5400, hemoglobin 9, hematocrit 28, MCV 88 and platelet count of 129,000. Her chemistry showed that her serum sodium 142, potassium 4, chloride 107, bicarbonate 29, anion gap of 6, BUN 24, creatinine 2.2, estimated GFR was 25 mL per minute. Her glucose 69, calcium was 8.4. Her prothrombin time, INR and aPTT were normal. Her D-dimer slightly elevated; however, the patient is already on apixaban. Urinalysis was unremarkable. Toxic screen was positive only for benzodiazepine and obviously she has influenza A was positive, but B was negative. DISCHARGE MEDICATIONS: She will be discharged to swing bed to continue on Tamiflu for 2 more days and continue on all other medication. Her medication include the following: Tylenol 650 mg every 6 hours, Alprazolam 0.25 mg 3 times a day, amiodarone 200 mg twice a day, Eliquis 2.5 mg twice a day, aspirin 81 mg once a day, atorvastatin calcium 10 mg at bedtime, Dexilant 60 mg once a day, ergocalciferol vitamin D2 50,000 units once a week, furosemide 40 mg daily, glimepiride 4 mg once a day, Lantus insulin 20 units at bedtime, insulin lispro or Humalog insulin as per insulin sliding scale, ipratropium bromide, albuterol sulfate for DuoNeb 3 mL by nebulizer 4 times a day, Lidoderm patch applied topically once a day, magnesium oxide 800 mg daily, meclizine 25 mg 3 times a day, metoprolol tartrate 25 mg, takes half a tablet once a day, nitroglycerin 0.4 mg once a day, Protonix 40 mg once a day, ropinirole for Requip 0.25 mg at bedtime, senna 1 tablet twice a day and sertraline for Zoloft 25 mg at bedtime, trazodone 50 mg at bedtime. FINAL DISCHARGE DIAGNOSES: 1. Influenza A. 2. Altered mental status, likely delirium induced by the flu, resolving. 3. She has multiple other medical problems including acute on chronic kidney injury, improved. 4. Hypertension. 5. Hypercholesterolemia. 6. Paroxysmal atrial fibrillation. 7. Chronic diastolic congestive heart failure. 8. Pulmonary hypertension. 9. Chronic anemia. 10. Multiple falls, generalized weakness and debility, she was going to continue the process of rehabilitation. JAMES MULTANI MD DR: ESTEPHANIA/deepak JOB#: [id number] / [id number]
[2019-09-13] MEDS ORDERED: CHOLECALCIFEROL (VITAMIN D3) 50,000 UNIT CAPSULE PO SCH (09:00)
== END 2019-09-09 17:18 | DRG 682 ==
LOC: ER 23:04 → 1 SOUTH 09-06 02:00 → LND 09-09 17:13 → 1 SOUTH 09-09 17:17
PROVIDERS: ADMIT Internal Medicine; ATTEND Internal Medicine
DX: N17.0 Acute kidney failure with tubular necrosis (principal); G92 Toxic encephalopathy; I13.0 Hypertensive heart and chronic kidney disease with heart failure and stage 1 through stage 4 chronic kidney disease, or unspecified chronic kidney disease; D64.9 Anemia, unspecified; E11.22 Type 2 diabetes mellitus with diabetic chronic kidney disease; E11.51 Type 2 diabetes mellitus with diabetic peripheral angiopathy without gangrene; J10.1 Influenza due to other identified influenza virus with other respiratory manifestations; E78.00 Pure hypercholesterolemia, unspecified; E86.0 Dehydration; F03.90 Unspecified dementia, unspecified severity, without behavioral disturbance, psychotic disturbance, mood disturbance, and anxiety; I25.10 Atherosclerotic heart disease of native coronary artery without angina pectoris; I27.20 Pulmonary hypertension, unspecified; I48.0 Paroxysmal atrial fibrillation; N18.9 Chronic kidney disease, unspecified; R29.6 Repeated falls; Z86.718 Personal history of other venous thrombosis and embolism; Z86.73 Personal history of transient ischemic attack (TIA), and cerebral infarction without residual deficits; Z95.0 Presence of cardiac pacemaker; Z95.5 Presence of coronary angioplasty implant and graft; Z96.653 Presence of artificial knee joint, bilateral; F41.9 Anxiety disorder, unspecified; K21.9 Gastro-esophageal reflux disease without esophagitis; M19.90 Unspecified osteoarthritis, unspecified site
CPT/HCPCS: 36415; 70450; 71045; 72040; 73030; 80048; 80053; 80076; 80307; 81001; 82550; 82947; 83605; 83690; 83735; 83880; 84443; 84484; 85025; 85027; 85379; 85610; 85651; 85730; 87040; 87804; 93005; 93970; 94640; 96372; J1650; J1815; J7620; 97110; 97535; 99285-25; J7030

== ENCOUNTER 2019-09-09 17:24 | Inpatient (IN) | payer MEDICARE, OTHER ==
[~2019-09-09] VITALS: Ht 163.8 cm; Wt 78.3 kg
[2019-09-09] MEDS ORDERED: NITROGLYCERIN SUBLINGUAL 0.4 MG BOTTLE OF 25. SL PRN (17:30)
[2019-09-09] MEDS ORDERED: ALPRAZolam 0.25 MG TABLET PO PRN (17:30)
[2019-09-09 18:34] VITALS: BP 125/60
[2019-09-09] MEDS: ATORVASTATIN CALCIUM 10 MG TABLET. PO SCH (21:06)
[2019-09-09] MEDS: AMIODARONE HCL 200 MG TABLET PO SCH (21:07)
[2019-09-09] MEDS: SERTRALINE 25 MG TABLET. PO SCH (21:07)
[2019-09-09] MEDS: APIXABAN 2.5 MG TABLET PO SCH (21:07)
[2019-09-09] MEDS: SENNOSIDES 8.6 MG TABLET PO SCH (21:07)
[2019-09-09] MEDS: ACETAMINOPHEN 325 MG TABLET PO PRN (21:08)
[2019-09-09] MEDS: rOPINIRole 0.5 MG TABLET. PO SCH (21:08)
[2019-09-09] MEDS: traZODone 50 MG TABLET. PO SCH (21:08)
[2019-09-09] MEDS: INSULIN GLARGINE SYRINGE. SQ SCH (21:14)
[2019-09-09] MEDS: IPRATRPIUM/ALBUTEROL 0.5/2.5MG 3 ML NEBU. NEB SCH (21:20)
[2019-09-10] MEDS: IPRATRPIUM/ALBUTEROL 0.5/2.5MG 3 ML NEBU. NEB SCH ×4 (05:44→20:19)
[2019-09-10 05:51] VITALS: BP 144/57
[2019-09-10] MEDS: MAGNESIUM OXIDE 400 MG TABLET PO SCH (08:20)
[2019-09-10] MEDS: FUROSEMIDE 40 MG TABLET PO SCH (08:20)
[2019-09-10] MEDS: METOPROLOL TART IMMED RELEASE 25 MG TABLET PO SCH (08:22)
[2019-09-10] MEDS: LIDOCAINE (700MG/PATCH) PATCH. TP PRN (08:28)
[2019-09-10] MEDS: PANTOPRAZOLE 40 MG TABLET. PO SCH (08:28)
[2019-09-10] MEDS: GLIMEPIRIDE 2 MG TABLET PO SCH (08:29)
[2019-09-10] MEDS: APIXABAN 2.5 MG TABLET PO SCH ×2 (08:29→20:31)
[2019-09-10] MEDS: ASPIRIN 81 MG TAB.CHEW PO SCH (08:29)
[2019-09-10] MEDS: SENNOSIDES 8.6 MG TABLET PO SCH ×2 (08:29→20:30)
[2019-09-10] MEDS: AMIODARONE HCL 200 MG TABLET PO SCH ×2 (08:29→20:30)
[2019-09-10] MEDS ORDERED: NON FORMULARY ITEM (Dexlansoprazole (Dexilant) 1 CAP) PO SCH (09:00)
[2019-09-10] MEDS: ACETAMINOPHEN 325 MG TABLET PO PRN (11:21)
[2019-09-10 18:31] VITALS: BP 129/83
[2019-09-10] MEDS: traZODone 50 MG TABLET. PO SCH (20:29)
[2019-09-10] MEDS: rOPINIRole 0.5 MG TABLET. PO SCH (20:30)
[2019-09-10] MEDS: ATORVASTATIN CALCIUM 10 MG TABLET. PO SCH (20:30)
[2019-09-10] MEDS: SERTRALINE 25 MG TABLET. PO SCH (20:31)
[2019-09-10] MEDS: INSULIN GLARGINE SYRINGE. SQ SCH (20:36)
[2019-09-10] MEDS ORDERED: OSELTAMIVIR 30 MG CAPSULE PO SCH (21:00)
[2019-09-11] MEDS: IPRATRPIUM/ALBUTEROL 0.5/2.5MG 3 ML NEBU. NEB SCH ×4 (04:58→20:10)
[2019-09-11 06:19] VITALS: BP 132/88
[2019-09-11] MEDS: FUROSEMIDE 40 MG TABLET PO SCH (09:50)
[2019-09-11] MEDS: SENNOSIDES 8.6 MG TABLET PO SCH ×2 (09:50→20:51)
[2019-09-11] MEDS: PANTOPRAZOLE 40 MG TABLET. PO SCH (09:50)
[2019-09-11] MEDS: APIXABAN 2.5 MG TABLET PO SCH ×2 (09:50→20:52)
[2019-09-11] MEDS: AMIODARONE HCL 200 MG TABLET PO SCH ×2 (09:51→20:52)
[2019-09-11] MEDS: METOPROLOL TART IMMED RELEASE 25 MG TABLET PO SCH (09:51)
[2019-09-11] MEDS: GLIMEPIRIDE 2 MG TABLET PO SCH (09:52)
[2019-09-11] MEDS: ASPIRIN 81 MG TAB.CHEW PO SCH (09:52)
[2019-09-11] MEDS: MAGNESIUM OXIDE 400 MG TABLET PO SCH (09:52)
[2019-09-11] MEDS: ACETAMINOPHEN 325 MG TABLET PO PRN ×2 (10:05→21:12)
[2019-09-11] MEDS: LIDOCAINE (700MG/PATCH) PATCH. TP PRN (10:05)
[2019-09-11 18:14] VITALS: BP 141/60
[2019-09-11] MEDS: traZODone 50 MG TABLET. PO SCH (20:51)
[2019-09-11] MEDS: rOPINIRole 0.5 MG TABLET. PO SCH (20:51)
[2019-09-11] MEDS: ATORVASTATIN CALCIUM 10 MG TABLET. PO SCH (20:51)
[2019-09-11] MEDS: SERTRALINE 25 MG TABLET. PO SCH (20:51)
[2019-09-11] MEDS: INSULIN GLARGINE SYRINGE. SQ SCH (21:03)
[2019-09-12] MEDS: IPRATRPIUM/ALBUTEROL 0.5/2.5MG 3 ML NEBU. NEB SCH ×4 (05:07→20:38)
[2019-09-12 05:16] VITALS: BP 128/41
[2019-09-12] MEDS: PANTOPRAZOLE 40 MG TABLET. PO SCH (08:24)
[2019-09-12] MEDS: AMIODARONE HCL 200 MG TABLET PO SCH ×2 (08:24→20:46)
[2019-09-12] MEDS: MAGNESIUM OXIDE 400 MG TABLET PO SCH (08:24)
[2019-09-12] MEDS: MECLIZINE 12.5 MG TABLET. PO PRN (08:24)
[2019-09-12] MEDS: APIXABAN 2.5 MG TABLET PO SCH ×2 (08:25→20:43)
[2019-09-12] MEDS: GLIMEPIRIDE 2 MG TABLET PO SCH ×2 (08:25→08:59)
[2019-09-12] MEDS: FUROSEMIDE 40 MG TABLET PO SCH (08:25)
[2019-09-12] MEDS: METOPROLOL TART IMMED RELEASE 25 MG TABLET PO SCH (08:25)
[2019-09-12] MEDS: SENNOSIDES 8.6 MG TABLET PO SCH ×2 (08:26→20:43)
[2019-09-12] MEDS: ASPIRIN 81 MG TAB.CHEW PO SCH (08:26)
[2019-09-12] MEDS: LIDOCAINE (700MG/PATCH) PATCH. TP PRN (09:00)
[2019-09-12] MEDS: INSULIN GLARGINE SYRINGE. SQ SCH (20:30)
[2019-09-12] MEDS: ATORVASTATIN CALCIUM 10 MG TABLET. PO SCH (20:43)
[2019-09-12] MEDS: traZODone 50 MG TABLET. PO SCH (20:43)
[2019-09-12] MEDS: rOPINIRole 0.5 MG TABLET. PO SCH (20:43)
[2019-09-12] MEDS: SERTRALINE 25 MG TABLET. PO SCH (20:43)
[2019-09-13] MEDS: IPRATRPIUM/ALBUTEROL 0.5/2.5MG 3 ML NEBU. NEB SCH ×4 (04:51→20:51)
[2019-09-13 05:34] VITALS: BP 117/65
[2019-09-13] MEDS: METOPROLOL TART IMMED RELEASE 25 MG TABLET PO SCH (08:51)
[2019-09-13] MEDS: APIXABAN 2.5 MG TABLET PO SCH ×2 (08:53→21:13)
[2019-09-13] MEDS: MAGNESIUM OXIDE 400 MG TABLET PO SCH (08:53)
[2019-09-13] MEDS: ASPIRIN 81 MG TAB.CHEW PO SCH (08:53)
[2019-09-13] MEDS: SENNOSIDES 8.6 MG TABLET PO SCH ×2 (08:53→21:13)
[2019-09-13] MEDS: FUROSEMIDE 40 MG TABLET PO SCH (08:53)
[2019-09-13] MEDS: GLIMEPIRIDE 2 MG TABLET PO SCH (08:54)
[2019-09-13] MEDS: AMIODARONE HCL 200 MG TABLET PO SCH ×2 (08:54→21:13)
[2019-09-13] MEDS: PANTOPRAZOLE 40 MG TABLET. PO SCH (08:54)
[2019-09-13] MEDS: guaiFENesin DM 600/30MG 1 TAB TAB.ER.12H PO SCH ×2 (09:21→21:14)
[2019-09-13] MEDS: LIDOCAINE (700MG/PATCH) PATCH. TP PRN (09:22)
[2019-09-13 18:13] VITALS: BP 124/74
[2019-09-13] MEDS: INSULIN GLARGINE SYRINGE. SQ SCH (21:00)
[2019-09-13] MEDS: SERTRALINE 25 MG TABLET. PO SCH (21:13)
[2019-09-13] MEDS: traZODone 50 MG TABLET. PO SCH (21:13)
[2019-09-13] MEDS: ACETAMINOPHEN 325 MG TABLET PO PRN (21:13)
[2019-09-13] MEDS: ATORVASTATIN CALCIUM 10 MG TABLET. PO SCH (21:14)
[2019-09-13] MEDS: rOPINIRole 0.5 MG TABLET. PO SCH (21:14)
[2019-09-14] MEDS: IPRATRPIUM/ALBUTEROL 0.5/2.5MG 3 ML NEBU. NEB SCH ×4 (04:34→20:55)
[2019-09-14] MEDS: ACETAMINOPHEN 325 MG TABLET PO PRN ×2 (05:25→20:43)
[2019-09-14 06:13] VITALS: BP 121/66
[2019-09-14] MEDS: SENNOSIDES 8.6 MG TABLET PO SCH ×2 (09:02→20:44)
[2019-09-14] MEDS: MAGNESIUM OXIDE 400 MG TABLET PO SCH (09:02)
[2019-09-14] MEDS: PANTOPRAZOLE 40 MG TABLET. PO SCH (09:02)
[2019-09-14] MEDS: guaiFENesin DM 600/30MG 1 TAB TAB.ER.12H PO SCH ×2 (09:02→20:43)
[2019-09-14] MEDS: APIXABAN 2.5 MG TABLET PO SCH ×2 (09:03→20:43)
[2019-09-14] MEDS: GLIMEPIRIDE 2 MG TABLET PO SCH (09:03)
[2019-09-14] MEDS: METOPROLOL TART IMMED RELEASE 25 MG TABLET PO SCH (09:03)
[2019-09-14] MEDS: ASPIRIN 81 MG TAB.CHEW PO SCH (09:04)
[2019-09-14] MEDS: FUROSEMIDE 40 MG TABLET PO SCH (09:04)
[2019-09-14] MEDS: AMIODARONE HCL 200 MG TABLET PO SCH ×2 (09:04→20:44)
[2019-09-14] MEDS: LIDOCAINE (700MG/PATCH) PATCH. TP PRN (12:36)
[2019-09-14 18:31] VITALS: BP 127/71
[2019-09-14] MEDS: ATORVASTATIN CALCIUM 10 MG TABLET. PO SCH (20:43)
[2019-09-14] MEDS: rOPINIRole 0.5 MG TABLET. PO SCH (20:43)
[2019-09-14] MEDS: traZODone 50 MG TABLET. PO SCH (20:43)
[2019-09-14] MEDS: SERTRALINE 25 MG TABLET. PO SCH (20:43)
[2019-09-14] MEDS: INSULIN GLARGINE SYRINGE. SQ SCH (20:45)
[2019-09-15 05:33] VITALS: BP 153/61
[2019-09-15] MEDS: IPRATRPIUM/ALBUTEROL 0.5/2.5MG 3 ML NEBU. NEB SCH ×4 (05:56→21:52)
[2019-09-15 06:55] LABS: HEMATOCRIT 29.5 % (36.0-47.0); HEMOGLOBIN 9.5 g/dL (12.0-15.5); RED BLOOD COUNT 3.34 x10^6/uL (3.50-5.40); RED CELL DISTRIBUTION WIDTH 15.5 % (11.5-14.5); WHITE BLOOD COUNT 6.1 x10^3/uL (4.0-11.0)
[2019-09-15 07:22] LABS: ALBUMIN 3.3 g/dL (3.4-5.0); C REACTIVE PROTEIN 10.8 mg/L (0-3.3); CALCIUM 9.1 mg/dL (8.5-10.1); CREATININE 2.2 mg/dL (0.6-1.0); GFR 25.4; POTASSIUM 5.1 mmol/L (3.5-5.1); TOTAL BILIRUBIN 0.2 mg/dL (0.2-1.0); TOTAL PROTEIN 6.7 g/dL (6.4-8.2)
[2019-09-15] MEDS: guaiFENesin DM 600/30MG 1 TAB TAB.ER.12H PO SCH ×2 (09:00→21:00)
[2019-09-15] MEDS: SENNOSIDES 8.6 MG TABLET PO SCH ×2 (09:04→21:51)
[2019-09-15] MEDS: GLIMEPIRIDE 2 MG TABLET PO SCH (09:04)
[2019-09-15] MEDS: MAGNESIUM OXIDE 400 MG TABLET PO SCH (09:05)
[2019-09-15] MEDS: AMIODARONE HCL 200 MG TABLET PO SCH ×2 (09:05→21:52)
[2019-09-15] MEDS: METOPROLOL TART IMMED RELEASE 25 MG TABLET PO SCH (09:05)
[2019-09-15] MEDS: FUROSEMIDE 40 MG TABLET PO SCH (09:05)
[2019-09-15] MEDS: APIXABAN 2.5 MG TABLET PO SCH ×2 (09:06→21:51)
[2019-09-15] MEDS: PANTOPRAZOLE 40 MG TABLET. PO SCH (09:06)
[2019-09-15] MEDS: ASPIRIN 81 MG TAB.CHEW PO SCH (09:06)
[2019-09-15] MEDS: ACETAMINOPHEN 325 MG TABLET PO PRN ×2 (09:15→22:04)
[2019-09-15 11:10] VITALS: BP 113/67
[2019-09-15 11:11] VITALS: BP_SYST 120; BP_DIAS 67; BP_DIAS 68
[2019-09-15 17:49] VITALS: BP 163/76
[2019-09-15] MEDS: INSULIN GLARGINE SYRINGE. SQ SCH (21:00)
[2019-09-15] MEDS: traZODone 50 MG TABLET. PO SCH (21:51)
[2019-09-15] MEDS: ATORVASTATIN CALCIUM 10 MG TABLET. PO SCH (21:51)
[2019-09-15] MEDS: SERTRALINE 25 MG TABLET. PO SCH (21:51)
[2019-09-15] MEDS: rOPINIRole 0.5 MG TABLET. PO SCH (21:51)
[2019-09-16] MEDS: IPRATRPIUM/ALBUTEROL 0.5/2.5MG 3 ML NEBU. NEB SCH ×4 (05:52→20:37)
[2019-09-16 06:11] VITALS: BP 135/72
[2019-09-16] MEDS: METOPROLOL TART IMMED RELEASE 25 MG TABLET PO SCH (08:20)
[2019-09-16] MEDS: FUROSEMIDE 40 MG TABLET PO SCH (08:20)
[2019-09-16] MEDS: MAGNESIUM OXIDE 400 MG TABLET PO SCH (08:20)
[2019-09-16] MEDS: APIXABAN 2.5 MG TABLET PO SCH ×2 (08:21→21:26)
[2019-09-16] MEDS: SENNOSIDES 8.6 MG TABLET PO SCH ×2 (08:21→21:24)
[2019-09-16] MEDS: AMIODARONE HCL 200 MG TABLET PO SCH ×2 (08:21→21:25)
[2019-09-16] MEDS: PANTOPRAZOLE 40 MG TABLET. PO SCH (08:21)
[2019-09-16] MEDS: GLIMEPIRIDE 2 MG TABLET PO SCH (08:21)
[2019-09-16] MEDS: ASPIRIN 81 MG TAB.CHEW PO SCH (08:21)
[2019-09-16] MEDS: guaiFENesin DM 600/30MG 1 TAB TAB.ER.12H PO SCH ×2 (08:22→21:25)
[2019-09-16] MEDS: LIDOCAINE (700MG/PATCH) PATCH. TP PRN (08:29)
[2019-09-16] MEDS: DRONABINOL 2.5 MG CAPSULE PO SCH (16:33)
[2019-09-16] MEDS: rOPINIRole 0.5 MG TABLET. PO SCH (21:24)
[2019-09-16] MEDS: traZODone 50 MG TABLET. PO SCH (21:26)
[2019-09-16] MEDS: SERTRALINE 25 MG TABLET. PO SCH (21:26)
[2019-09-16] MEDS: ATORVASTATIN CALCIUM 10 MG TABLET. PO SCH (21:26)
[2019-09-16] MEDS: INSULIN GLARGINE SYRINGE. SQ SCH (21:41)
[2019-09-16] MEDS: ACETAMINOPHEN 325 MG TABLET PO PRN (21:41)
[2019-09-17] MEDS: IPRATRPIUM/ALBUTEROL 0.5/2.5MG 3 ML NEBU. NEB SCH ×4 (04:09→22:25)
[2019-09-17 06:11] VITALS: BP 150/82
[2019-09-17] MEDS: ACETAMINOPHEN 325 MG TABLET PO PRN ×2 (06:32→21:23)
[2019-09-17 07:38] VITALS: BP 123/69
[2019-09-17] MEDS: guaiFENesin DM 600/30MG 1 TAB TAB.ER.12H PO SCH ×2 (09:24→21:05)
[2019-09-17] MEDS: APIXABAN 2.5 MG TABLET PO SCH ×2 (09:24→21:04)
[2019-09-17] MEDS: AMIODARONE HCL 200 MG TABLET PO SCH ×2 (09:24→21:03)
[2019-09-17] MEDS: PANTOPRAZOLE 40 MG TABLET. PO SCH (09:24)
[2019-09-17] MEDS: predniSONE 20 MG TABLET PO SCH (09:24)
[2019-09-17] MEDS: ASPIRIN 81 MG TAB.CHEW PO SCH (09:24)
[2019-09-17] MEDS: GLIMEPIRIDE 2 MG TABLET PO SCH (09:24)
[2019-09-17] MEDS: MAGNESIUM OXIDE 400 MG TABLET PO SCH (09:24)
[2019-09-17] MEDS: SENNOSIDES 8.6 MG TABLET PO SCH ×2 (09:24→21:03)
[2019-09-17] MEDS: METOPROLOL TART IMMED RELEASE 25 MG TABLET PO SCH (09:25)
[2019-09-17] MEDS: FUROSEMIDE 40 MG TABLET PO SCH (09:25)
[2019-09-17] MEDS: DRONABINOL 2.5 MG CAPSULE PO SCH ×2 (12:44→17:05)
[2019-09-17] MEDS: MECLIZINE 12.5 MG TABLET. PO PRN (15:20)
[2019-09-17] MEDS: LIDOCAINE (700MG/PATCH) PATCH. TP PRN (15:20)
[2019-09-17 17:51] VITALS: BP 138/78
[2019-09-17] MEDS: rOPINIRole 0.5 MG TABLET. PO SCH (21:03)
[2019-09-17] MEDS: traZODone 50 MG TABLET. PO SCH (21:04)
[2019-09-17] MEDS: ATORVASTATIN CALCIUM 10 MG TABLET. PO SCH (21:04)
[2019-09-17] MEDS: ALPRAZolam 0.5 MG TABLET PO PRN ×2 (21:23→21:27)
[2019-09-17] MEDS: SERTRALINE 25 MG TABLET. PO SCH (21:23)
[2019-09-17] MEDS: INSULIN GLARGINE SYRINGE. SQ SCH (21:24)
[2019-09-18 05:23] VITALS: BP 124/76
[2019-09-18] MEDS: IPRATRPIUM/ALBUTEROL 0.5/2.5MG 3 ML NEBU. NEB SCH ×4 (06:16→20:35)
[2019-09-18] MEDS: guaiFENesin DM 600/30MG 1 TAB TAB.ER.12H PO SCH ×2 (09:00→20:58)
[2019-09-18] MEDS: MAGNESIUM OXIDE 400 MG TABLET PO SCH (09:36)
[2019-09-18] MEDS: METOPROLOL TART IMMED RELEASE 25 MG TABLET PO SCH (09:36)
[2019-09-18] MEDS: AMIODARONE HCL 200 MG TABLET PO SCH ×2 (09:36→20:59)
[2019-09-18] MEDS: SENNOSIDES 8.6 MG TABLET PO SCH ×2 (09:37→20:59)
[2019-09-18] MEDS: APIXABAN 2.5 MG TABLET PO SCH ×2 (09:37→20:58)
[2019-09-18] MEDS: ASPIRIN 81 MG TAB.CHEW PO SCH (09:38)
[2019-09-18] MEDS: GLIMEPIRIDE 2 MG TABLET PO SCH (09:38)
[2019-09-18] MEDS: FUROSEMIDE 40 MG TABLET PO SCH (09:38)
[2019-09-18] MEDS: PANTOPRAZOLE 40 MG TABLET. PO SCH (09:38)
[2019-09-18] MEDS: ACETAMINOPHEN 325 MG TABLET PO PRN (09:41)
[2019-09-18] MEDS: predniSONE 20 MG TABLET PO SCH (09:41)
[2019-09-18] MEDS ORDERED: SALIVA STIMULANT AGENT 44ML SPRAY BOTTLE. PO PRN (10:30)
[2019-09-18] MEDS: LIDOCAINE (700MG/PATCH) PATCH. TP SCH (11:00)
[2019-09-18] MEDS: ACETAMINOPHEN 325 MG TABLET PO SCH ×2 (11:00→20:59)
[2019-09-18] MEDS: DRONABINOL 2.5 MG CAPSULE PO SCH ×2 (12:44→16:23)
[2019-09-18 18:44] VITALS: BP 134/71
[2019-09-18] MEDS: INSULIN GLARGINE SYRINGE. SQ SCH (20:56)
[2019-09-18] MEDS: rOPINIRole 0.5 MG TABLET. PO SCH (20:58)
[2019-09-18] MEDS: traZODone 50 MG TABLET. PO SCH (20:58)
[2019-09-18] MEDS: SERTRALINE 25 MG TABLET. PO SCH (20:59)
[2019-09-18] MEDS: ATORVASTATIN CALCIUM 10 MG TABLET. PO SCH (20:59)
[2019-09-19] MEDS: IPRATRPIUM/ALBUTEROL 0.5/2.5MG 3 ML NEBU. NEB SCH ×4 (04:19→20:00)
[2019-09-19 05:22] VITALS: BP 138/68
[2019-09-19] MEDS: LIDOCAINE (700MG/PATCH) PATCH. TP SCH (07:39)
[2019-09-19] MEDS: predniSONE 20 MG TABLET PO SCH (07:40)
[2019-09-19] MEDS: ACETAMINOPHEN 325 MG TABLET PO SCH ×2 (07:40→20:53)
[2019-09-19] MEDS: METOPROLOL TART IMMED RELEASE 25 MG TABLET PO SCH (07:40)
[2019-09-19] MEDS: AMIODARONE HCL 200 MG TABLET PO SCH ×2 (07:40→20:53)
[2019-09-19] MEDS: MAGNESIUM OXIDE 400 MG TABLET PO SCH (07:41)
[2019-09-19] MEDS: ASPIRIN 81 MG TAB.CHEW PO SCH (07:41)
[2019-09-19] MEDS: PANTOPRAZOLE 40 MG TABLET. PO SCH (07:41)
[2019-09-19] MEDS: SENNOSIDES 8.6 MG TABLET PO SCH ×2 (07:41→21:00)
[2019-09-19] MEDS: FUROSEMIDE 40 MG TABLET PO SCH (07:41)
[2019-09-19] MEDS: GLIMEPIRIDE 2 MG TABLET PO SCH (07:41)
[2019-09-19] MEDS: guaiFENesin DM 600/30MG 1 TAB TAB.ER.12H PO SCH ×2 (07:44→20:54)
[2019-09-19] MEDS: DRONABINOL 2.5 MG CAPSULE PO SCH ×2 (10:48→16:00)
[2019-09-19] MEDS: APIXABAN 2.5 MG TABLET PO SCH ×2 (10:48→20:54)
[2019-09-19 16:42] VITALS: BP 170/80
[2019-09-19] MEDS ORDERED: DEXTROSE 50% 25 GM / 50ML DISP.SYRIN. IV PRN (17:00)
[2019-09-19] MEDS ORDERED: cloNIDine HCL 0.1 MG TABLET PO PRN (17:00)
[2019-09-19] MEDS: amLODIPine BESYLATE 5 MG TABLET PO SCH (17:02)
[2019-09-19] MEDS: INSULIN LISPRO 300 UNITS/3 ML VIAL. SQ SCH (17:19)
[2019-09-19 17:59] VITALS: BP 149/70
[2019-09-19 19:18] VITALS: BP 155/72
[2019-09-19] MEDS ORDERED: INSULIN LISPRO 300 UNITS/3 ML VIAL. SQ SCH ×2 (19:30→21:15)
[2019-09-19] MEDS: rOPINIRole 0.5 MG TABLET. PO SCH (20:53)
[2019-09-19] MEDS: SERTRALINE 25 MG TABLET. PO SCH (20:53)
[2019-09-19] MEDS: ATORVASTATIN CALCIUM 10 MG TABLET. PO SCH (20:53)
[2019-09-19] MEDS: traZODone 50 MG TABLET. PO SCH (20:54)
[2019-09-19] MEDS: INSULIN GLARGINE SYRINGE. SQ SCH (21:11)
[2019-09-19] MEDS ORDERED: INSULIN LISPRO 300 UNITS/3 ML VIAL. SQ ONE (21:30)
[2019-09-20] MEDS: IPRATRPIUM/ALBUTEROL 0.5/2.5MG 3 ML NEBU. NEB SCH ×4 (05:24→21:41)
[2019-09-20 05:56] VITALS: BP 130/61
[2019-09-20] MEDS: INSULIN LISPRO 300 UNITS/3 ML VIAL. SQ SCH ×3 (08:00→17:39)
[2019-09-20] MEDS: MAGNESIUM OXIDE 400 MG TABLET PO SCH (08:29)
[2019-09-20] MEDS: ACETAMINOPHEN 325 MG TABLET PO SCH ×2 (08:29→20:16)
[2019-09-20] MEDS: APIXABAN 2.5 MG TABLET PO SCH ×2 (08:29→20:16)
[2019-09-20] MEDS: LIDOCAINE (700MG/PATCH) PATCH. TP SCH (08:29)
[2019-09-20] MEDS: METOPROLOL TART IMMED RELEASE 25 MG TABLET PO SCH (08:30)
[2019-09-20] MEDS: GLIMEPIRIDE 2 MG TABLET PO SCH (08:30)
[2019-09-20] MEDS: amLODIPine BESYLATE 5 MG TABLET PO SCH (08:30)
[2019-09-20] MEDS: AMIODARONE HCL 200 MG TABLET PO SCH ×2 (08:30→20:15)
[2019-09-20] MEDS: guaiFENesin DM 600/30MG 1 TAB TAB.ER.12H PO SCH ×2 (08:30→20:16)
[2019-09-20] MEDS: ASPIRIN 81 MG TAB.CHEW PO SCH (08:30)
[2019-09-20] MEDS: PANTOPRAZOLE 40 MG TABLET. PO SCH (08:31)
[2019-09-20] MEDS: FUROSEMIDE 40 MG TABLET PO SCH (08:31)
[2019-09-20] MEDS: DRONABINOL 2.5 MG CAPSULE PO SCH ×2 (08:31→17:35)
[2019-09-20] MEDS: predniSONE 10 MG TABLET PO SCH (08:31)
[2019-09-20] MEDS: SENNOSIDES 8.6 MG TABLET PO SCH ×2 (08:31→20:22)
--- NOTE | 2019-09-20 16:40 | DISCH ---
HOME HEALTH DISCHARGE/MEDS DISCHARGE INFORMATION: Discharge Date: Sep 21, 2019 Final Diagnosis: Influenza A Altered mental status A/C Renal failure Condition on Discharge: Stable CODE STATUS: Code Status: Full HOME HEALTH: Face to Face: I certify this patient is under my care and that I, or a nurse practitioner or physician's commercial real estate assistant working with me, had a face to face encounter that meets the physician face to face encounter requirements with this patient on 09/21/19 Medical Condition(s): Other Group Home For: Assess & Educate Safety Physical Therapy For: Evalulation/Treatment Occupational Therapy For: Evaluation/Treatment POST DISCHARGE ORDERS: Activity Instructions for Disc: Resume previous activity DIET AFTER DISCHARGE: ADA CERTIFICATION STATEMENT: Certification Statement: Based on the above finding, I certify that this patient is confined to the home and needs intermittent prison care, physical therapy and/or speech therapy, or continues to need occupational therapy.~ This patient is under my care, and I have initiated the establishment of the plan of care.~ This patient will be followed by myself or a community physician who will periodically review the plan of care. DISCHARGE MEDICATIONS: Home Meds Reported Medications Ergocalciferol (Vitamin D2) (VITAMIN D2) 50,000 Unit Capsule, 1 TAB PO WEEKLY for SUPPLEMENT NOT GIVEN IN THE HOSPITAL RESTART ON YOUR REGULAR DAY 01/20/19 Glimepiride (GLIMEPIRIDE) 4 Mg Tablet, 1 TAB PO DAILY for DIABETES LAST DOSE GIVEN: DATE: TODAY TIME: AM NEXT DOSE DUE: DATE: TOMORROW TIME: AM 01/20/19 Sertraline Hcl (ZOLOFT) 25 Mg Tablet, 1 TAB PO HS for DEPRESSION LAST DOSE GIVEN: DATE: YESTERDAY TIME: AT BEDTIME NEXT DOSE DUE: DATE: TODAY TIME: AT BEDTIME 11/16/18 Trazodone Hcl (TRAZODONE HCL) 50 Mg Tablet, 50 MG PO HS for INSOMNIA LAST DOSE GIVEN: DATE: YESTERDAY TIME: AT BEDTIME NEXT DOSE DUE: DATE: TODAY TIME: AT BEDTIME 11/12/18 Furosemide (FUROSEMIDE) 40 Mg Tablet, 40 MG PO DAILY for FLUID RETENTION LAST DOSE GIVEN: DATE: TODAY TIME: AM NEXT DOSE DUE: DATE: TOMORROW TIME: AM 11/12/18 Sennosides (SENOKOT) 8.6 Mg Tablet, 8.6 MG PO BID for CONSTIPATION LAST DOSE GIVEN: DATE: TODAY TIME: AM NEXT DOSE DUE: DATE: TODAY TIME: PM 07/06/18 Ipratropium/Albuterol Sulfate (DUONEB 0.5-3(2.5) MG/3 ML) 3 Ml Ampul.neb, 3 ML NEB QID for SHORTNESS OF BREATH LAST DOSE GIVEN: DATE: TIME: AM NEXT DOSE DUE: DATE: TIME: EARLY AFTERNOON 07/06/18 Lidocaine (Lidocaine PATCH ) 1 Each Adh..patch, 1 EACH TP PRN DAILY PRN for PAIN NOT GIVEN TODAY NEXT DOSE DUE: DATE: TIME: IF AND WHEN NEEDED 07/06/18 Insulin Lispro (Humalog Kwikpen) Unknown Strength Insuln.pen, SQ TIDAC for HIGH BLOOD SUGAR-DIABETES LAST DOSE GIVEN: DATE: TIME: WITH LUNCH NEXT DOSE DUE: DATE: TIME: WITH DINNER 07/06/18 Meclizine Hcl (MECLIZINE HCL) 25 Mg Tablet, 1 TAB PO PRN TID PRN for DIZZINESS NOT GIVEN TODAY NEXT DOSE DUE: DATE: TODAY TIME: IF AND WHEN NEEDED 07/06/18 Insulin Glargine,Hum.rec.anlog (Toujeo Solostar) 300 Unit/1 Ml Insuln.pen, 20 UNIT SQ HS for HIGH BLOOD SUGAR-DIABETES LAST DOSE GIVEN: DATE: YESTERDAY TIME: AT BEDTIME NEXT DOSE DUE: DATE: TIME: AT BEDTIME 07/06/18 Dexlansoprazole (DEXILANT) 60 Mg Cap., 1 CAP PO DAILY for HEARTBURN LAST DOSE GIVEN: DATE: TIME: AM NEXT DOSE DUE: DATE: TOMORROW TIME: AM 07/06/18 Atorvastatin Calcium (ATORVASTATIN CALCIUM) 10 Mg Tablet, 1 TAB PO HS for HIGH CHOLESTEROL LAST DOSE GIVEN: DATE: YESTERDAY TIME: AT BEDTIME NEXT DOSE DUE: DATE: TODAY TIME: AT BEDTIME 07/06/18 Apixaban (ELIQUIS) 2.5 Mg Tablet, 2.5 MG PO BID for PREVENT BLOOD CLOTS LAST DOSE GIVEN: DATE: TIME: AM NEXT DOSE DUE: DATE: TODAY TIME: PM 07/06/18 Amiodarone Hcl (AMIODARONE HCL) 200 Mg Tablet, 1 TAB PO BID for IRREGULAR HEART RATE LAST DOSE GIVEN: DATE: TODAY TIME: AM NEXT DOSE DUE: DATE: TODAY TIME: PM 07/06/18 Metoprolol Tartrate (METOPROLOL TARTRATE) 25 Mg Tablet, 0.5 TAB PO DAILY for HIGH BLOOD PRESSURE LAST DOSE GIVEN: DATE:TODAY TIME:MORNING NEXT DOSE DUE: DATE:TOMORROW TIME:MORNING 04/23/18 Ropinirole Hcl (REQUIP) 0.5 Mg Tablet, 0.25 MG PO QHS for RESTLESS LEGS LAST DOSE GIVEN: DATE: YESTERDAY TIME: AT BEDTIME NEXT DOSE DUE: DATE: TODAY TIME: AT BEDTIME 03/05/18 Pantoprazole Sodium (PROTONIX) 40 Mg Tablet.dr, 1 TAB PO DAILY for HEARTBURN LAST DOSE GIVEN: DATE: TODAY TIME: BEFORE BREAKFAST NEXT DOSE DUE: DATE: TOMORROW TIME: BEFORE BREAKFAST 03/05/18 Aspirin (ASPIRIN) 81 Mg Tab.chew, 81 MG PO DAILY for HEART HEALTH LAST DOSE GIVEN: DATE: TODAY TIME: AM NEXT DOSE DUE: DATE: TOMORROW TIME: AM 03/05/18 Acetaminophen (TYLENOL) 325 Mg Tablet, 2 TAB PO PRN Q6HRS PRN for PAIN NOT GIVEN TODAY NEXT DOSE DUE: DATE: TODAY TIME: IF AND WHEN NEEDED 03/27/17 Magnesium Oxide (MAGNESIUM OXIDE) 400 Mg Tablet, 800 MG PO DAILY for SUPPLEMENT LAST DOSE GIVEN: DATE: TODAY TIME: AM NEXT DOSE DUE: DATE: TOMORROW TIME: AM 03/27/17 Nitroglycerin (NITROGLYCERIN SubLingual) 0.4 Mg Tab.subl, 0.4 MG SL PRN Q5MIN PRN for CHEST PAIN NOT GIVEN TODAY NEXT DOSE DUE: DATE: TODAY TIME: IF AND WHEN NEEDED 12/19/16 Alprazolam (XANAX) 0.25 Mg Tablet, 0.5 MG PO PRN TID PRN for ANXIETY / AGITATION NOT GIVEN TODAY NEXT DOSE DUE: DATE: TODAY TIME: IF AND WHEN NEEDED 12/17/16 JAMES MULTANI MD Sep 20, 2019 16:40
[2019-09-20 18:28] VITALS: BP 150/72
[2019-09-20] MEDS: SERTRALINE 25 MG TABLET. PO SCH (20:15)
[2019-09-20] MEDS: rOPINIRole 0.5 MG TABLET. PO SCH (20:15)
[2019-09-20] MEDS: traZODone 50 MG TABLET. PO SCH (20:16)
[2019-09-20] MEDS: ATORVASTATIN CALCIUM 10 MG TABLET. PO SCH (20:16)
[2019-09-20] MEDS: INSULIN GLARGINE SYRINGE. SQ SCH (20:20)
[2019-09-20] MEDS ORDERED: INSULIN GLARGINE SYRINGE. SQ ONE (21:00)
[2019-09-21] MEDS: IPRATRPIUM/ALBUTEROL 0.5/2.5MG 3 ML NEBU. NEB SCH (05:34)
[2019-09-21 06:04] VITALS: BP 144/81
[2019-09-21] MEDS: INSULIN LISPRO 300 UNITS/3 ML VIAL. SQ SCH (08:00)
[2019-09-21] MEDS: SENNOSIDES 8.6 MG TABLET PO SCH (08:16)
[2019-09-21] MEDS: LIDOCAINE (700MG/PATCH) PATCH. TP SCH (08:16)
[2019-09-21] MEDS: predniSONE 10 MG TABLET PO SCH (08:16)
[2019-09-21] MEDS: GLIMEPIRIDE 2 MG TABLET PO SCH (08:16)
[2019-09-21] MEDS: ASPIRIN 81 MG TAB.CHEW PO SCH (08:16)
[2019-09-21] MEDS: DRONABINOL 2.5 MG CAPSULE PO SCH (08:16)
[2019-09-21] MEDS: ACETAMINOPHEN 325 MG TABLET PO SCH (08:17)
[2019-09-21] MEDS: MAGNESIUM OXIDE 400 MG TABLET PO SCH (08:17)
[2019-09-21] MEDS: AMIODARONE HCL 200 MG TABLET PO SCH (08:17)
[2019-09-21 08:18] VITALS: BP 144/81
[2019-09-21] MEDS: APIXABAN 2.5 MG TABLET PO SCH (08:18)
[2019-09-21] MEDS: METOPROLOL TART IMMED RELEASE 25 MG TABLET PO SCH (08:18)
[2019-09-21] MEDS: amLODIPine BESYLATE 5 MG TABLET PO SCH (08:18)
[2019-09-21] MEDS: PANTOPRAZOLE 40 MG TABLET. PO SCH (08:18)
[2019-09-21] MEDS: FUROSEMIDE 40 MG TABLET PO SCH (08:19)
[2019-09-21] MEDS: guaiFENesin DM 600/30MG 1 TAB TAB.ER.12H PO SCH (08:20)
== END 2019-09-21 10:00 | disposition home health service (06) | DRG 948 ==
LOC: LND 17:24
PROVIDERS: ADMIT Internal Medicine; ATTEND Internal Medicine
DX: R53.1 Weakness (principal); I50.32 Chronic diastolic (congestive) heart failure; I13.0 Hypertensive heart and chronic kidney disease with heart failure and stage 1 through stage 4 chronic kidney disease, or unspecified chronic kidney disease; I25.10 Atherosclerotic heart disease of native coronary artery without angina pectoris; E78.00 Pure hypercholesterolemia, unspecified; I48.0 Paroxysmal atrial fibrillation; I27.20 Pulmonary hypertension, unspecified; D64.9 Anemia, unspecified; M15.9 Polyosteoarthritis, unspecified; E11.9 Type 2 diabetes mellitus without complications; E11.51 Type 2 diabetes mellitus with diabetic peripheral angiopathy without gangrene; K21.9 Gastro-esophageal reflux disease without esophagitis; I49.5 Sick sinus syndrome; N18.9 Chronic kidney disease, unspecified; Z96.653 Presence of artificial knee joint, bilateral; E11.22 Type 2 diabetes mellitus with diabetic chronic kidney disease; Z88.1 Allergy status to other antibiotic agents; Z88.0 Allergy status to penicillin; Z88.7 Allergy status to serum and vaccine; Z88.8 Allergy status to other drugs, medicaments and biological substances; Z86.718 Personal history of other venous thrombosis and embolism; Z86.73 Personal history of transient ischemic attack (TIA), and cerebral infarction without residual deficits; Z95.0 Presence of cardiac pacemaker
CPT/HCPCS: 36415; 80053; 82947; 85027; 85651; 86140; 94640; J1815; J7512; J7620; J8597; Q0167; 97110; 97112; 97116; 97530; 97535

== ENCOUNTER 2019-10-21 20:38 | Inpatient (IN) | payer MEDICARE, OTHER ==
[~2019-10-21] VITALS: Ht 163.8 cm; Wt 81.9 kg
[2019-10-21 21:19] LABS: BASO % 0 % (0-3); EOS # 0.1 x10^3/uL (0.0-0.7); EOS % 1 % (0-3); HEMATOCRIT 30.8 % (36.0-47.0); LYMPH # 1.6 x10^3/uL (1.0-4.8); LYMPH % 22 % (24-48); MEAN CORPUSCULAR HEMOGLOBIN 29 pg (25-35); MEAN CORPUSCULAR HGB CONC 32 g/dL (31-37); MEAN CORPUSCULAR VOLUME 90 fL (79-100); MONO # 0.4 x10^3/uL (0.0-1.1); MONO % 6 % (0-9); NEUT # 4.9 x10^3uL (1.8-7.7); NEUT % 70 % (31-73); PLATELET COUNT 244 x10^3/uL (140-400); RED BLOOD COUNT 3.42 x10^6/uL (3.50-5.40); RED CELL DISTRIBUTION WIDTH 16.1 % (11.5-14.5)
[2019-10-21 21:29] LABS: CALCIUM 9.7 mg/dL (8.5-10.1); CREATININE 2.6 mg/dL (0.6-1.0); POTASSIUM 3.8 mmol/L (3.5-5.1)
--- NOTE | 2019-10-21 21:33 | RAD ---
Exam: Chest one view INDICATION: Cough TECHNIQUE: Frontal view of the chest Comparisons: 09/05/2019 FINDINGS: Pacer with leads terminating the right atrium and ventricle. The cardiomediastinal silhouette and pulmonary vessels are within normal limits. The lung and pleural spaces are clear. IMPRESSION: No acute pulmonary process. Electronically signed by: Juan M Garrido MD (10/21/2019 9:29 PM) [id number]
[2019-10-21 21:35] LABS: ALBUMIN 3.4 g/dL (3.4-5.0); ALBUMIN/GLOBULIN RATIO 1.1 (1.0-1.7); TOTAL BILIRUBIN 0.2 mg/dL (0.2-1.0); TOTAL PROTEIN 6.4 g/dL (6.4-8.2)
[2019-10-21 21:39] LABS: INFLUENZA A PATIENT NEGATIVE (NEGATIVE); INFLUENZA B PATIENT NEGATIVE (NEGATIVE)
--- NOTE | 2019-10-21 23:43 | PHYS DOC ---
Past History Past Medical History: Anxiety, Arthritis, CHF, Dementia, Diabetes, Heart Disease, Hypertension, UT, Renal Disease, Stroke, TIA, UTI Past Surgical History: Pacemaker, Other Additional Past Surgical Histo: cardiac stents Smoking: Non-smoker Alcohol Use: None Drug Use: None Adult General Chief Complaint Chief Complaint: COUGH HPI HPI 89-year-old female past medical history hypertension hyperlipidemia diabetes coronary artery disease presents with a chief complaint of chest pain and cough. Patient complains of substernal chest discomfort associated with nausea and vomiting. Patient states this discomfort started yesterday. Patient states yesterday and today chest pain was associated with nausea and vomiting. No associated shortness of breath. No known fevers. Review of Systems Review of Systems Constitutional: Denies fever or chills [] Eyes: Denies change in visual acuity, redness, or eye pain [] HENT: Denies nasal congestion or sore throat [] Respiratory: positive cough Cardiovascular: positive chest pain GI: Denies abdominal pain, nausea, vomiting, bloody stools or diarrhea [] : Denies dysuria or hematuria [] Musculoskeletal: Denies back pain or joint pain [] Integument: Denies rash or skin lesions [] Neurologic: Denies headache, focal weakness or sensory changes [] Endocrine: Denies polyuria or polydipsia [] All other systems were reviewed and found to be within normal limits, except as documented in this note. Allergies Allergies Allergies Coded Allergies Type Severity Reaction Last Updated Verified Influenza Virus Vaccines Allergy Intermediate GENERALIZED BODY/JOINT ACHES 12/09/17 Yes Penicillins Allergy Intermediate NAUSEA/VOMITING 10/20/17 Yes amoxicillin Allergy Intermediate Nausea/Vomiting 10/20/17 Yes cephalexin Allergy Intermediate Nausea/Vomiting 10/20/17 Yes clavulanic acid Allergy Intermediate Nausea/Vomiting 10/20/17 Yes metoclopramide Allergy Intermediate NAUSEA/VOMITING 10/20/17 Yes Physical Exam Physical Exam Constitutional: Well developed, well nourished, no acute distress, non-toxic appearance. [] HENT: Normocephalic, atraumatic, bilateral external ears normal, oropharynx moist, no oral exudates, nose normal. [] Eyes: PERRLA, EOMI, conjunctiva normal, no discharge. [] Neck: Normal range of motion, no tenderness, supple, no stridor. [] Cardiovascular:Heart rate regular rhythm, no murmur [] Lungs & Thorax: Bilateral breath sounds clear to auscultation [] Abdomen: Bowel sounds normal, soft, no tenderness, no masses, no pulsatile masses. [] Skin: Warm, dry, no erythema, no rash. [] Back: No tenderness, no CVA tenderness. [] Extremities: No tenderness, no cyanosis, no clubbing, ROM intact, no edema. [] Neurologic: Alert and oriented X 3, normal motor function, normal sensory function, no focal deficits noted. [] Psychologic: Affect normal, judgement normal, mood normal. [] Current Patient Data Vital Signs Vital Signs Date Time Temp Pulse Resp B/P (MAP) Pulse Ox O2 Delivery O2 Flow Rate FiO2 10/21/19 22:15 70 20 113/45 (67) 99 Room Air 10/21/19 20:45 98.1 Lab Results Laboratory Tests Test 10/21/19 21:00 White Blood Count 7.0 x10^3/uL (4.0-11.0) Red Blood Count 3.42 x10^6/uL (3.50-5.40) L Hemoglobin 10.0 g/dL (12.0-15.5) L Hematocrit 30.8 % (36.0-47.0) L Mean Corpuscular Volume 90 fL (79-100) Mean Corpuscular Hemoglobin 29 pg (25-35) Mean Corpuscular Hemoglobin Concent 32 g/dL (31-37) Red Cell Distribution Width 16.1 % (11.5-14.5) H Platelet Count 244 x10^3/uL (140-400) Neutrophils (%) (Auto) 70 % (31-73) Lymphocytes (%) (Auto) 22 % (24-48) L Monocytes (%) (Auto) 6 % (0-9) Eosinophils (%) (Auto) 1 % (0-3) Basophils (%) (Auto) 0 % (0-3) Neutrophils # (Auto) 4.9 x10^3uL (1.8-7.7) Lymphocytes # (Auto) 1.6 x10^3/uL (1.0-4.8) Monocytes # (Auto) 0.4 x10^3/uL (0.0-1.1) Eosinophils # (Auto) 0.1 x10^3/uL (0.0-0.7) Basophils # (Auto) 0.0 x10^3/uL (0.0-0.2) Sodium Level 144 mmol/L (136-145) Potassium Level 3.8 mmol/L (3.5-5.1) Chloride Level 104 mmol/L (98-107) Carbon Dioxide Level 34 mmol/L (21-32) H Anion Gap 6 (6-14) Blood Urea Nitrogen 35 mg/dL (7-20) H Creatinine 2.6 mg/dL (0.6-1.0) H Estimated GFR (Cockcroft-Gault) 21.0 BUN/Creatinine Ratio 13 (6-20) Glucose Level 207 mg/dL (70-99) H Calcium Level 9.7 mg/dL (8.5-10.1) Total Bilirubin 0.2 mg/dL (0.2-1.0) Aspartate Amino Transferase (AST) 15 U/L (15-37) Alanine Aminotransferase (ALT) 15 U/L (14-59) Alkaline Phosphatase 54 U/L (46-116) Troponin I Quantitative < 0.017 ng/mL (0-0.055) Total Protein 6.4 g/dL (6.4-8.2) Albumin 3.4 g/dL (3.4-5.0) Albumin/Globulin Ratio 1.1 (1.0-1.7) Influenza Type A (Rapid) Negative (NEGATIVE) Influenza Type B (Rapid) Negative (NEGATIVE) EKG EKG []EKG Time 2111 Sinus rhythm left axis deviation no ST elevation no ST depression no acute UT Radiology/Procedures Radiology/Procedures [] Impressions: FINDINGS: Pacer with leads terminating the right atrium and ventricle. The cardiomediastinal silhouette and pulmonary vessels are within normal limits. The lung and pleural spaces are clear. IMPRESSION: No acute pulmonary process. Course & Med Decision Making Course & Med Decision Making Pertinent Labs and Imaging studies reviewed. (See chart for details) []Patient was evaluated for chief complaint. Workup consisted of laboratory analysis radiologic imaging and EKG. Results reviewed and discussed with patient and daughter. Patient will be admitted to the hospitalist. Dragon Disclaimer Dragon Disclaimer This electronic medical record was generated, in whole or in part, using a voice recognition dictation system. Departure Departure: Impression: Primary Impression: Chest pain Disposition: ADMITTED INPATIENT Condition: STABLE AFSHAN,MIGUEL A I DO Oct 21, 2019 23:43
[2019-10-21] MEDS ORDERED: ASPIRIN 81 MG TAB.CHEW PO ONE (23:45)
[2019-10-21] MEDS: ONDANSETRON PF 4 MG/2 ML VIAL. IVP PRN (23:52)
--- NOTE | 2019-10-22 00:52 | EKG ---
[address] [address] Test Date: 2019-10-21 Test Time: 21:11:20 Pat Name: CARINA TREADWELL Department: Room: Gender: F [employer] Operator: : [id number] Requested By: MIGUEL A CAVANAUGH Order Number: [id number] Reading MD: Measurements Intervals Mora Rate: 74 P: -90 NE: 210 QRS: -69 QRSD: 196 T: 99 QT: 474 QTc: 533 Interpretive Statements SINUS RHYTHM ABNORMAL LEFT AXIS DEVIATION LEFT ANTERIOR FASCICULAR BLOCK NON SPECIFIC INTRAVENTRICULAR BLOCK QRS(T) CONTOUR ABNORMALITY CONSIDER ANTEROSEPTAL MYOCARDIAL DAMAGE ABNORMAL ECG RI6.01 No previous ECG available for comparison
--- NOTE | 2019-10-22 01:16 | NUR ---
The patient, CARINA TREADWELL, 89 y/o, F admitted by JAMES MULTANI MD, was given written information regarding hospital policies, unit procedures and contact persons. Valuables were checked and logged. Call light in place. Will continue to monitor.
[2019-10-22 01:31] VITALS: BP 122/70
[2019-10-22] MEDS ORDERED: ACETAMINOPHEN 325 MG TABLET PO ONE (05:23)
[2019-10-22 05:29] VITALS: BP 104/62
[2019-10-22] MEDS ORDERED: MECLIZINE 12.5 MG TABLET. PO PRN (05:30)
[2019-10-22] MEDS ORDERED: LIDOCAINE (700MG/PATCH) PATCH. TP PRN (05:30)
[2019-10-22] MEDS ORDERED: ALPRAZolam 0.5 MG TABLET PO PRN (05:30)
[2019-10-22] MEDS ORDERED: ACETAMINOPHEN 325 MG TABLET PO PRN (05:30)
[2019-10-22] MEDS ORDERED: NITROGLYCERIN SUBLINGUAL 0.4 MG BOTTLE OF 25. SL PRN (05:30)
[2019-10-22] MEDS: ACETAMINOPHEN 325 MG TABLET PO PRN ×2 (05:39→12:11)
[2019-10-22] MEDS ORDERED: IPRATRPIUM/ALBUTEROL 0.5/2.5MG 3 ML NEBU. ONE (05:41)
--- NOTE | 2019-10-22 05:43 | NUR ---
Routine consult called at this time. Addendum: 10/22/19 at 0546 by SISSY MARIEE RN Cardiac
[2019-10-22] MEDS ORDERED: DEXTROSE 50% 25 GM / 50ML DISP.SYRIN. IV PRN (05:45)
[2019-10-22] MEDS: IPRATRPIUM/ALBUTEROL 0.5/2.5MG 3 ML NEBU. NEB SCH ×4 (05:48→20:18)
[2019-10-22] MEDS: INSULIN LISPRO 300 UNITS/3 ML VIAL. SQ SCH ×3 (08:00→16:50)
[2019-10-22] MEDS ORDERED: NON FORMULARY ITEM (Dexlansoprazole (Dexilant) 1 CAP) PO SCH (09:00)
[2019-10-22] MEDS: PANTOPRAZOLE 40 MG TABLET. PO SCH (09:02)
[2019-10-22] MEDS: GLIMEPIRIDE 2 MG TABLET PO SCH (09:02)
[2019-10-22] MEDS: FUROSEMIDE 40 MG TABLET PO SCH (09:03)
[2019-10-22] MEDS: AMIODARONE HCL 200 MG TABLET PO SCH ×2 (09:03→20:51)
[2019-10-22] MEDS: SENNOSIDES 8.6 MG TABLET PO SCH ×2 (09:03→20:51)
[2019-10-22] MEDS: ASPIRIN 81 MG TAB.CHEW PO SCH (09:03)
[2019-10-22] MEDS: MAGNESIUM OXIDE 400 MG TABLET PO SCH (09:03)
[2019-10-22] MEDS: APIXABAN 2.5 MG TABLET PO SCH ×2 (09:04→20:51)
[2019-10-22] MEDS: METOPROLOL TART IMMED RELEASE 25 MG TABLET PO SCH (09:04)
[2019-10-22 09:18] VITALS: BP 113/67
--- NOTE | 2019-10-22 10:34 | NUR ---
Patient laying comfortably in bed compliant with medication and assessment. Patient given an extra juice and apple sauce and was encouraged to eat here yogurt after a [id number].
--- NOTE | 2019-10-22 10:36 | NUR ---
Patient DPOa called nurse and was updated. Patient spoke with her son on the phone. Patient has no further needs at this time.
[2019-10-22 11:33] VITALS: BP 116/71
[2019-10-22] MEDS: ONDANSETRON PF 4 MG/2 ML VIAL. IVP PRN (12:14)
[2019-10-22] MEDS ORDERED: MAG HYDROX/AL HYDROX/SIMETH 30 ML ORAL.SUSP PO PRN (15:15)
[2019-10-22 15:49] VITALS: BP 119/57
--- NOTE | 2019-10-22 17:29 | HP ---
ADMIT DATE: 10/21/2019 HISTORY OF PRESENT ILLNESS: The patient is an 89-year-old -[place] female patient who came to the Emergency Room complaining of epigastric and substernal chest discomfort associated with nausea as well as vomiting. Denied any chills, rigors, or fever. Denied any diaphoresis. The discomfort worsens when the patient sits up. Denied any diarrhea. The cough is mostly dry without any sputum or hemoptysis. She was extensively investigated in the Emergency Room. Her white cell count was normal. Her chemistry showed that she has chronic kidney disease. Her first set of cardiac enzyme was less than 0.017. Her influenza A and B were negative. Her chest x-ray was unremarkable. She was admitted to do 2 more sets of cardiac enzyme and follow her closely. PAST MEDICAL HISTORY: Significant for coronary artery disease, essential hypertension, hypercholesterolemia, paroxysmal atrial fibrillation, chronic diastolic congestive heart failure and pulmonary hypertension. She is also known to have chronic anemia due to chronic kidney disease, generalized osteoarthritis, previous history of deep vein thrombosis, type 2 diabetes mellitus, gastroesophageal reflux disease, peripheral arterial disease, history of stroke with no residual effect and sick sinus syndrome as well as chronic renal failure. PAST SURGICAL HISTORY: Significant for permanent pacemaker placement as well as bilateral total knee arthroplasty. FAMILY HISTORY: Unremarkable and noncontributory. SOCIAL HISTORY: Lives at home with her son. She does not smoke, drink alcohol or use any recreational drugs. She ambulates with a walker. ALLERGIES: SHE IS ALLERGIC TO INFLUENZA VIRUS VACCINE, PENICILLIN, AMOXICILLIN, CEPHALEXIN, AUGMENTIN WELL METOCLOPRAMIDE. MEDICATIONS: She is currently on following medications: She is on ipratropium bromide, albuterol sulfate in 3 mL by nebulizer 4 times a day, apixaban 2.5 mg twice a day, amiodarone 200 mg twice a day, atorvastatin calcium 10 mg daily. She is on nitroglycerin 0.4 mg tablet sublingually every 5 minutes x 3, metoprolol tartrate 12.5 mg once a day. She is on aspirin 81 mg once a day, Tylenol 650 mg every 6 hours, sertraline 25 mg at bedtime, trazodone 50 mg at bedtime, alprazolam 0.25 mg, she takes half a tablet 3 times a day, Requip 0.25 mg at bedtime, furosemide 40 mg daily, magnesium oxide 800 mg once a day, senna 25 one tablet 3 times a day, Dexilant 1 capsule daily, Protonix 40 mg daily. She is on Lantus insulin for Toujeo SoloSTAR 20 units at bedtime and Humalog insulin KwikPen as insulin sliding scale 3 times a day, glimepiride 4 mg once a day, Lidoderm patch applied topically on for 12 hours and off for 12 hours. She is on ergocalciferol 50,000 international unit once a week. PHYSICAL EXAMINATION: GENERAL: On arrival to the Emergency Room, she looked well and was clearly in no apparent respiratory distress, was slightly pale, but no jaundice, cyanosis or thyromegaly. No jugular venous distension. No lower limb edema. VITAL SIGNS: Her heart rate was 74, blood pressure 141/55, temperature was 98.1, respiratory rate was 20, and oxygen saturation was 98% on room air. HEAD, EYES, EARS, NOSE AND THROAT: Showed normocephalic, atraumatic. NECK: Supple. HEART: Showed normal first and second heart sounds. No gallop or murmur. CHEST: Clear to auscultation. No crepitation or rhonchi. ABDOMEN: Distended, soft, nontender. NEUROLOGIC: She was awake, alert, responding appropriately. All cranial nerves intact. EXTREMITIES: She moves extremities without difficulty. She ambulates with a walker. LABORATORY DATA: Her lab work on arrival showed a white cell count of 7000, hemoglobin 10, hematocrit 30, MCV 90 and platelet count 244,000. Her chemistry as of yesterday showed a serum sodium 144, potassium 3.8, chloride 104, bicarbonate 34, anion gap of 6, BUN 35, creatinine 2.6, estimated GFR was 21 mg/dL, glucose was 207, calcium was 9.7. Total bilirubin, AST, ALT, alkaline phosphatase were normal. Total protein was 6.4, albumin was 3.4. Her influenza A and B were negative. Her chest x-ray showed pacer with leads terminating in the right atrium and ventricle. The cardiomediastinal silhouette and pulmonary vessels are within normal limits. The lungs and pleural spaces are clear. ASSESSMENT AND PLAN: The patient was admitted to do 2 more sets of cardiac enzyme and to follow her closely. We will continue with all her current medication. I will also start her on sliding scale insulin. I will add Mylanta. She seemed to have severe acid reflux and perhaps also Carafate and add serum lipase to her lab work this morning. JAMES MULTANI MD DR: ESTEPHANIA/deepak JOB#: [id number] / [id number]
[2019-10-22 19:30] VITALS: BP 111/72
[2019-10-22] MEDS: ATORVASTATIN CALCIUM 10 MG TABLET. PO SCH (20:51)
[2019-10-22] MEDS: SERTRALINE 25 MG TABLET. PO SCH (20:51)
[2019-10-22] MEDS: rOPINIRole 0.5 MG TABLET. PO SCH (20:51)
[2019-10-22] MEDS: traZODone 50 MG TABLET. PO SCH (20:51)
[2019-10-22] MEDS: INSULIN GLARGINE SYRINGE. SQ SCH (20:52)
[2019-10-22] MEDS ORDERED: INSULIN GLARGINE HUM REC ANLOG 20 UNIT SQ SCH (21:00)
--- NOTE | 2019-10-22 21:49 | PN ---
DATE: 10/22/2019 SUBJECTIVE: The patient is resting, slightly propped up in bed, in no apparent distress. She continued to complain of this retrosternal chest pain that is burning in nature, associated with cough. No fever, no shortness of breath. OBJECTIVE: GENERAL: When I examined her, she looked well and was clearly in no apparent respiratory distress. She is pale, but no jaundice, cyanosis or thyromegaly. No jugular venous distension. No lower limb edema. VITAL SIGNS: Her heart rate was 74, blood pressure was 98/57, temperature was 98.1, respiratory rate 22, and oxygen saturation was 100% on room air. HEAD, EYES, EARS, NOSE AND THROAT: Showed she is normocephalic, atraumatic. NECK: Supple. HEART: Showed normal first and second heart sounds. No gallop or murmur. CHEST: Clear to auscultation. No crepitation or rhonchi. ABDOMEN: Distended, soft, nontender. No guarding or rigidity. No organomegaly. All hernial orifice intact. Bowel sounds normal. NEUROLOGIC: She was sleepy, but arousable. All cranial nerves intact. She moves extremities without difficulty. She usually ambulates with a walker. She has 2 more sets of cardiac enzymes that ruled out myocardial infarction. PLAN: My plan is to add Mylanta 30 mL every 4 hours, repeat all her labs again tomorrow. Continue with physical and occupational therapy. JAMES MULTANI MD DR: ESTEPHANIA/deepak JOB#: [id number] / [id number]
[2019-10-23 00:06] VITALS: BP 106/61
[2019-10-23] MEDS: IPRATRPIUM/ALBUTEROL 0.5/2.5MG 3 ML NEBU. NEB SCH ×4 (04:54→19:56)
[2019-10-23 06:15] VITALS: BP 117/68
[2019-10-23 07:22] LABS: HEMATOCRIT 30.4 % (36.0-47.0); HEMOGLOBIN 9.5 g/dL (12.0-15.5); RED BLOOD COUNT 3.31 x10^6/uL (3.50-5.40); RED CELL DISTRIBUTION WIDTH 16.5 % (11.5-14.5); WHITE BLOOD COUNT 6.2 x10^3/uL (4.0-11.0)
[2019-10-23 07:36] LABS: ALBUMIN/GLOBULIN RATIO 0.9 (1.0-1.7); CALCIUM 8.6 mg/dL (8.5-10.1); CREATININE 2.6 mg/dL (0.6-1.0); POTASSIUM 4.4 mmol/L (3.5-5.1); TOTAL BILIRUBIN 0.2 mg/dL (0.2-1.0); TOTAL PROTEIN 6.3 g/dL (6.4-8.2)
[2019-10-23] MEDS: INSULIN LISPRO 300 UNITS/3 ML VIAL. SQ SCH ×3 (08:00→17:00)
[2019-10-23] MEDS: SENNOSIDES 8.6 MG TABLET PO SCH ×2 (08:05→21:10)
[2019-10-23] MEDS: ASPIRIN 81 MG TAB.CHEW PO SCH (08:08)
[2019-10-23] MEDS: MAGNESIUM OXIDE 400 MG TABLET PO SCH (08:08)
[2019-10-23] MEDS: METOPROLOL TART IMMED RELEASE 25 MG TABLET PO SCH (08:08)
[2019-10-23] MEDS: PANTOPRAZOLE 40 MG TABLET. PO SCH (08:08)
[2019-10-23] MEDS: AMIODARONE HCL 200 MG TABLET PO SCH ×2 (08:08→21:10)
[2019-10-23] MEDS: GLIMEPIRIDE 2 MG TABLET PO SCH (08:08)
[2019-10-23] MEDS: FUROSEMIDE 40 MG TABLET PO SCH (08:09)
[2019-10-23] MEDS: APIXABAN 2.5 MG TABLET PO SCH ×2 (08:09→21:11)
--- NOTE | 2019-10-23 09:34 | CONS ---
DATE OF CONSULTATION: 10/23/2019 REASON FOR CONSULTATION: Chest pain. HISTORY OF PRESENT ILLNESS: The patient is an 89-year-old woman who is well known to our service, who presents to the hospital in the setting of some chest discomfort and cough. Workup thus far has been unrevealing. She has had multiple prior admissions with similar complaints. She usually follows with [facility] and at her last admission in 04/2019, she had extensive workup including echocardiogram, which was unremarkable. Currently, the patient states that her chest pain is sporadic in nature and it is not associated with activity. She has no significant relief with nitroglycerin use. She denies any other acute issues. She is with psychosocial stressors that she has been struggling with. PAST MEDICAL HISTORY: 1. Paroxysmal atrial fibrillation. 2. Coronary artery disease, status post PCI. 3. Diastolic heart failure. 4. Mild pulmonary hypertension. 5. Hypertension. 6. Dyslipidemia. 7. Sick sinus syndrome, status post dual chamber pacemaker. 8. Prior history of CVA. 9. Gastroesophageal reflux disease and esophageal spasm. 10. Anemia of chronic disease. 11. Chronic kidney disease. 12. Diabetes. SOCIAL HISTORY: The patient lives at home. No alcohol, tobacco or illicit drug use. PAST SURGICAL HISTORY: Pacemaker and total knee replacement. FAMILY HISTORY: Noncontributory. CURRENT CARDIOVASCULAR MEDICATIONS: As follows: 1. Eliquis 2.5 mg p.o. b.i.d. 2. Atorvastatin 10 mg daily. 3. Aspirin 81 mg daily. 4. Metoprolol 12.5 mg p.o. daily. 5. Lasix 40 mg daily. 6. Amiodarone 200 mg p.o. b.i.d. 7. Aspirin 81 mg daily. REVIEW OF SYSTEMS: Negative unless otherwise mentioned above in HPI. ALLERGIES: MULTIPLE MEDICATIONS NOTED IN THE CHART. PHYSICAL EXAMINATION: VITAL SIGNS: Afebrile, 79, 20, 117/68, 98% on room air. GENERAL: She is alert and oriented, in mild distress from being weak and frail, but otherwise she is alert and oriented. HEAD AND NECK: Unremarkable. CARDIAC: Deferred. LUNGS: Deferred. EXTREMITIES: No significant lower extremity edema. DIAGNOSTIC STUDIES: Hemoglobin 9.5, platelets 181. Creatinine 2.6. BNP is obtained. Chest x-ray is grossly unremarkable. Echocardiogram from April revealed ejection fraction of 55% with mild pulmonary hypertension. IMPRESSION: 1. Noncardiac chest pain. 2. Multiple cardiovascular comorbidities as noted above. RECOMMENDATIONS: From a purely cardiac standpoint given that she had a normal echocardiogram less than 6 months ago, lack of any cardiac enzyme elevation and no significant EKG changes at this present time, she will be discharged to home on her current medical therapy. No further cardiac testing is necessary. She may follow up with her primary lockstitch binder for further testing as needed. Thank you for this consultation. DANIELLE JONES MD DR: REGLA/deepak JOB#: [id number] / [id number]
[2019-10-23 12:28] VITALS: BP 125/70
--- NOTE | 2019-10-23 13:04 | PN ---
DATE: SUBJECTIVE: The patient is sitting at the edge of the bed comfortably, in no apparent distress. Her main complaint now is pain in her neck on the left side, which is her chronic complaint and also pain in the left side of the chest. The retrosternal pain has largely subsided. I did start her on Mylanta and continued on her proton pump inhibitor and apparently that helped the pain. PHYSICAL EXAMINATION: GENERAL: When I examined her, she looked pale. No jaundice, cyanosis or thyromegaly. No jugular venous distention or limb edema. VITAL SIGNS: Her heart rate was 79, blood pressure 117/68, temperature was 97.7, respiratory rate was 20 and oxygen saturation was 98%. HEAD, EYES, EARS, NOSE AND THROAT: Normocephalic, atraumatic. NECK: Supple. HEART: Normal first and second heart sounds. No gallop or murmur. CHEST: Clear to auscultation. No crepitation or rhonchi. ABDOMEN: Distended, soft, nontender. NEUROLOGIC: She was awake, alert, responding appropriately. All cranial nerves intact. She moves extremities without difficulty. She ambulates with a walker. Her intake and output were incompletely recorded. LABORATORY DATA: As of this morning showed a serum sodium 141, potassium 4.4, chloride 106, bicarbonate 26, anion gap of 9, BUN 38, creatinine 2.6, estimated GFR was 21 mL per minute. Her glucose was 55, calcium was 8.6. Total bilirubin, AST, ALT, alkaline phosphatase were normal. Total protein was 6.3, albumin 3. Her white cell count was 6200, hemoglobin 9.5, hematocrit 30, MCV 92 and platelet count of 181,000. Chest x-ray was unremarkable. ASSESSMENT: Chest pain, atypical; myocardial infarction was ruled out. She has 3 sets of cardiac enzymes that were normal and pain probably due to degenerative disk disease mostly of cervical spine and left sided chest pain for which I will arrange for her to have x-ray of her left sided rib view. I did actually CT scan of her cervical spine, which showed that the patient has anterior cervical diskectomy and fusion, hardware identified at C6 without evidence of hardware failure. She has [id number] cervical spondylosis as described in detail. Her right shoulder showed mild glenohumeral and acromioclavicular joint osteoarthritis and decreased subacromial space, this may be projectional or due to rotator cuff tear. PLAN: Continue with current medication. Continue with physical and occupational therapy. I will order left sided rib view and hopefully discharge her back home tomorrow. JAMES MULTANI MD DR: ESTEPHANIA/deepak JOB#: [id number] / [id number]
[2019-10-23] MEDS: ACETAMINOPHEN 325 MG TABLET PO PRN (14:32)
[2019-10-23 14:37] VITALS: BP 121/75
[2019-10-23 20:05] VITALS: BP 117/62
[2019-10-23] MEDS: rOPINIRole 0.5 MG TABLET. PO SCH (21:10)
[2019-10-23] MEDS: traZODone 50 MG TABLET. PO SCH (21:10)
[2019-10-23] MEDS: ATORVASTATIN CALCIUM 10 MG TABLET. PO SCH (21:11)
[2019-10-23] MEDS: SERTRALINE 25 MG TABLET. PO SCH (21:12)
[2019-10-23] MEDS: INSULIN GLARGINE SYRINGE. SQ SCH (21:16)
[2019-10-24] MEDS: IPRATRPIUM/ALBUTEROL 0.5/2.5MG 3 ML NEBU. NEB SCH ×2 (05:01→09:17)
[2019-10-24 06:16] VITALS: BP 93/55
[2019-10-24] MEDS: INSULIN LISPRO 300 UNITS/3 ML VIAL. SQ SCH (08:00)
[2019-10-24] MEDS: MAGNESIUM OXIDE 400 MG TABLET PO SCH (08:45)
[2019-10-24] MEDS: AMIODARONE HCL 200 MG TABLET PO SCH (08:46)
[2019-10-24] MEDS: METOPROLOL TART IMMED RELEASE 25 MG TABLET PO SCH (08:47)
[2019-10-24] MEDS: PANTOPRAZOLE 40 MG TABLET. PO SCH (08:47)
[2019-10-24] MEDS: APIXABAN 2.5 MG TABLET PO SCH (08:47)
[2019-10-24] MEDS: ASPIRIN 81 MG TAB.CHEW PO SCH (08:47)
[2019-10-24] MEDS: GLIMEPIRIDE 2 MG TABLET PO SCH (08:47)
[2019-10-24] MEDS: FUROSEMIDE 40 MG TABLET PO SCH (08:48)
[2019-10-24] MEDS: SENNOSIDES 8.6 MG TABLET PO SCH (08:49)
[2019-10-24 10:32] VITALS: BP 135/65
--- NOTE | 2019-10-24 10:46 | DISCH ---
HOME HEALTH DISCHARGE/MEDS DISCHARGE INFORMATION: Discharge Date: Oct 24, 2019 Final Diagnosis: Atypical chest pain Gerd Chronic diastolic CHF Condition on Discharge: Stable CODE STATUS: Code Status: Full HOME HEALTH: Face to Face: I certify this patient is under my care and that I, or a nurse practitioner or physician's operator assistant i cementing working with me, had a face to face encounter that meets the physician face to face encounter requirements with this patient on 10/24/19 Medical Condition(s): CHF Physical Therapy For: Evalulation/Treatment Occupational Therapy For: Evaluation/Treatment POST DISCHARGE ORDERS: Activity Instructions for Disc: Resume previous activity DIET AFTER DISCHARGE: ADA CERTIFICATION STATEMENT: Certification Statement: Based on the above finding, I certify that this patient is confined to the home and needs intermittent penitentiary care, physical therapy and/or speech therapy, or continues to need occupational therapy.~ This patient is under my care, and I have initiated the establishment of the plan of care.~ This patient will be followed by myself or a community physician who will periodically review the plan of care. DISCHARGE MEDICATIONS: Home Meds Reported Medications Ergocalciferol (Vitamin D2) (VITAMIN D2) 50,000 Unit Capsule, 1 TAB PO WEEKLY for SUPPLEMENT NOT GIVEN IN THE HOSPITAL RESTART ON YOUR REGULAR DAY 01/20/19 Glimepiride (GLIMEPIRIDE) 4 Mg Tablet, 1 TAB PO DAILY for DIABETES LAST DOSE GIVEN: DATE: TODAY TIME: AM NEXT DOSE DUE: DATE: TOMORROW TIME: AM 01/20/19 Sertraline Hcl (ZOLOFT) 25 Mg Tablet, 1 TAB PO HS for DEPRESSION LAST DOSE GIVEN: DATE: YESTERDAY TIME: AT BEDTIME NEXT DOSE DUE: DATE: TODAY TIME: AT BEDTIME 11/16/18 Trazodone Hcl (TRAZODONE HCL) 50 Mg Tablet, 50 MG PO HS for INSOMNIA LAST DOSE GIVEN: DATE: YESTERDAY TIME: AT BEDTIME NEXT DOSE DUE: DATE: TODAY TIME: AT BEDTIME 11/12/18 Furosemide (FUROSEMIDE) 40 Mg Tablet, 40 MG PO DAILY for FLUID RETENTION LAST DOSE GIVEN: DATE: TODAY TIME: AM NEXT DOSE DUE: DATE: TOMORROW TIME: AM 11/12/18 Sennosides (SENOKOT) 8.6 Mg Tablet, 8.6 MG PO BID for CONSTIPATION LAST DOSE GIVEN: DATE: TODAY TIME: AM NEXT DOSE DUE: DATE: TODAY TIME: PM 07/06/18 Ipratropium/Albuterol Sulfate (DUONEB 0.5-3(2.5) MG/3 ML) 3 Ml Ampul.neb, 3 ML NEB QID for SHORTNESS OF BREATH LAST DOSE GIVEN: DATE: TODAY TIME: AM NEXT DOSE DUE: DATE: TODAY TIME: EARLY AFTERNOON 07/06/18 Lidocaine (Lidocaine PATCH ) 1 Each Adh..patch, 1 EACH TP PRN DAILY PRN for PAIN NOT GIVEN TODAY NEXT DOSE DUE: DATE: TODAY TIME: IF AND WHEN NEEDED 07/06/18 Insulin Lispro (Humalog Kwikpen) Unknown Strength Insuln.pen, SQ TIDAC for HIGH BLOOD SUGAR-DIABETES LAST DOSE GIVEN: DATE: TODAY TIME: WITH LUNCH NEXT DOSE DUE: DATE: TODAY TIME: WITH DINNER 07/06/18 Meclizine Hcl (MECLIZINE HCL) 25 Mg Tablet, 1 TAB PO PRN TID PRN for DIZZINESS NOT GIVEN TODAY NEXT DOSE DUE: DATE: TIME: IF AND WHEN NEEDED 07/06/18 Insulin Glargine,Hum.rec.anlog (Toujeo Solostar) 300 Unit/1 Ml Insuln.pen, 20 U NIT SQ HS for HIGH BLOOD SUGAR-DIABETES LAST DOSE GIVEN: DATE: YESTERDAY TIME: AT BEDTIME NEXT DOSE DUE: DATE: TODAY TIME: AT BEDTIME 07/06/18 Dexlansoprazole (DEXILANT) 60 Mg Cap., 1 CAP PO DAILY for HEARTBURN LAST DOSE GIVEN: DATE: TIME: AM NEXT DOSE DUE: DATE: TOMORROW TIME: AM 07/06/18 Atorvastatin Calcium (ATORVASTATIN CALCIUM) 10 Mg Tablet, 1 TAB PO HS for HIGH CHOLESTEROL LAST DOSE GIVEN: DATE: YESTERDAY TIME: AT BEDTIME NEXT DOSE DUE: DATE: TODAY TIME: AT BEDTIME 07/06/18 Apixaban (ELIQUIS) 2.5 Mg Tablet, 2.5 MG PO BID for PREVENT BLOOD CLOTS LAST DOSE GIVEN: DATE: TODAY TIME: AM NEXT DOSE DUE: DATE: TODAY TIME: PM 07/06/18 Amiodarone Hcl (AMIODARONE HCL) 200 Mg Tablet, 1 TAB PO BID for IRREGULAR HEART RATE LAST DOSE GIVEN: DATE: TIME: AM NEXT DOSE DUE: DATE: TODAY TIME: PM 07/06/18 Metoprolol Tartrate (METOPROLOL TARTRATE) 25 Mg Tablet, 0.5 TAB PO DAILY for HIGH BLOOD PRESSURE LAST DOSE GIVEN: DATE:TODAY TIME:MORNING NEXT DOSE DUE: DATE:TOMORROW TIME:MORNING 04/23/18 Ropinirole Hcl (REQUIP) 0.5 Mg Tablet, 0.25 MG PO QHS for RESTLESS LEGS LAST DOSE GIVEN: DATE: YESTERDAY TIME: AT BEDTIME NEXT DOSE DUE: DATE: TODAY TIME: AT BEDTIME 03/05/18 Pantoprazole Sodium (PROTONIX) 40 Mg Tablet.dr, 1 TAB PO DAILY for HEARTBURN LAST DOSE GIVEN: DATE: TODAY TIME: BEFORE BREAKFAST NEXT DOSE DUE: DATE: TOMORROW TIME: BEFORE BREAKFAST 03/05/18 Aspirin (ASPIRIN) 81 Mg Tab.chew, 81 MG PO DAILY for HEART HEALTH LAST DOSE GIVEN: DATE: TODAY TIME: AM NEXT DOSE DUE: DATE: TOMORROW TIME: AM 03/05/18 Acetaminophen (TYLENOL) 325 Mg Tablet, 2 TAB PO PRN Q6HRS PRN for PAIN NOT GIVEN TODAY NEXT DOSE DUE: DATE: TODAY TIME: IF AND WHEN NEEDED 03/27/17 Magnesium Oxide (MAGNESIUM OXIDE) 400 Mg Tablet, 800 MG PO DAILY for SUPPLEMENT LAST DOSE GIVEN: DATE: TODAY TIME: AM NEXT DOSE DUE: DATE: TOMORROW TIME: AM 03/27/17 Nitroglycerin (NITROGLYCERIN SubLingual) 0.4 Mg Tab.subl, 0.4 MG SL PRN Q5MIN PRN for CHEST PAIN NOT GIVEN TODAY NEXT DOSE DUE: DATE: TODAY TIME: IF AND WHEN NEEDED 12/19/16 Alprazolam (XANAX) 0.25 Mg Tablet, 0.5 MG PO PRN TID PRN for ANXIETY / AGITATION NOT GIVEN TODAY NEXT DOSE DUE: DATE: TODAY TIME: IF AND WHEN NEEDED 12/17/16 JAMES MULTANI MD Oct 24, 2019 10:46
--- NOTE | 2019-10-24 11:13 | NUR ---
Discharge Note: CARINA TREADWELL Discharge instructions and discharge home medications reviewed with Patient and a copy given. All questions have been answered and understanding verbalized. The following instructions and handouts were given: Take medications as prescribed. Follow up with Primary Care Provider or sooner if necessary. Discontinued lines and drains:no IV present. Patient discharged to home.
--- NOTE | 2019-10-24 14:55 | DS ---
DATE OF DISCHARGE: 10/24/2019 HOSPITAL COURSE: The patient is resting, sitting on the edge of the bed comfortably in no apparent distress. On questioning her, she denied any complaints except that she continued to have left-sided chest pain. A chest x-ray was unremarkable. The patient had no further episodes of retrosternal chest pain, shortness of breath, cough or phlegm. PHYSICAL EXAMINATION: GENERAL: When I examined her, she looked pale, not jaundiced, cyanosis or thyromegaly. No jugular venous distention. No limb edema. VITAL SIGNS: Her heart rate was 59, blood pressure was 135/65, temperature was 98.1, respiratory rate was 18 and oxygen saturation was 96%. The rest of clinical exam is stable. NEUROLOGIC: Grossly intact. She ambulates with a walker. LABORATORY DATA: This morning showed a white cell count of 6200, hemoglobin 10, hematocrit 30, MCV 92, and platelet count of 181,000. Her chemistry showed a serum sodium 141, potassium 4.4, chloride 106, bicarbonate 26, anion gap of 9, BUN 38, creatinine 2.6, estimated GFR was 21 mL per minute. Her glucose was 70, calcium was 8.6. Total bilirubin, AST, ALT, alkaline phosphatase were normal. Total protein 6.3, albumin 3. Her influenza A and B were negative. DISCHARGE MEDICATIONS: The patient was discharged home with home health to continue on Tylenol 650 mg every 6 hours, alprazolam 0.5 mg 3 times a day, amiodarone 200 mg twice a day, apixaban 2.5 mg twice a day, aspirin 81 mg once a day, atorvastatin calcium 10 mg at bedtime, Dexilant 60 mg daily, vitamin D2 50,000 International Units once a week, furosemide 40 mg daily, glimepiride 4 mg p.o. daily and Lantus insulin 20 units at bedtime. She is on Humalog insulin as insulin sliding scale before meals, ipratropium bromide, albuterol sulfate in 3 mL by nebulizer 4 times a day, Lidoderm patch applied topically on for 12 hours and off for 12 hours to her left neck and left side of the chest, magnesium oxide 800 mg once a day, meclizine 25 mg 3 times a day, metoprolol tartrate 12.5 mg once a day, nitroglycerin 0.4 mg sublingual every 5 minutes, Protonix 40 mg once a day, Requip 0.25 mg at bedtime, senna 1 tablet twice a day, sertraline 25 mg at bedtime and trazodone 50 mg at bedtime. FINAL DISCHARGE DIAGNOSES: Chest pain, noncardiac, acute myocardial infarction is ruled out. Other medical problems include coronary artery disease, status post PCI with stent deployment, chronic diastolic congestive heart failure, pulmonary hypertension, hypertension, hyperlipidemia, sick sinus syndrome, status post dual chamber pacemaker, paroxysmal atrial fibrillation, gastroesophageal reflux disease, anemia of chronic kidney disease, chronic kidney disease, type 2 diabetes with DICTATION ENDS HERE JAMES MULTANI MD DR: ESTEPHANIA/deepak JOB#: [id number] / [id number]
[2019-10-26] MEDS ORDERED: CHOLECALCIFEROL (VITAMIN D3) 50,000 UNIT CAPSULE PO SCH (09:00)
== END 2019-10-24 12:19 | disposition home or self-care (01) | DRG 313 ==
LOC: ER 20:38 → 1 SOUTH 22:00
PROVIDERS: ADMIT Internal Medicine; ATTEND Internal Medicine
DX: R07.89 Other chest pain (principal); I13.0 Hypertensive heart and chronic kidney disease with heart failure and stage 1 through stage 4 chronic kidney disease, or unspecified chronic kidney disease; I50.32 Chronic diastolic (congestive) heart failure; F41.9 Anxiety disorder, unspecified; I49.5 Sick sinus syndrome; Z96.653 Presence of artificial knee joint, bilateral; F03.90 Unspecified dementia, unspecified severity, without behavioral disturbance, psychotic disturbance, mood disturbance, and anxiety; I25.10 Atherosclerotic heart disease of native coronary artery without angina pectoris; E78.00 Pure hypercholesterolemia, unspecified; I48.0 Paroxysmal atrial fibrillation; I27.20 Pulmonary hypertension, unspecified; E11.51 Type 2 diabetes mellitus with diabetic peripheral angiopathy without gangrene; K21.9 Gastro-esophageal reflux disease without esophagitis; M19.019 Primary osteoarthritis, unspecified shoulder; N18.9 Chronic kidney disease, unspecified; E78.5 Hyperlipidemia, unspecified; M47.812 Spondylosis without myelopathy or radiculopathy, cervical region; M50.30 Other cervical disc degeneration, unspecified cervical region; D63.1 Anemia in chronic kidney disease; Z95.5 Presence of coronary angioplasty implant and graft; Z95.0 Presence of cardiac pacemaker; Z86.73 Personal history of transient ischemic attack (TIA), and cerebral infarction without residual deficits; I25.2 Old myocardial infarction; E11.22 Type 2 diabetes mellitus with diabetic chronic kidney disease; Z86.718 Personal history of other venous thrombosis and embolism; Z88.1 Allergy status to other antibiotic agents; Z88.0 Allergy status to penicillin; Z88.7 Allergy status to serum and vaccine
CPT/HCPCS: 36415; 71045; 71100; 80053; 82947; 83690; 84484; 85025; 85027; 87804; 93005; 94640; J1815; J2405; 99285-25

== ENCOUNTER 2020-05-01 11:31 | Emergency (ER) | payer MEDICARE, OTHER ==
[~2020-05-01] VITALS: Ht 162.6 cm; Wt 85.0 kg
[~2020-05-01 11:31] MED LIST changes: -ASPI-612 PO; +ASPI-889 PO; -PANT40TA5 PO; +PANT40TA6 PO; -WARF-78 PO; +WARF5TAB2 PO
[2020-05-01 11:54] VITALS: BP 160/74
[2020-05-01] MEDS ORDERED: DEXTROSE 50% 25 GM / 50ML DISP.SYRIN. IV ONE (12:30)
--- NOTE | 2020-05-01 12:55 | EKG ---
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
[2020-05-01 13:01] LABS: BASO # 0.1 x10^3/uL (0.0-0.2); BASO % 1 % (0-3); EOS # 0.1 x10^3/uL (0.0-0.7); EOS % 2 % (0-3); HEMATOCRIT 32.7 % (36.0-47.0); HEMOGLOBIN 10.4 g/dL (12.0-15.5); LYMPH # 3.1 x10^3/uL (1.0-4.8); LYMPH % 43 % (24-48); MEAN CORPUSCULAR HEMOGLOBIN 28 pg (25-35); MEAN CORPUSCULAR HGB CONC 32 g/dL (31-37); MEAN CORPUSCULAR VOLUME 90 fL (79-100); MONO # 0.4 x10^3/uL (0.0-1.1); MONO % 6 % (0-9); NEUT # 3.5 x10^3uL (1.8-7.7); NEUT % 49 % (31-73); PLATELET COUNT 201 x10^3/uL (140-400); RED BLOOD COUNT 3.65 x10^6/uL (3.50-5.40); RED CELL DISTRIBUTION WIDTH 16.1 % (11.5-14.5); WHITE BLOOD COUNT 7.2 x10^3/uL (4.0-11.0)
[2020-05-01 13:04] LABS: CALCIUM 9.8 mg/dL (8.5-10.1); CREATININE 2.6 mg/dL (0.6-1.0); POTASSIUM 3.7 mmol/L (3.5-5.1)
--- NOTE | 2020-05-01 13:11 | RAD ---
Examination: CT HEAD WO CONTRAST History: weak Comparison/Correlation: 09/06/2019 CT head without contrast Findings: Axial images of the head were obtained without contrast. Atrophy is present. No intracranial hemorrhage, midline shift, or mass effect. Cavernous carotid calcification noted. Bony structures are unremarkable. Impression: No suspicious process. Electronically signed by: Elvin Cuevas MD (05/01/2020 1:08 PM) [id number]
--- NOTE | 2020-05-01 13:12 | RAD ---
Examination: PORTABLE CHEST 1V History: Reason: weak / Spl. Instructions: / History: Comparison/Correlation: 10/21/2019 Findings: Portable frontal view of the chest was obtained. Triple lead left-sided pacemaker is present. Postoperative cervical spine fusion noted. Heart size and pulmonary vessels are normal. No infiltrate or pleural effusion. No pneumothorax. Bony structures are unremarkable. Impression: No active disease. Electronically signed by: Elvin Cuevas MD (05/01/2020 1:09 PM) [id number]
[2020-05-01 13:17] LABS: ALBUMIN 3.8 g/dL (3.4-5.0); ALBUMIN/GLOBULIN RATIO 0.9 (1.0-1.7); MAGNESIUM 2.3 mg/dL (1.8-2.4); TOTAL BILIRUBIN 0.4 mg/dL (0.2-1.0)
--- NOTE | 2020-05-01 14:02 | PHYS DOC ---
Past History Past Medical History: Anxiety, Arthritis, CHF, Dementia, Diabetes, Heart Disease, Hypertension, ID, Renal Disease, Stroke, TIA, UTI Past Surgical History: Pacemaker, Other Additional Past Surgical Histo: cardiac stents Smoking: Non-smoker Alcohol Use: None Drug Use: None General Adult EDM: Chief Complaint: MULTIPLE COMPLAINTS HPI: HPI: 89-year-old female past medical history of CHF w/pacemaker, CAD, insulin- dependent diabetes, A. fib on no AC, TIA, hypertension and hyperlipidemia, presents to the ED with patient's daughter, with multiple complaints. Concern for weight gain, weakness and fatigue over the past week. Patient states she has had no appetite and her last meal was yesterday morning. Reports she took her evening dose of long-acting insulin, 20 units. Is also on a sliding scale and took her morning dose of short-term insulin, on oral diabetic medication. Daughter is concerned that patient has gained approximately 5 to 10 pounds- worried for congestive heart failure exacerbation. Patient does reports epigastric pulling and squeezing pain, "for weeks," daughter states pmd and cardiology have evaluated her for these "chronic" complaints at [facility], last cath within the past 2 years. No mention of need for cardiac bypass. Pt not a candidate for L CEA or temporal artery biopsy due to CHF. Pt with h/o chronic left sided headache x2 years. Unable to have MRI - PM would have to be removed. PMD does not recommend given risk vs benefit. Pt denies any new vision loss/impairment. Requesting covid test although pt lives with her son and has not left the house in months. Daughter reports pt does not have dementia, has [facility] and is a full code. Pt is at her baseline mental status. Review of Systems: Review of Systems: Constitutional: Denies fever or chills Eyes: Denies change in visual acuity, blurry vision or vision loss HENT: Denies nasal congestion or sore throat Respiratory: Denies cough or shortness of breath or hemoptysis Cardiovascular: Denies chest pain or syncope GI: Denies melena, hematochezia, hematemesis nausea, vomiting, or diarrhea : Denies dysuria Musculoskeletal: Denies back pain or joint pain Integument: Denies rash or diaphoresis Neurologic: Denies neck stiffness, focal weakness or sensory changes, denies neck rigidity Endocrine: Denies polyuria or polydipsia Lymphatic: Denies swollen glands Psychiatric: Denies depression or anxiety Heart Score: Risk Factors: Risk Factors: DM, Current or recent (<one month) smoker, HTN, HLP, family history of CAD, obesity. Risk Scores: Score 0 - 3: 2.5% MACE over next 6 weeks - Discharge Home Score 4 - 6: 20.3% MACE over next 6 weeks - Admit for Clinical Observation Score 7 - 10: 72.7% MACE over next 6 weeks - Early Invasive Strategies Current Medications: Current Meds: Current Medications Medications (Trade) Dose Ordered Sig/Ruel Start Time Stop Time Status Last Admin Dose Admin Dextrose (Dextrose 50%-Water Syringe) 25 gm 1X ONCE 05/01/20 12:30 05/01/20 12:33 DC 05/01/20 12:33 25 GM Allergies: Allergies: Allergies Coded Allergies Type Severity Reaction Last Updated Verified Influenza Virus Vaccines Allergy Intermediate GENERALIZED BODY/JOINT ACHES 05/01/20 Yes Penicillins Allergy Intermediate NAUSEA/VOMITING 05/01/20 Yes amoxicillin Allergy Intermediate Nausea/Vomiting 05/01/20 Yes cephalexin Allergy Intermediate Nausea/Vomiting 05/01/20 Yes clavulanic acid Allergy Intermediate Nausea/Vomiting 05/01/20 Yes metoclopramide Allergy Intermediate NAUSEA/VOMITING 05/01/20 Yes Physical Exam: PE: Constitutional: Well developed, well nourished, no acute distress, non-toxic appearance. [] HENT: Normocephalic, atraumatic, bilateral external ears normal, Eyes: EOMI, conjunctiva normal, no discharge. [] Neck: Normal range of motion, supple, no stridor. [] Cardiovascular:Heart rate regular rhythm, S1S2 present Lungs & Thorax: Bilateral breath sounds clear to auscultation [] Abdomen: Bowel sounds normal, soft, no tenderness, no masses, no pulsatile masses. [] Skin: Warm, dry, no erythema, no rash. [] Back: No tenderness, Extremities: No tenderness, no cyanosis, no clubbing, ROM intact, +1/4 equal bl le edema Neurologic: Alert and oriented X 3, normal motor function, normal sensory function, no focal deficits noted. [] Psychologic: Affect normal, judgement normal, mood normal. [] Current Patient Data: Labs: Laboratory Tests Test 05/01/20 12:05 05/01/20 12:26 White Blood Count 7.2 x10^3/uL (4.0-11.0) Red Blood Count 3.65 x10^6/uL (3.50-5.40) Hemoglobin 10.4 g/dL (12.0-15.5) L Hematocrit 32.7 % (36.0-47.0) L Mean Corpuscular Volume 90 fL (79-100) Mean Corpuscular Hemoglobin 28 pg (25-35) Mean Corpuscular Hemoglobin Concent 32 g/dL (31-37) Red Cell Distribution Width 16.1 % (11.5-14.5) H Platelet Count 201 x10^3/uL (140-400) Neutrophils (%) (Auto) 49 % (31-73) Lymphocytes (%) (Auto) 43 % (24-48) Monocytes (%) (Auto) 6 % (0-9) Eosinophils (%) (Auto) 2 % (0-3) Basophils (%) (Auto) 1 % (0-3) Neutrophils # (Auto) 3.5 x10^3uL (1.8-7.7) Lymphocytes # (Auto) 3.1 x10^3/uL (1.0-4.8) Monocytes # (Auto) 0.4 x10^3/uL (0.0-1.1) Eosinophils # (Auto) 0.1 x10^3/uL (0.0-0.7) Basophils # (Auto) 0.1 x10^3/uL (0.0-0.2) Prothrombin Time 10.3 SEC (9.4-11.4) Prothrombin Time INR 1.0 (0.9-1.1) Activated Partial Thromboplast Time 26 SEC (23-33) Sodium Level 143 mmol/L (136-145) Potassium Level 3.7 mmol/L (3.5-5.1) Chloride Level 105 mmol/L (98-107) Carbon Dioxide Level 29 mmol/L (21-32) Anion Gap 9 (6-14) Blood Urea Nitrogen 44 mg/dL (7-20) H Creatinine 2.6 mg/dL (0.6-1.0) H Estimated GFR (Cockcroft-Gault) 21.0 BUN/Creatinine Ratio 17 (6-20) Glucose Level 55 mg/dL (70-99) L Calcium Level 9.8 mg/dL (8.5-10.1) Magnesium Level 2.3 mg/dL (1.8-2.4) Total Bilirubin 0.4 mg/dL (0.2-1.0) Aspartate Amino Transferase (AST) 21 U/L (15-37) Alanine Aminotransferase (ALT) 41 U/L (14-59) Alkaline Phosphatase 83 U/L (46-116) Creatine Kinase 91 U/L (26-192) Troponin I Quantitative < 0.017 ng/mL (0-0.055) MU-Vqr-Z-Type Natriuretic Peptide 2762 pg/mL (0-449) H Total Protein 8.0 g/dL (6.4-8.2) Albumin 3.8 g/dL (3.4-5.0) Albumin/Globulin Ratio 0.9 (1.0-1.7) L Lipase 47 U/L (73-393) L Glucose (Fingerstick) 45 mg/dL (70-99) L Vital Signs: Vital Signs Date Time Temp Pulse Resp B/P (MAP) Pulse Ox O2 Delivery O2 Flow Rate FiO2 05/01/20 11:54 98.0 70 22 160/74 (102) Room Air EKG: EKG: Sinus rhythm at 70 bpm, left axis deviation, left bundle branch block, QRS 206, QTC 537, T wave inversion 1 and aVL, scarbossa criteria and smiths modification negative Radiology/Procedures: Radiology/Procedures: IMAGING REPORT Signed PATIENT: CARINA TREADWELL ACCOUNT: [id number] : 1930 LOCATION: ER AGE: 89 SEX: F EXAM STATUS: REG ER ORD. PHYSICIAN: MONA MENDOZA DO REASON: weak PROCEDURE: CT HEAD WO CONTRAST Examination: CT HEAD WO CONTRAST History: weak Comparison/Correlation: 09/06/2019 CT head without contrast Findings: Axial images of the head were obtained without contrast. Atrophy is present. No intracranial hemorrhage, midline shift, or mass effect. Cavernous carotid calcification noted. Bony structures are unremarkable. Impression: No suspicious process. Electronically signed by: Elvin Domingo MD (05/01/2020 1:08 PM) [id number] DICTATED AND SIGNED BY: ELVIN DOMINGO MD DATE: 05/01/20 1309 CC: PATRICIA COOPER MD; MONA MENDOZA DO ~ IMAGING REPORT Signed PATIENT: CARINA TREADWELL ACCOUNT: [id number] : 1930 LOCATION: ER AGE: 89 SEX: F EXAM STATUS: REG ER ORD. PHYSICIAN: MONA MENDOZA DO REASON: weak PROCEDURE: PORTABLE CHEST 1V Examination: PORTABLE CHEST 1V History: Reason: weak / Spl. Instructions: / History: Comparison/Correlation: 10/21/2019 Findings: Portable frontal view of the chest was obtained. Triple lead left-sided pacemaker is present. Postoperative cervical spine fusion noted. Heart size and pulmonary vessels are normal. No infiltrate or pleural effusion. No pneumothorax. Bony structures are unremarkable. Impression: No active disease. Electronically signed by: Elvin Domingo MD (05/01/2020 1:09 PM) [id number] DICTATED AND SIGNED BY: ELVNI DOMINGO MD DATE: 05/01/20 1305 CC: PATRICIA COOPER MD; MONA MENDOZA DO ~ Course & Med Decision Making: Course & Med Decision Making Pertinent Labs and Imaging studies reviewed. (See chart for details) COVID-19 CRITERIA: The patient was evaluated during the global COVID-19 pandemic, and that diagnosis was suspected/considered upon their initial presentation. Their evaluation, treatment and testing was consistent with current guidelines for patients who present with complaints or symptoms that may be related to COVID-19. Pt presented to the ED with complaints of weakness and generalized fatigue, Accu-Chek on arrival with glucose of 45-hypoglycemia 2/2 poor oral intake. Amp of D50 given immediately. labs consistent with CKD, at baseline and a chronic st able normocytic anemia with no active bleeding. Troponin negative. Urinalysis with no ketones, bacteriruia, blood, leukocyte esterase or nitrates. No obvious signs of infection. Covid test pending. Pt and daughter were informed we would observe pt in ed, evaluate for heart failure/fluid overload and possible sources of infection. That we would perform frequent cbg checks before any medical clearance/discharge. Daughter became very aggressive and belligerent in ed after coming to ed desk and asking for a food tray that she did not receive promptly . I had called nutrition/cafeteria, this was pending. Pt had been given pt juice/snacks. Daughter was not aware D50 was given upon ed arrival. Repeat cbg pending (at this time an influx of ed pts occurred). Daughter aware of ed plan and started cursing at staff, called myself a bitch, refused to allow any further cbgs checks and demanded pt be discharged, that "after 5-6 hours you have done nothing for my mother, we've never been treated so poorly." Medical personal was not allowed to speak to pt due to daughters' outburst that was significantly disrupting care of other patients. Even after explaining that pt was not medically cleared from life threatening process, including hypoglycemia which can result in cardiac arrest and , I was unable to verbally deescalate pts' daughter who was asked to leave pts' room so that consent from pt could be obtained. I also explained that only the pt can refuse accucheck/or demand to be discharged because pt has [facility]. Security and nursing explosive operator supervisor involved in this process. Pt then consented to repeat glucose checks. Pt with no chest pain, dyspnea, confusion, ams or syncope throughout ed observation. Repeat glucose 74, patient is eating and drinking in the ED. I recommended to decrease pt's overnight long-acting insulin and perform hourly glucose checks, glucose should be above 70. Pt is not out of glucometer supplies, needs no refill. Has asymptomatic hypoglycemia secondary to poor oral intake. Patient afebrile with no leukocytosis. No evidence of congestive heart failure. I was able to apologize for any misunderstanding with pt, her daughter and nursing explosive operator supervisor present, that all intentions and efforts were being made to care for pt. I was able to answer all questions for daughter and pt. Daughter reports they are seeking a new primary care physician due to patient's chronic pain management- will provide referral. Strict ed return precautions given for symptomatic hypoglycemia. Encouraged urgent outpatient follow-up with PMD and pain management. Life-threatening processes were considered but are low suspicion at this time, given history and physical exam. Pt was educated on all prescription medications and adverse effects. All patient's questions were answered and pt was stable at time of discharge. Life-threatening differential includes cerebrovascular accident, cerebellar stroke, acute coronary syndrome, arrhythmia, Guillan Bliss syndrome, thyroid disease, central and peripheral vertigo, intracranial hemorrhage, vert ebrobasilar insufficiency, electrolyte disorder, rheumatologic or autoimmune disorder, cardiac arrest I spoken with the patient and her daughter, RN also gave instructions to pts' son who she lives with. I explained the patient's condition, diagnoses and treatment plan based on the information available to me at this time. I have answered the patient and her caregiver's questions and addressed any concerns. The patient and her caregivers have a good understanding of patient's diagnosis, condition and treatment plan as can be expected at this point. Vital signs have been stable. Patient's condition is stable and appropriate for discharge from the emergency department. Patient will pursue further outpatient evaluation with primary care physician or other designated or consulting physician as outlined in the discharge instructions. The patient and/or caregivers are agreeable to this plan of care and follow-up instructions have been explained in detail. The patient and/or caregivers have received these instructions in written form and have expressed an understanding of the discharge instructions. The patient and/or caregivers a re aware that any significant change of condition or worsening of symptoms should prompt immediate return to this or the closest emergency department or call to [facility]. [employer] Disclaimer: [employer] Disclaimer: This electronic medical record was generated, in whole or in part, using a voice recognition dictation system. Departure Departure: Impression: Primary Impression: Hypoglycemia Additional Impression: Weakness Disposition: 01 HOME/RESIDENCE PRIOR TO ADM Condition: STABLE Referrals: PATRICIA COOPER MD (PCP) Patient Instructions: Diabetes Meal Planning Guide, Hypoglycemia (Low Blood Sugar), Weakness Additional Instructions: Complete [facility] -primary care physician referral [address] [address] Mikel Hernandez MD - for Pain Management [facility] Address: [address] [address], [facility] [address] [place] [address] EMERGENCY DEPARTMENT GENERAL DISCHARGE INSTRUCTIONS Thank you for coming to [facility] (ED) today and trusting us with you care. We trust that you had a positivie experience in our Emergency Department. If you wish to speak to the department management, you may call the director at [phone]. YOUR FOLLOW UP INSTRUCTIONS ARE FOLLOWS: 1. Do you have a private Doctor? If you do not have a private doctor, please ask for a resource list of physicians or clinics that may be able to assist you with follow up care. 2. The Emergency Physician has interpreted your x-rays. The X-Ray specialist will also review them. If there is a change in the findings, you will be notified in 48 hours when at all possible. 3. A lab test or culture has been done, your results will be reviewed and you will be notified if you need a change in treatment. ADDITIONAL INSTRUCTIONS AND INFORMATION: 1. Your care today has been supervised by a physician who is specially trained in emergency care. Many problems require more than one evaluation for a complete diagnosis and treatment. We recommend that you schedule your follow up appointment as recommended to ensure complete treatment of you illness or injury. If you are unable to obtain follow up care and continue to have a problem, or if your condition worsens, we recommend that you return to the ED. 2. We are not able to safely determine your condition over the phone nor are we able to give sound medical advice over the phone. For these safety reasons, if you call for medical advice we will ask you to come to the ED for further evaluation. 3. If you have any questions regarding these discharge instructions please call the ED at [phone]. SAFETY INFORMATION: In the interest of safety, wellness, and injury prevention; we encourage you to wear your sealbelt, if you smoke; quite smoking, and we encourage family to use a protective helmet for bicycling and other sporting events that present an increased risk for head injury. IF YOUR SYMPTOMS WORSEN OR NEW SYMPTOMS DEVELOP, OR YOU HAVE CONCERNS ABOUT YOUR CONDITION; OR IF YOUR CONDITION WORSENS WHILE YOU ARE WAITING FOR YOUR FOLLOW UP APPOINTMENT; EITHER CONTACT YOUR PRIMARY CARE DOCTOR, THE PHYSICIAN WHOSE NAME AND NUMBER YOU WERE GIVEN, OR RETURN TO THE ED IMMEDIATELY. Justification of Admission: Justification of Admission: Justification of Admission Dx: N/A MONA MENDOZA DO May 01, 2020 14:02
[2020-05-01 14:31] LABS: BARBITURATES NEG (NEG); BENZODIAZEPINES POS (NEG); CANNABINOIDS NEG (NEG); COCAINE NEG (NEG); METHADONE NEG (NEG); OPIATES NEG (NEG); PHENCYCLIDINE NEG (NEG)
[2020-05-01 14:33] LABS: BILIRUBIN,URINE NEG (NEG); CLARITY,URINE CLEAR; COLOR,URINE YELLOW; GLUCOSE,URINE NEG (NEG); UROBILINOGEN,URINE 0.2 mg/dL (0.2 mg/dL)
[2020-05-01 14:34] LABS: BACTERIA,URINE 0 /HPF (0-FEW); NITRITE,URINE NEG (NEG); SQUAMOUS EPITHELIAL CELL,UR MOD /LPF; WBC,URINE OCC /HPF (0-4)
[2020-05-01 14:58] LABS: AMPHETAMINE/METHAMPHETAMINE NEG (NEG)
== END 2020-05-01 16:30 | disposition home or self-care (01) ==
LOC: ER 11:31
DX: E11.649 Type 2 diabetes mellitus with hypoglycemia without coma (principal); R53.1 Weakness; F41.9 Anxiety disorder, unspecified; M19.90 Unspecified osteoarthritis, unspecified site; I11.0 Hypertensive heart disease with heart failure; I50.9 Heart failure, unspecified; F03.90 Unspecified dementia, unspecified severity, without behavioral disturbance, psychotic disturbance, mood disturbance, and anxiety; I25.2 Old myocardial infarction; Z87.440 Personal history of urinary (tract) infections; Z86.73 Personal history of transient ischemic attack (TIA), and cerebral infarction without residual deficits; Z95.0 Presence of cardiac pacemaker; Z88.7 Allergy status to serum and vaccine; Z88.0 Allergy status to penicillin; Z88.1 Allergy status to other antibiotic agents; Z88.8 Allergy status to other drugs, medicaments and biological substances
CPT/HCPCS: 36415; 70450; 71045; 80053; 80307; 81001; 82550; 82947; 83690; 83735; 83880; 84443; 84484; 85025; 85610; 85730; 93005; 96374; 99285-25